=== PATIENT | female | born 1950 | race Caucasian/White ===

== ENCOUNTER 2017-05-03 10:02 | Outpatient (RCR) | payer MEDICARE, OTHER, SELFPAY ==
--- NOTE | 2017-05-03 10:24 | HP.OTEVAL ---
Patient's Visit Information TANYA RODRIGUEZ is a 67 year old F, referred to Occupational Therapy by Renae Martinez DO,, with a diagnosis of R 5th mallet finger. Date of Evaluation: 05/03/17 Occupational Therapist: Twyla Zee - Subjective Subjective: Arrived as walk over from [facility]. SHe noted that she is unsure how injury took place. She noted she saw Dr. Martinez prior to OT appointment and she requested hyperext. of DIP with PIP free of mallet finger splint. She noted she has been using tongue depressors for DIP support until she was able to get in. Pt. 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 Notes no pain and some decreased sensation. She was given options of custom mallet, prefab mallet, or orthoplast all completing needed alignemnt. After construction of orthoplast she did not like. Prefab mallet provided for when swelling decreased and custom made with thremoplast to be worn now until edema reduced. - Objective Concerns: Pt. noted no movement for 6 weeks. She is to schedule follow-up PRN. Once swelling decreases she is to switch to prefab mallet splint. Until then follow up will be PRN. - ROM MP: WFL PIP: PF R -4-82 through PROM; L WNL DIP: PF R -39- 15 through PROM; L WNL - Strength Tennis Ball Coverer Hand: R 38, L 59 Lateral Pinch: R 6, L 6 Tripod Pinch: R 4, L 6 - Edema DIP: slight edema at finger pad PF compared to L PF - Sensation Sensation Comments: Noted decreased sensation in R PF at this time. - Goals Goal:: Tanya to be (I) to return to all ADl/IADLs including cooking related tasks 4/5 trials 80% of the time by d/c. Goal:: Tanya to maintain correct alignment of PF DIP through use of splint 24/, 100% of the time, for next 6 weeks to decreased risk of deformity and promote increased (i). - Rehabilitation General Assessment: Tanya 67 y/o woment who in unclear of what cause inital injury. She noted that she first noticated mallet finger formation approximately 2 weeks ago. Rehabilitation Potential: Good - Anticipated Interventions Anticipated Interventions: A/AAROM/PROM, Strengthening, Orthoses, Joint Protection/Energy Conservation, Ergonomic Education, Fine Motor Coord/Yazan, ADL Training, Caregiver Training, Home Program - Visit Plan Frequency: PRN Duration: PRN General Plan: Tanya to call and return for appointment if splint does not feel comofrtable; follow up PRN. She noted Michelle does not want her to move it for 6 weeks. If splint does not feel comfortable she is to return for adjustment. She was provided with prefab Mallet and custom made mallet finger splint. When swelling decreases she is to switch to prefab mallet as it will be less bulky and provide increased comfort. Splint to be worn 24/. SHe verbalized understanding of wearing schedule, skin integrity, and follow up process. TEXT: Thank you for the opportunity to evaluate your patient. For Medicare and Medicare HMO plans, please review the plan of care and approve it. It will need to be FAXED BACK to us at [phone] for Medicare purposes. Please let me know if there are questions or concerns regarding this plan of care. Physician Signature: Date:
--- NOTE | 2017-08-06 09:44 | HP.OT.NRP ---
HP - Discharge Summary - Patient Information TANYA RODRIGUEZ was seen in my office for initial evaluation on 05/03/17. The following Plan of Care was established for this patient: Initial Frequency: PRN Initial Duration: PRN - Anticipated Interventions Anticipated Interventions: A/AAROM/PROM, Strengthening, Orthoses, Joint Protection/Energy Conservation, Ergonomic Education, Fine Motor Coord/Yazan, ADL Training, Caregiver Training, Home Program This patient was last seen in our office . Pertinent comments regarding their Occupational therapy will appear below: She was to followup PRN for splint. OT called and left message to ensure everything was going well. She never called back and will be d/c'd at this time. At this point I will be discontinuing this patient from occupational therapy. I would be happy to see this patient again in the future if found appropriate by the physician. Thank you! Twyla Zee
== END 2017-05-03 19:00 | disposition home or self-care (01) ==
LOC: OT 10:02
PROVIDERS: Family Provider Family Medicine Geriatric Medicine; PCP Family Medicine Geriatric Medicine; Visit Provider Orthopaedic Surgery
DX: M20.011 Mallet finger of right finger(s) (principal)
CPT/HCPCS: 97165; 97760; G8988

== ENCOUNTER → 2017-08-08 12:11 | Outpatient (CLI) | payer MEDICARE, OTHER, SELFPAY ==
[2017-08-08 17:22] LABS: Absolute Lymphocyte Count 1.36 X10^3/ul (0.83-4.51); Absolute Neutrophil Count 4.2 X10^3/uL (2.0-7.7); Basophil# 0.02 X10^3/uL; Basophil% 0.3 % (0-1); Eosinophil# 0.03 X10^3/uL; Eosinophils% 0.5 % (0-5); Hematocrit 39.9 % (37-47); Hemoglobin 13.4 g/dl (12.0-15.0); Lymphocyte # 1.36 X10^3/ul (4.0); Lymphocyte % 21.9 % (19-41); Mean Corp Hgb Conc 33.6 g/gl (32-36); Mean Corpuscular Hgb 32.3 pg (27.0-32.0); Mean Corpuscular Volume 96.1 fL (81-99); Mean Platelet Vol. 10.1 fl (6.2-12.0); Monocyte# 0.58 X10^3/uL; Monocyte% 9.4 % (0-10); Neutrophil % 67.7 % (47-70); POSITIVE COUNT NO; POSITIVE DIFFERENTIAL NO; POSITIVE MORPHOLOGY NO; Platelet Count 325 K/mm3 (150-450); RBC Distribution Width CV 11.4 % (11.6-14.6); RBC Distribution Width SD 39.3 fl (35.1-43.9); Red Blood Count 4.15 M/mm3 (4.2-5.4); White Blood Count 6.2 K/mm3 (4.4-11.0)
[2017-08-08 17:44] LABS: Vitamin D,25 Hydroxy 98.5 ng/mL (29.95-100.01)
[2017-08-08 17:49] LABS: ALB/GLOB Ratio 1.3 RATIO (0.9-2.4); AST(SGOT) 22 U/L (15-37); Alanine Aminotransfer ALT/SGPT 24 U/L (13-56); Albumin, Serum 3.9 g/dL (3.2-5.0); Alkaline Phosphatase 50 U/L (45-117); Anion Gap 5 (5-15); BUN 14 mg/dL (7-18); BUN/Creat Ratio 22.1 RATIO (10-20); Calcium,Total 8.6 mg/dL (8.5-10.1); Chloride 103 mmol/L (98-107); Creatinine, Serum 0.63 mg/dL (0.55-1.02); EST Glomerular Filtration Rate 100 mL/min (>60); Est Glom Filt Rate - Afr Amer 121 mL/min (>60); Globulin 3.1 g/dL (2.2-4.2); Glucose 90 mg/dL (74-106); Potassium 4.2 mmol/L (3.5-5.1); Sodium Level 139 mmol/L (136-145); Thyroid Stim Hormone (TSH) 3.46 uIU/mL (0.358-3.74)
[2017-08-10 12:04] LABS: Hep C Antibodies <0.1 s/co ratio (0.0-0.9)
== END ==
PROVIDERS: Family Provider Family Medicine Geriatric Medicine; PCP Family Medicine Geriatric Medicine; Visit Provider Family Medicine Geriatric Medicine
DX: R53.83 Other fatigue (principal); E55.9 Vitamin D deficiency, unspecified; Z13.89 Encounter for screening for other disorder
CPT/HCPCS: 36415; 80053; 82306; 84443; 85025; 86803

== ENCOUNTER → 2017-08-22 14:22 | Outpatient (CLI) | payer MEDICARE, OTHER, SELFPAY | PROVIDERS: Family Provider Family Medicine Geriatric Medicine; PCP Family Medicine Geriatric Medicine; Visit Provider Family Medicine Geriatric Medicine | DX: R50.9 Fever, unspecified (principal) | CPT/HCPCS: 87633 ==

== ENCOUNTER 2017-09-22 20:15 | Emergency (ER) | payer MEDICARE, OTHER, SELFPAY ==
[2017-09-22 20:15] VITALS: BP 131/66; PULSE 78; RESP 16; TEMP 36.6; O2SAT 98; BMI 19.8
--- NOTE | 2017-09-22 20:59 | ED.VISSUMM ---
- ER Visit Summary Date of Service: 09/22/17 Chief Complaint: I got bit by a cactus History of Present Illness: The patient is a 67 F presenting for evaluation secondary to some abnormalities of the right hand. Patient states that she was working in the garden and a cactus stuck her through her glove. She states that she immediately developed bruising on her right hand. She states that there is pain. She denies any fevers. Review of systems otherwise negative. Physical Examination: Physical exam unremarkable except for examination of the right hand. There is proximally a 4 cm area of ecchymosis over the dorsum of the hand going over the snuff box area. No evidence of subcutaneous emphysema or lymphangitic streaking. Test Results: None indicated Emergency Department Course and Treatment: Presenting for evaluation due to changes in the right hand after being stuck by a cactus. This seems most consistent with a hematoma, but the patient will be treated for the off chance that this is an early cellulitis. Patient will be started on Keflex, given a first dose in the emergency department, will be discharged with a course of this. She was given signs and symptoms which to return. Disposition: Discharge Impression: 1. Right hand hematoma This note was generated with [employer] dictation software. It may contain incorrect words, spelling, and punctuation that were not noted in review of the chart prior to signing ED Disposition - Plan for ED Patient: Disposition: Home or Assisted Living Chief Complaint: Abscess Diagnosis: Hematoma Instructions: ED Hematoma Prescriptions: Cephalexin [Keflex] 500 mg PO Q6 #40 cap Referrals: Anders Lundberg Chi, MD [Primary Care Provider] - 5-7 Days
[2017-09-22] MEDS: Cephalexin 250 MG Capsule 500 MG PO (21:04)
[2017-09-22 21:07] VITALS: BP 130/72; PULSE 80; RESP 18; O2SAT 96
== END 2017-09-22 21:07 | disposition home or self-care (01) ==
PROVIDERS: Emergency Provider Emergency Medicine; Family Provider Family Medicine Geriatric Medicine; PCP Family Medicine Geriatric Medicine
DX: S60.221A Contusion of right hand, initial encounter (principal); W45.8XXA Other foreign body or object entering through skin, initial encounter; Y93.H2 Activity, gardening and landscaping; Y92.096 Garden or yard of other non-institutional residence as the place of occurrence of the external cause; Y99.8 Other external cause status
CPT/HCPCS: 99283

== ENCOUNTER → 2017-12-26 15:51 | Outpatient (CLI) | payer MEDICARE, OTHER, SELFPAY ==
--- NOTE | 2017-12-26 15:54 | BI_ITS ---
MAMMOGRAPHY - BILATERAL SCREENING REASON FOR EXAM: Female, 67 years old. Routine annual screening examination. PERTINENT HISTORY: Aunt with breast cancer. Occasional right lateral breast pain. TECHNIQUE: Digital bilateral breast shyam (3D mammographic acquisition) in the CC and MLO projections. 2-D mediolateral oblique (MLO) and craniocaudad (CC) views of both breasts were obtained. CAD: Full Field Digital Mammography with Computer Added Detection was performed. COMPARISON: Comparison is made with prior study dated November 21, 2016 and November 11, 2015. FINDINGS: Breast Composition: The breasts are heterogeneously dense, which may obscure small masses. There are no dominant masses or suspicious calcifications. No other significant abnormalities are identified. There has been no significant change since the prior study. BI/SCREENING MAMM (CAD), BILAT IMPRESSION: Stable bilateral screening mammogram. Yearly follow-up mammogram recommended. (A) ASSESSMENT CATEGORY: BIRADS Category 1: Negative. A letter regarding these results will be sent to the patient by the facility within 30 days. Approximately 10% of breast cancers are not detected by mammography. A normal mammogram should not delay biopsy of a clinically suspicious abnormality. [id number] Electronically Signed: Matti Sevilla MD at 8:06 EDT Tel [phone], Service support ,
== END ==
PROVIDERS: Family Provider Family Medicine Geriatric Medicine; PCP Family Medicine Geriatric Medicine; Visit Provider Family Medicine Geriatric Medicine
DX: Z12.31 Encounter for screening mammogram for malignant neoplasm of breast (principal)
CPT/HCPCS: 77063; 77067

== ENCOUNTER → 2018-02-20 16:22 | Outpatient (CLI) | payer MEDICARE, OTHER, SELFPAY ==
[2018-02-20 17:09] LABS: Absolute Lymphocyte Count 1.56 X10^3/ul (0.83-4.51); Absolute Neutrophil Count 5.3 X10^3/uL (2.0-7.7); Basophil# 0.02 X10^3/uL; Basophil% 0.3 % (0-1); Eosinophil# 0.04 X10^3/uL; Eosinophils% 0.5 % (0-5); Lymphocyte # 1.56 X10^3/ul (4.0); Lymphocyte % 20.5 % (19-41); Mean Corp Hgb Conc 32.5 g/gl (32-36); Mean Corpuscular Hgb 31.8 pg (27.0-32.0); Mean Corpuscular Volume 97.8 fL (81-99); Mean Platelet Vol. 9.7 fl (6.2-12.0); Monocyte# 0.71 X10^3/uL; Monocyte% 9.3 % (0-10); Neutrophil # 5.28 X10^3/uL (2.7-7.7); Neutrophil % 69.3 % (47-70); Platelet Count 324 K/mm3 (150-450); RBC Distribution Width CV 11.6 % (11.6-14.6); Red Blood Count 4.09 M/mm3 (4.2-5.4); White Blood Count 7.6 K/mm3 (4.4-11.0)
[2018-02-20 17:18] LABS: POSITIVE COUNT NO; POSITIVE DIFFERENTIAL NO; POSITIVE MORPHOLOGY NO
[2018-02-20 17:30] LABS: Vitamin D,25 Hydroxy 107.2 ng/mL (29.95-100.01)
[2018-02-20 17:45] LABS: ALB/GLOB Ratio 1.2 RATIO (0.9-2.4); AST(SGOT) 13 U/L (15-37); Alanine Aminotransfer ALT/SGPT 23 U/L (13-56); Alkaline Phosphatase 63 U/L (45-117); Anion Gap 8 (5-15); BUN 24 mg/dL (7-18); BUN/Creat Ratio 32.3 RATIO (10-20); Calcium,Total 8.7 mg/dL (8.5-10.1); Chloride 107 mmol/L (98-107); Creatinine, Serum 0.74 mg/dL (0.55-1.02); EST Glomerular Filtration Rate 83 mL/min (>60); Est Glom Filt Rate - Afr Amer 100 mL/min (>60); Globulin 3.2 g/dL (2.2-4.2); Glucose 94 mg/dL (74-106); Potassium 4.3 mmol/L (3.5-5.1); Protein, Total 7.2 g/dL (6.4-8.2); Sodium Level 143 mmol/L (136-145); Thyroid Stim Hormone (TSH) 2.95 uIU/mL (0.358-3.74)
[2018-02-21 07:26] LABS: T3 Uptake 35 % (30-39); T4 Free Direct 0.97 ng/dL (0.76-1.46)
== END ==
PROVIDERS: Family Provider Family Medicine Geriatric Medicine; PCP Family Medicine Geriatric Medicine; Referring Provider Family Medicine Geriatric Medicine; Visit Provider Family Medicine Geriatric Medicine
DX: E55.9 Vitamin D deficiency, unspecified (principal); R53.83 Other fatigue; N39.0 Urinary tract infection, site not specified
CPT/HCPCS: 36415; 80053; 82306; 84439; 84443; 84479; 85025; 87086; 87088

== ENCOUNTER → 2018-08-13 16:21 | Outpatient (CLI) | payer MEDICARE, OTHER, SELFPAY ==
[2018-08-13 17:28] LABS: Absolute Lymphocyte Count 1.66 X10^3/ul (0.83-4.51); Absolute Neutrophil Count 4.1 X10^3/uL (2.0-7.7); Basophil# 0.03 X10^3/uL; Basophil% 0.5 % (0-1); Eosinophil# 0.04 X10^3/uL; Eosinophils% 0.6 % (0-5); Hematocrit 38.7 % (37-47); Hemoglobin 12.7 g/dl (12.0-15.0); Lymphocyte # 1.66 X10^3/ul (4.0); Lymphocyte % 26.1 % (19-41); Mean Corp Hgb Conc 32.8 g/gl (32-36); Mean Corpuscular Hgb 30.5 pg (27.0-32.0); Mean Platelet Vol. 10.1 fl (6.2-12.0); Monocyte# 0.54 X10^3/uL; Monocyte% 8.5 % (0-10); Neutrophil # 4.09 X10^3/uL (2.7-7.7); Neutrophil % 64.1 % (47-70); Platelet Count 323 K/mm3 (150-450); RBC Distribution Width CV 11.3 % (11.6-14.6); RBC Distribution Width SD 37.8 fl (35.1-43.9); Red Blood Count 4.16 M/mm3 (4.2-5.4); White Blood Count 6.4 K/mm3 (4.4-11.0)
[2018-08-13 17:30] LABS: POSITIVE COUNT NO; POSITIVE DIFFERENTIAL NO; POSITIVE MORPHOLOGY NO
[2018-08-13 17:53] LABS: Vitamin D,25 Hydroxy 56.4 ng/mL (29.95-100.01)
[2018-08-13 18:20] LABS: ALB/GLOB Ratio 1.2 RATIO (0.9-2.4); AST(SGOT) 25 U/L (15-37); Alanine Aminotransfer ALT/SGPT 24 U/L (13-56); Albumin, Serum 3.8 g/dL (3.2-5.0); Alkaline Phosphatase 57 U/L (45-117); Anion Gap 8 (5-15); BUN 10 mg/dL (7-18); BUN/Creat Ratio 14.3 RATIO (10-20); Calcium,Total 8.9 mg/dL (8.5-10.1); Chloride 103 mmol/L (98-107); EST Glomerular Filtration Rate 89 mL/min (>60); Est Glom Filt Rate - Afr Amer 107 mL/min (>60); Globulin 3.2 g/dL (2.2-4.2); Glucose 78 mg/dL (74-106); Potassium 4.2 mmol/L (3.5-5.1); Sodium Level 139 mmol/L (136-145); Thyroid Stim Hormone (TSH) 3.25 uIU/mL (0.358-3.74)
== END ==
PROVIDERS: Family Provider Family Medicine Geriatric Medicine; PCP Family Medicine Geriatric Medicine; Visit Provider Family Medicine Geriatric Medicine
DX: E55.9 Vitamin D deficiency, unspecified (principal); R53.83 Other fatigue
CPT/HCPCS: 36415; 80053; 82306; 84443; 85025

== ENCOUNTER → 2018-12-30 16:20 | Outpatient (CLI) | payer MEDICARE, OTHER, SELFPAY ==
--- NOTE | 2018-12-30 16:24 | BI_ITS ---
MAMMOGRAPHY - BILATERAL SCREENING REASON FOR EXAM: Female, 68 years old. Routine annual screening examination. PERTINENT HISTORY: Aunt with breast cancer. TECHNIQUE: Digital bilateral breast kacie (3D mammographic acquisition) in the CC and MLO projections. 2-D mediolateral oblique (MLO) and craniocaudad (CC) views of both breasts were obtained. CAD: Full Field Digital Mammography with Computer Added Detection was performed. COMPARISON: Comparison is made with prior study dated December 26, 2017 and November 21, 2016. FINDINGS: Breast Composition: The breasts are heterogeneously dense, which may obscure small masses. There are no dominant masses or suspicious calcifications. No other significant abnormalities are identified. There has been no significant change since the prior study. BI/SCREEN MAMM (CAD) W/KACIE BILAT IMPRESSION: Stable bilateral screening mammogram. Yearly follow-up mammogram recommended. (A) ASSESSMENT CATEGORY: BIRADS Category 1: Negative. A letter regarding these results will be sent to the patient by the facility within 30 days. Approximately 10% of breast cancers are not detected by mammography. A normal mammogram should not delay biopsy of a clinically suspicious abnormality. [id number] Electronically Signed: Matti Sevilla, at 8:32 EDT , Service support ,
== END ==
PROVIDERS: Family Provider Family Medicine Geriatric Medicine; PCP Family Medicine Geriatric Medicine; Referring Provider Family Medicine Geriatric Medicine; Visit Provider Family Medicine Geriatric Medicine
DX: Z12.31 Encounter for screening mammogram for malignant neoplasm of breast (principal)
CPT/HCPCS: 77063; 77067

== ENCOUNTER → 2019-02-11 16:56 | Outpatient (CLI) | payer MEDICARE, OTHER, SELFPAY ==
[2019-02-11 17:53] LABS: Absolute Lymphocyte Count 2.39 X10^3/uL (0.83-4.51); Absolute Neutrophil Count 6.7 X10^3/uL (2.0-7.7); Basophil# 0.05 X10^3/uL; Basophil% 0.5 % (0-1); Eosinophil# 0.04 X10^3/uL; Eosinophils% 0.4 % (0-5); Hematocrit 42.1 % (37-47); Hemoglobin 13.5 g/dL (12.0-15.0); Lymphocyte # 2.39 X10^3/ul (4.0); Lymphocyte % 23.2 % (19-41); Mean Corp Hgb Conc 32.1 g/dL (32-36); Mean Corpuscular Hgb 31.7 pg (27.0-32.0); Mean Corpuscular Volume 98.8 fL (81-99); Mean Platelet Vol. 9.9 fl (6.2-12.0); Monocyte# 1.03 X10^3/uL; NRBC Flagged by Analyzer 0 % (0-5); Neutrophil # 6.74 X10^3/uL (2.7-7.7); Neutrophil % 65.5 % (47-70); Platelet Count 328 K/mm3 (150-450); RBC Distribution Width CV 11.7 % (11.6-14.6); RBC Distribution Width SD 42.6 fl (35.1-43.9); Red Blood Count 4.26 M/mm3 (4.2-5.4); White Blood Count 10.3 K/mm3 (4.4-11.0)
[2019-02-11 18:11] LABS: Vitamin D,25 Hydroxy 28.8 ng/mL (29.95-100.01)
[2019-02-11 18:25] LABS: ALB/GLOB Ratio 1.3 RATIO (0.9-2.4); AST(SGOT) 18 U/L (15-37); Alanine Aminotransfer ALT/SGPT 17 U/L (13-56); Albumin, Serum 4.3 g/dL (3.2-5.0); Alkaline Phosphatase 64 U/L (45-117); Anion Gap 7 (5-15); BUN 19 mg/dL (7-18); BUN/Creat Ratio 23.5 RATIO (10-20); Calcium,Total 8.9 mg/dL (8.5-10.1); Chloride 103 mmol/L (98-107); Creatinine, Serum 0.81 mg/dL (0.55-1.02); EST Glomerular Filtration Rate 75 mL/min (>60); Est Glom Filt Rate - Afr Amer 91 mL/min (>60); Globulin 3.4 g/dL (2.2-4.2); Glucose 80 mg/dL (74-106); Potassium 3.8 mmol/L (3.5-5.1); Protein, Total 7.7 g/dL (6.4-8.2); Sodium Level 137 mmol/L (136-145); Thyroid Stim Hormone (TSH) 3.43 uIU/mL (0.358-3.74)
== END ==
PROVIDERS: Family Provider Family Medicine Geriatric Medicine; PCP Family Medicine Geriatric Medicine; Visit Provider Family Medicine Geriatric Medicine
DX: R53.83 Other fatigue (principal); E55.9 Vitamin D deficiency, unspecified
CPT/HCPCS: 36415; 80053; 82306; 84443; 85025

== ENCOUNTER → 2019-08-19 16:21 | Outpatient (CLI) | payer MEDICARE, OTHER, SELFPAY ==
[2019-05-15 16:10] VITALS: BMI 19.8
[2019-08-19 17:30] LABS: Absolute Lymphocyte Count 1.56 X10^3/uL (0.83-4.51); Absolute Neutrophil Count 2.5 X10^3/uL (2.0-7.7); Basophil# 0.03 X10^3/uL; Basophil% 0.7 % (0-1); Eosinophil# 0.03 X10^3/uL; Eosinophils% 0.7 % (0-5); Hematocrit 34.7 % (37-47); Hemoglobin 11.5 g/dL (12.0-15.0); Lymphocyte # 1.56 X10^3/ul (4.0); Lymphocyte % 34.4 % (19-41); Mean Corp Hgb Conc 33.1 g/dL (32-36); Mean Corpuscular Hgb 32.8 pg (27.0-32.0); Mean Corpuscular Volume 98.9 fL (81-99); Mean Platelet Vol. 9.9 fl (6.2-12.0); Monocyte# 0.42 X10^3/uL; Monocyte% 9.3 % (0-10); NRBC Flagged by Analyzer 0 % (0-5); Neutrophil # 2.49 X10^3/uL (2.7-7.7); Neutrophil % 54.7 % (47-70); Platelet Count 263 K/mm3 (150-450); RBC Distribution Width CV 11.3 % (11.6-14.6); RBC Distribution Width SD 40.7 fl (35.1-43.9); Red Blood Count 3.51 M/mm3 (4.2-5.4); White Blood Count 4.5 K/mm3 (4.4-11.0)
[2019-08-19 17:43] LABS: ALB/GLOB Ratio 1.3 RATIO (0.9-2.4); AST(SGOT) 20 U/L (15-37); Alanine Aminotransfer ALT/SGPT 17 U/L (13-56); Albumin, Serum 3.7 g/dL (3.2-5.0); Alkaline Phosphatase 45 U/L (45-117); Anion Gap 6 (5-15); BUN 11 mg/dL (7-18); BUN/Creat Ratio 15.2 RATIO (10-20); Calcium,Total 8.5 mg/dL (8.5-10.1); Chloride 102 mmol/L (98-107); Creatinine, Serum 0.72 mg/dL (0.55-1.02); EST Glomerular Filtration Rate 85 mL/min (>60); Est Glom Filt Rate - Afr Amer 103 mL/min (>60); Globulin 2.9 g/dL (2.2-4.2); Glucose 92 mg/dL (74-106); Potassium 4.1 mmol/L (3.5-5.1); Protein, Total 6.6 g/dL (6.4-8.2); Sodium Level 137 mmol/L (136-145); Thyroid Stim Hormone (TSH) 1.17 uIU/mL (0.358-3.74)
[2019-08-19 18:20] LABS: Vitamin D,25 Hydroxy 52.9 ng/mL
== END ==
PROVIDERS: PCP Family Medicine Geriatric Medicine; Visit Provider Family Medicine Geriatric Medicine
DX: E55.9 Vitamin D deficiency, unspecified (principal); R53.83 Other fatigue
CPT/HCPCS: 36415; 80053; 82306; 84443; 85025

== ENCOUNTER → 2019-09-08 15:31 | Outpatient (CLI) | payer MEDICARE, OTHER, SELFPAY ==
[2019-05-15 16:10] VITALS: BMI 19.8
--- NOTE | 2019-09-08 15:38 | RAD_ITS ---
STUDY: X-RAY - LEFT FOOT CLINICAL: Female, 69 years old. LEFT BIG TOE PAIN TECHNIQUE: 3 view(s) of the foot. COMPARISON: None. FINDINGS: Normal talus, calcaneus, and tarsal bones. Normal visualized subtalar, talonavicular, calcaneocuboid, tarsal and tarsometatarsal articulations. Normal metatarsi. There is degenerative arthrosis of the metatarsophalangeal joint of the hallux . Normal tibial and fibular sesamoid bones. There is degenerative arthrosis of the interphalangeal joint of the great toe. Normal phalanges of the great toe. Normal second through fifth metatarsophalangeal joints. PIP and DIP joint arthrosis The soft tissue structures are unremarkable. RAD/Foot min 3 Views IMPRESSION: Degenerative arthrosis demonstrated fracture or suspicious osseous lesion Electronically Signed: Davis Franco MD at 15:54 EDT , Service support ,
== END ==
PROVIDERS: PCP Family Medicine Geriatric Medicine; Visit Provider Family Medicine Geriatric Medicine
DX: M79.609 Pain in unspecified limb (principal)
CPT/HCPCS: 73630

== ENCOUNTER → 2019-09-17 16:24 | Outpatient (CLI) | payer MEDICARE, OTHER, SELFPAY ==
[2019-05-15 16:10] VITALS: BMI 19.8
--- NOTE | 2019-09-17 16:32 | RAD_ITS ---
STUDY: X-RAY - LUMBAR SPINE REASON FOR EXAM: Female, 69 years old. Worsening back and hip pain TECHNIQUE: 3 view(s) of the lumbar spine were obtained. COMPARISON: 2009 FINDINGS: Normal lumbar lordosis. There is a mild dextroscoliosis of the lumbar spine. There is a normal alignment of the vertebrae in the lateral view. Normal vertebral bodies and endplates. There is multi-level degenerative disc disease with multi-level disc space narrowing. There is no demonstrated fracture. The soft tissue structures are unremarkable. RAD/Lumbar Spine 2 or 3 Views IMPRESSION: Degenerative changes of the spine, as detailed above. Electronically Signed: Davis Franco MD at 9:16 EDT , Service support ,
--- NOTE | 2019-09-17 16:32 | RAD_ITS ---
STUDY: X-RAY - PELVIS AND LEFT HIP REASON FOR EXAM: Female, 69 years old. Worsening left hip pain TECHNIQUE: 3 views of the pelvis and hip. COMPARISON: 2016 FINDINGS: There is a non-specific bowel gas pattern. Normal visualized soft tissue structures. There is diffuse demineralization of the osseous structures. There is narrowing with cortical sclerosis and osteophyte formation of the sacroiliac joint consistent with degenerative osteoarthritic changes. Normal bilateral superior and inferior pubic rami. Normal pubic symphysis. Normal bilateral ischial tuberosities. Normal visualized femoral head. There is osteoarthritic spur formation of the acetabular rim. There is moderate to severe articular joint space narrowing of the hip, findings have progressed since the previous study. RAD/HIP, UNI W/ Pelvis 2-3 Views IMPRESSION: Progression of left hip arthrosis since 2016. No demonstrated fracture or significant subchondral change. Age consistent right hip and SI joint arthrosis Electronically Signed: Davis Franco MD at 9:06 EDT , Service support ,
[2019-09-17 17:46] LABS: Thyroid Stim Hormone (TSH) 0.26 uIU/mL (0.358-3.74)
== END ==
PROVIDERS: Internal Medicine Endocrinology, Diabetes & Metabolism; PCP Family Medicine Geriatric Medicine; Referring Provider Family Medicine Geriatric Medicine; Visit Provider Family Medicine Geriatric Medicine
DX: E03.9 Hypothyroidism, unspecified (principal); M16.0 Bilateral primary osteoarthritis of hip
CPT/HCPCS: 36415; 72100; 73502; 84439; 84443

== ENCOUNTER → 2019-10-29 17:57 | Outpatient (CLI) | payer MEDICARE, OTHER, SELFPAY ==
[2019-05-15 16:10] VITALS: BMI 19.8
== END ==
PROVIDERS: PCP Family Medicine Geriatric Medicine; Referring Provider Family Medicine Geriatric Medicine; Visit Provider Family Medicine Geriatric Medicine
DX: N39.0 Urinary tract infection, site not specified (principal)
CPT/HCPCS: 87077; 87086; 87088; 87186

== ENCOUNTER → 2019-11-07 16:20 | Outpatient (CLI) | payer MEDICARE, OTHER, SELFPAY ==
[2019-05-15 16:10] VITALS: BMI 19.8
--- NOTE | 2019-11-07 16:26 | MRI_ITS ---
STUDY: MRI LUMBAR SPINE WITHOUT CONTRAST REASON FOR EXAM: Female, 69 years old. STENOSIS -- pain low back and left leg x 2 months, prev lumbar surgery 1984 TECHNIQUE: Standardized fat and water weighted pulse sequences were obtained in the sagittal and axial planes. COMPARISON: Lumbar spine x-rays 09/17/2019 MRI of the lumbar spine 08/30/2004 FINDINGS: T12-L1: Normal endplates. Narrowed disc space with desiccation of disc and minimal annular bulge. Normal central canal and bilateral lateral recesses. Normal bilateral intervertebral neural foramina. Normal lumbar lordosis. There is no substantial scoliosis. Normal conus medullaris that terminates at the L1-2: Normal endplates. Narrowed disc space with desiccation of the disc and minimal annular bulge.. Normal bilateral facet joints. Normal central canal and bilateral lateral recesses. Normal bilateral intervertebral neural foramina. L2-3: Normal endplates. Normal disc height, desiccation and mild annular bulge.. Normal bilateral facet joints. Normal central canal and bilateral lateral recesses. Normal bilateral intervertebral neural foramina. L3-4: Normal endplates. Normal disc height, desiccation and mild annular bulge.. Mild facet arthropathy and thickening of ligamenta flava.. Normal central canal and bilateral lateral recesses. Mild to moderate bilateral neuroforaminal encroachment.. L4-5: Normal endplates. Normal disc height, desiccation and tiny right foraminal disc protrusion.. Bilateral facet arthropathy.. Normal central canal and mild bilateral recess encroachment.. Minor right foraminal encroachment. L5-S1: Status post bilateral laminectomy. Normal endplates. Normal disc height, hydration and morphology. Normal bilateral facet joints. Normal central canal and bilateral lateral recesses. Normal bilateral intervertebral neural foramina. Normal visualized sacral ala. Normal visualized paraspinous soft tissue structures. There has been interval progression of disc disease since prior exam and the postsurgical changes are new. MRI/Spine Lumbar (Routine) IMPRESSION: No evidence for acute fracture or other significant bony pathology. Status post bilateral laminectomy at L5-S1. Spinal stenosis at L4-5 secondary to tiny right foraminal disc protrusion and bilateral facet arthropathy. Mild to moderate bilateral neuroforaminal stenosis at L3-4 secondary to mild annular bulge and facet arthropathy with thickening of ligamenta flava Electronically Signed: Carmelo Rogel MD at 19:36 EDT , Service support ,
== END ==
PROVIDERS: PCP Family Medicine Geriatric Medicine; Referring Provider Family Medicine Geriatric Medicine; Visit Provider Family Medicine Geriatric Medicine
DX: M51.86 Other intervertebral disc disorders, lumbar region (principal)
CPT/HCPCS: 72148

== ENCOUNTER → 2019-11-18 16:10 | Outpatient (CLI) | payer MEDICARE, OTHER, SELFPAY ==
[2019-11-12 15:03] VITALS: BMI 19.8
== END ==
PROVIDERS: PCP Family Medicine Geriatric Medicine; Visit Provider Family Medicine Geriatric Medicine
DX: N39.0 Urinary tract infection, site not specified (principal)
CPT/HCPCS: 87077; 87086; 87088; 87186

== ENCOUNTER → 2019-11-21 16:32 | Outpatient (CLI) | payer MEDICARE, OTHER, SELFPAY ==
[2019-11-12 15:03] VITALS: BMI 19.8
--- NOTE | 2019-11-21 16:37 | CT_ITS ---
STUDY: CT ABDOMEN AND PELVIS WITHOUT CONTRAST REASON FOR EXAM: Female, 69 years old. RT FLANK PAIN and LLQ pain. Prior hysterectomy. RADIATION DOSAGE (If Supplied By Facility): CTDIvol = ( 6.88 ) mGy, DLP = ( 340.32 ) mGycm TECHNIQUE: Transaxial images were obtained from the dome of the diaphragm to the symphysis pubis without oral contrast, and without intravenous contrast. Sagittal and coronal images were reconstructed. Individualized dose optimization techniques were used for this CT. COMPARISON: 09/25/2011. FINDINGS: The visualized lung bases are unremarkable. The visualized portions of the heart are within normal limits. 7 mm right hepatic cyst in the liver. Normal gallbladder and extrahepatic biliary system. Normal spleen. Normal pancreas. Normal bilateral adrenal glands. Normal right kidney. Normal left kidney. Normal visualized stomach. Normal small intestine. Fecal retention in the colon. The appendix is not visualized. Normal abdominal aorta. Normal inferior vena cava. Normal retroperitoneum. Normal urinary bladder. Normal abdominal wall. Mild degenerative changes and slight scoliosis. CT/Abdomen/Pelvis without Cont IMPRESSION: Diffuse colonic fecal retention. No renal stones or hydronephrosis bilaterally. Hepatic cyst. Electronically Signed: Lambert Rojas DO at 17:24 EDT Tel [phone], Service support ,
== END ==
PROVIDERS: PCP Family Medicine Geriatric Medicine; Referring Provider Family Medicine Geriatric Medicine; Visit Provider Family Medicine Geriatric Medicine
DX: R10.30 Lower abdominal pain, unspecified (principal)
CPT/HCPCS: 74176

== ENCOUNTER → 2019-12-19 16:46 | Outpatient (CLI) | payer MEDICARE, OTHER, SELFPAY ==
[2019-12-08 16:22] VITALS: BMI 19.8
--- NOTE | 2019-12-19 16:48 | CT_ITS ---
CT of the left lower extremity INDICATION: Left hip pain, preop May toe arthroplasty TECHNIQUE: Multiple thin section axial CT images of the left lower extremity were obtained through the hip joint, and knee joint and filmed in bone windows. Dose limiting techniques were utilized. Furthermore, sagittal and coronal reconstructions were performed. Next FINDINGS: No abnormal soft tissue mass, lymphadenopathy, fluid collection. No acute fracture or dislocation. No lytic or blastic lesions. Moderate joint space narrowing and osteophyte formation of the left hip joint consistent with moderate arthrosis. IMPRESSION: Moderate left hip arthrosis. Electronically Signed: Mikael Jorge MD at 17:21 EDT Tel , Service support , CT/Extremity Lower without Contra
== END ==
PROVIDERS: PCP Family Medicine Geriatric Medicine; Referring Provider Orthopaedic Surgery; Visit Provider Orthopaedic Surgery
DX: M16.12 Unilateral primary osteoarthritis, left hip (principal)
CPT/HCPCS: 73700

== ENCOUNTER → 2019-12-22 07:08 | Outpatient (CLI) | payer MEDICARE, OTHER, SELFPAY ==
[2019-12-08 16:22] VITALS: BMI 19.8
== END ==
PROVIDERS: PCP Family Medicine Geriatric Medicine; Referring Provider Family Medicine Geriatric Medicine; Visit Provider Family Medicine Geriatric Medicine
DX: R94.31 Abnormal electrocardiogram [ECG] [EKG] (principal)
CPT/HCPCS: 78452; 93017; A9500; A4216

== ENCOUNTER 2019-12-23 07:32 | Day surgery (SDC) | payer MEDICARE, OTHER, SELFPAY ==
[2019-12-08 16:22] VITALS: BMI 19.8
--- NOTE | 2019-12-16 15:58 | EKG12_ITS ---
Test Reason : PRE-OP Blood Pressure : / mmHG Vent. Rate : 068 BPM Atrial Rate : 068 BPM P-R Int : 120 ms QRS Dur : 076 ms QT Int : 434 ms P-R-T Axes : 058 -47 031 degrees QTc Int : 461 ms Normal sinus rhythm Left anterior fascicular block Abnormal ECG Confirmed by FAIZAN VIRGEN, CINDA ([id number]), film and video editor FEMI GAMINO ([id number]) on 12/17/2019 9:31:52 AM Referred By: Sivakumar Saba Confirmed By:CINDA GLORIA MD
[2019-12-16 16:23] LABS: Bacteria 0 SEEN /hpf (None Seen); Mucous, Urine 0 SEEN /hpf (<or=2+); Red Blood Cells-Urine 0 SEEN /hpf (0-5); Squamous Epithelial Cells - UA 0 SEEN /hpf (5-10); White Blood Cells 0 SEEN /hpf (0-5)
[2019-12-16 16:45] LABS: Color, Urine Yellow (Yellow); Glucose, Dipstick Normal (Normal); Ketone-Dipstick 5 mg/dl (Negative); Leukocyte Esterase-Dipstick 25 /ul (Negative); Nitrite-Dipstick Negative (Negative); Occult Blood-Urine 25 /ul (Negative); Protein-Dipstick Negative (Negative); Urine Bilirubin Dipstick Negative (Negative); Urine Clarity Clear (Clear); Urine Urobilinogen Normal (Normal); Urine pH 6.5 (5.0 - 8.0)
[2019-12-16 16:49] LABS: Absolute Neutrophil Count 4.4 X10^3/uL (2.0-7.7); Basophil# 0.02 X10^3/uL; Basophil% 0.3 % (0-1); Eosinophil# 0.01 X10^3/uL; Eosinophils% 0.2 % (0-5); Hematocrit 40.1 % (37-47); Hemoglobin 13.3 g/dL (12.0-15.0); Lymphocyte % 17.8 % (19-41); Mean Corp Hgb Conc 33.2 g/dL (32-36); Mean Corpuscular Hgb 33.2 pg (27.0-32.0); Mean Platelet Vol. 8.9 fl (6.2-12.0); Monocyte# 0.66 X10^3/uL; Monocyte% 10.7 % (0-10); NRBC Flagged by Analyzer 0 % (0-5); Neutrophil # 4.35 X10^3/uL (2.7-7.7); Neutrophil % 70.5 % (47-70); Platelet Count 358 K/mm3 (150-450); RBC Distribution Width CV 11.1 % (11.6-14.6); RBC Distribution Width SD 41.1 fl (35.1-43.9); Red Blood Count 4.01 M/mm3 (4.2-5.4); White Blood Count 6.2 K/mm3 (4.4-11.0)
[2019-12-16 16:57] LABS: Anion Gap 5 (5-15); BUN 9 mg/dL (7-18); BUN/Creat Ratio 13.4 RATIO (10-20); Calcium,Total 8.8 mg/dL (8.5-10.1); Chloride 102 mmol/L (98-107); Creatinine, Serum 0.67 mg/dL (0.55-1.02); EST Glomerular Filtration Rate 93 mL/min (>60); Est Glom Filt Rate - Afr Amer 112 mL/min (>60); Glucose 97 mg/dL (74-106); Sodium Level 136 mmol/L (136-145)
[2019-12-16 17:09] LABS: Partial Thromboplast Time 27.6 Seconds (24.1-36.2)
[2019-12-16 17:22] LABS: Magnesium 2.5 mg/dL (1.6-2.6); Thyroid Stim Hormone (TSH) 1.58 uIU/mL (0.358-3.74)
[2019-12-23] VITALS (13 sets, daily range): BP systolic 107–133; BP diastolic 58–76; PULSE 47–79; RESP 14–16; TEMP 36.2–37.1; O2SAT 92–100; BMI 21.2
[2019-12-23] MEDS: Gabapentin 600 MG Tablet PO (10:06)
[2019-12-23] MEDS: Celecoxib 200 MG Capsule 400 MG PO (10:06)
[2019-12-23] MEDS: Acetaminophen 500 MG Tablet 1000 MG PO ×2 (10:06→17:40)
[2019-12-23] MEDS: Scopolamine 1mg/72hr Patch 1 PATCH TRANSDERM. (10:07)
[2019-12-23] MEDS: Lactated Ringers 1,000 ML 999 ML IV (10:08)
[2019-12-23 10:16] LABS: Bedside Glucose 89 mg/dL (70-110)
--- NOTE | 2019-12-23 11:16 | HP.PCM_ITS ---
History and Physical Date of Admission: 12/23/19 Intake Intake Visit Reasons: left hip Is patient in pain?: Yes Allergies No Known Allergies Allergy (Verified 12/08/19 16:00) Medications ergocalciferol (vitamin D2) 1,250 mcg (50,000 unit) capsule 50,000 unit PO QMONTH 05/03/17 [History Confirmed 12/08/19] estradiol 0.1 mg/24 hr semiweekly transdermal patch 1 patch TRANSDERMAL ONCE 05/03/17 [History Confirmed 12/08/19] lidocaine 5 % topical patch 1 patch TOPICAL ONCE 05/03/17 [History Confirmed 12/08/19] meloxicam 15 mg tablet 15 mg PO QDAY 05/03/17 [History Confirmed 12/08/19] levothyroxine 75 mcg tablet 75 mcg PO DAILY #90 tab 05/15/19 [Rx Confirmed 12/08/19] gabapentin 300 mg capsule 300 mg PO DAILY 11/12/19 [History Confirmed 12/08/19] linaclotide 72 mcg capsule 72 mcg PO DAILY 12/08/19 [History Confirmed 12/08/19] PFSH Social History (Updated 12/08/19 @ 16:[address] Sivakumar Saba DO) Smoking Status: Former smoker HPI left hip: Details: Parts of this documentation were recorded by a scribe, this documentation accurately reflects the service provided and the decisions made by me, Dr. Sivakumar Saba DO 12/08/19 0807. TANYA RODRIGUEZ is a 69 year old F here today for continued left hip pain. Patient notes that her pain is over her groin. Patient complains of popping and clicking. Her pain increases with sitting. She has increased pain in the evening and she is unable to sleep due to her pain. Patient would like to discuss a total hip arthroplasty. She continues to have pain from her impacted bowel. Patient also notes that she had a bacterial bladder infection which was treated with 2 antibiotics. She notes that she never had an symptoms and is unsure if her infection was fully resolved. ROS Musc Reports joint pain, Denies numbness, Reports stiffness, Denies tingling Skin/Breast Reports system reviewed and no additional complaints, except as docu Neuro Yes system reviewed and no additional complaints, except as docu, No numbness, No tingling Ortho Exam Left Hip Skin/Wound: Yes CDI, No Ecchymosis, No Erythema Hip: Absent eccymosis or erythema HIP: pain with IR and ER. Supplemental Info 11/07/2019 x-ray left hip moderate to severe joint space narrowing with sub chondral sclerosis and spurring Assessment & Plan Problems 1. Primary osteoarthritis of left hip M16.12 Plan Spoke with the patient about the surgical procedure and recovery. Explained the increased risks of constipation due to pain medications following surgery. She will take stool softner around the time of surgery. She will be treated for a bladder infection if she is positive during her PAT testing. Patient will be on a blood thinner for 3 weeks following surgery. She will have hip precautions for 3 months. Explained the risks of surgery. She will need to be on oral antibiotics prior to dental work lifelong. She will need a CT scan prior to her surgery for templating. 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 Explained her conservative options- physical therapy, NSAIDs. Patient will be a same day surgery. She did not want oxycodone for pain due to her husbands reactions. She prefers norco. Patient will not be able to take aleve or ibuprofen 7 days prior to surgery and 3 weeks following her surgery. Reviewed the pre-operative plans with the patient. Risks and benefits of the procedure were fully explained, including but not limited to infection, neurovascular injury, continued pain, stiffness, need for further surgery, re- injury, DVT, PE, general risks of anesthesia, and loss of limb or life. The patient understands all the risks and does wish to proceed with written consent. Follow up for her 2 week post op appt or sooner if pain, swelling, numbness or associated symptoms, or concerns develop. All questions answered. Patient in agreement of plan. Coding Level of Care Code Off vis,est,level 3 Diagnoses Primary osteoarthritis of left hip M16.12 ??Osteoarthritis type: primary I have re-examined the patient. There are no clinical changes since date of exam Procedure Criteria Procedure Type: Elective COVID Risk Discussion: The surgeon/proceduralist and patient have discussed in detail the risk of exposure to and/or potential harm posed by the COVID-19 virus with having a surgery/procedure at this time versus the risk of delaying the surgery/procedure. It is not possible to know either the risk of delaying the surgery or procedure or chance of getting an infection with perfect accuracy, but a joint decision was made between the patient and the surgeon/proceduralist to proceed at this time with the scheduled surgery/procedure as indicated on the consent form.
[2019-12-23] MEDS: Cefazolin 2 GM in 0.9% Normal Saline 100 ML IV (11:35)
[2019-12-23] MEDS: dexAMETHasone 10 MG/ML Vial IV (12:05)
--- NOTE | 2019-12-23 13:27 | PCM.DC.ORTHO ---
Discharge Diet: No Restrictions Weight Bearing Status: Weight bearing as tolerated Call your doctor if you observe: Shortness of breath, Chest pain Additional Instructions: Begin daily showering warm water antibacterial soap postop day #3( 72hrs Post-operatively) and then daily. Leave the dressing on for 72 hours postoperatively then may remove prior to first shower and change dressing daily after this until no drainage for 2 consecutive days then may leave open to air. Follow hip precautions that were reviewed in hospital. Wear compression stockings, may remove at night. Start physical therapy as directed in hospital. Call Dr. Saba's office with any concerns. Allergies/Adverse Reactions: Allergies No Known Allergies Allergy (Verified 12/16/19 10:12) Medications to take at Discharge estradiol 0.1 mg/24 hr semiweekly transdermal patch 1 patch TRANSDERMAL ONCE 05/03/17 lidocaine 5 % topical patch 1 patch TOPICAL ONCE 05/03/17 meloxicam 15 mg tablet 15 mg PO QDAY 05/03/17 levothyroxine 75 mcg tablet 75 mcg PO DAILY #90 tab 05/15/19 gabapentin 300 mg capsule 300 mg PO PRN PRN 11/12/19 linaclotide 72 mcg capsule 72 mcg PO DAILY 12/08/19 Acetaminophen [Tylenol Arthritis] 1,300 mg PO TID 12/16/19 Cholecalciferol (Vitamin D3) [Vitamin D3] 25 mcg PO DAILY 12/16/19 Doxepin HCl 10 mg PO QHS 12/16/19 Folic Acid 0.4 mg PO DAILY@0800 12/16/19 Linacolotide [Linzess] 145 mcg PO DAILY 12/16/19 Loratadine [Allergy Relief] 10 mg PO DAILY 12/16/19 sulfamethoxazole 800 mg-trimethoprim 160 mg tablet 1 tab PO BID #10 tab 12/17/19 Acetaminophen [Tylenol Extra Strength] 1,000 mg PO Q6H PRN #100 tab 12/23/19 Apixaban [Eliquis] 2.5 mg PO BID #30 tab 12/23/19 Cephalexin [Keflex] 1,000 mg PO Q8 #4 cap 12/23/19 Oxycodone [Oxyir] 5 mg PO Q4H PRN PRN #60 tablet 12/23/19 The following prescriptions were given: Apixaban [Eliquis] 2.5 mg PO BID #30 tab Transmission Status: Pending to [facility] Cephalexin [Keflex] 1,000 mg PO Q8 #4 cap Transmission Status: Pending to [facility] Oxycodone [Oxyir] 5 mg PO Q4H PRN PRN #60 tablet PRN Reason: Pain Score 6-10/10 Transmission Status: Sent to [facility] Acetaminophen [Tylenol Extra Strength] 1,000 mg PO Q6H PRN #100 tab Transmission Status: Pending to [facility] Primary Care Physician: Anders Lundberg Chi, MD [Primary Care Provider] - Test Results: Test results from this visit will be discussed in further detail at your follow-up appointment, if applicable. Please Follow Up With: Sivakumar Saba DO - 2 weeks
--- NOTE | 2019-12-23 13:28 | OP.PCM_ITS ---
Report of Operation Date of Procedure: 12/23/19 Description of Surgical Findings:: Preoperative diagnosis: Left hip DJD Postoperative diagnosis: Same Procedure: CT-guided Makoplasty assisted left total hip arthroplasty Implants: Todd Accolade II stem size 3, 127 degree neck angle neutral neck length 48 mm Trident II acetabular shell with 35 mm cancellous screw 36 mm ceramic head posterior lipped linear Anesthesia: Spinal EBL: 175 cc Complications: None Condition: Stable to PACU Indication for procedure: This is a 69-year-old female who has had long-standing arthrosis of the hip who has failed conservative treatment and wished to undergo total hip arthroplasty. We did discuss operative versus nonoperative intervention including risks of bleeding, infection , nerve artery tissue damage, need for further surgery, fracture, leg length discrepancy dislocation blood clot and need for postoperative physical therapy and postoperative expectations. An informed consent was signed. Procedure: Patient was met in the preoperative holding area once again the operative extremity was identified by both patient and physician and was marked. Patient was met by anesthesia spinal anesthesia. patient was then positioned in the lateral decubitus position on a well-padded pegboard with an axillary roll. All bony prominences were checked and padded. The patient was prepped and draped in the usual sterile fashion. A timeout was called to ensure the proper patient procedure and extremity were being contemplated. Anatomic landmarks were palpated and marked for a standard posterior lateral approach. Prior to this the ASIS was palpated and 3 fingerbreadths proximal to this 3 pins were placed at a 45 degree angle into the iliac crest with good purchase, stab incisions were made with a 15 blade into the skin prior to placement. The Makoplasty array was then secured. A 10 blade scalpel was used to make a posterior incision through the skin and subcutaneous tissue. retractors were used and electrocautery was used to maintain meticulous hemostasis and dissect full-thickness flaps until the gluteal fascia was reached. The gluteal fascia was incised in line with the gluteal fibers. The bursal tissue was then freed from the underside and a Charnley retractor was placed. The femoral trochant west checkpoint was placed and leg length was assessed using the trochanteric checkpoint and an EKG lead that was placed on the knee prior to prepping the leg .the fat pad was then elevated off of the external rotators with electrocautery and the external rotators were dissected off of the greater trochanter including the piriformis and were tagged with #1 Ethibond for later repair. The joint cap valeriano opened with posterior trapdoor technique. The hip was surgically dislocated. The measurement on the preoperative CT from the top of the lesser trochanter to the femoral neck cut was marked Hohmann was placed around the lesser trochanter. A neck cutting guide was used to mark anthony the neck with a Bovie and an oscillating saw was used complete the femoral neck cut. The femoral head was then removed and sized. We then turned our attention to the acetabulum. A Bovie was used to make a perforation in the anterior joint capsule and a Mason retractor was placed this was repeated in the 6 o'clock position and a wide sparkle was placed there. With a long handled knife the labral and pulvinar tissue were removed. We then registered the acetabulum with the pointing array and confirmed our landmarks. Once the socket was thoroughly prepared and labral tissue pulmonary was removed we single reamed with the robotic arm. We then used the robotic arm to position the acetabular implant and impacted it into place under robotic guidance. We then proceeded to place a posterior superior screw by drilling first measuring and inserting the screw. We then inserted a trial liner. And turned our attention back to the femur at this point a femoral elevator was used. As well as a pointed wide Hohmann around the lesser trochanter and a Hohmann to help retract the gluteus medius. A box chisel was used to remove excess lateral neck followed by a canal finder and a lateralizing reamer. This was followed by sequential broaches. Attention was made of the version within the canal based on preoperative templating. Once the final broach was seated we then trialed reduced the hip it was determined that a 127 degree neck angle with a neutral neck length was the appropriate size. This resulted in a 2 mm longer than preop and 3 mm longer than contralateral leg, with a 2 mm decreased offset. we then checked stability with shuck testing as well as flexion and internal rotation. then proceeded with hip extension and checked leg lengths at the knees and heels as well as with the trochanteric checkpoint and knee EKG lead. At this point trials were removed. A liner was inserted to the cup. The femoral stem was inserted. We re-trialed and then proceeded to impact the femoral head onto the Zac taper. We then surgically reduce the hip check stability again and leg lengths and were satisfied. Betadine rinse was allowed to sit for 5 minutes while everyone changed their gloves. Thorough irrigation was performed. Followed by closure of the external rotators with #2 FiberWire followed by closure of gluteal fascia with #1 Ethibond. 0 Vicryl fat stitches and 2-0 Vicryl subcutaneous stitches and christiano in the skin. dressing was placed in the pin sites over the iliac crest with Xeroform 4 x 4 and OpSite. dressing was applied to incisional area with Mepilex Ag and an abduction pillow was placed. Patient tolerated the procedure well there was no intraoperative complications all counts were correct and the patient was brought back to the PACU in stable condition
--- NOTE | 2019-12-23 13:50 | SUR.PHASEI ---
4 skin tears in linear pattern observed on medial aspect of left lower leg. Measurement are as follows: proximal first skin tear [id number], second 1cmx 0.5cm, third 1cm x 1cm, and distal fourth skin tear 2.5cm x 1.5cm. Lance Park RN notified who then notified Dr. Saba. at bedside assessing skin tears, verbal dressing order given to Lance Park RN. Lance Byrne RN and Lance Park RN bedside applying dressing to left lower leg.
--- NOTE | 2019-12-23 13:50 | RAD_ITS ---
STUDY: X-RAY - PELVIS AND LEFT HIP REASON FOR EXAM: Female, 69 years old. POST OP LEFT HIP TECHNIQUE: 2 views of the pelvis and hip. COMPARISON: None. FINDINGS: The patient is status post left hip replacement. There is good alignment. Postoperative soft tissue changes. RAD/Hip Min 2 Views (Portable) IMPRESSION: Status post left total hip replacement. There is good alignment. Postoperative soft tissue changes. Electronically Signed: Matti Sevilla, at 14:55 EDT , Service support ,
[2019-12-23] MEDS: Lactated Ringers 1,000 ML 125 ML IV (14:55)
[2019-12-23] MEDS: Cefazolin 1 GM/50 ML BAG IV (15:45)
== END 2019-12-23 17:59 | disposition home or self-care (01) ==
LOC: SDC 07:33 → AC 07:34
PROVIDERS: Anesthesiology; PCP Family Medicine Geriatric Medicine; Referring Provider Orthopaedic Surgery; Visit Provider Orthopaedic Surgery
PROC: 8E0Y0CZ Robotic Assisted Procedure of Lower Extremity, Open Approach (ICD-10-PCS; CPT 27130; principal; 2019-12-23 11:00)
DX: M16.12 Unilateral primary osteoarthritis, left hip (principal); E06.9 Thyroiditis, unspecified; Z79.1 Long term (current) use of non-steroidal anti-inflammatories (NSAID); Z87.891 Personal history of nicotine dependence
CPT/HCPCS: 01214; 27130; 36415; 73502; 80048; 81001; 82962; 83735; 84443; 85025; 85610; 85730; 86850; 86900; 86901; 87081; 87635; 93005; 97162; C1713; C1776; C9803; J7120; J2405; J3475; U0003

== ENCOUNTER → 2020-01-12 16:15 | Outpatient (CLI) | payer MEDICARE, OTHER, SELFPAY ==
[2020-01-05 08:03] VITALS: BMI 21.2
--- NOTE | 2020-01-12 16:20 | CT_ITS ---
STUDY: CT ABDOMEN AND PELVIS WITHOUT CONTRAST REASON FOR EXAM: Female, 69 years old. RT FLANK PAIN RADIATION DOSAGE (If Supplied By Facility): CTDIvol = ( 6.21 ) mGy, DLP = ( 273.41 ) mGycm TECHNIQUE: Transaxial images were obtained from the dome of the diaphragm to the symphysis pubis without oral contrast, and without intravenous contrast. Sagittal and coronal images were reconstructed. Individualized dose optimization techniques were used for this CT. COMPARISON: 11/21/2019 FINDINGS: The visualized lung bases are unremarkable. The visualized portions of the heart are within normal limits. Probable 7 mm cyst in the right lobe of the liver. Normal gallbladder and extrahepatic biliary system. Normal spleen. Normal pancreas. Normal bilateral adrenal glands. Normal right kidney. Normal left kidney. Probable posterior diverticulum of the stomach. Normal small intestine. Normal colon. The appendix is nonvisualized. Normal abdominal aorta. Normal inferior vena cava. Normal retroperitoneum. Normal urinary bladder. Left hip prosthesis causing artifact limiting lower pelvic images. Normal abdominal wall. Normal osseous structures. CT/Abdomen/Pelvis without Cont IMPRESSION: Hepatic cyst. No renal stones or hydronephrosis. Electronically Signed: Lambert Rojas DO at 16:55 EDT Tel [phone], Service support ,
== END ==
PROVIDERS: PCP Family Medicine Geriatric Medicine; Referring Provider Family Medicine Geriatric Medicine; Visit Provider Family Medicine Geriatric Medicine
DX: N39.0 Urinary tract infection, site not specified (principal); R10.30 Lower abdominal pain, unspecified
CPT/HCPCS: 74176; 87086; 87088

== ENCOUNTER 2020-03-01 16:30 | Outpatient (RCR) | payer MEDICARE, OTHER, SELFPAY ==
[2019-12-08 16:22] VITALS: BMI 19.8
--- NOTE | 2019-12-22 11:03 | STRESSREP ---
Stress Test Report Exercise myocardial perfusion stress test. 69-year-old lady with a history of chest pain. Stress protocol: Resting EKG demonstrates normal sinus rhythm with a rate of 61 bpm resting blood pressure is 138/62 mmHg. The patient exercised according to the regular Juan Jose protocol for a total duration of 6 minutes and 21 seconds. The maximum heart rate attained was 160 bpm which was 105% of max impacted heart rate the maximum workload was 7.5 metabolic equivalents. At rest there were no ST or T wave changes noted to suggest ischemia at peak exercise upsloping ST changes only were noted with no meet the criteria for ischemia no clinical angina was noted the test was terminated due to shortness of breath and attainment of target heart rate. The peak blood pressure was 162/80 mmHg with a normal response to exercise. Myocardial perfusion protocol. 12.0 mCi of technetium 99m sestamibi was injected at rest. The patient exercised according to regular Juan Joes protocol. At peak exercise 34.0 mCi of technetium 99m sestamibi was injected stress images were obtained stress and rest images were reconstructed and compared in the short axis vertical long horizontal long axis. Gated images were also obtained. Perfusion SPECT analysis: Review of the stress images demonstrate normal uptake of tracer noted in all areas of the myocardium. The resting images similar demonstrate normal uptake of tracer noted in all areas of the myocardium. No reversibility is noted to suggest ischemia no previous infarct is noted. Gated SPECT analysis: The gated ejection fraction is 74%. Conclusion: Normal exercise myocardial perfusion stress test. Preserved ejection fraction. No clinical angina noted.
[2019-12-23 09:50] VITALS: BMI 21.2
--- NOTE | 2019-12-25 13:37 | HP.PTEVAL_ITS ---
Patient's Visit Information TANYA RODRIGUEZ is a 69 year old F referred to Physical Therapy by Dr. Sivakumar Saba DO with a diagnosis of Left THR. Date of Evaluation: 12/25/19 Physical Therapist: Lindsay Darden DPT - Visit Plan Frequency: 3x /Week Duration: 4 Weeks Plan: Left THR posterior approach 12/23/2019- focus on LE and core strength/stabilization with functional mobility - Subjective Left THR on Sunday12/23/2019- and went home that night. Single story home with 4-5 stairs with a handrail on both side to get inside then ranch style- her helps her up/down the stairs. helps at home. Fully I prior to surgical intervention- goals are to get back to doing all of those things and work. Work: [employer]- works at home on the [employer]. Not currently working plans to go back the but if she feels she can go back earlier she will. She reports pain along the incision and posterior hip and down into the groin- radiates to the back of the knee but no further. No N/T in the LE. Describes the pain as sharp/shooting and dull and achy. Sleep: in her bed- disturbed- has pillows propping her up- once she is comfortable she is better. Worst: 07/17 Agg: trying to get in/out of car or bed. Eases: sitting or taking a nap Best: 10. No currently driving. Was not using a cane or walker prior to surgery- is now using a FWW. Does have a railing and raised toilet seat in her home. PMHx/Meds: is now taking Gabapentin - Objective Posture: FH, RS- can correct but does not maintain. Gait: antalgic- FWW- decreased stance on the left LE with poor heel/toe pattern with step to gait. HR/TR: able with UE A. SLS: weight shift but reports fear and discomfort. Palpation: tender along greater troch and into the gluts. Observation: incision still covered by bandage- no increased redness or concerns for infection. ROM: Hip: flexion: 90 degrees (stopped due to precautions), Abd: 40 degrees, IR/ER: not tested, Add: neutral, extn: 10 degrees, knee/ankle: WNL. Strength:ankle: 5/5, Knee: 4+/5, Hip: SLR: max - quad set is visible Abd/Add: moderate assistance Core: fair. Stairs: non recip - Goals Goal 1:: Patient will be I with HEP and progression Goal Time Frame: 4-6 Weeks Goal 2:: Patient will ambulate >300 feet with a normalized gait pattern and LRD Goal Time Frame: 4-6 Weeks Goal 3:: Patient will asc/desc 8 stairs recip with 1 HR Goal Time Frame: 4-6 Weeks Goal 4:: Patient will return to all normal ADL's. Goal Time Frame: 4-6 Weeks - Rehabilitation Potential Physical Therapy Diagnosis: Patient presents with hypomobility- she has decreased ROM,strength, flex and muscular endurance leading to abnormal gait and increased pain with ADL's. Rehabilitation Potential: Good - Anticipated Interventions Patient/Client Instruction: Educate patient on: Benefits of Fitness Program Therapeutic Exercise to Include: Strength training, Endurance training, Balance training, Agility training, Body mechanics, Postural training, Flexibilty training, Gait and locomotor training, Neuromotor development, Passive ROM, Active ROM, Dynamic Lumbar Stabilization, Scapular Strength/Stabilization For the Purpose of:: To improve muscle performance and motor function TENS: Yes Cryotherapy (ice pack, ice massage): Yes Thermo therapy (hot pack): Yes Ultrasound (thermal/non thermal): No Thank you for the opportunity to evaluate your patient. For Medicare and Medicare HMO plans, please review the plan of care and approve it. It will need to be FAXED BACK to us at [phone] for Medicare purposes. For Medicare only, by signing this I certify the plan of care. Please let me know if there are questions or concerns regarding this plan of care. Physician Signature: Date:
--- NOTE | 2020-02-04 17:27 | HP.PTREVAL ---
Dr. Sivakumar Saba, DO, It has been my pleasure to treat TANYA RODRIGUEZ over the last 9 visits for Left THR. Please see the progress note below for an update on the physical therapy plan of care! Subjective: Patient reports that she still has the groin pain thats not getting better- its dull most of the time and then it can get sharp. Nothin specific aggravates it but it will just wake her up- it takes about a half hour to get back to sleep. Has had tests for kidney stones, bladder infections, etc. Functionally she is getting around okay- she can't drive. Objective/Function: Posture: FH, RS- can correct but does not maintain. Gait: slightly antalgic- carries SC but does not use it. HR/TR: able with UE A. SLS: 10 seconds Palpation: tender along greater troch and into the gluts. ROM: Hip: flexion: 90 degrees (stopped due to precautions), Abd: 60 degrees, IR/ER: not tested, Add: neutral, extn: 10 degrees, knee/ankle: WNL. Strength:ankle: 5/5, Knee: 5/5, Hip: SLR: no lag Abd/Add: 4/5 Core: fair. Stairs: recip with 1 HR Plan Plan: Continue 2x a week for 4 weeks- stretch and strength with functional mobility- Goals Goal 1:: Patient will be I with HEP and progression Goal Time Frame: 4-6 Weeks Goal 2:: Patient will ambulate >300 feet with a normalized gait pattern and LRD Goal Time Frame: 4-6 Weeks Goal 3:: Patient will asc/desc 8 stairs recip with 1 HR Goal Time Frame: 4-6 Weeks Goal 4:: Patient will return to all normal ADL's. Goal Time Frame: 4-6 Weeks Anticipated Interventions Patient/Client Instruction: Educate patient on: Benefits of Fitness Program Therapeutic Exercise to Include: Strength training, Endurance training, Balance training, Agility training, Body mechanics, Postural training, Flexibilty training, Gait and locomotor training, Neuromotor development, Passive ROM, Active ROM, Dynamic Lumbar Stabilization, Scapular Strength/Stabilization For the Purpose of:: To improve muscle performance and motor function TENS: Yes Cryotherapy (ice pack, ice massage): Yes Thermo therapy (hot pack): Yes Ultrasound (thermal/non thermal): No Please do not hesitate to contact me at [phone] by phone or if you have questions or concerns regarding this new plan of care! Sincerely, DOMINIK DashT
--- NOTE | 2020-03-01 18:34 | HP.PTDCSUM ---
It has been my pleasure to treat TANYA RODRIGUEZ referred by Dr. Sivakumar Saba DO, with the diagnosis of Left THR for a total of 13 visit(s). Discharge Date: 03/01/20 Please see the following information for a summary of their discharge status. Subjective: PATIENT REPORTS SHE CAN'T KNEEL DOWN OR GET UNDER THE BED. STATES SHE IS GETTING DONE WHAT SHE NEEDS TO DO AND SHE ISN'T WORRIED ABOUT IT. PATIENT REPORTS SHE HAS ANOTHER BEKAH'T COMING UP WITH DR. SABA THE BEGINNING OF MARCH. PATIENT REPORTS FALLING IN THE HOT TUB GALILEA HER AND SET HER BACK. SHE REPORTS SHE ACTUALLY JUST SLIPPED SHE DIDN'T FALL. WALKING WITHOUT AD IN THE HOUSE AND USING CANE OUT OF THE HOUSE. PATIENT REPORTS DR. SABA WANTS HER TO CONTINUE TO AVOID BENDING, TWISTING AND CROSSING LEGS. PATIENT REPORTS SHE FEELS READY TO STOP THERAPY IF WE ARE IN AGREEMENT. Left hip Pain Intensity (Out of 10): 2 % Improvement: 65 Objective/Function: PATIENT WAS SEEN TODAY FOR RE-ASSESSMENT OF PROGRESS TOWARD THE SET PT GOALS AND THE NEED FOR FURTHER PHYSICAL THERAPY VS READINESS FOR DISCHARGE. PATIENT HAS MADE GOOD PROGRESS TOWARD ALL PT GOALS AND IS APPROPRIATE FOR DISCHARGE. UPON EXAM TODAY: PATIENT IS ABLE TO AMBULATE INDEP'LY WITHOUT AD WITH NORMALIZED GAIT PATTERN. SLS: 10+ seconds renata. Her incision looks good without any signs of infection. Observed pain patch on front of Left hip and patient reports she is continuing to use them as needed and her surgeon is aware. ROM: Hip: flexion: 90 degrees (stopped due to precautions), Abd: ~60 degrees, IR/ER: not tested, Add: neutral, extn: 10 degrees, knee/ankle: WNL. Strength:ankle: 5/5, Knee: 5/5, Hip: SLR: no lag Abd/Add: 4/5 Core: fair. Goal 1:: Patient will be I with HEP and progression Goal Progress: Goal Met Goal 2:: Patient will ambulate >300 feet with a normalized gait pattern and LRD Goal Progress: Goal Met Goal 3:: Patient will asc/desc 8 stairs recip with 1 HR Goal Progress: Goal Met Goal 4:: Patient will return to all normal ADL's. Goal Progress: Progressing Plan: D/C. PATIENT AGREEABLE. If there are questions or concerns regarding this patient's physical therapy, please feel free to call me at [phone]. Thank you for the referral of this patient. Sincerely, Ally Jarquin PT, Cert MDT
== END 2020-03-01 19:00 | disposition home or self-care (01) ==
LOC: PT 16:30
PROVIDERS: PCP Family Medicine Geriatric Medicine; Referring Provider Orthopaedic Surgery; Visit Provider Orthopaedic Surgery
DX: Z47.1 Aftercare following joint replacement surgery (principal)
CPT/HCPCS: 97110; 97162; 97164

== ENCOUNTER → 2020-03-17 14:16 | Outpatient (CLI) | payer MEDICARE, OTHER, SELFPAY ==
[2020-03-17 17:02] LABS: Absolute Lymphocyte Count 1.74 X10^3/uL (0.83-4.51); Absolute Neutrophil Count 5.2 X10^3/uL (2.0-7.7); Basophil# 0.03 X10^3/uL; Basophil% 0.4 % (0-1); Eosinophil# 0.03 X10^3/uL; Eosinophils% 0.4 % (0-5); Hematocrit 39.1 % (37-47); Hemoglobin 12.7 g/dL (12.0-15.0); Lymphocyte # 1.74 X10^3/ul (4.0); Lymphocyte % 22.3 % (19-41); Mean Corp Hgb Conc 32.5 g/dL (32-36); Mean Corpuscular Hgb 32.3 pg (27.0-32.0); Mean Corpuscular Volume 99.5 fL (81-99); Mean Platelet Vol. 9.5 fl (6.2-12.0); Monocyte# 0.75 X10^3/uL; Monocyte% 9.6 % (0-10); NRBC Flagged by Analyzer 0 % (0-5); Neutrophil # 5.24 X10^3/uL (2.7-7.7); Platelet Count 355 K/mm3 (150-450); RBC Distribution Width CV 11.3 % (11.6-14.6); RBC Distribution Width SD 41.7 fl (35.1-43.9); Red Blood Count 3.93 M/mm3 (4.2-5.4); White Blood Count 7.8 K/mm3 (4.4-11.0)
[2020-03-17 17:43] LABS: Vitamin D,25 Hydroxy 29.8 ng/mL
[2020-03-17 17:45] LABS: ALB/GLOB Ratio 1.2 RATIO (0.9-2.4); AST(SGOT) 16 U/L (15-37); Alanine Aminotransfer ALT/SGPT 18 U/L (13-56); Albumin, Serum 3.8 g/dL (3.2-5.0); Alkaline Phosphatase 64 U/L (45-117); Anion Gap 6 (5-15); BUN 15 mg/dL (7-18); BUN/Creat Ratio 22.4 RATIO (10-20); Calcium,Total 8.5 mg/dL (8.5-10.1); Chloride 104 mmol/L (98-107); Creatinine, Serum 0.67 mg/dL (0.55-1.02); EST Glomerular Filtration Rate 93 mL/min (>60); Est Glom Filt Rate - Afr Amer 112 mL/min (>60); Globulin 3.1 g/dL (2.2-4.2); Glucose 91 mg/dL (74-106); Potassium 3.9 mmol/L (3.5-5.1); Protein, Total 6.9 g/dL (6.4-8.2); Sodium Level 138 mmol/L (136-145); Thyroid Stim Hormone (TSH) 1.59 uIU/mL (0.358-3.74)
== END ==
PROVIDERS: PCP Family Medicine Geriatric Medicine; Visit Provider Family Medicine Geriatric Medicine
DX: R53.83 Other fatigue (principal); E55.9 Vitamin D deficiency, unspecified
CPT/HCPCS: 36415; 80053; 82306; 84443; 85025

== ENCOUNTER → 2020-05-26 17:19 | Outpatient (CLI) | payer MEDICARE, OTHER, SELFPAY ==
--- NOTE | 2020-05-26 17:38 | RAD_ITS ---
STUDY: X-RAY - PELVIS AND LEFT HIP REASON FOR EXAM: Female, 70 years old. LEFT HIP PAIN. SURGERY 2019 ON LEFT HIP TECHNIQUE: 3 views of the pelvis and hip. COMPARISON: None. FINDINGS: Status post left hip arthroplasty. No evidence of acute hardware failure or loosening. No acute fracture or dislocation. Degenerative changes of the right hip RAD/HIP, UNI W/ Pelvis 2-3 Views IMPRESSION: As above Electronically Signed: Shiv Jamison DO at 4:49 EST Tel , Service support ,
--- NOTE | 2020-05-26 17:38 | RAD_ITS ---
STUDY: X-RAY - LUMBAR SPINE REASON FOR EXAM: Female, 70 years old. LOW BACK PAIN. NO KNOWN RECENT INJURY TECHNIQUE: 3 view(s) of the lumbar spine were obtained. COMPARISON: None FINDINGS: Normal lumbar lordosis. There is a dextroscoliosis of the lumbar spine. There is a normal alignment of the vertebrae. There is multilevel endplate spondylosis of the lumbar vertebrae. There is multi-level degenerative disc disease with multi-level disc space narrowing. There is no demonstrated fracture. The soft tissue structures are unremarkable. RAD/Lumbar Spine 2 or 3 Views IMPRESSION: Degenerative changes of the spine, as detailed above. Electronically Signed: Shiv Jamison DO at 4:42 EST Tel , Service support ,
== END ==
PROVIDERS: PCP Family Medicine Geriatric Medicine; Visit Provider Family Medicine Geriatric Medicine
DX: M54.5 Low back pain (principal); M25.559 Pain in unspecified hip
CPT/HCPCS: 72100; 73502

== ENCOUNTER 2020-06-07 16:25 | Outpatient (RCR) | payer MEDICARE, OTHER, SELFPAY | END 2020-06-07 23:59 | LOC: IMMUN 16:25 | PROVIDERS: PCP Family Medicine Geriatric Medicine; Referring Provider Family Medicine; Visit Provider Family Medicine | DX: Z23 Encounter for immunization (principal) | CPT/HCPCS: 0011A; 0012A ==

== ENCOUNTER → 2020-06-09 15:43 | Outpatient (CLI) | payer MEDICARE, OTHER, SELFPAY ==
[2019-12-23 09:50] VITALS: BMI 21.2
--- NOTE | 2020-06-09 15:48 | MRI_ITS ---
STUDY: MRI LUMBAR SPINE WITHOUT CONTRAST REASON FOR EXAM: Female, 70 years old. LUMBAR RADICULOPATHY TECHNIQUE: Standardized fat and water weighted pulse sequences were obtained in the sagittal and axial planes. COMPARISON: 11/07/2019 FINDINGS: There is a transitional morphology. Levels numbering is uncertain. Confirmation of Lumbar numbering before surgical intervention is recommended. For the purposes of counting on this examination and in keeping with the prior examination, there is assumed sacralized L5 vertebral body Normal lumbar lordosis. There is mild scoliosis Normal conus medullaris that terminates at the L2. L1-2: There is moderate disc space narrowing and endplates spondylosis. Mild disc bulge asymmetric to the left with mild left lateral recess and foraminal stenosis. No significant central canal or right foraminal stenosis. Findings are stable since the prior examination L2-3: There is mild disc space narrowing and endplates spondylosis. Mild disc bulge without significant central canal or foraminal stenosis. L3-4: There is mild disc space narrowing and endplates spondylosis. Mild disc bulge and moderate facet arthropathy with mild central canal stenosis. Mild right and mild left foraminal stenosis. There is minimal anterolisthesis. Findings are stable since prior examination L4-5: There is minimal disc space narrowing and endplates spondylosis. Moderate facet arthropathy findings are stable since the prior examination L5-S1: There is minimal disc space narrowing and endplate spondylosis. There is no significant disc herniation, central canal or foraminal stenosis. Status post laminectomy and Posterolateral fusion. Findings are stable prior examination. Normal visualized sacral ala. MRI/Spine Lumbar (Routine) IMPRESSION: Transitional morphology. Stable multilevel degenerative changes. Electronically Signed: Victor Manuel Lowery MD at 13:51 EST Tel , Service support ,
== END ==
PROVIDERS: PCP Family Medicine Geriatric Medicine; Referring Provider Family Medicine Geriatric Medicine; Visit Provider Family Medicine Geriatric Medicine
DX: M54.18 Radiculopathy, sacral and sacrococcygeal region (principal)
CPT/HCPCS: 72148

== ENCOUNTER → 2020-07-16 11:29 | Outpatient (CLI) | payer MEDICARE, OTHER, SELFPAY ==
[2020-06-22 16:11] VITALS: BMI 22.0
== END ==
PROVIDERS: PCP Family Medicine Geriatric Medicine; Visit Provider Family Medicine Geriatric Medicine
DX: N39.0 Urinary tract infection, site not specified (principal)
CPT/HCPCS: 87077; 87086; 87088; 87186

== ENCOUNTER → 2020-08-19 16:25 | Outpatient (CLI) | payer MEDICARE, OTHER, SELFPAY ==
[2020-06-22 16:11] VITALS: BMI 22.0
[2020-08-19 17:34] LABS: Absolute Lymphocyte Count 1.39 X10^3/uL (0.83-4.51); Absolute Neutrophil Count 4.7 X10^3/uL (2.0-7.7); Basophil# 0.03 X10^3/uL; Basophil% 0.4 % (0-1); Eosinophil# 0.01 X10^3/uL; Eosinophils% 0.1 % (0-5); Hematocrit 38.6 % (37-47); Hemoglobin 12.3 g/dL (12.0-15.0); Lymphocyte # 1.39 X10^3/ul (0.83-4.51); Lymphocyte % 20.5 % (19-41); Mean Corp Hgb Conc 31.9 g/dL (32-36); Mean Corpuscular Hgb 31.1 pg (27.0-32.0); Mean Corpuscular Volume 97.5 fL (81-99); Mean Platelet Vol. 8.7 fl (6.2-12.0); Monocyte% 8.9 % (0-10); NRBC Flagged by Analyzer 0 % (0-5); Neutrophil % 69.5 % (47-70); Platelet Count 369 K/mm3 (150-450); RBC Distribution Width SD 46.5 fl (35.1-43.9); Red Blood Count 3.96 M/mm3 (4.2-5.4); White Blood Count 6.8 K/mm3 (4.4-11.0)
[2020-08-19 17:45] LABS: Vitamin D,25 Hydroxy 34.9 ng/mL
[2020-08-19 17:51] LABS: ALB/GLOB Ratio 1.1 RATIO (0.9-2.4); AST(SGOT) 13 U/L (15-37); Alanine Aminotransfer ALT/SGPT 19 U/L (13-56); Albumin, Serum 3.6 g/dL (3.2-5.0); Alkaline Phosphatase 49 U/L (45-117); Anion Gap 5 (5-15); BUN 11 mg/dL (7-18); BUN/Creat Ratio 13.4 RATIO (10-20); Calcium,Total 8.5 mg/dL (8.5-10.1); Chloride 100 mmol/L (98-107); Creatinine, Serum 0.82 mg/dL (0.55-1.02); EST Glomerular Filtration Rate 74 mL/min (>60); Est Glom Filt Rate - Afr Amer 89 mL/min (>60); Globulin 3.4 g/dL (2.2-4.2); Glucose 98 mg/dL (74-106); Potassium 3.5 mmol/L (3.5-5.1); Sodium Level 134 mmol/L (136-145); Thyroid Stim Hormone (TSH) 0.83 uIU/mL (0.358-3.74)
== END ==
PROVIDERS: PCP Family Medicine Geriatric Medicine; Visit Provider Family Medicine Geriatric Medicine
DX: E55.9 Vitamin D deficiency, unspecified (principal); R53.83 Other fatigue; I10 Essential (primary) hypertension
CPT/HCPCS: 36415; 80053; 82306; 84443; 85025

== ENCOUNTER → 2020-10-12 16:22 | Outpatient (CLI) | payer MEDICARE, OTHER, SELFPAY ==
[2020-06-22 16:11] VITALS: BMI 22.0
--- NOTE | 2020-10-12 16:24 | BI_ITS ---
MAMMOGRAPHY - BILATERAL SCREENING REASON FOR EXAM: Female, 70 years old. Routine annual screening examination. PERTINENT HISTORY: Aunt with breast cancer. TECHNIQUE: Digital bilateral breast kacie (3D mammographic acquisition) in the CC and MLO projections. 2-D mediolateral oblique (MLO) and craniocaudad (CC) views of both breasts were obtained. CAD: Full Field Digital Mammography with Computer Added Detection was performed. COMPARISON: Comparison is made with prior study dated 12/30/2018 and 12/26/2017. FINDINGS: Breast Composition: The breasts are heterogeneously dense, which may obscure small masses. There are no dominant masses or suspicious calcifications. No other significant abnormalities are identified. There has been no significant change since the prior study. BI/SCRN MAMM (CAD)W/KACIE BILAT IMPRESSION: Stable bilateral screening mammogram. Yearly follow-up mammogram recommended. (A) ASSESSMENT CATEGORY: BIRADS Category 1: Negative. A letter regarding these results will be sent to the patient by the facility within 30 days. Approximately 10% of breast cancers are not detected by mammography. A normal mammogram should not delay biopsy of a clinically suspicious abnormality. [id number] Electronically Signed: Matti Sevilla MD at 8:03 EDT , Service support ,
== END ==
PROVIDERS: PCP Family Medicine Geriatric Medicine; Referring Provider Family Medicine Geriatric Medicine; Visit Provider Family Medicine Geriatric Medicine
DX: Z12.31 Encounter for screening mammogram for malignant neoplasm of breast (principal)
CPT/HCPCS: 77063; 77067

== ENCOUNTER 2020-12-09 16:00 | Outpatient (RCR) | payer MEDICARE, OTHER, SELFPAY ==
[2020-06-22 16:11] VITALS: BMI 22.0
--- NOTE | 2020-08-30 16:51 | HP.PTEVAL ---
Patient's Visit Information TANYA RODRIGUEZ is a 70 year old F referred to Physical Therapy by Dr. Anders Lundberg MD with a diagnosis of LBP. Date of Evaluation: 08/30/20 Physical Therapist: Ethan Bernal, PT, ATC - Visit Plan Frequency: 2-3x /Week Duration: 4 Weeks Plan: core stab ex's, L LE stregnthening, balance and proprio, nustep, and HEP - Subjective Pt reports she has had LBP and L hip pain for greater than 9 months. Pt reports she had a very degenerative L hip and notes she had to have it replaced. Pt reports that is about when she began to notice some LBP. Pt reports she has had L4-5 fusion in the past. Pt notes recent xrays revealed DDD in the L/S. Pt reports L LE pain that extends into her groin and down her L LE to the knee. Pt reports sleep difficulty even with taking meds to aid her sleep. Pt reports prolonged standing, sitting, and walking all increase her pain. Pt reports after she exercises, her pain does feel better overall. 2/10 pain at rest, 4/10 at worst (when she is attempting to sleep. - Pain LBP Pain Intensity (Out of 10): 2 Pain Intensity Range: 4 - Objective Neuro: B LE sensation is WNL to light touch. B patellar reflex= 2/3. MMT: R LE is grossly 5/5 throughout while L LE is grossly 4/5 throughout. ROM: L/S ext is moderately limited. All other planes are WFL. Repeated movements: RFIS 10x2 had NE. MELO 10x2 NE. Ambulation: Pt is able to ambulate greater than 700' without difficulty. No difficulty with stairs. - Goals Goal 1:: Decrease LBP x 50% to aid with sleep Goal Time Frame: 4-6 Weeks Goal 2:: Increase L LE strength x 1 grade to aid with walking up inclines Goal Time Frame: 4-6 Weeks Goal 3:: I with HEP Goal Time Frame: 4-6 Weeks - Rehabilitation Potential Physical Therapy Diagnosis: Pt has L LE weakness, LBP, and limited L/S ROM secondary to degenerative changes in the L/S Rehabilitation Potential: Good - Anticipated Interventions Patient/Client Instruction: Educate patient on: Condition, Plan of Care For the Purpose of:: To improve self management Therapeutic Exercise to Include: Strength training, Balance training, Flexibilty training, Dynamic Lumbar Stabilization For the Purpose of:: To decrease pain, To increase ROM, To improve muscle performance and motor function Thank you for the opportunity to evaluate your patient. For Medicare and Medicare HMO plans, please review the plan of care and approve it. It will need to be FAXED BACK to us at [phone] for Medicare purposes. For Medicare only, by signing this I certify the plan of care. Please let me know if there are questions or concerns regarding this plan of care. Physician Signature: Date:
--- NOTE | 2020-11-09 16:16 | HP.PTREVAL ---
Dr. Anders Lundberg MD, It has been my pleasure to treat TANYA RODRIGUEZ over the last 16 visits for LBP. Please see the progress note below for an update on the physical therapy plan of care! Subjective: Pt reports no pain this date. Objective/Function: LBP ranges at 0-5/10 at this time. Pt still has difficulty with sleep at this time secondary to pain. L LE MMT 4/5 throughout. Pt is I with HEP. Pt is progressing well toward Rx goals but would benefit from further skilled PT Plan Plan: Cont with POC Balance/Gait/Functional tests - Balance/Special Test Scores Oswestry Low Back Score: 14 Goals Goal 1:: Decrease LBP x 50% to aid with sleep Goal Time Frame: 4-6 Weeks Goal Progress: Progressing Goal 2:: Increase L LE strength x 1 grade to aid with walking up inclines Goal Time Frame: 4-6 Weeks Goal Progress: Progressing Goal 3:: I with HEP Goal Time Frame: 4-6 Weeks Goal Progress: Goal Met Anticipated Interventions Patient/Client Instruction: Educate patient on: Condition, Plan of Care For the Purpose of:: To improve self management Therapeutic Exercise to Include: Strength training, Balance training, Flexibilty training, Dynamic Lumbar Stabilization For the Purpose of:: To decrease pain, To increase ROM, To improve muscle performance and motor function Please do not hesitate to contact me at [phone] by phone or if you have questions or concerns regarding this new plan of care! Sincerely, Ethan Bernal, PT, ATC
--- NOTE | 2020-12-09 16:27 | HP.PTDCSUM ---
It has been my pleasure to treat TANYA RODRIGUEZ referred by Dr. Anders Lundberg MD, with the diagnosis of LBP for a total of 24 visit(s). Discharge Date: Please see the following information for a summary of their discharge status. Subjective: Pt reports no pain this date. Notes she feels ready for discharge LBP Pain Intensity (Out of 10): 0 % Improvement: 85 Objective/Function: Pt reports LBP 0/10 currently, still increases to 2/10 on occasions. L LE MMT: 4/5 throughout with exception to knee ext= 5/5. Pt is I with HEP. Rx goals achieved Goal 1:: Decrease LBP x 50% to aid with sleep Goal Progress: Goal Met Goal 2:: Increase L LE strength x 1 grade to aid with walking up inclines Goal Progress: Progressing Goal 3:: I with HEP Goal Progress: Goal Met Plan: Discharge If there are questions or concerns regarding this patient's physical therapy, please feel free to call me at [phone]. Thank you for the referral of this patient. Sincerely, Ethan Bernal, PT, ATC Balance/Gait/Functional tests - Balance/Special Test Scores Oswestry Low Back Score: 5
== END 2020-12-09 19:00 | disposition home or self-care (01) ==
LOC: PT 16:00
PROVIDERS: PCP Family Medicine Geriatric Medicine; Referring Provider Family Medicine Geriatric Medicine; Visit Provider Family Medicine Geriatric Medicine
DX: M54.5 Low back pain (principal)
CPT/HCPCS: 97110; 97161; 97164

== ENCOUNTER → 2021-02-23 16:15 | Outpatient (CLI) | payer MEDICARE, OTHER, SELFPAY ==
[2021-02-23 17:15] LABS: Absolute Lymphocyte Count 1.32 X10^3/uL (0.83-4.51); Absolute Neutrophil Count 3.3 X10^3/uL (2.0-7.7); Basophil# 0.02 X10^3/uL; Basophil% 0.4 % (0-1); Eosinophil# 0.01 X10^3/uL; Eosinophils% 0.2 % (0-5); Hematocrit 39.2 % (37-47); Hemoglobin 13.1 g/dL (12.0-15.0); Lymphocyte # 1.32 X10^3/ul (0.83-4.51); Lymphocyte % 25.3 % (19-41); Mean Corp Hgb Conc 33.4 g/dL (32-36); Mean Corpuscular Hgb 32.3 pg (27.0-32.0); Mean Corpuscular Volume 96.6 fL (81-99); Monocyte# 0.58 X10^3/uL; Monocyte% 11.1 % (0-10); NRBC Flagged by Analyzer 0 % (0-5); Neutrophil # 3.28 X10^3/uL (2.7-7.7); Neutrophil % 62.8 % (47-70); Platelet Count 332 K/mm3 (150-450); RBC Distribution Width CV 11.4 % (11.6-14.6); RBC Distribution Width SD 40.7 fl (35.1-43.9); Red Blood Count 4.06 M/mm3 (4.2-5.4); White Blood Count 5.2 K/mm3 (4.4-11.0)
[2021-02-23 17:52] LABS: ALB/GLOB Ratio 1.2 RATIO (0.9-2.4); AST(SGOT) 14 U/L (15-37); Alanine Aminotransfer ALT/SGPT 20 U/L (13-56); Albumin, Serum 3.9 g/dL (3.2-5.0); Alkaline Phosphatase 49 U/L (45-117); Anion Gap 5 (5-15); BUN 9 mg/dL (7-18); BUN/Creat Ratio 12.8 RATIO (10-20); Calcium,Total 8.8 mg/dL (8.5-10.1); Chloride 102 mmol/L (98-107); EST Glomerular Filtration Rate 87 mL/min (>60); Est Glom Filt Rate - Afr Amer 106 mL/min (>60); Globulin 3.3 g/dL (2.2-4.2); Glucose 95 mg/dL (74-106); Potassium 4.3 mmol/L (3.5-5.1); Protein, Total 7.2 g/dL (6.4-8.2); Sodium Level 134 mmol/L (136-145); Thyroid Stim Hormone (TSH) 1.21 uIU/mL (0.358-3.74)
[2021-02-23 18:29] LABS: Vitamin D,25 Hydroxy 37.6 ng/mL
== END ==
PROVIDERS: PCP Family Medicine Geriatric Medicine; Visit Provider Family Medicine Geriatric Medicine
DX: E55.9 Vitamin D deficiency, unspecified (principal); R53.83 Other fatigue
CPT/HCPCS: 36415; 80053; 82306; 84443; 85025

== ENCOUNTER → 2021-08-23 | Outpatient (CLI) | payer MEDICARE, OTHER, SELFPAY ==
[2021-08-23 17:46] LABS: Absolute Lymphocyte Count 1.59 X10^3/uL (0.83-4.51); Absolute Neutrophil Count 3.9 X10^3/uL (2.0-7.7); Basophil# 0.02 X10^3/uL; Basophil% 0.3 % (0-1); Eosinophil# 0.02 X10^3/uL; Eosinophils% 0.3 % (0-5); Hematocrit 40.7 % (37-47); Hemoglobin 13.8 g/dL (12.0-15.0); Lymphocyte # 1.59 X10^3/ul (0.83-4.51); Lymphocyte % 25.7 % (19-41); Mean Corp Hgb Conc 33.9 g/dL (32-36); Mean Corpuscular Hgb 32.9 pg (27.0-32.0); Mean Corpuscular Volume 97.1 fL (81-99); Mean Platelet Vol. 10.7 fl (6.2-12.0); Monocyte# 0.62 X10^3/uL; NRBC Flagged by Analyzer 0 % (0-5); Neutrophil # 3.93 X10^3/uL (2.7-7.7); Neutrophil % 63.5 % (47-70); POSITIVE COUNT YES; Platelet Count 220 K/mm3 (150-450); RBC Distribution Width CV 11.6 % (11.6-14.6); RBC Distribution Width SD 41.3 fl (35.1-43.9); Red Blood Count 4.19 M/mm3 (4.2-5.4); White Blood Count 6.2 K/mm3 (4.4-11.0)
[2021-08-23 17:52] LABS: Differential Indicated SCAN CRITERIA MET
[2021-08-23 18:29] LABS: Differential Comment SCANNED
[2021-08-23 18:32] LABS: Vitamin D,25 Hydroxy 58.2 ng/mL
[2021-08-23 18:39] LABS: ALB/GLOB Ratio 1.3 RATIO (0.9-2.4); AST(SGOT) 27 U/L (15-37); Alanine Aminotransfer ALT/SGPT 22 U/L (13-56); Albumin, Serum 4.2 g/dL (3.2-5.0); Alkaline Phosphatase 60 U/L (45-117); Anion Gap 9 (5-15); BUN 9 mg/dL (7-18); BUN/Creat Ratio 15.2 RATIO (10-20); Calcium,Total 9.1 mg/dL (8.5-10.1); Chloride 97 mmol/L (98-107); Creatinine, Serum 0.59 mg/dL (0.55-1.02); EST Glomerular Filtration Rate 107 mL/min (>60); Est Glom Filt Rate - Afr Amer 129 mL/min (>60); Globulin 3.3 g/dL (2.2-4.2); Glucose 82 mg/dL (74-106); Potassium 4.1 mmol/L (3.5-5.1); Protein, Total 7.5 g/dL (6.4-8.2); Sodium Level 133 mmol/L (136-145); Thyroid Stim Hormone (TSH) 1.17 uIU/mL (0.358-3.74)
== END | disposition home or self-care (01) ==
LOC: POLAB3 15:52
PROVIDERS: PCP Family Medicine Geriatric Medicine; Visit Provider Family Medicine Geriatric Medicine
DX: E55.9 Vitamin D deficiency, unspecified (principal); R53.83 Other fatigue
CPT/HCPCS: 36415; 80053; 82306; 84443; 85025

== ENCOUNTER → 2021-12-05 | Outpatient (CLI) | payer MEDICARE, OTHER, SELFPAY ==
--- NOTE | 2021-12-05 16:35 | RAD_ITS ---
STUDY: X-RAY - PELVIS AND RIGHT HIP REASON FOR EXAM: Female, 71 years old. PAIN TECHNIQUE: 3 views of the pelvis and hip. COMPARISON: None. FINDINGS: There is a non-specific bowel gas pattern. Normal visualized soft tissue structures. Normal bilateral iliac wings, sacroiliac joints and visualized sacrum. Normal bilateral superior and inferior pubic rami. Normal pubic symphysis. Normal bilateral ischial tuberosities. Visualized left hip arthroplasty secured by cortical screw. There is moderate degenerative change of the right knee joint. There is degenerative change of the lower lumbar spine. The visualized superficial soft tissue calcifications. RAD/HIP, UNI W/ Pelvis 2-3 Views IMPRESSION: Moderate narrowing of the right knee joint. No visualized acute fracture. Electronically Signed: Socoror Graham MD at 7:00 EDT ,
--- NOTE | 2021-12-05 16:40 | RAD_ITS ---
STUDY: X-RAY - LUMBAR SPINE REASON FOR EXAM: Female, 71 years old. HIP PAIN TECHNIQUE: 3 view(s) of the lumbar spine were obtained. COMPARISON: June 09, 2020 FINDINGS: Normal lumbar lordosis. There is no substantial scoliosis. There is a normal alignment of the vertebrae. There is multilevel endplate spondylosis of the lumbar vertebrae. There is a rudimentary disc or calcified disc at the level of L5-S1. There is degenerative change within the lumbar spine with dextroscoliosis of the mid thoracic spine. This visualized disc space narrowing L5-S1. The soft tissue structures are unremarkable. RAD/Lumbar Spine 2 or 3 Views IMPRESSION: No visualized acute loss of height or alignment. Scoliosis. Stable appearing cervical spine. Status post left hip arthroplasty. Electronically Signed: Socorro Graham MD at 7:03 EDT ,
== END | disposition home or self-care (01) ==
LOC: RAD 16:33
PROVIDERS: PCP Family Medicine Geriatric Medicine; Referring Provider Family Medicine Geriatric Medicine; Visit Provider Family Medicine Geriatric Medicine
DX: M25.559 Pain in unspecified hip (principal)
CPT/HCPCS: 72100; 73502

== ENCOUNTER 2021-12-14 12:54 | Outpatient (RCR) | payer MEDICARE, OTHER, SELFPAY ==
--- NOTE | 2021-12-14 14:03 | HP.PTEVAL_ITS ---
Patient's Visit Information TANYA RORDIGUEZ is a 71 year old F referred to Physical Therapy by Dr. Anders Lundberg MD with a diagnosis of LUMBAR RADICULOPATHY. Date of Evaluation: 12/14/21 Physical Therapist: Ally Jarquin, PT, Cert MDT - Visit Plan Frequency: 2-3x /Week Duration: 4-6 Weeks Plan: POSTURE CORRECTION/STRENGTHENING, INSTRUCTION IN APPROPRIATE BODY MECHANICS AND ACTIVITY MODIFICATIONS. DLS STARTING WITH A NEUTRAL SPINE PROGRESSING ROM TOLERATED. CAMI LE ROM, STRETCHING AND STRENGTHENING. HEP INSTRUCTION. CONSIDER AQUATIC THERAPY IF NOT TOLERATING LAND PT. DISCUSSED POSSIBLE BENEFITS OF AQUATIC THERAPY WITH PATIENT IS SHE IS AGREEABLE NEEDED. 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 NO BENDING, LIFTING OR TWISTING. PATIENT WORKS FROM HOME. Disability: NO. Present symptoms: RIGHT LOW BACK PAIN. BRUISED TAILBONE (FROM FALL). LEFT HIP PAIN AND SHOOTS INTO GROIN. PATIENT DENIES CAMI LE NUMBNESS OR TINGLING. FALL WAS TWO WEEKS AGO AND PATIENT REPORTS DR. LUNDBERG IS AWARE OF HER FALL AND RECOMMENDED SHE STILL COME TO PT. BACK PAIN GOT WORSE AFTER THE FALL BUT L HIP PAIN DID NOT. PATIENT REPORTS THAT AFTER THE FALL DR. LUNDBERG ORDERED X-RAYS AND THERE WERE NO FRACTURES PER PATIENT REPORT. MRI PENDING Sunday12/17/21. Present since: ABOUT 2 YEARS AGO - R LBP AND L HIP AND GROIN PAIN. Pain Scale: WORST 8/10, LEAST 5/10. Currently: 6/10. Commenced as a result of: DDD (BACK SURGERY IN THE 80S). Worse: STANDING FOR TOO LONG, VACUUMING - IT DOESN'T TAKE MUCH. Better: PAIN PATCH - PRESCRIPTION, GABAPENTIN, MILD SLEEPING PILL, PAIN PILL. Disturbed sleep: YES - HORRIBLE PAIN SOMETIMES. Previous history/Previous treatment: BACK SURGERY IN THE 80'S. L HIP RPLM IN 2019. PT LAST YEAR HERE AT [employer] - HELPFUL - HAD HEP BUT HASN'T BEEN ABLE TO CONTINUE DUE TO HAVING GRANDCHILDREN ALL SUMMER. HAS BEEN GOING TO [facility] FOR ABOUT A YEAR WITH LAST [facility] BEING ABOUT 2 WEEKS AGO BEFORE THE FALL. PATIENT REPORTS THE [facility] TREATMENTS WITH [facility]I HANSEN ARE HELPING. PATIENT REPORTS SHE WAS NOT IN MUCH PAIN LAST TIME SHE DID PT SHE IS NOW. Coughing/sneezing/straining:NEGATIVE. Gait: PATIENT REPORTS HER WALKING IS CURRENTLY A LITTLE UNBALANCED AND SHE FEELS LIKE SHE HAS LOST STRENGTH IN HER LEGS. PATIENT REPORTS SHE WAS WEAK FROM NOT EATING AND BEING IN THE SUN WHEN SHE LOST HER BALANCE AND FELL BACKWARDS LANDING ON HER TAILBONE. Bowel or Bladder Dysfunction: NO. Accidents: NO. Unexplained weight loss: NO. Imaging: RECENT X-RAYS AND MRI PENDING. PMH/Recent major surgery: L THR 2019. BACK SURGERY IN THE S. CERVICAL DISC REMOVAL 1999. - Objective Sitting/Standing Posture: POOR. FH. RSH'S. RECUCED LUMBAR LORDOSIS. INCREASED KYPHOSIS. Active Correction of posture: WORSE. Other Observations: THIS PATIENT AMBULATES INDEP'LY INTO PT WITHOUT ANY AD'S AND WITHOUT LOB BUT WITH DECREASED CADANCE AND DECREASED CAMI STRIDE LENGTH. Sensory deficit: CAMI LE LIGHT TOUCH SENSATION GROSSLY INTACT AND SYMMETRICAL. ROM deficit: TIGHT L HIP IR AND ER WITH PAIN AT THE END OF THE AVAILABLE ROM. PATIENT REPORTS THIS IS NOT NEW. Motor deficit: RIGHT HIP FLEX 4-/5, KNEE 4/5, ANKLE 5/5. LEFT HIP FLEX 4/5, KNEE 4/5 , ANKLE 5/5. PATIENT C/O PAIN WITH RIGHT HIP FLEX TESTING. Lumbar mvmt loss: flex - MIN. ext - EDD. R SG - EDD. L SG - EDD. PATIENT C/O INCREASED LBP WITH LUMBAR EXT AND CAMI SG ROM TESTING. Core strength: POOR. Palpation: TENDERNESS WITH LIGHT PALPATION OF ENTIRE LUMBAR AND SACRAL AREAS RIGHT > LEFT. TREATMENT: NEUROMUSCULAR REEDUCATION - RETRAINING OF MVMT AND POSTURE FOR SITTING, LYING AND STANDING ACTIVITIES. - Balance/Special Test Scores Oswestry Low Back Score: 13 - Goals Goal 1:: DECREASE C/O RIGHT LOW BACK AND LEFT HIP PAIN Goal Time Frame: 4-6 Weeks Goal 2:: IMPROVE PERSONAL CARE, LIFTING, WALKING, SITTING, STANDING, SLEEP, SOCIAL LIFE, TRAVEL AND HOMEMAKING FUNCTION. Goal Time Frame: 4-6 Weeks Goal 3:: INSTRUCT IN PROPHYLAXIS Goal Time Frame: 4-6 Weeks - Anticipated Interventions Patient/Client Instruction: Educate patient on: Condition, Plan of Care, Risk Factors For the Purpose of:: To improve self management Therapeutic Exercise to Include: Strength training, Body mechanics, Postural training, Flexibilty training, Gait and locomotor training, Neuromotor development, In an aquatic setting, Dynamic Lumbar Stabilization For the Purpose of:: To decrease pain, To increase ROM, To improve muscle performance and motor function, To increase tolerance to activity/condition/position, To improve ability of physical actions for home/community/work/leisure, To improve gait and locomotor functions Thank you for the opportunity to evaluate your patient. For Medicare and Medicare HMO plans, please review the plan of care and approve it. It will need to be FAXED BACK to us at [phone] for Medicare purposes. For Medicare only, by signing this I certify the plan of care. Please let me know if there are questions or concerns regarding this plan of care. Physician Signature: Date:
--- NOTE | 2022-04-07 09:50 | HP.PT.NRP ---
TANYA RODRIUGEZ was seen in my office for initial evaluation on 12/14/21. The following Plan of Care was established for this patient: Initial Frequency: 2-3x /Week Initial Duration: 4-6 Weeks Patient/Client Instruction: Educate patient on: Condition, Plan of Care, Risk Factors For the Purpose of:: To improve self management Therapeutic Exercise to Include: Strength training, Body mechanics, Postural training, Flexibilty training, Gait and locomotor training, Neuromotor development, In an aquatic setting, Dynamic Lumbar Stabilization For the Purpose of:: To decrease pain, To increase ROM, To improve muscle performance and motor function, To increase tolerance to activity/condition/position, To improve ability of physical actions for home/community/work/leisure, To improve gait and locomotor functions This patient was last seen in our office 12/29/21. Pertinent comments regarding their Physical therapy will appear below: This patient has not returned to Physical Therapy and is appropriate to return to MD for further follow-up as needed. At this point I will be discontinuing this patient from physical therapy. I would be happy to see this patient again in the future if found appropriate by the physician. Thank you! Ally Jarquin, PT, Cert MDT Balance/Gait/Functional tests - Balance/Special Test Scores Oswestry Low Back Score: 13
== END 2021-12-14 19:00 | disposition home or self-care (01) ==
LOC: PT 12:54
PROVIDERS: PCP Family Medicine Geriatric Medicine; Referring Provider Family Medicine Geriatric Medicine; Visit Provider Family Medicine Geriatric Medicine
DX: M54.16 Radiculopathy, lumbar region (principal)
CPT/HCPCS: 97112; 97162

== ENCOUNTER → 2021-12-17 | Outpatient (CLI) | payer MEDICARE, OTHER, SELFPAY ==
--- NOTE | 2021-12-17 08:30 | MRI_ITS ---
HISTORY: RADICULOPATHY, INCREASED FRACTURE RISK. Low back pain, groin and left hip pain, prior surgery 1983. TECHNIQUE: Multiplanar and multisequence MR images of the lumbar spine were obtained without intravenous contrast. 120 images. COMPARISON: XR 12/05/2021. MRI 06/09/2020 FINDINGS: VERTEBRAE: For the purposes of this report, there is transitional lumbosacral anatomy with a ligamentous or disc at S1-2. The numbering will be consistent with the prior MRI. Increased mild loss of height of the T12 vertebral body with mild pulmonary edema as Schmorl''s node of the superior endplate. Mild degenerative endplate changes at T12-L1 and L1-2. Lumbar vertebral body heights maintained without significant bone marrow signal abnormality. ALIGNMENT: No significant anterior or posterior subluxation. Mild scoliosis. CONUS: Normal morphology and position of the conus medullaris at L2. INTERVERTEBRAL DISCS: T12-L1: Mild posterior disc bulge osteophyte complex with facet arthropathy resulting in minimal narrowing of the thecal sac and mild right foraminal narrowing based on the sagittal images. L1-2: Left paracentral disc protrusion with facet arthropathy resulting in mild-moderate left and mild right foraminal narrowing similar to prior. No significant central canal stenosis. L2-3: Mild disc bulge with facet arthropathy resulting in minimal narrowing of the thecal sac and mild left foraminal narrowing, similar to prior. L3-4: Mild disc bulge with facet arthropathy superimposed on developmentally short pedicles resulting in mild central canal stenosis, similar to prior. No significant foraminal stenosis. L4-5: Minimal disc bulge with facet arthropathy. No significant central canal stenosis or foraminal narrowing. L5-S1: Decompressive laminectomy. No significant posterior disc protrusion, central canal stenosis, or foraminal narrowing. SOFT TISSUES: No paraspinal fluid collection. MRI/Spine Lumbar (Routine) IMPRESSION: Mild T12 compression fracture, likely subacute. Mild multilevel degenerative disc disease in the lumbar spine, similar to prior. Electronically Signed: Karen Mcfarlane MD at 16:44 EDT ,
== END | disposition home or self-care (01) ==
LOC: MRI 08:06
PROVIDERS: PCP Family Medicine Geriatric Medicine; Referring Provider Family Medicine Geriatric Medicine; Visit Provider Family Medicine Geriatric Medicine
DX: M54.16 Radiculopathy, lumbar region (principal)
CPT/HCPCS: 72148

== ENCOUNTER → 2021-12-28 | Outpatient (CLI) | payer MEDICARE, OTHER, SELFPAY ==
--- NOTE | 2021-12-28 16:19 | RAD_ITS ---
STUDY: X-RAY - THORACIC SPINE REASON FOR EXAM: Female, 71 years old patient with compression fracture of thoracic spine. TECHNIQUE: 3 view(s) of the thoracic spine were obtained. COMPARISON: MRI of the lumbar spine dated 12/17/2021. FINDINGS: There is an increase in the normal thoracic kyphosis. There appears to be curvature of the thoracic and lumbar spine with convexity towards the left. There is demineralization of the thoracic spine with endplate spondylosis. There is multilevel disc space narrowing of the thoracic spine. There is decreased height of T12 and may be result of mild compression fracture. This is of uncertain acuity. Remaining thoracic vertebral bodies have normal height and alignment. The soft tissue structures are unremarkable. RAD/Thoracic Spine 3 Views IMPRESSION: 1. Osteoporosis. 2. Mild compression fracture of T12. 3. Multilevel degenerative changes of the thoracic spine. Electronically Signed: Barbie Hillman MD at 2:40 EDT ,
== END | disposition home or self-care (01) ==
LOC: RAD 16:03
PROVIDERS: PCP Family Medicine Geriatric Medicine; Visit Provider Nurse Practitioner Family
DX: S22 Fracture of rib(s), sternum and thoracic spine (principal)
CPT/HCPCS: 72072

== ENCOUNTER 2022-01-09 10:36 | Day surgery (SDC) | payer MEDICARE, OTHER, SELFPAY ==
[2022-01-09] VITALS (7 sets, daily range): BP systolic 138–173; BP diastolic 66–82; PULSE 56–71; RESP 16–18; TEMP 36.1–36.6; O2SAT 96–99; BMI 22.3
--- NOTE | 2022-01-09 | BON_PTH ---
PATIENT: TANYA RODRIGUEZ LOC: [facility] [place] U#:[id number] AGE/SX: 71/F ROOM: RE01/09/[address]: Dr. Carmelo Ortiz MD : 1950 BED: DIS: 01/09/2022 SPEC #: [id number] RECD: 01/09/22 13:58 STATUS: AVELINA RECarl[place] #: [id number] QUOC: 01/09/22 00:[address]: Carmelo Ortiz DEPT: SURGICAL PATHOLOGY RECD BY: Felipe Naidu ENTERED: 01/10/22 08:36 SP TYPE: Bone OTHR DR: Dr. Anders Lundberg MD Tissues: Vertebra, NOS Procedures: Decalcification bone/plaque Surgery Specimen Level V HEADER OPERATION: Kyphoplasty T12 under fluoroscopy PRE-OP DIAGNOSIS: Compression fracture thoracic spine TISSUE SUBMITTED: T12 vertebral body biopsy MICROSCOPIC DIAGNOSIS T12 vertebral body, biopsy: A piece of bone, negative for malignancy, clinically compression fracture thoracic spine. See comment. CEM:geeta 01/11/2022 COMMENT Hematopoietic marrow with trilineage hematopoiesis is noted. Correlation with clinical findings and appropriate follow up are necessary. MICROSCOPIC DESCRIPTION Slides are reviewed. GROSS DESCRIPTION Received in fixative is one container labeled with the patient's name and designated T12 vertebral body biopsy. The specimen consists of an elongated piece of bone measuring 0.6 cm in length and 0.1 cm in diameter. The specimen is totally submitted in one cassette after decalcification. / CEM:geeta 01/10/2022 TC:5 CPT: 18264, 68400
[2022-01-09] MEDS: Lactated Ringers 1,000 ML 15 ML IV (11:05)
[2022-01-09] MEDS: Cefazolin 2 GM in 0.9% Normal Saline 100 ML IV (11:48)
--- NOTE | 2022-01-09 11:58 | RAD_ITS ---
STUDY: X-RAY - THORACIC SPINE REASON FOR EXAM: Female, 71 years old. KYPHOPLASTY T12 -- 127.2 FLUORO SEC, 29.94mGy TECHNIQUE: 11 Limited lateral intraoperative C-arm photos, 10 Limited AP intraoperative studies COMPARISON: None. FINDINGS: AP and lateral views were performed as the patient has undergone vertebroplasty with methyl methacrylate cement injected into the known fractured T12 vertebral body. There is a small amount of extravasation into the T12-L1 disc space anteriorly best seen on images 8, 9 and 10. No intraoperative complications RAD/Thoracic Spine 2 Views IMPRESSION: Successful T12 vertebroplasty noted. Small amount of extravasation of contrast noted into the anterior T12/L1 disc space Electronically Signed: Davis Franco MD at 13:06 EDT ,
[2022-01-09] MEDS: Lidocaine 1% (20 ml mdv) 20 ML Vial (12:40)
--- NOTE | 2022-01-09 12:43 | OP.PCM_ITS ---
Report of Operation Date of Procedure: 01/09/22 Description of Surgical Findings:: PROCEDURES: 1. Todd balloon kyphoplasty at the T12 level 2. Insertion of [place] HV-R bone cement under low pressure at the T12 3. Bone biopsy at T12 4. Fluoroscopic guidance and interpretation of images PREOPERATIVE DIAGNOSES: Osteoporosis, compression fracture of T12 POSTOPERATIVE DIAGNOSES: Osteoporosis, compression fracture of T12 ANESTHESIA: MAC COMPLICATIONS: None BLOOD LOSS: Minimal PROCEDURE IN DETAIL: History and physical today was reviewed. Risks and benefits of procedure explained. The patient understood, agreed to procedure, informed consent was obtained. IV inserted per routine protocol. The patient was taken to the operating room, placed in the prone position with a pillow positioned underneath the chest. A 2 g of Ancef IV piggyback was infused per anesthesia. The upper and middle back area was prepped and draped in a sterile fashion using iodine x3. Under direct visualization with fluoroscopy with the C-arm, which brought into position on AP as well as lateral view at the T12 level., the T12 pedicle was then identified. In the view of the collapsed T12, a unilateral transpedicular approach to the vertebral body was appropriate. Starting on the left side at T12 level, an 11-gauge needle was advanced through the T12 pedicle through the junction of the pedicle and the vertebral body on the left side. Position was then confirmed on AP as well as lateral view. Following satisfactory placement of the needle to make sure it is further off the midline and interlaminar space. The skin and subcutaneous tissue anesthetized with approximately 10 cc of preservative-free 0.25% Marcaine and 2% lidocaine mixed 50-50 using a 3-1/2 inch spinal needle directed towards the periosteum at the pedicle of T12 on the left side, A 11-gauge trocar was then advanced via the skin towards the superiormost aspect of the left pedicle at T12 the trocar was then advanced under direct visualization on AP as well as lateral view, from the anterior cortex on the lateral view. AP and lateral images were then taken to verify position and trajectory of the needle. The trocar was then advanced under direct visualization fluoroscopy on AP as well as lateral view using a mallet careful attention to the lateral border of the pedicle as well as the medial border once the trocar was approximately 4 mm into the body of L4 after repeated confirmation of AP as well as lateral view the trocar was then me dialized towards the midline passing the medial aspect of the pedicle once safety was confirmed that the trocar past the medial aspect and avoiding the interlaminar space the trocar was then advanced to approximately 5 mm off the anterior cortex once the channel was created the the stylette was then removed and a biopsy was then taken of the body of T12 under direct visualization with fluoroscopy the stylette was then reinserted and advanced under direct visualization with fluoroscopy to be approximately 3 mm off the anterior cortex of's confirmation AP as well as lateral view of creating the channel. a 30 mL inflatable bone tamp was then inserted through the cannula and advanced under direct fluoroscopic guidance into the vertebral body near the anterior cortex., The biopsy was then taken at the T12 level. After completion of the entry into the vertebral body, a balloon tamp utilizing radiopaque marker bands on the bone tamp were identified using AP and lateral images. The balloon was then inflated to approximately 3 mL and making sure that the pressure is not passing 250 psi. Expansion of the bone tamp was then done sequentially in an increments of 0.25 to 0.5 mL of contrast with a careful attention was being paid to the inflation pressure and the balloon position. The inflation was then monitored on AP and lateral view images. The final balloon volume was 2.8mL. There was no breach of the lateral wall or the anterior cortex of the vertebral body. Direct reduction of the fracture was then achieved. Endplate movement was then noticed and approximately 5 mm of the height confucianist was achieved at T12 Under fluoroscopic imaging and a bone void filler, internal fixation was achieved through a low pressure injection of a [place] HV-R bone cement. The cavity was then filled with a total volume of 4.4 mL on the left side at T12, Once the bone cement had hardened, the cannula was then removed. Once the cannula was removed and satisfactory hemostasis was maintained, the incision as then closed with a 4-0 Vicryl at the skin. The patient was kept in the prone position for approximately 10 minutes post-cement injection. And was then turned into supine position, monitored briefly and returned to PACU. The patient was moving both of her lower extremities at the same time without any apparent neurological deficits. Throughout the procedure, there were no intraoperative complications. ESTIMATED BLOOD LOSS: Minimal less than 10 mL ASSESSMENT AND PLAN: This is a 71-year-old Female with compression fracture of T12 and osteoporosis status post Todd balloon kyphoplasty at T12 and insertion of an HV-R bone cement under low pressure at T12, biopsy of T12 under fluoroscopic guidance, the patient will continue her current medication. The patient will follow-up in approximately 1 week for re- evaluation. Postoperative instructions were given to the patient as well as her verbally as well as in writing. Motor as well as sensory exam was unch anged from prior to procedure.
== END 2022-01-09 14:04 | disposition home or self-care (01) ==
LOC: SDC 10:39 → AC 11:00
PROVIDERS: PCP Family Medicine Geriatric Medicine; Referring Provider Anesthesiology Pain Medicine; Visit Provider Anesthesiology Pain Medicine
PROC: (CPT 22513; principal; 2022-01-09 12:20)
DX: M80.08XA Age-related osteoporosis with current pathological fracture, vertebra(e), initial encounter for fracture (principal); M46.96 Unspecified inflammatory spondylopathy, lumbar region; K21.9 Gastro-esophageal reflux disease without esophagitis; Z98.1 Arthrodesis status; Z87.891 Personal history of nicotine dependence; M47.817 Spondylosis without myelopathy or radiculopathy, lumbosacral region; M51.37 Other intervertebral disc degeneration, lumbosacral region; Z79.899 Other long term (current) drug therapy; E03.9 Hypothyroidism, unspecified
CPT/HCPCS: 22513; 20245; 72070; 76000; 88305; 88307; 88311; J7120; J2405

== ENCOUNTER → 2022-02-21 | Outpatient (CLI) | payer MEDICARE, OTHER, SELFPAY ==
[2022-02-21 17:04] LABS: Absolute Lymphocyte Count 1.82 X10^3/uL (0.83-4.51); Absolute Neutrophil Count 6.1 X10^3/uL (2.0-7.7); Basophil# 0.06 X10^3/uL; Basophil% 0.7 % (0-1); Eosinophil# 0.01 X10^3/uL; Eosinophils% 0.1 % (0-5); Hematocrit 42.3 % (37-47); Hemoglobin 14.1 g/dL (12.0-15.0); Lymphocyte # 1.82 X10^3/ul (0.83-4.51); Lymphocyte % 20.6 % (19-41); Mean Corp Hgb Conc 33.3 g/dL (32-36); Mean Corpuscular Volume 99.1 fL (81-99); Mean Platelet Vol. 9.1 fl (6.2-12.0); Monocyte# 0.83 X10^3/uL; Monocyte% 9.4 % (0-10); NRBC Flagged by Analyzer 0 % (0-5); Neutrophil # 6.08 X10^3/uL (2.7-7.7); Neutrophil % 68.6 % (47-70); Platelet Count 477 K/mm3 (150-450); RBC Distribution Width CV 11.6 % (11.6-14.6); Red Blood Count 4.27 M/mm3 (4.2-5.4); White Blood Count 8.9 K/mm3 (4.4-11.0)
[2022-02-21 18:01] LABS: ALB/GLOB Ratio 1.2 RATIO (0.9-2.4); AST(SGOT) 21 U/L (15-37); Alanine Aminotransfer ALT/SGPT 23 U/L (13-56); Albumin, Serum 4.2 g/dL (3.2-5.0); Alkaline Phosphatase 66 U/L (45-117); Anion Gap 11 (5-15); BUN 8 mg/dL (7-18); BUN/Creat Ratio 12.3 RATIO (10-20); Calcium,Total 9.2 mg/dL (8.5-10.1); Chloride 98 mmol/L (98-107); Creatinine, Serum 0.65 mg/dL (0.55-1.02); EST Glomerular Filtration Rate 95 mL/min (>60); Est Glom Filt Rate - Afr Amer 115 mL/min (>60); Globulin 3.6 g/dL (2.2-4.2); Glucose 88 mg/dL (74-106); Potassium 3.5 mmol/L (3.5-5.1); Protein, Total 7.8 g/dL (6.4-8.2); Sodium Level 135 mmol/L (136-145); Thyroid Stim Hormone (TSH) 1.06 uIU/mL (0.358-3.74)
== END | disposition home or self-care (01) ==
LOC: POLAB3 14:19
PROVIDERS: PCP Family Medicine Geriatric Medicine; Visit Provider Family Medicine Geriatric Medicine
DX: E55.9 Vitamin D deficiency, unspecified (principal); R53.83 Other fatigue
CPT/HCPCS: 36415; 80053; 82306; 84443; 85025

== ENCOUNTER → 2022-03-15 | Outpatient (CLI) | payer MEDICARE, OTHER, SELFPAY ==
--- NOTE | 2022-03-15 09:12 | BD_ITS ---
STUDY: DUAL ENERGY X-RAY ABSORPTIOMETRY / DXA REASON FOR EXAM: Female, 72 years old. 627.8Menopausal postmenopausalBONE DENSITY REASON FOR EXAM TECHNIQUE: Bone Mineral Density (BMD) measurements of lumbar spine and right hip were obtained. COMPARISON: Comparison is made with prior examination 11/21/2016. FINDINGS: Lumbar Spine (L1-L4): g/cm2 (1.129) / T-score (0.7) / Z-score (2.9) Findings are suggestive of normal bone density with a low fracture risk. Right Femur Total: g/cm2 (0.805) / T-score (-1.1) / Z-score (0.4) Right Femoral Neck: g/cm2 (0.675) / T-score (-1.6) / Z-score (0.3) The T-Scores on the most recent prior examination were: Lumbar Spine (L1-L4): There has been improvement of bone density since the previous examination. Right Femur Total: which represents an improvement of 2.3%. BD/Dexa Bone Density Study IMPRESSION: The patient is considered osteopenic as outlined below according to World Evangelist Organization (WHO) criteria with a moderate fracture risk. There has been improvement of bone density since the previous examination. Reference Information: The T-score is the number of standard deviations above or below the standard which is normal for young adults at their peak bone mineral density. The World Health Organization (WHO) interprets the T-scores as follows: Above -1 Normal bone density Between -1 and -2.5 Osteopenia Equal to / or below -2.5 Osteoporosis As a practical clinical guideline, osteopenia may be graded as follows: Mild -1 through -1.5 Moderate -1.6 through -2.0 Severe -2.1 through -2.4 The Z-score is the number of standard deviations above or below age-matched controls. A Z-score of less than -1.5 would be considered abnormal. References: 1. NIH Osteoporosis and Related Bone Diseases www osteo.org 2. International Society for Clinical Densitometry www iscd.org 3. National Osteoporosis Foundation www nof.org Electronically Signed: Matti Sevilla MD at 15:10 EST ,
== END | disposition home or self-care (01) ==
PROVIDERS: PCP Family Medicine Geriatric Medicine; Visit Provider Family Medicine Geriatric Medicine
DX: Z78.0 Asymptomatic menopausal state (principal); M85.80 Other specified disorders of bone density and structure, unspecified site
CPT/HCPCS: 77080

== ENCOUNTER → 2022-08-24 | Outpatient (CLI) | payer MEDICARE, OTHER, SELFPAY ==
[2022-08-24 16:51] LABS: Absolute Lymphocyte Count 1.63 X10^3/uL (0.83-4.51); Basophil# 0.03 X10^3/uL; Basophil% 0.6 % (0-1); Eosinophil# 0.02 X10^3/uL; Eosinophils% 0.4 % (0-5); Hematocrit 41.3 % (37-47); Hemoglobin 13.5 g/dL (12.0-15.0); Lymphocyte # 1.63 X10^3/ul (0.83-4.51); Lymphocyte % 31.9 % (19-41); Mean Corp Hgb Conc 32.7 g/dL (32-36); Mean Corpuscular Hgb 31.5 pg (27.0-32.0); Mean Corpuscular Volume 96.3 fL (81-99); Mean Platelet Vol. 9.9 fl (6.2-12.0); Monocyte# 0.39 X10^3/uL; Monocyte% 7.6 % (0-10); NRBC Flagged by Analyzer 0 % (0-5); Neutrophil # 3.03 X10^3/uL (2.7-7.7); Neutrophil % 59.3 % (47-70); Platelet Count 384 K/mm3 (150-450); RBC Distribution Width CV 11.8 % (11.6-14.6); RBC Distribution Width SD 41.2 fl (35.1-43.9); Red Blood Count 4.29 M/mm3 (4.2-5.4); White Blood Count 5.1 K/mm3 (4.4-11.0)
[2022-08-24 19:19] LABS: ALB/GLOB Ratio 1.1 RATIO (0.9-2.4); AST(SGOT) 25 U/L (15-37); Alanine Aminotransfer ALT/SGPT 15 U/L (13-56); Albumin, Serum 3.9 g/dL (3.2-5.0); Alkaline Phosphatase 89 U/L (45-117); Anion Gap 10 (5-15); BUN 8 mg/dL (7-18); BUN/Creat Ratio 11.7 RATIO (10-20); Calcium,Total 9.2 mg/dL (8.5-10.1); Chloride 104 mmol/L (98-107); Creatinine, Serum 0.68 mg/dL (0.55-1.02); EST Glomerular Filtration Rate 90 mL/min (>60); Est Glom Filt Rate - Afr Amer 109 mL/min (>60); Globulin 3.5 g/dL (2.2-4.2); Glucose 95 mg/dL (74-106); Potassium 3.8 mmol/L (3.5-5.1); Protein, Total 7.4 g/dL (6.4-8.2); Sodium Level 139 mmol/L (136-145); Thyroid Stim Hormone (TSH) 0.65 uIU/mL (0.358-3.74)
== END | disposition home or self-care (01) ==
LOC: POLAB3 09:23
PROVIDERS: PCP Family Medicine Geriatric Medicine; Visit Provider Family Medicine Geriatric Medicine
DX: R53.83 Other fatigue (principal); E55.9 Vitamin D deficiency, unspecified
CPT/HCPCS: 36415; 80053; 82306; 84443; 85025

== ENCOUNTER → 2022-09-26 | Outpatient (CLI) | payer MEDICARE, OTHER, SELFPAY ==
--- NOTE | 2022-09-26 15:29 | BI_ITS ---
MAMMOGRAPHY - BILATERAL SCREENING REASON FOR EXAM: Female, 72 years old. Routine annual screening examination. PERTINENT HISTORY: Aunt with breast cancer. TECHNIQUE: Digital bilateral breast kacie (3D mammographic acquisition) in the CC and MLO projections. 2-D mediolateral oblique (MLO) and craniocaudad (CC) views of both breasts were obtained. CAD: Full Field Digital Mammography with Computer Added Detection was performed. COMPARISON: Mammogram from 10/12/2020, 12/30/2018. FINDINGS: Breast Composition: The breasts are heterogeneously dense, which may obscure small masses. There are no dominant masses or suspicious calcifications. No other significant abnormalities are identified. There has been no significant change since the prior study. BI/SCRN MAMM (CAD)W/KACIE BILAT IMPRESSION: Stable bilateral screening mammogram. Yearly follow-up mammogram recommended. (A) ASSESSMENT CATEGORY: BIRADS Category 1: Negative. A letter regarding these results will be sent to the patient by the facility within 30 days. Approximately 10% of breast cancers are not detected by mammography. A normal mammogram should not delay biopsy of a clinically suspicious abnormality. Electronically Signed: Major Lisa DO at 9:08 EDT ,
== END | disposition home or self-care (01) ==
LOC: OPBI 15:25
PROVIDERS: PCP Family Medicine Geriatric Medicine; Referring Provider Family Medicine Geriatric Medicine; Visit Provider Family Medicine Geriatric Medicine
DX: Z12.31 Encounter for screening mammogram for malignant neoplasm of breast (principal); Z80.3 Family history of malignant neoplasm of breast
CPT/HCPCS: 77063; 77067

== ENCOUNTER 2022-10-09 15:30 | Outpatient (RCR) | payer MEDICARE, OTHER, SELFPAY ==
--- NOTE | 2022-07-31 09:22 | HP.PTEVAL_ITS ---
Patient's Visit Information TANYA RODRIGUEZ is a 72 year old F referred to Physical Therapy by Dr. Ad Lal MD with a diagnosis of s/p laminectomy/fusion L3 s1 06/29. Date of Evaluation: 07/31/22 Physical Therapist: Guille Montes, DPT, OCS, CSCS - Visit Plan Frequency: 2x /Week Duration: 2 Months Plan: 2x/week for 4 to start and 6-8 overall for. 1. gentle unweighted lumbar ROM rotation trunk and extension, stretch psoas to HEP. 2. isometric strength core. 3. LE strength, postural strength to HEP. ice as needed, TENS if painful. monitor incision as needed. - Subjective Had spinal fusion 06/29 one month ago. had a lot of pain prior to surgery for 3- 4 yrs in back and into groin L side. She thinks it helped. For the last month has been walking and wearing brace. Walks 3x/day 1/4 mile. Feels great after done but exhausted. Also doing some leg ex ercises stadning and bed exercises tightening core. Wearing brace most of time, takes it off to sit. Weaning out of it. Precautions include not lifting over 10#, is not driving. Takes pain meds at night if needed. Was in pain last night due to busy day and did not get ex in. Using cane to get around just to be sure but not at home. Sleep is Ok on back,. 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 Will go back to 9 hrs/day 5 days per week. May try to go back in august. needs to get back to life. Typically no regular exercises. Basic ADLs: dresses self, i bathroom and shower. Lives with . Dtr cooks and cleans typically. No steps at home, 4 steps to garage and raina tis going Ok. - Pain LBP Pain Intensity (Out of 10): 0 Pain Intensity Range: 0, 3 Comment: intermittent - Objective incision is posterior and long, healed well, appears delayed healing at top but going nicely now, no signs of excessive redness heat or swelling, mild scar tissue palpable underneath. Tightness in B psoas. Lumbar AROM flexion not tested, extension mod deficits, SB mod deficits, stiff. + Slump and SLR, ANRS shown to patient. strength core abs 3 and extension 3. LE AROM WFL, l hip is limited in extension(RAINA 2 yrs) but otherwise WFL. reflexes 2/3 patella and achilles B. Sensation LE WNL to gross light touch. Strength hips L 3 abd and ext, R 3+, flexion 3+ L and 4- R,. knee flexiona dn extension 4- L and 4 R. ankle 4+ B. Walking with cane I , trasnfers I, steps prefer to use R due to weakness in L but able with L and one rail up and down. has not done steps with L in 2 yrs before hip. Ambulates without AD I albeit slow and hesitant compared to with cane. - Balance/Special Test Scores Oswestry Low Back Score: 27 - Goals Goal 1:: ST patient ambulate 30 minutes without increased pain Goal Time Frame: 4-6 Weeks Goal 2:: ST:Patient sleep without interruption Goal Time Frame: 2-4 Weeks Goal 3:: LT: Pt feel 755 better in overall pain to 1/10 at worst Goal Time Frame: 6-8 Weeks Goal 4:: Steps reciprocally without rail Goal Time Frame: 6-8 Weeks Goal 5:: I management of condition HEP Goal Time Frame: 6-8 Weeks Goal 6:: 7 or less oswestry Goal Time Frame: 6-8 Weeks - Rehabilitation Potential Physical Therapy Diagnosis: weakness and stiffness s/p fusion Rehabilitation Potential: Fair - Anticipated Interventions Patient/Client Instruction: Educate patient on: Condition, Plan of Care For the Purpose of:: To decrease pain, To increase ROM, To improve nutrient delivery to tissue, To improve muscle performance and motor function, To increase tolerance to activity/condition/position, To improve ability of physical actions for home/community/work/leisure Therapeutic Exercise to Include: Strength training, Flexibilty training, Gait and locomotor training, Dynamic Lumbar Stabilization For the Purpose of:: To decrease pain, To increase ROM, To improve nutrient delivery to tissue, To increase tolerance to activity/condition/position, To improve ability of physical actions for home/community/work/leisure, To improve gait and locomotor functions TENS: Yes Cryotherapy (ice pack, ice massage): Yes For the Purpose of:: To decrease pain, To improve nutrient delivery to tissue Thank you for the opportunity to evaluate your patient. For Medicare and Medicare HMO plans, please review the plan of care and approve it. It will need to be FAXED BACK to us at [phone] for Medicare purposes. For Medicare only, by signing this I certify the plan of care. Please let me know if there are questions or concerns regarding this plan of care. Physician Signature: Date:
--- NOTE | 2022-10-09 16:01 | HP.PTDCSUM ---
Discharge Summary D/C summary: It has been my pleasure to treat TANYA RODRIGUEZ referred by Dr. Ad Lal MD, with the diagnosis of S/P laminectomy/fusion L3-S1 (06/29) for a total of 18 visit(s). Discharge Date: 10/09/22 Please see the following information for a summary of their discharge status. Subjective Subjective: Still has sensation around L hip upper quad 4/10 if overdoes some things like vaccuming, stairs, walk and out to garden. Sleeping is interrupted if she overdoes it. HEP: core strengthening daily. Every other day. Walking daily 1 mile. 45 minutes and OK after ambulation. Gym routine is tough but tolerating OK. Can continue all exercises on home gym Pain LBP: Pain Intensity (Out of 10): 0 Overall Improvement % Improvement: 75 Objective Objective/Function: LB AROM ext min limited, flexion min limited, SB min limited, No pain but stiff FW. walking without gait deviations, slightly wide MARTI before cueing. Steps reciprocal up and down with no rail, may have some funcitonal wekaness in R hip which was replaced. Goals Goal 1:: ST patient ambulate 30 minutes without increased pain Goal Progress: Goal Met Goal 2:: ST:Patient sleep without interruption Goal Progress: Goal Met Goal 3:: LT: Pt feel 755 better in overall pain to 1/10 at worst Goal Progress: Goal Met Goal 4:: Steps reciprocally without rail Goal Progress: one rail Goal 5:: I management of condition HEP Goal Progress: Goal Met Goal 6:: 7 or less oswestry Goal Progress: Progressing Plan Plan: d/c to HEP D/C Information Discharge Comments: Pt ready to be done and will continue strength and ROM and stretching at home via HEP. d/c sentence: If there are questions or concerns regarding this patient's physical therapy, please feel free to call me at [phone]. Thank you for the referral of this patient. Sincerely, Guille Montes, DPT, OCS, CSCS Balance/Gait/Functional tests Balance/Special Test Scores Oswestry Low Back Score: 10
== END 2022-10-09 19:00 | disposition home or self-care (01) ==
LOC: PT 15:30
PROVIDERS: PCP Family Medicine Geriatric Medicine; Referring Provider Orthopaedic Surgery Orthopaedic Surgery of the Spine; Visit Provider Orthopaedic Surgery Orthopaedic Surgery of the Spine
DX: Z98.1 Arthrodesis status (principal)
CPT/HCPCS: 97014; 97110; 97162; 97164; 97530; G0283

== ENCOUNTER 2022-10-10 11:44 | Emergency (ER) | payer MEDICARE, OTHER, SELFPAY ==
[2022-10-10 11:45] VITALS: BP 152/87; PULSE 92; RESP 16; TEMP 36.6; O2SAT 98; BMI 23.6
[2022-10-10] MEDS: Diphth,Pertuss(Acell),Tet Vac 0.5 ML Vial IM (12:56)
--- NOTE | 2022-10-10 13:01 | ED.VIS.LOWEX ---
HPI History of Present Illness HPI Narrative: Patient presents with laceration to her right lower leg that occurred today. Patient states she cut it on the edge of a plastic container. Patient describes the pain as sharp. Patient states the bleeding stopped after a few minutes. Patient denies any paresthesias or weakness. Patient denies any other injuries. Patient states her last tetanus was more than 10 years ago. Chief Complaint: Laceration Informant: patient Occured/Mechanism Comment: Cut leg on plastic container Onset/Context/Timing Onset: Today Context: Sudden Onset Timing: Continuous Quality of Pain: Sharp Location: Right lower leg Worsened by: Nothing Relieved by: Nothing Associated Symptoms Associated Symptoms: Negative for Parasthesia, Weakness or Loss of Funtion Narrative Tetanus Immunization: >10 years [facility] Medical History Alcohol use Anemia Anxiety Arthritis Back pain Cataracts, bilateral Easy bruising Former smoker History of edema History of IBS History of steroid therapy History of stress test Hypothyroidism Injury of back Leg cramps Migraine headache Syncope Vitamin D deficiency, unspecified Wears glasses Home Medications lidocaine 5 % topical patch 2 patch topical DAILY 05/03/17 [History Last Taken 1 Day Ago ~09/21/17] meloxicam 15 mg tablet 15 mg PO QDAY 05/03/17 [History Last Taken 09/22/17] doxepin 10 mg capsule 10 mg PO QHS 12/16/19 [History Last Taken Unknown] folic acid 400 mcg tablet 0.4 mg PO DAILY@0800 12/16/19 [History Last Taken Unknown] linaclotide 145 mcg capsule 145 mcg PO DAILY 12/16/19 [History Last Taken Unknown] loratadine 10 mg tablet 10 mg PO DAILY 12/16/19 [History Last Taken Unknown] estradiol 0.1 mg/24 hr semiweekly transdermal patch (Bessie) 2 patch transdermal MOTH 03/15/20 [History Last Taken Unknown] gabapentin 100 mg capsule 100 mg PO QHS 06/22/20 [History Last Taken Unknown] levothyroxine 75 mcg tablet 75 mcg PO DAILY #90 tabs 06/20/21 [Rx Last Taken 01/09/22] acetaminophen 500 mg tablet 1,000 mg PO BID 01/06/22 [History Last Taken Unknown] vitamin Z40-fasiqce B1 100 mg-1 mg/mL intramuscular solution 1 ml IM .QMO 01/06/22 [History Last Taken Unknown] Allergy/AdvReac Type Severity Reaction Status Date / Time No Known Allergies Allergy Verified 10/10/22 11:46 Family History Mother Rheumatoid arthritis Father Pancreatic cancer Cancer Grandfather Myocardial infarction Grandmother Thyroid disorder Surgical History History of cervical discectomy History of hysterectomy History of lumbar spinal fusion History of total hip replacement Status post spinal disc removal Social History Smoking Status: Former smoker alcohol intake: current alcohol intake frequency: a few times a week Alcohol type: wine substance use type: does not use what type of physical activity do you participate in: other details: physical therapy frequency: 1-2 times per week ROS ROS ED Constitutional Constitutional ED: Denies chills or fever(s) Eyes Eyes: Denies blurry vision or change in vision ENT ENT ED: Denies rhinorrhea or sore throat Cardiovascular Cardiovascular: Denies chest pain or palpitations Respiratory/Chest Respiratory/Chest: Denies cough or dyspnea Gastrointestinal Gastrointestinal: Denies nausea or vomiting Genitourinary Genitourinary ED: Denies dysuria or hematuria Musculoskeletal Musculoskeletal: Denies back pain or neck pain Integumentary Denies abscess or rash Neurologic Neurologic: Denies headache(s) or weakness Allergic/Immunologic Allergic/Immunologic ED: Denies mouth swelling or urticaria EXAM Physical Exam Const Vital Signs: 10/10/22 11:45 Temperature 98 F Temperature Source Temporal Pulse Rate 92 Respiratory Rate 16 Blood Pressure 152/87 H Blood Pressure Mean 108 Pulse Ox 98 Oxygen Delivery Method Room Air Positive well nourished and well developed General Appearance ED: well developed and NAD HEENT Reports moist mucous membranes Neck full ROM and supple Extremity Extremity Narrative: There is a 7 cm full-thickness linear laceration over the medial aspect of the right lower leg. There is moderate gapping of the wound margins. There is no active bleeding noted. There are no foreign bodies noted. There is no tendon or muscle belly lacerations. Strength is 5/5 bilaterally in the lower extremities. There are no sensory deficits noted. Posterior tibial and pedal pulses are equal bilaterally. Neuro oriented x3, CN's II-XII intact bilaterally, moves all extremities and no sensory deficits noted Sensorium / Orientation: alert Motor Exam: strength 5/5 throughout Psych mental status grossly normal MDM MDM MDM Narrative Medical decision making narrative: Patient was advised of the need for sutures. Patient is agreeable with the plan. The wound was cleaned and irrigated with copious amounts of normal saline. The wound was anesthetized with 1% plain lidocaine locally. The wound was closed with 5 horizontal mattress #4 -0 nylon sutures under sterile technique. Patient tolerated the procedure well. Bacitracin dressing was applied. Procedures Lacerations Right lower leg: Length: 7 cm Depth: Sub Q Shape: Linear Prep: Sterile Conditions and Chlorhexadine Laceration repair: Irrigated, Lidocaine, Local, Skin sutures and Wound explored Irrigated (ml): 100 Number of Sutures/Rashad: 5 Suture Information: Ethilon, Horizontal, Mattress and 4-0 Discharge Plan Triage Chief Complaint: Laceration ED Provider: Guille Navarrete Dx/Rx/DC Orders Clinical Impression: Laceration of right lower leg Instructions: ED Laceration: All Closures Prescriptions: No Action meloxicam 15 mg tablet 15 mg PO QDAY lidocaine 5 % adhesive patch,medicated 2 patch TOPICAL DAILY estradiol [Bessie] 0.1 mg/24 hr patch semiweekly 2 patch Transdermal MOTH gabapentin 100 mg capsule 100 mg PO QHS Patient Comments: take 1 capsule by mouth once daily levothyroxine 75 mcg tablet 75 mcg PO DAILY Qty: 90 3RF doxepin 10 MG capsule 10 mg PO QHS folic acid 0.4 MG tablet 0.4 mg PO DAILY@0800 loratadine 10 MG tablet 10 mg PO DAILY linaclotide 145 MCG capsule 145 mcg PO DAILY vitamin Y92-tihmhny B1 100-1 mg/mL Solution 1 ml IM .QMO acetaminophen 500 MG tablet 1,000 mg PO BID Primary Care Provider: Anders Lundberg Chi Referrals: Anders Lundberg Chi, MD [Primary Care Provider] - 7 Days for suture removal Disposition Disposition: Home, Self Care
[2022-10-10] MEDS: Lidocaine 1% (20 ml mdv) 20 ML Vial INFILT (14:35)
== END 2022-10-10 14:39 | disposition home or self-care (01) ==
PROVIDERS: Emergency Provider Emergency Medicine; PCP Family Medicine Geriatric Medicine; Visit Provider Emergency Medicine
DX: S81.811A Laceration without foreign body, right lower leg, initial encounter (principal); Z87.891 Personal history of nicotine dependence; M19.90 Unspecified osteoarthritis, unspecified site; Z79.899 Other long term (current) drug therapy; F41.9 Anxiety disorder, unspecified; K58.9 Irritable bowel syndrome, unspecified; E03.9 Hypothyroidism, unspecified; Z90.710 Acquired absence of both cervix and uterus; Z96.649 Presence of unspecified artificial hip joint; W26.8XXA Contact with other sharp object(s), not elsewhere classified, initial encounter; Z23 Encounter for immunization
CPT/HCPCS: 12002; 90471; 90715; 99283

== ENCOUNTER → 2022-10-18 | Outpatient (CLI) | payer MEDICARE, OTHER, SELFPAY ==
[2022-10-18 20:18] LABS: M R Staph aureus DNA By PCR Negative (Negative); Probe Check PASS; Specimen Processing Control PASS; Staph aureus DNA By PCR NEGATIVE (Negative)
== END | disposition home or self-care (01) ==
PROVIDERS: PCP Family Medicine Geriatric Medicine; Visit Provider Family Medicine Geriatric Medicine
DX: L03.115 Cellulitis of right lower limb (principal)
CPT/HCPCS: 87070; 87077; 87205; 87640

== ENCOUNTER → 2022-10-25 | Outpatient (CLI) | payer MEDICARE, OTHER, SELFPAY ==
[2022-10-25 17:22] LABS: Absolute Lymphocyte Count 1.33 X10^3/uL (0.83-4.51); Absolute Neutrophil Count 4.5 X10^3/uL (2.0-7.7); Basophil# 0.06 X10^3/uL; Basophil% 0.9 % (0-1); Eosinophil# 0.05 X10^3/uL; Eosinophils% 0.8 % (0-5); Hematocrit 42.3 % (37-47); Hemoglobin 13.8 g/dL (12.0-15.0); Lymphocyte # 1.33 X10^3/ul (0.83-4.51); Lymphocyte % 20.3 % (19-41); Mean Corp Hgb Conc 32.6 g/dL (32-36); Mean Corpuscular Hgb 31.7 pg (27.0-32.0); Mean Corpuscular Volume 97.2 fL (81-99); Mean Platelet Vol. 9.8 fl (6.2-12.0); Monocyte# 0.61 X10^3/uL; Monocyte% 9.3 % (0-10); NRBC Flagged by Analyzer 0 % (0-5); Neutrophil # 4.49 X10^3/uL (2.7-7.7); Neutrophil % 68.4 % (47-70); Platelet Count 359 K/mm3 (150-450); RBC Distribution Width CV 12.3 % (11.6-14.6); RBC Distribution Width SD 44.1 fl (35.1-43.9); Red Blood Count 4.35 M/mm3 (4.2-5.4); White Blood Count 6.6 K/mm3 (4.4-11.0)
[2022-10-25 17:46] LABS: Erythrocyte Sedimentation Rate 6 mm/hr (0-30)
[2022-10-25 18:03] LABS: AST(SGOT) 16 U/L (15-37); Alanine Aminotransfer ALT/SGPT 16 U/L (13-56); Albumin, Serum 3.5 g/dL (3.2-5.0); Alkaline Phosphatase 98 U/L (45-117); Anion Gap 6 (5-15); BUN 17 mg/dL (7-18); CRP 3.78 mg/L (0.0-3.0); Chloride 104 mmol/L (98-107); Creatinine, Serum 0.71 mg/dL (0.55-1.02); EST Glomerular Filtration Rate 87 mL/min (>60); Est Glom Filt Rate - Afr Amer 105 mL/min (>60); Globulin 3.5 g/dL (2.2-4.2); Glucose 101 mg/dL (74-106); Potassium 4.2 mmol/L (3.5-5.1); Sodium Level 139 mmol/L (136-145)
== END | disposition home or self-care (01) ==
LOC: POLAB3 17:02
PROVIDERS: PCP Family Medicine Geriatric Medicine; Visit Provider Family Medicine Geriatric Medicine
DX: L03.115 Cellulitis of right lower limb (principal); M79.89 Other specified soft tissue disorders
CPT/HCPCS: 36415; 80053; 85025; 85652; 86140

== ENCOUNTER → 2022-10-26 | Outpatient (CLI) | payer MEDICARE, OTHER, SELFPAY ==
--- NOTE | 2022-10-26 09:51 | VDLE_ITS ---
Reason For Study: RLE SWELLING RIGHT LEFT GSV is normal. CFV is compressible, spontaneous, phasic, CFV is compressible, spontaneous, phasic, competent, and demonstrates normal competent and demonstrates normal augmentation. augmentation. FV is compressible, spontaneous, phasic, competent and demonstrates normal augmentation. POP V is compressible, spontaneous, phasic, competent and demonstrates normal augmentation. T/P Trunk is compressible. PTV is compressible. RT PerV is compressible. Procedure This is a venous duplex using B-mode, color flow and spectral Doppler. Exam performed in department. The exam was diagnostic. A preliminary report was called and/or faxed to Dr. Lundberg @ 10:25 am @ [phone]. VL/Venous Duplex US, Unilateral Interpretation Summary Deep veins of the right lower extremity are patent and compressible segmentally . There is no evidence of right lower extremity deep vein thrombosis. The right great sapheno us vein appears patent and compressible segmentally. Ordering Physician: Anders Lundberg Chi Referring Physician: Anders Lundberg Chi Performed By: Tabatha Ramsay, DEVON, RVT
== END | disposition home or self-care (01) ==
PROVIDERS: PCP Family Medicine Geriatric Medicine; Referring Provider Family Medicine Geriatric Medicine; Visit Provider Family Medicine Geriatric Medicine
DX: M79.89 Other specified soft tissue disorders (principal)
CPT/HCPCS: 93971

== ENCOUNTER → 2022-11-06 | Outpatient (CLI) | payer MEDICARE, OTHER, SELFPAY ==
--- NOTE | 2022-11-06 10:38 | MRI_ITS ---
STUDY: MRI LOWER EXTREMITY RIGHT TIBIA/FIBULA WITH AND WITHOUT CONTRAST REASON FOR EXAM: Female, 72 years old. SOFT TISSUE MASS, PT HAS PAINFUL WOUND AREA MEDIAL MID TIB/FIB, PT CUT LEG ON PLASTIC CRATE 1 MONTH AGO-AREA NOW PAINFUL AND PAIN EXTENDS UP AND DOWN LEG TECHNIQUE: Standardized fat and water weighted pulse sequences were obtained in all 3 orthogonal planes, post contrast administration. IV 11ml clariscan was administered for the contrast portion of the examination. COMPARISON: None. FINDINGS: Mild subcutaneous edema on the medial side of the right calf from the mid shaft region of the tibia down to the ankle with mild induration of the subcutaneous fat as well consistent with cellulitis. There is no demonstrated muscle fiber or fascial injury or abscess. No abscess is seen in the subcutaneous fat. No marrow edema or cortical erosion or intramedullary lysis is seen in the osseous structures to suggest osteomyelitis. There is no abnormal enhancement of the bony structures. The left lower extremity/calf is included in the [id number] on several sequences in the bony or soft tissue structures are normal. Normal tibia and fibula, without a periosteal, cortical or cancellous marrow abnormality. Normal anterior, lateral, and posterior calf compartments, with normal muscles, crural fascia and intermuscular septa. There is no solid, cystic or lipomatous mass lesion of the subcutis adipose space. MRI/Lower Ext No Joint W/WO Cont IMPRESSION: 1. Mild subcutaneous edema on the medial side of the right calf from the mid shaft region of the tibia down to the ankle with mild induration of the subcutaneous fat as well consistent with cellulitis. There is no demonstrated muscle fiber or fascial injury or abscess. No abscess is seen in the subcutaneous fat. No marrow edema or cortical erosion or intramedullary lysis is seen in the osseous structures to suggest osteomyelitis. There is no abnormal enhancement of the bony structures. Electronically Signed: Richie Jackson MD at 14:29 EDT Reading Location ID and State: [facility] / [place] , Service support ,
== END | disposition home or self-care (01) ==
LOC: MRI 10:22
PROVIDERS: PCP Family Medicine Geriatric Medicine; Referring Provider Family Medicine Geriatric Medicine; Visit Provider Family Medicine Geriatric Medicine
DX: M79.89 Other specified soft tissue disorders (principal)
CPT/HCPCS: 73720; A9575

== ENCOUNTER → 2023-02-20 | Outpatient (CLI) | payer MEDICARE, OTHER, SELFPAY ==
[2023-02-20 17:23] LABS: Absolute Lymphocyte Count 1.73 X10^3/uL (0.83-4.51); Absolute Neutrophil Count 4.3 X10^3/uL (2.0-7.7); Basophil# 0.04 X10^3/uL; Basophil% 0.6 % (0-1); Eosinophil# 0.01 X10^3/uL; Eosinophils% 0.2 % (0-5); Hematocrit 42.6 % (37-47); Lymphocyte # 1.73 X10^3/ul (0.83-4.51); Mean Corp Hgb Conc 32.9 g/dL (32-36); Mean Corpuscular Hgb 32.8 pg (27.0-32.0); Mean Corpuscular Volume 99.8 fL (81-99); Mean Platelet Vol. 9.8 fl (6.2-12.0); Monocyte# 0.59 X10^3/uL; Monocyte% 8.9 % (0-10); NRBC Flagged by Analyzer 0 % (0-5); Neutrophil # 4.27 X10^3/uL (2.7-7.7); Neutrophil % 64.1 % (47-70); Platelet Count 347 K/mm3 (150-450); RBC Distribution Width CV 11.4 % (11.6-14.6); RBC Distribution Width SD 41.6 fl (35.1-43.9); Red Blood Count 4.27 M/mm3 (4.2-5.4); White Blood Count 6.7 K/mm3 (4.4-11.0)
[2023-02-20 17:42] LABS: Vitamin D,25 Hydroxy 54.2 ng/mL
[2023-02-20 17:53] LABS: ALB/GLOB Ratio 1.2 RATIO (0.9-2.4); AST(SGOT) 17 U/L (15-37); Alanine Aminotransfer ALT/SGPT 12 U/L (13-56); Albumin, Serum 4.1 g/dL (3.2-5.0); Alkaline Phosphatase 71 U/L (45-117); Anion Gap 7 (5-15); BUN 9 mg/dL (7-18); BUN/Creat Ratio 12.5 RATIO (10-20); Calcium,Total 8.6 mg/dL (8.5-10.1); Chloride 99 mmol/L (98-107); Creatinine, Serum 0.72 mg/dL (0.55-1.02); EST Glomerular Filtration Rate 85 mL/min (>60); Est Glom Filt Rate - Afr Amer 102 mL/min (>60); Globulin 3.3 g/dL (2.2-4.2); Glucose 90 mg/dL (74-106); Potassium 4.1 mmol/L (3.5-5.1); Protein, Total 7.4 g/dL (6.4-8.2); Sodium Level 135 mmol/L (136-145); Thyroid Stim Hormone (TSH) 0.97 uIU/mL (0.358-3.74)
== END | disposition home or self-care (01) ==
LOC: POLAB3 16:04
PROVIDERS: PCP Family Medicine Geriatric Medicine; Visit Provider Family Medicine Geriatric Medicine
DX: R53.83 Other fatigue (principal); E55.9 Vitamin D deficiency, unspecified
CPT/HCPCS: 36415; 80053; 82306; 84443; 85025

== ENCOUNTER → 2023-07-07 | Outpatient (CLI) | payer MEDICARE, OTHER, SELFPAY ==
--- NOTE | 2023-07-07 08:03 | MRI_ITS ---
STUDY: MRI LUMBAR SPINE WITHOUT CONTRAST REASON FOR EXAM: Female, 73 years old. Low back pain. Disc disease. TECHNIQUE: Standardized fat and water weighted pulse sequences were obtained in the sagittal and axial planes. COMPARISON: MRI lumbar spine without contrast 12/17/2021. FINDINGS: T10-T11: (Sagittal only). Schmorl''s nodes in the central vertebral endplates. Normal endplates. The normal disc height and morphology. No ventral extradural defect. Normal central canal and bilateral intervertebral neural foramina. T11-T12: Mild left-sided central compression fracture of the T11 inferior endplate. Mild old anterior wedge compression fracture of the upper T12 vertebral contains PMMA passed from interval kyphoplasty. No ventral extradural defect. Normal central canal and bilateral lateral recesses. No significant facet arthropathy. Normal bilateral intervertebral neural foramina. T12-L1: Pronounced disc space narrowing. No ventral extradural defect. No significant facet arthropathy. Minimal central canal and bilateral lateral recesses. Normal bilateral intervertebral foramina. Normal lumbar lordosis. There is no substantial scoliosis. Normal conus medullaris that terminates at the lower L1 vertebral body level. L1-2: Pronounced disc space height narrowing. Minimal left-sided ventral extradural defect is posterior bulging annulus. Normal central canal and bilateral lateral recesses. No significant facet arthropathy. Normal bilateral intervertebral neural foramina. L2-3: Normal endplates. Mild left-sided disc space narrowing. Mild bilateral axillary defect in posterior bulging annulus. L3 pedicular screws and rods causing central distortion artifacts on the facet joints. Normal central canal and bilateral lateral recesses. Normal bilateral intervertebral neural foramina. L3-4: Normal endplates. Mild disc space narrowing. Minimal degenerative anterolisthesis of L3 on L4 is unchanged. Pedicular screws and rods causing significant distortion artifacts obscuring the facet joints. Improvement of moderate flattening central canal stenosis, now capacious central canal. Normal bilateral lateral recesses. Normal bilateral intervertebral neural foramina. L4-5: Normal endplates. Normal disc height and morphology. No significant facet arthropathy. Improvement of mild central canal stenosis, now capacious. Normal bilateral recesses. Small degenerative cyst underneath the left posterior ligamentum flavum. Normal bilateral intervertebral neuroforamina. L5-S1: Normal endplates. Normal disc height, hydration and morphology. Posterolateral fusion of the facet joints. Capacious central canal and bilateral lateral recesses. Normal bilateral intervertebral neural foramina. Normal visualized sacral ala. Normal visualized paraspinous soft tissue structures. MRI/Spine Lumbar (Routine) IMPRESSION: 1. Improvement of moderate flattening central canal stenosis at L3-L4 disc level, now capacious. Minimal degenerative anterolisthesis of L3 on L4 is unchanged. 2. Degenerative cyst underneath the left posterior ligamentum flavum at L4-L5 disc level is a new finding. 3. Interval kyphoplasty of old T12 anterior wedge compression fracture. 4. No MRI evidence of lumbar extruded disc fragment, disc protrusion, spinal stenosis or nerve root displacement. Electronically Signed: Faisal Badillo MD at 8:30 EDT ,
== END | disposition home or self-care (01) ==
LOC: MRI 07:59
PROVIDERS: PCP Family Medicine Geriatric Medicine; Referring Provider Family Medicine Geriatric Medicine; Visit Provider Family Medicine Geriatric Medicine
DX: M51.9 Unspecified thoracic, thoracolumbar and lumbosacral intervertebral disc disorder (principal); M54.50 Low back pain, unspecified
CPT/HCPCS: 72148

== ENCOUNTER → 2023-08-29 | Outpatient (CLI) | payer MEDICARE, OTHER, SELFPAY ==
[2023-08-29 13:15] LABS: Absolute Lymphocyte Count 1.32 X10^3/uL (0.83-4.51); Absolute Neutrophil Count 3.8 X10^3/uL (2.0-7.7); Basophil# 0.05 X10^3/uL; Basophil% 0.9 % (0-1); Eosinophil# 0.01 X10^3/uL; Eosinophils% 0.2 % (0-5); Hemoglobin 14.5 g/dL (12.0-15.0); Lymphocyte # 1.32 X10^3/ul (0.83-4.51); Lymphocyte % 23.1 % (19-41); Mean Corp Hgb Conc 33.7 g/dL (32-36); Mean Corpuscular Hgb 33.1 pg (27.0-32.0); Mean Corpuscular Volume 98.2 fL (81-99); Mean Platelet Vol. 9.5 fl (6.2-12.0); Monocyte# 0.54 X10^3/uL; Monocyte% 9.5 % (0-10); NRBC Flagged by Analyzer 0 % (0-5); Neutrophil # 3.77 X10^3/uL (2.7-7.7); Neutrophil % 65.9 % (47-70); Platelet Count 329 K/mm3 (150-450); RBC Distribution Width CV 11.6 % (11.6-14.6); RBC Distribution Width SD 42.2 fl (35.1-43.9); Red Blood Count 4.38 M/mm3 (4.2-5.4); White Blood Count 5.7 K/mm3 (4.4-11.0)
[2023-08-29 13:34] LABS: Vitamin D,25 Hydroxy 44.9 ng/mL
[2023-08-29 13:39] LABS: ALB/GLOB Ratio 1.1 RATIO (0.9-2.4); AST(SGOT) 16 U/L (15-37); Alanine Aminotransfer ALT/SGPT 18 U/L (13-56); Albumin, Serum 3.8 g/dL (3.2-5.0); Alkaline Phosphatase 64 U/L (45-117); Anion Gap 6 (5-15); BUN 13 mg/dL (7-18); BUN/Creat Ratio 12.9 RATIO (10-20); Calcium,Total 9.2 mg/dL (8.5-10.1); Chloride 101 mmol/L (98-107); Creatinine, Serum 1.01 mg/dL (0.55-1.02); EST Glomerular Filtration Rate 57 mL/min (>60); Est Glom Filt Rate - Afr Amer 69 mL/min (>60); Globulin 3.5 g/dL (2.2-4.2); Glucose 91 mg/dL (74-106); Potassium 4.1 mmol/L (3.5-5.1); Protein, Total 7.3 g/dL (6.4-8.2); Sodium Level 135 mmol/L (136-145); Thyroid Stim Hormone (TSH) 0.63 uIU/mL (0.358-3.74)
== END | disposition home or self-care (01) ==
LOC: LAB 12:41
PROVIDERS: PCP Family Medicine Geriatric Medicine; Referring Provider Family Medicine Geriatric Medicine; Visit Provider Family Medicine Geriatric Medicine
DX: R53.83 Other fatigue (principal); E55.9 Vitamin D deficiency, unspecified
CPT/HCPCS: 36415; 80053; 82306; 84443; 85025

== ENCOUNTER 2023-11-27 13:30 | Outpatient (RCR) | payer MEDICARE, OTHER, SELFPAY ==
--- NOTE | 2023-09-11 13:14 | HP.PTEVAL_ITS ---
Patient's Visit Information Visit Information Visit Information: TANYA RODRIGUEZ is a 73 year old F referred to Physical Therapy by Dr. Anders Lundberg MD with a diagnosis of LBP/L sided sciatica. Date of Evaluation: 09/10/23 Physical Therapist: MICHI Perez Visit Plan Frequency: 2x /Week Duration: 2 Months Plan: 2X/ 8 weeks for neutral spine core stability, B hip flexor stretching, glut strength, hip strength, gait training, posture, foam rolling with DN and HEP Subjective Subjective: For 6 years she has had pain in hip and groin area and got hip surgery. In 2019 she had a THR on the L. 3 years later (1 year ago) she got back surgery where they fused her back and not sure of the levels. . She still has the groin pain. She saw Dr Osuna and saw a cyst on the bottom of the spine and there is a narrowing of the spinal column where they just did her surgery. She also has scoliosis Current Sx.... 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 By evening (5pm regina) it will start getting worse and that is the sharp pain when she goes to do something like lift her leg, goes up stairs etc. IT is a dull pain until evening when it becomes a sharp pain. Everyone is telling her that the pain is coming from her back. She has occ pain when she sits (piriformis a jay). She still can not cross her legs due to the Hip replacement. She retired in Apr. She is moving around all day long and not prolonged sitting or standing. Prolonged sitting and standing are worse for her. 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 She feels tight around her hip. She feels like it is sharp nerve pain. She takes Gabapentin for the nerve pain but it puts her out. She stretches at home (wall calf stretch). Dr Gonzalez wants more surgery and wants to fuse her more. Pain Back pain: Pain Intensity (Out of 10): 10 L hip pain: Pain Intensity (Out of 10): 2 Pain Intensity Range: 10 Objective Objective: Gait: Decrease stance time on the L, decreased trunk rotation, wider MARTI Able to walk on heels and toes Trunk AROM: flexion 50, ext 25, ROT B 25, SB B 50 LE MMT: R hip flex 8.6 and L 5.1 R knee ext 11.2 and L 7.9 R knee flex 4.3 and L 4.2 R hip and 5.6 and L 3.9 Bridge (slight increase back pain) Very tight B HS (L worse than R) Very tight hip flexor (L worse than R) Pt felt her L hip with isometric hip abd/add Prone to MARK X 30 sec X 3 could feel a good hip flexor stretch Balance/Special Test Scores Oswestry Low Back Score: 13 Goals Goal 1:: I HEP Goal Time Frame: 6-8 Weeks Goal 2:: Decrease pain in L hip by 50% Goal Time Frame: 6-8 Weeks Goal 3:: Be able to do a standing hip march on the L without pain Goal Time Frame: 6-8 Weeks Goal 4:: Increase LE strength (at the time of the eval: LE MMT: R hip flex 8.6 and L 5.1 R knee ext 11.2 and L 7.9 R knee flex 4.3 and L 4.2 R hip and 5.6 and L 3.9). Goal Time Frame: 6-8 Weeks Rehabilitation Potential Rehabilitation Potential: Fair Anticipated Interventions Patient/Client Instruction: Educate patient on: Condition and Plan of Care For the Purpose of:: To decrease pain, To increase ROM, To improve nutrient delivery to tissue, To improve muscle performance and motor function, To improve ability to perform ADL's, To increase tolerance to activity/condition/position, To improve performance and independence with ADL's, To improve ability of physical actions for home/community/work/leisure, To improve gait and locomotor functions, To improve health of tissue, To decrease soft tissue restriction, To increase flexibility/ROM, To improve balance and To improve safety with gait Therapeutic Exercise to Include: Strength training, Endurance training, Balance training, Body mechanics, Postural training, Flexibilty training, Gait and locomotor training, Neuromotor development, Active ROM, Dynamic Lumbar Stabilization and Scapular Strength/Stabilization For the Purpose of:: To decrease pain, To decrease swelling/inflammation, To improve muscle performance and motor function, To improve ability to perform ADL's, To increase tolerance to activity/condition/position, To improve performance and independence with ADL's, To decrease level of supervision to perform tasks, To improve gait and locomotor functions, To improve health of tissue, To decrease soft tissue restriction and To increase flexibility/ROM Functional Training to Include: Gait training For the Purpose of:: To improve gait and locomotor functions and To improve safety with gait Manual Therapy Techniques to Include: Soft tissue mobilization Comment: dn For the Purpose of:: To decrease pain, To increase ROM, To improve nutrient delivery to tissue, To improve muscle performance and motor function, To improve health of tissue, To decrease soft tissue restriction and To increase flexibility/ROM Text: Thank you for the opportunity to evaluate your patient. For Medicare and Medicare HMO plans, please review the plan of care and approve it. It will need to be FAXED BACK to us at [phone] for Medicare purposes. For Medicare only, by signing this I certify the plan of care. Please let me know if there are questions or concerns regarding this plan of care. Physician Signature: Date:
--- NOTE | 2024-02-06 11:19 | HP.PTDCNRP_ITS ---
Patient Information Patient Information: TANYA RODRIGUEZ was seen in my office for initial evaluation on 09/10/23. The following Plan of Care was established for this patient: POC Established Initial Frequency: 2x /Week Initial Duration: 2 Months Anticipated Interventions Patient/Client Instruction: Educate patient on: Condition and Plan of Care For the Purpose of:: To decrease pain, To increase ROM, To improve nutrient delivery to tissue, To improve muscle performance and motor function, To improve ability to perform ADL's, To increase tolerance to activity/condition/position, To improve performance and independence with ADL's, To improve ability of physical actions for home/community/work/leisure, To improve gait and locomotor functions, To improve health of tissue, To decrease soft tissue restriction, To increase flexibility/ROM, To improve balance and To improve safety with gait Therapeutic Exercise to Include: Strength training, Endurance training, Balance training, Body mechanics, Postural training, Flexibilty training, Gait and locomotor training, Neuromotor development, Active ROM, Dynamic Lumbar Stabilization and Scapular Strength/Stabilization For the Purpose of:: To decrease pain, To decrease swelling/inflammation, To improve muscle performance and motor function, To improve ability to perform AD L's, To increase tolerance to activity/condition/position, To improve performance and independence with ADL's, To decrease level of supervision to perform tasks, To improve gait and locomotor functions, To improve health of tissue, To decrease soft tissue restriction and To increase flexibility/ROM Functional Training to Include: Gait training For the Purpose of:: To improve gait and locomotor functions and To improve safety with gait Manual Therapy Techniques to Include: Soft tissue mobilization Comment: dn For the Purpose of:: To decrease pain, To increase ROM, To improve nutrient delivery to tissue, To improve muscle performance and motor function, To improve health of tissue, To decrease soft tissue restriction and To increase flexibility/ROM Last Seen Last Seen: This patient was last seen in our office 11/22/23. Pertinent comments regarding their Physical therapy will appear below: DC PT At this point I will be discontinuing this patient from physical therapy. I would be happy to see this patient again in the future if found appropriate by the physician. Thank you! Selina Gilliland, MPT Balance/Gait/Functional tests Balance/Special Test Scores Oswestry Low Back Score: 13
== END 2023-11-27 19:00 | disposition home or self-care (01) ==
LOC: PT 13:30
PROVIDERS: PCP Family Medicine Geriatric Medicine; Referring Provider Family Medicine Geriatric Medicine; Visit Provider Family Medicine Geriatric Medicine
DX: M54.32 Sciatica, left side (principal); M54.50 Low back pain, unspecified
CPT/HCPCS: 97110; 97162

== ENCOUNTER → 2023-12-03 | Outpatient (CLI) | payer MEDICARE, OTHER, SELFPAY ==
--- NOTE | 2023-12-03 11:55 | CT_ITS ---
STUDY: CT ABDOMEN AND PELVIS WITH CONTRAST REASON FOR EXAM: Female, 73 years old. ABD PAIN RADIATION DOSAGE (If Supplied By Facility): CTDIvol = ( 18.26 ) mGy, DLP = ( 392.22 ) mGycm TECHNIQUE: Transaxial images were obtained from the dome of the diaphragm to the symphysis pubis with oral contrast. Oral and amp; IV Gastrografin and amp; 100mL Isovue-300 was administered. Sagittal and coronal images were reconstructed. Individualized dose optimization techniques were used for this CT. COMPARISON: Comparison is made with prior study January 12, 2020. FINDINGS: Minimal scarring at the lung bases. The visualized portions of the heart are within normal limits. Normal liver. Normal gallbladder and extrahepatic biliary system. There is evidence of a subcapsular hematoma along the lateral aspect of the spleen. Follow-up recommended. Normal pancreas. Normal bilateral adrenal glands. Normal right kidney. Normal left kidney. Normal visualized stomach. Normal small intestine. Normal colon. There is non-visualization of the appendix. Normal abdominal aorta. Normal inferior vena cava. Normal retroperitoneum. Normal urinary bladder. Dense fluid is seen within the pelvis. Blood within the pelvis should be ruled out from the perisplenic hematoma. Findings suggestive of a prior hysterectomy. Normal abdominal wall. Prior fusion at the L2-L3 level. Vertebroplasty and loss of height of the T11 vertebrae. Prior left total hip replacement. CT/Abdomen/Pelvis WITH Contrast IMPRESSION: There is evidence of a subcapsular hematoma along the lateral aspect of the spleen. Dense free fluid is seen in the cul-de-sac suggestive of blood. Clinical correlation recommended. Electronically Signed: Matti Sevilla MD at 14:58 EDT ,
[2023-12-03 14:21] LABS: Absolute Lymphocyte Count 1.01 X10^3/uL (0.83-4.51); Absolute Neutrophil Count 5.8 X10^3/uL (2.0-7.7); Basophil# 0.03 X10^3/uL; Basophil% 0.4 % (0-1); Hematocrit 36.9 % (37-47); Lymphocyte # 1.01 X10^3/ul (0.83-4.51); Lymphocyte % 13.4 % (19-41); Mean Corp Hgb Conc 32.5 g/dL (32-36); Mean Corpuscular Hgb 31.7 pg (27.0-32.0); Mean Corpuscular Volume 97.4 fL (81-99); Mean Platelet Vol. 9.6 fl (6.2-12.0); Monocyte# 0.63 X10^3/uL; Monocyte% 8.4 % (0-10); NRBC Flagged by Analyzer 0 % (0-5); Neutrophil # 5.83 X10^3/uL (2.7-7.7); Neutrophil % 77.3 % (47-70); Platelet Count 376 K/mm3 (150-450); RBC Distribution Width CV 11.5 % (11.6-14.6); RBC Distribution Width SD 41.1 fl (35.1-43.9); Red Blood Count 3.79 M/mm3 (4.2-5.4); White Blood Count 7.5 K/mm3 (4.4-11.0)
[2023-12-03 15:03] LABS: ALB/GLOB Ratio 0.9 RATIO (0.9-2.4); AST(SGOT) 16 U/L (15-37); Alanine Aminotransfer ALT/SGPT 14 U/L (13-56); Albumin, Serum 3.7 g/dL (3.2-5.0); Alkaline Phosphatase 70 U/L (45-117); Amylase 36 U/L (25-115); Anion Gap 15 (5-15); BUN 6 mg/dL (7-18); BUN/Creat Ratio 9.9 RATIO (10-20); Calcium,Total 8.9 mg/dL (8.5-10.1); Chloride 97 mmol/L (98-107); Creatinine, Serum 0.61 mg/dL (0.55-1.02); EST Glomerular Filtration Rate 103 mL/min (>60); Est Glom Filt Rate - Afr Amer 124 mL/min (>60); Glucose 77 mg/dL (74-106); Lipase 15 U/L (13-75); Potassium 3.8 mmol/L (3.5-5.1); Protein, Total 7.7 g/dL (6.4-8.2); Sodium Level 132 mmol/L (136-145)
== END | disposition home or self-care (01) ==
LOC: CT 11:49
PROVIDERS: PCP Family Medicine Geriatric Medicine; Visit Provider Family Medicine Geriatric Medicine
DX: R53.83 Other fatigue (principal); R10.9 Unspecified abdominal pain; K85.90 Acute pancreatitis without necrosis or infection, unspecified; N39.0 Urinary tract infection, site not specified
CPT/HCPCS: 36415; 74177; 80053; 82150; 83690; 85025; 87086

== ENCOUNTER 2023-12-17 17:13 | Outpatient (CLI) | payer MEDICARE, OTHER, SELFPAY | END 2023-12-17 23:59 | disposition home or self-care (01) | LOC: POLAB3 17:14 | PROVIDERS: PCP Family Medicine Geriatric Medicine; Visit Provider Family Medicine Geriatric Medicine | DX: R68.83 Chills (without fever) (principal) | CPT/HCPCS: 87631 ==

== ENCOUNTER → 2023-12-26 | Outpatient (CLI) | payer MEDICARE, OTHER, SELFPAY ==
--- NOTE | 2023-12-26 15:45 | RAD_ITS ---
STUDY: X-RAY CHEST REASON FOR EXAM: Female, 73 years old. WHEEZING TECHNIQUE: Frontal and lateral views of the chest. COMPARISON: 10/15/2013 FINDINGS: The lungs are clear and expanded. There is no demonstrated pleural abnormality. Normal size heart. Normal mediastinum and bharat. Normal visualized pulmonary arteries. Normal visualized aortic arch and descending thoracic aorta. There is treated compression fracture at T12. Normal visualized ribs, clavicles, and shoulders. There is no demonstrated abnormality of the visualized soft tissue structures of the upper abdomen. RAD/Chest PA and Lateral IMPRESSION: Normal x-ray examination of the chest. Electronically Signed: Enrique Menjivar MD at 22:27 EDT ,
== END | disposition home or self-care (01) ==
LOC: RAD 15:39
PROVIDERS: PCP Family Medicine Geriatric Medicine; Referring Provider Family Medicine Geriatric Medicine; Visit Provider Family Medicine Geriatric Medicine
DX: R06.2 Wheezing (principal)
CPT/HCPCS: 71046

== ENCOUNTER → 2024-02-25 | Outpatient (CLI) | payer MEDICARE, OTHER, SELFPAY ==
[2024-02-25 13:38] LABS: Absolute Lymphocyte Count 1.12 X10^3/uL (0.83-4.51); Basophil# 0.03 X10^3/uL; Basophil% 0.6 % (0-1); Eosinophil# 0.01 X10^3/uL; Eosinophils% 0.2 % (0-5); Hematocrit 41.5 % (37-47); Hemoglobin 13.6 g/dL (12.0-15.0); Lymphocyte # 1.12 X10^3/ul (0.83-4.51); Lymphocyte % 24.2 % (19-41); Mean Corp Hgb Conc 32.8 g/dL (32-36); Mean Corpuscular Hgb 30.5 pg (27.0-32.0); Mean Platelet Vol. 9.5 fl (6.2-12.0); Monocyte# 0.51 X10^3/uL; NRBC Flagged by Analyzer 0 % (0-5); Neutrophil # 2.95 X10^3/uL (2.7-7.7); Neutrophil % 63.8 % (47-70); Platelet Count 395 K/mm3 (150-450); RBC Distribution Width CV 12.5 % (11.6-14.6); RBC Distribution Width SD 42.8 fl (35.1-43.9); Red Blood Count 4.46 M/mm3 (4.2-5.4); White Blood Count 4.6 K/mm3 (4.4-11.0)
[2024-02-25 14:05] LABS: Vitamin D,25 Hydroxy 44.9 ng/mL
[2024-02-25 14:09] LABS: ALB/GLOB Ratio 1.2 RATIO (0.9-2.4); AST(SGOT) 16 U/L (15-37); Alanine Aminotransfer ALT/SGPT 15 U/L (13-56); Albumin, Serum 4.1 g/dL (3.2-5.0); Alkaline Phosphatase 54 U/L (45-117); Anion Gap 8 (5-15); BUN 10 mg/dL (7-18); BUN/Creat Ratio 9.9 RATIO (10-20); Calcium,Total 9.1 mg/dL (8.5-10.1); Chloride 103 mmol/L (98-107); Creatinine, Serum 1.01 mg/dL (0.55-1.02); EST Glomerular Filtration Rate 57 mL/min (>60); Est Glom Filt Rate - Afr Amer 69 mL/min (>60); Globulin 3.3 g/dL (2.2-4.2); Glucose 81 mg/dL (74-106); Potassium 3.6 mmol/L (3.5-5.1); Protein, Total 7.4 g/dL (6.4-8.2); Sodium Level 137 mmol/L (136-145)
== END | disposition home or self-care (01) ==
LOC: POLAB3 13:18
PROVIDERS: PCP Family Medicine Geriatric Medicine; Visit Provider Family Medicine Geriatric Medicine
DX: R53.83 Other fatigue (principal); E55.9 Vitamin D deficiency, unspecified
CPT/HCPCS: 36415; 80053; 82306; 84443; 85025

== ENCOUNTER → 2024-03-14 | Outpatient (CLI) | payer MEDICARE, OTHER, SELFPAY | END | disposition home or self-care (01) | LOC: LABSPEC 13:36 | PROVIDERS: PCP Family Medicine Geriatric Medicine; Referring Provider Family Medicine Geriatric Medicine; Visit Provider Family Medicine Geriatric Medicine | DX: L03.116 Cellulitis of left lower limb (principal); S81.802A Unspecified open wound, left lower leg, initial encounter; Z22.39 Carrier of other specified bacterial diseases; X58.XXXA Exposure to other specified factors, initial encounter | CPT/HCPCS: 87070; 87077; 87186; 87205; 87640 ==

== ENCOUNTER → 2024-04-01 | Outpatient (CLI) | payer MEDICARE, OTHER, SELFPAY | END | disposition home or self-care (01) | LOC: LAB.FUTURE 04-03 15:49 | PROVIDERS: PCP Family Medicine Geriatric Medicine; Visit Provider Family Medicine Geriatric Medicine | DX: S81.802A Unspecified open wound, left lower leg, initial encounter (principal); X58.XXXA Exposure to other specified factors, initial encounter | CPT/HCPCS: 87070; 87075; 87205 ==

== ENCOUNTER 2024-04-08 10:45 | Outpatient (RCR) | payer MEDICARE, OTHER, SELFPAY ==
[2024-03-18 13:38] VITALS: BP 154/48; PULSE 67; RESP 18; TEMP 35.8; BMI 19.7
--- NOTE | 2024-03-18 20:07 | HP.PCM_ITS ---
History of Present Illness Date of Service: 03/18/24 Chief Complaint: Bilateral lower extremity traumatic wounds History of Wound: This is a 74-year-old female who presented with traumatic wounds to both lower extremities. The wounds are located on the pretibial surfaces bilaterally. The wound on the right pretibial surface occurred approximately 1 month prior to presentation, resulting when the patient bumped her leg against a trash bin. The wound has failed to heal appropriately. More recently, approximately 10 days prior to presentation, the patient dropped a box of spaghetti noodles onto the left pretibial surface, resulting in a wound which has failed to heal. The patient was seen by her primary care physician, Dr. Lundberg, 4 days prior to presentation, where a course of Keflex and doxycycline were initiated. Suspecting cellulitis, swab cultures were also obtained, the results of which were negative for growth. The patient is mobile and active. She denies swelling in her legs. She sleeps on a flat surface at night. She denies a history of thrombophlebitis. The patient denies a history of congestive heart failure, myocardial infarction, diabetes mellitus, cerebrovascular accident, hypertension, renal disease, and pulmonary disease. She has a history of hypothyroidism. A limited venous duplex examination is noted to have been performed on October 26, 2022, examining only the right lower extremity, and revealing no evidence of thrombophlebitis. Valvular competence was not fully evaluated. [facility] Medical History Traumatic open wound of right lower leg Traumatic open wound of left lower leg Non-pressure chronic ulcer of left lower leg with fat layer exposed Non-pressure chronic ulcer of right lower leg with fat layer exposed Traumatic open wound of right lower leg with delayed healing Traumatic open wound of left lower leg with delayed healing Wears glasses Anxiety Alcohol use History of steroid therapy Easy bruising Back pain Injury of back Migraine headache Syncope History of IBS Former smoker Leg cramps History of edema History of stress test Cataracts, bilateral Arthritis Anemia Vitamin D deficiency, unspecified Hypothyroidism Home Medications ?Medication ?Instructions ?Recorded ?Last Taken ?Type lidocaine 5 % topical patch 2 patch topical DAILY 05/03/17 1 Day Ago History ~09/21/17 meloxicam 15 mg tablet 15 mg PO QDAY 05/03/17 09/22/17 History doxepin 10 mg capsule 10 mg PO QHS 12/16/19 Unknown History folic acid 400 mcg tablet 0.4 mg PO DAILY@0800 12/16/19 Unknown History linaclotide 145 mcg capsule 145 mcg PO DAILY 12/16/19 Unknown History loratadine 10 mg tablet 10 mg PO DAILY 12/16/19 Unknown History estradiol 0.1 mg/24 hr semiweekly 2 patch transdermal MOTH 03/15/20 Unknown History transdermal patch (Bessie) acetaminophen 500 mg tablet 1,000 mg PO BID 01/06/22 Unknown History vitamin [id number] B1 100 mg-1 1 ml IM .QMO 01/06/22 Unknown History mg/mL intramuscular solution gabapentin 100 mg capsule 300 mg PO BID 07/19/23 Unknown History cephalexin 500 mg capsule 500 mg PO BID 03/18/24 Unknown History doxycycline hyclate 100 mg tablet 100 mg PO BID 03/18/24 Unknown History levothyroxine 50 mcg tablet 50 mcg PO DAILY 03/18/24 Unknown History Allergy/AdvReac Type Severity Reaction Status Date / Time No Known Allergies Allergy Verified 07/19/23 14:03 Family History Mother Rheumatoid arthritis Father Pancreatic cancer Cancer Grandfather Myocardial infarction Grandmother Thyroid disorder Surgical History Status post spinal disc removal History of tonsillectomy History of lumbar spinal fusion History of total hip replacement History of hysterectomy History of cervical discectomy Social History household members: spouse Smoking Status: Never smoker alcohol intake: current alcohol intake frequency: a few times a week Alcohol type: wine substance use type: does not use what type of physical activity do you participate in: other details: physical therapy frequency: 1-2 times per week Vital Signs Vital Signs Vital Signs: 03/18/24 13:38 Temperature 96.4 F L Temperature Source Temporal Pulse Rate 67 Respiratory Rate 18 Blood Pressure 154/48 H Blood Pressure Mean 83 Blood Pressure Source Monitor Blood Pressure Position Semi-Fowlers Blood Pressure Location Left Arm Weight Weight: 101 lb Body Mass Index (BMI) 19.7 Physical Exam Const alert, oriented x3, no apparent distress, average body habitus and no limitations Constitutional Narrative: The patient's BMI is 19.7. General Appearance: cooperative, comfortable, well kempt and well developed Orientation / Consciousness: awake, oriented to person, oriented to place and oriented to time Exam Limitations: no limitations HEENT normocephalic, head/scalp atraumatic and hearing grossly normal bilaterally Head and Scalp: normal to inspection, normocephalic and atraumatic Face and Sinus: normal facial exam Nose: external nose normal External Ear: external ears normal Eyes EOMs intact bilaterally General Eye: normal appearance of both eyes Neck full ROM Resp normal respiratory effort, normal air movement, no retractions and no use of accessory muscles Effort and Inspection: able to speak in complete sentences Extremity no calf tenderness General Extremity: Negative for clubbing or cyanosis Skin Wound Narrative: The patient's lower extremities appear warm and well-perfused. Pedal pulses are easily palpable bilaterally. There is no significant swelling or edema in the patient's lower extremities. A wound is noted on the right pretibial surface. It appears to be full-thickness in nature. It is generally pink and healthy in appearance, with a mild amount of bioburden. Dimensions are documented elsewhere. There is no sign of infection or cellulitis. Wound margins are well beveled. A wound is also noted in the left pretibial surface. The wound is full-thickness in nature. There is a moderate amount of bioburden. Dimensions are documented elsewhere there is no sign of infection or cellulitis. The inferior margin of the wound demonstrates a large, nonviable dermal skin flap which was created at the time of the patient's trauma. The base of the wound is generally pink and healthy in appearance. Hair: normal Neuro oriented x3, CN's II-XII intact bilaterally, moves all extremities, no focal motor deficits and no sensory deficits noted Sensorium / Orientation: awake, alert, oriented to person, oriented to place and oriented to time Psych Appearance: grossly normal and appropriate Attitude: calm Activity / Motor Behavior: appropriate eye contact Speech: normal speech Mood & Affect: euthymic mood Thought Process: normal thought process Thought Content: normal thought content Attention / Concentration: attention grossly intact Debridement Note Debridement Note Wound debrided: Left pretibial wound Laterality: Left Type of Debridement: Excisional debridement Anesthesia Used: 5% Lidocaine Gel and Cetacaine Depth: Down to and including healthy tissue and in the subcutaneous layer Percentage of wound debrided: 100 Instrument Used: 5mm curette, Forceps and - (Scissors) Tissue Removed: Bioburden and nonviable, dermal skin flap Severity: Fat Layer Exposed Amount of bleeding with debridement: Mild Bleeding Controlled with: Compression and gauze Patient tolerated procedure: Patient tolerated procedure well Debridement Free Text: An excisional debridement was performed in standard fashion. However, which, nonviable dermal skin flap was present at the inferior portion of the patient's wound, the result of the initial traumatic injury. Therefore, using a sterile forceps and scissors, the large, nonviable skin flap was sharply excised. Post-Debridement Measurements and Additional Note: Post-Debridement Measurements/Treatment WC - Nurse 1 - General Ulcer Assessment Start: 03/18/24 13:31 Freq: Status: Active Protocol: QUIANA Activity Type Activity Date Activity User E-sign Co-sign Detail Recorded Client Recorded Date Recorded By Document 03/18/24 13:38 RB [id number] 03/18/24 13:50 RB 03/18/24 13:38 - Today's Visit Information Type of service Initial Visit Arrival Mode Ambulatory Transfer Assistance None Patient Identification Verified (Name & Yes ) Patient Requires Transmission-Based No Precautions Height and Weight Height 5 ft Weight 101 lb Weight in Pounds 101.0 lbs Body Mass Index (BMI) 19.7 BMI Classification Normal BSA - Millie 1.40 Vital Signs Temperature (97.8 F-99.1 F) 96.4 F L Temperature Source Temporal Pulse Rate (60-100) 67 Pulse Location Monitor Respiratory Rate (12-18) 18 Respiratory rate source Observation Blood Pressure (90/60-120/80) 154/48 H Blood Pressure Mean 83 Source Monitor Position Semi-Fowlers Blood Pressure Location Left Arm History Since Last Visit- (Skip if this is Patient's initial visit) Have you changed medications since your No last visit? Any new allergies or adverse reactions No Had a fall/change in ADL's that may No increase risk of falls Signs or symptoms of abuse and/or No neglect since last visit Have you been in the hospital since your No last visit? Has dressing in place as prescribed Yes Has compression in place as prescribed No Has offloadiing in place as prescribed No Experienced any changes in pain level or No management Pain Scale: 0-10 Numeric Is Patient Pain Free? No bilat LE -Description Dull,Throbbing, Aching -Intensity 3 -Duration (hours) Acute -Pain Behavior Withdrawal from Touch -Pain Aggravating Factors Exercise/ Activity, Debridement -Alleviating Factors/Interventions Medication -Effectiveness of Alleviating Factor/ Minimally Intervention effective Lower Extremity Assessment/ Foot Assessment/ Toe Nail Assessment Right -Posterior Tibial Palpable Yes -Dorsalis Pedis Palpable Yes -Extremity Color Normal -Hair Growth on Legs Yes -Hair Growth on Toes No -Temperature of Extremity Warm -Capillary Refill Less than 3 Seconds -Dependent Rubor No -Blanched when Elevated No -Lipodermatosclerosis No -Other Deformity No -Prior Foot Ulcer No -Charcot Joint No -Prior Amputation No -Thick No -Discolored No -Deformed No -Improper Length & Hygeine Yes Left -Posterior Tibial Palpable Yes -Dorsalis Pedis Palpable Yes -Extremity Color Normal -Hair Growth on Legs Yes -Hair Growth on Toes No -Temperature of Extremity Warm -Capillary Refill Less than 3 Seconds -Dependent Rubor No -Blanched when Elevated No -Lipodermatosclerosis No -Other Deformity No -Prior Foot Ulcer No -Charcot Joint No -Prior Amputation No -Thick No -Discolored No -Deformed No -Improper Length & Hygeine Yes Neuropathy Assessment Feet - Top Side and Bottom <Entered> (a) Communication Assessment Preferred language Citizen Of [place] In Flight Refueling System Repairer Required No Right Hearing Abillity Normal Left Hearing Abillity Normal Visual Assistive Devices Glasses Teaching Assessment Preferences Verbal,Written, Demonstration Barriers to Learning None Readiness To Learn Good Willingness to Engage in Self Management Med Activies Readiness to Engage in Self Management Med Activities Anxiety Level Calm Cooperation Cooperative Perception Coherent Interest in Health Problem Asks Questions Education Importance Acknowledges Need Does Patient Smoke tobacco or other No substances Smoking Status Never smoker Is Patient Diabetic No Functional Assessment Recent Decline in Ability to Perform Denies Any Declines Assistive Device With Patient No Culture/Scientology/Automatic Lathe Setter Cultural/Scientology Needs that may affect No Treatment Plan Would you allow our hospital textiles and clothing teacher to No meet you for the purpose of spiritual/ emotional support? Automatic Lathe Setter to contact place of sikh No (a) 1 - + throughout WC - Nurse 1 - General Ulcer Measurement Start: 03/18/24 13:31 Freq: Status: Active Protocol: Activity Type Activity Date Activity User E-sign Co-sign Detail Recorded Client Recorded Date Recorded By Document 03/18/24 13:38 RB [id number] 03/18/24 13:50 RB 03/18/24 13:38 Wound Center Nurse 1 2. LLE ant -Combined with other wound No -Current Size (cm) - Length 3 -Current Size (cm) - Width 3.4 -Current Size (cm) - Depth 0.1 -Total Square Cm 10.2 -Photo Taken Yes -Tunneling No -Undermining/Tunneling No -Circular Undermining No -Exudate Amt Medium -Exudate Type Serosanguineous -Wound Margin Distinct, Outline Attached -Granulation Amt Medium (34-66%) -Granulation Quality [place] -Slough/Fibrin Yes -Necrosis Amt Medium (34-66%) -Necrotic Tissue Type Adherent Slough -Structure Exposed N/A -Texture (Joyce-wound Skin Appearance) Assessed, Friable -Moisture (Joyce-wound Skin Appearance) Assessed -Color (Joyce-wound Skin Appearance) Assessed -Temperature (Joyce-wound Skin No Abnormality Appearance) (Pt Warm) -Tenderness on Palpation (Joyce-wound No Skin Appearance) -Ulcer Cleansing Wound Cleanser -Foul Odor after Cleansing No -Anesthetic Used 5% Lidocaine Gel 1. RLE ant -Combined with other wound No -Current Size (cm) - Length 0.5 -Current Size (cm) - Width 1.4 -Current Size (cm) - Depth 0.1 -Total Square Cm 0.70 -Photo Taken Yes -Tunneling No -Undermining/Tunneling No -Circular Undermining No -Exudate Amt Medium -Exudate Type Serosanguineous -Wound Margin Distinct, Outline Attached -Granulation Amt Medium (34-66%) -Granulation Quality [place] -Slough/Fibrin Yes -Necrosis Amt Medium (34-66%) -Necrotic Tissue Type Adherent Slough -Structure Exposed N/A -Texture (Joyce-wound Skin Appearance) Assessed, Friable -Moisture (Joyce-wound Skin Appearance) Assessed -Color (Joyce-wound Skin Appearance) No Abnormality -Temperature (Joyce-wound Skin No Abnormality Appearance) (Pt Warm) -Tenderness on Palpation (Joyce-wound No Skin Appearance) -Ulcer Cleansing Wound Cleanser -Foul Odor after Cleansing No -Anesthetic Used 5% Lidocaine Gel Lower Limb Edema Present Yes Right Calf (cm) 27.5 Right Ankle (cm) 16 Left Calf (cm) 28.5 Left Ankle (cm) 17.6 WC - Nurse 2 - General Ulcer CM Notes Start: 12/10/24 13:31 Freq: Status: Active Protocol: Activity Type Activity Date Activity User E-sign Co-sign Detail Recorded Client Recorded Date Recorded By Document 03/18/24 14:08 DS [id number] 03/18/24 14:16 DS 03/18/24 14:08 Wound Center Nurse 2 2. LLE ant -Time 14:08 -Correct Patient Yes -Correct Side, Site, Position Yes -Correct Procedure Yes -Procedure Performed Yes -Type of Procedure Debridement -Clinical Debridement Subcutaneous -Tissue Removed Subcutaneous -Post Debridement (cm) - Length 3.2 -Post Debridement (cm) - Width 4.0 -Post Debridement (cm) - Depth 0.1 -Total Square (Post) (cm) 12.80 -Area of Debridement (cm) - Length 3.2 -Area of Debridement (cm) - Width 4.0 -Total Square (Area) (cm) 12.80 -Tunneling No -Undermining/Tunneling No -Circular Undermining No -Wound/Ulcer Outcome Not Healed -Ulcer Cleansing Rinsed/ Irrigated with Saline -Bioengineered Tissue No -Bleeding Controlled with Pressure -Treatment Response Procedure Tolerated Well -Debridement - Subq, 1st 20sq cm Yes 1. RLE ant -Time 14:08 -Correct Patient Yes -Correct Side, Site, Position Yes -Correct Procedure Yes -Procedure Performed Yes -Type of Procedure Debridement -Clinical Debridement Subcutaneous -Tissue Removed Subcutaneous -Post Debridement (cm) - Length 1.4 -Post Debridement (cm) - Width 1.5 -Post Debridement (cm) - Depth 0.1 -Total Square (Post) (cm) 2.10 -Area of Debridement (cm) - Length 1.4 -Area of Debridement (cm) - Width 1.5 -Total Square (Area) (cm) 2.10 -Tunneling No -Undermining/Tunneling No -Circular Undermining No -Wound/Ulcer Outcome Not Healed -Ulcer Cleansing Rinsed/ Irrigated with Saline -Bioengineered Tissue No -Bleeding Controlled with Pressure -Treatment Response Procedure Tolerated Well -Debridement - Subq, 1st 20sq cm No Pain Scale: 0-10 Numeric Is Patient Pain Free? No bilat LE -Description Aching -Intensity 5 -Duration (hours) Chronic -Pain Behavior Guarding -Pain Aggravating Factors Debridement -Alleviating Factors/Interventions Will continue to monitor, Emotional Support WC - Nurse 3 - General Ulcer D/C NN Start: 03/18/24 13:31 Freq: Status: Active Protocol: Activity Type Activity Date Activity User E-sign Co-sign Detail Recorded Client Recorded Date Recorded By Document 03/18/24 14:47 JAIDEN [id number] 03/18/24 14:48 JAIDEN 03/18/24 14:47 Wound Care Center Nurse 3 2. LLE ant -Ulcer Cleansing Rinsed/ Irrigated with Saline -Foul Odor after Cleansing No -Primary Dressing Applied Mepilex Border, Promogran -Mepilex Border 1 -Promogran 1 1. RLE ant -Ulcer Cleansing Rinsed/ Irrigated with Saline -Foul Odor after Cleansing No -Primary Dressing Applied Mepilex Border, Promogran -Mepilex Border 1 -Promogran 1 Pain Scale: 0-10 Numeric Is Patient Pain Free? Yes WC - Visit Discharge Discharge Condition Stable Ambulatory Status Ambulatory Transportation Private Auto Accompanied by daughter Medication Reconcilliation completed & Yes provided to patient/care provider Clinical Summary of Care Provided Yes Additional Wound Wound debrided: Right pretibial wound Laterality: Right Type of Debridement: Excisional debridement Anesthesia Used: 5% Lidocaine Gel and Cetacaine Depth: Down to and including healthy tissue and in the subcutaneous layer Percentage of wound debrided: 100 Instrument Used: 5mm curette Tissue Removed: Bioburden and nonviable tissue Severity: Fat Layer Exposed Amount of bleeding with debridement: Mild Bleeding Controlled with: Compression and gauze Patient tolerated procedure: Patient tolerated procedure well Lab / Micro Data Lab results narrative: Laboratory Tests 02/25/24 13:19 WBC 4.6 Hgb 13.6 Hct 41.5 Plt Count 395 Sodium 137 Potassium 3.6 Chloride 103 BUN 10 Creatinine 1.01 Glucose 81 Calcium 9.1 Total Bilirubin 0.50 AST 16 ALT 15 Alkaline Phosphatase 54 Total Protein 7.4 Albumin 4.1 TSH 0.150 L Charges/Coding Multi Select Codes Visit Charges Office Visit/Consults: 70958 OV L4 New 45 min Integumentary Integumentary CPT Codes: 76331 [place] subq tissue 20 sq cm/< Assessment/Plan Assessment/Plan (1) Traumatic open wound of right lower leg: CODE(S): S81.801A - Unspecified open wound, right lower leg, initial encounter QUALIFIERS: Encounter type: initial encounter Qualified Code(s): S81.801A - Unspecified open wound, right lower leg, initial encounter (2) Traumatic open wound of left lower leg: CODE(S): S81.802A - Unspecified open wound, left lower leg, initial encounter QUALIFIERS: Encounter type: initial encounter Qualified Code(s): S81.802A - Unspecified open wound, left lower leg, initial encounter (3) Non-pressure chronic ulcer of right lower leg with fat layer exposed: CODE(S): L97.912 - Non-pressure chronic ulcer of unspecified part of right lower leg with fat layer exposed (4) Non-pressure chronic ulcer of left lower leg with fat layer exposed: CODE(S): L97.922 - Non-pressure chronic ulcer of unspecified part of left lower leg with fat layer exposed (5) Lumbar scoliosis: CODE(S): M41.9 - Scoliosis, unspecified QUALIFIERS: Scoliosis type: other secondary scoliosis Qualified Code(s): M41.56 - Other secondary scoliosis, lumbar region (6) Low back pain: CODE(S): M54.50 - Low back pain, unspecified (7) DDD (degenerative disc disease), lumbosacral: CODE(S): M51.37 - Other intervertebral disc degeneration, lumbosacral region (8) Hypothyroidism (acquired): CODE(S): E03.9 - Hypothyroidism, unspecified (9) Cataracts, bilateral: CODE(S): H26.9 - Unspecified cataract (10) History of tonsillectomy: CODE(S): Z90.89 - Acquired absence of other organs (11) History of IBS: CODE(S): Z87.19 - Personal history of other diseases of the digestive system (12) Former smoker: CODE(S): Z87.891 - Personal history of nicotine dependence (13) History of lumbar spinal fusion: CODE(S): Z98.1 - Arthrodesis status (14) History of hysterectomy: CODE(S): Z90.710 - Acquired absence of both cervix and uterus (15) History of cervical discectomy: CODE(S): Z98.890 - Other specified postprocedural states (16) History of total hip replacement: CODE(S): Z96.649 - Presence of unspecified artificial hip joint (17) Status post spinal disc removal: CODE(S): Z98.890 - Other specified postprocedural states PLAN: Plan This is a 74-year-old female who presented with traumatic wounds in both lower extremities. Although the patient does not relate significant swelling in her lower extremities, measures to prevent such swelling have been thoroughly discussed. Patient has been encouraged to elevate her lower extremities is much as possible. She has been advised to refrain from prolonged, idle sitting. Activity has been encouraged. The patient has been encouraged to optimize her nutritional intake. Her appetite is said to be recently depressed due to the recent loss of her . She has been provided samples of Frank, and encouraged to use a nutritional supplement on a daily basis until which time her appetite returns to normal. We are to implement the use of Promogran topically to each of the 2 lower extremity wounds. The patient and her daughter have been instructed in the appropriate means of application. Arrangements will be made for the appropriate wound dressings to be provided to the patient. A border foam dressing is to be implemented, to minimize trauma to the patient's surrounding delicate skin. The patient is to return in 1 week for reassessment. She is to continue her current antibiotics as prescribed by her primary care physician. Total time: 48 minutes
--- NOTE | 2024-03-19 12:21 | WC ---
PHOTO 03/18/24 RIGHT ALYSHA PERRY
--- NOTE | 2024-03-19 12:22 | WC ---
PHOTO 03/18/24 TRINA PERRY
--- NOTE | 2024-03-25 11:48 | WC ---
PHOTO 03/18/24 RIGHT ALYSHA PERRY
--- NOTE | 2024-03-25 11:48 | WC ---
PHOTO LEFT LE ANT 03/18/24
[2024-03-25 15:15] VITALS: BP 150/63; PULSE 75; RESP 18; TEMP 35.3; BMI 19.7
--- NOTE | 2024-03-27 10:35 | HP.PCM_ITS ---
History of Present Illness Date of Service: 03/25/24 Chief Complaint: Bilateral lower extremity traumatic wounds History of Wound: This is a 74-year-old female who presented with traumatic wounds to both lower extremities. The wounds are located on the pretibial surfaces bilaterally. The wound on the right pretibial surface occurred approximately 1 month prior to presentation, resulting when the patient bumped her leg against a trash bin. The wound has failed to heal appropriately. More recently, approximately 10 days prior to presentation, the patient dropped a box of spaghetti noodles onto the left pretibial surface, resulting in a wound which has failed to heal. The patient was seen by her primary care physician, Dr. Lundberg, 4 days prior to presentation, where a course of Keflex and doxycycline were initiated. The patient has completed her course of antibiotics. 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 The patient is mobile and active. She denies swelling in her legs. She sleeps on a flat surface at night. She denies a history of thrombophlebitis. The patient denies a history of congestive heart failure, myocardial infarction, diabetes mellitus, cerebrovascular accident, hypertension, renal disease, and pulmonary disease. She has a history of hypothyroidism. A limited venous duplex examination is noted to have been performed on October 26, 2022, examining only the right lower extremity, and revealing no evidence of thrombophlebitis. Valvular competence was not fully evaluated. [facility] Medical History Traumatic open wound of right lower leg Traumatic open wound of left lower leg Non-pressure chronic ulcer of left lower leg with fat layer exposed Non-pressure chronic ulcer of right lower leg with fat layer exposed Traumatic open wound of right lower leg with delayed healing Traumatic open wound of left lower leg with delayed healing Wears glasses Anxiety Alcohol use History of steroid therapy Easy bruising Back pain Injury of back Migraine headache Syncope History of IBS Former smoker Leg cramps History of edema History of stress test Cataracts, bilateral Arthritis Anemia Vitamin D deficiency, unspecified Hypothyroidism Home Medications ?Medication ?Instructions ?Recorded ?Last Taken ?Type lidocaine 5 % topical patch 2 patch topical DAILY 05/03/17 1 Day Ago History ~09/21/17 meloxicam 15 mg tablet 15 mg PO QDAY 05/03/17 09/22/17 History doxepin 10 mg capsule 10 mg PO QHS 12/16/19 Unknown History folic acid 400 mcg tablet 0.4 mg PO DAILY@0800 12/16/19 Unknown History linaclotide 145 mcg capsule 145 mcg PO DAILY 12/16/19 Unknown History loratadine 10 mg tablet 10 mg PO DAILY 12/16/19 Unknown History estradiol 0.1 mg/24 hr semiweekly 2 patch transdermal MOTH 03/15/20 Unknown History transdermal patch (Bessie) acetaminophen 500 mg tablet 1,000 mg PO BID 01/06/22 Unknown History vitamin [id number] B1 100 mg-1 1 ml IM .QMO 01/06/22 Unknown History mg/mL intramuscular solution gabapentin 100 mg capsule 300 mg PO BID 07/19/23 Unknown History cephalexin 500 mg capsule 500 mg PO BID 03/18/24 Unknown History doxycycline hyclate 100 mg tablet 100 mg PO BID 03/18/24 Unknown History levothyroxine 50 mcg tablet 50 mcg PO DAILY 03/18/24 Unknown History Allergy/AdvReac Type Severity Reaction Status Date / Time No Known Allergies Allergy Verified 07/19/23 14:03 Family History Mother Rheumatoid arthritis Father Pancreatic cancer Cancer Grandfather Myocardial infarction Grandmother Thyroid disorder Surgical History Status post spinal disc removal History of tonsillectomy History of lumbar spinal fusion History of total hip replacement History of hysterectomy History of cervical discectomy Social History household members: spouse Smoking Status: Never smoker alcohol intake: current alcohol intake frequency: a few times a week Alcohol type: wine substance use type: does not use what type of physical activity do you participate in: other details: physical therapy frequency: 1-2 times per week Vital Signs Vital Signs Vital Signs: Weight Weight: 101 lb Body Mass Index (BMI) 19.7 Physical Exam Const alert, oriented x3, no apparent distress, average body habitus and no limitations Constitutional Narrative: The patient's BMI is 19.7. General Appearance: cooperative, comfortable, well kempt and well developed Orientation / Consciousness: awake, oriented to person, oriented to place and oriented to time Exam Limitations: no limitations HEENT normocephalic, head/scalp atraumatic and hearing grossly normal bilaterally Head and Scalp: normal to inspection, normocephalic and atraumatic Face and Sinus: normal facial exam Nose: external nose normal External Ear: external ears normal Eyes EOMs intact bilaterally General Eye: normal appearance of both eyes Neck full ROM Resp normal respiratory effort, normal air movement, no retractions and no use of accessory muscles Effort and Inspection: able to speak in complete sentences Extremity no calf tenderness General Extremity: Negative for clubbing or cyanosis Skin Wound Narrative: The patient's lower extremities appear warm and well-perfused. Pedal pulses are easily palpable bilaterally. There is no significant swelling or edema in the patient's lower extremities. A wound is noted on the right pretibial surface. It appears to be full-thickness in nature. It is generally pink and healthy in appearance, with a mild amount of bioburden. Dimensions are documented elsewhere. There is no sign of infection or cellulitis. Wound margins are well beveled. A wound is also noted in the left pretibial surface. The wound is full-thickness in nature. There is a mild amount of bioburden. Dimensions are documented elsewhere. There is no sign of infection or cellulitis. The base of the wound is predominantly pink and healthy in appearance. Hair: normal Neuro oriented x3, CN's II-XII intact bilaterally, moves all extremities, no focal motor deficits and no sensory deficits noted Sensorium / Orientation: awake, alert, oriented to person, oriented to place and oriented to time Psych Appearance: grossly normal and appropriate Attitude: calm Activity / Motor Behavior: appropriate eye contact Speech: normal speech Mood & Affect: euthymic mood Thought Process: normal thought process Thought Content: normal thought content Attention / Concentration: attention grossly intact Debridement Note Debridement Note Wound debrided: Left pretibial wound Laterality: Left Type of Debridement: Excisional debridement Anesthesia Used: 5% Lidocaine Gel and Cetacaine Depth: Down to and including healthy tissue and in the subcutaneous layer Percentage of wound debrided: 100 Instrument Used: 5mm curette Tissue Removed: Bioburden and nonviable tissue Severity: Fat Layer Exposed Amount of bleeding with debridement: Mild Bleeding Controlled with: Compression and gauze Patient tolerated procedure: Patient tolerated procedure well Post-Debridement Measurements and Additional Note: Post-Debridement Measurements/Treatment WC - Nurse 1 - General Ulcer Assessment Start: 03/18/24 13:31 Freq: Status: Active Protocol: WC.LOWEXT Activity Type Activity Date Activity User E-sign Co-sign Detail Recorded Client Recorded Date Recorded By Document 03/18/24 13:38 RB [id number] 03/18/24 13:50 RB Document 03/25/24 15:15 RB [id number] 03/25/24 15:23 RB 03/18/24 03/25/24 13:38 15:15 WC - Today's Visit Information Type of service Initial Visit Follow-up Visit (Physician/FOREIGN BROADCAST SPECIALIST ) Arrival Mode Ambulatory Ambulatory Transfer Assistance None None Patient Identification Verified (Name & Yes Yes ) Patient Requires Transmission-Based No No Precautions Height and Weight Height 5 ft Weight 101 lb Weight in Pounds 101.0 lbs Body Mass Index (BMI) 19.7 19.7 BMI Classification Normal Normal BSA - Millie 1.40 Vital Signs Temperature (97.8 F-99.1 F) 96.4 F L 95.6 F L Temperature Source Temporal Temporal Pulse Rate (60-100) 67 75 Pulse Location Monitor Monitor Respiratory Rate (12-18) 18 18 Respiratory rate source Observation Observation Blood Pressure (90/60-120/80) 154/48 H 150/63 H Blood Pressure Mean 83 92 Source Monitor Monitor Position Semi-Fowlers Semi-Fowlers Blood Pressure Location Left Arm Left Arm History Since Last Visit- (Skip if this is Patient's initial visit) Have you changed medications since your No No last visit? Any new allergies or adverse reactions No No Had a fall/change in ADL's that may No No increase risk of falls Signs or symptoms of abuse and/or No No neglect since last visit Have you been in the hospital since your No No last visit? Has dressing in place as prescribed Yes Yes Has compression in place as prescribed No No Has offloadiing in place as prescribed No No Experienced any changes in pain level or No No management Pain Scale: 0-10 Numeric Is Patient Pain Free? No Yes bilat LE -Description Dull,Throbbing, Aching -Intensity 3 -Duration (hours) Acute -Pain Behavior Withdrawal from Touch -Pain Aggravating Factors Exercise/ Activity, Debridement -Alleviating Factors/Interventions Medication -Effectiveness of Alleviating Factor/ Minimally Intervention effective Lower Extremity Assessment/ Foot Assessment/ Toe Nail Assessment Right -Posterior Tibial Palpable Yes -Dorsalis Pedis Palpable Yes -Extremity Color Normal -Hair Growth on Legs Yes -Hair Growth on Toes No -Temperature of Extremity Warm -Capillary Refill Less than 3 Seconds -Dependent Rubor No -Blanched when Elevated No -Lipodermatosclerosis No -Other Deformity No -Prior Foot Ulcer No -Charcot Joint No -Prior Amputation No -Thick No -Discolored No -Deformed No -Improper Length & Hygeine Yes Left -Posterior Tibial Palpable Yes -Dorsalis Pedis Palpable Yes -Extremity Color Normal -Hair Growth on Legs Yes -Hair Growth on Toes No -Temperature of Extremity Warm -Capillary Refill Less than 3 Seconds -Dependent Rubor No -Blanched when Elevated No -Lipodermatosclerosis No -Other Deformity No -Prior Foot Ulcer No -Charcot Joint No -Prior Amputation No -Thick No -Discolored No -Deformed No -Improper Length & Hygeine Yes Neuropathy Assessment Feet - Top Side and Bottom <Entered> (a) Communication Assessment Preferred language Occitan Scaffold Worker Required No Right Hearing Abillity Normal Left Hearing Abillity Normal Visual Assistive Devices Glasses Teaching Assessment Preferences Verbal,Written, Demonstration Barriers to Learning None Readiness To Learn Good Willingness to Engage in Self Management Med Activies Readiness to Engage in Self Management Med Activities Anxiety Level Calm Cooperation Cooperative Perception Coherent Interest in Health Problem Asks Questions Education Importance Acknowledges Need Does Patient Smoke tobacco or other No substances Smoking Status Never smoker Is Patient Diabetic No Functional Assessment Recent Decline in Ability to Perform Denies Any Declines Assistive Device With Patient No Culture/Jehovah'S Witness/Assembly Associate Cultural/Jehovah'S Witness Needs that may affect No Treatment Plan Would you allow our hospital electronic technician to No meet you for the purpose of spiritual/ emotional support? Assembly Associate to contact place of oriental orthodox No (a) 1 - + throughout WC - Nurse 1 - General Ulcer Measurement Start: 03/18/24 13:31 Freq: Status: Active Protocol: Activity Type Activity Date Activity User E-sign Co-sign Detail Recorded Client Recorded Date Recorded By Document 03/18/24 13:38 RB [id number] 03/18/24 13:50 RB Document 03/25/24 15:15 RB [id number] 03/25/24 15:23 RB 03/18/24 03/25/24 13:38 15:15 Wound Center Nurse 1 2. LLE ant -Combined with other wound No No -Current Size (cm) - Length 3 2.7 -Current Size (cm) - Width 3.4 3.5 -Current Size (cm) - Depth 0.1 0.1 -Total Square Cm 10.2 9.45 -Photo Taken Yes -Tunneling No No -Undermining/Tunneling No No -Circular Undermining No No -Exudate Amt Medium Medium -Exudate Type Serosanguineous Serosanguineous -Wound Margin Distinct, Distinct, Outline Outline Attached Attached -Granulation Amt Medium (34-66%) Medium (34-66%) -Granulation Quality [place] -Slough/Fibrin Yes Yes -Necrosis Amt Medium (34-66%) Medium (34-66%) -Necrotic Tissue Type Adherent Slough Adherent Slough -Structure Exposed N/A N/A -Texture (Joyce-wound Skin Appearance) Assessed, Assessed, Friable Scarring -Moisture (Joyce-wound Skin Appearance) Assessed Assessed -Color (Joyce-wound Skin Appearance) Assessed Assessed, Hemosiderin Staining -Temperature (Joyce-wound Skin No Abnormality No Abnormality Appearance) (Pt Warm) (Pt Warm) -Tenderness on Palpation (Joyce-wound No No Skin Appearance) -Ulcer Cleansing Wound Cleanser Wound Cleanser -Foul Odor after Cleansing No No -Anesthetic Used 5% Lidocaine 5% Lidocaine Gel Gel 1. RLE ant -Combined with other wound No No -Current Size (cm) - Length 0.5 0.6 -Current Size (cm) - Width 1.4 1 -Current Size (cm) - Depth 0.1 0.1 -Total Square Cm 0.70 0.6 -Photo Taken Yes -Tunneling No No -Undermining/Tunneling No No -Circular Undermining No No -Exudate Amt Medium Medium -Exudate Type Serosanguineous Serosanguineous -Wound Margin Distinct, Distinct, Outline Outline Attached Attached -Granulation Amt Medium (34-66%) Medium (34-66%) -Granulation Quality [place] -Slough/Fibrin Yes Yes -Necrosis Amt Medium (34-66%) Medium (34-66%) -Necrotic Tissue Type Adherent Slough Adherent Slough -Structure Exposed N/A N/A -Texture (Joyce-wound Skin Appearance) Assessed, Assessed, Friable Scarring -Moisture (Joyce-wound Skin Appearance) Assessed Assessed -Color (Joyce-wound Skin Appearance) No Abnormality Hemosiderin Staining -Temperature (Joyce-wound Skin No Abnormality No Abnormality Appearance) (Pt Warm) (Pt Warm) -Tenderness on Palpation (Joyce-wound No No Skin Appearance) -Ulcer Cleansing Wound Cleanser Wound Cleanser -Foul Odor after Cleansing No No -Anesthetic Used 5% Lidocaine 5% Lidocaine Gel Gel Lower Limb Edema Present Yes Right Calf (cm) 27.5 Right Ankle (cm) 16 Left Calf (cm) 28.5 Left Ankle (cm) 17.6 WC - Nurse 2 - General Ulcer CM Notes Start: 03/18/24 13:31 Freq: Status: Active Protocol: Activity Type Activity Date Activity User E-sign Co-sign Detail Recorded Client Recorded Date Recorded By Document 03/18/24 14:08 DS [id number] 03/18/24 14:16 DS Document 03/25/24 15:44 DS [id number] 03/25/24 15:49 DS Edit Result 03/25/24 15:44 DS (1) [id number] 03/25/24 16:08 DS (1) 1. RLE ant - Debridement - Subq, 1st 20sq cm Yes => No 03/18/24 03/25/24 14:08 15:44 Wound Center Nurse 2 2. LLE ant -Time 14:08 15:44 -Correct Patient Yes Yes -Correct Side, Site, Position Yes Yes -Correct Procedure Yes Yes -Procedure Performed Yes Yes -Type of Procedure Debridement Debridement -Clinical Debridement Subcutaneous Subcutaneous -Tissue Removed Subcutaneous Subcutaneous -Post Debridement (cm) - Length 3.2 3.0 -Post Debridement (cm) - Width 4.0 4.1 -Post Debridement (cm) - Depth 0.1 0.1 -Total Square (Post) (cm) 12.80 12.30 -Area of Debridement (cm) - Length 3.2 3.0 -Area of Debridement (cm) - Width 4.0 4.1 -Total Square (Area) (cm) 12.80 12.30 -Tunneling No No -Undermining/Tunneling No No -Circular Undermining No No -Wound/Ulcer Outcome Not Healed Not Healed -Ulcer Cleansing Rinsed/ Rinsed/ Irrigated with Irrigated with Saline Saline -Bioengineered Tissue No No -Bleeding Controlled with Pressure Pressure -Treatment Response Procedure Procedure Tolerated Well Tolerated Well -Debridement - Subq, 1st 20sq cm Yes Yes 1. RLE ant -Time 14:08 15:45 -Correct Patient Yes Yes -Correct Side, Site, Position Yes Yes -Correct Procedure Yes Yes -Procedure Performed Yes Yes -Type of Procedure Debridement Debridement -Clinical Debridement Subcutaneous Subcutaneous -Tissue Removed Subcutaneous Subcutaneous -Post Debridement (cm) - Length 1.4 0.6 -Post Debridement (cm) - Width 1.5 0.9 -Post Debridement (cm) - Depth 0.1 0.1 -Total Square (Post) (cm) 2.10 0.54 -Area of Debridement (cm) - Length 1.4 0.6 -Area of Debridement (cm) - Width 1.5 0.9 -Total Square (Area) (cm) 2.10 0.54 -Tunneling No No -Undermining/Tunneling No No -Circular Undermining No No -Wound/Ulcer Outcome Not Healed Not Healed -Ulcer Cleansing Rinsed/ Rinsed/ Irrigated with Irrigated with Saline Saline -Bioengineered Tissue No No -Bleeding Controlled with Pressure Pressure -Treatment Response Procedure Procedure Tolerated Well Tolerated Well -Debridement - Subq, 1st 20sq cm No No Pain Scale: 0-10 Numeric Is Patient Pain Free? No Yes bilat LE -Description Aching -Intensity 5 -Duration (hours) Chronic -Pain Behavior Guarding -Pain Aggravating Factors Debridement -Alleviating Factors/Interventions Will continue to monitor, Emotional Support - Nurse 3 - General Ulcer D/C NN Start: 03/18/24 13:31 Freq: Status: Active Protocol: Activity Type Activity Date Activity User E-sign Co-sign Detail Recorded Client Recorded Date Recorded By Document 03/18/24 14:47 [id number] 03/18/24 14:48 Document 03/25/24 15:56 [id number] 03/25/24 15:56 03/18/24 03/25/24 14:47 15:56 Wound Care Center Nurse 3 2. LLE ant -Ulcer Cleansing Rinsed/ Irrigated with Saline -Foul Odor after Cleansing No -Primary Dressing Applied Mepilex Border, Mepilex Border, Promogran Promogran -Mepilex Border 1 1 -Promogran 1 1 1. RLE ant -Ulcer Cleansing Rinsed/ Irrigated with Saline -Foul Odor after Cleansing No -Primary Dressing Applied Mepilex Border, Mepilex Border Promogran -Other Dressing promogran -Mepilex Border 1 1 -Promogran 1 Pain Scale: 0-10 Numeric Is Patient Pain Free? Yes Yes WC - Visit Discharge Discharge Condition Stable Stable Ambulatory Status Ambulatory Ambulatory Transportation Private Auto Private Auto Accompanied by daughter Medication Reconcilliation completed & Yes No provided to patient/care provider Clinical Summary of Care Provided Yes Yes Additional Wound Wound debrided: Right pretibial wound Laterality: Right Type of Debridement: Excisional debridement Anesthesia Used: 5% Lidocaine Gel and Cetacaine Depth: Down to and including healthy tissue and in the subcutaneous layer Percentage of wound debrided: 100 Instrument Used: 5mm curette Tissue Removed: Bioburden and nonviable tissue Severity: Fat Layer Exposed Amount of bleeding with debridement: Mild Bleeding Controlled with: Compression and gauze Patient tolerated procedure: Patient tolerated procedure well Charges/Coding Procedures Integumentary [id number]: [id number] [place] subq tissue 20 sq cm/< Assessment/Plan Assessment/Plan (1) Non-pressure chronic ulcer of right lower leg with fat layer exposed: CODE(S): L97.912 - Non-pressure chronic ulcer of unspecified part of right lower leg with fat layer exposed (2) Non-pressure chronic ulcer of left lower leg with fat layer exposed: CODE(S): L97.922 - Non-pressure chronic ulcer of unspecified part of left lower leg with fat layer exposed (3) Traumatic open wound of right lower leg: CODE(S): S81.801A - Unspecified open wound, right lower leg, initial encounter QUALIFIERS: Encounter type: initial encounter Qualified Code(s): S81.801A - Unspecified open wound, right lower leg, initial encounter (4) Traumatic open wound of left lower leg: CODE(S): S81.802A - Unspecified open wound, left lower leg, initial encounter QUALIFIERS: Encounter type: initial encounter Qualified Code(s): S81.802A - Unspecified open wound, left lower leg, initial encounter (5) Lumbar scoliosis: CODE(S): M41.9 - Scoliosis, unspecified QUALIFIERS: Scoliosis type: other secondary scoliosis Qualified Code(s): M41.56 - Other secondary scoliosis, lumbar region (6) Low back pain: CODE(S): M54.50 - Low back pain, unspecified (7) DDD (degenerative disc disease), lumbosacral: CODE(S): M51.37 - Other intervertebral disc degeneration, lumbosacral region (8) Hypothyroidism (acquired): CODE(S): E03.9 - Hypothyroidism, unspecified (9) Cataracts, bilateral: CODE(S): H26.9 - Unspecified cataract (10) History of tonsillectomy: CODE(S): Z90.89 - Acquired absence of other organs (11) History of IBS: CODE(S): Z87.19 - Personal history of other diseases of the digestive system (12) Former smoker: CODE(S): Z87.891 - Personal history of nicotine dependence (13) History of lumbar spinal fusion: CODE(S): Z98.1 - Arthrodesis status (14) History of hysterectomy: CODE(S): Z90.710 - Acquired absence of both cervix and uterus (15) History of cervical discectomy: CODE(S): Z98.890 - Other specified postprocedural states (16) History of total hip replacement: CODE(S): Z96.649 - Presence of unspecified artificial hip joint (17) Status post spinal disc removal: CODE(S): Z98.890 - Other specified postprocedural states PLAN: Plan This is a 74-year-old female who presented with traumatic wounds in both lower extremities. Although the patient does not relate significant swelling in her lower extremities, measures to prevent such swelling have been thoroughly discussed. Patient has been encouraged to elevate her lower extremities is much as possible. She has been advised to refrain from prolonged, idle sitting. Activity has been encouraged. The patient has been encouraged to optimize her nutritional intake. Her appetite is said to be recently depressed due to the recent loss of her . She has been provided samples of Frank, and encouraged to use a nutritional supplement on a daily basis until which time her appetite returns to normal. We are to continue the use of Promogran topically to each of the 2 lower extremity wounds. The patient and her daughter have been instructed in the appropriate means of application. Arrangements will be made for the appropriate wound dressings to be provided to the patient. A border foam dressing is to be implemented, to minimize trauma to the patient's surrounding delicate skin. In review of the patient's recent culture results, revealing Brevundimonas diminuta, it is regarded that the culture results are not likely pathogenic but for individuals who are immunocompromised. Therefore, no further intervention will be undertaken, though the patient's wounds will be closely monitored on a serial basis. The patient is to return in 1 week for reassessment. Total time: 25 minutes
[2024-04-01 10:29] VITALS: BP 150/50; PULSE 68; RESP 18; TEMP 36.3; BMI 19.7
--- NOTE | 2024-04-02 14:52 | HP.PCM_ITS ---
History of Present Illness Date of Service: 04/01/24 Chief Complaint: Bilateral lower extremity traumatic wounds History of Wound: This is a 74-year-old female who presented with traumatic wounds to both lower extremities. The wounds are located on the pretibial surfaces bilaterally. The wound on the right pretibial surface occurred approximately 1 month prior to presentation, resulting when the patient bumped her leg against a trash bin. The wound has failed to heal appropriately. More recently, approximately 10 days prior to presentation, the patient dropped a box of spaghetti noodles onto the left pretibial surface, resulting in a wound which has failed to heal. The patient was seen by her primary care physician, Dr. Lundberg, 4 days prior to presentation, where a course of Keflex and doxycycline were initiated. The patient has completed her course of antibiotics. 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 The patient is mobile and active. She denies swelling in her legs. She sleeps on a flat surface at night. She denies a history of thrombophlebitis. The patient denies a history of congestive heart failure, myocardial infarction, diabetes mellitus, cerebrovascular accident, hypertension, renal disease, and pulmonary disease. She has a history of hypothyroidism. A limited venous duplex examination is noted to have been performed on October 26, 2022, examining only the right lower extremity, and revealing no evidence of thrombophlebitis. Valvular competence was not fully evaluated. [facility] Medical History Traumatic open wound of right lower leg Traumatic open wound of left lower leg Non-pressure chronic ulcer of left lower leg with fat layer exposed Non-pressure chronic ulcer of right lower leg with fat layer exposed Traumatic open wound of right lower leg with delayed healing Traumatic open wound of left lower leg with delayed healing Wears glasses Anxiety Alcohol use History of steroid therapy Easy bruising Back pain Injury of back Migraine headache Syncope History of IBS Former smoker Leg cramps History of edema History of stress test Cataracts, bilateral Arthritis Anemia Vitamin D deficiency, unspecified Hypothyroidism Home Medications ?Medication ?Instructions ?Recorded ?Last Taken ?Type lidocaine 5 % topical patch 2 patch topical DAILY 05/03/17 1 Day Ago History ~09/21/17 meloxicam 15 mg tablet 15 mg PO QDAY 05/03/17 09/22/17 History doxepin 10 mg capsule 10 mg PO QHS 12/16/19 Unknown History folic acid 400 mcg tablet 0.4 mg PO DAILY@0800 12/16/19 Unknown History linaclotide 145 mcg capsule 145 mcg PO DAILY 12/16/19 Unknown History loratadine 10 mg tablet 10 mg PO DAILY 12/16/19 Unknown History estradiol 0.1 mg/24 hr semiweekly 2 patch transdermal MOTH 03/15/20 Unknown History transdermal patch (Bessie) acetaminophen 500 mg tablet 1,000 mg PO BID 01/06/22 Unknown History vitamin [id number] B1 100 mg-1 1 ml IM .QMO 01/06/22 Unknown History mg/mL intramuscular solution gabapentin 100 mg capsule 300 mg PO BID 07/19/23 Unknown History cephalexin 500 mg capsule 500 mg PO BID 03/18/24 Unknown History doxycycline hyclate 100 mg tablet 100 mg PO BID 03/18/24 Unknown History levothyroxine 50 mcg tablet 50 mcg PO DAILY 03/18/24 Unknown History Allergy/AdvReac Type Severity Reaction Status Date / Time No Known Allergies Allergy Verified 07/19/23 14:03 Family History Mother Rheumatoid arthritis Father Pancreatic cancer Cancer Grandfather Myocardial infarction Grandmother Thyroid disorder Surgical History Status post spinal disc removal History of tonsillectomy History of lumbar spinal fusion History of total hip replacement History of hysterectomy History of cervical discectomy Social History household members: spouse Smoking Status: Never smoker alcohol intake: current alcohol intake frequency: a few times a week Alcohol type: wine substance use type: does not use what type of physical activity do you participate in: other details: physical therapy frequency: 1-2 times per week Vital Signs Vital Signs Vital Signs: Weight Weight: 101 lb Body Mass Index (BMI) 19.7 Physical Exam Const alert, oriented x3, no apparent distress, average body habitus and no limitations Constitutional Narrative: The patient's BMI is 19.7. She is thin body habitus. General Appearance: cooperative, comfortable, well kempt and well developed Orientation / Consciousness: awake, oriented to person, oriented to place and oriented to time Exam Limitations: no limitations HEENT normocephalic, head/scalp atraumatic and hearing grossly normal bilaterally Head and Scalp: normal to inspection, normocephalic and atraumatic Face and Sinus: normal facial exam Nose: external nose normal External Ear: external ears normal Eyes EOMs intact bilaterally General Eye: normal appearance of both eyes Neck full ROM Resp normal respiratory effort, normal air movement, no retractions and no use of accessory muscles Effort and Inspection: able to speak in complete sentences Extremity no calf tenderness General Extremity: Negative for clubbing or cyanosis Skin Wound Narrative: The patient's lower extremities appear warm and well-perfused. Pedal pulses are easily palpable bilaterally. There is no significant swelling or edema in the patient's lower extremities. A wound is noted on the right pretibial surface. It is full-thickness in nature, and has diminished in size significantly. It is generally pink and healthy in appearance, with a small amount of bioburden. Dimensions are documented elsewhere. There is no sign of infection or cellulitis. Wound margins are well beveled. A wound is also noted in the left pretibial surface. The wound is full-thickness in nature. There is a moderate amount of bioburden and nonviable tissue. Dimensions are documented elsewhere. There is no sign of infection or cellulitis. However, little progress has been noted in the status of the wound on the left pretibial surface. Hair: normal Neuro oriented x3, CN's II-XII intact bilaterally, moves all extremities, no focal motor deficits and no sensory deficits noted Sensorium / Orientation: awake, alert, oriented to person, oriented to place and oriented to time Psych Appearance: grossly normal and appropriate Attitude: calm Activity / Motor Behavior: appropriate eye contact Speech: normal speech Mood & Affect: euthymic mood Thought Process: normal thought process Thought Content: normal thought content Attention / Concentration: attention grossly intact Debridement Note Debridement Note Wound debrided: Left pretibial wound Laterality: Left Type of Debridement: Excisional debridement Anesthesia Used: 5% Lidocaine Gel and Cetacaine Depth: Down to and including healthy tissue and in the subcutaneous layer Percentage of wound debrided: 100 Instrument Used: 5mm curette Tissue Removed: Bioburden and nonviable tissue Severity: Fat Layer Exposed Amount of bleeding with debridement: Mild Bleeding Controlled with: Compression and gauze Patient tolerated procedure: Patient tolerated procedure well Debridement Free Text: Because of the failure to progress, and complaints of marilyn n from the site, a swab culture has been obtained for aerobic and anaerobic bacterial growth. Post-Debridement Measurements and Additional Note: Post-Debridement Measurements/Treatment WC - Nurse 1 - General Ulcer Assessment Start: 03/18/24 13:31 Freq: Status: Active Protocol: WC.LOWEXSelina Activity Type Activity Date Activity User E-sign Co-sign Detail Recorded Client Recorded Date Recorded By Document 03/18/24 13:38 RB [id number] 03/18/24 13:50 RB Document 03/25/24 15:15 RB [id number] 03/25/24 15:23 RB Document 04/01/24 10:29 KW [id number] 04/01/24 10:43 KW 03/18/24 03/25/24 04/01/24 13:38 15:15 10:29 WC - Today's Visit Information Type of service Initial Visit Follow-up Visit Follow-up Visit (Physician/MANAGER POOL (Physician/MANAGER POOL ) ) Arrival Mode Ambulatory Ambulatory Ambulatory Transfer Assistance None None Patient Identification Verified (Name & Yes Yes Yes ) Patient Requires Transmission-Based No No Precautions Height and Weight Height 5 ft Weight 101 lb Weight in Pounds 101.0 lbs Body Mass Index (BMI) 19.7 19.7 19.7 BMI Classification Normal Normal Normal BSA - Millie 1.40 Vital Signs Temperature (97.8 F-99.1 F) 96.4 F L 95.6 F L 97.3 F L Temperature Source Temporal Temporal Temporal Pulse Rate (60-100) 67 75 68 Pulse Location Monitor Monitor Monitor Respiratory Rate (12-18) 18 18 18 Respiratory rate source Observation Observation Observation Oxygen Delivery Method Room Air Blood Pressure (90/60-120/80) 154/48 H 150/63 H 150/50 H Blood Pressure Mean 83 92 83 Source Monitor Monitor Monitor Position Semi-Fowlers Semi-Fowlers Semi-Fowlers Blood Pressure Location Left Arm Left Arm Left Arm History Since Last Visit- (Skip if this is Patient's initial visit) Have you changed medications since your No No No last visit? Any new allergies or adverse reactions No No No Had a fall/change in ADL's that may No No No increase risk of falls Signs or symptoms of abuse and/or No No No neglect since last visit Have you been in the hospital since your No No No last visit? Has dressing in place as prescribed Yes Yes Yes Has compression in place as prescribed No No N/A Has offloadiing in place as prescribed No No N/A Experienced any changes in pain level or No No No management Left Footwear Regular Shoe Right Footwear Regular Shoe Pain Scale: 0-10 Numeric Is Patient Pain Free? No Yes Yes bilat LE -Description Dull,Throbbing, Aching -Intensity 3 -Duration (hours) Acute -Pain Behavior Withdrawal from Touch -Pain Aggravating Factors Exercise/ Activity, Debridement -Alleviating Factors/Interventions Medication -Effectiveness of Alleviating Factor/ Minimally Intervention effective Lower Extremity Assessment/ Foot Assessment/ Toe Nail Assessment Right -Posterior Tibial Palpable Yes -Dorsalis Pedis Palpable Yes -Extremity Color Normal -Hair Growth on Legs Yes -Hair Growth on Toes No -Temperature of Extremity Warm -Capillary Refill Less than 3 Seconds -Dependent Rubor No -Blanched when Elevated No -Lipodermatosclerosis No -Other Deformity No -Prior Foot Ulcer No -Charcot Joint No -Prior Amputation No -Thick No -Discolored No -Deformed No -Improper Length & Hygeine Yes Left -Posterior Tibial Palpable Yes -Dorsalis Pedis Palpable Yes -Extremity Color Normal -Hair Growth on Legs Yes -Hair Growth on Toes No -Temperature of Extremity Warm -Capillary Refill Less than 3 Seconds -Dependent Rubor No -Blanched when Elevated No -Lipodermatosclerosis No -Other Deformity No -Prior Foot Ulcer No -Charcot Joint No -Prior Amputation No -Thick No -Discolored No -Deformed No -Improper Length & Hygeine Yes Neuropathy Assessment Feet - Top Side and Bottom <Entered> (a) Communication Assessment Preferred language [place] Inside Sales Account Executive Required No Right Hearing Abillity Normal Left Hearing Abillity Normal Visual Assistive Devices Glasses Teaching Assessment Preferences Verbal,Written, Demonstration Barriers to Learning None Readiness To Learn Good Willingness to Engage in Self Management Med Activies Readiness to Engage in Self Management Med Activities Anxiety Level Calm Cooperation Cooperative Perception Coherent Interest in Health Problem Asks Questions Education Importance Acknowledges Need Does Patient Smoke tobacco or other No substances Smoking Status Never smoker Is Patient Diabetic No Functional Assessment Recent Decline in Ability to Perform Denies Any Declines Assistive Device With Patient No Culture/Jainism/Containers Sales Representative Cultural/Jainism Needs that may affect No Treatment Plan Would you allow our hospital investment accountant to No meet you for the purpose of spiritual/ emotional support? Containers Sales Representative to contact place of mosque No (a) 1 - + throughout WC - Nurse 1 - General Ulcer Measurement Start: 03/18/24 13:31 Freq: Status: Active Protocol: Activity Type Activity Date Activity User E-sign Co-sign Detail Recorded Client Recorded Date Recorded By Document 03/18/24 13:38 RB [id number] 03/18/24 13:50 RB Document 03/25/24 15:15 RB [id number] 03/25/24 15:23 RB Document 04/01/24 10:29 KW [id number] 04/01/24 10:43 KW 03/18/24 03/25/24 04/01/24 13:38 15:15 10:29 Wound Center Nurse 1 2. LLE ant -Combined with other wound No No -Current Size (cm) - Length 3 2.7 2.2 -Current Size (cm) - Width 3.4 3.5 3.8 -Current Size (cm) - Depth 0.1 0.1 0.1 -Total Square Cm 10.2 9.45 8.36 -Photo Taken Yes -Tunneling No No -Undermining/Tunneling No No -Circular Undermining No No -Exudate Amt Medium Medium Large -Exudate Type Serosanguineous Serosanguineous Purulent -Wound Margin Distinct, Distinct, Distinct, Outline Outline Outline Attached Attached Attached -Granulation Amt Medium (34-66%) Medium (34-66%) Small (1-33%) -Granulation Quality [place] -Slough/Fibrin Yes Yes -Necrosis Amt Medium (34-66%) Medium (34-66%) Large (67-100%) -Necrotic Tissue Type Adherent Slough Adherent Slough Adherent Slough -Structure Exposed N/A N/A -Texture (Joyce-wound Skin Appearance) Assessed, Assessed, Assessed Friable Scarring -Moisture (Joyce-wound Skin Appearance) Assessed Assessed Assessed -Color (Joyce-wound Skin Appearance) Assessed Assessed, Assessed Hemosiderin Staining -Temperature (Joyce-wound Skin No Abnormality No Abnormality No Abnormality Appearance) (Pt Warm) (Pt Warm) (Pt Warm) -Tenderness on Palpation (Joyce-wound No No No Skin Appearance) -Ulcer Cleansing Wound Cleanser Wound Cleanser Soap and Water -Foul Odor after Cleansing No No No -Anesthetic Used 5% Lidocaine 5% Lidocaine 4% Lidocaine Gel Gel Solution,5% Lidocaine Gel 1. RLE ant -Combined with other wound No No -Current Size (cm) - Length 0.5 0.6 0.1 -Current Size (cm) - Width 1.4 1 0.1 -Current Size (cm) - Depth 0.1 0.1 0.1 -Total Square Cm 0.70 0.6 0.01 -Photo Taken Yes -Tunneling No No -Undermining/Tunneling No No -Circular Undermining No No -Exudate Amt Medium Medium None Present -Exudate Type Serosanguineous Serosanguineous -Wound Margin Distinct, Distinct, Distinct, Outline Outline Outline Attached Attached Attached -Granulation Amt Medium (34-66%) Medium (34-66%) Small (1-33%) -Granulation Quality [place] -Slough/Fibrin Yes Yes -Necrosis Amt Medium (34-66%) Medium (34-66%) -Necrotic Tissue Type Adherent Slough Adherent Slough -Structure Exposed N/A N/A -Texture (Joyce-wound Skin Appearance) Assessed, Assessed, Assessed Friable Scarring -Moisture (Joyce-wound Skin Appearance) Assessed Assessed Assessed -Color (Joyce-wound Skin Appearance) No Abnormality Hemosiderin Assessed Staining -Temperature (Joyce-wound Skin No Abnormality No Abnormality No Abnormality Appearance) (Pt Warm) (Pt Warm) (Pt Warm) -Tenderness on Palpation (Joyce-wound No No No Skin Appearance) -Ulcer Cleansing Wound Cleanser Wound Cleanser Soap and Water -Foul Odor after Cleansing No No No -Anesthetic Used 5% Lidocaine 5% Lidocaine 5% Lidocaine Gel Gel Gel Lower Limb Edema Present Yes Right Calf (cm) 27.5 Right Ankle (cm) 16 Left Calf (cm) 28.5 Left Ankle (cm) 17.6 WC - Nurse 2 - General Ulcer CM Notes Start: 03/18/24 13:31 Freq: Status: Active Protocol: Activity Type Activity Date Activity User E-sign Co-sign Detail Recorded Client Recorded Date Recorded By Document 03/18/24 14:08 DS [id number] 03/18/24 14:16 DS Document 03/25/24 15:44 DS [id number] 03/25/24 15:49 DS Edit Result 03/25/24 15:44 DS (1) [id number] 03/25/24 16:08 DS Document 04/01/24 10:50 DS [id number] 04/01/24 11:10 DS (1) 1. RLE ant - Debridement - Subq, 1st 20sq cm Yes => No 03/18/24 03/25/24 04/01/24 14:08 15:44 10:50 Wound Center Nurse 2 2. LLE ant -Time 14:08 15:44 10:54 -Correct Patient Yes Yes Yes -Correct Side, Site, Position Yes Yes Yes -Correct Procedure Yes Yes Yes -Procedure Performed Yes Yes Yes -Type of Procedure Debridement Debridement Debridement -Clinical Debridement Subcutaneous Subcutaneous Subcutaneous -Tissue Removed Subcutaneous Subcutaneous Subcutaneous -Post Debridement (cm) - Length 3.2 3.0 2.5 -Post Debridement (cm) - Width 4.0 4.1 4.1 -Post Debridement (cm) - Depth 0.1 0.1 0.1 -Total Square (Post) (cm) 12.80 12.30 10.25 -Area of Debridement (cm) - Length 3.2 3.0 2.5 -Area of Debridement (cm) - Width 4.0 4.1 4.1 -Total Square (Area) (cm) 12.80 12.30 10.25 -Tunneling No No No -Undermining/Tunneling No No No -Circular Undermining No No No -Wound/Ulcer Outcome Not Healed Not Healed Not Healed -Ulcer Cleansing Rinsed/ Rinsed/ Rinsed/ Irrigated with Irrigated with Irrigated with Saline Saline Saline -Bioengineered Tissue No No No -Bleeding Controlled with Pressure Pressure Pressure -Treatment Response Procedure Procedure Procedure Tolerated Well Tolerated Well Tolerated Well -Debridement - Subq, 1st 20sq cm Yes Yes Yes 1. RLE ant -Time 14:08 15:45 10:55 -Correct Patient Yes Yes Yes -Correct Side, Site, Position Yes Yes Yes -Correct Procedure Yes Yes Yes -Procedure Performed Yes Yes Yes -Type of Procedure Debridement Debridement Debridement -Clinical Debridement Subcutaneous Subcutaneous Subcutaneous -Tissue Removed Subcutaneous Subcutaneous Subcutaneous -Post Debridement (cm) - Length 1.4 0.6 0.6 -Post Debridement (cm) - Width 1.5 0.9 0.8 -Post Debridement (cm) - Depth 0.1 0.1 0.1 -Total Square (Post) (cm) 2.10 0.54 0.48 -Area of Debridement (cm) - Length 1.4 0.6 0.6 -Area of Debridement (cm) - Width 1.5 0.9 0.8 -Total Square (Area) (cm) 2.10 0.54 0.48 -Tunneling No No No -Undermining/Tunneling No No No -Circular Undermining No No No -Wound/Ulcer Outcome Not Healed Not Healed Not Healed -Ulcer Cleansing Rinsed/ Rinsed/ Rinsed/ Irrigated with Irrigated with Irrigated with Saline Saline Saline -Bioengineered Tissue No No No -Bleeding Controlled with Pressure Pressure Pressure -Treatment Response Procedure Procedure Procedure Tolerated Well Tolerated Well Tolerated Well -Debridement - Subq, 1st 20sq cm No No No Pain Scale: 0-10 Numeric Is Patient Pain Free? No Yes No bilat LE -Description Aching Sharp,Throbbing ,Aching -Intensity 5 8 -Duration (hours) Chronic Chronic -Pain Behavior Guarding Facial Grimacing -Pain Aggravating Factors Debridement Debridement -Alleviating Factors/Interventions Will continue Will continue to monitor, to monitor, Emotional Emotional Support Support - Nurse 3 - General Ulcer D/C NN Start: 03/18/24 13:31 Freq: Status: Active Protocol: Activity Type Activity Date Activity User E-sign Co-sign Detail Recorded Client Recorded Date Recorded By Document 03/18/24 14:47 [id number] 03/18/24 14:48 Document 03/25/24 15:56 KW [id number] 03/25/24 15:56 Document 04/01/24 11:31 RB [id number] 04/01/24 11:33 RB 03/18/24 03/25/24 04/01/24 14:47 15:56 11:31 Wound Care Center Nurse 3 2. LLE ant -Ulcer Cleansing Rinsed/ Rinsed/ Irrigated with Irrigated with Saline Saline -Foul Odor after Cleansing No -Primary Dressing Applied Mepilex Border, Mepilex Border, Mepilex Border Promogran Promogran -Other Dressing hydrogel -Mepilex Border 1 1 1 -Promogran 1 1 1. RLE ant -Ulcer Cleansing Rinsed/ Rinsed/ Irrigated with Irrigated with Saline Saline -Foul Odor after Cleansing No -Primary Dressing Applied Mepilex Border, Mepilex Border C Hydrogel ($), Promogran Mepilex Border -Other Dressing promogran -Mepilex Border 1 1 1 -Promogran 1 Treatment Response Procedure Tolerated Well Pain Scale: 0-10 Numeric Is Patient Pain Free? Yes Yes Yes Teaching: Wound Center Dressing Your Wound -Person Taught Patient,Family -Teaching Method Discussion, Demonstration -Response to teaching Verbalize Understanding WC - Visit Discharge Discharge Condition Stable Stable Stable Ambulatory Status Ambulatory Ambulatory Ambulatory Transportation Private Auto Private Auto Private Auto Accompanied by daughter Medication Reconcilliation completed & Yes No No provided to patient/care provider Clinical Summary of Care Provided Yes Yes Yes Additional Wound Wound debrided: Right pretibial wound Laterality: Right Type of Debridement: Excisional debridement Anesthesia Used: 5% Lidocaine Gel and Cetacaine Depth: Down to and including healthy tissue and in the subcutaneous layer Percentage of wound debrided: 100 Instrument Used: 5mm curette Tissue Removed: Bioburden and nonviable tissue Severity: Fat Layer Exposed Amount of bleeding with debridement: Mild Bleeding Controlled with: Compression and gauze Patient tolerated procedure: Patient tolerated procedure well Charges/Coding Procedures Integumentary [id number]: [id number] [place] subq tissue 20 sq cm/< Assessment/Plan Assessment/Plan (1) Non-pressure chronic ulcer of right lower leg with fat layer exposed: CODE(S): L97.912 - Non-pressure chronic ulcer of unspecified part of right lower leg with fat layer exposed (2) Non-pressure chronic ulcer of left lower leg with fat layer exposed: CODE(S): L97.922 - Non-pressure chronic ulcer of unspecified part of left lower leg with fat layer exposed (3) Traumatic open wound of right lower leg: CODE(S): S81.801A - Unspecified open wound, right lower leg, initial encounter QUALIFIERS: Encounter type: subsequent encounter Qualified Code(s): S81.801D - Unspecified open wound, right lower leg, subsequent encounter (4) Traumatic open wound of left lower leg: CODE(S): S81.802A - Unspecified open wound, left lower leg, initial encounter QUALIFIERS: Encounter type: subsequent encounter Qualified Code(s): S81.802D - Unspecified open wound, left lower leg, subsequent encounter (5) Lumbar scoliosis: CODE(S): M41.9 - Scoliosis, unspecified QUALIFIERS: Scoliosis type: other secondary scoliosis Qualified Code(s): M41.56 - Other secondary scoliosis, lumbar region (6) Low back pain: CODE(S): M54.50 - Low back pain, unspecified (7) DDD (degenerative disc disease), lumbosacral: CODE(S): M51.37 - Other intervertebral disc degeneration, lumbosacral region (8) Hypothyroidism (acquired): CODE(S): E03.9 - Hypothyroidism, unspecified (9) Cataracts, bilateral: CODE(S): H26.9 - Unspecified cataract (10) History of tonsillectomy: CODE(S): Z90.89 - Acquired absence of other organs (11) History of IBS: CODE(S): Z87.19 - Personal history of other diseases of the digestive system (12) Former smoker: CODE(S): Z87.891 - Personal history of nicotine dependence (13) History of lumbar spinal fusion: CODE(S): Z98.1 - Arthrodesis status (14) History of hysterectomy: CODE(S): Z90.710 - Acquired absence of both cervix and uterus (15) History of cervical discectomy: CODE(S): Z98.890 - Other specified postprocedural states (16) History of total hip replacement: CODE(S): Z96.649 - Presence of unspecified artificial hip joint (17) Status post spinal disc removal: CODE(S): Z98.890 - Other specified postprocedural states PLAN: Plan This is a 74-year-old female who presented with traumatic wounds in both lower extremities. Although the patient does not relate significant swelling in her lower extremities, measures to prevent such swelling have been thoroughly discussed. The patient has been encouraged to elevate her lower extremities as much as possible. She has been advised to refrain from prolonged, idle sitting. Activity has been encouraged. The patient has been encouraged to optimize her nutritional intake. Her appetite is said to be recently depressed due to the recent loss of her . She has been provided samples of Frank, and encouraged to use a nutritional supplement on a daily basis until which time her appetite returns to normal. We are to implement the use of collagen hydrogel topically to the wound on the right pretibial surface, which is progressing well, and is nearly healed. We are to implement the use of collagenase Santyl topically to the wound on the left pretibial surface, which has failed to show significant improvement, and demonstrates persisting bioburden and nonviable tissue and moderate amount. A prescription has been provided for the collagenase Santyl, and instructions given as to the appropriate means of application on a daily basis. In addition, because the left pretibial ulceration has failed to progress, and the patient relates pain at this site, a swab culture has been obtained for aerobic and anaerobic bacterial growth. Results will be awaited. The patient is to return in 1 week for [email or web address] Total time: 26 minutes
[2024-04-08 11:09] VITALS: BP 126/68; PULSE 86; RESP 16; TEMP 36.6; BMI 19.7
--- NOTE | 2024-04-12 11:57 | PCM.WC.HP ---
History of Present Illness Date of Service: 04/08/24 Chief Complaint: Bilateral lower extremity traumatic wounds History of Wound: This is a 74-year-old female who presented with traumatic wounds to both lower extremities. The wounds are located on the pretibial surfaces bilaterally. The wound on the right pretibial surface occurred approximately 1 month prior to presentation, resulting when the patient bumped her leg against a trash bin. The wound has failed to heal appropriately. More recently, approximately 10 days prior to presentation, the patient dropped a box of spaghetti noodles onto the left pretibial surface, resulting in a wound which has failed to heal. The patient was seen by her primary care physician, Dr. Lundberg, 4 days prior to presentation, where a course of Keflex and doxycycline were initiated. The patient has completed her course of antibiotics. 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 The patient is mobile and active. She denies swelling in her legs. She sleeps on a flat surface at night. She denies a history of thrombophlebitis. The patient denies a history of congestive heart failure, myocardial infarction, diabetes mellitus, cerebrovascular accident, hypertension, renal disease, and pulmonary disease. She has a history of hypothyroidism. A limited venous duplex examination is noted to have been performed on October 26, 2022, examining only the right lower extremity, and revealing no evidence of thrombophlebitis. Valvular competence was not fully evaluated. [facility]LY [facility] Medical History Traumatic open wound of right lower leg Traumatic open wound of left lower leg Non-pressure chronic ulcer of left lower leg with fat layer exposed Non-pressure chronic ulcer of right lower leg with fat layer exposed Traumatic open wound of right lower leg with delayed healing Traumatic open wound of left lower leg with delayed healing Wears glasses Anxiety Alcohol use History of steroid therapy Easy bruising Back pain Injury of back Migraine headache Syncope History of IBS Former smoker Leg cramps History of edema History of stress test Cataracts, bilateral Arthritis Anemia Vitamin D deficiency, unspecified Hypothyroidism Home Medications ?Medication ?Instructions ?Recorded ?Last Taken ?Type lidocaine 5 % topical patch 2 patch topical DAILY 05/03/17 1 Day Ago History ~09/21/17 meloxicam 15 mg tablet 15 mg PO QDAY 05/03/17 09/22/17 History doxepin 10 mg capsule 10 mg PO QHS 12/16/19 Unknown History folic acid 400 mcg tablet 0.4 mg PO DAILY@0800 12/16/19 Unknown History linaclotide 145 mcg capsule 145 mcg PO DAILY 12/16/19 Unknown History loratadine 10 mg tablet 10 mg PO DAILY 12/16/19 Unknown History estradiol 0.1 mg/24 hr semiweekly 2 patch transdermal MOTH 03/15/20 Unknown History transdermal patch (Bessie) acetaminophen 500 mg tablet 1,000 mg PO BID 01/06/22 Unknown History vitamin [id number] B1 100 mg-1 1 ml IM .QMO 01/06/22 Unknown History mg/mL intramuscular solution gabapentin 100 mg capsule 300 mg PO BID 07/19/23 Unknown History cephalexin 500 mg capsule 500 mg PO BID 03/18/24 Unknown History doxycycline hyclate 100 mg tablet 100 mg PO BID 03/18/24 Unknown History levothyroxine 50 mcg tablet 50 mcg PO DAILY 03/18/24 Unknown History Allergy/AdvReac Type Severity Reaction Status Date / Time No Known Allergies Allergy Verified 07/19/23 14:03 Family History Mother Rheumatoid arthritis Father Pancreatic cancer Cancer Grandfather Myocardial infarction Grandmother Thyroid disorder Surgical History Status post spinal disc removal History of tonsillectomy History of lumbar spinal fusion History of total hip replacement History of hysterectomy History of cervical discectomy Social History household members: spouse Smoking Status: Never smoker alcohol intake: current alcohol intake frequency: a few times a week Alcohol type: wine substance use type: does not use what type of physical activity do you participate in: other details: physical therapy frequency: 1-2 times per week Vital Signs Vital Signs Vital Signs: Weight Weight: 101 lb Body Mass Index (BMI) 19.7 Physical Exam Const alert, oriented x3, no apparent distress, average body habitus and no limitations Constitutional Narrative: The patient's BMI is 19.7. She is thin body habitus. General Appearance: cooperative, comfortable, well kempt and well developed Orientation / Consciousness: awake, oriented to person, oriented to place and oriented to time Exam Limitations: no limitations HEENT normocephalic, head/scalp atraumatic and hearing grossly normal bilaterally Head and Scalp: normal to inspection, normocephalic and atraumatic Face and Sinus: normal facial exam Nose: external nose normal External Ear: external ears normal Eyes EOMs intact bilaterally General Eye: normal appearance of both eyes Neck full ROM Resp normal respiratory effort, normal air movement, no retractions and no use of accessory muscles Effort and Inspection: able to speak in complete sentences Extremity no calf tenderness General Extremity: Negative for clubbing or cyanosis Skin Wound Narrative: The patient's lower extremities appear warm and well-perfused. Pedal pulses are easily palpable bilaterally. There is no significant swelling or edema in the patient's lower extremities. A wound is noted on the right pretibial surface. It is full-thickness in nature, and has diminished in size significantly. It is generally pink and healthy in appearance, with a small amount of bioburden, and is nearly completely healed. Only a very small eschar remains. Dimensions are documented elsewhere. There is no sign of infection or cellulitis. A wound is also noted in the left pretibial surface. The wound is full-thickness in nature. There is a moderate amount of bioburden and nonviable tissue. Dimensions are documented elsewhere. There is no sign of infection or cellulitis. Wound margins are well beveled. However, little progress has been noted in the status of the wound on the left pretibial surface. Hair: normal Neuro oriented x3, CN's II-XII intact bilaterally, moves all extremities, no focal motor deficits and no sensory deficits noted Sensorium / Orientation: awake, alert, oriented to person, oriented to place and oriented to time Psych Appearance: grossly normal and appropriate Attitude: calm Activity / Motor Behavior: appropriate eye contact Speech: normal speech Mood & Affect: euthymic mood Thought Process: normal thought process Thought Content: normal thought content Attention / Concentration: attention grossly intact Debridement Note Debridement Note Wound debrided: Left pretibial wound Laterality: Left Type of Debridement: Excisional debridement Anesthesia Used: 5% Lidocaine Gel and Cetacaine Depth: Down to and including healthy tissue and in the subcutaneous layer Percentage of wound debrided: 100 Instrument Used: 5mm curette Tissue Removed: Bioburden and nonviable tissue Severity: Fat Layer Exposed Amount of bleeding with debridement: Mild Bleeding Controlled with: Compression and gauze Patient tolerated procedure: Patient tolerated procedure well Post-Debridement Measurements and Additional Note: Post-Debridement Measurements/Treatment WC - Nurse 1 - General Ulcer Assessment Start: 03/18/24 13:31 Freq: Status: Active Protocol: QUIANA Activity Type Activity Date Activity User E-sign Co-sign Detail Recorded Client Recorded Date Recorded By Document 03/18/24 13:38 RB [id number] 03/18/24 13:50 RB Document 03/25/24 15:15 RB [id number] 03/25/24 15:23 RB Document 04/01/24 10:29 KW [id number] 04/01/24 10:43 KW 03/18/24 03/25/24 04/01/24 13:38 15:15 10:29 WC - Today's Visit Information Type of service Initial Visit Follow-up Visit Follow-up Visit (Physician/YEAST CULTURE DEVELOPER (Physician/YEAST CULTURE DEVELOPER ) ) Arrival Mode Ambulatory Ambulatory Ambulatory Transfer Assistance None None Patient Identification Verified (Name & Yes Yes Yes ) Patient Requires Transmission-Based No No Precautions Height and Weight Height 5 ft Weight 101 lb Weight in Pounds 101.0 lbs Body Mass Index (BMI) 19.7 19.7 19.7 BMI Classification Normal Normal Normal BSA - Millie 1.40 Vital Signs Temperature (97.8 F-99.1 F) 96.4 F L 95.6 F L 97.3 F L Temperature Source Temporal Temporal Temporal Pulse Rate (60-100) 67 75 68 Pulse Location Monitor Monitor Monitor Respiratory Rate (12-18) 18 18 18 Respiratory rate source Observation Observation Observation Oxygen Delivery Method Room Air Blood Pressure (90/60-120/80) 154/48 H 150/63 H 150/50 H Blood Pressure Mean 83 92 83 Source Monitor Monitor Monitor Position Semi-Fowlers Semi-Fowlers Semi-Fowlers Blood Pressure Location Left Arm Left Arm Left Arm History Since Last Visit- (Skip if this is Patient's initial visit) Have you changed medications since your No No No last visit? Any new allergies or adverse reactions No No No Had a fall/change in ADL's that may No No No increase risk of falls Signs or symptoms of abuse and/or No No No neglect since last visit Have you been in the hospital since your No No No last visit? Has dressing in place as prescribed Yes Yes Yes Has compression in place as prescribed No No N/A Has offloadiing in place as prescribed No No N/A Experienced any changes in pain level or No No No management Left Footwear Regular Shoe Right Footwear Regular Shoe Pain Scale: 0-10 Numeric Is Patient Pain Free? No Yes Yes bilat LE -Description Dull,Throbbing, Aching -Intensity 3 -Duration (hours) Acute -Pain Behavior Withdrawal from Touch -Pain Aggravating Factors Exercise/ Activity, Debridement -Alleviating Factors/Interventions Medication -Effectiveness of Alleviating Factor/ Minimally Intervention effective Lower Extremity Assessment/ Foot Assessment/ Toe Nail Assessment Right -Posterior Tibial Palpable Yes -Dorsalis Pedis Palpable Yes -Extremity Color Normal -Hair Growth on Legs Yes -Hair Growth on Toes No -Temperature of Extremity Warm -Capillary Refill Less than 3 Seconds -Dependent Rubor No -Blanched when Elevated No -Lipodermatosclerosis No -Other Deformity No -Prior Foot Ulcer No -Charcot Joint No -Prior Amputation No -Thick No -Discolored No -Deformed No -Improper Length & Hygeine Yes Left -Posterior Tibial Palpable Yes -Dorsalis Pedis Palpable Yes -Extremity Color Normal -Hair Growth on Legs Yes -Hair Growth on Toes No -Temperature of Extremity Warm -Capillary Refill Less than 3 Seconds -Dependent Rubor No -Blanched when Elevated No -Lipodermatosclerosis No -Other Deformity No -Prior Foot Ulcer No -Charcot Joint No -Prior Amputation No -Thick No -Discolored No -Deformed No -Improper Length & Hygeine Yes Neuropathy Assessment Feet - Top Side and Bottom <Entered> (a) Communication Assessment Preferred language American Medical Director Of Hospice Required No Right Hearing Abillity Normal Left Hearing Abillity Normal Visual Assistive Devices Glasses Teaching Assessment Preferences Verbal,Written, Demonstration Barriers to Learning None Readiness To Learn Good Willingness to Engage in Self Management Med Activies Readiness to Engage in Self Management Med Activities Anxiety Level Calm Cooperation Cooperative Perception Coherent Interest in Health Problem Asks Questions Education Importance Acknowledges Need Does Patient Smoke tobacco or other No substances Smoking Status Never smoker Is Patient Diabetic No Functional Assessment Recent Decline in Ability to Perform Denies Any Declines Assistive Device With Patient No Culture/Christian/Link Trainer Maintenance Man Cultural/Christian Needs that may affect No Treatment Plan Would you allow our hospital medical records custodian to No meet you for the purpose of spiritual/ emotional support? Link Trainer Maintenance Man to contact place of sikhism No (a) 1 - + throughout WC - Nurse 1 - General Ulcer Measurement Start: 03/18/24 13:31 Freq: Status: Active Protocol: Activity Type Activity Date Activity User E-sign Co-sign Detail Recorded Client Recorded Date Recorded By Document 03/18/24 13:38 RB [id number] 03/18/24 13:50 RB Document 03/25/24 15:15 RB [id number] 03/25/24 15:23 RB Document 04/01/24 10:29 KW [id number] 04/01/24 10:43 KW 03/18/24 03/25/24 04/01/24 13:38 15:15 10:29 Wound Center Nurse 1 2. LLE ant -Combined with other wound No No -Current Size (cm) - Length 3 2.7 2.2 -Current Size (cm) - Width 3.4 3.5 3.8 -Current Size (cm) - Depth 0.1 0.1 0.1 -Total Square Cm 10.2 9.45 8.36 -Photo Taken Yes -Tunneling No No -Undermining/Tunneling No No -Circular Undermining No No -Exudate Amt Medium Medium Large -Exudate Type Serosanguineous Serosanguineous Purulent -Wound Margin Distinct, Distinct, Distinct, Outline Outline Outline Attached Attached Attached -Granulation Amt Medium (34-66%) Medium (34-66%) Small (1-33%) -Granulation Quality Lincroft Lincroft Lincroft -Slough/Fibrin Yes Yes -Necrosis Amt Medium (34-66%) Medium (34-66%) Large (67-100%) -Necrotic Tissue Type Adherent Slough Adherent Slough Adherent Slough -Structure Exposed N/A N/A -Texture (Joyce-wound Skin Appearance) Assessed, Assessed, Assessed Friable Scarring -Moisture (Joyce-wound Skin Appearance) Assessed Assessed Assessed -Color (Joyce-wound Skin Appearance) Assessed Assessed, Assessed Hemosiderin Staining -Temperature (Joyce-wound Skin No Abnormality No Abnormality No Abnormality Appearance) (Pt Warm) (Pt Warm) (Pt Warm) -Tenderness on Palpation (Joyce-wound No No No Skin Appearance) -Ulcer Cleansing Wound Cleanser Wound Cleanser Soap and Water -Foul Odor after Cleansing No No No -Anesthetic Used 5% Lidocaine 5% Lidocaine 4% Lidocaine Gel Gel Solution,5% Lidocaine Gel 1. RLE ant -Combined with other wound No No -Current Size (cm) - Length 0.5 0.6 0.1 -Current Size (cm) - Width 1.4 1 0.1 -Current Size (cm) - Depth 0.1 0.1 0.1 -Total Square Cm 0.70 0.6 0.01 -Photo Taken Yes -Tunneling No No -Undermining/Tunneling No No -Circular Undermining No No -Exudate Amt Medium Medium None Present -Exudate Type Serosanguineous Serosanguineous -Wound Margin Distinct, Distinct, Distinct, Outline Outline Outline Attached Attached Attached -Granulation Amt Medium (34-66%) Medium (34-66%) Small (1-33%) -Granulation Quality Lincroft Lincroft Lincroft -Slough/Fibrin Yes Yes -Necrosis Amt Medium (34-66%) Medium (34-66%) -Necrotic Tissue Type Adherent Slough Adherent Slough -Structure Exposed N/A N/A -Texture (Joyce-wound Skin Appearance) Assessed, Assessed, Assessed Friable Scarring -Moisture (Joyce-wound Skin Appearance) Assessed Assessed Assessed -Color (Joyce-wound Skin Appearance) No Abnormality Hemosiderin Assessed Staining -Temperature (Joyce-wound Skin No Abnormality No Abnormality No Abnormality Appearance) (Pt Warm) (Pt Warm) (Pt Warm) -Tenderness on Palpation (Joyce-wound No No No Skin Appearance) -Ulcer Cleansing Wound Cleanser Wound Cleanser Soap and Water -Foul Odor after Cleansing No No No -Anesthetic Used 5% Lidocaine 5% Lidocaine 5% Lidocaine Gel Gel Gel Lower Limb Edema Present Yes Right Calf (cm) 27.5 Right Ankle (cm) 16 Left Calf (cm) 28.5 Left Ankle (cm) 17.6 WC - Nurse 2 - General Ulcer CM Notes Start: 03/18/24 13:31 Freq: Status: Active Protocol: Activity Type Activity Date Activity User E-sign Co-sign Detail Recorded Client Recorded Date Recorded By Document 03/18/24 14:08 DS [id number] 03/18/24 14:16 DS Document 03/25/24 15:44 DS [id number] 03/25/24 15:49 DS Edit Result 03/25/24 15:44 DS (1) [id number] 03/25/24 16:08 DS Document 04/01/24 10:50 DS [id number] 04/01/24 11:10 DS (1) 1. RLE ant - Debridement - Subq, 1st 20sq cm Yes => No 03/18/24 03/25/24 04/01/24 14:08 15:44 10:50 Wound Center Nurse 2 2. LLE ant -Time 14:08 15:44 10:54 -Correct Patient Yes Yes Yes -Correct Side, Site, Position Yes Yes Yes -Correct Procedure Yes Yes Yes -Procedure Performed Yes Yes Yes -Type of Procedure Debridement Debridement Debridement -Clinical Debridement Subcutaneous Subcutaneous Subcutaneous -Tissue Removed Subcutaneous Subcutaneous Subcutaneous -Post Debridement (cm) - Length 3.2 3.0 2.5 -Post Debridement (cm) - Width 4.0 4.1 4.1 -Post Debridement (cm) - Depth 0.1 0.1 0.1 -Total Square (Post) (cm) 12.80 12.30 10.25 -Area of Debridement (cm) - Length 3.2 3.0 2.5 -Area of Debridement (cm) - Width 4.0 4.1 4.1 -Total Square (Area) (cm) 12.80 12.30 10.25 -Tunneling No No No -Undermining/Tunneling No No No -Circular Undermining No No No -Wound/Ulcer Outcome Not Healed Not Healed Not Healed -Ulcer Cleansing Rinsed/ Rinsed/ Rinsed/ Irrigated with Irrigated with Irrigated with Saline Saline Saline -Bioengineered Tissue No No No -Bleeding Controlled with Pressure Pressure Pressure -Treatment Response Procedure Procedure Procedure Tolerated Well Tolerated Well Tolerated Well -Debridement - Subq, 1st 20sq cm Yes Yes Yes 1. RLE ant -Time 14:08 15:45 10:55 -Correct Patient Yes Yes Yes -Correct Side, Site, Position Yes Yes Yes -Correct Procedure Yes Yes Yes -Procedure Performed Yes Yes Yes -Type of Procedure Debridement Debridement Debridement -Clinical Debridement Subcutaneous Subcutaneous Subcutaneous -Tissue Removed Subcutaneous Subcutaneous Subcutaneous -Post Debridement (cm) - Length 1.4 0.6 0.6 -Post Debridement (cm) - Width 1.5 0.9 0.8 -Post Debridement (cm) - Depth 0.1 0.1 0.1 -Total Square (Post) (cm) 2.10 0.54 0.48 -Area of Debridement (cm) - Length 1.4 0.6 0.6 -Area of Debridement (cm) - Width 1.5 0.9 0.8 -Total Square (Area) (cm) 2.10 0.54 0.48 -Tunneling No No No -Undermining/Tunneling No No No -Circular Undermining No No No -Wound/Ulcer Outcome Not Healed Not Healed Not Healed -Ulcer Cleansing Rinsed/ Rinsed/ Rinsed/ Irrigated with Irrigated with Irrigated with Saline Saline Saline -Bioengineered Tissue No No No -Bleeding Controlled with Pressure Pressure Pressure -Treatment Response Procedure Procedure Procedure Tolerated Well Tolerated Well Tolerated Well -Debridement - Subq, 1st 20sq cm No No No Pain Scale: 0-10 Numeric Is Patient Pain Free? No Yes No bilat LE -Description Aching Sharp,Throbbing ,Aching -Intensity 5 8 -Duration (hours) Chronic Chronic -Pain Behavior Guarding Facial Grimacing -Pain Aggravating Factors Debridement Debridement -Alleviating Factors/Interventions Will continue Will continue to monitor, to monitor, Emotional Emotional Support Support WC - Nurse 3 - General Ulcer D/C NN Start: 03/18/24 13:31 Freq: Status: Active Protocol: Activity Type Activity Date Activity User E-sign Co-sign Detail Recorded Client Recorded Date Recorded By Document 03/18/24 14:47 [id number] 03/18/24 14:48 Document 03/25/24 15:56 KW [id number] 03/25/24 15:56 Document 04/01/24 11:31 RB [id number] 04/01/24 11:33 RB 03/18/24 03/25/24 04/01/24 14:47 15:56 11:31 Wound Care Center Nurse 3 2. LLE ant -Ulcer Cleansing Rinsed/ Rinsed/ Irrigated with Irrigated with Saline Saline -Foul Odor after Cleansing No -Primary Dressing Applied Mepilex Border, Mepilex Border, Mepilex Border Promogran Promogran -Other Dressing hydrogel -Mepilex Border 1 1 1 -Promogran 1 1 1. RLE ant -Ulcer Cleansing Rinsed/ Rinsed/ Irrigated with Irrigated with Saline Saline -Foul Odor after Cleansing No -Primary Dressing Applied Mepilex Border, Mepilex Border C Hydrogel ($), Promogran Mepilex Border -Other Dressing promogran -Mepilex Border 1 1 1 -Promogran 1 Treatment Response Procedure Tolerated Well Pain Scale: 0-10 Numeric Is Patient Pain Free? Yes Yes Yes Teaching: Wound Center Dressing Your Wound -Person Taught Patient,Family -Teaching Method Discussion, Demonstration -Response to teaching Verbalize Understanding WC - Visit Discharge Discharge Condition Stable Stable Stable Ambulatory Status Ambulatory Ambulatory Ambulatory Transportation Private Auto Private Auto Private Auto Accompanied by daughter Medication Reconcilliation completed & Yes No No provided to patient/care provider Clinical Summary of Care Provided Yes Yes Yes Additional Wound Wound debrided: Right pretibial wound Laterality: Right Type of Debridement: Excisional debridement Anesthesia Used: 5% Lidocaine Gel and Cetacaine Depth: Down to and including healthy tissue and in the subcutaneous layer Percentage of wound debrided: 100 Instrument Used: 5mm curette Tissue Removed: Bioburden and nonviable tissue Severity: Fat Layer Exposed Amount of bleeding with debridement: Mild Bleeding Controlled with: Compression and gauze Patient tolerated procedure: Patient tolerated procedure well Charges/Coding Procedures Integumentary [id number]: [id number] Violette subq tissue 20 sq cm/< Assessment/Plan Assessment/Plan (1) Non-pressure chronic ulcer of right lower leg with fat layer exposed: CODE(S): L97.912 - Non-pressure chronic ulcer of unspecified part of right lower leg with fat layer exposed (2) Non-pressure chronic ulcer of left lower leg with fat layer exposed: CODE(S): L97.922 - Non-pressure chronic ulcer of unspecified part of left lower leg with fat layer exposed (3) Traumatic open wound of right lower leg: CODE(S): S81.801A - Unspecified open wound, right lower leg, initial encounter QUALIFIERS: Encounter type: subsequent encounter Qualified Code(s): S81.801D - Unspecified open wound, right lower leg, subsequent encounter (4) Traumatic open wound of left lower leg: CODE(S): S81.802A - Unspecified open wound, left lower leg, initial encounter QUALIFIERS: Encounter type: subsequent encounter Qualified Code(s): S81.802D - Unspecified open wound, left lower leg, subsequent encounter (5) Lumbar scoliosis: CODE(S): M41.9 - Scoliosis, unspecified QUALIFIERS: Scoliosis type: other secondary scoliosis Qualified Code(s): M41.56 - Other secondary scoliosis, lumbar region (6) Low back pain: CODE(S): M54.50 - Low back pain, unspecified (7) DDD (degenerative disc disease), lumbosacral: CODE(S): M51.37 - Other intervertebral disc degeneration, lumbosacral region (8) Hypothyroidism (acquired): CODE(S): E03.9 - Hypothyroidism, unspecified (9) Cataracts, bilateral: CODE(S): H26.9 - Unspecified cataract (10) History of tonsillectomy: CODE(S): Z90.89 - Acquired absence of other organs (11) History of IBS: CODE(S): Z87.19 - Personal history of other diseases of the digestive system (12) Former smoker: CODE(S): Z87.891 - Personal history of nicotine dependence (13) History of lumbar spinal fusion: CODE(S): Z98.1 - Arthrodesis status (14) History of hysterectomy: CODE(S): Z90.710 - Acquired absence of both cervix and uterus (15) History of cervical discectomy: CODE(S): Z98.890 - Other specified postprocedural states (16) History of total hip replacement: CODE(S): Z96.649 - Presence of unspecified artificial hip joint (17) Status post spinal disc removal: CODE(S): Z98.890 - Other specified postprocedural states PLAN: Plan This is a 74-year-old female who presented with traumatic wounds in both lower extremities. Although the patient does not relate significant swelling in her lower extremities, measures to prevent such swelling have been thoroughly discussed. The patient has been encouraged to elevate her lower extremities as much as possible. She has been advised to refrain from prolonged, idle sitting. Activity has been encouraged. The patient has been encouraged to optimize her nutritional intake. Her appetite is said to be recently depressed due to the recent loss of her . She has been provided samples of Frank, and encouraged to use a nutritional supplement on a daily basis until which time her appetite returns to normal. We are to continue the use of collagen hydrogel topically to the wound on the right pretibial surface, which is progressing well, and is nearly healed. We are to continue the use of collagenase Santyl topically to the wound on the left pretibial surface, which has failed to show significant improvement, and demonstrates persisting bioburden and nonviable tissue in moderate amount. A prescription has been provided for the collagenase Santyl, and instructions given as to the appropriate means of application on a daily basis. In addition, because the left pretibial ulceration has failed to progress, and the patient relates pain at this site, a swab culture was obtained last week for aerobic and anaerobic bacterial growth. Culture results were negative, and no additional measures are to be undertaken at this time. The patient is to return in 1 week for reassessment. Total time: 24 minutes
--- NOTE | 2024-06-18 12:12 | PCM.WC.HP ---
History of Present Illness Date of Service: 06/17/24 Chief Complaint: Bilateral lower extremity traumatic wounds History of Wound: This is a 74-year-old female who presented with traumatic wounds to both lower extremities. The wounds were located on the pretibial surfaces bilaterally. The wound on the right pretibial surface occurred approximately 1 month prior to presentation, resulting when the patient bumped her leg against a trash bin. The wound had failed to heal appropriately. More recently, approximately 10 days prior to presentation, the patient dropped a box of spaghetti noodles onto the left pretibial surface, resulting in a wound which had failed to heal. The patient was seen by her primary care physician, Dr. Lundberg, 4 days prior to presentation, where a course of Keflex and doxycycline were initiated. The patient has completed her course of antibiotics. 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 The patient is mobile and active. She denies swelling in her legs. She sleeps on a flat surface at night. She denies a history of thrombophlebitis. The patient denies a history of congestive heart failure, myocardial infarction, diabetes mellitus, cerebrovascular accident, hypertension, renal disease, and pulmonary disease. She has a history of hypothyroidism. A limited venous duplex examination is noted to have been performed on October 26, 2022, examining only the right lower extremity, and revealing no evidence of thrombophlebitis. Valvular competence was not fully evaluated. [facility] Medical History Traumatic open wound of right lower leg Traumatic open wound of left lower leg Non-pressure chronic ulcer of left lower leg with fat layer exposed Non-pressure chronic ulcer of right lower leg with fat layer exposed Traumatic open wound of right lower leg with delayed healing Traumatic open wound of left lower leg with delayed healing Wears glasses Anxiety Alcohol use History of steroid therapy Easy bruising Back pain Injury of back Migraine headache Syncope History of IBS Former smoker Leg cramps History of edema History of stress test Cataracts, bilateral Arthritis Anemia Vitamin D deficiency, unspecified Hypothyroidism Home Medications ?Medication ?Instructions ?Recorded ?Last Taken ?Type lidocaine 5 % topical patch 2 patch topical DAILY 05/03/17 1 Day Ago History ~09/21/17 meloxicam 15 mg tablet 15 mg PO QDAY 05/03/17 09/22/17 History doxepin 10 mg capsule 10 mg PO QHS 12/16/19 Unknown History folic acid 400 mcg tablet 0.4 mg PO DAILY@0800 12/16/19 Unknown History linaclotide 145 mcg capsule 145 mcg PO DAILY 12/16/19 Unknown History estradiol 0.1 mg/24 hr semiweekly 2 patch transdermal MOTH 03/15/20 Unknown History transdermal patch (Bessie) acetaminophen 500 mg tablet 1,000 mg PO BID 01/06/22 Unknown History vitamin [id number] B1 100 mg-1 1 ml IM .QMO 01/06/22 Unknown History mg/mL intramuscular solution levothyroxine 50 mcg tablet 50 mcg PO DAILY 03/18/24 Unknown History gabapentin 100 mg capsule 100 mg PO BID 05/07/24 Unknown History loratadine 10 mg tablet 10 mg PO .prn 05/07/24 Unknown History sulfamethoxazole 800 1 tab PO Q12H #14 tabs 05/27/24 Unknown Rx mg-trimethoprim 160 mg tablet (Bactrim DS) Allergy/AdvReac Type Severity Reaction Status Date / Time No Known Allergies Allergy Verified 05/07/24 11:09 Family History Mother Rheumatoid arthritis Father Pancreatic cancer Cancer Grandfather Myocardial infarction Grandmother Thyroid disorder Surgical History Status post spinal disc removal History of tonsillectomy History of lumbar spinal fusion History of total hip replacement History of hysterectomy History of cervical discectomy Social History household members: spouse Smoking Status: Never smoker alcohol intake: current alcohol intake frequency: a few times a week Alcohol type: wine substance use type: does not use what type of physical activity do you participate in: other details: physical therapy frequency: 1-2 times per week Vital Signs Vital Signs Vital Signs: Weight Weight: 101 lb Body Mass Index (BMI) 19.7 Physical Exam Const alert, oriented x3, no apparent distress, average body habitus and no limitations Constitutional Narrative: The patient's BMI is 19.7. She is of thin body habitus. General Appearance: cooperative, comfortable, well kempt and well developed Orientation / Consciousness: awake, oriented to person, oriented to place and oriented to time Exam Limitations: no limitations HEENT normocephalic, head/scalp atraumatic and hearing grossly normal bilaterally Head and Scalp: normal to inspection, normocephalic and atraumatic Face and Sinus: normal facial exam Nose: external nose normal External Ear: external ears normal Eyes EOMs intact bilaterally General Eye: normal appearance of both eyes Neck full ROM Resp normal respiratory effort, normal air movement, no retractions and no use of accessory muscles Effort and Inspection: able to speak in complete sentences Extremity no calf tenderness General Extremity: Negative for clubbing or cyanosis Skin Wound Narrative: The patient's lower extremities appear warm and well-perfused. Pedal pulses are easily palpable bilaterally. There is no significant swelling or edema in the patient's lower extremities. The wound on the right pretibial surface remains completely healed and epithelialized. A wound remains on the left pretibial surface. The wound is full-thickness in nature. There is moderate bioburden. Dimensions are documented elsewhere. The wound appears to have decreased in size since the patient's last visit, with evidence of peripheral epithelialization. Dimensions are documented elsewhere. There is no sign of infection or cellulitis. Wound margins are well beveled. Hair: normal Neuro oriented x3, CN's II-XII intact bilaterally, moves all extremities, no focal motor deficits and no sensory deficits noted Sensorium / Orientation: awake, alert, oriented to person, oriented to place and oriented to time Speech: speech normal Psych Appearance: grossly normal and appropriate Attitude: calm Activity / Motor Behavior: appropriate eye contact Speech: normal speech Mood & Affect: euthymic mood Thought Process: normal thought process Thought Content: normal thought content Attention / Concentration: attention grossly intact Debridement Note Debridement Note Wound debrided: Left pretibial wound Laterality: Left Type of Debridement: Excisional debridement Anesthesia Used: 5% Lidocaine Gel and Cetacaine Depth: Down to and including healthy tissue and in the subcutaneous layer Percentage of wound debrided: 100 Instrument Used: 3mm curette Tissue Removed: Moderate amount of bioburden Severity: Fat Layer Exposed Amount of bleeding with debridement: Mild Bleeding Controlled with: Compression and gauze Patient tolerated procedure: Patient tolerated procedure well Post-Debridement Measurements and Additional Note: Post-Debridement Measurements/Treatment WC - Nurse 1 - General Ulcer Assessment Start: 06/10/24 14:46 Freq: Status: Active Protocol: .AIMEE Activity Type Activity Date Activity User E-sign Co-sign Detail Recorded Client Recorded Date Recorded By Document 06/10/24 14:47 KW [id number] 06/10/24 14:58 06/10/24 14:47 - Today's Visit Information Type of service Follow-up Visit (Physician/CHECK CASHIER ) Arrival Mode Ambulatory Accompanied by daughter Patient Identification Verified (Name & Yes ) Height and Weight Body Mass Index (BMI) 19.7 BMI Classification Normal Vital Signs Temperature (97.8 F-99.1 F) 81 F L Temperature Source Temporal Pulse Rate (60-100) 81 Pulse Location Monitor Respiratory Rate (12-18) 18 Respiratory rate source Observation Oxygen Delivery Method Room Air Blood Pressure (90/60-120/80) 139/68 H Blood Pressure Mean 91 Source Monitor Position Sitting Blood Pressure Location Right Arm History Since Last Visit- (Skip if this is Patient's initial visit) Have you changed medications since your No last visit? Any new allergies or adverse reactions No Had a fall/change in ADL's that may No increase risk of falls Signs or symptoms of abuse and/or No neglect since last visit Have you been in the hospital since your No last visit? Has dressing in place as prescribed Yes Has compression in place as prescribed Yes Has offloadiing in place as prescribed N/A Experienced any changes in pain level or No management Left Footwear Regular Shoe Right Footwear Regular Shoe Pain Scale: 0-10 Numeric Is Patient Pain Free? Yes - Nurse 1 - General Ulcer Measurement Start: 06/10/24 14:46 Freq: Status: Active Protocol: Activity Type Activity Date Activity User E-sign Co-sign Detail Recorded Client Recorded Date Recorded By Document 06/10/24 14:47 KW [id number] 06/10/24 14:58 06/10/24 14:47 Wound Center Nurse 1 2. LLE ant -Current Size (cm) - Length 2 -Current Size (cm) - Width 1.8 -Current Size (cm) - Depth 0.1 -Total Square Cm 3.6 -Date of Last Picture (Recall this 06/10/24 field) -Exudate Amt Large -Exudate Type Yellow/Green -Wound Margin Distinct, Outline Attached -Granulation Amt Large (67-100%) -Granulation Quality [place] -Necrosis Amt Large (67-100%) -Necrotic Tissue Type Adherent Slough -Texture (Joyce-wound Skin Appearance) Assessed -Moisture (Joyce-wound Skin Appearance) Assessed -Color (Joyce-wound Skin Appearance) Assessed, Ecchymosis -Temperature (Joyce-wound Skin No Abnormality Appearance) (Pt Warm) -Tenderness on Palpation (Joyce-wound No Skin Appearance) -Ulcer Cleansing Soap and Water -Foul Odor after Cleansing No -Anesthetic Used 5% Lidocaine Gel WC - Nurse 2 - General Ulcer CM Notes Start: 06/10/24 14:46 Freq: Status: Active Protocol: Activity Type Activity Date Activity User E-sign Co-sign Detail Recorded Client Recorded Date Recorded By Document 06/10/24 15:43 DS [id number] 06/10/24 15:47 DS 06/10/24 15:43 Wound Center Nurse 2 -Time 15:43 -Correct Patient Yes -Correct Side, Site, Position Yes -Correct Procedure Yes -Procedure Performed Yes -Type of Procedure Debridement -Clinical Debridement Subcutaneous -Tissue Removed Subcutaneous -Post Debridement (cm) - Length 2.0 -Post Debridement (cm) - Width 1.9 -Post Debridement (cm) - Depth 0.1 -Total Square (Post) (cm) 3.80 -Area of Debridement (cm) - Length 2.0 -Area of Debridement (cm) - Width 1.9 -Total Square (Area) (cm) 3.80 -Tunneling No -Undermining/Tunneling No -Circular Undermining No -Wound/Ulcer Outcome Not Healed -Ulcer Cleansing Rinsed/ Irrigated with Saline -Foul Odor after Cleansing No -Bioengineered Tissue No -Bleeding Controlled with Pressure -Treatment Response Procedure Tolerated Well -Debridement - Subq, 1st 20sq cm Yes Pain Scale: 0-10 Numeric Is Patient Pain Free? Yes Charges/Coding Procedures Integumentary [id number]: [id number] [place] subq tissue 20 sq cm/< Assessment/Plan Assessment/Plan (1) Non-pressure chronic ulcer of left lower leg with fat layer exposed: CODE(S): L97.922 - Non-pressure chronic ulcer of unspecified part of left lower leg with fat layer exposed (2) Traumatic open wound of left lower leg: CODE(S): S81.802A - Unspecified open wound, left lower leg, initial encounter QUALIFIERS: Encounter type: subsequent encounter Qualified Code(s): S81.802D - Unspecified open wound, left lower leg, subsequent encounter (3) Non-pressure chronic ulcer of right lower leg with fat layer exposed: CODE(S): L97.912 - Non-pressure chronic ulcer of unspecified part of right lower leg with fat layer exposed (4) Traumatic open wound of right lower leg: CODE(S): S81.801A - Unspecified open wound, right lower leg, initial encounter QUALIFIERS: Encounter type: subsequent encounter Qualified Code(s): S81.801D - Unspecified open wound, right lower leg, subsequent encounter (5) Lumbar scoliosis: CODE(S): M41.9 - Scoliosis, unspecified QUALIFIERS: Scoliosis type: other secondary scoliosis Qualified Code(s): M41.56 - Other secondary scoliosis, lumbar region (6) Low back pain: CODE(S): M54.50 - Low back pain, unspecified (7) DDD (degenerative disc disease), lumbosacral: CODE(S): M51.37 - Other intervertebral disc degeneration, lumbosacral region (8) Hypothyroidism (acquired): CODE(S): E03.9 - Hypothyroidism, unspecified (9) Cataracts, bilateral: CODE(S): H26.9 - Unspecified cataract (10) History of tonsillectomy: CODE(S): Z90.89 - Acquired absence of other organs (11) History of IBS: CODE(S): Z87.19 - Personal history of other diseases of the digestive system (12) Former smoker: CODE(S): Z87.891 - Personal history of nicotine dependence (13) History of lumbar spinal fusion: CODE(S): Z98.1 - Arthrodesis status (14) History of hysterectomy: CODE(S): Z90.710 - Acquired absence of both cervix and uterus (15) History of cervical discectomy: CODE(S): Z98.890 - Other specified postprocedural states (16) History of total hip replacement: CODE(S): Z96.649 - Presence of unspecified artificial hip joint (17) Status post spinal disc removal: CODE(S): Z98.890 - Other specified postprocedural states PLAN: Plan This is a 74-year-old female who presented with traumatic wounds in both lower extremities. Although the patient does not relate significant swelling in her lower extremities, measures to prevent such swelling have been thoroughly discussed. The patient has been encouraged to elevate her lower extremities as much as possible. She has been advised to refrain from prolonged, idle sitting. Activity has been encouraged. The patient has been encouraged to optimize her nutritional intake. Her appetite is said to be recently depressed due to the recent loss of her . She has been provided samples of Frank, and encouraged to use a nutritional supplement on a daily basis until which time her appetite returns to normal. Because the patient's wound had failed to progress in recent weeks, a swab culture was obtained for aerobic and anaerobic bacterial growth. Culture results were positive for Acinetobacter ursingii, Staphylococcus epidermidis, and Kocuria varians. In response, the patient was provided with a prescription for Bactrim double strength to be taken twice daily for a total of 7 days. The patient has completed her course of antibiotics. We are to continue the use of Promogran, which will be applied topically on a daily basis. The patient has been provided the product for use, and has been instructed in the appropriate means of application. The left lower extremity wound appears to have diminished in size within the last week. A noninvasive lower extremity arterial study was performed on June 13, 2024, the results of which revealed no evidence of significant arterial occlusive disease in the lower extremities. Laboratory studies have been recently obtained by the patient's primary care physician, the results of which have been reviewed. It is also understood that the patient's primary care physician has scheduled the patient for an MRI of her left leg in the near future. The patient is to return in 2 weeks for reevaluation. Total time: 25 minutes
== END 2024-04-08 23:59 | disposition home or self-care (01) ==
LOC: WC 10:45
PROVIDERS: PCP Family Medicine Geriatric Medicine; Referring Provider Family Medicine Geriatric Medicine; Visit Provider Surgery
DX: L97.922 Non-pressure chronic ulcer of unspecified part of left lower leg with fat layer exposed (principal); L97.912 Non-pressure chronic ulcer of unspecified part of right lower leg with fat layer exposed; Z90.710 Acquired absence of both cervix and uterus; R60.0 Localized edema; Z79.890 Hormone replacement therapy; M51.370 Other intervertebral disc degeneration, lumbosacral region with discogenic back pain only; Z98.1 Arthrodesis status; G62.9 Polyneuropathy, unspecified; H26.9 Unspecified cataract; R51.9 Headache, unspecified; Z87.891 Personal history of nicotine dependence; E03.9 Hypothyroidism, unspecified; Z87.19 Personal history of other diseases of the digestive system; S81.802D Unspecified open wound, left lower leg, subsequent encounter; S81.801D Unspecified open wound, right lower leg, subsequent encounter
CPT/HCPCS: 11042; 99213; G0463

== ENCOUNTER 2024-05-06 15:00 | Outpatient (RCR) | payer MEDICARE, OTHER, SELFPAY ==
[2024-04-09 00:52] VITALS: BP 126/68; PULSE 86; RESP 16; TEMP 36.6; BMI 19.7
[2024-04-15 14:42] VITALS: BP 156/69; PULSE 59; RESP 14; TEMP 36.3; BMI 19.7
--- NOTE | 2024-04-20 16:56 | HP.PCM_ITS ---
History of Present Illness Date of Service: 04/15/24 Chief Complaint: Bilateral lower extremity traumatic wounds History of Wound: This is a 74-year-old female who presented with traumatic wounds to both lower extremities. The wounds are located on the pretibial surfaces bilaterally. The wound on the right pretibial surface occurred approximately 1 month prior to presentation, resulting when the patient bumped her leg against a trash bin. The wound has failed to heal appropriately. More recently, approximately 10 days prior to presentation, the patient dropped a box of spaghetti noodles onto the left pretibial surface, resulting in a wound which has failed to heal. The patient was seen by her primary care physician, Dr. Lundberg, 4 days prior to presentation, where a course of Keflex and doxycycline were initiated. The patient has completed her course of antibiotics. 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 The patient is mobile and active. She denies swelling in her legs. She sleeps on a flat surface at night. She denies a history of thrombophlebitis. The patient denies a history of congestive heart failure, myocardial infarction, diabetes mellitus, cerebrovascular accident, hypertension, renal disease, and pulmonary disease. She has a history of hypothyroidism. A limited venous duplex examination is noted to have been performed on October 26, 2022, examining only the right lower extremity, and revealing no evidence of thrombophlebitis. Valvular competence was not fully evaluated. [facility] Medical History Traumatic open wound of right lower leg Traumatic open wound of left lower leg Non-pressure chronic ulcer of left lower leg with fat layer exposed Non-pressure chronic ulcer of right lower leg with fat layer exposed Traumatic open wound of right lower leg with delayed healing Traumatic open wound of left lower leg with delayed healing Wears glasses Anxiety Alcohol use History of steroid therapy Easy bruising Back pain Injury of back Migraine headache Syncope History of IBS Former smoker Leg cramps History of edema History of stress test Cataracts, bilateral Arthritis Anemia Vitamin D deficiency, unspecified Hypothyroidism Home Medications ?Medication ?Instructions ?Recorded ?Last Taken ?Type lidocaine 5 % topical patch 2 patch topical DAILY 05/03/17 1 Day Ago History ~09/21/17 meloxicam 15 mg tablet 15 mg PO QDAY 05/03/17 09/22/17 History doxepin 10 mg capsule 10 mg PO QHS 12/16/19 Unknown History folic acid 400 mcg tablet 0.4 mg PO DAILY@0800 12/16/19 Unknown History linaclotide 145 mcg capsule 145 mcg PO DAILY 12/16/19 Unknown History loratadine 10 mg tablet 10 mg PO DAILY 12/16/19 Unknown History estradiol 0.1 mg/24 hr semiweekly 2 patch transdermal MOTH 03/15/20 Unknown History transdermal patch (Bessie) acetaminophen 500 mg tablet 1,000 mg PO BID 01/06/22 Unknown History vitamin D80-[id number] B1 100 mg-1 1 ml IM .QMO 01/06/22 Unknown History mg/mL intramuscular solution gabapentin 100 mg capsule 300 mg PO BID 07/19/23 Unknown History cephalexin 500 mg capsule 500 mg PO BID 03/18/24 Unknown History doxycycline hyclate 100 mg tablet 100 mg PO BID 03/18/24 Unknown History levothyroxine 50 mcg tablet 50 mcg PO DAILY 03/18/24 Unknown History Allergy/AdvReac Type Severity Reaction Status Date / Time No Known Allergies Allergy Verified 07/19/23 14:03 Family History Mother Rheumatoid arthritis Father Pancreatic cancer Cancer Grandfather Myocardial infarction Grandmother Thyroid disorder Surgical History Status post spinal disc removal History of tonsillectomy History of lumbar spinal fusion History of total hip replacement History of hysterectomy History of cervical discectomy Social History household members: spouse Smoking Status: Never smoker alcohol intake: current alcohol intake frequency: a few times a week Alcohol type: wine substance use type: does not use what type of physical activity do you participate in: other details: physical therapy frequency: 1-2 times per week Vital Signs Vital Signs Vital Signs: Weight Weight: 101 lb Body Mass Index (BMI) 19.7 Physical Exam Const alert, oriented x3, no apparent distress, average body habitus and no limitations Constitutional Narrative: The patient's BMI is 19.7. She is thin body habitus. General Appearance: cooperative, comfortable, well kempt and well developed Orientation / Consciousness: awake, oriented to person, oriented to place and oriented to time Exam Limitations: no limitations HEENT normocephalic, head/scalp atraumatic and hearing grossly normal bilaterally Head and Scalp: normal to inspection, normocephalic and atraumatic Face and Sinus: normal facial exam Nose: external nose normal External Ear: external ears normal Eyes EOMs intact bilaterally General Eye: normal appearance of both eyes Neck full ROM Resp normal respiratory effort, normal air movement, no retractions and no use of accessory muscles Effort and Inspection: able to speak in complete sentences Extremity no calf tenderness General Extremity: Negative for clubbing or cyanosis Skin Wound Narrative: The patient's lower extremities appear warm and well-perfused. Pedal pulses are easily palpable bilaterally. There is no significant swelling or edema in the patient's lower extremities. The wound on the right pretibial surface is now completely healed and epithelialized. A wound remains on the left pretibial surface. The wound is full-thickness in nature. There is a moderate amount of bioburden and nonviable tissue. Dimensions are documented elsewhere. There is no sign of infection or cellulitis. Wound margins are well beveled. Only slight progress has been noted in the status of the wound on the left pretibial surface. Hair: normal Neuro oriented x3, CN's II-XII intact bilaterally, moves all extremities, no focal motor deficits and no sensory deficits noted Sensorium / Orientation: awake, alert, oriented to person, oriented to place and oriented to time Psych Appearance: grossly normal and appropriate Attitude: calm Activity / Motor Behavior: appropriate eye contact Speech: normal speech Mood & Affect: euthymic mood Thought Process: normal thought process Thought Content: normal thought content Attention / Concentration: attention grossly intact Debridement Note Debridement Note Wound debrided: Left pretibial wound Laterality: Left Type of Debridement: Excisional debridement Anesthesia Used: 5% Lidocaine Gel and Cetacaine Depth: Down to and including healthy tissue and in the subcutaneous layer Percentage of wound debrided: 100 Instrument Used: 5mm curette Tissue Removed: Bioburden and nonviable tissue Severity: Fat Layer Exposed Amount of bleeding with debridement: Mild Bleeding Controlled with: Compression and gauze Patient tolerated procedure: Patient tolerated procedure well Post-Debridement Measurements and Additional Note: Post-Debridement Measurements/Treatment JOE - Nurse 1 - General Ulcer Assessment Start: 04/15/24 14:42 Freq: Status: Active Protocol: RICARDOSelina Activity Type Activity Date Activity User E-sign Co-sign Detail Recorded Client Recorded Date Recorded By Document 04/15/24 14:42 ML [id number] 04/15/24 14:56 ML 04/15/24 14:42 - Today's Visit Information Type of service Follow-up Visit (Physician/DEVELOPMENT SPEC ) Arrival Mode Ambulatory Transfer Assistance None Patient Identification Verified (Name & Yes ) Patient Requires Transmission-Based No Precautions Height and Weight Body Mass Index (BMI) 19.7 BMI Classification Normal Vital Signs Temperature (97.8 F-99.1 F) 97.3 F L Temperature Source Temporal Pulse Rate (60-100) 59 L Pulse Location Monitor Respiratory Rate (12-18) 14 Respiratory rate source Observation Blood Pressure (90/60-120/80) 156/69 H Blood Pressure Mean 98 Source Monitor Position Sitting Blood Pressure Location Right Arm History Since Last Visit- (Skip if this is Patient's initial visit) Have you changed medications since your No last visit? Any new allergies or adverse reactions No Had a fall/change in ADL's that may No increase risk of falls Signs or symptoms of abuse and/or No neglect since last visit Have you been in the hospital since your No last visit? Has dressing in place as prescribed Yes Has compression in place as prescribed N/A Has offloadiing in place as prescribed N/A Experienced any changes in pain level or No management Pain Scale: 0-10 Numeric Is Patient Pain Free? Yes - Nurse 1 - General Ulcer Measurement Start: 04/15/24 14:42 Freq: Status: Active Protocol: Activity Type Activity Date Activity User E-sign Co-sign Detail Recorded Client Recorded Date Recorded By Document 04/15/24 14:42 ML [id number] 04/15/24 14:56 ML 04/15/24 14:42 Wound Center Nurse 1 2. LLE ant -Current Size (cm) - Length 3 -Current Size (cm) - Width 3 -Current Size (cm) - Depth 0.1 -Total Square Cm 9 -Exudate Amt Small -Exudate Type Serosanguineous -Granulation Amt Medium (34-66%) -Slough/Fibrin Yes -Necrotic Tissue Type Adherent Slough -Texture (Joyce-wound Skin Appearance) Assessed -Moisture (Joyce-wound Skin Appearance) Assessed -Color (Joyce-wound Skin Appearance) Assessed -Temperature (Joyce-wound Skin No Abnormality Appearance) (Pt Warm) -Ulcer Cleansing Soap and Water -Anesthetic Used 5% Lidocaine Gel 1. RLE ant -Current Size (cm) - Length 0.1 -Current Size (cm) - Width 0.1 -Current Size (cm) - Depth 0.1 -Total Square Cm 0.01 -Exudate Amt None Present -Granulation Amt None Present (0 %) -Slough/Fibrin No -Tenderness on Palpation (Joyce-wound No Skin Appearance) -Ulcer Cleansing Soap and Water -Anesthetic Used 5% Lidocaine Gel Right Calf (cm) 26 Right Ankle (cm) 16.5 Left Calf (cm) 26.5 Left Ankle (cm) 17.5 WC - Nurse 2 - General Ulcer CM Notes Start: 04/15/24 14:42 Freq: Status: Active Protocol: Activity Type Activity Date Activity User E-sign Co-sign Detail Recorded Client Recorded Date Recorded By Document 04/15/24 15:50 DS [id number] 04/15/24 15:54 DS 04/15/24 15:50 Wound Center Nurse 2 2. LLE ant -Time 15:50 -Correct Patient Yes -Correct Side, Site, Position Yes -Correct Procedure Yes -Procedure Performed Yes -Type of Procedure Debridement -Clinical Debridement Subcutaneous -Tissue Removed Subcutaneous -Post Debridement (cm) - Length 2.1 -Post Debridement (cm) - Width 2.1 -Post Debridement (cm) - Depth 0.1 -Total Square (Post) (cm) 4.41 -Area of Debridement (cm) - Length 2.1 -Area of Debridement (cm) - Width 2.1 -Total Square (Area) (cm) 4.41 -Tunneling No -Undermining/Tunneling No -Circular Undermining No -Wound/Ulcer Outcome Not Healed -Ulcer Cleansing Rinsed/ Irrigated with Saline -Foul Odor after Cleansing No -Bioengineered Tissue No -Bleeding Controlled with Pressure -Treatment Response Procedure Tolerated Well -Debridement - Subq, 1st 20sq cm Yes 1. RLE ant -Time 15:51 -Correct Patient Yes -Procedure Performed No -Wound/Ulcer Outcome Healed- Epithelialized Pain Scale: 0-10 Numeric Is Patient Pain Free? Yes WC - Nurse 3 - General Ulcer D/C NN Start: 04/15/24 14:42 Freq: Status: Active Protocol: Activity Type Activity Date Activity User E-sign Co-sign Detail Recorded Client Recorded Date Recorded By Document 04/15/24 15:58 KW [id number] 04/15/24 15:59 KW 04/15/24 15:58 Wound Care Center Nurse 3 2. LLE ant -Primary Dressing Applied Mepilex Border -Mepilex Border 1 Pain Scale: 0-10 Numeric Is Patient Pain Free? Yes WC - Visit Discharge Discharge Condition Stable Ambulatory Status Ambulatory Transportation Private Auto Medication Reconcilliation completed & No provided to patient/care provider Clinical Summary of Care Provided Yes Additional Wound Tissue Removed: Bioburden and nonviable tissue Charges/Coding Procedures Integumentary [id number]: [id number] [place] subq tissue 20 sq cm/< Assessment/Plan Assessment/Plan (1) Non-pressure chronic ulcer of left lower leg with fat layer exposed: CODE(S): L97.922 - Non-pressure chronic ulcer of unspecified part of left lower leg with fat layer exposed (2) Traumatic open wound of left lower leg: CODE(S): S81.802A - Unspecified open wound, left lower leg, initial encounter QUALIFIERS: Encounter type: subsequent encounter Qualified Code(s): S81.802D - Unspecified open wound, left lower leg, subsequent encounter (3) Non-pressure chronic ulcer of right lower leg with fat layer exposed: CODE(S): L97.912 - Non-pressure chronic ulcer of unspecified part of right lower leg with fat layer exposed (4) Traumatic open wound of right lower leg: CODE(S): S81.801A - Unspecified open wound, right lower leg, initial encounter QUALIFIERS: Encounter type: subsequent encounter Qualified Code(s): S81.801D - Unspecified open wound, right lower leg, subsequent encounter (5) Lumbar scoliosis: CODE(S): M41.9 - Scoliosis, unspecified QUALIFIERS: Scoliosis type: other secondary scoliosis Qualified Code(s): M41.56 - Other secondary scoliosis, lumbar region (6) Low back pain: CODE(S): M54.50 - Low back pain, unspecified (7) DDD (degenerative disc disease), lumbosacral: CODE(S): M51.37 - Other intervertebral disc degeneration, lumbosacral region (8) Hypothyroidism (acquired): CODE(S): E03.9 - Hypothyroidism, unspecified (9) Cataracts, bilateral: CODE(S): H26.9 - Unspecified cataract (10) History of tonsillectomy: CODE(S): Z90.89 - Acquired absence of other organs (11) History of IBS: CODE(S): Z87.19 - Personal history of other diseases of the digestive system (12) Former smoker: CODE(S): Z87.891 - Personal history of nicotine dependence (13) History of lumbar spinal fusion: CODE(S): Z98.1 - Arthrodesis status (14) History of hysterectomy: CODE(S): Z90.710 - Acquired absence of both cervix and uterus (15) History of cervical discectomy: CODE(S): Z98.890 - Other specified postprocedural states (16) History of total hip replacement: CODE(S): Z96.649 - Presence of unspecified artificial hip joint (17) Status post spinal disc removal: CODE(S): Z98.890 - Other specified postprocedural states PLAN: Plan This is a 74-year-old female who presented with traumatic wounds in both lower extremities. Although the patient does not relate significant swelling in her lower extremities, measures to prevent such swelling have been thoroughly discussed. The patient has been encouraged to elevate her lower extremities as much as possible. She has been advised to refrain from prolonged, idle sitting. Activity has been encouraged. The patient has been encouraged to optimize her nutritional intake. Her appetite is said to be recently depressed due to the recent loss of her . She has been provided samples of Frank, and encouraged to use a nutritional supplement on a daily basis until which time her appetite returns to normal. We are to continue the use of collagenase Santyl topically to the wound on the left pretibial surface, which has failed to show significant improvement, and demonstrates persisting bioburden and nonviable tissue in moderate amount. A prescription has been provided for the collagenase Santyl, and instructions given as to the appropriate means of application on a daily basis. In addition, because the left pretibial ulceration has failed to progress, and the patient relates pain at this site, a swab culture was recently obtained for aerobic and anaerobic bacterial growth. Culture results were negative, and no additional measures are to be undertaken at this time. The patient is to return in 1 week for reassessment. Total time: 25 minutes
[2024-04-22 15:34] VITALS: BP 174/67; PULSE 65; RESP 16; TEMP 36.3; BMI 19.7
--- NOTE | 2024-04-23 11:36 | PCM.WC.HP ---
History of Present Illness Date of Service: 04/22/24 Chief Complaint: Bilateral lower extremity traumatic wounds History of Wound: This is a 74-year-old female who presented with traumatic wounds to both lower extremities. The wounds are located on the pretibial surfaces bilaterally. The wound on the right pretibial surface occurred approximately 1 month prior to presentation, resulting when the patient bumped her leg against a trash bin. The wound has failed to heal appropriately. More recently, approximately 10 days prior to presentation, the patient dropped a box of spaghetti noodles onto the left pretibial surface, resulting in a wound which has failed to heal. The patient was seen by her primary care physician, Dr. Lundberg, 4 days prior to presentation, where a course of Keflex and doxycycline were initiated. The patient has completed her course of antibiotics. 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 The patient is mobile and active. She denies swelling in her legs. She sleeps on a flat surface at night. She denies a history of thrombophlebitis. The patient denies a history of congestive heart failure, myocardial infarction, diabetes mellitus, cerebrovascular accident, hypertension, renal disease, and pulmonary disease. She has a history of hypothyroidism. A limited venous duplex examination is noted to have been performed on October 26, 2022, examining only the right lower extremity, and revealing no evidence of thrombophlebitis. Valvular competence was not fully evaluated. [facility] Medical History Traumatic open wound of right lower leg Traumatic open wound of left lower leg Non-pressure chronic ulcer of left lower leg with fat layer exposed Non-pressure chronic ulcer of right lower leg with fat layer exposed Traumatic open wound of right lower leg with delayed healing Traumatic open wound of left lower leg with delayed healing Wears glasses Anxiety Alcohol use History of steroid therapy Easy bruising Back pain Injury of back Migraine headache Syncope History of IBS Former smoker Leg cramps History of edema History of stress test Cataracts, bilateral Arthritis Anemia Vitamin D deficiency, unspecified Hypothyroidism Home Medications ?Medication ?Instructions ?Recorded ?Last Taken ?Type lidocaine 5 % topical patch 2 patch topical DAILY 05/03/17 1 Day Ago History ~09/21/17 meloxicam 15 mg tablet 15 mg PO QDAY 05/03/17 09/22/17 History doxepin 10 mg capsule 10 mg PO QHS 12/16/19 Unknown History folic acid 400 mcg tablet 0.4 mg PO DAILY@0800 12/16/19 Unknown History linaclotide 145 mcg capsule 145 mcg PO DAILY 12/16/19 Unknown History loratadine 10 mg tablet 10 mg PO DAILY 12/16/19 Unknown History estradiol 0.1 mg/24 hr semiweekly 2 patch transdermal MOTH 03/15/20 Unknown History transdermal patch (Bessie) acetaminophen 500 mg tablet 1,000 mg PO BID 01/06/22 Unknown History vitamin [id number] B1 100 mg-1 1 ml IM .QMO 01/06/22 Unknown History mg/mL intramuscular solution gabapentin 100 mg capsule 300 mg PO BID 07/19/23 Unknown History cephalexin 500 mg capsule 500 mg PO BID 03/18/24 Unknown History doxycycline hyclate 100 mg tablet 100 mg PO BID 03/18/24 Unknown History levothyroxine 50 mcg tablet 50 mcg PO DAILY 03/18/24 Unknown History Allergy/AdvReac Type Severity Reaction Status Date / Time No Known Allergies Allergy Verified 07/19/23 14:03 Family History Mother Rheumatoid arthritis Father Pancreatic cancer Cancer Grandfather Myocardial infarction Grandmother Thyroid disorder Surgical History Status post spinal disc removal History of tonsillectomy History of lumbar spinal fusion History of total hip replacement History of hysterectomy History of cervical discectomy Social History household members: spouse Smoking Status: Never smoker alcohol intake: current alcohol intake frequency: a few times a week Alcohol type: wine substance use type: does not use what type of physical activity do you participate in: other details: physical therapy frequency: 1-2 times per week Vital Signs Vital Signs Vital Signs: 04/22/24 15:34 Temperature 97.3 F L Temperature Source Temporal Pulse Rate 65 Respiratory Rate 16 Blood Pressure 174/67 H Blood Pressure Mean 102 Blood Pressure Source Monitor Blood Pressure Position Semi-Fowlers Blood Pressure Location Left Arm Oxygen Delivery Method Room Air Weight Weight: 101 lb Body Mass Index (BMI) 19.7 Physical Exam Const alert, oriented x3, no apparent distress, average body habitus and no limitations Constitutional Narrative: The patient's BMI is 19.7. She is thin body habitus. General Appearance: cooperative, comfortable, well kempt and well developed Orientation / Consciousness: awake, oriented to person, oriented to place and oriented to time Exam Limitations: no limitations HEENT normocephalic, head/scalp atraumatic and hearing grossly normal bilaterally Head and Scalp: normal to inspection, normocephalic and atraumatic Face and Sinus: normal facial exam Nose: external nose normal External Ear: external ears normal Eyes EOMs intact bilaterally General Eye: normal appearance of both eyes Neck full ROM Resp normal respiratory effort, normal air movement, no retractions and no use of accessory muscles Effort and Inspection: able to speak in complete sentences Extremity no calf tenderness General Extremity: Negative for clubbing or cyanosis Skin Wound Narrative: The patient's lower extremities appear warm and well-perfused. Pedal pulses are easily palpable bilaterally. There is no significant swelling or edema in the patient's lower extremities. The wound on the right pretibial surface remains completely healed and epithelialized. A wound remains on the left pretibial surface. The wound is full-thickness in nature. There is a small amount of bioburden, which continues to decrease. Dimensions are documented elsewhere. There is no sign of infection or cellulitis. Wound margins are well beveled. Hair: normal Neuro oriented x3, CN's II-XII intact bilaterally, moves all extremities, no focal motor deficits and no sensory deficits noted Sensorium / Orientation: awake, alert, oriented to person, oriented to place and oriented to time Psych Appearance: grossly normal and appropriate Attitude: calm Activity / Motor Behavior: appropriate eye contact Speech: normal speech Mood & Affect: euthymic mood Thought Process: normal thought process Thought Content: normal thought content Attention / Concentration: attention grossly intact Debridement Note Debridement Note Wound debrided: Left pretibial wound Laterality: Left Type of Debridement: Excisional debridement Anesthesia Used: 5% Lidocaine Gel and Cetacaine Depth: Down to and including healthy tissue and in the subcutaneous layer Percentage of wound debrided: 100 Instrument Used: 5mm curette Tissue Removed: Bioburden Severity: Fat Layer Exposed Amount of bleeding with debridement: Mild Bleeding Controlled with: Compression and gauze Patient tolerated procedure: Patient tolerated procedure well Post-Debridement Measurements and Additional Note: Post-Debridement Measurements/Treatment WC - Nurse 1 - General Ulcer Assessment Start: 04/15/24 14:42 Freq: Status: Active Protocol: QUIANA Activity Type Activity Date Activity User E-sign Co-sign Detail Recorded Client Recorded Date Recorded By Document 04/15/24 14:42 ML [id number] 04/15/24 14:56 ML Document 04/22/24 15:34 KW [id number] 04/22/24 15:36 KW 04/15/24 04/22/24 14:42 15:34 WC - Today's Visit Information Type of service Follow-up Visit Follow-up Visit (Physician/OWNER SPA DIRECTOR (Physician/OWNER SPA DIRECTOR ) ) Arrival Mode Ambulatory Ambulatory Transfer Assistance None Patient Identification Verified (Name & Yes Yes ) Patient Requires Transmission-Based No Precautions Height and Weight Body Mass Index (BMI) 19.7 19.7 BMI Classification Normal Normal Vital Signs Temperature (97.8 F-99.1 F) 97.3 F L 97.3 F L Temperature Source Temporal Temporal Pulse Rate (60-100) 59 L 65 Pulse Location Monitor Monitor Respiratory Rate (12-18) 14 16 Respiratory rate source Observation Monitor Oxygen Delivery Method Room Air Blood Pressure (90/60-120/80) 156/69 H 174/67 H Blood Pressure Mean 98 102 Source Monitor Monitor Position Sitting Semi-Fowlers Blood Pressure Location Right Arm Left Arm History Since Last Visit- (Skip if this is Patient's initial visit) Have you changed medications since your No No last visit? Any new allergies or adverse reactions No No Had a fall/change in ADL's that may No No increase risk of falls Signs or symptoms of abuse and/or No No neglect since last visit Have you been in the hospital since your No No last visit? Has dressing in place as prescribed Yes Yes Has compression in place as prescribed N/A N/A Has offloadiing in place as prescribed N/A N/A Experienced any changes in pain level or No No management Left Footwear Regular Shoe Right Footwear Regular Shoe Pain Scale: 0-10 Numeric Is Patient Pain Free? Yes Yes JOE - Nurse 1 - General Ulcer Measurement Start: 04/15/24 14:42 Freq: Status: Active Protocol: Activity Type Activity Date Activity User E-sign Co-sign Detail Recorded Client Recorded Date Recorded By Document 04/15/24 14:42 ML [id number] 04/15/24 14:56 ML Document 04/22/24 15:34 KW [id number] 04/22/24 15:36 KW 04/15/24 04/22/24 14:42 15:34 Wound Center Nurse 1 1. RLE ant -Current Size (cm) - Length 0.1 -Current Size (cm) - Width 0.1 -Current Size (cm) - Depth 0.1 -Total Square Cm 0.01 -Exudate Amt None Present -Granulation Amt None Present (0 %) -Slough/Fibrin No -Tenderness on Palpation (Joyce-wound No Skin Appearance) -Ulcer Cleansing Soap and Water -Anesthetic Used 5% Lidocaine Gel 2. LLE ant -Current Size (cm) - Length 3 2 -Current Size (cm) - Width 3 2 -Current Size (cm) - Depth 0.1 0.1 -Total Square Cm 9 4 -Date of Last Picture (Recall this 04/22/24 field) -Exudate Amt Small Medium -Exudate Type Serosanguineous Serous -Wound Margin Distinct, Outline Attached -Granulation Amt Medium (34-66%) Large (67-100%) -Granulation Quality Red -Slough/Fibrin Yes -Necrotic Tissue Type Adherent Slough -Texture (Joyce-wound Skin Appearance) Assessed Assessed -Moisture (Joyce-wound Skin Appearance) Assessed Assessed -Color (Joyce-wound Skin Appearance) Assessed Assessed -Temperature (Joyce-wound Skin No Abnormality No Abnormality Appearance) (Pt Warm) (Pt Warm) -Tenderness on Palpation (Joyce-wound No Skin Appearance) -Ulcer Cleansing Soap and Water Rinsed/ Irrigated with Saline -Foul Odor after Cleansing No -Anesthetic Used 5% Lidocaine 5% Lidocaine Gel Gel Right Calf (cm) 26 Right Ankle (cm) 16.5 Left Calf (cm) 26.5 Left Ankle (cm) 17.5 WC - Nurse 2 - General Ulcer CM Notes Start: 04/15/24 14:42 Freq: Status: Active Protocol: Activity Type Activity Date Activity User E-sign Co-sign Detail Recorded Client Recorded Date Recorded By Document 04/15/24 15:50 DS [id number] 04/15/24 15:54 DS Document 04/22/24 15:44 DS [id number] 04/22/24 15:48 DS 01/07/25 01/14/25 15:50 15:44 Wound Center Nurse 2 1. RLE ant -Time 15:51 -Correct Patient Yes -Procedure Performed No -Wound/Ulcer Outcome Healed- Epithelialized 2. LLE ant -Time 15:50 15:44 -Correct Patient Yes Yes -Correct Side, Site, Position Yes Yes -Correct Procedure Yes Yes -Procedure Performed Yes Yes -Type of Procedure Debridement Debridement -Clinical Debridement Subcutaneous Subcutaneous -Tissue Removed Subcutaneous Subcutaneous -Post Debridement (cm) - Length 2.1 2.0 -Post Debridement (cm) - Width 2.1 2.0 -Post Debridement (cm) - Depth 0.1 0.1 -Total Square (Post) (cm) 4.41 4.00 -Area of Debridement (cm) - Length 2.1 2.0 -Area of Debridement (cm) - Width 2.1 2.0 -Total Square (Area) (cm) 4.41 4.00 -Tunneling No No -Undermining/Tunneling No No -Circular Undermining No No -Wound/Ulcer Outcome Not Healed Not Healed -Ulcer Cleansing Rinsed/ Rinsed/ Irrigated with Irrigated with Saline Saline -Foul Odor after Cleansing No No -Bioengineered Tissue No No -Bleeding Controlled with Pressure Pressure -Treatment Response Procedure Procedure Tolerated Well Tolerated Well -Debridement - Subq, 1st 20sq cm Yes Yes Pain Scale: 0-10 Numeric Is Patient Pain Free? Yes Yes - Nurse 3 - General Ulcer D/C NN Start: 04/15/24 14:42 Freq: Status: Active Protocol: Activity Type Activity Date Activity User E-sign Co-sign Detail Recorded Client Recorded Date Recorded By Document 04/15/24 15:58 [id number] 04/15/24 15:59 KW Document 04/22/24 16:01 [id number] 04/22/24 16:01 04/15/24 04/22/24 15:58 16:01 Wound Care Center Nurse 3 2. LLE ant -Primary Dressing Applied Mepilex Border -Primary Dressing Applied Silicone Border Foam 4x4 -Other Dressing pt santyl -Mepilex Border 1 -Silicone Border Foam 4x4 1 Pain Scale: 0-10 Numeric Is Patient Pain Free? Yes Yes - Visit Discharge Discharge Condition Stable Stable Ambulatory Status Ambulatory Ambulatory Transportation Private Auto Private Auto Medication Reconcilliation completed & No No provided to patient/care provider Clinical Summary of Care Provided Yes Yes Charges/Coding Procedures Integumentary [id number]: [id number] [place] subq tissue 20 sq cm/< Assessment/Plan Assessment/Plan (1) Non-pressure chronic ulcer of left lower leg with fat layer exposed: CODE(S): L97.922 - Non-pressure chronic ulcer of unspecified part of left lower leg with fat layer exposed (2) Traumatic open wound of left lower leg: CODE(S): S81.802A - Unspecified open wound, left lower leg, initial encounter QUALIFIERS: Encounter type: subsequent encounter Qualified Code(s): S81.802D - Unspecified open wound, left lower leg, subsequent encounter (3) Non-pressure chronic ulcer of right lower leg with fat layer exposed: CODE(S): L97.912 - Non-pressure chronic ulcer of unspecified part of right lower leg with fat layer exposed (4) Traumatic open wound of right lower leg: CODE(S): S81.801A - Unspecified open wound, right lower leg, initial encounter QUALIFIERS: Encounter type: subsequent encounter Qualified Code(s): S81.801D - Unspecified open wound, right lower leg, subsequent encounter (5) Lumbar scoliosis: CODE(S): M41.9 - Scoliosis, unspecified QUALIFIERS: Scoliosis type: other secondary scoliosis Qualified Code(s): M41.56 - Other secondary scoliosis, lumbar region (6) Low back pain: CODE(S): M54.50 - Low back pain, unspecified (7) DDD (degenerative disc disease), lumbosacral: CODE(S): M51.37 - Other intervertebral disc degeneration, lumbosacral region (8) Hypothyroidism (acquired): CODE(S): E03.9 - Hypothyroidism, unspecified (9) Cataracts, bilateral: CODE(S): H26.9 - Unspecified cataract (10) History of tonsillectomy: CODE(S): Z90.89 - Acquired absence of other organs (11) History of IBS: CODE(S): Z87.19 - Personal history of other diseases of the digestive system (12) Former smoker: CODE(S): Z87.891 - Personal history of nicotine dependence (13) History of lumbar spinal fusion: CODE(S): Z98.1 - Arthrodesis status (14) History of hysterectomy: CODE(S): Z90.710 - Acquired absence of both cervix and uterus (15) History of cervical discectomy: CODE(S): Z98.890 - Other specified postprocedural states (16) History of total hip replacement: CODE(S): Z96.649 - Presence of unspecified artificial hip joint (17) Status post spinal disc removal: CODE(S): Z98.890 - Other specified postprocedural states PLAN: Plan This is a 74-year-old female who presented with traumatic wounds in both lower extremities. Although the patient does not relate significant swelling in her lower extremities, measures to prevent such swelling have been thoroughly discussed. The patient has been encouraged to elevate her lower extremities as much as possible. She has been advised to refrain from prolonged, idle sitting. Activity has been encouraged. The patient has been encouraged to optimize her nutritional intake. Her appetite is said to be recently depressed due to the recent loss of her . She has been provided samples of Frank, and encouraged to use a nutritional supplement on a daily basis until which time her appetite returns to normal. We are to continue the use of collagenase Santyl topically to the wound on the left pretibial surface, which has shown signs of slow improvement. A prescription has been provided for the collagenase Santyl, and instructions given as to the appropriate means of application on a daily basis. A swab culture was recently obtained for aerobic and anaerobic bacterial growth. Culture results were negative. We are to seek pre-authorization for the use of a cellular tissue product. If approved, consideration will be given to the use of an EpiFix allograft. The patient is to return in 1 week for reassessment. Total time: 24 minutes
[2024-04-29 15:19] VITALS: BP 142/76; PULSE 67; RESP 16; TEMP 35.9; BMI 19.7
--- NOTE | 2024-04-30 20:15 | PCM.WC.HP ---
History of Present Illness Date of Service: 04/29/24 Chief Complaint: Bilateral lower extremity traumatic wounds History of Wound: This is a 74-year-old female who presented with traumatic wounds to both lower extremities. The wounds were located on the pretibial surfaces bilaterally. The wound on the right pretibial surface occurred approximately 1 month prior to presentation, resulting when the patient bumped her leg against a trash bin. The wound had failed to heal appropriately. More recently, approximately 10 days prior to presentation, the patient dropped a box of spaghetti noodles onto the left pretibial surface, resulting in a wound which had failed to heal. The patient was seen by her primary care physician, Dr. Lundberg, 4 days prior to presentation, where a course of Keflex and doxycycline were initiated. The patient has completed her course of antibiotics. 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 The patient is mobile and active. She denies swelling in her legs. She sleeps on a flat surface at night. She denies a history of thrombophlebitis. The patient denies a history of congestive heart failure, myocardial infarction, diabetes mellitus, cerebrovascular accident, hypertension, renal disease, and pulmonary disease. She has a history of hypothyroidism. A limited venous duplex examination is noted to have been performed on October 26, 2022, examining only the right lower extremity, and revealing no evidence of thrombophlebitis. Valvular competence was not fully evaluated. [facility] Medical History Traumatic open wound of right lower leg Traumatic open wound of left lower leg Non-pressure chronic ulcer of left lower leg with fat layer exposed Non-pressure chronic ulcer of right lower leg with fat layer exposed Traumatic open wound of right lower leg with delayed healing Traumatic open wound of left lower leg with delayed healing Wears glasses Anxiety Alcohol use History of steroid therapy Easy bruising Back pain Injury of back Migraine headache Syncope History of IBS Former smoker Leg cramps History of edema History of stress test Cataracts, bilateral Arthritis Anemia Vitamin D deficiency, unspecified Hypothyroidism Home Medications ?Medication ?Instructions ?Recorded ?Last Taken ?Type lidocaine 5 % topical patch 2 patch topical DAILY 05/03/17 1 Day Ago History ~09/21/17 meloxicam 15 mg tablet 15 mg PO QDAY 05/03/17 09/22/17 History doxepin 10 mg capsule 10 mg PO QHS 12/16/19 Unknown History folic acid 400 mcg tablet 0.4 mg PO DAILY@0800 12/16/19 Unknown History linaclotide 145 mcg capsule 145 mcg PO DAILY 12/16/19 Unknown History loratadine 10 mg tablet 10 mg PO DAILY 12/16/19 Unknown History estradiol 0.1 mg/24 hr semiweekly 2 patch transdermal MOTH 03/15/20 Unknown History transdermal patch (Bessie) acetaminophen 500 mg tablet 1,000 mg PO BID 01/06/22 Unknown History vitamin [id number] B1 100 mg-1 1 ml IM .QMO 01/06/22 Unknown History mg/mL intramuscular solution gabapentin 100 mg capsule 300 mg PO BID 07/19/23 Unknown History cephalexin 500 mg capsule 500 mg PO BID 03/18/24 Unknown History doxycycline hyclate 100 mg tablet 100 mg PO BID 03/18/24 Unknown History levothyroxine 50 mcg tablet 50 mcg PO DAILY 03/18/24 Unknown History Allergy/AdvReac Type Severity Reaction Status Date / Time No Known Allergies Allergy Verified 07/19/23 14:03 Family History Mother Rheumatoid arthritis Father Pancreatic cancer Cancer Grandfather Myocardial infarction Grandmother Thyroid disorder Surgical History Status post spinal disc removal History of tonsillectomy History of lumbar spinal fusion History of total hip replacement History of hysterectomy History of cervical discectomy Social History household members: spouse Smoking Status: Never smoker alcohol intake: current alcohol intake frequency: a few times a week Alcohol type: wine substance use type: does not use what type of physical activity do you participate in: other details: physical therapy frequency: 1-2 times per week Vital Signs Vital Signs Vital Signs: Weight Weight: 101 lb Body Mass Index (BMI) 19.7 Physical Exam Const alert, oriented x3, no apparent distress, average body habitus and no limitations Constitutional Narrative: The patient's BMI is 19.7. She is thin body habitus. General Appearance: cooperative, comfortable, well kempt and well developed Orientation / Consciousness: awake, oriented to person, oriented to place and oriented to time Exam Limitations: no limitations HEENT normocephalic, head/scalp atraumatic and hearing grossly normal bilaterally Head and Scalp: normal to inspection, normocephalic and atraumatic Face and Sinus: normal facial exam Nose: external nose normal External Ear: external ears normal Eyes EOMs intact bilaterally General Eye: normal appearance of both eyes Neck full ROM Resp normal respiratory effort, normal air movement, no retractions and no use of accessory muscles Effort and Inspection: able to speak in complete sentences Extremity no calf tenderness General Extremity: Negative for clubbing or cyanosis Skin Wound Narrative: The patient's lower extremities appear warm and well-perfused. Pedal pulses are easily palpable bilaterally. There is no significant swelling or edema in the patient's lower extremities. The wound on the right pretibial surface remains completely healed and epithelialized. A wound remains on the left pretibial surface. The wound is full-thickness in nature. There is minimal bioburden. Dimensions are documented elsewhere. There is no sign of infection or cellulitis. Wound margins are well beveled. There are increasing areas of healthy, pink granulation tissue. Hair: normal Neuro oriented x3, CN's II-XII intact bilaterally, moves all extremities, no focal motor deficits and no sensory deficits noted Sensorium / Orientation: awake, alert, oriented to person, oriented to place and oriented to time Psych Appearance: grossly normal and appropriate Attitude: calm Activity / Motor Behavior: appropriate eye contact Speech: normal speech Mood & Affect: euthymic mood Thought Process: normal thought process Thought Content: normal thought content Attention / Concentration: attention grossly intact Debridement Note Debridement Note Wound debrided: Left pretibial wound Laterality: Left Type of Debridement: Excisional debridement Anesthesia Used: 5% Lidocaine Gel and Cetacaine Depth: Down to and including healthy tissue and in the subcutaneous layer Percentage of wound debrided: 100 Instrument Used: 5mm curette Tissue Removed: Bioburden Severity: Fat Layer Exposed Amount of bleeding with debridement: Mild Bleeding Controlled with: Compression and gauze Patient tolerated procedure: Patient tolerated procedure well Debridement Free Text: Following a routine excisional debridement, which was well-tolerated, an EpiFix allograft was applied. Based upon the dimensions of the patient's wound, a 2 cm x 2 cm EpiFix allograft was selected. The EpiFix allograft was removed from its sterile packaging. It was then cut and fashioned to the appropriate size and shape. It was then applied topically in the appropriate orientation. 100% of the allograft was utilized. The edges of the allograft were secured at the periphery of the wound using Dermabond. Adaptic Touch was then applied topically, and anchored in place using Steri-Strips. A dry sterile gauze dressing was then applied. The patient tolerated the procedure well. This represents the first such application of an allograft at this site. Post-Debridement Measurements and Additional Note: Post-Debridement Measurements/Treatment - Nurse 1 - General Ulcer Assessment Start: 04/15/24 14:42 Freq: Status: Active Protocol: WC.LOWEXT Activity Type Activity Date Activity User E-sign Co-sign Detail Recorded Client Recorded Date Recorded By Document 04/15/24 14:42 ML [id number] 04/15/24 14:56 ML Document 04/22/24 15:34 KW [id number] 04/22/24 15:36 KW Document 04/29/24 15:19 KW [id number] 04/29/24 15:27 KW 04/15/24 04/22/24 04/29/24 14:42 15:34 15:19 - Today's Visit Information Type of service Follow-up Visit Follow-up Visit Follow-up Visit (Physician/ROTATING EQUIPMENT SPECIALIST (Physician/ROTATING EQUIPMENT SPECIALIST (Physician/ROTATING EQUIPMENT SPECIALIST ) ) ) Arrival Mode Ambulatory Ambulatory Ambulatory Transfer Assistance None Accompanied by daughter Patient Identification Verified (Name & Yes Yes Yes ) Patient Requires Transmission-Based No Precautions Height and Weight Body Mass Index (BMI) 19.7 19.7 19.7 BMI Classification Normal Normal Normal Vital Signs Temperature (97.8 F-99.1 F) 97.3 F L 97.3 F L 96.6 F L Temperature Source Temporal Temporal Temporal Pulse Rate (60-100) 59 L 65 67 Pulse Location Monitor Monitor Monitor Respiratory Rate (12-18) 14 16 16 Respiratory rate source Observation Monitor Observation Oxygen Delivery Method Room Air Room Air Blood Pressure (90/60-120/80) 156/69 H 174/67 H 142/76 H Blood Pressure Mean 98 102 98 Source Monitor Monitor Monitor Position Sitting Semi-Fowlers Sitting Blood Pressure Location Right Arm Left Arm Left Arm History Since Last Visit- (Skip if this is Patient's initial visit) Have you changed medications since your No No No last visit? Any new allergies or adverse reactions No No No Had a fall/change in ADL's that may No No No increase risk of falls Signs or symptoms of abuse and/or No No No neglect since last visit Have you been in the hospital since your No No No last visit? Has dressing in place as prescribed Yes Yes Yes Has compression in place as prescribed N/A N/A Yes Has offloadiing in place as prescribed N/A N/A N/A Experienced any changes in pain level or No No No management Left Footwear Regular Shoe Regular Shoe Right Footwear Regular Shoe Regular Shoe Pain Scale: 0-10 Numeric Is Patient Pain Free? Yes Yes Yes WC - Nurse 1 - General Ulcer Measurement Start: 04/15/24 14:42 Freq: Status: Active Protocol: Activity Type Activity Date Activity User E-sign Co-sign Detail Recorded Client Recorded Date Recorded By Document 04/15/24 14:42 ML [id number] 04/15/24 14:56 ML Document 04/22/24 15:34 KW [id number] 04/22/24 15:36 KW Document 04/29/24 15:19 KW [id number] 04/29/24 15:27 KW 04/15/24 04/22/24 04/29/24 14:42 15:34 15:19 Wound Center Nurse 1 1. RLE ant -Current Size (cm) - Length 0.1 -Current Size (cm) - Width 0.1 -Current Size (cm) - Depth 0.1 -Total Square Cm 0.01 -Exudate Amt None Present -Granulation Amt None Present (0 %) -Slough/Fibrin No -Tenderness on Palpation (Joyce-wound No Skin Appearance) -Ulcer Cleansing Soap and Water -Anesthetic Used 5% Lidocaine Gel 2. LLE ant -Current Size (cm) - Length 3 2 2.2 -Current Size (cm) - Width 3 2 2.4 -Current Size (cm) - Depth 0.1 0.1 0.1 -Total Square Cm 9 4 5.28 -Date of Last Picture (Recall this 04/22/24 04/29/24 field) -Exudate Amt Small Medium Small -Exudate Type Serosanguineous Serous Serosanguineous -Wound Margin Distinct, Distinct, Outline Outline Attached Attached -Granulation Amt Medium (34-66%) Large (67-100%) Large (67-100%) -Granulation Quality [employer] -Slough/Fibrin Yes -Necrotic Tissue Type Adherent Slough -Texture (Joyce-wound Skin Appearance) Assessed Assessed Assessed -Moisture (Joyce-wound Skin Appearance) Assessed Assessed Assessed -Color (Joyce-wound Skin Appearance) Assessed Assessed Assessed -Temperature (Joyce-wound Skin No Abnormality No Abnormality No Abnormality Appearance) (Pt Warm) (Pt Warm) (Pt Warm) -Tenderness on Palpation (Joyce-wound No No Skin Appearance) -Ulcer Cleansing Soap and Water Rinsed/ Rinsed/ Irrigated with Irrigated with Saline Saline -Foul Odor after Cleansing No No -Anesthetic Used 5% Lidocaine 5% Lidocaine 5% Lidocaine Gel Gel Gel Right Calf (cm) 26 Right Ankle (cm) 16.5 Left Calf (cm) 26.5 29.0 Left Ankle (cm) 17.5 18.5 WC - Nurse 2 - General Ulcer CM Notes Start: 04/15/24 14:42 Freq: Status: Active Protocol: Activity Type Activity Date Activity User E-sign Co-sign Detail Recorded Client Recorded Date Recorded By Document 04/15/24 15:50 DS [id number] 04/15/24 15:54 DS Document 04/22/24 15:44 DS [id number] 04/22/24 15:48 DS Document 04/29/24 15:35 DS [id number] 04/29/24 15:48 DS 04/15/24 04/22/24 04/29/24 15:50 15:44 15:35 Wound Center Nurse 2 1. RLE ant -Time 15:51 -Correct Patient Yes -Procedure Performed No -Wound/Ulcer Outcome Healed- Epithelialized 2. LLE ant -Time 15:50 15:44 15:35 -Correct Patient Yes Yes Yes -Correct Side, Site, Position Yes Yes Yes -Correct Procedure Yes Yes Yes -Procedure Performed Yes Yes Yes -Type of Procedure Debridement Debridement Debridement -Clinical Debridement Subcutaneous Subcutaneous Subcutaneous -Tissue Removed Subcutaneous Subcutaneous Subcutaneous -Post Debridement (cm) - Length 2.1 2.0 2.0 -Post Debridement (cm) - Width 2.1 2.0 2.0 -Post Debridement (cm) - Depth 0.1 0.1 0.1 -Total Square (Post) (cm) 4.41 4.00 4.00 -Area of Debridement (cm) - Length 2.1 2.0 2.0 -Area of Debridement (cm) - Width 2.1 2.0 2.0 -Total Square (Area) (cm) 4.41 4.00 4.00 -Tunneling No No No -Undermining/Tunneling No No No -Circular Undermining No No No -Wound/Ulcer Outcome Not Healed Not Healed Not Healed -Ulcer Cleansing Rinsed/ Rinsed/ Rinsed/ Irrigated with Irrigated with Irrigated with Saline Saline Saline -Foul Odor after Cleansing No No No -Bioengineered Tissue No No -Expiration Date 11/07/28 -Product Lot Number [id number] -Percent Used 100 -Lot number of Saline Used [id number] -Bleeding Controlled with Pressure Pressure Pressure -Treatment Response Procedure Procedure Procedure Tolerated Well Tolerated Well Tolerated Well -Debridement - Subq, 1st 20sq cm Yes Yes No -Apply Skin Sub - 1st 25 sq cm - Legs 1 -Epifix (per sq cm) 4 Pain Scale: 0-10 Numeric Is Patient Pain Free? Yes Yes Yes - Nurse 3 - General Ulcer D/C NN Start: 04/15/24 14:42 Freq: Status: Active Protocol: Activity Type Activity Date Activity User E-sign Co-sign Detail Recorded Client Recorded Date Recorded By Document 04/15/24 15:58 [id number] 04/15/24 15:59 KW Document 04/22/24 16:01 [id number] 04/22/24 16:01 KW 04/15/24 04/22/24 15:58 16:01 Wound Care Center Nurse 3 2. LLE ant -Primary Dressing Applied Mepilex Border -Primary Dressing Applied Silicone Border Foam 4x4 -Other Dressing pt santyl -Mepilex Border 1 -Silicone Border Foam 4x4 1 Pain Scale: 0-10 Numeric Is Patient Pain Free? Yes Yes - Visit Discharge Discharge Condition Stable Stable Ambulatory Status Ambulatory Ambulatory Transportation Private Auto Private Auto Medication Reconcilliation completed & No No provided to patient/care provider Clinical Summary of Care Provided Yes Yes Charges/Coding Procedures Integumentary [id number]: [id number] Skin sub graft trnk/arm/leg Assessment/Plan Assessment/Plan (1) Non-pressure chronic ulcer of left lower leg with fat layer exposed: CODE(S): L97.922 - Non-pressure chronic ulcer of unspecified part of left lower leg with fat layer exposed (2) Traumatic open wound of left lower leg: CODE(S): S81.802A - Unspecified open wound, left lower leg, initial encounter QUALIFIERS: Encounter type: subsequent encounter Qualified Code(s): S81.802D - Unspecified open wound, left lower leg, subsequent encounter (3) Non-pressure chronic ulcer of right lower leg with fat layer exposed: CODE(S): L97.912 - Non-pressure chronic ulcer of unspecified part of right lower leg with fat layer exposed (4) Traumatic open wound of right lower leg: CODE(S): S81.801A - Unspecified open wound, right lower leg, initial encounter QUALIFIERS: Encounter type: subsequent encounter Qualified Code(s): S81.801D - Unspecified open wound, right lower leg, subsequent encounter (5) Lumbar scoliosis: CODE(S): M41.9 - Scoliosis, unspecified QUALIFIERS: Scoliosis type: other secondary scoliosis Qualified Code(s): M41.56 - Other secondary scoliosis, lumbar region (6) Low back pain: CODE(S): M54.50 - Low back pain, unspecified (7) DDD (degenerative disc disease), lumbosacral: CODE(S): M51.37 - Other intervertebral disc degeneration, lumbosacral region (8) Hypothyroidism (acquired): CODE(S): E03.9 - Hypothyroidism, unspecified (9) Cataracts, bilateral: CODE(S): H26.9 - Unspecified cataract (10) History of tonsillectomy: CODE(S): Z90.89 - Acquired absence of other organs (11) History of IBS: CODE(S): Z87.19 - Personal history of other diseases of the digestive system (12) Former smoker: CODE(S): Z87.891 - Personal history of nicotine dependence (13) History of lumbar spinal fusion: CODE(S): Z98.1 - Arthrodesis status (14) History of hysterectomy: CODE(S): Z90.710 - Acquired absence of both cervix and uterus (15) History of cervical discectomy: CODE(S): Z98.890 - Other specified postprocedural states (16) History of total hip replacement: CODE(S): Z96.649 - Presence of unspecified artificial hip joint (17) Status post spinal disc removal: CODE(S): Z98.890 - Other specified postprocedural states PLAN: Plan This is a 74-year-old female who presented with traumatic wounds in both lower extremities. Although the patient does not relate significant swelling in her lower extremities, measures to prevent such swelling have been thoroughly discussed. The patient has been encouraged to elevate her lower extremities as much as possible. She has been advised to refrain from prolonged, idle sitting. Activity has been encouraged. The patient has been encouraged to optimize her nutritional intake. Her appetite is said to be recently depressed due to the recent loss of her . She has been provided samples of Frank, and encouraged to use a nutritional supplement on a daily basis until which time her appetite returns to normal. An EpiFix allograft was applied topically to the patient's wound in the left lower extremity. This represents the first such application of an allograft at this site. The dressing is to be left undisturbed and intact at this site until the patient's return visit in 1 week. Additional allograft applications are anticipated in the future, as indicated. Total time: 28 minutes
--- NOTE | 2024-05-01 09:49 | WC ---
PHOTO 04/29/24 LT WEEKS
[2024-05-06 15:13] VITALS: BP 160/56; PULSE 60; RESP 16; TEMP 36.3; BMI 19.7
--- NOTE | 2024-05-07 09:07 | WC ---
PHOTO 05/06/24 LEFT WEEKS
--- NOTE | 2024-05-07 17:46 | PCM.WC.HP ---
History of Present Illness Date of Service: 05/06/24 Chief Complaint: Bilateral lower extremity traumatic wounds History of Wound: This is a 74-year-old female who presented with traumatic wounds to both lower extremities. The wounds were located on the pretibial surfaces bilaterally. The wound on the right pretibial surface occurred approximately 1 month prior to presentation, resulting when the patient bumped her leg against a trash bin. The wound had failed to heal appropriately. More recently, approximately 10 days prior to presentation, the patient dropped a box of spaghetti noodles onto the left pretibial surface, resulting in a wound which had failed to heal. The patient was seen by her primary care physician, Dr. Lundberg, 4 days prior to presentation, where a course of Keflex and doxycycline were initiated. The patient has completed her course of antibiotics. 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 The patient is mobile and active. She denies swelling in her legs. She sleeps on a flat surface at night. She denies a history of thrombophlebitis. The patient denies a history of congestive heart failure, myocardial infarction, diabetes mellitus, cerebrovascular accident, hypertension, renal disease, and pulmonary disease. She has a history of hypothyroidism. A limited venous duplex examination is noted to have been performed on October 26, 2022, examining only the right lower extremity, and revealing no evidence of thrombophlebitis. Valvular competence was not fully evaluated. [facility] Medical History Traumatic open wound of right lower leg Traumatic open wound of left lower leg Non-pressure chronic ulcer of left lower leg with fat layer exposed Non-pressure chronic ulcer of right lower leg with fat layer exposed Traumatic open wound of right lower leg with delayed healing Traumatic open wound of left lower leg with delayed healing Wears glasses Anxiety Alcohol use History of steroid therapy Easy bruising Back pain Injury of back Migraine headache Syncope History of IBS Former smoker Leg cramps History of edema History of stress test Cataracts, bilateral Arthritis Anemia Vitamin D deficiency, unspecified Hypothyroidism Home Medications ?Medication ?Instructions ?Recorded ?Last Taken ?Type lidocaine 5 % topical patch 2 patch topical DAILY 05/03/17 1 Day Ago History ~09/21/17 meloxicam 15 mg tablet 15 mg PO QDAY 05/03/17 09/22/17 History doxepin 10 mg capsule 10 mg PO QHS 12/16/19 Unknown History folic acid 400 mcg tablet 0.4 mg PO DAILY@0800 12/16/19 Unknown History linaclotide 145 mcg capsule 145 mcg PO DAILY 12/16/19 Unknown History estradiol 0.1 mg/24 hr semiweekly 2 patch transdermal MOTH 03/15/20 Unknown History transdermal patch (Bessie) acetaminophen 500 mg tablet 1,000 mg PO BID 01/06/22 Unknown History vitamin A38-yayrthm B1 100 mg-1 1 ml IM .QMO 01/06/22 Unknown History mg/mL intramuscular solution levothyroxine 50 mcg tablet 50 mcg PO DAILY 03/18/24 Unknown History gabapentin 100 mg capsule 100 mg PO BID 05/07/24 Unknown History loratadine 10 mg tablet 10 mg PO .prn 05/07/24 Unknown History Allergy/AdvReac Type Severity Reaction Status Date / Time No Known Allergies Allergy Verified 05/07/24 11:09 Family History Mother Rheumatoid arthritis Father Pancreatic cancer Cancer Grandfather Myocardial infarction Grandmother Thyroid disorder Surgical History Status post spinal disc removal History of tonsillectomy History of lumbar spinal fusion History of total hip replacement History of hysterectomy History of cervical discectomy Social History household members: spouse Smoking Status: Never smoker alcohol intake: current alcohol intake frequency: a few times a week Alcohol type: wine substance use type: does not use what type of physical activity do you participate in: other details: physical therapy frequency: 1-2 times per week Vital Signs Vital Signs Vital Signs: Weight Weight: 101 lb Body Mass Index (BMI) 19.7 Physical Exam Const alert, oriented x3, no apparent distress, average body habitus and no limitations Constitutional Narrative: The patient's BMI is 19.7. She is of thin body habitus. General Appearance: cooperative, comfortable, well kempt and well developed Orientation / Consciousness: awake, oriented to person, oriented to place and oriented to time Exam Limitations: no limitations HEENT normocephalic, head/scalp atraumatic and hearing grossly normal bilaterally Head and Scalp: normal to inspection, normocephalic and atraumatic Face and Sinus: normal facial exam Nose: external nose normal External Ear: external ears normal Eyes EOMs intact bilaterally General Eye: normal appearance of both eyes Neck full ROM Resp normal respiratory effort, normal air movement, no retractions and no use of accessory muscles Effort and Inspection: able to speak in complete sentences Extremity no calf tenderness General Extremity: Negative for clubbing or cyanosis Skin Wound Narrative: The patient's lower extremities appear warm and well-perfused. Pedal pulses are easily palpable bilaterally. There is no significant swelling or edema in the patient's lower extremities. The wound on the right pretibial surface remains completely healed and epithelialized. A wound remains on the left pretibial surface. The wound is full-thickness in nature. There is minimal bioburden and a small amount of residual allograft from a previous placement 1 week ago. Dimensions are documented elsewhere. There is no sign of infection or cellulitis. Wound margins are well beveled. There are increasing areas of healthy, pink granulation tissue. Hair: normal Neuro oriented x3, CN's II-XII intact bilaterally, moves all extremities, no focal motor deficits and no sensory deficits noted Sensorium / Orientation: awake, alert, oriented to person, oriented to place and oriented to time Speech: speech normal Psych Appearance: grossly normal and appropriate Attitude: calm Activity / Motor Behavior: appropriate eye contact Speech: normal speech Mood & Affect: euthymic mood Thought Process: normal thought process Thought Content: normal thought content Attention / Concentration: attention grossly intact Debridement Note Debridement Note Wound debrided: Left pretibial wound Laterality: Left Type of Debridement: Excisional debridement Anesthesia Used: 5% Lidocaine Gel and Cetacaine Depth: Down to and including healthy tissue and in the subcutaneous layer Percentage of wound debrided: 100 Instrument Used: 5mm curette Tissue Removed: Bioburden and residual allograft from previous placement Severity: Fat Layer Exposed Amount of bleeding with debridement: Mild Bleeding Controlled with: Compression and gauze Patient tolerated procedure: Patient tolerated procedure well Debridement Free Text: Following a routine excisional debridement, which was well-tolerated, an EpiFix allograft was applied. Based upon the dimensions of the patient's wound, a 2 cm x 2 cm EpiFix allograft was selected. The EpiFix allograft was removed from its sterile packaging. It was then cut and fashioned to the appropriate size and shape. It was then applied topically in the appropriate orientation. 100% of the allograft was utilized. Adaptic Touch was then applied topically, and anchored in place using Steri-Strips. A dry sterile gauze dressing was then applied. The patient tolerated the procedure well. This represents the 2nd such application of an allograft at this site. Post-Debridement Measurements and Additional Note: Post-Debridement Measurements/Treatment - Nurse 1 - General Ulcer Assessment Start: 04/15/24 14:42 Freq: Status: Active Protocol: QUIANA Activity Type Activity Date Activity User E-sign Co-sign Detail Recorded Client Recorded Date Recorded By Document 04/15/24 14:42 ML [id number] 04/15/24 14:56 ML Document 04/22/24 15:34 KW [id number] 04/22/24 15:36 KW Document 04/29/24 15:19 KW [id number] 04/29/24 15:27 KW Document 05/06/24 15:13 KW [id number] 05/06/24 15:16 KW 04/15/24 04/22/24 04/29/24 14:42 15:34 15:19 - Today's Visit Information Type of service Follow-up Visit Follow-up Visit Follow-up Visit (Physician/CHIEF OF HOSPITAL MEDICINE (Physician/CHIEF OF HOSPITAL MEDICINE (Physician/CHIEF OF HOSPITAL MEDICINE ) ) ) Arrival Mode Ambulatory Ambulatory Ambulatory Transfer Assistance None Accompanied by daughter Patient Identification Verified (Name & Yes Yes Yes ) Patient Requires Transmission-Based No Precautions Height and Weight Body Mass Index (BMI) 19.7 19.7 19.7 BMI Classification Normal Normal Normal Vital Signs Temperature (97.8 F-99.1 F) 97.3 F L 97.3 F L 96.6 F L Temperature Source Temporal Temporal Temporal Pulse Rate (60-100) 59 L 65 67 Pulse Location Monitor Monitor Monitor Respiratory Rate (12-18) 14 16 16 Respiratory rate source Observation Monitor Observation Oxygen Delivery Method Room Air Room Air Blood Pressure (90/60-120/80) 156/69 H 174/67 H 142/76 H Blood Pressure Mean 98 102 98 Source Monitor Monitor Monitor Position Sitting Semi-Fowlers Sitting Blood Pressure Location Right Arm Left Arm Left Arm History Since Last Visit- (Skip if this is Patient's initial visit) Have you changed medications since your No No No last visit? Any new allergies or adverse reactions No No No Had a fall/change in ADL's that may No No No increase risk of falls Signs or symptoms of abuse and/or No No No neglect since last visit Have you been in the hospital since your No No No last visit? Has dressing in place as prescribed Yes Yes Yes Has compression in place as prescribed N/A N/A Yes Has offloadiing in place as prescribed N/A N/A N/A Experienced any changes in pain level or No No No management Left Footwear Regular Shoe Regular Shoe Right Footwear Regular Shoe Regular Shoe Pain Scale: 0-10 Numeric Is Patient Pain Free? Yes Yes Yes 05/06/24 15:13 WC - Today's Visit Information Type of service Follow-up Visit (Physician/CHIEF OF HOSPITAL MEDICINE ) Arrival Mode Ambulatory Transfer Assistance Accompanied by daughter Patient Identification Verified (Name & Yes ) Patient Requires Transmission-Based Precautions Height and Weight Body Mass Index (BMI) 19.7 BMI Classification Normal Vital Signs Temperature (97.8 F-99.1 F) 97.3 F L Temperature Source Temporal Pulse Rate (60-100) 60 Pulse Location Monitor Respiratory Rate (12-18) 16 Respiratory rate source Observation Oxygen Delivery Method Room Air Blood Pressure (90/60-120/80) 160/56 H Blood Pressure Mean 90 Source Monitor Position Semi-Fowlers Blood Pressure Location Left Arm History Since Last Visit- (Skip if this is Patient's initial visit) Have you changed medications since your No last visit? Any new allergies or adverse reactions No Had a fall/change in ADL's that may No increase risk of falls Signs or symptoms of abuse and/or No neglect since last visit Have you been in the hospital since your No last visit? Has dressing in place as prescribed Yes Has compression in place as prescribed N/A Has offloadiing in place as prescribed N/A Experienced any changes in pain level or No management Left Footwear Regular Shoe Right Footwear Regular Shoe Pain Scale: 0-10 Numeric Is Patient Pain Free? Yes - Nurse 1 - General Ulcer Measurement Start: 04/15/24 14:42 Freq: Status: Active Protocol: Activity Type Activity Date Activity User E-sign Co-sign Detail Recorded Client Recorded Date Recorded By Document 04/15/24 14:42 ML [id number] 04/15/24 14:56 ML Document 04/22/24 15:34 KW [id number] 04/22/24 15:36 KW Document 04/29/24 15:19 KW [id number] 04/29/24 15:27 KW Document 05/06/24 15:13 KW [id number] 05/06/24 15:16 KW 04/15/24 04/22/24 04/29/24 14:42 15:34 15:19 Wound Center Nurse 1 1. RLE ant -Current Size (cm) - Length 0.1 -Current Size (cm) - Width 0.1 -Current Size (cm) - Depth 0.1 -Total Square Cm 0.01 -Exudate Amt None Present -Granulation Amt None Present (0 %) -Slough/Fibrin No -Tenderness on Palpation (Joyce-wound No Skin Appearance) -Ulcer Cleansing Soap and Water -Anesthetic Used 5% Lidocaine Gel 2. LLE ant -Current Size (cm) - Length 3 2 2.2 -Current Size (cm) - Width 3 2 2.4 -Current Size (cm) - Depth 0.1 0.1 0.1 -Total Square Cm 9 4 5.28 -Date of Last Picture (Recall this 04/22/24 04/29/24 field) -Exudate Amt Small Medium Small -Exudate Type Serosanguineous Serous Serosanguineous -Wound Margin Distinct, Distinct, Outline Outline Attached Attached -Granulation Amt Medium (34-66%) Large (67-100%) Large (67-100%) -Granulation Quality Red [place] -Slough/Fibrin Yes -Necrosis Amt -Necrotic Tissue Type Adherent Slough -Texture (Joyce-wound Skin Appearance) Assessed Assessed Assessed -Moisture (Joyce-wound Skin Appearance) Assessed Assessed Assessed -Color (Joyce-wound Skin Appearance) Assessed Assessed Assessed -Temperature (Joyce-wound Skin No Abnormality No Abnormality No Abnormality Appearance) (Pt Warm) (Pt Warm) (Pt Warm) -Tenderness on Palpation (Joyce-wound No No Skin Appearance) -Ulcer Cleansing Soap and Water Rinsed/ Rinsed/ Irrigated with Irrigated with Saline Saline -Foul Odor after Cleansing No No -Anesthetic Used 5% Lidocaine 5% Lidocaine 5% Lidocaine Gel Gel Gel Right Calf (cm) 26 Right Ankle (cm) 16.5 Left Calf (cm) 26.5 29.0 Left Ankle (cm) 17.5 18.5 05/06/24 15:13 Wound Center Nurse 1 1. RLE ant -Current Size (cm) - Length -Current Size (cm) - Width -Current Size (cm) - Depth -Total Square Cm -Exudate Amt -Granulation Amt -Slough/Fibrin -Tenderness on Palpation (Joyce-wound Skin Appearance) -Ulcer Cleansing -Anesthetic Used 2. LLE ant -Current Size (cm) - Length 2.1 -Current Size (cm) - Width 2.1 -Current Size (cm) - Depth 0.1 -Total Square Cm 4.41 -Date of Last Picture (Recall this field) -Exudate Amt Small -Exudate Type Serosanguineous -Wound Margin Distinct, Outline Attached -Granulation Amt Medium (34-66%) -Granulation Quality [place] -Slough/Fibrin -Necrosis Amt Medium (34-66%) -Necrotic Tissue Type Adherent Slough -Texture (Joyce-wound Skin Appearance) Assessed -Moisture (Joyce-wound Skin Appearance) Assessed, Maceration -Color (Joyce-wound Skin Appearance) Assessed -Temperature (Joyce-wound Skin No Abnormality Appearance) (Pt Warm) -Tenderness on Palpation (Joyce-wound No Skin Appearance) -Ulcer Cleansing Soap and Water -Foul Odor after Cleansing -Anesthetic Used 4% Lidocaine Solution Right Calf (cm) Right Ankle (cm) Left Calf (cm) Left Ankle (cm) WC - Nurse 2 - General Ulcer CM Notes Start: 04/15/24 14:42 Freq: Status: Active Protocol: Activity Type Activity Date Activity User E-sign Co-sign Detail Recorded Client Recorded Date Recorded By Document 04/15/24 15:50 DS [id number] 04/15/24 15:54 DS Document 04/22/24 15:44 DS [id number] 04/22/24 15:48 DS Document 04/29/24 15:35 DS [id number] 04/29/24 15:48 DS Document 05/06/24 15:28 JF [id number] 05/06/24 15:33 JF 04/15/24 04/22/24 04/29/24 15:50 15:44 15:35 Wound Center Nurse 2 1. RLE ant -Time 15:51 -Correct Patient Yes -Procedure Performed No -Wound/Ulcer Outcome Healed- Epithelialized 2. LLE ant -Time 15:50 15:44 15:35 -Correct Patient Yes Yes Yes -Correct Side, Site, Position Yes Yes Yes -Correct Procedure Yes Yes Yes -Procedure Performed Yes Yes Yes -Type of Procedure Debridement Debridement Debridement -Clinical Debridement Subcutaneous Subcutaneous Subcutaneous -Tissue Removed Subcutaneous Subcutaneous Subcutaneous -Post Debridement (cm) - Length 2.1 2.0 2.0 -Post Debridement (cm) - Width 2.1 2.0 2.0 -Post Debridement (cm) - Depth 0.1 0.1 0.1 -Total Square (Post) (cm) 4.41 4.00 4.00 -Area of Debridement (cm) - Length 2.1 2.0 2.0 -Area of Debridement (cm) - Width 2.1 2.0 2.0 -Total Square (Area) (cm) 4.41 4.00 4.00 -Tunneling No No No -Undermining/Tunneling No No No -Circular Undermining No No No -Wound/Ulcer Outcome Not Healed Not Healed Not Healed -Ulcer Cleansing Rinsed/ Rinsed/ Rinsed/ Irrigated with Irrigated with Irrigated with Saline Saline Saline -Foul Odor after Cleansing No No No -Bioengineered Tissue No No -Type of Bioengineered Tissue -Expiration Date 11/07/28 -Product Lot Number [id number] -Percent Used 100 -Lot number of Saline Used [id number] -Bleeding Controlled with Pressure Pressure Pressure -Treatment Response Procedure Procedure Procedure Tolerated Well Tolerated Well Tolerated Well -Offloading -Debridement - Subq, 1st 20sq cm Yes Yes No -Apply Skin Sub - 1st 25 sq cm - Legs 1 -Epifix (per sq cm) 4 Pain Scale: 0-10 Numeric Is Patient Pain Free? Yes Yes Yes 05/06/24 15:28 Wound Center Nurse 2 1. RLE ant -Time -Correct Patient -Procedure Performed -Wound/Ulcer Outcome 2. LLE ant -Time 15:29 -Correct Patient Yes -Correct Side, Site, Position Yes -Correct Procedure Yes -Procedure Performed Yes -Type of Procedure Debridement -Clinical Debridement Subcutaneous -Tissue Removed Subcutaneous -Post Debridement (cm) - Length 2.3 -Post Debridement (cm) - Width 2.4 -Post Debridement (cm) - Depth 0.1 -Total Square (Post) (cm) 5.52 -Area of Debridement (cm) - Length 2.3 -Area of Debridement (cm) - Width 2.4 -Total Square (Area) (cm) 5.52 -Tunneling No -Undermining/Tunneling No -Circular Undermining No -Wound/Ulcer Outcome Not Healed -Ulcer Cleansing Rinsed/ Irrigated with Saline -Foul Odor after Cleansing No -Bioengineered Tissue Yes -Type of Bioengineered Tissue Epifix -Expiration Date 12/08/28 -Product Lot Number [id number] -Percent Used 100 -Lot number of Saline Used [id number] -Bleeding Controlled with Pressure -Treatment Response Procedure Tolerated Well -Offloading No -Debridement - Subq, 1st 20sq cm No -Apply Skin Sub - 1st 25 sq cm - Legs 1 -Epifix (per sq cm) 4 Pain Scale: 0-10 Numeric Is Patient Pain Free? Yes - Nurse 3 - General Ulcer D/C NN Start: 04/15/24 14:42 Freq: Status: Active Protocol: Activity Type Activity Date Activity User E-sign Co-sign Detail Recorded Client Recorded Date Recorded By Document 04/15/24 15:58 [id number] 04/15/24 15:59 Document 04/22/24 16:01 [id number] 04/22/24 16:01 Document 05/06/24 15:41 [facility] [id number] 05/06/24 15:41 [facility] 04/15/24 04/22/24 05/06/24 15:58 16:01 15:41 Wound Care Center Nurse 3 2. LLE ant -Primary Dressing Applied Mepilex Border -Primary Dressing Applied Silicone Border Silicone Border Foam 4x4 Foam 6x6 -Other Dressing pt santyl epifix -Mepilex Border 1 -Silicone Border Foam 4x4 1 -Silicone Border Foam 6x6 1 Treatment Response Procedure Tolerated Well Pain Scale: 0-10 Numeric Is Patient Pain Free? Yes Yes Yes - Visit Discharge Discharge Condition Stable Stable Stable Ambulatory Status Ambulatory Ambulatory Ambulatory Transportation Private Auto Private Auto Private Auto Medication Reconcilliation completed & No No provided to patient/care provider Clinical Summary of Care Provided Yes Yes Charges/Coding Procedures Integumentary [id number]: 50021 Skin sub graft trnk/arm/leg Assessment/Plan Assessment/Plan (1) Non-pressure chronic ulcer of left lower leg with fat layer exposed: CODE(S): L97.922 - Non-pressure chronic ulcer of unspecified part of left lower leg with fat layer exposed (2) Traumatic open wound of left lower leg: CODE(S): S81.802A - Unspecified open wound, left lower leg, initial encounter QUALIFIERS: Encounter type: subsequent encounter Qualified Code(s): S81.802D - Unspecified open wound, left lower leg, subsequent encounter (3) Non-pressure chronic ulcer of right lower leg with fat layer exposed: CODE(S): L97.912 - Non-pressure chronic ulcer of unspecified part of right lower leg with fat layer exposed (4) Traumatic open wound of right lower leg: CODE(S): S81.801A - Unspecified open wound, right lower leg, initial encounter QUALIFIERS: Encounter type: subsequent encounter Qualified Code(s): S81.801D - Unspecified open wound, right lower leg, subsequent encounter (5) Lumbar scoliosis: CODE(S): M41.9 - Scoliosis, unspecified QUALIFIERS: Scoliosis type: other secondary scoliosis Qualified Code(s): M41.56 - Other secondary scoliosis, lumbar region (6) Low back pain: CODE(S): M54.50 - Low back pain, unspecified (7) DDD (degenerative disc disease), lumbosacral: CODE(S): M51.37 - Other intervertebral disc degeneration, lumbosacral region (8) Hypothyroidism (acquired): CODE(S): E03.9 - Hypothyroidism, unspecified (9) Cataracts, bilateral: CODE(S): H26.9 - Unspecified cataract (10) History of tonsillectomy: CODE(S): Z90.89 - Acquired absence of other organs (11) History of IBS: CODE(S): Z87.19 - Personal history of other diseases of the digestive system (12) Former smoker: CODE(S): Z87.891 - Personal history of nicotine dependence (13) History of lumbar spinal fusion: CODE(S): Z98.1 - Arthrodesis status (14) History of hysterectomy: CODE(S): Z90.710 - Acquired absence of both cervix and uterus (15) History of cervical discectomy: CODE(S): Z98.890 - Other specified postprocedural states (16) History of total hip replacement: CODE(S): Z96.649 - Presence of unspecified artificial hip joint (17) Status post spinal disc removal: CODE(S): Z98.890 - Other specified postprocedural states PLAN: Plan This is a 74-year-old female who presented with traumatic wounds in both lower extremities. Although the patient does not relate significant swelling in her lower extremities, measures to prevent such swelling have been thoroughly discussed. The patient has been encouraged to elevate her lower extremities as much as possible. She has been advised to refrain from prolonged, idle sitting. Activity has been encouraged. The patient has been encouraged to optimize her nutritional intake. Her appetite is said to be recently depressed due to the recent loss of her . She has been provided samples of Frank, and encouraged to use a nutritional supplement on a daily basis until which time her appetite returns to normal. An EpiFix allograft was applied topically to the patient's wound in the left lower extremity. This represents the 2nd such application of an allograft at this site. The dressing is to be left undisturbed and intact at this site until the patient's return visit in 1 week. Additional allograft applications are anticipated in the future, as indicated. Total time: 26 minutes
== END 2024-05-09 23:59 | disposition home or self-care (01) ==
LOC: WC 15:00
PROVIDERS: PCP Family Medicine Geriatric Medicine; Referring Provider Family Medicine Geriatric Medicine; Visit Provider Surgery
DX: L97.922 Non-pressure chronic ulcer of unspecified part of left lower leg with fat layer exposed (principal); L97.912 Non-pressure chronic ulcer of unspecified part of right lower leg with fat layer exposed; M41.86 Other forms of scoliosis, lumbar region; Z90.710 Acquired absence of both cervix and uterus; Z79.890 Hormone replacement therapy; Z98.1 Arthrodesis status; Z87.891 Personal history of nicotine dependence; H26.9 Unspecified cataract; E03.9 Hypothyroidism, unspecified; M51.370 Other intervertebral disc degeneration, lumbosacral region with discogenic back pain only; S81.802D Unspecified open wound, left lower leg, subsequent encounter; S81.801D Unspecified open wound, right lower leg, subsequent encounter; Z87.19 Personal history of other diseases of the digestive system; Z90.89 Acquired absence of other organs; Z96.649 Presence of unspecified artificial hip joint
CPT/HCPCS: 11042; 15271; Q4186

== ENCOUNTER → 2024-05-30 | Outpatient (CLI) | payer MEDICARE, OTHER, SELFPAY ==
[2024-05-30 12:07] LABS: Absolute Lymphocyte Count 1.04 X10^3/uL (0.83-4.51); Basophil# 0.01 X10^3/uL; Basophil% 0.3 % (0-1); Eosinophil# 0.01 X10^3/uL; Eosinophils% 0.3 % (0-5); Hematocrit 38.2 % (37-47); Hemoglobin 12.7 g/dL (12.0-15.0); Lymphocyte # 1.04 X10^3/ul (0.83-4.51); Lymphocyte % 30.4 % (19-41); Mean Corp Hgb Conc 33.2 g/dL (32-36); Mean Corpuscular Hgb 30.8 pg (27.0-32.0); Mean Corpuscular Volume 92.7 fL (81-99); Mean Platelet Vol. 9.2 fl (6.2-12.0); Monocyte# 0.36 X10^3/uL; Monocyte% 10.5 % (0-10); NRBC Flagged by Analyzer 0 % (0-5); Neutrophil # 1.99 X10^3/uL (2.7-7.7); Neutrophil % 58.2 % (47-70); Platelet Count 310 K/mm3 (150-450); RBC Distribution Width CV 11.9 % (11.6-14.6); RBC Distribution Width SD 40.9 fl (35.1-43.9); Red Blood Count 4.12 M/mm3 (4.2-5.4); White Blood Count 3.4 K/mm3 (4.4-11.0)
[2024-05-30 12:11] LABS: Erythrocyte Sedimentation Rate 5 mm/hr (0-30)
[2024-05-30 13:19] LABS: Anion Gap 8 (5-15); BUN 12 mg/dL (7-18); BUN/Creat Ratio 15.4 RATIO (10-20); CRP < 2.90 mg/L (0.0-3.0); Calcium,Total 8.8 mg/dL (8.5-10.1); Chloride 99 mmol/L (98-107); Creatinine, Serum 0.78 mg/dL (0.55-1.02); EST Glomerular Filtration Rate 77 mL/min (>60); Est Glom Filt Rate - Afr Amer 93 mL/min (>60); Glucose 93 mg/dL (74-106); Potassium 4.1 mmol/L (3.5-5.1); Sodium Level 133 mmol/L (136-145)
== END | disposition home or self-care (01) ==
LOC: LAB 11:24
PROVIDERS: PCP Family Medicine Geriatric Medicine; Referring Provider Family Medicine Geriatric Medicine; Visit Provider Family Medicine Geriatric Medicine
DX: L03.116 Cellulitis of left lower limb (principal)
CPT/HCPCS: 36415; 80048; 85025; 85652; 86140

== ENCOUNTER 2024-06-03 15:00 | Outpatient (RCR) | payer MEDICARE, OTHER, SELFPAY ==
[2024-05-10 01:14] VITALS: BP 160/56; PULSE 60; RESP 16; TEMP 36.3; BMI 19.7
[2024-05-13 14:55] VITALS: BP 151/78; PULSE 75; RESP 16; TEMP 35.9; BMI 19.7
--- NOTE | 2024-05-14 19:47 | PCM.WC.HP ---
History of Present Illness Date of Service: 05/13/24 Chief Complaint: Bilateral lower extremity traumatic wounds History of Wound: This is a 74-year-old female who presented with traumatic wounds to both lower extremities. The wounds were located on the pretibial surfaces bilaterally. The wound on the right pretibial surface occurred approximately 1 month prior to presentation, resulting when the patient bumped her leg against a trash bin. The wound had failed to heal appropriately. More recently, approximately 10 days prior to presentation, the patient dropped a box of spaghetti noodles onto the left pretibial surface, resulting in a wound which had failed to heal. The patient was seen by her primary care physician, Dr. Lundberg, 4 days prior to presentation, where a course of Keflex and doxycycline were initiated. The patient has completed her course of antibiotics. 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 The patient is mobile and active. She denies swelling in her legs. She sleeps on a flat surface at night. She denies a history of thrombophlebitis. The patient denies a history of congestive heart failure, myocardial infarction, diabetes mellitus, cerebrovascular accident, hypertension, renal disease, and pulmonary disease. She has a history of hypothyroidism. A limited venous duplex examination is noted to have been performed on October 26, 2022, examining only the right lower extremity, and revealing no evidence of thrombophlebitis. Valvular competence was not fully evaluated. [facility] Medical History Traumatic open wound of right lower leg Traumatic open wound of left lower leg Non-pressure chronic ulcer of left lower leg with fat layer exposed Non-pressure chronic ulcer of right lower leg with fat layer exposed Traumatic open wound of right lower leg with delayed healing Traumatic open wound of left lower leg with delayed healing Wears glasses Anxiety Alcohol use History of steroid therapy Easy bruising Back pain Injury of back Migraine headache Syncope History of IBS Former smoker Leg cramps History of edema History of stress test Cataracts, bilateral Arthritis Anemia Vitamin D deficiency, unspecified Hypothyroidism Home Medications ?Medication ?Instructions ?Recorded ?Last Taken ?Type lidocaine 5 % topical patch 2 patch topical DAILY 05/03/17 1 Day Ago History ~09/21/17 meloxicam 15 mg tablet 15 mg PO QDAY 05/03/17 09/22/17 History doxepin 10 mg capsule 10 mg PO QHS 12/16/19 Unknown History folic acid 400 mcg tablet 0.4 mg PO DAILY@0800 12/16/19 Unknown History linaclotide 145 mcg capsule 145 mcg PO DAILY 12/16/19 Unknown History estradiol 0.1 mg/24 hr semiweekly 2 patch transdermal MOTH 03/15/20 Unknown History transdermal patch (Bessie) acetaminophen 500 mg tablet 1,000 mg PO BID 01/06/22 Unknown History vitamin [id number] B1 100 mg-1 1 ml IM .QMO 01/06/22 Unknown History mg/mL intramuscular solution levothyroxine 50 mcg tablet 50 mcg PO DAILY 03/18/24 Unknown History gabapentin 100 mg capsule 100 mg PO BID 05/07/24 Unknown History loratadine 10 mg tablet 10 mg PO .prn 05/07/24 Unknown History Allergy/AdvReac Type Severity Reaction Status Date / Time No Known Allergies Allergy Verified 05/07/24 11:09 Family History Mother Rheumatoid arthritis Father Pancreatic cancer Cancer Grandfather Myocardial infarction Grandmother Thyroid disorder Surgical History Status post spinal disc removal History of tonsillectomy History of lumbar spinal fusion History of total hip replacement History of hysterectomy History of cervical discectomy Social History household members: spouse Smoking Status: Never smoker alcohol intake: current alcohol intake frequency: a few times a week Alcohol type: wine substance use type: does not use what type of physical activity do you participate in: other details: physical therapy frequency: 1-2 times per week Vital Signs Vital Signs Vital Signs: Weight Weight: 101 lb Body Mass Index (BMI) 19.7 Physical Exam Const alert, oriented x3, no apparent distress, average body habitus and no limitations Constitutional Narrative: The patient's BMI is 19.7. She is of thin body habitus. General Appearance: cooperative, comfortable, well kempt and well developed Orientation / Consciousness: awake, oriented to person, oriented to place and oriented to time Exam Limitations: no limitations HEENT normocephalic, head/scalp atraumatic and hearing grossly normal bilaterally Head and Scalp: normal to inspection, normocephalic and atraumatic Face and Sinus: normal facial exam Nose: external nose normal External Ear: external ears normal Eyes EOMs intact bilaterally General Eye: normal appearance of both eyes Neck full ROM Resp normal respiratory effort, normal air movement, no retractions and no use of accessory muscles Effort and Inspection: able to speak in complete sentences Extremity no calf tenderness General Extremity: Negative for clubbing or cyanosis Skin Wound Narrative: The patient's lower extremities appear warm and well-perfused. Pedal pulses are easily palpable bilaterally. There is no significant swelling or edema in the patient's lower extremities. The wound on the right pretibial surface remains completely healed and epithelialized. A wound remains on the left pretibial surface. The wound is full-thickness in nature. There is minimal bioburden and a small amount of residual allograft from a previous placement 1 week ago. Dimensions are documented elsewhere. The wound is slightly smaller in size. There is no sign of infection or cellulitis. Wound margins are well beveled. There are increasing areas of healthy, pink granulation tissue. Hair: normal Neuro oriented x3, CN's II-XII intact bilaterally, moves all extremities, no focal motor deficits and no sensory deficits noted Sensorium / Orientation: awake, alert, oriented to person, oriented to place and oriented to time Speech: speech normal Psych Appearance: grossly normal and appropriate Attitude: calm Activity / Motor Behavior: appropriate eye contact Speech: normal speech Mood & Affect: euthymic mood Thought Process: normal thought process Thought Content: normal thought content Attention / Concentration: attention grossly intact Debridement Note Debridement Note Wound debrided: Left pretibial wound Laterality: Left Type of Debridement: Excisional debridement Anesthesia Used: 5% Lidocaine Gel and Cetacaine Depth: Down to and including healthy tissue and in the subcutaneous layer Percentage of wound debrided: 100 Instrument Used: 5mm curette Tissue Removed: Bioburden and residual allograft from previous placement Severity: Fat Layer Exposed Amount of bleeding with debridement: Mild Bleeding Controlled with: Compression and gauze Patient tolerated procedure: Patient tolerated procedure well Debridement Free Text: Following a routine excisional debridement, which was well-tolerated, an EpiFix allograft was applied. Based upon the dimensions of the patient's wound, a 2 cm x 2 cm EpiFix allograft was selected. The EpiFix allograft was removed from its sterile packaging. It was then cut and fashioned to the appropriate size and shape. It was then applied topically in the appropriate orientation. 100% of the allograft was utilized. Adaptic Touch was then applied topically, and anchored in place using Steri-Strips. A dry sterile gauze dressing was then applied. The patient tolerated the procedure well. This represents the 3rd such application of an allograft at this site. Post-Debridement Measurements and Additional Note: Post-Debridement Measurements/Treatment - Nurse 1 - General Ulcer Assessment Start: 05/13/24 14:55 Freq: Status: Active Protocol: QUIANA Activity Type Activity Date Activity User E-sign Co-sign Detail Recorded Client Recorded Date Recorded By Document 05/13/24 14:55 KW [id number] 05/13/24 14:59 KW 05/13/24 14:55 WC - Today's Visit Information Type of service Follow-up Visit (Physician/SPECIALTY THERAPIST ) Arrival Mode Ambulatory Patient Identification Verified (Name & Yes ) Height and Weight Body Mass Index (BMI) 19.7 BMI Classification Normal Vital Signs Temperature (97.8 F-99.1 F) 96.7 F L Temperature Source Temporal Pulse Rate (60-100) 75 Pulse Location Monitor Respiratory Rate (12-18) 16 Respiratory rate source Observation Oxygen Delivery Method Room Air Blood Pressure (90/60-120/80) 151/78 H Blood Pressure Mean 102 Source Monitor Position Semi-Fowlers Blood Pressure Location Left Arm History Since Last Visit- (Skip if this is Patient's initial visit) Have you changed medications since your No last visit? Any new allergies or adverse reactions No Had a fall/change in ADL's that may No increase risk of falls Signs or symptoms of abuse and/or No neglect since last visit Have you been in the hospital since your No last visit? Has dressing in place as prescribed Yes Has compression in place as prescribed Yes Has offloadiing in place as prescribed N/A Experienced any changes in pain level or No management Left Footwear Regular Shoe Right Footwear Regular Shoe Pain Scale: 0-10 Numeric Is Patient Pain Free? Yes - Nurse 1 - General Ulcer Measurement Start: 05/13/24 14:55 Freq: Status: Active Protocol: Activity Type Activity Date Activity User E-sign Co-sign Detail Recorded Client Recorded Date Recorded By Document 05/13/24 14:55 KW [id number] 05/13/24 14:59 KW 05/13/24 14:55 Wound Center Nurse 1 2. LLE ant -Current Size (cm) - Length 2 -Current Size (cm) - Width 2.2 -Current Size (cm) - Depth 0.1 -Total Square Cm 4.4 -Exudate Amt Medium -Exudate Type Serosanguineous -Wound Margin Distinct, Outline Attached -Granulation Amt Large (67-100%) -Granulation Quality [place] -Necrosis Amt Small (1-33%) -Necrotic Tissue Type Adherent Slough -Texture (Joyce-wound Skin Appearance) Assessed -Moisture (Joyce-wound Skin Appearance) Assessed, Maceration -Color (Joyce-wound Skin Appearance) Assessed -Temperature (Joyce-wound Skin No Abnormality Appearance) (Pt Warm) -Tenderness on Palpation (Joyce-wound No Skin Appearance) -Ulcer Cleansing Soap and Water -Anesthetic Used 5% Lidocaine Gel WC - Nurse 2 - General Ulcer CM Notes Start: 05/13/24 14:55 Freq: Status: Active Protocol: Activity Type Activity Date Activity User E-sign Co-sign Detail Recorded Client Recorded Date Recorded By Document 05/13/24 15:18 DS [id number] 05/13/24 15:28 DS 05/13/24 15:18 Wound Center Nurse 2 -Time 15:19 -Correct Patient Yes -Correct Side, Site, Position Yes -Correct Procedure Yes -Procedure Performed Yes -Type of Procedure Debridement -Clinical Debridement Subcutaneous -Tissue Removed Subcutaneous -Post Debridement (cm) - Length 2.2 -Post Debridement (cm) - Width 2.0 -Post Debridement (cm) - Depth 0.1 -Total Square (Post) (cm) 4.40 -Area of Debridement (cm) - Length 2.2 -Area of Debridement (cm) - Width 2.0 -Total Square (Area) (cm) 4.40 -Tunneling No -Undermining/Tunneling No -Circular Undermining No -Wound/Ulcer Outcome Not Healed -Ulcer Cleansing Rinsed/ Irrigated with Saline -Foul Odor after Cleansing No -Bioengineered Tissue Yes -Type of Bioengineered Tissue Epifix -Expiration Date 01/07/29 -Product Lot Number [id number] -Percent Used 100 -Lot number of Saline Used [id number] -Bleeding Controlled with Pressure -Treatment Response Procedure Tolerated Well -Debridement - Subq, 1st 20sq cm No -Apply Skin Sub - 1st 25 sq cm - Legs 1 -Epifix (per sq cm) 4 Pain Scale: 0-10 Numeric Is Patient Pain Free? Yes WC - Nurse 3 - General Ulcer D/C NN Start: 05/13/24 14:55 Freq: Status: Active Protocol: Activity Type Activity Date Activity User E-sign Co-sign Detail Recorded Client Recorded Date Recorded By Document 05/13/24 15:35 DS [id number] 05/13/24 15:35 DS 05/13/24 15:35 Wound Care Center Nurse 3 2. LLE ant -Ulcer Cleansing Wound Cleanser -Primary Dressing Applied Silicone Border Foam 6x6 -Silicone Border Foam 6x6 1 Pain Scale: 0-10 Numeric Is Patient Pain Free? Yes WC - Visit Discharge Discharge Condition Stable Ambulatory Status Ambulatory Transportation Private Auto Charges/Coding Procedures Integumentary [id number]: [id number] Skin sub graft trnk/arm/leg Assessment/Plan Assessment/Plan (1) Non-pressure chronic ulcer of left lower leg with fat layer exposed: CODE(S): L97.922 - Non-pressure chronic ulcer of unspecified part of left lower leg with fat layer exposed (2) Traumatic open wound of left lower leg: CODE(S): S81.802A - Unspecified open wound, left lower leg, initial encounter QUALIFIERS: Encounter type: subsequent encounter Qualified Code(s): S81.802D - Unspecified open wound, left lower leg, subsequent encounter (3) Non-pressure chronic ulcer of right lower leg with fat layer exposed: CODE(S): L97.912 - Non-pressure chronic ulcer of unspecified part of right lower leg with fat layer exposed (4) Traumatic open wound of right lower leg: CODE(S): S81.801A - Unspecified open wound, right lower leg, initial encounter QUALIFIERS: Encounter type: subsequent encounter Qualified Code(s): S81.801D - Unspecified open wound, right lower leg, subsequent encounter (5) Lumbar scoliosis: CODE(S): M41.9 - Scoliosis, unspecified QUALIFIERS: Scoliosis type: other secondary scoliosis Qualified Code(s): M41.56 - Other secondary scoliosis, lumbar region (6) Low back pain: CODE(S): M54.50 - Low back pain, unspecified (7) DDD (degenerative disc disease), lumbosacral: CODE(S): M51.37 - Other intervertebral disc degeneration, lumbosacral region (8) Hypothyroidism (acquired): CODE(S): E03.9 - Hypothyroidism, unspecified (9) Cataracts, bilateral: CODE(S): H26.9 - Unspecified cataract (10) History of tonsillectomy: CODE(S): Z90.89 - Acquired absence of other organs (11) History of IBS: CODE(S): Z87.19 - Personal history of other diseases of the digestive system (12) Former smoker: CODE(S): Z87.891 - Personal history of nicotine dependence (13) History of lumbar spinal fusion: CODE(S): Z98.1 - Arthrodesis status (14) History of hysterectomy: CODE(S): Z90.710 - Acquired absence of both cervix and uterus (15) History of cervical discectomy: CODE(S): Z98.890 - Other specified postprocedural states (16) History of total hip replacement: CODE(S): Z96.649 - Presence of unspecified artificial hip joint (17) Status post spinal disc removal: CODE(S): Z98.890 - Other specified postprocedural states PLAN: Plan This is a 74-year-old female who presented with traumatic wounds in both lower extremities. Although the patient does not relate significant swelling in her lower extremities, measures to prevent such swelling have been thoroughly discussed. The patient has been encouraged to elevate her lower extremities as much as possible. She has been advised to refrain from prolonged, idle sitting. Activity has been encouraged. The patient has been encouraged to optimize her nutritional intake. Her appetite is said to be recently depressed due to the recent loss of her . She has been provided samples of Frank, and encouraged to use a nutritional supplement on a daily basis until which time her appetite returns to normal. An EpiFix allograft was applied topically to the patient's wound in the left lower extremity. This represents the 3rd such application of an allograft at this site. The dressing is to be left undisturbed and intact at this site until the patient's return visit in 1 week. Additional allograft applications are anticipated in the future, as indicated. Total time: 24 minutes
[2024-05-20 14:56] VITALS: BP 168/59; RESP 14; TEMP 35.7; BMI 19.7
--- NOTE | 2024-05-21 16:37 | PCM.WC.HP ---
History of Present Illness Date of Service: 05/20/24 Chief Complaint: Bilateral lower extremity traumatic wounds History of Wound: This is a 74-year-old female who presented with traumatic wounds to both lower extremities. The wounds were located on the pretibial surfaces bilaterally. The wound on the right pretibial surface occurred approximately 1 month prior to presentation, resulting when the patient bumped her leg against a trash bin. The wound had failed to heal appropriately. More recently, approximately 10 days prior to presentation, the patient dropped a box of spaghetti noodles onto the left pretibial surface, resulting in a wound which had failed to heal. The patient was seen by her primary care physician, Dr. Lundberg, 4 days prior to presentation, where a course of Keflex and doxycycline were initiated. The patient has completed her course of antibiotics. 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 The patient is mobile and active. She denies swelling in her legs. She sleeps on a flat surface at night. She denies a history of thrombophlebitis. The patient denies a history of congestive heart failure, myocardial infarction, diabetes mellitus, cerebrovascular accident, hypertension, renal disease, and pulmonary disease. She has a history of hypothyroidism. A limited venous duplex examination is noted to have been performed on October 26, 2022, examining only the right lower extremity, and revealing no evidence of thrombophlebitis. Valvular competence was not fully evaluated. [facility] Medical History Traumatic open wound of right lower leg Traumatic open wound of left lower leg Non-pressure chronic ulcer of left lower leg with fat layer exposed Non-pressure chronic ulcer of right lower leg with fat layer exposed Traumatic open wound of right lower leg with delayed healing Traumatic open wound of left lower leg with delayed healing Wears glasses Anxiety Alcohol use History of steroid therapy Easy bruising Back pain Injury of back Migraine headache Syncope History of IBS Former smoker Leg cramps History of edema History of stress test Cataracts, bilateral Arthritis Anemia Vitamin D deficiency, unspecified Hypothyroidism Home Medications ?Medication ?Instructions ?Recorded ?Last Taken ?Type lidocaine 5 % topical patch 2 patch topical DAILY 05/03/17 1 Day Ago History ~09/21/17 meloxicam 15 mg tablet 15 mg PO QDAY 05/03/17 09/22/17 History doxepin 10 mg capsule 10 mg PO QHS 12/16/19 Unknown History folic acid 400 mcg tablet 0.4 mg PO DAILY@0800 12/16/19 Unknown History linaclotide 145 mcg capsule 145 mcg PO DAILY 12/16/19 Unknown History estradiol 0.1 mg/24 hr semiweekly 2 patch transdermal MOTH 03/15/20 Unknown History transdermal patch (Bessie) acetaminophen 500 mg tablet 1,000 mg PO BID 01/06/22 Unknown History vitamin [id number] B1 100 mg-1 1 ml IM .QMO 01/06/22 Unknown History mg/mL intramuscular solution levothyroxine 50 mcg tablet 50 mcg PO DAILY 03/18/24 Unknown History gabapentin 100 mg capsule 100 mg PO BID 05/07/24 Unknown History loratadine 10 mg tablet 10 mg PO .prn 05/07/24 Unknown History Allergy/AdvReac Type Severity Reaction Status Date / Time No Known Allergies Allergy Verified 05/07/24 11:09 Family History Mother Rheumatoid arthritis Father Pancreatic cancer Cancer Grandfather Myocardial infarction Grandmother Thyroid disorder Surgical History Status post spinal disc removal History of tonsillectomy History of lumbar spinal fusion History of total hip replacement History of hysterectomy History of cervical discectomy Social History household members: spouse Smoking Status: Never smoker alcohol intake: current alcohol intake frequency: a few times a week Alcohol type: wine substance use type: does not use what type of physical activity do you participate in: other details: physical therapy frequency: 1-2 times per week Vital Signs Vital Signs Vital Signs: Weight Weight: 101 lb Body Mass Index (BMI) 19.7 Physical Exam Const alert, oriented x3, no apparent distress, average body habitus and no limitations Constitutional Narrative: The patient's BMI is 19.7. She is of thin body habitus. General Appearance: cooperative, comfortable, well kempt and well developed Orientation / Consciousness: awake, oriented to person, oriented to place and oriented to time Exam Limitations: no limitations HEENT normocephalic, head/scalp atraumatic and hearing grossly normal bilaterally Head and Scalp: normal to inspection, normocephalic and atraumatic Face and Sinus: normal facial exam Nose: external nose normal External Ear: external ears normal Eyes EOMs intact bilaterally General Eye: normal appearance of both eyes Neck full ROM Resp normal respiratory effort, normal air movement, no retractions and no use of accessory muscles Effort and Inspection: able to speak in complete sentences Extremity no calf tenderness General Extremity: Negative for clubbing or cyanosis Skin Wound Narrative: The patient's lower extremities appear warm and well-perfused. Pedal pulses are easily palpable bilaterally. There is no significant swelling or edema in the patient's lower extremities. The wound on the right pretibial surface remains completely healed and epithelialized. A wound remains on the left pretibial surface. The wound is full-thickness in nature. There is minimal bioburden. Dimensions are documented elsewhere. The wound has not diminished in size or appearance significantly within the last 2 weeks. There is no obvious sign of infection or cellulitis. Wound margins are well beveled. Hair: normal Neuro oriented x3, CN's II-XII intact bilaterally, moves all extremities, no focal motor deficits and no sensory deficits noted Sensorium / Orientation: awake, alert, oriented to person, oriented to place and oriented to time Speech: speech normal Psych Appearance: grossly normal and appropriate Attitude: calm Activity / Motor Behavior: appropriate eye contact Speech: normal speech Mood & Affect: euthymic mood Thought Process: normal thought process Thought Content: normal thought content Attention / Concentration: attention grossly intact Debridement Note Debridement Note Wound debrided: Left pretibial wound Laterality: Left Type of Debridement: Excisional debridement Anesthesia Used: 5% Lidocaine Gel and Cetacaine Depth: Down to and including healthy tissue and in the subcutaneous layer Percentage of wound debrided: 100 Instrument Used: 5mm curette Tissue Removed: Bioburden Severity: Fat Layer Exposed Amount of bleeding with debridement: Mild Bleeding Controlled with: Compression and gauze Patient tolerated procedure: Patient tolerated procedure well Debridement Free Text: Because of a failure to progress significantly within the last 2 weeks, a swab culture has been obtained of the wound for aerobic and anaerobic bacterial growth. Post-Debridement Measurements and Additional Note: Post-Debridement Measurements/Treatment JOE - Nurse 1 - General Ulcer Assessment Start: 05/13/24 14:55 Freq: Status: Active Protocol: QUIANA Activity Type Activity Date Activity User E-sign Co-sign Detail Recorded Client Recorded Date Recorded By Document 05/13/24 14:55 KW [id number] 05/13/24 14:59 KW Document 05/20/24 14:56 ML [id number] 05/20/24 15:03 ML 05/13/24 05/20/24 14:55 14:56 - Today's Visit Information Type of service Follow-up Visit (Physician/FIELD SUPPORT ENGINEER ) Arrival Mode Ambulatory Patient Identification Verified (Name & Yes ) Height and Weight Body Mass Index (BMI) 19.7 19.7 BMI Classification Normal Normal Vital Signs Temperature (97.8 F-99.1 F) 96.7 F L 96.2 F L Temperature Source Temporal Temporal Pulse Rate (60-100) 75 Pulse Location Monitor Respiratory Rate (12-18) 16 14 Respiratory rate source Observation Observation Oxygen Delivery Method Room Air Blood Pressure (90/60-120/80) 151/78 H 168/59 H Blood Pressure Mean 102 95 Source Monitor Monitor Position Semi-Fowlers Sitting Blood Pressure Location Left Arm Right Arm History Since Last Visit- (Skip if this is Patient's initial visit) Have you changed medications since your No No last visit? Any new allergies or adverse reactions No No Had a fall/change in ADL's that may No No increase risk of falls Signs or symptoms of abuse and/or No No neglect since last visit Have you been in the hospital since your No No last visit? Has dressing in place as prescribed Yes Yes Has compression in place as prescribed Yes N/A Has offloadiing in place as prescribed N/A N/A Experienced any changes in pain level or No No management Left Footwear Regular Shoe Regular Shoe Right Footwear Regular Shoe Regular Shoe Pain Scale: 0-10 Numeric Is Patient Pain Free? Yes Yes - Nurse 1 - General Ulcer Measurement Start: 05/13/24 14:55 Freq: Status: Active Protocol: Activity Type Activity Date Activity User E-sign Co-sign Detail Recorded Client Recorded Date Recorded By Document 05/13/24 14:55 KW [id number] 05/13/24 14:59 KW Document 05/20/24 14:56 ML [id number] 05/20/24 15:03 ML 05/13/24 05/20/24 14:55 14:56 Wound Center Nurse 1 2. LLE ant -Current Size (cm) - Length 2 2 -Current Size (cm) - Width 2.2 2 -Current Size (cm) - Depth 0.1 0.1 -Total Square Cm 4.4 4 -Exudate Amt Medium Medium -Exudate Type Serosanguineous Serosanguineous -Wound Margin Distinct, Distinct, Outline Outline Attached Attached -Granulation Amt Large (67-100%) Medium (34-66%) -Granulation Quality [place] -Slough/Fibrin Yes -Necrosis Amt Small (1-33%) Medium (34-66%) -Necrotic Tissue Type Adherent Slough Adherent Slough -Texture (Joyce-wound Skin Appearance) Assessed Assessed -Moisture (Joyce-wound Skin Appearance) Assessed, Assessed Maceration -Color (Joyce-wound Skin Appearance) Assessed Assessed -Temperature (Joyce-wound Skin No Abnormality No Abnormality Appearance) (Pt Warm) (Pt Warm) -Tenderness on Palpation (Joyce-wound No Yes Skin Appearance) -Ulcer Cleansing Soap and Water Rinsed/ Irrigated with Saline -Foul Odor after Cleansing No -Anesthetic Used 5% Lidocaine 5% Lidocaine Gel Gel WC - Nurse 2 - General Ulcer CM Notes Start: 05/13/24 14:55 Freq: Status: Active Protocol: Activity Type Activity Date Activity User E-sign Co-sign Detail Recorded Client Recorded Date Recorded By Document 05/13/24 15:18 DS [id number] 05/13/24 15:28 DS Document 05/20/24 15:21 DS [id number] 05/20/24 15:25 DS Edit Result 05/20/24 15:21 DS (1) [id number] 05/21/24 10:32 DS (1) 2. LLE ant - Bioengineered Tissue Yes => No - Type of Bioengineered Tissue Epifix => - Debridement - Subq, 1st 20sq cm No => Yes - Apply Skin Sub - 1st 25 sq cm - Legs 1 => - Epifix (per sq cm) 4 => 05/13/24 05/20/24 15:18 15:21 Wound Center Nurse 2 2. LLE ant -Time 15:19 15:21 -Correct Patient Yes Yes -Correct Side, Site, Position Yes Yes -Correct Procedure Yes Yes -Procedure Performed Yes Yes -Type of Procedure Debridement Debridement -Clinical Debridement Subcutaneous Subcutaneous -Tissue Removed Subcutaneous Subcutaneous -Post Debridement (cm) - Length 2.2 2.2 -Post Debridement (cm) - Width 2.0 1.8 -Post Debridement (cm) - Depth 0.1 0.1 -Total Square (Post) (cm) 4.40 3.96 -Area of Debridement (cm) - Length 2.2 2.2 -Area of Debridement (cm) - Width 2.0 1.8 -Total Square (Area) (cm) 4.40 3.96 -Tunneling No No -Undermining/Tunneling No No -Circular Undermining No No -Wound/Ulcer Outcome Not Healed Not Healed -Ulcer Cleansing Rinsed/ Rinsed/ Irrigated with Irrigated with Saline Saline -Foul Odor after Cleansing No No -Bioengineered Tissue Yes No -Type of Bioengineered Tissue Epifix -Expiration Date 01/07/29 -Product Lot Number [id number] -Percent Used 100 -Lot number of Saline Used [id number] -Bleeding Controlled with Pressure Pressure -Treatment Response Procedure Procedure Tolerated Well Tolerated Well -Debridement - Subq, 1st 20sq cm No Yes -Apply Skin Sub - 1st 25 sq cm - Legs 1 -Epifix (per sq cm) 4 Pain Scale: 0-10 Numeric Is Patient Pain Free? Yes Yes - Nurse 3 - General Ulcer D/C NN Start: 05/13/24 14:55 Freq: Status: Active Protocol: Activity Type Activity Date Activity User E-sign Co-sign Detail Recorded Client Recorded Date Recorded By Document 05/13/24 15:35 DS [id number] 05/13/24 15:35 DS Document 05/20/24 15:40 ML [id number] 05/20/24 15:41 ML 05/13/24 05/20/24 15:35 15:40 Wound Care Center Nurse 3 2. LLE ant -Ulcer Cleansing Wound Cleanser Rinsed/ Irrigated with Saline -Primary Dressing Applied Silicone Border Promogran, Foam 6x6 Silicone Border Foam 4x4 -Promogran 2 -Silicone Border Foam 4x4 1 -Silicone Border Foam 6x6 1 Pain Scale: 0-10 Numeric Is Patient Pain Free? Yes Yes - Visit Discharge Discharge Condition Stable Ambulatory Status Ambulatory Transportation Private Auto Charges/Coding Procedures Integumentary [id number]: [id number] [place] subq tissue 20 sq cm/< Assessment/Plan Assessment/Plan (1) Non-pressure chronic ulcer of left lower leg with fat layer exposed: CODE(S): L97.922 - Non-pressure chronic ulcer of unspecified part of left lower leg with fat layer exposed (2) Traumatic open wound of left lower leg: CODE(S): S81.802A - Unspecified open wound, left lower leg, initial encounter QUALIFIERS: Encounter type: subsequent encounter Qualified Code(s): S81.802D - Unspecified open wound, left lower leg, subsequent encounter (3) Non-pressure chronic ulcer of right lower leg with fat layer exposed: CODE(S): L97.912 - Non-pressure chronic ulcer of unspecified part of right lower leg with fat layer exposed (4) Traumatic open wound of right lower leg: CODE(S): S81.801A - Unspecified open wound, right lower leg, initial encounter QUALIFIERS: Encounter type: subsequent encounter Qualified Code(s): S81.801D - Unspecified open wound, right lower leg, subsequent encounter (5) Lumbar scoliosis: CODE(S): M41.9 - Scoliosis, unspecified QUALIFIERS: Scoliosis type: other secondary scoliosis Qualified Code(s): M41.56 - Other secondary scoliosis, lumbar region (6) Low back pain: CODE(S): M54.50 - Low back pain, unspecified (7) DDD (degenerative disc disease), lumbosacral: CODE(S): M51.37 - Other intervertebral disc degeneration, lumbosacral region (8) Hypothyroidism (acquired): CODE(S): E03.9 - Hypothyroidism, unspecified (9) Cataracts, bilateral: CODE(S): H26.9 - Unspecified cataract (10) History of tonsillectomy: CODE(S): Z90.89 - Acquired absence of other organs (11) History of IBS: CODE(S): Z87.19 - Personal history of other diseases of the digestive system (12) Former smoker: CODE(S): Z87.891 - Personal history of nicotine dependence (13) History of lumbar spinal fusion: CODE(S): Z98.1 - Arthrodesis status (14) History of hysterectomy: CODE(S): Z90.710 - Acquired absence of both cervix and uterus (15) History of cervical discectomy: CODE(S): Z98.890 - Other specified postprocedural states (16) History of total hip replacement: CODE(S): Z96.649 - Presence of unspecified artificial hip joint (17) Status post spinal disc removal: CODE(S): Z98.890 - Other specified postprocedural states PLAN: Plan This is a 74-year-old female who presented with traumatic wounds in both lower extremities. Although the patient does not relate significant swelling in her lower extremities, measures to prevent such swelling have been thoroughly discussed. The patient has been encouraged to elevate her lower extremities as much as possible. She has been advised to refrain from prolonged, idle sitting. Activity has been encouraged. The patient has been encouraged to optimize her nutritional intake. Her appetite is said to be recently depressed due to the recent loss of her . She has been provided samples of Frank, and encouraged to use a nutritional supplement on a daily basis until which time her appetite returns to normal. We are to transition to the use of Promogran which will be applied topically to the patient's wound on a daily basis. The patient has been instructed in the appropriate means of application. Because the patient's wound has failed to progress in recent weeks, a swab culture has been obtained for aerobic and anaerobic bacterial growth. Culture results will be awaited. We are also to obtain a noninvasive lower extremity arterial study, to assess arterial perfusion in the lower extremities. We are to interrupt the application of a cellular tissue, the third application of which was applied last week. Review of the patient's most recent labs, obtained in February 2024, revealed the patient's hemogram to be normal, as well as her serum protein and albumin. The patient is to return in 1 week for reevaluation. Total time: 25 minutes
[2024-05-27 15:01] VITALS: BP 156/82; PULSE 78; RESP 18; TEMP 36.1; BMI 19.7
--- NOTE | 2024-05-28 08:07 | NURSING ---
PHOTO 05/27/24 Left Ruano
--- NOTE | 2024-05-30 13:47 | HP.PCM_ITS ---
History of Present Illness Date of Service: 05/27/24 Chief Complaint: Bilateral lower extremity traumatic wounds History of Wound: This is a 74-year-old female who presented with traumatic wounds to both lower extremities. The wounds were located on the pretibial surfaces bilaterally. The wound on the right pretibial surface occurred approximately 1 month prior to presentation, resulting when the patient bumped her leg against a trash bin. The wound had failed to heal appropriately. More recently, approximately 10 days prior to presentation, the patient dropped a box of spaghetti noodles onto the left pretibial surface, resulting in a wound which had failed to heal. The patient was seen by her primary care physician, Dr. Lundberg, 4 days prior to presentation, where a course of Keflex and doxycycline were initiated. The patient has completed her course of antibiotics. 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 The patient is mobile and active. She denies swelling in her legs. She sleeps on a flat surface at night. She denies a history of thrombophlebitis. The patient denies a history of congestive heart failure, myocardial infarction, diabetes mellitus, cerebrovascular accident, hypertension, renal disease, and pulmonary disease. She has a history of hypothyroidism. A limited venous duplex examination is noted to have been performed on October 26, 2022, examining only the right lower extremity, and revealing no evidence of thrombophlebitis. Valvular competence was not fully evaluated. [facility] Medical History Traumatic open wound of right lower leg Traumatic open wound of left lower leg Non-pressure chronic ulcer of left lower leg with fat layer exposed Non-pressure chronic ulcer of right lower leg with fat layer exposed Traumatic open wound of right lower leg with delayed healing Traumatic open wound of left lower leg with delayed healing Wears glasses Anxiety Alcohol use History of steroid therapy Easy bruising Back pain Injury of back Migraine headache Syncope History of IBS Former smoker Leg cramps History of edema History of stress test Cataracts, bilateral Arthritis Anemia Vitamin D deficiency, unspecified Hypothyroidism Home Medications ?Medication ?Instructions ?Recorded ?Last Taken ?Type lidocaine 5 % topical patch 2 patch topical DAILY 04/10 08/24 1 Day Ago History ~09/21/17 meloxicam 15 mg tablet 15 mg PO QDAY 05/03/1709/22 History doxepin 10 mg capsule 10 mg PO QHS 12/16/19 Unknow n History folic acid 400 mcg tablet 0.4 mg PO DAILY@0800 0 Unknown History linaclotide 145 mcg capsule 145 mcg PO DAILY 12/16/19 Unknown History estradiol 0.1 mg/24 hr semiweekly 2 patch transdermal MOTH 03/15/20 Unknown History transdermal patch (Bessie) acetaminophen 500 mg tablet 1,000 mg PO BID 01/06/22 U nknown History vitamin [id number] B1 100 mg-1 1 ml IM .QMO 01/06/22 Unknown History mg/mL intramuscular solution levothyroxine 50 mcg tablet 50 mcg PO DAILY 03/18/24 U nknown History gabapentin 100 mg capsule 100 mg PO BID 05/07/24 Unkno wn History loratadine 10 mg tablet 10 mg PO .prn 05/07/24 Unkno wn History sulfamethoxazole 800 1 tab PO Q12H #14 tabs 05/27 Unknown Rx mg-trimethoprim 160 mg tablet (Bactrim DS) Allergy/AdvReac Type Severity Reaction Status Date / Time No Known Allergies Allergy Verified 05/07/24 11:09 Family History Mother Rheumatoid arthritis Father Pancreatic cancer Cancer Grandfather Myocardial infarction Grandmother Thyroid disorder Surgical History Status post spinal disc removal History of tonsillectomy History of lumbar spinal fusion History of total hip replacement History of hysterectomy History of cervical discectomy Social History household members: spouse Smoking Status: Never smoker alcohol intake: current alcohol intake frequency: a few times a week Alcohol type: wine substance use type: does not use what type of physical activity do you participate in: other details: physical therapy frequency: 1-2 times per week Vital Signs Vital Signs Vital Signs: Weight Weight: 101 lb Body Mass Index (BMI) 19.7 Physical Exam Const alert, oriented x3, no apparent distress, average body habitus and no limitations Constitutional Narrative: The patient's BMI is 19.7. She is of thin body habitus. General Appearance: cooperative, comfortable, well kempt and well developed Orientation / Consciousness: awake, oriented to person, oriented to place and oriented to time Exam Limitations: no limitations HEENT normocephalic, head/scalp atraumatic and hearing grossly normal bilaterally Head and Scalp: normal to inspection, normocephalic and atraumatic Face and Sinus: normal facial exam Nose: external nose normal External Ear: external ears normal Eyes EOMs intact bilaterally General Eye: normal appearance of both eyes Neck full ROM Resp normal respiratory effort, normal air movement, no retractions and no use of accessory muscles Effort and Inspection: able to speak in complete sentences Extremity no calf tenderness General Extremity: Negative for clubbing or cyanosis Skin Wound Narrative: The patient's lower extremities appear warm and well-perfused. Pedal pulses are easily palpable bilaterally. There is no significant swelling or edema in the patient's lower extremities. The wound on the right pretibial surface remains completely healed and epithelialized. A wound remains on the left pretibial surface. The wound is full-thickness in nature. There is minimal bioburden. Dimensions are documented elsewhere. The wound has not diminished in size or appearance significantly within the last several weeks. There is no obvious sign of infection or cellulitis. Wound margins are well beveled. Hair: normal Neuro oriented x3, CN's II-XII intact bilaterally, moves all extremities, no focal motor deficits and no sensory deficits noted Sensorium / Orientation: awake, alert, oriented to person, oriented to place and oriented to time Speech: speech normal Psych Appearance: grossly normal and appropriate Attitude: calm Activity / Motor Behavior: appropriate eye contact Speech: normal speech Mood & Affect: euthymic mood Thought Process: normal thought process Thought Content: normal thought content Attention / Concentration: attention grossly intact Debridement Note Debridement Note Wound debrided: Left pretibial wound Laterality: Left Type of Debridement: Excisional debridement Anesthesia Used: 5% Lidocaine Gel and Cetacaine Depth: Down to and including healthy tissue and in the subcutaneous layer Percentage of wound debrided: 100 Instrument Used: 5mm curette Tissue Removed: Bioburden Severity: Fat Layer Exposed Amount of bleeding with debridement: Mild Bleeding Controlled with: Compression and gauze Patient tolerated procedure: Patient tolerated procedure well Post-Debridement Measurements and Additional Note: Post-Debridement Measurements/Treatment WC - Nurse 1 - General Ulcer Assessment Start: 05/13/24 14:55 Freq: Status: Active Protocol: WC.LOWEXT Activity Type Activity Date Activity User E-sign Co-sign Detail Recorded Client Recorded Date Recorded By Document 05/13/24 14:55 KW [id number] 05/13/24 14:59 KW Document 05/20/24 14:56 ML [id number] 05/20/24 15:03 ML Document 05/27/24 15:01 KW [id number] 05/27/24 15:06 KW 05/13/24 05/20/24 05/27/24 14:55 14:56 15:01 - Today's Visit Information Type of service Follow-up Visit Follow-up Visit (Physician/DONOR SERVICES TEAM LEADER (Physician/DONOR SERVICES TEAM LEADER ) ) Arrival Mode Ambulatory Ambulatory Accompanied by daughter Patient Identification Verified (Name & Yes Yes ) Height and Weight Body Mass Index (BMI) 19.7 19.7 19.7 BMI Classification Normal Normal Normal Vital Signs Temperature (97.8 F-99.1 F) 96.7 F L 96.2 F L 97.0 F L Temperature Source Temporal Temporal Temporal Pulse Rate (60-100) 75 78 Pulse Location Monitor Monitor Respiratory Rate (12-18) 16 14 18 Respiratory rate source Observation Observation Observation Oxygen Delivery Method Room Air Room Air Blood Pressure (90/60-120/80) 151/78 H 168/59 H 156/82 H Blood Pressure Mean 102 95 106 Source Monitor Monitor Monitor Position Semi-Fowlers Sitting Semi-Fowlers Blood Pressure Location Left Arm Right Arm Left Arm History Since Last Visit- (Skip if this is Patient's initial visit) Have you changed medications since your No No No last visit? Any new allergies or adverse reactions No No No Had a fall/change in ADL's that may No No No increase risk of falls Signs or symptoms of abuse and/or No No No neglect since last visit Have you been in the hospital since your No No No last visit? Has dressing in place as prescribed Yes Yes Yes Has compression in place as prescribed Yes N/A Yes Has offloadiing in place as prescribed N/A N/A N/A Experienced any changes in pain level or No No No management Left Footwear Regular Shoe Regular Shoe Regular Shoe Right Footwear Regular Shoe Regular Shoe Regular Shoe Pain Scale: 0-10 Numeric Is Patient Pain Free? Yes Yes Yes - Nurse 1 - General Ulcer Measurement Start: 05/13/24 14:55 Freq: Status: Active Protocol: Activity Type Activity Date Activity User E-sign Co-sign Detail Recorded Client Recorded Date Recorded By Document 05/13/24 14:55 KW [id number] 05/13/24 14:59 KW Document 05/20/24 14:56 ML [id number] 05/20/24 15:03 ML Document 05/27/24 15:01 KW [id number] 05/27/24 15:06 KW 05/13/24 05/20/24 05/27/24 14:55 14:56 15:01 Wound Center Nurse 1 2. LLE ant -Current Size (cm) - Length 2 2 2 -Current Size (cm) - Width 2.2 2 1.5 -Current Size (cm) - Depth 0.1 0.1 0.1 -Total Square Cm 4.4 4 3.0 -Date of Last Picture (Recall this 05/27/24 field) -Epithelialization Small 1-33% -Exudate Amt Medium Medium Medium -Exudate Type Serosanguineous Serosanguineous Serosanguineous -Wound Margin Distinct, Distinct, Distinct, Outline Outline Outline Attached Attached Attached -Granulation Amt Large (67-100%) Medium (34-66%) Large (67-100%) -Granulation Quality [place] -Slough/Fibrin Yes -Necrosis Amt Small (1-33%) Medium (34-66%) -Necrotic Tissue Type Adherent Slough Adherent Slough -Texture (Joyce-wound Skin Appearance) Assessed Assessed Assessed -Moisture (Joyce-wound Skin Appearance) Assessed, Assessed Assessed, Maceration Maceration -Color (Joyce-wound Skin Appearance) Assessed Assessed Assessed -Temperature (Joyce-wound Skin No Abnormality No Abnormality No Abnormality Appearance) (Pt Warm) (Pt Warm) (Pt Warm) -Tenderness on Palpation (Joyce-wound No Yes No Skin Appearance) -Ulcer Cleansing Soap and Water Rinsed/ Rinsed/ Irrigated with Irrigated with Saline Saline -Foul Odor after Cleansing No No -Anesthetic Used 5% Lidocaine 5% Lidocaine 5% Lidocaine Gel Gel Gel WC - Nurse 2 - General Ulcer CM Notes Start: 05/13/24 14:55 Freq: Status: Active Protocol: Activity Type Activity Date Activity User E-sign Co-sign Detail Recorded Client Recorded Date Recorded By Document 05/13/24 15:18 DS [id number] 05/13/24 15:28 DS Document 05/20/24 15:21 DS [id number] 05/20/24 15:25 DS Edit Result 05/20/24 15:21 DS (1) [id number] 05/21/24 10:32 DS Document 05/27/24 15:30 DS [id number] 05/27/24 15:31 DS (1) 2. LLE ant - Bioengineered Tissue Yes => No - Type of Bioengineered Tissue Epifix => - Debridement - Subq, 1st 20sq cm No => Yes - Apply Skin Sub - 1st 25 sq cm - Legs 1 => - Epifix (per sq cm) 4 => 05/13/24 05/20/24 05/27/24 15:18 15:21 15:30 Wound Center Nurse 2 2. LLE ant -Time 15:19 15:21 15:25 -Correct Patient Yes Yes Yes -Correct Side, Site, Position Yes Yes Yes -Correct Procedure Yes Yes Yes -Procedure Performed Yes Yes Yes -Type of Procedure Debridement Debridement Debridement -Clinical Debridement Subcutaneous Subcutaneous Subcutaneous -Tissue Removed Subcutaneous Subcutaneous Subcutaneous -Post Debridement (cm) - Length 2.2 2.2 2.0 -Post Debridement (cm) - Width 2.0 1.8 2.0 -Post Debridement (cm) - Depth 0.1 0.1 0.1 -Total Square (Post) (cm) 4.40 3.96 4.00 -Area of Debridement (cm) - Length 2.2 2.2 2.0 -Area of Debridement (cm) - Width 2.0 1.8 2.0 -Total Square (Area) (cm) 4.40 3.96 4.00 -Tunneling No No No -Undermining/Tunneling No No No -Circular Undermining No No No -Wound/Ulcer Outcome Not Healed Not Healed Not Healed -Ulcer Cleansing Rinsed/ Rinsed/ Rinsed/ Irrigated with Irrigated with Irrigated with Saline Saline Saline -Foul Odor after Cleansing No No No -Bioengineered Tissue Yes No No -Type of Bioengineered Tissue Epifix -Expiration Date 01/07/29 -Product Lot Number [id number] -Percent Used 100 -Lot number of Saline Used [id number] -Bleeding Controlled with Pressure Pressure Pressure -Treatment Response Procedure Procedure Procedure Tolerated Well Tolerated Well Tolerated Well -Debridement - Subq, 1st 20sq cm No Yes Yes -Apply Skin Sub - 1st 25 sq cm - Legs 1 -Epifix (per sq cm) 4 Pain Scale: 0-10 Numeric Is Patient Pain Free? Yes Yes Yes - Nurse 3 - General Ulcer D/C NN Start: 05/13/24 14:55 Freq: Status: Active Protocol: Activity Type Activity Date Activity User E-sign Co-sign Detail Recorded Client Recorded Date Recorded By Document 05/13/24 15:35 DS [id number] 05/13/24 15:35 DS Document 05/20/24 15:40 ML [id number] 05/20/24 15:41 ML Document 05/27/24 15:41 KW [id number] 05/27/24 15:41 KW 05/13/24 05/20/24 05/27/24 15:35 15:40 15:41 Wound Care Center Nurse 3 2. LLE ant -Ulcer Cleansing Wound Cleanser Rinsed/ Irrigated with Saline -Primary Dressing Applied Silicone Border Promogran, Promogran, Foam 6x6 Silicone Border Silicone Border Foam 4x4 Foam 4x4 -Promogran 2 1 -Silicone Border Foam 4x4 1 1 -Silicone Border Foam 6x6 1 Pain Scale: 0-10 Numeric Is Patient Pain Free? Yes Yes Yes - Visit Discharge Discharge Condition Stable Stable Ambulatory Status Ambulatory Ambulatory Transportation Private Auto Private Auto Medication Reconcilliation completed & No provided to patient/care provider Clinical Summary of Care Provided Yes Lab / Micro Data Micro: Microbiology 05/20/24 15:29 Wound - Leg, Left Gram Stain - Final 05/20/24 15:29 Wound - Leg, Left Anaerobic Culture - Final Acinetobacter ursingii Staphylococcus epidermidis Kocuria varians No anaerobic bacteria isolated. Charges/Coding Procedures Integumentary [id number]: [id number] [place] subq tissue 20 sq cm/< Assessment/Plan Assessment/Plan (1) Non-pressure chronic ulcer of left lower leg with fat layer exposed: CODE(S): L97.922 - Non-pressure chronic ulcer of unspecified part of left lower leg with fat layer exposed (2) Traumatic open wound of left lower leg: CODE(S): S81.802A - Unspecified open wound, left lower leg, initial encounter QUALIFIERS: Encounter type: subsequent encounter Qualified Code(s): S81.802D - Unspecified open wound, left lower leg, subsequent encounter (3) Non-pressure chronic ulcer of right lower leg with fat layer exposed: CODE(S): L97.912 - Non-pressure chronic ulcer of unspecified part of right lower leg with fat layer exposed (4) Traumatic open wound of right lower leg: CODE(S): S81.801A - Unspecified open wound, right lower leg, initial encounter QUALIFIERS: Encounter type: subsequent encounter Qualified Code(s): S81.801D - Unspecified open wound, right lower leg, subsequent encounter (5) Lumbar scoliosis: CODE(S): M41.9 - Scoliosis, unspecified QUALIFIERS: Scoliosis type: other secondary scoliosis Qualified Code(s): M41.56 - Other secondary scoliosis, lumbar region (6) Low back pain: CODE(S): M54.50 - Low back pain, unspecified (7) DDD (degenerative disc disease), lumbosacral: CODE(S): M51.37 - Other intervertebral disc degeneration, lumbosacral dalia on (8) Hypothyroidism (acquired): CODE(S): E03.9 - Hypothyroidism, unspecified (9) Cataracts, bilateral: CODE(S): H26.9 - Unspecified cataract (10) History of tonsillectomy: CODE(S): Z90.89 - Acquired absence of other organs (11) History of IBS: CODE(S): Z87.19 - Personal history of other diseases of the digestive system (12) Former smoker: CODE(S): Z87.891 - Personal history of nicotine dependence (13) History of lumbar spinal fusion: CODE(S): Z98.1 - Arthrodesis status (14) History of hysterectomy: CODE(S): Z90.710 - Acquired absence of both cervix and uterus (15) History of cervical discectomy: CODE(S): Z98.890 - Other specified postprocedural states (16) History of total hip replacement: CODE(S): Z96.649 - Presence of unspecified artificial hip joint (17) Status post spinal disc removal: CODE(S): Z98.890 - Other specified postprocedural states PLAN: Plan This is a 74-year-old female who presented with traumatic wounds in both lower extremities. Although the patient does not relate significant swelling in her lower extremities, measures to prevent such swelling have been thoroughly discussed. The patient has been encouraged to elevate her lower extremities as much as possible. She has been advised to refrain from prolonged, idle sitting. Activity has been encouraged. The patient has been encouraged to optimize her nutritional intake. Her appetite is said to be recently depressed due to the recent loss of her . She has been provided samples of Frank, and encouraged to use a nutritional supplement on a daily basis until which time her appetite returns to normal. We are to continue the use of Promogran, which will be applied topically to the patient's wound on a daily basis. The patient has been instructed in the appropriate means of application. Because the patient's wound has failed to progress in recent weeks, a swab culture was obtained for aerobic and anaerobic bacterial growth. Culture results are positive for Acin etobacter ursingii, Staphylococcus epidermidis, and Kocuria varians. In response, the patient has been provided with a prescription for Bactrim double strength to be taken twice daily for a total of 7 days. We are also to obtain a noninvasive lower extremity arterial study, to assess arterial perfusion in the lower extremities. The arterial study is pending. We may resume application of an allograft once the patient's wound infection has cleared. Review of the patient's most recent labs, obtained in February 2024, revealed the patient's hemogram to be normal, as well as her serum protein and albumin. The patient is to return in 1 week for reevaluation. Total time: 24 minutes
[2024-06-03 15:12] VITALS: BP 148/35; PULSE 74; RESP 18; TEMP 36.4; BMI 19.7
--- NOTE | 2024-06-04 08:26 | WC ---
PHOTO 06/03/24 LEFT WEEKS
--- NOTE | 2024-06-05 12:40 | PCM.WC.HP ---
History of Present Illness Date of Service: 06/03/24 Chief Complaint: Bilateral lower extremity traumatic wounds History of Wound: This is a 74-year-old female who presented with traumatic wounds to both lower extremities. The wounds were located on the pretibial surfaces bilaterally. The wound on the right pretibial surface occurred approximately 1 month prior to presentation, resulting when the patient bumped her leg against a trash bin. The wound had failed to heal appropriately. More recently, approximately 10 days prior to presentation, the patient dropped a box of spaghetti noodles onto the left pretibial surface, resulting in a wound which had failed to heal. The patient was seen by her primary care physician, Dr. Lundberg, 4 days prior to presentation, where a course of Keflex and doxycycline were initiated. The patient has completed her course of antibiotics. 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 The patient is mobile and active. She denies swelling in her legs. She sleeps on a flat surface at night. She denies a history of thrombophlebitis. The patient denies a history of congestive heart failure, myocardial infarction, diabetes mellitus, cerebrovascular accident, hypertension, renal disease, and pulmonary disease. She has a history of hypothyroidism. A limited venous duplex examination is noted to have been performed on October 26, 2022, examining only the right lower extremity, and revealing no evidence of thrombophlebitis. Valvular competence was not fully evaluated. [facility] Medical History Traumatic open wound of right lower leg Traumatic open wound of left lower leg Non-pressure chronic ulcer of left lower leg with fat layer exposed Non-pressure chronic ulcer of right lower leg with fat layer exposed Traumatic open wound of right lower leg with delayed healing Traumatic open wound of left lower leg with delayed healing Wears glasses Anxiety Alcohol use History of steroid therapy Easy bruising Back pain Injury of back Migraine headache Syncope History of IBS Former smoker Leg cramps History of edema History of stress test Cataracts, bilateral Arthritis Anemia Vitamin D deficiency, unspecified Hypothyroidism Home Medications ?Medication ?Instructions ?Recorded ?Last Taken ?Type lidocaine 5 % topical patch 2 patch topical DAILY 05/03/17 1 Day Ago History ~09/21/17 meloxicam 15 mg tablet 15 mg PO QDAY 05/03/17 09/22/17 History doxepin 10 mg capsule 10 mg PO QHS 12/16/19 Unknown History folic acid 400 mcg tablet 0.4 mg PO DAILY@0800 12/16/19 Unknown History linaclotide 145 mcg capsule 145 mcg PO DAILY 12/16/19 Unknown History estradiol 0.1 mg/24 hr semiweekly 2 patch transdermal MOTH 03/15/20 Unknown History transdermal patch (Bessie) acetaminophen 500 mg tablet 1,000 mg PO BID 01/06/22 Unknown History vitamin N19-[id number] B1 100 mg-1 1 ml IM .QMO 01/06/22 Unknown History mg/mL intramuscular solution levothyroxine 50 mcg tablet 50 mcg PO DAILY 03/18/24 Unknown History gabapentin 100 mg capsule 100 mg PO BID 05/07/24 Unknown History loratadine 10 mg tablet 10 mg PO .prn 05/07/24 Unknown History sulfamethoxazole 800 1 tab PO Q12H #14 tabs 05/27/24 Unknown Rx mg-trimethoprim 160 mg tablet (Bactrim DS) Allergy/AdvReac Type Severity Reaction Status Date / Time No Known Allergies Allergy Verified 05/07/24 11:09 Family History Mother Rheumatoid arthritis Father Pancreatic cancer Cancer Grandfather Myocardial infarction Grandmother Thyroid disorder Surgical History Status post spinal disc removal History of tonsillectomy History of lumbar spinal fusion History of total hip replacement History of hysterectomy History of cervical discectomy Social History household members: spouse Smoking Status: Never smoker alcohol intake: current alcohol intake frequency: a few times a week Alcohol type: wine substance use type: does not use what type of physical activity do you participate in: other details: physical therapy frequency: 1-2 times per week Vital Signs Vital Signs Vital Signs: Weight Weight: 101 lb Body Mass Index (BMI) 19.7 Physical Exam Const alert, oriented x3, no apparent distress, average body habitus and no limitations Constitutional Narrative: The patient's BMI is 19.7. She is of thin body habitus. General Appearance: cooperative, comfortable, well kempt and well developed Orientation / Consciousness: awake, oriented to person, oriented to place and oriented to time Exam Limitations: no limitations HEENT normocephalic, head/scalp atraumatic and hearing grossly normal bilaterally Head and Scalp: normal to inspection, normocephalic and atraumatic Face and Sinus: normal facial exam Nose: external nose normal External Ear: external ears normal Eyes EOMs intact bilaterally General Eye: normal appearance of both eyes Neck full ROM Resp normal respiratory effort, normal air movement, no retractions and no use of accessory muscles Effort and Inspection: able to speak in complete sentences Extremity no calf tenderness General Extremity: Negative for clubbing or cyanosis Skin Wound Narrative: The patient's lower extremities appear warm and well-perfused. Pedal pulses are easily palpable bilaterally. There is no significant swelling or edema in the patient's lower extremities. The wound on the right pretibial surface remains completely healed and epithelialized. A wound remains on the left pretibial surface. The wound is full-thickness in nature. There is minimal bioburden. Dimensions are documented elsewhere. The wound has not diminished in size or appearance significantly within the last several weeks. There is no obvious sign of infection or cellulitis. Wound margins are well beveled. Hair: normal Neuro oriented x3, CN's II-XII intact bilaterally, moves all extremities, no focal motor deficits and no sensory deficits noted Sensorium / Orientation: awake, alert, oriented to person, oriented to place and oriented to time Speech: speech normal Psych Appearance: grossly normal and appropriate Attitude: calm Activity / Motor Behavior: appropriate eye contact Speech: normal speech Mood & Affect: euthymic mood Thought Process: normal thought process Thought Content: normal thought content Attention / Concentration: attention grossly intact Debridement Note Debridement Note Wound debrided: Left pretibial wound Laterality: Left Type of Debridement: Excisional debridement Anesthesia Used: 5% Lidocaine Gel and Cetacaine Depth: Down to and including healthy tissue and in the subcutaneous layer Percentage of wound debrided: 100 Instrument Used: 5mm curette Tissue Removed: Small amount of bioburden Severity: Fat Layer Exposed Amount of bleeding with debridement: Mild Bleeding Controlled with: Compression and gauze Patient tolerated procedure: Patient tolerated procedure well Debridement Free Text: Following a routine excisional debridement, which was well-tolerated, an EpiFix allograft was applied. A 2 cm x 2 cm EpiFix allograft was selected. The EpiFix allograft was removed from its sterile packaging. It was then placed in the appropriate orientation onto the ulceration. 100% of the allograft was utilized. Adaptic Touch was applied topically over the allograft, and was secured in place using Steri-Strips. A dry sterile gauze dressing was then applied. The procedure was well-tolerated by the patient. This represents the 4th such application of an allograft at this site. Post-Debridement Measurements and Additional Note: Post-Debridement Measurements/Treatment - Nurse 1 - General Ulcer Assessment Start: 05/13/24 14:55 Freq: Status: Active Protocol: [email or web address] Activity Type Activity Date Activity User E-sign Co-sign Detail Recorded Client Recorded Date Recorded By Document 05/13/24 14:55 KW [id number] 05/13/24 14:59 KW Document 05/20/24 14:56 ML [id number] 05/20/24 15:03 ML Document 05/27/24 15:01 KW [id number] 05/27/24 15:06 KW Document 06/03/24 15:12 RB [id number] 06/03/24 15:15 RB 05/13/24 05/20/24 05/27/24 14:55 14:56 15:01 - Today's Visit Information Type of service Follow-up Visit Follow-up Visit (Physician/MANAGER MENTAL HEALTH (Physician/MANAGER MENTAL HEALTH ) ) Arrival Mode Ambulatory Ambulatory Transfer Assistance Accompanied by daughter Patient Identification Verified (Name & Yes Yes ) Patient Requires Transmission-Based Precautions Height and Weight Body Mass Index (BMI) 19.7 19.7 19.7 BMI Classification Normal Normal Normal Vital Signs Temperature (97.8 F-99.1 F) 96.7 F L 96.2 F L 97.0 F L Temperature Source Temporal Temporal Temporal Pulse Rate (60-100) 75 78 Pulse Location Monitor Monitor Respiratory Rate (12-18) 16 14 18 Respiratory rate source Observation Observation Observation Oxygen Delivery Method Room Air Room Air Blood Pressure (90/60-120/80) 151/78 H 168/59 H 156/82 H Blood Pressure Mean 102 95 106 Source Monitor Monitor Monitor Position Semi-Fowlers Sitting Semi-Fowlers Blood Pressure Location Left Arm Right Arm Left Arm History Since Last Visit- (Skip if this is Patient's initial visit) Have you changed medications since your No No No last visit? Any new allergies or adverse reactions No No No Had a fall/change in ADL's that may No No No increase risk of falls Signs or symptoms of abuse and/or No No No neglect since last visit Have you been in the hospital since your No No No last visit? Has dressing in place as prescribed Yes Yes Yes Has compression in place as prescribed Yes N/A Yes Has offloadiing in place as prescribed N/A N/A N/A Experienced any changes in pain level or No No No management Left Footwear Regular Shoe Regular Shoe Regular Shoe Right Footwear Regular Shoe Regular Shoe Regular Shoe Pain Scale: 0-10 Numeric Is Patient Pain Free? Yes Yes Yes 06/03/24 15:12 - Today's Visit Information Type of service Follow-up Visit (Physician/MANAGER MENTAL HEALTH ) Arrival Mode Ambulatory Transfer Assistance None Accompanied by Patient Identification Verified (Name & Yes ) Patient Requires Transmission-Based No Precautions Height and Weight Body Mass Index (BMI) 19.7 BMI Classification Normal Vital Signs Temperature (97.8 F-99.1 F) 97.5 F L Temperature Source Temporal Pulse Rate (60-100) 74 Pulse Location Monitor Respiratory Rate (12-18) 18 Respiratory rate source Observation Oxygen Delivery Method Blood Pressure (90/60-120/80) 148/35 H Blood Pressure Mean 72 Source Monitor Position Semi-Fowlers Blood Pressure Location Left Arm History Since Last Visit- (Skip if this is Patient's initial visit) Have you changed medications since your No last visit? Any new allergies or adverse reactions No Had a fall/change in ADL's that may No increase risk of falls Signs or symptoms of abuse and/or No neglect since last visit Have you been in the hospital since your No last visit? Has dressing in place as prescribed Yes Has compression in place as prescribed N/A Has offloadiing in place as prescribed N/A Experienced any changes in pain level or No management Left Footwear Right Footwear Pain Scale: 0-10 Numeric Is Patient Pain Free? Yes - Nurse 1 - General Ulcer Measurement Start: 05/13/24 14:55 Freq: Status: Active Protocol: Activity Type Activity Date Activity User E-sign Co-sign Detail Recorded Client Recorded Date Recorded By Document 05/13/24 14:55 KW [id number] 05/13/24 14:59 KW Document 05/20/24 14:56 ML [id number] 05/20/24 15:03 ML Document 05/27/24 15:01 KW [id number] 05/27/24 15:06 KW Document 06/03/24 15:12 RB [id number] 06/03/24 15:15 RB 05/13/24 05/20/24 05/27/24 14:55 14:56 15:01 Wound Center Nurse 1 2. LLE ant -Combined with other wound -Current Size (cm) - Length 2 2 2 -Current Size (cm) - Width 2.2 2 1.5 -Current Size (cm) - Depth 0.1 0.1 0.1 -Total Square Cm 4.4 4 3.0 -Date of Last Picture (Recall this 05/27/24 field) -Photo Taken -Epithelialization Small 1-33% -Tunneling -Undermining/Tunneling -Circular Undermining -Exudate Amt Medium Medium Medium -Exudate Type Serosanguineous Serosanguineous Serosanguineous -Wound Margin Distinct, Distinct, Distinct, Outline Outline Outline Attached Attached Attached -Granulation Amt Large (67-100%) Medium (34-66%) Large (67-100%) -Granulation Quality Absecon Absecon -Slough/Fibrin Yes -Necrosis Amt Small (1-33%) Medium (34-66%) -Necrotic Tissue Type Adherent Slough Adherent Slough -Structure Exposed -Texture (Joyce-wound Skin Appearance) Assessed Assessed Assessed -Moisture (Joyce-wound Skin Appearance) Assessed, Assessed Assessed, Maceration Maceration -Color (Joyce-wound Skin Appearance) Assessed Assessed Assessed -Temperature (Joyce-wound Skin No Abnormality No Abnormality No Abnormality Appearance) (Pt Warm) (Pt Warm) (Pt Warm) -Tenderness on Palpation (Joyce-wound No Yes No Skin Appearance) -Ulcer Cleansing Soap and Water Rinsed/ Rinsed/ Irrigated with Irrigated with Saline Saline -Foul Odor after Cleansing No No -Anesthetic Used 5% Lidocaine 5% Lidocaine 5% Lidocaine Gel Gel Gel 06/03/24 15:12 Wound Center Nurse 1 2. LLE ant -Combined with other wound No -Current Size (cm) - Length 2 -Current Size (cm) - Width 2 -Current Size (cm) - Depth 0.1 -Total Square Cm 4 -Date of Last Picture (Recall this field) -Photo Taken Yes -Epithelialization -Tunneling No -Undermining/Tunneling No -Circular Undermining No -Exudate Amt Medium -Exudate Type Serosanguineous -Wound Margin Distinct, Outline Attached -Granulation Amt Medium (34-66%) -Granulation Quality [place] -Slough/Fibrin Yes -Necrosis Amt Small (1-33%) -Necrotic Tissue Type Adherent Slough -Structure Exposed N/A -Texture (Joyce-wound Skin Appearance) Assessed, Friable -Moisture (Joyce-wound Skin Appearance) Assessed -Color (Joyce-wound Skin Appearance) Assessed, Hemosiderin Staining -Temperature (Joyce-wound Skin No Abnormality Appearance) (Pt Warm) -Tenderness on Palpation (Joyce-wound No Skin Appearance) -Ulcer Cleansing Wound Cleanser -Foul Odor after Cleansing No -Anesthetic Used 5% Lidocaine Gel WC - Nurse 2 - General Ulcer CM Notes Start: 05/13/24 14:55 Freq: Status: Active Protocol: Activity Type Activity Date Activity User E-sign Co-sign Detail Recorded Client Recorded Date Recorded By Document 05/13/24 15:18 DS [id number] 05/13/24 15:28 DS Document 05/20/24 15:21 DS [id number] 05/20/24 15:25 DS Edit Result 05/20/24 15:21 DS (1) [id number] 05/21/24 10:32 DS Document 05/27/24 15:30 DS [id number] 05/27/24 15:31 DS Document 06/03/24 15:35 DS [id number] 06/03/24 15:46 DS (1) 2. LLE ant - Bioengineered Tissue Yes => No - Type of Bioengineered Tissue Epifix => - Debridement - Subq, 1st 20sq cm No => Yes - Apply Skin Sub - 1st 25 sq cm - Legs 1 => - Epifix (per sq cm) 4 => 05/13/24 05/20/24 05/27/24 15:18 15:21 15:30 Wound Center Nurse 2 2. LLE ant -Time 15:19 15:21 15:25 -Correct Patient Yes Yes Yes -Correct Side, Site, Position Yes Yes Yes -Correct Procedure Yes Yes Yes -Procedure Performed Yes Yes Yes -Type of Procedure Debridement Debridement Debridement -Clinical Debridement Subcutaneous Subcutaneous Subcutaneous -Tissue Removed Subcutaneous Subcutaneous Subcutaneous -Post Debridement (cm) - Length 2.2 2.2 2.0 -Post Debridement (cm) - Width 2.0 1.8 2.0 -Post Debridement (cm) - Depth 0.1 0.1 0.1 -Total Square (Post) (cm) 4.40 3.96 4.00 -Area of Debridement (cm) - Length 2.2 2.2 2.0 -Area of Debridement (cm) - Width 2.0 1.8 2.0 -Total Square (Area) (cm) 4.40 3.96 4.00 -Tunneling No No No -Undermining/Tunneling No No No -Circular Undermining No No No -Wound/Ulcer Outcome Not Healed Not Healed Not Healed -Ulcer Cleansing Rinsed/ Rinsed/ Rinsed/ Irrigated with Irrigated with Irrigated with Saline Saline Saline -Foul Odor after Cleansing No No No -Bioengineered Tissue Yes No No -Type of Bioengineered Tissue Epifix -Expiration Date 01/07/29 -Product Lot Number [id number] -Percent Used 100 -Lot number of Saline Used [id number] -Bleeding Controlled with Pressure Pressure Pressure -Treatment Response Procedure Procedure Procedure Tolerated Well Tolerated Well Tolerated Well -Offloading -Debridement - Subq, 1st 20sq cm No Yes Yes -Apply Skin Sub - 1st 25 sq cm - Legs 1 -Epifix (per sq cm) 4 Pain Scale: 0-10 Numeric Is Patient Pain Free? Yes Yes Yes 06/03/24 15:35 Wound Center Nurse 2 2Princess MENA ant -Time 15:35 -Correct Patient Yes -Correct Side, Site, Position Yes -Correct Procedure Yes -Procedure Performed Yes -Type of Procedure Debridement -Clinical Debridement Subcutaneous -Tissue Removed Subcutaneous -Post Debridement (cm) - Length 2.0 -Post Debridement (cm) - Width 2.0 -Post Debridement (cm) - Depth 0.1 -Total Square (Post) (cm) 4.00 -Area of Debridement (cm) - Length 2.0 -Area of Debridement (cm) - Width 2.0 -Total Square (Area) (cm) 4.00 -Tunneling No -Undermining/Tunneling No -Circular Undermining No -Wound/Ulcer Outcome Not Healed -Ulcer Cleansing Rinsed/ Irrigated with Saline -Foul Odor after Cleansing No -Bioengineered Tissue Yes -Type of Bioengineered Tissue Epifix -Expiration Date 12/08/28 -Product Lot Number [id number] -Percent Used 100 -Lot number of Saline Used [id number] -Bleeding Controlled with Pressure -Treatment Response Procedure Tolerated Well -Offloading No -Debridement - Subq, 1st 20sq cm No -Apply Skin Sub - 1st 25 sq cm - Legs 1 -Epifix (per sq cm) 4 Pain Scale: 0-10 Numeric Is Patient Pain Free? Yes - Nurse 3 - General Ulcer D/C NN Start: 05/13/24 14:55 Freq: Status: Active Protocol: Activity Type Activity Date Activity User E-sign Co-sign Detail Recorded Client Recorded Date Recorded By Document 05/13/24 15:35 DS [id number] 05/13/24 15:35 DS Document 05/20/24 15:40 ML [id number] 05/20/24 15:41 ML Document 05/27/24 15:41 KW [id number] 05/27/24 15:41 KW Document 06/03/24 15:50 DS [id number] 06/03/24 15:50 DS 05/13/24 05/20/24 05/27/24 15:35 15:40 15:41 Wound Care Center Nurse 3 2. LLE ant -Ulcer Cleansing Wound Cleanser Rinsed/ Irrigated with Saline -Primary Dressing Applied Silicone Border Promogran, Promogran, Foam 6x6 Silicone Border Silicone Border Foam 4x4 Foam 4x4 -Promogran 2 1 -Silicone Border Foam 4x4 1 1 -Silicone Border Foam 6x6 1 Pain Scale: 0-10 Numeric Is Patient Pain Free? Yes Yes Yes - Visit Discharge Discharge Condition Stable Stable Ambulatory Status Ambulatory Ambulatory Transportation Private Auto Private Auto Medication Reconcilliation completed & No provided to patient/care provider Clinical Summary of Care Provided Yes 2. LLE ant -Primary Dressing Applied -Silicone Border Foam 6x6 Left -Compression Wrap 06/03/24 15:50 Wound Care Center Nurse 3 2. LLE ant -Ulcer Cleansing -Primary Dressing Applied -Promogran -Silicone Border Foam 4x4 -Silicone Border Foam 6x6 Pain Scale: 0-10 Numeric Is Patient Pain Free? Yes WC - Visit Discharge Discharge Condition Stable Ambulatory Status Ambulatory Transportation Private Auto Medication Reconcilliation completed & provided to patient/care provider Clinical Summary of Care Provided 2. LLE ant -Primary Dressing Applied Silicone Border Foam 6x6 -Silicone Border Foam 6x6 1 Left -Compression Wrap Aron Wrap Lab / Micro Data Lab results narrative: Laboratory Tests 05/30/24 11:34 WBC 3.4 L Hgb 12.7 Hct 38.2 Plt Count 310 ESR 5 Sodium 133 L Potassium 4.1 Chloride 99 Carbon Dioxide 26.0 BUN 12 Creatinine 0.78 Glucose 93 Calcium 8.8 C-React Prot Ext Range < 2.90 Charges/Coding Procedures Integumentary 150xxx-152xx: [id number] Skin sub graft trnk/arm/leg Assessment/Plan Assessment/Plan (1) Non-pressure chronic ulcer of left lower leg with fat layer exposed: CODE(S): L97.922 - Non-pressure chronic ulcer of unspecified part of left lower leg with fat layer exposed (2) Traumatic open wound of left lower leg: CODE(S): S81.802A - Unspecified open wound, left lower leg, initial encounter QUALIFIERS: Encounter type: subsequent encounter Qualified Code(s): S81.802D - Unspecified open wound, left lower leg, subsequent encounter (3) Non-pressure chronic ulcer of right lower leg with fat layer exposed: CODE(S): L97.912 - Non-pressure chronic ulcer of unspecified part of right lower leg with fat layer exposed (4) Traumatic open wound of right lower leg: CODE(S): S81.801A - Unspecified open wound, right lower leg, initial encounter QUALIFIERS: Encounter type: subsequent encounter Qualified Code(s): S81.801D - Unspecified open wound, right lower leg, subsequent encounter (5) Lumbar scoliosis: CODE(S): M41.9 - Scoliosis, unspecified QUALIFIERS: Scoliosis type: other secondary scoliosis Qualified Code(s): M41.56 - Other secondary scoliosis, lumbar region (6) Low back pain: CODE(S): M54.50 - Low back pain, unspecified (7) DDD (degenerative disc disease), lumbosacral: CODE(S): M51.37 - Other intervertebral disc degeneration, lumbosacral region (8) Hypothyroidism (acquired): CODE(S): E03.9 - Hypothyroidism, unspecified (9) Cataracts, bilateral: CODE(S): H26.9 - Unspecified cataract (10) History of tonsillectomy: CODE(S): Z90.89 - Acquired absence of other organs (11) History of IBS: CODE(S): Z87.19 - Personal history of other diseases of the digestive system (12) Former smoker: CODE(S): Z87.891 - Personal history of nicotine dependence (13) History of lumbar spinal fusion: CODE(S): Z98.1 - Arthrodesis status (14) History of hysterectomy: CODE(S): Z90.710 - Acquired absence of both cervix and uterus (15) History of cervical discectomy: CODE(S): Z98.890 - Other specified postprocedural states (16) History of total hip replacement: CODE(S): Z96.649 - Presence of unspecified artificial hip joint (17) Status post spinal disc removal: CODE(S): Z98.890 - Other specified postprocedural states PLAN: Plan This is a 74-year-old female who presented with traumatic wounds in both lower extremities. Although the patient does not relate significant swelling in her lower extremities, measures to prevent such swelling have been thoroughly discussed. The patient has been encouraged to elevate her lower extremities as much as possible. She has been advised to refrain from prolonged, idle sitting. Activity has been encouraged. The patient has been encouraged to optimize her nutritional intake. Her appetite is said to be recently depressed due to the recent loss of her . She has been provided samples of Frank, and encouraged to use a nutritional supplement on a daily basis until which time her appetite returns to normal. Because the patient's wound had failed to progress in recent weeks, a swab culture was obtained for aerobic and anaerobic bacterial growth. Culture results were positive for Acinetobacter ursingii, Staphylococcus epidermidis, and Kocuria varians. In response, the patient was provided with a prescription for Bactrim double strength to be taken twice daily for a total of 7 days. The patient is now on her last day of her antibiotic course. We have resumed the application of allografts. An EpiFix allograft was applied today, the fourth such allograft application. Allograft applications have been briefly halted, due to the positive wound cultures. The allograft site is to be left intact and undisturbed until the patient's return visit in 1 week. We are also to obtain a noninvasive lower extremity arterial study, to assess arterial perfusion in the lower extremities. The arterial study is pending. Laboratory studies have been recently obtained by the patient's primary care physician, the results of which have been reviewed and documented herein. It is also understood that the patient's primary care physician has scheduled the patient for an MRI of her left leg in the near future. The patient informs that her primary care physician, Dr. Lundberg, has renewed her prescription for Bactrim double strength for an additional week. The patient is to return in 1 week for reevaluation. Total time: 25 minutes
== END 2024-06-06 23:59 | disposition home or self-care (01) ==
LOC: WC 15:00
PROVIDERS: PCP Family Medicine Geriatric Medicine; Referring Provider Family Medicine Geriatric Medicine; Visit Provider Surgery
DX: L97.922 Non-pressure chronic ulcer of unspecified part of left lower leg with fat layer exposed (principal); L97.912 Non-pressure chronic ulcer of unspecified part of right lower leg with fat layer exposed; Z98.1 Arthrodesis status; Z90.710 Acquired absence of both cervix and uterus; H26.9 Unspecified cataract; Z87.891 Personal history of nicotine dependence; M51.370 Other intervertebral disc degeneration, lumbosacral region with discogenic back pain only; E03.9 Hypothyroidism, unspecified; M41.56 Other secondary scoliosis, lumbar region; S81.802D Unspecified open wound, left lower leg, subsequent encounter; Z87.19 Personal history of other diseases of the digestive system; Z90.89 Acquired absence of other organs; Z96.649 Presence of unspecified artificial hip joint; S81.801D Unspecified open wound, right lower leg, subsequent encounter
CPT/HCPCS: 11042; 15271; 87070; 87075; 87077; 87186; 87205; Q4186

== ENCOUNTER → 2024-07-01 | Outpatient (CLI) | payer MEDICARE, OTHER, SELFPAY ==
--- NOTE | 2024-07-01 15:34 | MRI_ITS ---
EXAM: MRI of the left tibia/fibula without and with intravenous contrast. CLINICAL HISTORY: Left lower extremity cellulitis. Wound of the anterior distal tibia/fibula region. COMPARISON: None available TECHNIQUE: Multiplanar, multisequence MRI images of the left tibia/fibula were obtained without and with intravenous contrast. 9 cc Clariscan IV contrast was administered. FINDINGS: There are region of interest markers along the anterior skin surface of the left tibia/fibula. The marrow signal of the left tibia/fibula is intact. No acute fracture or abnormal marrow replacement process of the left lower extremity. There is probable bandage material along the anterior distal left tibia/fibula region. On postcontrast images, no abnormal cortical or marrow enhancement of the left tibia/fibula. There is some mild enhancement of the anterior soft tissues and subcutaneous fat, suggesting cellulitis. No discrete soft tissue mass or drainable fluid collection of the left lower extremity. MRI/Lower Ext No Joint W/WO Cont IMPRESSION: Findings suggestive of cellulitis of the left tibia/fibula region. No MRI evidence of osteomyelitis of the left tibia/fibula. No drainable fluid collection demonstrated. Reading Location: [facility]
== END | disposition home or self-care (01) ==
LOC: MRI 15:32
PROVIDERS: PCP Family Medicine Geriatric Medicine; Referring Provider Family Medicine Geriatric Medicine; Visit Provider Family Medicine Geriatric Medicine
DX: L03.116 Cellulitis of left lower limb (principal)
CPT/HCPCS: 73720; A9575

== ENCOUNTER 2024-07-03 10:15 | Outpatient (RCR) | payer MEDICARE, OTHER, SELFPAY ==
[2024-06-07 00:54] VITALS: BP 148/35; PULSE 74; RESP 18; TEMP 36.4; BMI 19.7
[2024-06-10 14:47] VITALS: BP 139/68; PULSE 81; RESP 18; TEMP 27.2; BMI 19.7
--- NOTE | 2024-06-12 20:56 | HP.PCM_ITS ---
History of Present Illness Date of Service: 06/10/24 Chief Complaint: Bilateral lower extremity traumatic wounds History of Wound: This is a 74-year-old female who presented with traumatic wounds to both lower extremities. The wounds were located on the pretibial surfaces bilaterally. The wound on the right pretibial surface occurred approximately 1 month prior to presentation, resulting when the patient bumped her leg against a trash bin. The wound had failed to heal appropriately. More recently, approximately 10 days prior to presentation, the patient dropped a box of spaghetti noodles onto the left pretibial surface, resulting in a wound which had failed to heal. The patient was seen by her primary care physician, Dr. Lundberg, 4 days prior to presentation, where a course of Keflex and doxycycline were initiated. The patient has completed her course of antibiotics. 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 The patient is mobile and active. She denies swelling in her legs. She sleeps on a flat surface at night. She denies a history of thrombophlebitis. The patient denies a history of congestive heart failure, myocardial infarction, diabetes mellitus, cerebrovascular accident, hypertension, renal disease, and pulmonary disease. She has a history of hypothyroidism. A limited venous duplex examination is noted to have been performed on October 26, 2022, examining only the right lower extremity, and revealing no evidence of thrombophlebitis. Valvular competence was not fully evaluated. FORMERLY [facility] Medical History Traumatic open wound of right lower leg Traumatic open wound of left lower leg Non-pressure chronic ulcer of left lower leg with fat layer exposed Non-pressure chronic ulcer of right lower leg with fat layer exposed Traumatic open wound of right lower leg with delayed healing Traumatic open wound of left lower leg with delayed healing Wears glasses Anxiety Alcohol use History of steroid therapy Easy bruising Back pain Injury of back Migraine headache Syncope History of IBS Former smoker Leg cramps History of edema History of stress test Cataracts, bilateral Arthritis Anemia Vitamin D deficiency, unspecified Hypothyroidism Home Medications ?Medication ?Instructions ?Recorded ?Last Taken ?Type lidocaine 5 % topical patch 2 patch topical DAILY 04/10 08/24 1 Day Ago History ~09/21/17 meloxicam 15 mg tablet 15 mg PO QDAY 05/03/1709/22 History doxepin 10 mg capsule 10 mg PO QHS 12/16/19 Unknow n History folic acid 400 mcg tablet 0.4 mg PO DAILY@0800 0 Unknown History linaclotide 145 mcg capsule 145 mcg PO DAILY 12/16/19 Unknown History estradiol 0.1 mg/24 hr semiweekly 2 patch transdermal MOTH 03/15/20 Unknown History transdermal patch (Bessie) acetaminophen 500 mg tablet 1,000 mg PO BID 01/06/22 U nknown History vitamin [id number] B1 100 mg-1 1 ml IM .QMO 01/06/22 Unknown History mg/mL intramuscular solution levothyroxine 50 mcg tablet 50 mcg PO DAILY 03/18/24 U nknown History gabapentin 100 mg capsule 100 mg PO BID 05/07/24 Unkno wn History loratadine 10 mg tablet 10 mg PO .prn 05/07/24 Unkno wn History sulfamethoxazole 800 1 tab PO Q12H #14 tabs 05/27 Unknown Rx mg-trimethoprim 160 mg tablet (Bactrim DS) Allergy/AdvReac Type Severity Reaction Status Date / Time No Known Allergies Allergy Verified 05/07/24 11:09 Family History Mother Rheumatoid arthritis Father Pancreatic cancer Cancer Grandfather Myocardial infarction Grandmother Thyroid disorder Surgical History Status post spinal disc removal History of tonsillectomy History of lumbar spinal fusion History of total hip replacement History of hysterectomy History of cervical discectomy Social History household members: spouse Smoking Status: Never smoker alcohol intake: current alcohol intake frequency: a few times a week Alcohol type: wine substance use type: does not use what type of physical activity do you participate in: other details: physical therapy frequency: 1-2 times per week Vital Signs Vital Signs Vital Signs: Weight Weight: 101 lb Body Mass Index (BMI) 19.7 Physical Exam Const alert, oriented x3, no apparent distress, average body habitus and no limitations Constitutional Narrative: The patient's BMI is 19.7. She is of thin body habitus. General Appearance: cooperative, comfortable, well kempt and well developed Orientation / Consciousness: awake, oriented to person, oriented to place and oriented to time Exam Limitations: no limitations HEENT normocephalic, head/scalp atraumatic and hearing grossly normal bilaterally Head and Scalp: normal to inspection, normocephalic and atraumatic Face and Sinus: normal facial exam Nose: external nose normal External Ear: external ears normal Eyes EOMs intact bilaterally General Eye: normal appearance of both eyes Neck full ROM Resp normal respiratory effort, normal air movement, no retractions and no use of accessory muscles Effort and Inspection: able to speak in complete sentences Extremity no calf tenderness General Extremity: Negative for clubbing or cyanosis Skin Wound Narrative: The patient's lower extremities appear warm and well-perfused. Pedal pulses are easily palpable bilaterally. There is no significant swelling or edema in the patient's lower extremities. The wound on the right pretibial surface remains completely healed and epithelialized. A wound remains on the left pretibial surface. The wound is full-thickness in nature. There is minimal bioburden. Dimensions are documented elsewhere. The wound has not diminished in size or appearance significantly within the last several weeks. There is no obvious sign of infection or cellulitis. Wound margins are well beveled. Hair: normal Neuro oriented x3, CN's II-XII intact bilaterally, moves all extremities, no focal motor deficits and no sensory deficits noted Sensorium / Orientation: awake, alert, oriented to person, oriented to place and oriented to time Speech: speech normal Psych Appearance: grossly normal and appropriate Attitude: calm Activity / Motor Behavior: appropriate eye contact Speech: normal speech Mood & Affect: euthymic mood Thought Process: normal thought process Thought Content: normal thought content Attention / Concentration: attention grossly intact Debridement Note Debridement Note Wound debrided: Left pretibial wound Laterality: Left Type of Debridement: Excisional debridement Anesthesia Used: 5% Lidocaine Gel and Cetacaine Depth: Down to and including healthy tissue and in the subcutaneous layer Percentage of wound debrided: 100 Instrument Used: 5mm curette Tissue Removed: Small amount of bioburden Severity: Fat Layer Exposed Amount of bleeding with debridement: Mild Bleeding Controlled with: Compression and gauze Patient tolerated procedure: Patient tolerated procedure well Post-Debridement Measurements and Additional Note: Post-Debridement Measurements/Treatment WC - Nurse 1 - General Ulcer Assessment Start: 06/10/24 14:46 Freq: Status: Active Protocol: .LOWEXSelina Activity Type Activity Date Activity User E-sign Co-sign Detail Recorded Client Recorded Date Recorded By Document 06/10/24 14:47 [employer]Mesh [id number] 06/10/24 14:58 06/10/24 14:47 - Today's Visit Information Type of service Follow-up Visit (Physician/CHRONIC DISEASE MANAGER ) Arrival Mode Ambulatory Accompanied by daughter Patient Identification Verified (Name & Yes ) Height and Weight Body Mass Index (BMI) 19.7 BMI Classification Normal Vital Signs Temperature (97.8 F-99.1 F) 81 F L Temperature Source Temporal Pulse Rate (60-100) 81 Pulse Location Monitor Respiratory Rate (12-18) 18 Respiratory rate source Observation Oxygen Delivery Method Room Air Blood Pressure (90/60-120/80) 139/68 H Blood Pressure Mean 91 Source Monitor Position Sitting Blood Pressure Location Right Arm History Since Last Visit- (Skip if this is Patient's initial visit) Have you changed medications since your No last visit? Any new allergies or adverse reactions No Had a fall/change in ADL's that may No increase risk of falls Signs or symptoms of abuse and/or No neglect since last visit Have you been in the hospital since your No last visit? Has dressing in place as prescribed Yes Has compression in place as prescribed Yes Has offloadiing in place as prescribed N/A Experienced any changes in pain level or No management Left Footwear Regular Shoe Right Footwear Regular Shoe Pain Scale: 0-10 Numeric Is Patient Pain Free? Yes - Nurse 1 - General Ulcer Measurement Start: 06/10/24 14:46 Freq: Status: Active Protocol: Activity Type Activity Date Activity User E-sign Co-sign Detail Recorded Client Recorded Date Recorded By Document 06/10/24 14:47 KW [id number] 06/10/24 14:58 06/10/24 14:47 Wound Center Nurse 1 2. LLE ant -Current Size (cm) - Length 2 -Current Size (cm) - Width 1.8 -Current Size (cm) - Depth 0.1 -Total Square Cm 3.6 -Date of Last Picture (Recall this 06/10/24 field) -Exudate Amt Large -Exudate Type Yellow/Green -Wound Margin Distinct, Outline Attached -Granulation Amt Large (67-100%) -Granulation [place] -Necrosis Amt Large (67-100%) -Necrotic Tissue Type Adherent Slough -Texture (Joyce-wound Skin Appearance) Assessed -Moisture (Joyce-wound Skin Appearance) Assessed -Color (Joyce-wound Skin Appearance) Assessed, Ecchymosis -Temperature (Joyce-wound Skin No Abnormality Appearance) (Pt Warm) -Tenderness on Palpation (Joyce-wound No Skin Appearance) -Ulcer Cleansing Soap and Water -Foul Odor after Cleansing No -Anesthetic Used 5% Lidocaine Gel WC - Nurse 2 - General Ulcer CM Notes Start: 06/10/24 14:46 Freq: Status: Active Protocol: Activity Type Activity Date Activity User E-sign Co-sign Detail Recorded Client Recorded Date Recorded By Document 06/10/24 15:43 DS [id number] 06/10/24 15:47 DS 06/10/24 15:43 Wound Center Nurse 2 -Time 15:43 -Correct Patient Yes -Correct Side, Site, Position Yes -Correct Procedure Yes -Procedure Performed Yes -Type of Procedure Debridement -Clinical Debridement Subcutaneous -Tissue Removed Subcutaneous -Post Debridement (cm) - Length 2.0 -Post Debridement (cm) - Width 1.9 -Post Debridement (cm) - Depth 0.1 -Total Square (Post) (cm) 3.80 -Area of Debridement (cm) - Length 2.0 -Area of Debridement (cm) - Width 1.9 -Total Square (Area) (cm) 3.80 -Tunneling No -Undermining/Tunneling No -Circular Undermining No -Wound/Ulcer Outcome Not Healed -Ulcer Cleansing Rinsed/ Irrigated with Saline -Foul Odor after Cleansing No -Bioengineered Tissue No -Bleeding Controlled with Pressure -Treatment Response Procedure Tolerated Well -Debridement - Subq, 1st 20sq cm Yes Pain Scale: 0-10 Numeric Is Patient Pain Free? Yes Charges/Coding Procedures Integumentary [id number]: [id number] [place] subq tissue 20 sq cm/< Assessment/Plan Assessment/Plan (1) Non-pressure chronic ulcer of left lower leg with fat layer exposed: CODE(S): L97.922 - Non-pressure chronic ulcer of unspecified part of left lower leg with fat layer exposed (2) Traumatic open wound of left lower leg: CODE(S): S81.802A - Unspecified open wound, left lower leg, initial encounter QUALIFIERS: Encounter type: subsequent encounter Qualified Code(s): S81.802D - Unspecified open wound, left lower leg, subsequent encounter (3) Non-pressure chronic ulcer of right lower leg with fat layer exposed: CODE(S): L97.912 - Non-pressure chronic ulcer of unspecified part of right lower leg with fat layer exposed (4) Traumatic open wound of right lower leg: CODE(S): S81.801A - Unspecified open wound, right lower leg, initial encounter QUALIFIERS: Encounter type: subsequent encounter Qualified Code(s): S81.801D - Unspecified open wound, right lower leg, subsequent encounter (5) Lumbar scoliosis: CODE(S): M41.9 - Scoliosis, unspecified QUALIFIERS: Scoliosis type: other secondary scoliosis Qualified Code(s): M41.56 - Other secondary scoliosis, lumbar region (6) Low back pain: CODE(S): M54.50 - Low back pain, unspecified (7) DDD (degenerative disc disease), lumbosacral: CODE(S): M51.37 - Other intervertebral disc degeneration, lumbosacral region (8) Hypothyroidism (acquired): CODE(S): E03.9 - Hypothyroidism, unspecified (9) Cataracts, bilateral: CODE(S): H26.9 - Unspecified cataract (10) History of tonsillectomy: CODE(S): Z90.89 - Acquired absence of other organs (11) History of IBS: CODE(S): Z87.19 - Personal history of other diseases of the digestive system (12) Former smoker: CODE(S): Z87.891 - Personal history of nicotine dependence (13) History of lumbar spinal fusion: CODE(S): Z98.1 - Arthrodesis status (14) History of hysterectomy: CODE(S): Z90.710 - Acquired absence of both cervix and uterus (15) History of cervical discectomy: CODE(S): Z98.890 - Other specified postprocedural states (16) History of total hip replacement: CODE(S): Z96.649 - Presence of unspecified artificial hip joint (17) Status post spinal disc removal: CODE(S): Z98.890 - Other specified postprocedural states PLAN: Plan This is a 74-year-old female who presented with traumatic wounds in both lower extremities. Although the patient does not relate significant swelling in her lower extremities, measures to prevent such swelling have been thoroughly discussed. The patient has been encouraged to elevate her lower extremities as much as possible. She has been advised to refrain from prolonged, idle sitting. Activity has been encouraged. The patient has been encouraged to optimize her nutritional intake. Her appetite is said to be recently depressed due to the recent loss of her . She has been provided samples of Frank, and encouraged to use a nutritional supplement on a daily basis until which time her appetite returns to normal. Because the patient's wound had failed to progress in recent weeks, a swab culture was obtained for aerobic and anaerobic bacterial growth. Culture results were positive for Acinetobacter ursingii, Staphylococcus epidermidis, and Kocuria varians. In response, the patient was provided with a prescription for Bactrim double strength to be taken twice daily for a total of 7 days. The patient has completed her course of antibiotics. We are to implement the use of Promogran, which will be applied topically on a daily basis. The patient has been provided the product for use, and has been instructed in the appropriate means of application. A noninvasive lower extremity arterial study is scheduled for June 13, 2024, the results of which should be available upon the patient's return visit in 1 week. Laboratory studies have been recently obtained by the patient's primary care physician, the results of which have been reviewed. It is also understood that the patient's primary care physician has scheduled the patient for an MRI of her left leg in the near future. The patient is to return in 1 week for reevaluation. Total time: 24 minutes
--- NOTE | 2024-06-13 12:51 | ART_ITS ---
Reason For Study Reason For Study: LLE Wound Procedure A bilateral lower extremity continuous wave Doppler with analog waveform analysis,segmental pressures,and ankle brachial indexes without exercise. Left Segmental Pressures Left brachial= 150mmHg. Left posterior tibial artery = 182mmHg. Left dorsalis pedis artery = 188mmHg. Left digit = 123 mmHg. The left posterior tibial artery waveforms are triphasic. The left dorsalis pedis waveforms are triphasic. Right Segmental Pressures Right brachial= 160mmHg. Right posterior tibial artery = 169mmHg. Right dorsalis pedis artery = 176mmHg. Right digit = 126 mmHg. The right posterior tibial artery waveforms are triphasic. The right dorsalis pedis waveforms are triphasic. Indices The right ankle brachial index by the posterior tibial artery is 1.06. The right ankle brachial index by the dorsalis pedis is 1.10. The right digital-brachial index is 0.79. The left ankle brachial index by the posterior tibial artery is 1.14. The left ankle brachial index by the dorsalis pedis is 1.18. The left digital-brachial index is 0.77. VL/Lower Ext Art Exam w/o Exercis Interpretation Summary Triphasic Doppler waveforms are noted at ankle level bilaterally. Pulse-volume recordings appear satisfactory at all levels bilaterally. Resting ankle-brachial indices are normal bilaterally. Digi christel-brachial indices are normal bilaterally. There is no evidence of significant arterial occlusive disease in the lower ext remities bilaterally. Ordering Physician: Natan Mcdaniel Referring Physician: Anders Lundberg Chi Performed By: Deon Burrell RVT
[2024-06-17 14:54] VITALS: BP 169/78; PULSE 73; RESP 18; TEMP 36.2; BMI 19.7
--- NOTE | 2024-06-19 11:14 | WC ---
PHOTO 06/17/24 LEFT WEEKS
[2024-07-03 10:14] VITALS: BP 149/69; PULSE 66; RESP 16; TEMP 35.9; BMI 19.7
--- NOTE | 2024-07-03 16:09 | PCM.WC.HP ---
History of Present Illness Date of Service: 07/03/24 Chief Complaint: Bilateral lower extremity traumatic wounds History of Wound: This is a 74-year-old female who presented with traumatic wounds to both lower extremities. The wounds were located on the pretibial surfaces bilaterally. The wound on the right pretibial surface occurred approximately 1 month prior to presentation, resulting when the patient bumped her leg against a trash bin. The wound had failed to heal appropriately. More recently, approximately 10 days prior to presentation, the patient dropped a box of spaghetti noodles onto the left pretibial surface, resulting in a wound which had failed to heal. The patient was seen by her primary care physician, Dr. Lundberg, 4 days prior to presentation, where a course of Keflex and doxycycline were initiated. The patient has completed her course of antibiotics. 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 The patient is mobile and active. She denies swelling in her legs. She sleeps on a flat surface at night. She denies a history of thrombophlebitis. The patient denies a history of congestive heart failure, myocardial infarction, diabetes mellitus, cerebrovascular accident, hypertension, renal disease, and pulmonary disease. She has a history of hypothyroidism. A limited venous duplex examination is noted to have been performed on October 26, 2022, examining only the right lower extremity, and revealing no evidence of thrombophlebitis. Valvular competence was not fully evaluated. [facility] Medical History Traumatic open wound of right lower leg Traumatic open wound of left lower leg Non-pressure chronic ulcer of left lower leg with fat layer exposed Non-pressure chronic ulcer of right lower leg with fat layer exposed Traumatic open wound of right lower leg with delayed healing Traumatic open wound of left lower leg with delayed healing Wears glasses Anxiety Alcohol use History of steroid therapy Easy bruising Back pain Injury of back Migraine headache Syncope History of IBS Former smoker Leg cramps History of edema History of stress test Cataracts, bilateral Arthritis Anemia Vitamin D deficiency, unspecified Hypothyroidism Home Medications ?Medication ?Instructions ?Recorded ?Last Taken ?Type lidocaine 5 % topical patch 2 patch topical DAILY 05/03/17 1 Day Ago History ~09/21/17 meloxicam 15 mg tablet 15 mg PO QDAY 05/03/17 09/22/17 History doxepin 10 mg capsule 10 mg PO QHS 12/16/19 Unknown History folic acid 400 mcg tablet 0.4 mg PO DAILY@0800 12/16/19 Unknown History linaclotide 145 mcg capsule 145 mcg PO DAILY 12/16/19 Unknown History estradiol 0.1 mg/24 hr semiweekly 2 patch transdermal MOTH 03/15/20 Unknown History transdermal patch (Bessie) acetaminophen 500 mg tablet 1,000 mg PO BID 01/06/22 Unknown History vitamin [id number] B1 100 mg-1 1 ml IM .QMO 01/06/22 Unknown History mg/mL intramuscular solution levothyroxine 50 mcg tablet 50 mcg PO DAILY 03/18/24 Unknown History gabapentin 100 mg capsule 100 mg PO BID 05/07/24 Unknown History loratadine 10 mg tablet 10 mg PO .prn 05/07/24 Unknown History sulfamethoxazole 800 1 tab PO Q12H #14 tabs 05/27/24 Unknown Rx mg-trimethoprim 160 mg tablet (Bactrim DS) Allergy/AdvReac Type Severity Reaction Status Date / Time No Known Allergies Allergy Verified 05/07/24 11:09 Family History Mother Rheumatoid arthritis Father Pancreatic cancer Cancer Grandfather Myocardial infarction Grandmother Thyroid disorder Surgical History Status post spinal disc removal History of tonsillectomy History of lumbar spinal fusion History of total hip replacement History of hysterectomy History of cervical discectomy Social History household members: spouse Smoking Status: Never smoker alcohol intake: current alcohol intake frequency: a few times a week Alcohol type: wine substance use type: does not use what type of physical activity do you participate in: other details: physical therapy frequency: 1-2 times per week Vital Signs Vital Signs Vital Signs: 07/03/24 10:14 Temperature 96.7 F L Temperature Source Temporal Pulse Rate 66 Respiratory Rate 16 Blood Pressure 149/69 H Blood Pressure Mean 95 Blood Pressure Source Monitor Blood Pressure Position Semi-Fowlers Blood Pressure Location Left Arm Oxygen Delivery Method Room Air Weight Weight: 101 lb Body Mass Index (BMI) 19.7 Physical Exam Const alert, oriented x3, no apparent distress, average body habitus and no limitations Constitutional Narrative: The patient's BMI is 19.7. She is of thin body habitus. General Appearance: cooperative, comfortable, well kempt and well developed Orientation / Consciousness: awake, oriented to person, oriented to place and oriented to time Exam Limitations: no limitations HEENT normocephalic, head/scalp atraumatic and hearing grossly normal bilaterally Head and Scalp: normal to inspection, normocephalic and atraumatic Face and Sinus: normal facial exam Nose: external nose normal External Ear: external ears normal Eyes EOMs intact bilaterally General Eye: normal appearance of both eyes Neck full ROM Resp normal respiratory effort, normal air movement, no retractions and no use of accessory muscles Effort and Inspection: able to speak in complete sentences Extremity no calf tenderness General Extremity: Negative for clubbing or cyanosis Skin Wound Narrative: The patient's lower extremities appear warm and well-perfused. Pedal pulses are easily palpable bilaterally. There is no significant swelling or edema in the patient's lower extremities. The wound on the right pretibial surface remains completely healed and epithelialized. A wound remains on the left pretibial surface. The wound is full-thickness in nature. There is moderate bioburden. Dimensions are documented elsewhere. The wound appears to have decreased in size since the patient's last visit, with evidence of peripheral epithelialization. Dimensions are documented elsewhere. There is no sign of infection or cellulitis. Wound margins are well beveled. A new traumatic wound is noted on the patient's left pretibial surface, superior to the original wound. The wound occurred 1 week ago, and is traumatic in origin. It is full-thickness, extending through all layers of the dermis and into subcutaneous tissues. There is no sign of infection or cellulitis. Dimensions are documented elsewhere. There are no significant flaps, devitalized or otherwise. Hair: normal Neuro oriented x3, CN's II-XII intact bilaterally, moves all extremities, no focal motor deficits and no sensory deficits noted Sensorium / Orientation: awake, alert, oriented to person, oriented to place and oriented to time Speech: speech normal Psych Appearance: grossly normal and appropriate Attitude: calm Activity / Motor Behavior: appropriate eye contact Speech: normal speech Mood & Affect: euthymic mood Thought Process: normal thought process Thought Content: normal thought content Attention / Concentration: attention grossly intact Debridement Note Debridement Note Wound debrided: Left pretibial wounds x 2 Laterality: Left Type of Debridement: Excisional debridement Anesthesia Used: 5% Lidocaine Gel and Cetacaine Depth: Down to and including healthy tissue and in the subcutaneous layer Percentage of wound debrided: 100 Instrument Used: 5mm curette Tissue Removed: Moderate amount of bioburden Severity: Fat Layer Exposed Amount of bleeding with debridement: Mild Bleeding Controlled with: Compression and gauze Patient tolerated procedure: Patient tolerated procedure well Post-Debridement Measurements and Additional Note: Post-Debridement Measurements/Treatment - Nurse 1 - General Ulcer Assessment Start: 06/10/24 14:46 Freq: Status: Active Protocol: PassionTagT Activity Type Activity Date Activity User E-sign Co-sign Detail Recorded Client Recorded Date Recorded By Document 06/10/24 14:47 KW [id number] 06/10/24 14:58 KW Document 06/17/24 14:54 KW [id number] 06/17/24 14:58 KW Document 07/03/24 10:14 KW [id number] 07/03/24 10:31 KW 06/10/24 06/17/24 07/03/24 14:47 14:54 10:14 - Today's Visit Information Type of service Follow-up Visit Follow-up Visit Follow-up Visit (Physician/VASCULAR MANAGER (Physician/VASCULAR MANAGER (Physician/VASCULAR MANAGER ) ) ) Arrival Mode Ambulatory Ambulatory Ambulatory Accompanied by daughter daughter Patient Identification Verified (Name & Yes Yes Yes ) Height and Weight Body Mass Index (BMI) 19.7 19.7 19.7 BMI Classification Normal Normal Normal Vital Signs Temperature (97.8 F-99.1 F) 81 F L 97.1 F L 96.7 F L Temperature Source Temporal Temporal Temporal Pulse Rate (60-100) 81 73 66 Pulse Location Monitor Monitor Monitor Respiratory Rate (12-18) 18 18 16 Respiratory rate source Observation Observation Observation Oxygen Delivery Method Room Air Room Air Room Air Blood Pressure (90/60-120/80) 139/68 H 169/78 H 149/69 H Blood Pressure Mean 91 108 95 Source Monitor Monitor Monitor Position Sitting Semi-Fowlers Semi-Fowlers Blood Pressure Location Right Arm Left Arm Left Arm History Since Last Visit- (Skip if this is Patient's initial visit) Have you changed medications since your No No No last visit? Any new allergies or adverse reactions No No No Had a fall/change in ADL's that may No No Yes increase risk of falls Signs or symptoms of abuse and/or No No No neglect since last visit Have you been in the hospital since your No No No last visit? Has dressing in place as prescribed Yes Yes Yes Has compression in place as prescribed Yes No Yes Has offloadiing in place as prescribed N/A N/A N/A Experienced any changes in pain level or No No No management Left Footwear Regular Shoe Regular Shoe Regular Shoe Right Footwear Regular Shoe Regular Shoe Regular Shoe Pain Scale: 0-10 Numeric Is Patient Pain Free? Yes Yes Yes WC - Nurse 1 - General Ulcer Measurement Start: 06/10/24 14:46 Freq: Status: Active Protocol: Activity Type Activity Date Activity User E-sign Co-sign Detail Recorded Client Recorded Date Recorded By Document 06/10/24 14:47 KW [id number] 06/10/24 14:58 KW Document 06/17/24 14:54 KW [id number] 06/17/24 14:58 KW Document 07/03/24 10:14 KW [id number] 07/03/24 10:31 KW 06/10/24 06/17/24 07/03/24 14:47 14:54 10:14 Wound Center Nurse 1 #3 LLE INF -Current Size (cm) - Length 1.2 -Current Size (cm) - Width 1.3 -Current Size (cm) - Depth 0.1 -Total Square Cm 1.56 -Date of Last Picture (Recall this 07/03/24 field) -Exudate Amt Large -Exudate Type Serosanguineous -Wound Margin Distinct, Outline Attached -Granulation Amt Large (67-100%) -Granulation Quality Pale,[place] -Necrosis Amt Small (1-33%) -Necrotic Tissue Type Adherent Slough -Texture (Joyce-wound Skin Appearance) Assessed -Moisture (Joyce-wound Skin Appearance) Assessed -Color (Joyce-wound Skin Appearance) Assessed -Temperature (Joyce-wound Skin No Abnormality Appearance) (Pt Warm) -Tenderness on Palpation (Joyce-wound No Skin Appearance) -Ulcer Cleansing Rinsed/ Irrigated with Saline -Foul Odor after Cleansing No -Anesthetic Used 5% Lidocaine Gel 2. LLE ant -Current Size (cm) - Length 2 1.9 3 -Current Size (cm) - Width 1.8 2.3 0.4 -Current Size (cm) - Depth 0.1 0.1 0.1 -Total Square Cm 3.6 4.37 1.2 -Date of Last Picture (Recall this 06/10/24 06/17/24 07/03/24 field) -Exudate Amt Large Small Small -Exudate Type Yellow/Green Serosanguineous -Wound Margin Distinct, Indistinct, Non Distinct, Outline -Visible Outline Attached Attached -Granulation Amt Large (67-100%) Large (67-100%) Medium (34-66%) -Granulation Quality [place] Red -Necrosis Amt Large (67-100%) -Necrotic Tissue Type Adherent Slough -Texture (Joyce-wound Skin Appearance) Assessed Assessed Assessed -Moisture (Joyce-wound Skin Appearance) Assessed Assessed Assessed -Color (Joyce-wound Skin Appearance) Assessed, Assessed Assessed, Ecchymosis Ecchymosis -Temperature (Joyce-wound Skin No Abnormality No Abnormality No Abnormality Appearance) (Pt Warm) (Pt Warm) (Pt Warm) -Tenderness on Palpation (Joyce-wound No No No Skin Appearance) -Ulcer Cleansing Soap and Water Rinsed/ Rinsed/ Irrigated with Irrigated with Saline Saline -Foul Odor after Cleansing No No -Anesthetic Used 5% Lidocaine 5% Lidocaine 5% Lidocaine Gel Gel Gel Left Ankle (cm) 27.5 Left Foot (cm) 17.4 WC - Nurse 2 - General Ulcer CM Notes Start: 06/10/24 14:46 Freq: Status: Active Protocol: Activity Type Activity Date Activity User E-sign Co-sign Detail Recorded Client Recorded Date Recorded By Document 06/10/24 15:43 DS [id number] 06/10/24 15:47 DS Document 06/17/24 15:08 [id number] 06/17/24 15:11 Document 07/03/24 11:10 DS [id number] 07/03/24 11:12 DS 06/10/24 06/17/24 07/03/24 15:43 15:08 11:10 Wound Center Nurse 2 #3 LLE INF -Time 11:05 -Correct Patient Yes -Correct Side, Site, Position Yes -Correct Procedure Yes -Procedure Performed Yes -Type of Procedure Debridement -Clinical Debridement Subcutaneous -Tissue Removed Subcutaneous -Post Debridement (cm) - Length 3.0 -Post Debridement (cm) - Width 1.5 -Post Debridement (cm) - Depth 0.2 -Total Square (Post) (cm) 4.50 -Area of Debridement (cm) - Length 3.0 -Area of Debridement (cm) - Width 1.5 -Total Square (Area) (cm) 4.50 -Tunneling No -Undermining/Tunneling No -Circular Undermining No -Wound/Ulcer Outcome Not Healed -Ulcer Cleansing Rinsed/ Irrigated with Saline -Foul Odor after Cleansing No -Bioengineered Tissue No -Bleeding Controlled with Pressure -Treatment Response Procedure Tolerated Well -Debridement - Subq, 1st 20sq cm Yes 2. LLE ant -Time 15:43 15:09 11:05 -Correct Patient Yes Yes Yes -Correct Side, Site, Position Yes Yes Yes -Correct Procedure Yes Yes Yes -Procedure Performed Yes Yes Yes -Type of Procedure Debridement Debridement Debridement -Clinical Debridement Subcutaneous Subcutaneous Subcutaneous -Tissue Removed Subcutaneous Subcutaneous Subcutaneous -Post Debridement (cm) - Length 2.0 2.0 1.5 -Post Debridement (cm) - Width 1.9 1.6 1.4 -Post Debridement (cm) - Depth 0.1 0.1 0.1 -Total Square (Post) (cm) 3.80 3.20 2.10 -Area of Debridement (cm) - Length 2.0 2.0 1.5 -Area of Debridement (cm) - Width 1.9 1.6 1.4 -Total Square (Area) (cm) 3.80 3.20 2.10 -Tunneling No No No -Undermining/Tunneling No No No -Circular Undermining No No No -Wound/Ulcer Outcome Not Healed Not Healed Not Healed -Ulcer Cleansing Rinsed/ Rinsed/ Rinsed/ Irrigated with Irrigated with Irrigated with Saline Saline Saline -Foul Odor after Cleansing No No No -Bioengineered Tissue No No No -Bleeding Controlled with Pressure Pressure Pressure -Treatment Response Procedure Procedure Procedure Tolerated Well Tolerated Well Tolerated Well -Offloading No -Debridement - Subq, 1st 20sq cm Yes Yes No Pain Scale: 0-10 Numeric Is Patient Pain Free? Yes Yes Yes WC - Nurse 3 - General Ulcer D/C NN Start: 06/10/24 14:46 Freq: Status: Active Protocol: Activity Type Activity Date Activity User E-sign Co-sign Detail Recorded Client Recorded Date Recorded By Document 06/10/24 15:50 DS [id number] 06/20/24 15:35 DS Document 06/20/24 15:15 DS [id number] 06/20/24 15:38 DS Edit Time 06/17/24 15:15 DS 06/20/24 15:15=>06/17/24 15:15 [id number] 06/20/24 15:38 DS Document 07/03/24 11:23 DS [id number] 07/03/24 11:24 DS 06/10/24 06/17/24 07/03/24 15:50 15:15 11:23 Wound Care Center Nurse 3 #3 LLE INF -Ulcer Cleansing Rinsed/ Irrigated with Saline -Primary Dressing Applied Promogran, Silicone Border Foam 4x4 -Promogran 1 -Silicone Border Foam 4x4 1 2. LLE ant -Ulcer Cleansing Rinsed/ Rinsed/ Rinsed/ Irrigated with Irrigated with Irrigated with Saline Saline Saline -Primary Dressing Applied Promogran, Promogran, Promogran, Silicone Border Silicone Border Silicone Border Foam 4x4 Foam 4x4 Foam 4x4 -Promogran 1 1 0 -Silicone Border Foam 4x4 1 1 1 LLE -Compression Wrap Aron Wrap Pain Scale: 0-10 Numeric Is Patient Pain Free? Yes Yes Yes WC - Visit Discharge Discharge Condition Stable Stable Stable Ambulatory Status Ambulatory Ambulatory Ambulatory Transportation Private Auto Private Auto Accompanied by daughter Charges/Coding Procedures Integumentary [id number]: [id number] [place] subq tissue 20 sq cm/< Assessment/Plan Assessment/Plan (1) Non-pressure chronic ulcer of left lower leg with fat layer exposed: CODE(S): L97.922 - Non-pressure chronic ulcer of unspecified part of left lower leg with fat layer exposed (2) Traumatic open wound of left lower leg: CODE(S): S81.802A - Unspecified open wound, left lower leg, initial encounter QUALIFIERS: Encounter type: subsequent encounter Qualified Code(s): S81.802D - Unspecified open wound, left lower leg, subsequent encounter (3) Non-pressure chronic ulcer of right lower leg with fat layer exposed: CODE(S): L97.912 - Non-pressure chronic ulcer of unspecified part of right lower leg with fat layer exposed (4) Traumatic open wound of right lower leg: CODE(S): S81.801A - Unspecified open wound, right lower leg, initial encounter QUALIFIERS: Encounter type: subsequent encounter Qualified Code(s): S81.801D - Unspecified open wound, right lower leg, subsequent encounter (5) Lumbar scoliosis: CODE(S): M41.9 - Scoliosis, unspecified QUALIFIERS: Scoliosis type: other secondary scoliosis Qualified Code(s): M41.56 - Other secondary scoliosis, lumbar region (6) Low back pain: CODE(S): M54.50 - Low back pain, unspecified (7) DDD (degenerative disc disease), lumbosacral: CODE(S): M51.37 - Other intervertebral disc degeneration, lumbosacral region (8) Hypothyroidism (acquired): CODE(S): E03.9 - Hypothyroidism, unspecified (9) Cataracts, bilateral: CODE(S): H26.9 - Unspecified cataract (10) History of tonsillectomy: CODE(S): Z90.89 - Acquired absence of other organs (11) History of IBS: CODE(S): Z87.19 - Personal history of other diseases of the digestive system (12) Former smoker: CODE(S): Z87.891 - Personal history of nicotine dependence (13) History of lumbar spinal fusion: CODE(S): Z98.1 - Arthrodesis status (14) History of hysterectomy: CODE(S): Z90.710 - Acquired absence of both cervix and uterus (15) History of cervical discectomy: CODE(S): Z98.890 - Other specified postprocedural states (16) History of total hip replacement: CODE(S): Z96.649 - Presence of unspecified artificial hip joint (17) Status post spinal disc removal: CODE(S): Z98.890 - Other specified postprocedural states PLAN: Plan This is a 74-year-old female who presented with traumatic wounds in both lower extremities. Although the patient does not relate significant swelling in her lower extremities, measures to prevent such swelling have been thoroughly discussed. The patient has been encouraged to elevate her lower extremities as much as possible. She has been advised to refrain from prolonged, idle sitting. Activity has been encouraged. The patient has been encouraged to optimize her nutritional intake. Her appetite is said to be recently depressed due to the recent loss of her . She has been provided samples of Frank, and encouraged to use a nutritional supplement on a daily basis until which time her appetite returns to normal. Because the patient's wound had failed to progress in recent weeks, a swab culture was obtained for aerobic and anaerobic bacterial growth. Culture results were positive for Acinetobacter ursingii, Staphylococcus epidermidis, and Kocuria varians. In response, the patient was provided with a prescription for Bactrim double strength to be taken twice daily for a total of 7 days. The patient has completed her course of antibiotics. We are to continue the use of Promogran, which will be applied topically on a daily basis. The patient has been provided the product for use, and has been instructed in the appropriate means of application. The left lower extremity wound appears to have diminished in size. However, because of a failure to progress as expected, the patient's wound has been swabbed for aerobic and anaerobic bacterial culture. Culture results will be awaited. The patient now has a second wound on the left pretibial surface, superior to the original wound, which occurred due to trauma from her brothers wheelchair. The traumatic wound occurred 1 week ago. We are to implement the use of Promogran topically to this wound as well. In addition to the Promogran, each of the wounds will be covered with [place] SAP. A noninvasive lower extremity arterial study was performed on June 13, 2024, the results of which revealed no evidence of significant arterial occlusive disease in the lower extremities. Laboratory studies have been recently obtained by the patient's primary care physician, the results of which have been reviewed. The patient underwent an MRI of her left lower extremity on July 01, 2024, the interpretation of which is pending at this time. The patient is to return for reevaluation in 1 week. Total time: 26 minutes
--- NOTE | 2024-07-04 09:31 | WC ---
PHOTO 07/03/24 [facility]
--- NOTE | 2024-07-04 09:32 | WC ---
PHOTO 07/03/24 TRINA PERRY
== END 2024-07-07 23:59 | disposition home or self-care (01) ==
LOC: WC 10:15
PROVIDERS: PCP Family Medicine Geriatric Medicine; Referring Provider Family Medicine Geriatric Medicine; Visit Provider Surgery
DX: L97.922 Non-pressure chronic ulcer of unspecified part of left lower leg with fat layer exposed (principal); L97.912 Non-pressure chronic ulcer of unspecified part of right lower leg with fat layer exposed; H26.9 Unspecified cataract; Z87.891 Personal history of nicotine dependence; M51.370 Other intervertebral disc degeneration, lumbosacral region with discogenic back pain only; Z90.710 Acquired absence of both cervix and uterus; Z98.1 Arthrodesis status; E03.9 Hypothyroidism, unspecified; M41.56 Other secondary scoliosis, lumbar region; Z87.19 Personal history of other diseases of the digestive system; Z90.89 Acquired absence of other organs; S81.801D Unspecified open wound, right lower leg, subsequent encounter
CPT/HCPCS: 11042; 87070; 87075; 87186; 87205; 93923

== ENCOUNTER 2024-08-06 14:45 | Outpatient (RCR) | payer MEDICARE, OTHER, SELFPAY ==
[2024-07-08 00:16] VITALS: BP 149/69; PULSE 66; RESP 16; TEMP 35.9; BMI 19.7
[2024-07-08 15:09] VITALS: BP 154/50; PULSE 63; RESP 16; TEMP 36.4; BMI 19.7
--- NOTE | 2024-07-12 09:26 | HP.PCM_ITS ---
History of Present Illness Date of Service: 07/08/24 Chief Complaint: Bilateral lower extremity traumatic wounds History of Wound: This is a 74-year-old female who presented with traumatic wounds to both lower extremities. The wounds were located on the pretibial surfaces bilaterally. The wound on the right pretibial surface occurred approximately 1 month prior to presentation, resulting when the patient bumped her leg against a trash bin. The wound had failed to heal appropriately. More recently, approximately 10 days prior to presentation, the patient dropped a box of spaghetti noodles onto the left pretibial surface, resulting in a wound which had failed to heal. The patient was seen by her primary care physician, Dr. Lundberg, 4 days prior to presentation, where a course of Keflex and doxycycline were initiated. The patient has completed her course of antibiotics. 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 The patient is mobile and active. She denies swelling in her legs. She sleeps on a flat surface at night. She denies a history of thrombophlebitis. The patient denies a history of congestive heart failure, myocardial infarction, diabetes mellitus, cerebrovascular accident, hypertension, renal disease, and pulmonary disease. She has a history of hypothyroidism. A limited venous duplex examination is noted to have been performed on October 26, 2022, examining only the right lower extremity, and revealing no evidence of thrombophlebitis. Valvular competence was not fully evaluated. [facility] Medical History Traumatic open wound of right lower leg Traumatic open wound of left lower leg Non-pressure chronic ulcer of left lower leg with fat layer exposed Non-pressure chronic ulcer of right lower leg with fat layer exposed Traumatic open wound of right lower leg with delayed healing Traumatic open wound of left lower leg with delayed healing Wears glasses Anxiety Alcohol use History of steroid therapy Easy bruising Back pain Injury of back Migraine headache Syncope History of IBS Former smoker Leg cramps History of edema History of stress test Cataracts, bilateral Arthritis Anemia Vitamin D deficiency, unspecified Hypothyroidism Home Medications ?Medication ?Instructions ?Recorded ?Last Taken ?Type lidocaine 5 % topical patch 2 patch topical DAILY 04/10 08/24 1 Day Ago History ~09/21/17 meloxicam 15 mg tablet 15 mg PO QDAY 05/03/1709/22 History doxepin 10 mg capsule 10 mg PO QHS 12/16/19 Unknow n History folic acid 400 mcg tablet 0.4 mg PO DAILY@0800 0 Unknown History linaclotide 145 mcg capsule 145 mcg PO DAILY 12/16/19 Unknown History estradiol 0.1 mg/24 hr semiweekly 2 patch transdermal MOTH 03/15/20 Unknown History transdermal patch (Bessie) acetaminophen 500 mg tablet 1,000 mg PO BID 01/06/22 U nknown History vitamin Q34-drbvyvl B1 100 mg-1 1 ml IM .QMO 01/06/22 Unknown History mg/mL intramuscular solution levothyroxine 50 mcg tablet 50 mcg PO DAILY 03/18/24 U nknown History gabapentin 100 mg capsule 100 mg PO BID 05/07/24 Unkno wn History loratadine 10 mg tablet 10 mg PO .prn 05/07/24 Unkno wn History sulfamethoxazole 800 1 tab PO Q12H #14 tabs 05/27 Unknown Rx mg-trimethoprim 160 mg tablet (Bactrim DS) cephalexin 500 mg capsule 500 mg PO 4X/DAY 07/08/24 Un known History doxycycline hyclate 100 mg tablet 100 mg PO BID Unknown History sulfamethoxazole 800 1 tab PO Q12H #14 tabs 07/08 Unknown Rx mg-trimethoprim 160 mg tablet (Bactrim DS) Allergy/AdvReac Type Severity Reaction Status Date / Time No Known Allergies Allergy Verified 05/07/24 11:09 Family History Mother Rheumatoid arthritis Father Pancreatic cancer Cancer Grandfather Myocardial infarction Grandmother Thyroid disorder Surgical History Status post spinal disc removal History of tonsillectomy History of lumbar spinal fusion History of total hip replacement History of hysterectomy History of cervical discectomy Social History household members: spouse Smoking Status: Never smoker alcohol intake: current alcohol intake frequency: a few times a week Alcohol type: wine substance use type: does not use what type of physical activity do you participate in: other details: physical therapy frequency: 1-2 times per week Vital Signs Vital Signs Vital Signs: Weight Weight: 101 lb Body Mass Index (BMI) 19.7 Physical Exam Const alert, oriented x3, no apparent distress, average body habitus and no limitations Constitutional Narrative: The patient's BMI is 19.7. She is of thin body habitus. General Appearance: cooperative, comfortable, well kempt and well developed Orientation / Consciousness: awake, oriented to person, oriented to place and oriented to time Exam Limitations: no limitations HEENT normocephalic, head/scalp atraumatic and hearing grossly normal bilaterally Head and Scalp: normal to inspection, normocephalic and atraumatic Face and Sinus: normal facial exam Nose: external nose normal External Ear: external ears normal Eyes EOMs intact bilaterally General Eye: normal appearance of both eyes Neck full ROM Resp normal respiratory effort, normal air movement, no retractions and no use of accessory muscles Effort and Inspection: able to speak in complete sentences Extremity no calf tenderness General Extremity: Negative for clubbing or cyanosis Skin Wound Narrative: The patient's lower extremities appear warm and well-perfused. Pedal pulses are easily palpable bilaterally. There is no significant swelling or edema in the patient's lower extremities. The wound on the right pretibial surface remains completely healed and epithelialized. A wound remains on the left pretibial surface. The wound is full-thickness in nature. There is moderate bioburden. Dimensions are documented elsewhere. The wound appears to have decreased in size slightly since the patient's last visit, with evidence of peripheral epithelialization. Dimensions are documented elsewhere. Wound margins are well beveled. A new traumatic wound is noted on the patient's left pretibial surface, superior to the original wound. It is full-thickness, extending through all layers of the dermis and into subcutaneous tissues. There is no sign of infection or cellulitis. Dimensions are documented elsewhere. There are no significant flaps, devitalized or otherwise. Hair: normal Neuro oriented x3, CN's II-XII intact bilaterally, moves all extremities, no focal motor deficits and no sensory deficits noted Sensorium / Orientation: awake, alert, oriented to person, oriented to place and oriented to time Speech: speech normal Psych Appearance: grossly normal and appropriate Attitude: calm Activity / Motor Behavior: appropriate eye contact Speech: normal speech Mood & Affect: euthymic mood Thought Process: normal thought process Thought Content: normal thought content Attention / Concentration: attention grossly intact Debridement Note Debridement Note Wound debrided: Left lower extremity pretibial wounds x 2 Laterality: Left Type of Debridement: Excisional debridement Anesthesia Used: 5% Lidocaine Gel and Cetacaine Depth: Down to and including healthy tissue and in the subcutaneous layer Percentage of wound debrided: 100 Instrument Used: 5mm curette Tissue Removed: Moderate amount of bioburden Severity: Fat Layer Exposed Amount of bleeding with debridement: Mild Bleeding Controlled with: Compression and gauze Patient tolerated procedure: Patient tolerated procedure well Post-Debridement Measurements and Additional Note: Post-Debridement Measurements/Treatment WC - Nurse 1 - General Ulcer Assessment Start: 07/08/24 15:08 Freq: Status: Active Protocol: QUIANA Activity Type Activity Date Activity User E-sign Co-sign Detail Recorded Client Recorded Date Recorded By Document 07/08/24 15:09 EMEKA [id number] 07/08/24 15:22 KW 07/08/24 15:09 WC - Today's Visit Information Type of service 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 ) Arrival Mode Ambulatory Patient Identification Verified (Name & Yes ) Height and Weight Body Mass Index (BMI) 19.7 BMI Classification Normal Vital Signs Temperature (97.8 F-99.1 F) 97.5 F L Temperature Source Temporal Pulse Rate (60-100) 63 Pulse Location Monitor Respiratory Rate (12-18) 16 Respiratory rate source Observation Oxygen Delivery Method Room Air Blood Pressure (90/60-120/80) 154/50 H Blood Pressure Mean 84 Source Monitor Position Semi-Fowlers Blood Pressure Location Right Arm History Since Last Visit- (Skip if this is Patient's initial visit) Have you changed medications since your No last visit? Any new allergies or adverse reactions No Had a fall/change in ADL's that may No increase risk of falls Signs or symptoms of abuse and/or No neglect since last visit Have you been in the hospital since your No last visit? Has dressing in place as prescribed Yes Has compression in place as prescribed N/A Has offloadiing in place as prescribed N/A Experienced any changes in pain level or No management Left Footwear Regular Shoe Right Footwear Regular Shoe Pain Scale: 0-10 Numeric Is Patient Pain Free? No LLE -Description Burning -Intensity 5 -Alleviating Factors/Interventions Medication, Inactivity/ Resting,Turning /Repositioning - Nurse 1 - General Ulcer Measurement Start: 07/08/24 15:08 Freq: Status: Active Protocol: Activity Type Activity Date Activity User E-sign Co-sign Detail Recorded Client Recorded Date Recorded By Document 07/08/24 15:09 KW [id number] 07/08/24 15:22 KW 07/08/24 15:09 Wound Center Nurse 1 #3 LLE INF -Current Size (cm) - Length 1.7 -Current Size (cm) - Width 1.5 -Current Size (cm) - Depth 0.1 -Total Square Cm 2.55 -Date of Last Picture (Recall this 07/08/24 field) -Exudate Amt Large -Exudate Type Yellow/Green -Wound Margin Distinct, Outline Attached -Granulation Amt Large (67-100%) -Granulation Quality [place] -Texture (Joyce-wound Skin Appearance) Assessed -Moisture (Joyce-wound Skin Appearance) Assessed, Maceration -Color (Joyce-wound Skin Appearance) Assessed, Hemosiderin Staining -Temperature (Joyce-wound Skin No Abnormality Appearance) (Pt Warm) -Tenderness on Palpation (Joyce-wound No Skin Appearance) -Ulcer Cleansing Soap and Water -Foul Odor after Cleansing No -Anesthetic Used 5% Lidocaine Gel 2. LLE ant -Current Size (cm) - Length 3.5 -Current Size (cm) - Width 1.6 -Current Size (cm) - Depth 0.1 -Total Square Cm 5.60 -Date of Last Picture (Recall this 07/08/24 field) -Exudate Amt Large -Exudate Type Serosanguineous -Wound Margin Distinct, Outline Attached -Granulation Amt Large (67-100%) -Granulation Quality Red -Necrosis Amt Small (1-33%) -Necrotic Tissue Type Adherent Slough -Texture (Joyce-wound Skin Appearance) Assessed -Moisture (Joyce-wound Skin Appearance) Assessed -Color (Joyce-wound Skin Appearance) Assessed, Hemosiderin Staining -Temperature (Joyce-wound Skin No Abnormality Appearance) (Pt Warm) -Tenderness on Palpation (Joyce-wound No Skin Appearance) -Ulcer Cleansing Soap and Water -Foul Odor after Cleansing No -Anesthetic Used 5% Lidocaine Gel Left Calf (cm) 28.2 Left Ankle (cm) 17.5 WC - Nurse 2 - General Ulcer CM Notes Start: 07/08/24 15:08 Freq: Status: Active Protocol: Activity Type Activity Date Activity User E-sign Co-sign Detail Recorded Client Recorded Date Recorded By Document 07/08/24 16:22 DS [id number] 07/08/24 16:28 DS 07/08/24 16:22 Wound Center Nurse 2 #3 LLE INF -Time 16:22 -Correct Patient Yes -Correct Side, Site, Position Yes -Correct Procedure Yes -Procedure Performed Yes -Type of Procedure Debridement -Clinical Debridement Subcutaneous -Tissue Removed Subcutaneous -Post Debridement (cm) - Length 1.5 -Post Debridement (cm) - Width 1.5 -Post Debridement (cm) - Depth 0.1 -Total Square (Post) (cm) 2.25 -Area of Debridement (cm) - Length 1.5 -Area of Debridement (cm) - Width 1.5 -Total Square (Area) (cm) 2.25 -Tunneling No -Undermining/Tunneling No -Circular Undermining No -Wound/Ulcer Outcome Not Healed -Ulcer Cleansing Rinsed/ Irrigated with Saline -Foul Odor after Cleansing No -Bioengineered Tissue No -Bleeding Controlled with Pressure -Treatment Response Procedure Tolerated Well -Debridement - Subq, 1st 20sq cm Yes 2. LLE ant -Time 16:22 -Correct Patient Yes -Correct Side, Site, Position Yes -Correct Procedure Yes -Procedure Performed Yes -Type of Procedure Debridement -Clinical Debridement Subcutaneous -Tissue Removed Subcutaneous -Post Debridement (cm) - Length 2.5 -Post Debridement (cm) - Width 1.1 -Post Debridement (cm) - Depth 0.2 -Total Square (Post) (cm) 2.75 -Area of Debridement (cm) - Length 2.5 -Area of Debridement (cm) - Width 1.1 -Total Square (Area) (cm) 2.75 -Tunneling No -Undermining/Tunneling No -Circular Undermining No -Wound/Ulcer Outcome Not Healed -Ulcer Cleansing Rinsed/ Irrigated with Saline -Foul Odor after Cleansing No -Bioengineered Tissue No -Bleeding Controlled with Pressure -Treatment Response Procedure Tolerated Well -Debridement - Subq, 1st 20sq cm No Pain Scale: 0-10 Numeric Is Patient Pain Free? No bilat LE -Description Throbbing, Aching -Intensity 8 -Duration (hours) Chronic -Pain Behavior Guarding, Withdrawal from Touch -Pain Aggravating Factors Debridement -Alleviating Factors/Interventions Will continue to monitor, Emotional Support WC - Nurse 3 - General Ulcer D/C NN Start: 07/08/24 15:08 Freq: Status: Active Protocol: Activity Type Activity Date Activity User E-sign Co-sign Detail Recorded Client Recorded Date Recorded By Document 07/08/24 16:32 KW [id number] 07/08/24 16:33 KW 07/08/24 16:32 Wound Care Center Nurse 3 #3 LLE INF -Primary Dressing Applied Promogran, Silicone Border Foam 4x4 -Promogran 1 -Silicone Border Foam 4x4 1 2. LLE ant -Primary Dressing Applied Silicone Border Foam 4x4 -Other Dressing PROMOGRAN -Silicone Border Foam 4x4 1 LLE -Compression Wrap Aron Wrap Pain Scale: 0-10 Numeric Is Patient Pain Free? Yes WC - Visit Discharge Discharge Condition Stable Ambulatory Status Ambulatory Transportation Private Auto Medication Reconcilliation completed & No provided to patient/care provider Clinical Summary of Care Provided Yes Charges/Coding Procedures Integumentary [id number]: [id number] [place] subq tissue 20 sq cm/< Assessment/Plan Assessment/Plan (1) Non-pressure chronic ulcer of left lower leg with fat layer exposed: CODE(S): L97.922 - Non-pressure chronic ulcer of unspecified part of left lower leg with fat layer exposed (2) Traumatic open wound of left lower leg: CODE(S): S81.802A - Unspecified open wound, left lower leg, initial encounter QUALIFIERS: Encounter type: subsequent encounter Qualified Code(s): S81.802D - Unspecified open wound, left lower leg, subsequent encounter (3) Traumatic open wound of right lower leg: CODE(S): S81.801A - Unspecified open wound, right lower leg, initial encounter QUALIFIERS: Encounter type: subsequent encounter Qualified Code(s): S81.801D - Unspecified open wound, right lower leg, subsequent encounter (4) Lumbar scoliosis: CODE(S): M41.9 - Scoliosis, unspecified QUALIFIERS: Scoliosis type: other secondary scoliosis Qualified Code(s): M41.56 - Other secondary scoliosis, lumbar region (5) Low back pain: CODE(S): M54.50 - Low back pain, unspecified (6) DDD (degenerative disc disease), lumbosacral: CODE(S): M51.37 - Other intervertebral disc degeneration, lumbosacral region (7) Hypothyroidism (acquired): CODE(S): E03.9 - Hypothyroidism, unspecified (8) Cataracts, bilateral: CODE(S): H26.9 - Unspecified cataract (9) History of tonsillectomy: CODE(S): Z90.89 - Acquired absence of other organs (10) History of IBS: CODE(S): Z87.19 - Personal history of other diseases of the digestive system (11) Former smoker: CODE(S): Z87.891 - Personal history of nicotine dependence (12) History of lumbar spinal fusion: CODE(S): Z98.1 - Arthrodesis status (13) History of hysterectomy: CODE(S): Z90.710 - Acquired absence of both cervix and uterus (14) History of cervical discectomy: CODE(S): Z98.890 - Other specified postprocedural states (15) History of total hip replacement: CODE(S): Z96.649 - Presence of unspecified artificial hip joint (16) Status post spinal disc removal: CODE(S): Z98.890 - Other specified postprocedural states PLAN: Plan This is a 74-year-old female who presented with traumatic wounds in both lower extremities. Although the patient does not relate significant swelling in her lower extremities, measures to prevent such swelling have been thoroughly discussed. The patient has been encouraged to elevate her lower extremities as much as possible. She has been advised to refrain from prolonged, idle sitting. Activity has been encouraged. The patient has been encouraged to optimize her nutritional intake. Her appetite is said to be recently depressed due to the recent loss of her . She has been provided samples of Frank, and encouraged to use a nutritional supplement on a daily basis until which time her appetite returns to normal. We are to continue the use of Promogran, which will be applied topically on a daily basis. The patient has been provided the product for use, and has been instructed in the appropriate means of application. Because of a failure to progress as expected, the patient's wound was swabbed for aerobic and anaerobic bacterial culture on July 03, 2024. Culture results were positive for very rare Staphylococcus epidermidis. Because of a lack of progress in wound healing, it has been intended to treat the patient with an oral antibiotic in accordance with the recent culture and sensitivity results. The use of Bactrim double strength had been planned. However, the patient's primary care physician, Dr. Lundberg, initiated oral antibiotic treatment empirically 4 days ago, with Keflex and doxycycline, based on the results of the recent MRI scan which indicated findings suggestive of cellulitis. Therefore, further antibiotic management will be deferred at this time, and the patient's clinical status will be monitored serially. The patient has a second wound on the left pretibial surface, superior to the original wound, which occurred due to trauma from her brother's wheelchair. We are to continue the use of Promogran topically to this wound as well. In addition to the Promogran, each of the wounds will be covered with [place] SAP. A noninvasive lower extremity arterial study was performed on June 13, 2024, the results of which revealed no evidence of significant arterial occlusive disease in the lower extremities. Laboratory studies have been recently obtained by the patient's primary care physician, the results of which have been reviewed. The patient is to return for reevaluation in 1 week. Total time: 25 minutes
[2024-07-15 15:05] VITALS: BP 152/47; PULSE 74; RESP 14; TEMP 35.7; BMI 19.7
--- NOTE | 2024-07-16 08:46 | WC ---
PHOTO 07/15/24 LEFT WEEKS INF/ANT
--- NOTE | 2024-07-17 11:33 | PCM.WC.HP ---
History of Present Illness Date of Service: 07/15/24 Chief Complaint: Bilateral lower extremity traumatic wounds History of Wound: This is a 74-year-old female who presented with traumatic wounds to both lower extremities. The wounds were located on the pretibial surfaces bilaterally. The wound on the right pretibial surface occurred approximately 1 month prior to presentation, resulting when the patient bumped her leg against a trash bin. The wound had failed to heal appropriately. More recently, approximately 10 days prior to presentation, the patient dropped a box of spaghetti noodles onto the left pretibial surface, resulting in a wound which had failed to heal. The patient was seen by her primary care physician, Dr. Lundberg, 4 days prior to presentation, where a course of Keflex and doxycycline were initiated. The patient has completed her course of antibiotics. 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 The patient is mobile and active. She denies swelling in her legs. She sleeps on a flat surface at night. She denies a history of thrombophlebitis. The patient denies a history of congestive heart failure, myocardial infarction, diabetes mellitus, cerebrovascular accident, hypertension, renal disease, and pulmonary disease. She has a history of hypothyroidism. A limited venous duplex examination is noted to have been performed on October 26, 2022, examining only the right lower extremity, and revealing no evidence of thrombophlebitis. Valvular competence was not fully evaluated. [facility] Medical History Traumatic open wound of right lower leg Traumatic open wound of left lower leg Non-pressure chronic ulcer of left lower leg with fat layer exposed Non-pressure chronic ulcer of right lower leg with fat layer exposed Traumatic open wound of right lower leg with delayed healing Traumatic open wound of left lower leg with delayed healing Wears glasses Anxiety Alcohol use History of steroid therapy Easy bruising Back pain Injury of back Migraine headache Syncope History of IBS Former smoker Leg cramps History of edema History of stress test Cataracts, bilateral Arthritis Anemia Vitamin D deficiency, unspecified Hypothyroidism Home Medications ?Medication ?Instructions ?Recorded ?Last Taken ?Type lidocaine 5 % topical patch 2 patch topical DAILY 05/03/17 1 Day Ago History ~09/21/17 meloxicam 15 mg tablet 15 mg PO QDAY 05/03/17 09/22/17 History doxepin 10 mg capsule 10 mg PO QHS 12/16/19 Unknown History folic acid 400 mcg tablet 0.4 mg PO DAILY@0800 12/16/19 Unknown History linaclotide 145 mcg capsule 145 mcg PO DAILY 12/16/19 Unknown History estradiol 0.1 mg/24 hr semiweekly 2 patch transdermal MOTH 03/15/20 Unknown History transdermal patch (Bessie) acetaminophen 500 mg tablet 1,000 mg PO BID 01/06/22 Unknown History vitamin [id number] B1 100 mg-1 1 ml IM .QMO 01/06/22 Unknown History mg/mL intramuscular solution levothyroxine 50 mcg tablet 50 mcg PO DAILY 03/18/24 Unknown History gabapentin 100 mg capsule 100 mg PO BID 05/07/24 Unknown History loratadine 10 mg tablet 10 mg PO .prn 05/07/24 Unknown History sulfamethoxazole 800 1 tab PO Q12H #14 tabs 05/27/24 Unknown Rx mg-trimethoprim 160 mg tablet (Bactrim DS) cephalexin 500 mg capsule 500 mg PO 4X/DAY 07/08/24 Unknown History doxycycline hyclate 100 mg tablet 100 mg PO BID 07/08/24 Unknown History sulfamethoxazole 800 1 tab PO Q12H #14 tabs 07/08/24 Unknown Rx mg-trimethoprim 160 mg tablet (Bactrim DS) Allergy/AdvReac Type Severity Reaction Status Date / Time No Known Allergies Allergy Verified 05/07/24 11:09 Family History Mother Rheumatoid arthritis Father Pancreatic cancer Cancer Grandfather Myocardial infarction Grandmother Thyroid disorder Surgical History Status post spinal disc removal History of tonsillectomy History of lumbar spinal fusion History of total hip replacement History of hysterectomy History of cervical discectomy Social History household members: spouse Smoking Status: Never smoker alcohol intake: current alcohol intake frequency: a few times a week Alcohol type: wine substance use type: does not use what type of physical activity do you participate in: other details: physical therapy frequency: 1-2 times per week Vital Signs Vital Signs Vital Signs: Weight Weight: 101 lb Body Mass Index (BMI) 19.7 Physical Exam Const alert, oriented x3, no apparent distress, average body habitus and no limitations Constitutional Narrative: The patient's BMI is 19.7. She is of thin body habitus. General Appearance: cooperative, comfortable, well kempt and well developed Orientation / Consciousness: awake, oriented to person, oriented to place and oriented to time Exam Limitations: no limitations HEENT normocephalic, head/scalp atraumatic and hearing grossly normal bilaterally Head and Scalp: normal to inspection, normocephalic and atraumatic Face and Sinus: normal facial exam Nose: external nose normal External Ear: external ears normal Eyes EOMs intact bilaterally General Eye: normal appearance of both eyes Neck full ROM Resp normal respiratory effort, normal air movement, no retractions and no use of accessory muscles Effort and Inspection: able to speak in complete sentences Extremity no calf tenderness General Extremity: Negative for clubbing or cyanosis Skin Wound Narrative: The patient's lower extremities appear warm and well-perfused. Pedal pulses are easily palpable bilaterally. There is no significant swelling or edema in the patient's lower extremities. The wound on the right pretibial surface remains completely healed and epithelialized. A wound remains on the left pretibial surface. The wound is full-thickness in nature. There is moderate bioburden. Dimensions are documented elsewhere. The wound appears to have decreased in size slightly since the patient's last visit, with evidence of peripheral epithelialization. Dimensions are documented elsewhere. Wound margins are well beveled. A recent traumatic wound is noted on the patient's left pretibial surface, superior to the original wound. It is full-thickness, extending through all layers of the dermis and into subcutaneous tissues. There is no sign of infection or cellulitis. Dimensions are documented elsewhere. It has decreased in size since the patient's previous visit. There are no significant flaps, devitalized or otherwise. No undermining is noted. Hair: normal Neuro oriented x3, CN's II-XII intact bilaterally, moves all extremities, no focal motor deficits and no sensory deficits noted Sensorium / Orientation: awake, alert, oriented to person, oriented to place and oriented to time Speech: speech normal Psych Appearance: grossly normal and appropriate Attitude: calm Activity / Motor Behavior: appropriate eye contact Speech: normal speech Mood & Affect: euthymic mood Thought Process: normal thought process Thought Content: normal thought content Attention / Concentration: attention grossly intact Debridement Note Debridement Note Wound debrided: Left lower extremity pretibial wounds x 2 Laterality: Left Type of Debridement: Excisional debridement Anesthesia Used: 5% Lidocaine Gel and Cetacaine Depth: Down to and including healthy tissue and in the subcutaneous layer Percentage of wound debrided: 100 Instrument Used: 5mm curette Tissue Removed: Moderate amount of bioburden Severity: Fat Layer Exposed Amount of bleeding with debridement: Mild Bleeding Controlled with: Compression and gauze Patient tolerated procedure: Patient tolerated procedure well Post-Debridement Measurements and Additional Note: Post-Debridement Measurements/Treatment - Nurse 1 - General Ulcer Assessment Start: 07/08/24 15:08 Freq: Status: Active Protocol: QUIANA Activity Type Activity Date Activity User E-sign Co-sign Detail Recorded Client Recorded Date Recorded By Document 07/08/24 15:09 KW [id number] 07/08/24 15:22 KW Document 07/15/24 15:05 ML [id number] 07/15/24 15:08 ML 07/08/24 07/15/24 15:09 15:05 - Today's Visit Information Type of service Follow-up Visit Follow-up Visit (Physician/MODEL AND DYE PERSON (Physician/MODEL AND DYE PERSON ) ) Arrival Mode Ambulatory Ambulatory Transfer Assistance None Patient Identification Verified (Name & Yes Yes ) Patient Requires Transmission-Based No Precautions Height and Weight Body Mass Index (BMI) 19.7 19.7 BMI Classification Normal Normal Vital Signs Temperature (97.8 F-99.1 F) 97.5 F L 96.2 F L Temperature Source Temporal Temporal Pulse Rate (60-100) 63 74 Pulse Location Monitor Monitor Respiratory Rate (12-18) 16 14 Respiratory rate source Observation Observation Oxygen Delivery Method Room Air Blood Pressure (90/60-120/80) 154/50 H 152/47 H Blood Pressure Mean 84 82 Source Monitor Monitor Position Semi-Fowlers Sitting Blood Pressure Location Right Arm Right Arm History Since Last Visit- (Skip if this is Patient's initial visit) Have you changed medications since your No No last visit? Any new allergies or adverse reactions No No Had a fall/change in ADL's that may No No increase risk of falls Signs or symptoms of abuse and/or No No neglect since last visit Have you been in the hospital since your No No last visit? Has dressing in place as prescribed Yes Yes Has compression in place as prescribed N/A N/A Has offloadiing in place as prescribed N/A N/A Experienced any changes in pain level or No No management Left Footwear Regular Shoe Right Footwear Regular Shoe Pain Scale: 0-10 Numeric Is Patient Pain Free? No Yes LLE -Description Burning -Intensity 5 -Alleviating Factors/Interventions Medication, Inactivity/ Resting,Turning /Repositioning WC - Nurse 1 - General Ulcer Measurement Start: 07/08/24 15:08 Freq: Status: Active Protocol: Activity Type Activity Date Activity User E-sign Co-sign Detail Recorded Client Recorded Date Recorded By Document 07/08/24 15:09 KW [id number] 07/08/24 15:22 KW Document 07/15/24 15:05 ML [id number] 07/15/24 15:08 ML 07/08/24 07/15/24 15:09 15:05 Wound Center Nurse 1 #3 LLE INF -Current Size (cm) - Length 1.7 2.5 -Current Size (cm) - Width 1.5 0.5 -Current Size (cm) - Depth 0.1 0.1 -Total Square Cm 2.55 1.25 -Date of Last Picture (Recall this 07/08/24 field) -Exudate Amt Large Medium -Exudate Type Yellow/Green Serous -Wound Margin Distinct, Distinct, Outline Outline Attached Attached -Granulation Amt Large (67-100%) Medium (34-66%) -Granulation Quality [place] -Slough/Fibrin Yes -Necrosis Amt Small (1-33%) -Necrotic Tissue Type Adherent Slough -Texture (Joyce-wound Skin Appearance) Assessed Assessed -Moisture (Joyce-wound Skin Appearance) Assessed, Assessed Maceration -Color (Joyce-wound Skin Appearance) Assessed, Assessed Hemosiderin Staining -Temperature (Joyce-wound Skin No Abnormality No Abnormality Appearance) (Pt Warm) (Pt Warm) -Tenderness on Palpation (Joyce-wound No No Skin Appearance) -Ulcer Cleansing Soap and Water Soap and Water -Foul Odor after Cleansing No No -Anesthetic Used 5% Lidocaine 5% Lidocaine Gel Gel 2. LLE ant -Current Size (cm) - Length 3.5 2 -Current Size (cm) - Width 1.6 1.5 -Current Size (cm) - Depth 0.1 0.1 -Total Square Cm 5.60 3.0 -Date of Last Picture (Recall this 07/08/24 field) -Exudate Amt Large Small -Exudate Type Serosanguineous Serosanguineous -Wound Margin Distinct, Outline Attached -Granulation Amt Large (67-100%) Medium (34-66%) -Granulation Quality Red -Necrosis Amt Small (1-33%) Medium (34-66%) -Necrotic Tissue Type Adherent Slough Adherent Slough -Texture (Joyce-wound Skin Appearance) Assessed Assessed -Moisture (Joyce-wound Skin Appearance) Assessed Assessed -Color (Joyce-wound Skin Appearance) Assessed, Assessed Hemosiderin Staining -Temperature (Joyce-wound Skin No Abnormality No Abnormality Appearance) (Pt Warm) (Pt Warm) -Tenderness on Palpation (Joyce-wound No No Skin Appearance) -Ulcer Cleansing Soap and Water Soap and Water -Foul Odor after Cleansing No No -Anesthetic Used 5% Lidocaine 5% Lidocaine Gel Gel Left Calf (cm) 28.2 Left Ankle (cm) 17.5 WC - Nurse 2 - General Ulcer CM Notes Start: 07/08/24 15:08 Freq: Status: Active Protocol: Activity Type Activity Date Activity User E-sign Co-sign Detail Recorded Client Recorded Date Recorded By Document 07/08/24 16:22 DS [id number] 07/08/24 16:28 DS Document 07/15/24 15:32 DS [id number] 07/15/24 15:39 DS 07/08/24 07/15/24 16:22 15:32 Wound Center Nurse 2 #3 LLE INF -Time 16:22 15:32 -Correct Patient Yes Yes -Correct Side, Site, Position Yes Yes -Correct Procedure Yes Yes -Procedure Performed Yes Yes -Type of Procedure Debridement Debridement -Clinical Debridement Subcutaneous Subcutaneous -Tissue Removed Subcutaneous Subcutaneous -Post Debridement (cm) - Length 1.5 1.3 -Post Debridement (cm) - Width 1.5 1.4 -Post Debridement (cm) - Depth 0.1 0.1 -Total Square (Post) (cm) 2.25 1.82 -Area of Debridement (cm) - Length 1.5 1.3 -Area of Debridement (cm) - Width 1.5 1.4 -Total Square (Area) (cm) 2.25 1.82 -Tunneling No No -Undermining/Tunneling No No -Circular Undermining No No -Wound/Ulcer Outcome Not Healed Not Healed -Ulcer Cleansing Rinsed/ Rinsed/ Irrigated with Irrigated with Saline Saline -Foul Odor after Cleansing No No -Bioengineered Tissue No No -Bleeding Controlled with Pressure Pressure -Treatment Response Procedure Procedure Tolerated Well Tolerated Well -Offloading No -Debridement - Subq, 1st 20sq cm Yes Yes 2. LLE ant -Time 16:22 15:32 -Correct Patient Yes Yes -Correct Side, Site, Position Yes Yes -Correct Procedure Yes Yes -Procedure Performed Yes Yes -Type of Procedure Debridement Debridement -Clinical Debridement Subcutaneous Subcutaneous -Tissue Removed Subcutaneous Subcutaneous -Post Debridement (cm) - Length 2.5 2.0 -Post Debridement (cm) - Width 1.1 1.3 -Post Debridement (cm) - Depth 0.2 0.1 -Total Square (Post) (cm) 2.75 2.60 -Area of Debridement (cm) - Length 2.5 2.0 -Area of Debridement (cm) - Width 1.1 1.3 -Total Square (Area) (cm) 2.75 2.60 -Tunneling No No -Undermining/Tunneling No No -Circular Undermining No No -Wound/Ulcer Outcome Not Healed Not Healed -Ulcer Cleansing Rinsed/ Rinsed/ Irrigated with Irrigated with Saline Saline -Foul Odor after Cleansing No No -Bioengineered Tissue No No -Bleeding Controlled with Pressure Pressure -Treatment Response Procedure Procedure Tolerated Well Tolerated Well -Offloading No -Debridement - Subq, 1st 20sq cm No No Pain Scale: 0-10 Numeric Is Patient Pain Free? No Yes bilat LE -Description Throbbing, Aching -Intensity 8 -Duration (hours) Chronic -Pain Behavior Guarding, Withdrawal from Touch -Pain Aggravating Factors Debridement -Alleviating Factors/Interventions Will continue to monitor, Emotional Support - Nurse 3 - General Ulcer D/C NN Start: 07/08/24 15:08 Freq: Status: Active Protocol: Activity Type Activity Date Activity User E-sign Co-sign Detail Recorded Client Recorded Date Recorded By Document 07/08/24 16:32 KW [id number] 07/08/24 16:33 KW Document 07/15/24 15:57 RB [id number] 07/15/24 15:58 RB 07/08/24 07/15/24 16:32 15:57 Wound Care Center Nurse 3 #3 LLE INF -Ulcer Cleansing Rinsed/ Irrigated with Saline -Primary Dressing Applied Promogran, Promogran, Silicone Border Silicone Border Foam 4x4 Foam 4x4 -Promogran 1 1 -Silicone Border Foam 4x4 1 1 2. LLE ant -Primary Dressing Applied Silicone Border Silicone Border Foam 4x4 Foam 4x4 -Other Dressing PROMOGRAN promogran -Silicone Border Foam 4x4 1 1 LLE -Compression Wrap Aron Wrap Treatment Response Procedure Tolerated Well Pain Scale: 0-10 Numeric Is Patient Pain Free? Yes Yes WC - Visit Discharge Discharge Condition Stable Stable Ambulatory Status Ambulatory Ambulatory Transportation Private Auto Private Auto Medication Reconcilliation completed & No No provided to patient/care provider Clinical Summary of Care Provided Yes Yes Charges/Coding Procedures Integumentary [id number]: [address] [place] subq tissue 20 sq cm/< Assessment/Plan Assessment/Plan (1) Non-pressure chronic ulcer of left lower leg with fat layer exposed: CODE(S): L97.922 - Non-pressure chronic ulcer of unspecified part of left lower leg with fat layer exposed (2) Traumatic open wound of left lower leg: CODE(S): S81.802A - Unspecified open wound, left lower leg, initial encounter QUALIFIERS: Encounter type: subsequent encounter Qualified Code(s): S81.802D - Unspecified open wound, left lower leg, subsequent encounter (3) Traumatic open wound of right lower leg: CODE(S): S81.801A - Unspecified open wound, right lower leg, initial encounter QUALIFIERS: Encounter type: subsequent encounter Qualified Code(s): S81.801D - Unspecified open wound, right lower leg, subsequent encounter (4) Lumbar scoliosis: CODE(S): M41.9 - Scoliosis, unspecified QUALIFIERS: Scoliosis type: other secondary scoliosis Qualified Code(s): M41.56 - Other secondary scoliosis, lumbar region (5) Low back pain: CODE(S): M54.50 - Low back pain, unspecified (6) DDD (degenerative disc disease), lumbosacral: CODE(S): M51.37 - Other intervertebral disc degeneration, lumbosacral region (7) Hypothyroidism (acquired): CODE(S): E03.9 - Hypothyroidism, unspecified (8) Cataracts, bilateral: CODE(S): H26.9 - Unspecified cataract (9) History of tonsillectomy: CODE(S): Z90.89 - Acquired absence of other organs (10) History of IBS: CODE(S): Z87.19 - Personal history of other diseases of the digestive system (11) Former smoker: CODE(S): Z87.891 - Personal history of nicotine dependence (12) History of lumbar spinal fusion: CODE(S): Z98.1 - Arthrodesis status (13) History of hysterectomy: CODE(S): Z90.710 - Acquired absence of both cervix and uterus (14) History of cervical discectomy: CODE(S): Z98.890 - Other specified postprocedural states (15) History of total hip replacement: CODE(S): Z96.649 - Presence of unspecified artificial hip joint (16) Status post spinal disc removal: CODE(S): Z98.890 - Other specified postprocedural states PLAN: Plan This is a 74-year-old female who presented with traumatic wounds in both lower extremities. Although the patient does not relate significant swelling in her lower extremities, measures to prevent such swelling have been thoroughly discussed. The patient has been encouraged to elevate her lower extremities as much as possible. She has been advised to refrain from prolonged, idle sitting. Activity has been encouraged. The patient has been encouraged to optimize her nutritional intake. Her appetite is said to be recently depressed due to the recent loss of her . She has been provided samples of Frank, and encouraged to use a nutritional supplement on a daily basis until which time her appetite returns to normal. We are to continue the use of Promogran, which will be applied topically on a daily basis. The patient has been provided the product for use, and has been instructed in the appropriate means of application. Because of a failure to progress as expected, the patient's wound was swabbed for aerobic and anaerobic bacterial culture on July 03, 2024. Culture results were positive for very rare Staphylococcus epidermidis. Because of a lack of progress in wound healing, it had been intended to treat the patient with an oral antibiotic in accordance with the recent culture and sensitivity results. The use of Bactrim double strength had been planned. However, the patient's primary care physician, Dr. Lundberg, initiated oral antibiotic treatment empirically with Keflex and doxycycline, based on the results of the recent MRI scan which indicated findings suggestive of cellulitis. Therefore, further antibiotic management was deferred, with the intent to monitor the patient's clinical status serially. Thus, at the patient's next visit, if significant improvement is not noted, consideration will be given to reculturing her wounds. The second wound on the patient's left pretibial surface, superior to the original wound, occurred as a result of trauma from her brother's wheelchair. We are to continue the use of Promogran topically to this wound as well. In addition to the Promogran, each of the wounds will be covered with [place] SAP. A noninvasive lower extremity arterial study was performed on June 13, 2024, the results of which revealed no evidence of significant arterial occlusive disease in the lower extremities. Laboratory studies have been recently obtained by the patient's primary care physician, the results of which have been reviewed. The patient is to return for reevaluation in 1 week. Total time: 24 minutes
[2024-07-23 15:01] VITALS: BP 133/70; PULSE 70; RESP 14; BMI 19.7
--- NOTE | 2024-07-24 15:38 | PCM.WC.HP ---
History of Present Illness Date of Service: 07/23/24 Chief Complaint: Bilateral lower extremity traumatic wounds History of Wound: This is a 74-year-old female who presented with traumatic wounds to both lower extremities. The wounds were located on the pretibial surfaces bilaterally. The wound on the right pretibial surface occurred approximately 1 month prior to presentation, resulting when the patient bumped her leg against a trash bin. The wound had failed to heal appropriately. More recently, approximately 10 days prior to presentation, the patient dropped a box of spaghetti noodles onto the left pretibial surface, resulting in a wound which had failed to heal. The patient was seen by her primary care physician, Dr. Lundberg, 4 days prior to presentation, where a course of Keflex and doxycycline were initiated. The patient has completed her course of antibiotics. 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 The patient is mobile and active. She denies swelling in her legs. She sleeps on a flat surface at night. She denies a history of thrombophlebitis. The patient denies a history of congestive heart failure, myocardial infarction, diabetes mellitus, cerebrovascular accident, hypertension, renal disease, and pulmonary disease. She has a history of hypothyroidism. A limited venous duplex examination is noted to have been performed on October 26, 2022, examining only the right lower extremity, and revealing no evidence of thrombophlebitis. Valvular competence was not fully evaluated. [facility] Medical History Traumatic open wound of right lower leg Traumatic open wound of left lower leg Non-pressure chronic ulcer of left lower leg with fat layer exposed Non-pressure chronic ulcer of right lower leg with fat layer exposed Traumatic open wound of right lower leg with delayed healing Traumatic open wound of left lower leg with delayed healing Wears glasses Anxiety Alcohol use History of steroid therapy Easy bruising Back pain Injury of back Migraine headache Syncope History of IBS Former smoker Leg cramps History of edema History of stress test Cataracts, bilateral Arthritis Anemia Vitamin D deficiency, unspecified Hypothyroidism Home Medications ?Medication ?Instructions ?Recorded ?Last Taken ?Type lidocaine 5 % topical patch 2 patch topical DAILY 05/03/17 1 Day Ago History ~09/21/17 meloxicam 15 mg tablet 15 mg PO QDAY 05/03/17 09/22/17 History doxepin 10 mg capsule 10 mg PO QHS 12/16/19 Unknown History folic acid 400 mcg tablet 0.4 mg PO DAILY@0800 12/16/19 Unknown History linaclotide 145 mcg capsule 145 mcg PO DAILY 12/16/19 Unknown History estradiol 0.1 mg/24 hr semiweekly 2 patch transdermal MOTH 03/15/20 Unknown History transdermal patch (Bessie) acetaminophen 500 mg tablet 1,000 mg PO BID 01/06/22 Unknown History vitamin [id number] B1 100 mg-1 1 ml IM .QMO 01/06/22 Unknown History mg/mL intramuscular solution levothyroxine 50 mcg tablet 50 mcg PO DAILY 03/18/24 Unknown History gabapentin 100 mg capsule 100 mg PO BID 05/07/24 Unknown History loratadine 10 mg tablet 10 mg PO .prn 05/07/24 Unknown History sulfamethoxazole 800 1 tab PO Q12H #14 tabs 05/27/24 Unknown Rx mg-trimethoprim 160 mg tablet (Bactrim DS) cephalexin 500 mg capsule 500 mg PO 4X/DAY 07/08/24 Unknown History doxycycline hyclate 100 mg tablet 100 mg PO BID 07/08/24 Unknown History sulfamethoxazole 800 1 tab PO Q12H #14 tabs 07/08/24 Unknown Rx mg-trimethoprim 160 mg tablet (Bactrim DS) Allergy/AdvReac Type Severity Reaction Status Date / Time No Known Allergies Allergy Verified 05/07/24 11:09 Family History Mother Rheumatoid arthritis Father Pancreatic cancer Cancer Grandfather Myocardial infarction Grandmother Thyroid disorder Surgical History Status post spinal disc removal History of tonsillectomy History of lumbar spinal fusion History of total hip replacement History of hysterectomy History of cervical discectomy Social History household members: spouse Smoking Status: Never smoker alcohol intake: current alcohol intake frequency: a few times a week Alcohol type: wine substance use type: does not use what type of physical activity do you participate in: other details: physical therapy frequency: 1-2 times per week Vital Signs Vital Signs Vital Signs: Weight Weight: 101 lb Body Mass Index (BMI) 19.7 Physical Exam Const alert, oriented x3, no apparent distress, average body habitus and no limitations Constitutional Narrative: The patient's BMI is 19.7. She is of thin body habitus. General Appearance: cooperative, comfortable, well kempt and well developed Orientation / Consciousness: awake, oriented to person, oriented to place and oriented to time Exam Limitations: no limitations HEENT normocephalic, head/scalp atraumatic and hearing grossly normal bilaterally Head and Scalp: normal to inspection, normocephalic and atraumatic Face and Sinus: normal facial exam Nose: external nose normal External Ear: external ears normal Eyes EOMs intact bilaterally General Eye: normal appearance of both eyes Neck full ROM Resp normal respiratory effort, normal air movement, no retractions and no use of accessory muscles Effort and Inspection: able to speak in complete sentences Extremity no calf tenderness General Extremity: Negative for clubbing or cyanosis Skin Wound Narrative: The patient's lower extremities appear warm and well-perfused. Pedal pulses are easily palpable bilaterally. There is no significant swelling or edema in the patient's lower extremities. The wound on the right pretibial surface remains completely healed and epithelialized. Wounds remain on the left pretibial surface. The primary wound is full-thickness in nature. There is moderate bioburden. Dimensions are documented elsewhere. The wound appears to have decreased in size slightly since the patient's last visit, with evidence of peripheral epithelialization. Dimensions are documented elsewhere. Wound margins are well beveled. A recent traumatic wound is noted on the patient's left pretibial surface, superior to the original wound. It is full-thickness, extending through all layers of the dermis and into subcutaneous tissues. There is no sign of infection or cellulitis. Dimensions are documented elsewhere. It has decreased in size since the patient's previous visit. There are no significant flaps, devitalized or otherwise. No undermining is noted. Hair: normal Neuro oriented x3, CN's II-XII intact bilaterally, moves all extremities, no focal motor deficits and no sensory deficits noted Sensorium / Orientation: awake, alert, oriented to person, oriented to place and oriented to time Speech: speech normal Psych Appearance: grossly normal and appropriate Attitude: calm Activity / Motor Behavior: appropriate eye contact Speech: normal speech Mood & Affect: euthymic mood Thought Process: normal thought process Thought Content: normal thought content Attention / Concentration: attention grossly intact Debridement Note Debridement Note Wound debrided: Left lower extremity pretibial wound (superior/medial) Laterality: Left Type of Debridement: Excisional debridement Anesthesia Used: 5% Lidocaine Gel and Cetacaine Depth: Down to and including healthy tissue and in the subcutaneous layer Percentage of wound debrided: 100 Instrument Used: 3mm curette Tissue Removed: Small amount of bioburden Severity: Fat Layer Exposed Amount of bleeding with debridement: Mild Bleeding Controlled with: Compression and gauze Patient tolerated procedure: Patient tolerated procedure well Post-Debridement Measurements and Additional Note: Post-Debridement Measurements/Treatment - Nurse 1 - General Ulcer Assessment Start: 07/08/24 15:08 Freq: Status: Active Protocol: QUIANA Activity Type Activity Date Activity User E-sign Co-sign Detail Recorded Client Recorded Date Recorded By Document 07/08/24 15:09 KW [id number] 07/08/24 15:22 KW Document 07/15/24 15:05 ML [id number] 07/15/24 15:08 ML Document 07/23/24 15:01 ML [id number] 07/23/24 15:06 ML 07/08/24 07/15/24 07/23/24 15:09 15:05 15:01 - Today's Visit Information Type of service Follow-up Visit Follow-up Visit Follow-up Visit (Physician/DEHYDRATOR OPERATOR (Physician/DEHYDRATOR OPERATOR (Physician/DEHYDRATOR OPERATOR ) ) ) Arrival Mode Ambulatory Ambulatory Ambulatory Transfer Assistance None None Patient Identification Verified (Name & Yes Yes Yes ) Patient Requires Transmission-Based No No Precautions Height and Weight Body Mass Index (BMI) 19.7 19.7 19.7 BMI Classification Normal Normal Normal Vital Signs Temperature (97.8 F-99.1 F) 97.5 F L 96.2 F L Temperature Source Temporal Temporal Pulse Rate (60-100) 63 74 70 Pulse Location Monitor Monitor Monitor Respiratory Rate (12-18) 16 14 14 Respiratory rate source Observation Observation Observation Oxygen Delivery Method Room Air Blood Pressure (90/60-120/80) 154/50 H 152/47 H 133/70 H Blood Pressure Mean 84 82 91 Source Monitor Monitor Monitor Position Semi-Fowlers Sitting Sitting Blood Pressure Location Right Arm Right Arm Right Arm History Since Last Visit- (Skip if this is Patient's initial visit) Have you changed medications since your No No No last visit? Any new allergies or adverse reactions No No No Had a fall/change in ADL's that may No No No increase risk of falls Signs or symptoms of abuse and/or No No No neglect since last visit Have you been in the hospital since your No No No last visit? Has dressing in place as prescribed Yes Yes Yes Has compression in place as prescribed N/A N/A N/A Has offloadiing in place as prescribed N/A N/A N/A Experienced any changes in pain level or No No No management Left Footwear Regular Shoe Right Footwear Regular Shoe Pain Scale: 0-10 Numeric Is Patient Pain Free? No Yes Yes LLE -Description Burning -Intensity 5 -Alleviating Factors/Interventions Medication, Inactivity/ Resting,Turning /Repositioning WC - Nurse 1 - General Ulcer Measurement Start: 07/08/24 15:08 Freq: Status: Active Protocol: Activity Type Activity Date Activity User E-sign Co-sign Detail Recorded Client Recorded Date Recorded By Document 07/08/24 15:09 KW [id number] 07/08/24 15:22 KW Document 07/15/24 15:05 ML [id number] 07/15/24 15:08 ML Document 07/23/24 15:01 ML [id number] 07/23/24 15:06 ML 07/08/24 07/15/24 07/23/24 15:09 15:05 15:01 Wound Center Nurse 1 #3 LLE INF -Current Size (cm) - Length 1.7 2.5 1.2 -Current Size (cm) - Width 1.5 0.5 0.5 -Current Size (cm) - Depth 0.1 0.1 0.1 -Total Square Cm 2.55 1.25 0.60 -Date of Last Picture (Recall this 07/08/24 field) -Exudate Amt Large Medium Medium -Exudate Type Yellow/Green Serous Serous -Wound Margin Distinct, Distinct, Distinct, Outline Outline Outline Attached Attached Attached -Granulation Amt Large (67-100%) Medium (34-66%) -Granulation Quality [place] -Slough/Fibrin Yes Yes -Necrosis Amt Small (1-33%) Small (1-33%) -Necrotic Tissue Type Adherent Slough Adherent Slough -Texture (Joyce-wound Skin Appearance) Assessed Assessed Assessed -Moisture (Joyce-wound Skin Appearance) Assessed, Assessed Assessed, Maceration Maceration -Color (Joyce-wound Skin Appearance) Assessed, Assessed Assessed Hemosiderin Staining -Temperature (Joyce-wound Skin No Abnormality No Abnormality Appearance) (Pt Warm) (Pt Warm) -Tenderness on Palpation (Joyce-wound No No Skin Appearance) -Ulcer Cleansing Soap and Water Soap and Water Rinsed/ Irrigated with Saline -Foul Odor after Cleansing No No No -Anesthetic Used 5% Lidocaine 5% Lidocaine 5% Lidocaine Gel Gel Gel 2. LLE ant -Current Size (cm) - Length 3.5 2 0.1 -Current Size (cm) - Width 1.6 1.5 0.1 -Current Size (cm) - Depth 0.1 0.1 0.1 -Total Square Cm 5.60 3.0 0.01 -Date of Last Picture (Recall this 07/08/24 field) -Exudate Amt Large Small Small -Exudate Type Serosanguineous Serosanguineous Serous -Wound Margin Distinct, Distinct, Outline Outline Attached Attached -Granulation Amt Large (67-100%) Medium (34-66%) Small (1-33%) -Granulation Quality Red -Necrosis Amt Small (1-33%) Medium (34-66%) Small (1-33%) -Necrotic Tissue Type Adherent Slough Adherent Slough Adherent Slough -Texture (Joyce-wound Skin Appearance) Assessed Assessed Assessed -Moisture (Joyce-wound Skin Appearance) Assessed Assessed Assessed -Color (Joyce-wound Skin Appearance) Assessed, Assessed Assessed Hemosiderin Staining -Temperature (Joyce-wound Skin No Abnormality No Abnormality No Abnormality Appearance) (Pt Warm) (Pt Warm) (Pt Warm) -Tenderness on Palpation (Joyce-wound No No Yes Skin Appearance) -Ulcer Cleansing Soap and Water Soap and Water Rinsed/ Irrigated with Saline -Foul Odor after Cleansing No No No -Anesthetic Used 5% Lidocaine 5% Lidocaine 5% Lidocaine Gel Gel Gel Left Calf (cm) 28.2 Left Ankle (cm) 17.5 WC - Nurse 2 - General Ulcer CM Notes Start: 07/08/24 15:08 Freq: Status: Active Protocol: Activity Type Activity Date Activity User E-sign Co-sign Detail Recorded Client Recorded Date Recorded By Document 07/08/24 16:22 DS [id number] 07/08/24 16:28 DS Document 07/15/24 15:32 DS [id number] 07/15/24 15:39 DS Document 07/23/24 15:21 DS [id number] 07/23/24 15:25 DS 07/08/24 07/15/24 07/23/24 16:22 15:32 15:21 Wound Center Nurse 2 #3 LLE INF -Time 16: 15:32 15:21 -Correct Patient Yes Yes Yes -Correct Side, Site, Position Yes Yes Yes -Correct Procedure Yes Yes Yes -Procedure Performed Yes Yes Yes -Type of Procedure Debridement Debridement Debridement -Clinical Debridement Subcutaneous Subcutaneous Subcutaneous -Tissue Removed Subcutaneous Subcutaneous Subcutaneous -Post Debridement (cm) - Length 1.5 1.3 1.8 -Post Debridement (cm) - Width 1.5 1.4 0.8 -Post Debridement (cm) - Depth 0.1 0.1 0.1 -Total Square (Post) (cm) 2.25 1.82 1.44 -Area of Debridement (cm) - Length 1.5 1.3 1.8 -Area of Debridement (cm) - Width 1.5 1.4 0.8 -Total Square (Area) (cm) 2.25 1.82 1.44 -Tunneling No No No -Undermining/Tunneling No No No -Circular Undermining No No No -Wound/Ulcer Outcome Not Healed Not Healed Not Healed -Ulcer Cleansing Rinsed/ Rinsed/ Rinsed/ Irrigated with Irrigated with Irrigated with Saline Saline Saline -Foul Odor after Cleansing No No No -Bioengineered Tissue No No No -Bleeding Controlled with Pressure Pressure Pressure -Treatment Response Procedure Procedure Procedure Tolerated Well Tolerated Well Tolerated Well -Offloading No -Debridement - Subq, 1st 20sq cm Yes Yes Yes 2. LLE ant -Time 16: 15:32 15:21 -Correct Patient Yes Yes Yes -Correct Side, Site, Position Yes Yes Yes -Correct Procedure Yes Yes -Procedure Performed Yes Yes No -Type of Procedure Debridement Debridement -Clinical Debridement Subcutaneous Subcutaneous -Tissue Removed Subcutaneous Subcutaneous -Post Debridement (cm) - Length 2.5 2.0 1.5 -Post Debridement (cm) - Width 1.1 1.3 1.4 -Post Debridement (cm) - Depth 0.2 0.1 0.1 -Total Square (Post) (cm) 2.75 2.60 2.10 -Area of Debridement (cm) - Length 2.5 2.0 1.5 -Area of Debridement (cm) - Width 1.1 1.3 1.4 -Total Square (Area) (cm) 2.75 2.60 2.10 -Tunneling No No No -Undermining/Tunneling No No No -Circular Undermining No No No -Wound/Ulcer Outcome Not Healed Not Healed Not Healed -Ulcer Cleansing Rinsed/ Rinsed/ Rinsed/ Irrigated with Irrigated with Irrigated with Saline Saline Saline -Foul Odor after Cleansing No No No -Bioengineered Tissue No No No -Bleeding Controlled with Pressure Pressure Pressure -Treatment Response Procedure Procedure Procedure Tolerated Well Tolerated Well Tolerated Well -Offloading No -Debridement - Subq, 1st 20sq cm No No Pain Scale: 0-10 Numeric Is Patient Pain Free? No Yes No LLE -Description Aching -Intensity 6 -Duration (hours) Chronic -Pain Aggravating Factors Debridement -Alleviating Factors/Interventions Will continue to monitor, Emotional Support -Comments cetecaine used bilat LE -Description Throbbing, Aching -Intensity 8 -Duration (hours) Chronic -Pain Behavior Guarding, Withdrawal from Touch -Pain Aggravating Factors Debridement -Alleviating Factors/Interventions Will continue to monitor, Emotional Support - Nurse 3 - General Ulcer D/C NN Start: 07/08/24 15:08 Freq: Status: Active Protocol: Activity Type Activity Date Activity User E-sign Co-sign Detail Recorded Client Recorded Date Recorded By Document 07/08/24 16:32 KW [id number] 07/08/24 16:33 KW Document 07/15/24 15:57 RB [id number] 07/15/24 15:58 RB 07/08/24 07/15/24 16:32 15:57 Wound Care Center Nurse 3 #3 LLE INF -Ulcer Cleansing Rinsed/ Irrigated with Saline -Primary Dressing Applied Promogran, Promogran, Silicone Border Silicone Border Foam 4x4 Foam 4x4 -Promogran 1 1 -Silicone Border Foam 4x4 1 1 2. LLE ant -Primary Dressing Applied Silicone Border Silicone Border Foam 4x4 Foam 4x4 -Other Dressing PROMOGRAN promogran -Silicone Border Foam 4x4 1 1 LLE -Compression Wrap Aron Wrap Treatment Response Procedure Tolerated Well Pain Scale: 0-10 Numeric Is Patient Pain Free? Yes Yes WC - Visit Discharge Discharge Condition Stable Stable Ambulatory Status Ambulatory Ambulatory Transportation Private Auto Private Auto Medication Reconcilliation completed & No No provided to patient/care provider Clinical Summary of Care Provided Yes Yes Charges/Coding Procedures Integumentary [id number]: [id number] [place] subq tissue 20 sq cm/< Assessment/Plan Assessment/Plan (1) Non-pressure chronic ulcer of left lower leg with fat layer exposed: CODE(S): L97.922 - Non-pressure chronic ulcer of unspecified part of left lower leg with fat layer exposed (2) Traumatic open wound of left lower leg: CODE(S): S81.802A - Unspecified open wound, left lower leg, initial encounter QUALIFIERS: Encounter type: subsequent encounter Qualified Code(s): S81.802D - Unspecified open wound, left lower leg, subsequent encounter (3) Lumbar scoliosis: CODE(S): M41.9 - Scoliosis, unspecified QUALIFIERS: Scoliosis type: other secondary scoliosis Qualified Code(s): M41.56 - Other secondary scoliosis, lumbar region (4) Low back pain: CODE(S): M54.50 - Low back pain, unspecified (5) DDD (degenerative disc disease), lumbosacral: CODE(S): M51.37 - Other intervertebral disc degeneration, lumbosacral region (6) Hypothyroidism (acquired): CODE(S): E03.9 - Hypothyroidism, unspecified (7) Cataracts, bilateral: CODE(S): H26.9 - Unspecified cataract (8) History of tonsillectomy: CODE(S): Z90.89 - Acquired absence of other organs (9) History of IBS: CODE(S): Z87.19 - Personal history of other diseases of the digestive system (10) Former smoker: CODE(S): Z87.891 - Personal history of nicotine dependence (11) History of lumbar spinal fusion: CODE(S): Z98.1 - Arthrodesis status (12) History of hysterectomy: CODE(S): Z90.710 - Acquired absence of both cervix and uterus (13) History of cervical discectomy: CODE(S): Z98.890 - Other specified postprocedural states (14) History of total hip replacement: CODE(S): Z96.649 - Presence of unspecified artificial hip joint (15) Status post spinal disc removal: CODE(S): Z98.890 - Other specified postprocedural states PLAN: Plan This is a 74-year-old female who presented with traumatic wounds in both lower extremities. Although the patient does not relate significant swelling in her lower extremities, measures to prevent such swelling have been thoroughly discussed. The patient has been encouraged to elevate her lower extremities as much as possible. She has been advised to refrain from prolonged, idle sitting. Activity has been encouraged. The patient has been encouraged to optimize her nutritional intake. Her appetite is said to be recently depressed due to the recent loss of her . She has been provided samples of Frank, and encouraged to use a nutritional supplement on a daily basis until which time her appetite returns to normal. We are to continue the use of Promogran and [place] SAP, which will be applied topically on a daily basis. The patient has been provided the product for use, and has been instructed in the appropriate means of application. Because of a failure to progress as expected, the patient's wound was swabbed for aerobic and anaerobic bacterial culture on July 03, 2024. Culture results were positive for very rare Staphylococcus epidermidis. Because of a lack of progress in wound healing, it had been intended to treat the patient with an oral antibiotic in accordance with the recent culture and sensitivity results. The use of Bactrim double strength had been planned. However, the patient's primary care physician, Dr. Lundberg, initiated oral antibiotic treatment empirically with Keflex and doxycycline, based on the results of the recent MRI scan which indicated findings suggestive of cellulitis. Therefore, further antibiotic management was deferred, with the intent to monitor the patient's clinical status serially. The patient has completed the antibiotic regimen prescribed by her primary care physician. If significant improvement is not noted in the original wound, consideration may be given to repeating a culture. The second wound on the patient's left pretibial surface, superior to the original wound, occurred as a result of trauma from her brother's wheelchair. We are to continue the use of Promogran topically to this wound as well. In addition to the Promogran, each of the wounds will be covered with [place] SAP. The more recent, traumatic wound appears to be healing well. The original wound has been delayed in healing, and a repeat culture may be considered in the near future. A noninvasive lower extremity arterial study was performed on June 13, 2024, the results of which revealed no evidence of significant arterial occlusive disease in the lower extremities. Laboratory studies have been recently obtained by the patient's primary care physician, the results of which have been reviewed. The patient is to return for reevaluation in 1 week. Total time: 25 minutes
[2024-07-30 15:09] VITALS: BP 127/63; PULSE 81; RESP 16; BMI 19.7
--- NOTE | 2024-07-31 09:47 | WC ---
PHOTO 07/29/24 ORTIZ MENA
--- NOTE | 2024-07-31 09:48 | WC ---
PHOTO 07/30/24 INF. MENA
--- NOTE | 2024-07-31 09:50 | PCM.WC.HP ---
History of Present Illness Date of Service: 07/30/24 Chief Complaint: Bilateral lower extremity traumatic wounds History of Wound: This is a 74-year-old female who presented with traumatic wounds to both lower extremities. The wounds were located on the pretibial surfaces bilaterally. The wound on the right pretibial surface occurred approximately 1 month prior to presentation, resulting when the patient bumped her leg against a trash bin. The wound had failed to heal appropriately. More recently, approximately 10 days prior to presentation, the patient dropped a box of spaghetti noodles onto the left pretibial surface, resulting in a wound which had failed to heal. The patient was seen by her primary care physician, Dr. Lundberg, 4 days prior to presentation, where a course of Keflex and doxycycline were initiated. The patient has completed her course of antibiotics. 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 The patient is mobile and active. She denies swelling in her legs. She sleeps on a flat surface at night. She denies a history of thrombophlebitis. The patient denies a history of congestive heart failure, myocardial infarction, diabetes mellitus, cerebrovascular accident, hypertension, renal disease, and pulmonary disease. She has a history of hypothyroidism. A limited venous duplex examination is noted to have been performed on October 26, 2022, examining only the right lower extremity, and revealing no evidence of thrombophlebitis. Valvular competence was not fully evaluated. [facility] Medical History Traumatic open wound of right lower leg Traumatic open wound of left lower leg Non-pressure chronic ulcer of left lower leg with fat layer exposed Non-pressure chronic ulcer of right lower leg with fat layer exposed Traumatic open wound of right lower leg with delayed healing Traumatic open wound of left lower leg with delayed healing Wears glasses Anxiety Alcohol use History of steroid therapy Easy bruising Back pain Injury of back Migraine headache Syncope History of IBS Former smoker Leg cramps History of edema History of stress test Cataracts, bilateral Arthritis Anemia Vitamin D deficiency, unspecified Hypothyroidism Home Medications ?Medication ?Instructions ?Recorded ?Last Taken ?Type lidocaine 5 % topical patch 2 patch topical DAILY 05/03/17 1 Day Ago History ~09/21/17 meloxicam 15 mg tablet 15 mg PO QDAY 05/03/17 09/22/17 History doxepin 10 mg capsule 10 mg PO QHS 12/16/19 Unknown History folic acid 400 mcg tablet 0.4 mg PO DAILY@0800 12/16/19 Unknown History linaclotide 145 mcg capsule 145 mcg PO DAILY 12/16/19 Unknown History estradiol 0.1 mg/24 hr semiweekly 2 patch transdermal MOTH 03/15/20 Unknown History transdermal patch (Bessie) acetaminophen 500 mg tablet 1,000 mg PO BID 01/06/22 Unknown History vitamin [id number] B1 100 mg-1 1 ml IM .QMO 01/06/22 Unknown History mg/mL intramuscular solution levothyroxine 50 mcg tablet 50 mcg PO DAILY 03/18/24 Unknown History gabapentin 100 mg capsule 100 mg PO BID 05/07/24 Unknown History loratadine 10 mg tablet 10 mg PO .prn 05/07/24 Unknown History sulfamethoxazole 800 1 tab PO Q12H #14 tabs 05/27/24 Unknown Rx mg-trimethoprim 160 mg tablet (Bactrim DS) cephalexin 500 mg capsule 500 mg PO 4X/DAY 07/08/24 Unknown History doxycycline hyclate 100 mg tablet 100 mg PO BID 07/08/24 Unknown History sulfamethoxazole 800 1 tab PO Q12H #14 tabs 07/08/24 Unknown Rx mg-trimethoprim 160 mg tablet (Bactrim DS) Allergy/AdvReac Type Severity Reaction Status Date / Time No Known Allergies Allergy Verified 05/07/24 11:09 Family History Mother Rheumatoid arthritis Father Pancreatic cancer Cancer Grandfather Myocardial infarction Grandmother Thyroid disorder Surgical History Status post spinal disc removal History of tonsillectomy History of lumbar spinal fusion History of total hip replacement History of hysterectomy History of cervical discectomy Social History household members: spouse Smoking Status: Never smoker alcohol intake: current alcohol intake frequency: a few times a week Alcohol type: wine substance use type: does not use what type of physical activity do you participate in: other details: physical therapy frequency: 1-2 times per week Vital Signs Vital Signs Vital Signs: 07/30/24 15:09 Pulse Rate 81 Respiratory Rate 16 Blood Pressure 127/63 H Blood Pressure Mean 84 Blood Pressure Source Monitor Blood Pressure Position Semi-Fowlers Blood Pressure Location Left Arm Oxygen Delivery Method Room Air Weight Weight: 101 lb Body Mass Index (BMI) 19.7 Physical Exam Const alert, oriented x3, no apparent distress, average body habitus and no limitations Constitutional Narrative: The patient's BMI is 19.7. She is of thin body habitus. General Appearance: cooperative, comfortable, well kempt and well developed Orientation / Consciousness: awake, oriented to person, oriented to place and oriented to time Exam Limitations: no limitations HEENT normocephalic, head/scalp atraumatic and hearing grossly normal bilaterally Head and Scalp: normal to inspection, normocephalic and atraumatic Face and Sinus: normal facial exam Nose: external nose normal External Ear: external ears normal Eyes EOMs intact bilaterally General Eye: normal appearance of both eyes Neck full ROM Resp normal respiratory effort, normal air movement, no retractions and no use of accessory muscles Effort and Inspection: able to speak in complete sentences Extremity no calf tenderness General Extremity: Negative for clubbing or cyanosis Skin Wound Narrative: The patient's lower extremities appear warm and well-perfused. Pedal pulses are easily palpable bilaterally. There is no significant swelling or edema in the patient's lower extremities. The wound on the right pretibial surface remains completely healed and epithelialized. Wounds remain on the left pretibial surface. The primary wound is full-thickness in nature. There is moderate bioburden. Dimensions are documented elsewhere. The wound appears to have decreased in size only slightly since the patient's last visit, with evidence of peripheral epithelialization. Dimensions are documented elsewhere. Wound margins are well beveled. A recent traumatic wound is noted on the patient's left pretibial surface, superior to the original wound. It is full-thickness, extending through all layers of the dermis and into subcutaneous tissues. There is no sign of infection or cellulitis. Dimensions are documented elsewhere. It has decreased in size since the patient's previous visit, and is now nearly totally healed. There are no flaps or undermining. Hair: normal Neuro oriented x3, CN's II-XII intact bilaterally, moves all extremities, no focal motor deficits and no sensory deficits noted Sensorium / Orientation: awake, alert, oriented to person, oriented to place and oriented to time Speech: speech normal Psych Appearance: grossly normal and appropriate Attitude: calm Activity / Motor Behavior: appropriate eye contact Speech: normal speech Mood & Affect: euthymic mood Thought Process: normal thought process Thought Content: normal thought content Attention / Concentration: attention grossly intact Debridement Note Debridement Note Wound debrided: Left lower extremity pretibial wounds (superior and medial) Laterality: Left Type of Debridement: Excisional debridement Anesthesia Used: 5% Lidocaine Gel and Cetacaine Depth: Down to and including healthy tissue and in the subcutaneous layer Percentage of wound debrided: 100 Instrument Used: 3mm curette Tissue Removed: Small amount of bioburden Severity: Fat Layer Exposed Amount of bleeding with debridement: Mild Bleeding Controlled with: Compression and gauze Patient tolerated procedure: Patient tolerated procedure well Debridement Free Text: Following a routine excisional debridement, the patient's original wound was cultured by swab for aerobic and anaerobic bacterial growth. Post-Debridement Measurements and Additional Note: Post-Debridement Measurements/Treatment - Nurse 1 - General Ulcer Assessment Start: 07/08/24 15:08 Freq: Status: Active Protocol: QUIANA Activity Type Activity Date Activity User E-sign Co-sign Detail Recorded Client Recorded Date Recorded By Document 07/08/24 15:09 KW [id number] 07/08/24 15:22 KW Document 07/15/24 15:05 ML [id number] 07/15/24 15:08 ML Document 07/23/24 15:01 ML [id number] 07/23/24 15:06 ML Document 07/30/24 15:09 KW [id number] 07/30/24 15:20 KW 07/08/24 07/15/24 07/23/24 15:09 15:05 15:01 - Today's Visit Information Type of service Follow-up Visit Follow-up Visit Follow-up Visit (Physician/PAYROLL SECRETARY (Physician/PAYROLL SECRETARY (Physician/PAYROLL SECRETARY ) ) ) Arrival Mode Ambulatory Ambulatory Ambulatory Transfer Assistance None None Patient Identification Verified (Name & Yes Yes Yes ) Patient Requires Transmission-Based No No Precautions Height and Weight Body Mass Index (BMI) 19.7 19.7 19.7 BMI Classification Normal Normal Normal Vital Signs Temperature (97.8 F-99.1 F) 97.5 F L 96.2 F L Temperature Source Temporal Temporal Pulse Rate (60-100) 63 74 70 Pulse Location Monitor Monitor Monitor Respiratory Rate (12-18) 16 14 14 Respiratory rate source Observation Observation Observation Oxygen Delivery Method Room Air Blood Pressure (90/60-120/80) 154/50 H 152/47 H 133/70 H Blood Pressure Mean 84 82 91 Source Monitor Monitor Monitor Position Semi-Fowlers Sitting Sitting Blood Pressure Location Right Arm Right Arm Right Arm History Since Last Visit- (Skip if this is Patient's initial visit) Have you changed medications since your No No No last visit? Any new allergies or adverse reactions No No No Had a fall/change in ADL's that may No No No increase risk of falls Signs or symptoms of abuse and/or No No No neglect since last visit Have you been in the hospital since your No No No last visit? Has dressing in place as prescribed Yes Yes Yes Has compression in place as prescribed N/A N/A N/A Has offloadiing in place as prescribed N/A N/A N/A Experienced any changes in pain level or No No No management Left Footwear Regular Shoe Right Footwear Regular Shoe Pain Scale: 0-10 Numeric Is Patient Pain Free? No Yes Yes LLE -Description Burning -Intensity 5 -Alleviating Factors/Interventions Medication, Inactivity/ Resting,Turning /Repositioning 07/30/24 15:09 WC - Today's Visit Information Type of service Follow-up Visit (Physician/PAYROLL SECRETARY ) Arrival Mode Ambulatory Transfer Assistance Patient Identification Verified (Name & Yes ) Patient Requires Transmission-Based Precautions Height and Weight Body Mass Index (BMI) 19.7 BMI Classification Normal Vital Signs Temperature (97.8 F-99.1 F) Temperature Source Pulse Rate (60-100) 81 Pulse Location Monitor Respiratory Rate (12-18) 16 Respiratory rate source Ausculation Oxygen Delivery Method Room Air Blood Pressure (90/60-120/80) 127/63 H Blood Pressure Mean 84 Source Monitor Position Semi-Fowlers Blood Pressure Location Left Arm History Since Last Visit- (Skip if this is Patient's initial visit) Have you changed medications since your No last visit? Any new allergies or adverse reactions No Had a fall/change in ADL's that may No increase risk of falls Signs or symptoms of abuse and/or No neglect since last visit Have you been in the hospital since your No last visit? Has dressing in place as prescribed Yes Has compression in place as prescribed N/A Has offloadiing in place as prescribed N/A Experienced any changes in pain level or No management Left Footwear Regular Shoe Right Footwear Regular Shoe Pain Scale: 0-10 Numeric Is Patient Pain Free? Yes LLE -Description -Intensity -Alleviating Factors/Interventions WC - Nurse 1 - General Ulcer Measurement Start: 07/08/24 15:08 Freq: Status: Active Protocol: Activity Type Activity Date Activity User E-sign Co-sign Detail Recorded Client Recorded Date Recorded By Document 07/08/24 15:09 KW [id number] 07/08/24 15:22 KW Document 07/15/24 15:05 ML [id number] 07/15/24 15:08 ML Document 07/23/24 15:01 ML [id number] 07/23/24 15:06 ML Document 07/30/24 15:09 KW [id number] 07/30/24 15:20 KW 07/08/24 07/15/24 07/23/24 15:09 15:05 15:01 Wound Center Nurse 1 #3 LLE INF -Current Size (cm) - Length 1.7 2.5 1.2 -Current Size (cm) - Width 1.5 0.5 0.5 -Current Size (cm) - Depth 0.1 0.1 0.1 -Total Square Cm 2.55 1.25 0.60 -Date of Last Picture (Recall this 07/08/24 field) -Exudate Amt Large Medium Medium -Exudate Type Yellow/Green Serous Serous -Wound Margin Distinct, Distinct, Distinct, Outline Outline Outline Attached Attached Attached -Granulation Amt Large (67-100%) Medium (34-66%) -Granulation Quality Emmet -Slough/Fibrin Yes Yes -Necrosis Amt Small (1-33%) Small (1-33%) -Necrotic Tissue Type Adherent Slough Adherent Slough -Texture (Joyce-wound Skin Appearance) Assessed Assessed Assessed -Moisture (Joyce-wound Skin Appearance) Assessed, Assessed Assessed, Maceration Maceration -Color (Joyce-wound Skin Appearance) Assessed, Assessed Assessed Hemosiderin Staining -Temperature (Jocye-wound Skin No Abnormality No Abnormality Appearance) (Pt Warm) (Pt Warm) -Tenderness on Palpation (Joyce-wound No No Skin Appearance) -Ulcer Cleansing Soap and Water Soap and Water Rinsed/ Irrigated with Saline -Foul Odor after Cleansing No No No -Anesthetic Used 5% Lidocaine 5% Lidocaine 5% Lidocaine Gel Gel Gel 2. LLE ant -Current Size (cm) - Length 3.5 2 0.1 -Current Size (cm) - Width 1.6 1.5 0.1 -Current Size (cm) - Depth 0.1 0.1 0.1 -Total Square Cm 5.60 3.0 0.01 -Date of Last Picture (Recall this 07/08/24 field) -Exudate Amt Large Small Small -Exudate Type Serosanguineous Serosanguineous Serous -Wound Margin Distinct, Distinct, Outline Outline Attached Attached -Granulation Amt Large (67-100%) Medium (34-66%) Small (1-33%) -Granulation Quality Red -Necrosis Amt Small (1-33%) Medium (34-66%) Small (1-33%) -Necrotic Tissue Type Adherent Slough Adherent Slough Adherent Slough -Texture (Joyce-wound Skin Appearance) Assessed Assessed Assessed -Moisture (Joyce-wound Skin Appearance) Assessed Assessed Assessed -Color (Joyce-wound Skin Appearance) Assessed, Assessed Assessed Hemosiderin Staining -Temperature (Joyce-wound Skin No Abnormality No Abnormality No Abnormality Appearance) (Pt Warm) (Pt Warm) (Pt Warm) -Tenderness on Palpation (Joyce-wound No No Yes Skin Appearance) -Ulcer Cleansing Soap and Water Soap and Water Rinsed/ Irrigated with Saline -Foul Odor after Cleansing No No No -Anesthetic Used 5% Lidocaine 5% Lidocaine 5% Lidocaine Gel Gel Gel Left Calf (cm) 28.2 Left Ankle (cm) 17.5 07/30/24 15:09 Wound Center Nurse 1 #3 LLE INF -Current Size (cm) - Length 1.5 -Current Size (cm) - Width 1.0 -Current Size (cm) - Depth 0.1 -Total Square Cm 1.50 -Date of Last Picture (Recall this 07/30/24 field) -Exudate Amt Large -Exudate Type Serosanguineous -Wound Margin Distinct, Outline Attached -Granulation Amt Medium (34-66%) -Granulation Quality Pale,Emmet -Slough/Fibrin -Necrosis Amt Large (67-100%) -Necrotic Tissue Type Adherent Slough -Texture (Joyce-wound Skin Appearance) Assessed -Moisture (Joyce-wound Skin Appearance) Assessed, Maceration -Color (Joyce-wound Skin Appearance) Assessed -Temperature (Joyce-wound Skin No Abnormality Appearance) (Pt Warm) -Tenderness on Palpation (Joyce-wound No Skin Appearance) -Ulcer Cleansing Soap and Water -Foul Odor after Cleansing No -Anesthetic Used 5% Lidocaine Gel 2. LLE ant -Current Size (cm) - Length 1 -Current Size (cm) - Width 0.5 -Current Size (cm) - Depth 0.1 -Total Square Cm 0.5 -Date of Last Picture (Recall this 07/30/24 field) -Exudate Amt Medium -Exudate Type Serous -Wound Margin -Granulation Amt Large (67-100%) -Granulation Quality Red -Necrosis Amt Small (1-33%) -Necrotic Tissue Type Adherent Slough -Texture (Joyce-wound Skin Appearance) Assessed -Moisture (Joyce-wound Skin Appearance) Assessed -Color (Joyce-wound Skin Appearance) Assessed, Hemosiderin Staining -Temperature (Joyce-wound Skin No Abnormality Appearance) (Pt Warm) -Tenderness on Palpation (Joyce-wound No Skin Appearance) -Ulcer Cleansing Soap and Water -Foul Odor after Cleansing No -Anesthetic Used 5% Lidocaine Gel Left Calf (cm) 27.5 Left Ankle (cm) 17 WC - Nurse 2 - General Ulcer CM Notes Start: 07/08/24 15:08 Freq: Status: Active Protocol: Activity Type Activity Date Activity User E-sign Co-sign Detail Recorded Client Recorded Date Recorded By Document 07/08/24 16:22 DS [id number] 07/08/24 16:28 DS Document 07/15/24 15:32 DS [id number] 07/15/24 15:39 DS Document 07/23/24 15:21 DS [id number] 07/23/24 15:25 DS Document 07/30/24 15:23 [id number] 07/30/24 15:35 07/08/24 07/15/24 07/23/24 16:22 15:32 15:21 Wound Center Nurse 2 #3 LLE INF -Time 16:22 15:32 15:21 -Correct Patient Yes Yes Yes -Correct Side, Site, Position Yes Yes Yes -Correct Procedure Yes Yes Yes -Procedure Performed Yes Yes Yes -Type of Procedure Debridement Debridement Debridement -Clinical Debridement Subcutaneous Subcutaneous Subcutaneous -Tissue Removed Subcutaneous Subcutaneous Subcutaneous -Post Debridement (cm) - Length 1.5 1.3 1.8 -Post Debridement (cm) - Width 1.5 1.4 0.8 -Post Debridement (cm) - Depth 0.1 0.1 0.1 -Total Square (Post) (cm) 2.25 1.82 1.44 -Area of Debridement (cm) - Length 1.5 1.3 1.8 -Area of Debridement (cm) - Width 1.5 1.4 0.8 -Total Square (Area) (cm) 2.25 1.82 1.44 -Tunneling No No No -Undermining/Tunneling No No No -Circular Undermining No No No -Wound/Ulcer Outcome Not Healed Not Healed Not Healed -Ulcer Cleansing Rinsed/ Rinsed/ Rinsed/ Irrigated with Irrigated with Irrigated with Saline Saline Saline -Foul Odor after Cleansing No No No -Bioengineered Tissue No No No -Bleeding Controlled with Pressure Pressure Pressure -Treatment Response Procedure Procedure Procedure Tolerated Well Tolerated Well Tolerated Well -Offloading No -Debridement - Subq, 1st 20sq cm Yes Yes Yes 2. LLE ant -Time 16:22 15:32 15:21 -Correct Patient Yes Yes Yes -Correct Side, Site, Position Yes Yes Yes -Correct Procedure Yes Yes -Procedure Performed Yes Yes No -Type of Procedure Debridement Debridement -Clinical Debridement Subcutaneous Subcutaneous -Tissue Removed Subcutaneous Subcutaneous -Post Debridement (cm) - Length 2.5 2.0 1.5 -Post Debridement (cm) - Width 1.1 1.3 1.4 -Post Debridement (cm) - Depth 0.2 0.1 0.1 -Total Square (Post) (cm) 2.75 2.60 2.10 -Area of Debridement (cm) - Length 2.5 2.0 1.5 -Area of Debridement (cm) - Width 1.1 1.3 1.4 -Total Square (Area) (cm) 2.75 2.60 2.10 -Tunneling No No No -Undermining/Tunneling No No No -Circular Undermining No No No -Wound/Ulcer Outcome Not Healed Not Healed Not Healed -Ulcer Cleansing Rinsed/ Rinsed/ Rinsed/ Irrigated with Irrigated with Irrigated with Saline Saline Saline -Foul Odor after Cleansing No No No -Bioengineered Tissue No No No -Bleeding Controlled with Pressure Pressure Pressure -Treatment Response Procedure Procedure Procedure Tolerated Well Tolerated Well Tolerated Well -Offloading No -Debridement - Subq, 1st 20sq cm No No Pain Scale: 0-10 Numeric Is Patient Pain Free? No Yes No LLE -Description Aching -Intensity 6 -Duration (hours) Chronic -Pain Aggravating Factors Debridement -Alleviating Factors/Interventions Will continue to monitor, Emotional Support -Comments cetecaine used bilat LE -Description Throbbing, Aching -Intensity 8 -Duration (hours) Chronic -Pain Behavior Guarding, Withdrawal from Touch -Pain Aggravating Factors Debridement -Alleviating Factors/Interventions Will continue to monitor, Emotional Support 07/30/24 15:23 Wound Center Nurse 2 #3 LLE INF -Time 15:23 -Correct Patient Yes -Correct Side, Site, Position Yes -Correct Procedure Yes -Procedure Performed Yes -Type of Procedure Debridement -Clinical Debridement Subcutaneous -Tissue Removed Subcutaneous -Post Debridement (cm) - Length 1.0 -Post Debridement (cm) - Width 1.1 -Post Debridement (cm) - Depth 0.1 -Total Square (Post) (cm) 1.10 -Area of Debridement (cm) - Length 1.0 -Area of Debridement (cm) - Width 1.1 -Total Square (Area) (cm) 1.10 -Tunneling No -Undermining/Tunneling No -Circular Undermining No -Wound/Ulcer Outcome Not Healed -Ulcer Cleansing Rinsed/ Irrigated with Saline -Foul Odor after Cleansing No -Bioengineered Tissue No -Bleeding Controlled with Pressure -Treatment Response Procedure Tolerated Well -Offloading No -Debridement - Subq, 1st 20sq cm Yes 2. LLE ant -Time 15:27 -Correct Patient Yes -Correct Side, Site, Position Yes -Correct Procedure No -Procedure Performed No -Type of Procedure -Clinical Debridement -Tissue Removed -Post Debridement (cm) - Length 0.5 -Post Debridement (cm) - Width 0.8 -Post Debridement (cm) - Depth 0.1 -Total Square (Post) (cm) 0.40 -Area of Debridement (cm) - Length -Area of Debridement (cm) - Width -Total Square (Area) (cm) -Tunneling No -Undermining/Tunneling No -Circular Undermining No -Wound/Ulcer Outcome -Ulcer Cleansing -Foul Odor after Cleansing No -Bioengineered Tissue No -Bleeding Controlled with NA -Treatment Response -Offloading -Debridement - Subq, 1st 20sq cm Pain Scale: 0-10 Numeric Is Patient Pain Free? Yes LLE -Description -Intensity -Duration (hours) -Pain Aggravating Factors -Alleviating Factors/Interventions -Comments bilat LE -Description -Intensity -Duration (hours) -Pain Behavior -Pain Aggravating Factors -Alleviating Factors/Interventions WC - Nurse 3 - General Ulcer D/C NN Start: 07/08/24 15:08 Freq: Status: Active Protocol: Activity Type Activity Date Activity User E-sign Co-sign Detail Recorded Client Recorded Date Recorded By Document 07/08/24 16:32 KW [id number] 07/08/24 16:33 KW Document 07/15/24 15:57 RB [id number] 07/15/24 15:58 RB Document 07/30/24 15:41 BMF [id number] 07/30/24 15:42 BMF 07/08/24 07/15/24 07/30/24 16:32 15:57 15:41 Wound Care Center Nurse 3 #3 LLE INF -Ulcer Cleansing Rinsed/ Rinsed/ Irrigated with Irrigated with Saline Saline -Foul Odor after Cleansing No -Primary Dressing Applied Promogran, Promogran, Aquacel AG 4x4, Silicone Border Silicone Border Silicone Border Foam 4x4 Foam 4x4 Foam 4x4 -Aquacel AG 4x4 1 -Promogran 1 1 -Silicone Border Foam 4x4 1 1 1 -Wound Comment(s) drsg per kw occupational therapist assistant 2. LLE ant -Ulcer Cleansing Rinsed/ Irrigated with Saline -Foul Odor after Cleansing No -Primary Dressing Applied Silicone Border Silicone Border Aquacel AG 4x4, Foam 4x4 Foam 4x4 Silicone Border Foam 4x4 -Other Dressing PROMOGRAN promogran -Aquacel AG 4x4 0 -Silicone Border Foam 4x4 1 1 1 -Wound Comment(s) drsg per kw occupational therapist assistant LLE -Compression Wrap Aron Wrap Treatment Response Procedure Procedure Tolerated Well Tolerated Well Pain Scale: 0-10 Numeric Is Patient Pain Free? Yes Yes Yes WC - Visit Discharge Discharge Condition Stable Stable Stable Ambulatory Status Ambulatory Ambulatory Ambulatory Transportation Private Auto Private Auto Private Auto Medication Reconcilliation completed & No No provided to patient/care provider Clinical Summary of Care Provided Yes Yes Charges/Coding Procedures Integumentary [id number]: [id number] Violette subq tissue 20 sq cm/< Assessment/Plan Assessment/Plan (1) Non-pressure chronic ulcer of left lower leg with fat layer exposed: CODE(S): L97.922 - Non-pressure chronic ulcer of unspecified part of left lower leg with fat layer exposed (2) Traumatic open wound of left lower leg: CODE(S): S81.802A - Unspecified open wound, left lower leg, initial encounter QUALIFIERS: Encounter type: subsequent encounter Qualified Code(s): S81.802D - Unspecified open wound, left lower leg, subsequent encounter (3) Lumbar scoliosis: CODE(S): M41.9 - Scoliosis, unspecified QUALIFIERS: Scoliosis type: other secondary scoliosis Qualified Code(s): M41.56 - Other secondary scoliosis, lumbar region (4) Low back pain: CODE(S): M54.50 - Low back pain, unspecified (5) DDD (degenerative disc disease), lumbosacral: CODE(S): M51.37 - Other intervertebral disc degeneration, lumbosacral region (6) Hypothyroidism (acquired): CODE(S): E03.9 - Hypothyroidism, unspecified (7) Cataracts, bilateral: CODE(S): H26.9 - Unspecified cataract (8) History of tonsillectomy: CODE(S): Z90.89 - Acquired absence of other organs (9) History of IBS: CODE(S): Z87.19 - Personal history of other diseases of the digestive system (10) Former smoker: CODE(S): Z87.891 - Personal history of nicotine dependence (11) History of lumbar spinal fusion: CODE(S): Z98.1 - Arthrodesis status (12) History of hysterectomy: CODE(S): Z90.710 - Acquired absence of both cervix and uterus (13) History of cervical discectomy: CODE(S): Z98.890 - Other specified postprocedural states (14) History of total hip replacement: CODE(S): Z96.649 - Presence of unspecified artificial hip joint (15) Status post spinal disc removal: CODE(S): Z98.890 - Other specified postprocedural states PLAN: Plan This is a 74-year-old female who presented with traumatic wounds in both lower extremities. Although the patient does not relate significant swelling in her lower extremities, measures to prevent such swelling have been thoroughly discussed. The patient has been encouraged to elevate her lower extremities as much as possible. She has been advised to refrain from prolonged, idle sitting. Activity has been encouraged. The patient has been encouraged to optimize her nutritional intake. Her appetite is said to be recently depressed due to the recent loss of her . She has been provided samples of Frank, and encouraged to use a nutritional supplement on a daily basis until which time her appetite returns to normal. We are to implement the use of Aquacel Extra and Burson SAP topically to the wounds on a daily basis. The patient has been instructed on appropriate means of application. The patient's primary care physician has recently treated the patient empirically with oral Keflex and doxycycline, based on the results of a recent MRI scan indicating suggestive cellulitis. The patient has completed her course of antibiotics. However, the antibiotics recently prescribed were not in accordance with her most recent culture results. Therefore, a repeat culture has been obtained by swab at this visit for aerobic and anaerobic bacterial growth. Culture results will be awaited. Today's cultures were obtained due to concerns relative to a lack of significant healing progress with respect to the patient's original wound. The second wound on the patient's left pretibial surface, superior to the original wound, occurred as a result of trauma from her brother's wheelchair, and is healing progressively. A noninvasive lower extremity arterial study was performed on June 13, 2024, the results of which revealed no evidence of significant arterial occlusive disease in the lower extremities. Laboratory studies have been recently obtained by the patient's primary care physician, the results of which have been reviewed. The patient is to return for reevaluation in 1 week. Total time: 24 minutes
[2024-08-06 14:42] VITALS: BP 145/69; PULSE 70; RESP 16; TEMP 36.1; BMI 19.7
--- NOTE | 2024-08-07 08:17 | WC ---
PHOTO 08/06/24 [facility]
--- NOTE | 2024-08-08 15:12 | PCM.WC.HP ---
History of Present Illness Date of Service: 08/06/24 Chief Complaint: Bilateral lower extremity traumatic wounds History of Wound: This is a 74-year-old female who presented with traumatic wounds to both lower extremities. The wounds were located on the pretibial surfaces bilaterally. The wound on the right pretibial surface occurred approximately 1 month prior to presentation, resulting when the patient bumped her leg against a trash bin. The wound had failed to heal appropriately. More recently, approximately 10 days prior to presentation, the patient dropped a box of spaghetti noodles onto the left pretibial surface, resulting in a wound which had failed to heal. The patient was seen by her primary care physician, Dr. Lundberg, 4 days prior to presentation, where a course of Keflex and doxycycline were initiated. The patient has completed her course of antibiotics. 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 The patient is mobile and active. She denies swelling in her legs. She sleeps on a flat surface at night. She denies a history of thrombophlebitis. The patient denies a history of congestive heart failure, myocardial infarction, diabetes mellitus, cerebrovascular accident, hypertension, renal disease, and pulmonary disease. She has a history of hypothyroidism. A limited venous duplex examination is noted to have been performed on October 26, 2022, examining only the right lower extremity, and revealing no evidence of thrombophlebitis. Valvular competence was not fully evaluated. [facility] Medical History Traumatic open wound of right lower leg Traumatic open wound of left lower leg Non-pressure chronic ulcer of left lower leg with fat layer exposed Non-pressure chronic ulcer of right lower leg with fat layer exposed Traumatic open wound of right lower leg with delayed healing Traumatic open wound of left lower leg with delayed healing Wears glasses Anxiety Alcohol use History of steroid therapy Easy bruising Back pain Injury of back Migraine headache Syncope History of IBS Former smoker Leg cramps History of edema History of stress test Cataracts, bilateral Arthritis Anemia Vitamin D deficiency, unspecified Hypothyroidism Home Medications ?Medication ?Instructions ?Recorded ?Last Taken ?Type lidocaine 5 % topical patch 2 patch topical DAILY 05/03/17 1 Day Ago History ~09/21/17 meloxicam 15 mg tablet 15 mg PO QDAY 05/03/17 09/22/17 History doxepin 10 mg capsule 10 mg PO QHS 12/16/19 Unknown History folic acid 400 mcg tablet 0.4 mg PO DAILY@0800 12/16/19 Unknown History linaclotide 145 mcg capsule 145 mcg PO DAILY 12/16/19 Unknown History estradiol 0.1 mg/24 hr semiweekly 2 patch transdermal MOTH 03/15/20 Unknown History transdermal patch (Bessie) acetaminophen 500 mg tablet 1,000 mg PO BID 01/06/22 Unknown History vitamin [id number] B1 100 mg-1 1 ml IM .QMO 01/06/22 Unknown History mg/mL intramuscular solution levothyroxine 50 mcg tablet 50 mcg PO DAILY 03/18/24 Unknown History gabapentin 100 mg capsule 100 mg PO BID 05/07/24 Unknown History loratadine 10 mg tablet 10 mg PO .prn 05/07/24 Unknown History sulfamethoxazole 800 1 tab PO Q12H #14 tabs 05/27/24 Unknown Rx mg-trimethoprim 160 mg tablet (Bactrim DS) cephalexin 500 mg capsule 500 mg PO 4X/DAY 07/08/24 Unknown History doxycycline hyclate 100 mg tablet 100 mg PO BID 07/08/24 Unknown History sulfamethoxazole 800 1 tab PO Q12H #14 tabs 07/08/24 Unknown Rx mg-trimethoprim 160 mg tablet (Bactrim DS) Allergy/AdvReac Type Severity Reaction Status Date / Time No Known Allergies Allergy Verified 05/07/24 11:09 Family History Mother Rheumatoid arthritis Father Pancreatic cancer Cancer Grandfather Myocardial infarction Grandmother Thyroid disorder Surgical History Status post spinal disc removal History of tonsillectomy History of lumbar spinal fusion History of total hip replacement History of hysterectomy History of cervical discectomy Social History household members: spouse Smoking Status: Never smoker alcohol intake: current alcohol intake frequency: a few times a week Alcohol type: wine substance use type: does not use what type of physical activity do you participate in: other details: physical therapy frequency: 1-2 times per week Vital Signs Vital Signs Vital Signs: Weight Weight: 101 lb Body Mass Index (BMI) 19.7 Physical Exam Const alert, oriented x3, no apparent distress, average body habitus and no limitations Constitutional Narrative: The patient's BMI is 19.7. She is of thin body habitus. General Appearance: cooperative, comfortable, well kempt and well developed Orientation / Consciousness: awake, oriented to person, oriented to place and oriented to time Exam Limitations: no limitations HEENT normocephalic, head/scalp atraumatic and hearing grossly normal bilaterally Head and Scalp: normal to inspection, normocephalic and atraumatic Face and Sinus: normal facial exam Nose: external nose normal External Ear: external ears normal Eyes EOMs intact bilaterally General Eye: normal appearance of both eyes Neck full ROM Resp normal respiratory effort, normal air movement, no retractions and no use of accessory muscles Effort and Inspection: able to speak in complete sentences Extremity no calf tenderness General Extremity: Negative for clubbing or cyanosis Skin Wound Narrative: The patient's lower extremities appear warm and well-perfused. Pedal pulses are easily palpable bilaterally. There is no significant swelling or edema in the patient's lower extremities. The wound on the right pretibial surface remains completely healed and epithelialized. Wounds remain on the left pretibial surface. The primary wound is full-thickness in nature. There is moderate bioburden. Dimensions are documented elsewhere. The wound appears to have decreased in size since the patient's last visit, with evidence of epithelialization centrally. Dimensions are documented elsewhere. Wound margins are well beveled. A recent traumatic wound is noted on the patient's left pretibial surface, superior to the original wound. It is full-thickness, extending through all layers of the dermis and into subcutaneous tissues. There is no sign of infection or cellulitis. Dimensions are documented elsewhere. It has decreased in size since the patient's previous visit, and is now nearly totally healed. There are no flaps or undermining. Hair: normal Neuro oriented x3, CN's II-XII intact bilaterally, moves all extremities, no focal motor deficits and no sensory deficits noted Sensorium / Orientation: awake, alert, oriented to person, oriented to place and oriented to time Speech: speech normal Psych Appearance: grossly normal and appropriate Attitude: calm Activity / Motor Behavior: appropriate eye contact Speech: normal speech Mood & Affect: euthymic mood Thought Process: normal thought process Thought Content: normal thought content Attention / Concentration: attention grossly intact Debridement Note Debridement Note Wound debrided: Left lower extremity pretibial wounds (superior and medial) Laterality: Left Type of Debridement: Excisional debridement Anesthesia Used: 5% Lidocaine Gel and Cetacaine Depth: Down to and including healthy tissue and in the subcutaneous layer Percentage of wound debrided: 100 Instrument Used: 3mm curette Tissue Removed: Small amount of bioburden Severity: Fat Layer Exposed Amount of bleeding with debridement: Mild Bleeding Controlled with: Compression and gauze Patient tolerated procedure: Patient tolerated procedure well Post-Debridement Measurements and Additional Note: Post-Debridement Measurements/Treatment - Nurse 1 - General Ulcer Assessment Start: 07/08/24 15:08 Freq: Status: Active Protocol: QUIANA Activity Type Activity Date Activity User E-sign Co-sign Detail Recorded Client Recorded Date Recorded By Document 07/08/24 15:09 KW [id number] 07/08/24 15:22 KW Document 07/15/24 15:05 ML [id number] 07/15/24 15:08 ML Document 07/23/24 15:01 ML [id number] 07/23/24 15:06 ML Document 07/30/24 15:09 KW [id number] 07/30/24 15:20 KW 07/08/24 07/15/24 07/23/24 15:09 15:05 15:01 - Today's Visit Information Type of service Follow-up Visit Follow-up Visit Follow-up Visit (Physician/DRAFTER ELECTRICAL (Physician/DRAFTER ELECTRICAL (Physician/DRAFTER ELECTRICAL ) ) ) Arrival Mode Ambulatory Ambulatory Ambulatory Transfer Assistance None None Patient Identification Verified (Name & Yes Yes Yes ) Patient Requires Transmission-Based No No Precautions Height and Weight Body Mass Index (BMI) 19.7 19.7 19.7 BMI Classification Normal Normal Normal Vital Signs Temperature (97.8 F-99.1 F) 97.5 F L 96.2 F L Temperature Source Temporal Temporal Pulse Rate (60-100) 63 74 70 Pulse Location Monitor Monitor Monitor Respiratory Rate (12-18) 16 14 14 Respiratory rate source Observation Observation Observation Oxygen Delivery Method Room Air Blood Pressure (90/60-120/80) 154/50 H 152/47 H 133/70 H Blood Pressure Mean 84 82 91 Source Monitor Monitor Monitor Position Semi-Fowlers Sitting Sitting Blood Pressure Location Right Arm Right Arm Right Arm History Since Last Visit- (Skip if this is Patient's initial visit) Have you changed medications since your No No No last visit? Any new allergies or adverse reactions No No No Had a fall/change in ADL's that may No No No increase risk of falls Signs or symptoms of abuse and/or No No No neglect since last visit Have you been in the hospital since your No No No last visit? Has dressing in place as prescribed Yes Yes Yes Has compression in place as prescribed N/A N/A N/A Has offloadiing in place as prescribed N/A N/A N/A Experienced any changes in pain level or No No No management Left Footwear Regular Shoe Right Footwear Regular Shoe Pain Scale: 0-10 Numeric Is Patient Pain Free? No Yes Yes LLE -Description Burning -Intensity 5 -Alleviating Factors/Interventions Medication, Inactivity/ Resting,Turning /Repositioning 07/30/24 15:09 WC - Today's Visit Information Type of service Follow-up Visit (Physician/DRAFTER ELECTRICAL ) Arrival Mode Ambulatory Transfer Assistance Patient Identification Verified (Name & Yes ) Patient Requires Transmission-Based Precautions Height and Weight Body Mass Index (BMI) 19.7 BMI Classification Normal Vital Signs Temperature (97.8 F-99.1 F) Temperature Source Pulse Rate (60-100) 81 Pulse Location Monitor Respiratory Rate (12-18) 16 Respiratory rate source Ausculation Oxygen Delivery Method Room Air Blood Pressure (90/60-120/80) 127/63 H Blood Pressure Mean 84 Source Monitor Position Semi-Fowlers Blood Pressure Location Left Arm History Since Last Visit- (Skip if this is Patient's initial visit) Have you changed medications since your No last visit? Any new allergies or adverse reactions No Had a fall/change in ADL's that may No increase risk of falls Signs or symptoms of abuse and/or No neglect since last visit Have you been in the hospital since your No last visit? Has dressing in place as prescribed Yes Has compression in place as prescribed N/A Has offloadiing in place as prescribed N/A Experienced any changes in pain level or No management Left Footwear Regular Shoe Right Footwear Regular Shoe Pain Scale: 0-10 Numeric Is Patient Pain Free? Yes LLE -Description -Intensity -Alleviating Factors/Interventions WC - Nurse 1 - General Ulcer Measurement Start: 07/08/24 15:08 Freq: Status: Active Protocol: Activity Type Activity Date Activity User E-sign Co-sign Detail Recorded Client Recorded Date Recorded By Document 07/08/24 15:09 KW [id number] 07/08/24 15:22 KW Document 07/15/24 15:05 ML [id number] 07/15/24 15:08 ML Document 07/23/24 15:01 ML [id number] 07/23/24 15:06 ML Document 07/30/24 15:09 KW [id number] 07/30/24 15:20 KW 07/08/24 07/15/24 07/23/24 15:09 15:05 15:01 Wound Center Nurse 1 #3 LLE INF -Current Size (cm) - Length 1.7 2.5 1.2 -Current Size (cm) - Width 1.5 0.5 0.5 -Current Size (cm) - Depth 0.1 0.1 0.1 -Total Square Cm 2.55 1.25 0.60 -Date of Last Picture (Recall this 07/08/24 field) -Exudate Amt Large Medium Medium -Exudate Type Yellow/Green Serous Serous -Wound Margin Distinct, Distinct, Distinct, Outline Outline Outline Attached Attached Attached -Granulation Amt Large (67-100%) Medium (34-66%) -Granulation Quality [place] -Slough/Fibrin Yes Yes -Necrosis Amt Small (1-33%) Small (1-33%) -Necrotic Tissue Type Adherent Slough Adherent Slough -Texture (Joyce-wound Skin Appearance) Assessed Assessed Assessed -Moisture (Joyce-wound Skin Appearance) Assessed, Assessed Assessed, Maceration Maceration -Color (Joyce-wound Skin Appearance) Assessed, Assessed Assessed Hemosiderin Staining -Temperature (Joyce-wound Skin No Abnormality No Abnormality Appearance) (Pt Warm) (Pt Warm) -Tenderness on Palpation (Joyce-wound No No Skin Appearance) -Ulcer Cleansing Soap and Water Soap and Water Rinsed/ Irrigated with Saline -Foul Odor after Cleansing No No No -Anesthetic Used 5% Lidocaine 5% Lidocaine 5% Lidocaine Gel Gel Gel 2. LLE ant -Current Size (cm) - Length 3.5 2 0.1 -Current Size (cm) - Width 1.6 1.5 0.1 -Current Size (cm) - Depth 0.1 0.1 0.1 -Total Square Cm 5.60 3.0 0.01 -Date of Last Picture (Recall this 07/08/24 field) -Exudate Amt Large Small Small -Exudate Type Serosanguineous Serosanguineous Serous -Wound Margin Distinct, Distinct, Outline Outline Attached Attached -Granulation Amt Large (67-100%) Medium (34-66%) Small (1-33%) -Granulation Quality Red -Necrosis Amt Small (1-33%) Medium (34-66%) Small (1-33%) -Necrotic Tissue Type Adherent Slough Adherent Slough Adherent Slough -Texture (Joyce-wound Skin Appearance) Assessed Assessed Assessed -Moisture (Joyce-wound Skin Appearance) Assessed Assessed Assessed -Color (Joyce-wound Skin Appearance) Assessed, Assessed Assessed Hemosiderin Staining -Temperature (Joyce-wound Skin No Abnormality No Abnormality No Abnormality Appearance) (Pt Warm) (Pt Warm) (Pt Warm) -Tenderness on Palpation (Joyce-wound No No Yes Skin Appearance) -Ulcer Cleansing Soap and Water Soap and Water Rinsed/ Irrigated with Saline -Foul Odor after Cleansing No No No -Anesthetic Used 5% Lidocaine 5% Lidocaine 5% Lidocaine Gel Gel Gel Left Calf (cm) 28.2 Left Ankle (cm) 17.5 07/30/24 15:09 Wound Center Nurse 1 #3 LLE INF -Current Size (cm) - Length 1.5 -Current Size (cm) - Width 1.0 -Current Size (cm) - Depth 0.1 -Total Square Cm 1.50 -Date of Last Picture (Recall this 07/30/24 field) -Exudate Amt Large -Exudate Type Serosanguineous -Wound Margin Distinct, Outline Attached -Granulation Amt Medium (34-66%) -Granulation Quality Pale,[place] -Slough/Fibrin -Necrosis Amt Large (67-100%) -Necrotic Tissue Type Adherent Slough -Texture (Joyce-wound Skin Appearance) Assessed -Moisture (Joyce-wound Skin Appearance) Assessed, Maceration -Color (Joyce-wound Skin Appearance) Assessed -Temperature (Joyce-wound Skin No Abnormality Appearance) (Pt Warm) -Tenderness on Palpation (Joyce-wound No Skin Appearance) -Ulcer Cleansing Soap and Water -Foul Odor after Cleansing No -Anesthetic Used 5% Lidocaine Gel 2. LLE ant -Current Size (cm) - Length 1 -Current Size (cm) - Width 0.5 -Current Size (cm) - Depth 0.1 -Total Square Cm 0.5 -Date of Last Picture (Recall this 07/30/24 field) -Exudate Amt Medium -Exudate Type Serous -Wound Margin -Granulation Amt Large (67-100%) -Granulation Quality Red -Necrosis Amt Small (1-33%) -Necrotic Tissue Type Adherent Slough -Texture (Joyce-wound Skin Appearance) Assessed -Moisture (Joyce-wound Skin Appearance) Assessed -Color (Joyce-wound Skin Appearance) Assessed, Hemosiderin Staining -Temperature (Joyce-wound Skin No Abnormality Appearance) (Pt Warm) -Tenderness on Palpation (Jyoce-wound No Skin Appearance) -Ulcer Cleansing Soap and Water -Foul Odor after Cleansing No -Anesthetic Used 5% Lidocaine Gel Left Calf (cm) 27.5 Left Ankle (cm) 17 WC - Nurse 2 - General Ulcer CM Notes Start: 07/08/24 15:08 Freq: Status: Active Protocol: Activity Type Activity Date Activity User E-sign Co-sign Detail Recorded Client Recorded Date Recorded By Document 07/08/24 16:22 DS [id number] 07/08/24 16:28 DS Document 07/15/24 15:32 DS [id number] 07/15/24 15:39 DS Document 07/23/24 15:21 DS [id number] 07/23/24 15:25 DS Document 07/30/24 15:23 [id number] 07/30/24 15:35 07/08/24 07/15/24 07/23/24 16:22 15:32 15:21 Wound Center Nurse 2 #3 LLE INF -Time 16:22 15:32 15:21 -Correct Patient Yes Yes Yes -Correct Side, Site, Position Yes Yes Yes -Correct Procedure Yes Yes Yes -Procedure Performed Yes Yes Yes -Type of Procedure Debridement Debridement Debridement -Clinical Debridement Subcutaneous Subcutaneous Subcutaneous -Tissue Removed Subcutaneous Subcutaneous Subcutaneous -Post Debridement (cm) - Length 1.5 1.3 1.8 -Post Debridement (cm) - Width 1.5 1.4 0.8 -Post Debridement (cm) - Depth 0.1 0.1 0.1 -Total Square (Post) (cm) 2.25 1.82 1.44 -Area of Debridement (cm) - Length 1.5 1.3 1.8 -Area of Debridement (cm) - Width 1.5 1.4 0.8 -Total Square (Area) (cm) 2.25 1.82 1.44 -Tunneling No No No -Undermining/Tunneling No No No -Circular Undermining No No No -Wound/Ulcer Outcome Not Healed Not Healed Not Healed -Ulcer Cleansing Rinsed/ Rinsed/ Rinsed/ Irrigated with Irrigated with Irrigated with Saline Saline Saline -Foul Odor after Cleansing No No No -Bioengineered Tissue No No No -Bleeding Controlled with Pressure Pressure Pressure -Treatment Response Procedure Procedure Procedure Tolerated Well Tolerated Well Tolerated Well -Offloading No -Debridement - Subq, 1st 20sq cm Yes Yes Yes 2. LLE ant -Time 16:22 15:32 15:21 -Correct Patient Yes Yes Yes -Correct Side, Site, Position Yes Yes Yes -Correct Procedure Yes Yes -Procedure Performed Yes Yes No -Type of Procedure Debridement Debridement -Clinical Debridement Subcutaneous Subcutaneous -Tissue Removed Subcutaneous Subcutaneous -Post Debridement (cm) - Length 2.5 2.0 1.5 -Post Debridement (cm) - Width 1.1 1.3 1.4 -Post Debridement (cm) - Depth 0.2 0.1 0.1 -Total Square (Post) (cm) 2.75 2.60 2.10 -Area of Debridement (cm) - Length 2.5 2.0 1.5 -Area of Debridement (cm) - Width 1.1 1.3 1.4 -Total Square (Area) (cm) 2.75 2.60 2.10 -Tunneling No No No -Undermining/Tunneling No No No -Circular Undermining No No No -Wound/Ulcer Outcome Not Healed Not Healed Not Healed -Ulcer Cleansing Rinsed/ Rinsed/ Rinsed/ Irrigated with Irrigated with Irrigated with Saline Saline Saline -Foul Odor after Cleansing No No No -Bioengineered Tissue No No No -Bleeding Controlled with Pressure Pressure Pressure -Treatment Response Procedure Procedure Procedure Tolerated Well Tolerated Well Tolerated Well -Offloading No -Debridement - Subq, 1st 20sq cm No No Pain Scale: 0-10 Numeric Is Patient Pain Free? No Yes No LLE -Description Aching -Intensity 6 -Duration (hours) Chronic -Pain Aggravating Factors Debridement -Alleviating Factors/Interventions Will continue to monitor, Emotional Support -Comments cetecaine used bilmax LE -Description Throbbing, Aching -Intensity 8 -Duration (hours) Chronic -Pain Behavior Guarding, Withdrawal from Touch -Pain Aggravating Factors Debridement -Alleviating Factors/Interventions Will continue to monitor, Emotional Support 07/30/24 15:23 Wound Center Nurse 2 #3 LLE INF -Time 15:23 -Correct Patient Yes -Correct Side, Site, Position Yes -Correct Procedure Yes -Procedure Performed Yes -Type of Procedure Debridement -Clinical Debridement Subcutaneous -Tissue Removed Subcutaneous -Post Debridement (cm) - Length 1.0 -Post Debridement (cm) - Width 1.1 -Post Debridement (cm) - Depth 0.1 -Total Square (Post) (cm) 1.10 -Area of Debridement (cm) - Length 1.0 -Area of Debridement (cm) - Width 1.1 -Total Square (Area) (cm) 1.10 -Tunneling No -Undermining/Tunneling No -Circular Undermining No -Wound/Ulcer Outcome Not Healed -Ulcer Cleansing Rinsed/ Irrigated with Saline -Foul Odor after Cleansing No -Bioengineered Tissue No -Bleeding Controlled with Pressure -Treatment Response Procedure Tolerated Well -Offloading No -Debridement - Subq, 1st 20sq cm Yes 2. LLE ant -Time 15:27 -Correct Patient Yes -Correct Side, Site, Position Yes -Correct Procedure No -Procedure Performed No -Type of Procedure -Clinical Debridement -Tissue Removed -Post Debridement (cm) - Length 0.5 -Post Debridement (cm) - Width 0.8 -Post Debridement (cm) - Depth 0.1 -Total Square (Post) (cm) 0.40 -Area of Debridement (cm) - Length -Area of Debridement (cm) - Width -Total Square (Area) (cm) -Tunneling No -Undermining/Tunneling No -Circular Undermining No -Wound/Ulcer Outcome -Ulcer Cleansing -Foul Odor after Cleansing No -Bioengineered Tissue No -Bleeding Controlled with NA -Treatment Response -Offloading -Debridement - Subq, 1st 20sq cm Pain Scale: 0-10 Numeric Is Patient Pain Free? Yes LLE -Description -Intensity -Duration (hours) -Pain Aggravating Factors -Alleviating Factors/Interventions -Comments bilat LE -Description -Intensity -Duration (hours) -Pain Behavior -Pain Aggravating Factors -Alleviating Factors/Interventions WC - Nurse 3 - General Ulcer D/C NN Start: 07/08/24 15:08 Freq: Status: Active Protocol: Activity Type Activity Date Activity User E-sign Co-sign Detail Recorded Client Recorded Date Recorded By Document 07/08/24 16:32 KW [id number] 07/08/24 16:33 KW Document 07/15/24 15:57 RB [id number] 07/15/24 15:58 RB Document 07/30/24 15:41 BM [id number] 07/30/24 15:42 BMF 07/08/24 07/15/24 07/30/24 16:32 15:57 15:41 Wound Care Center Nurse 3 #3 LLE INF -Ulcer Cleansing Rinsed/ Rinsed/ Irrigated with Irrigated with Saline Saline -Foul Odor after Cleansing No -Primary Dressing Applied Promogran, Promogran, Aquacel AG 4x4, Silicone Border Silicone Border Silicone Border Foam 4x4 Foam 4x4 Foam 4x4 -Aquacel AG 4x4 1 -Promogran 1 1 -Silicone Border Foam 4x4 1 1 1 -Wound Comment(s) drsg per kw production machinist 2. LLE ant -Ulcer Cleansing Rinsed/ Irrigated with Saline -Foul Odor after Cleansing No -Primary Dressing Applied Silicone Border Silicone Border Aquacel AG 4x4, Foam 4x4 Foam 4x4 Silicone Border Foam 4x4 -Other Dressing PROMOGRAN promogran -Aquacel AG 4x4 0 -Silicone Border Foam 4x4 1 1 1 -Wound Comment(s) drsg per kw production machinist LLE -Compression Wrap Aron Wrap Treatment Response Procedure Procedure Tolerated Well Tolerated Well Pain Scale: 0-10 Numeric Is Patient Pain Free? Yes Yes Yes WC - Visit Discharge Discharge Condition Stable Stable Stable Ambulatory Status Ambulatory Ambulatory Ambulatory Transportation Private Auto Private Auto Private Auto Medication Reconcilliation completed & No No provided to patient/care provider Clinical Summary of Care Provided Yes Yes Charges/Coding Procedures Integumentary [id number]: [id number] [place] subq tissue 20 sq cm/< Assessment/Plan Assessment/Plan (1) Non-pressure chronic ulcer of left lower leg with fat layer exposed: CODE(S): L97.922 - Non-pressure chronic ulcer of unspecified part of left lower leg with fat layer exposed (2) Traumatic open wound of left lower leg: CODE(S): S81.802A - Unspecified open wound, left lower leg, initial encounter QUALIFIERS: Encounter type: subsequent encounter Qualified Code(s): S81.802D - Unspecified open wound, left lower leg, subsequent encounter (3) Lumbar scoliosis: CODE(S): M41.9 - Scoliosis, unspecified QUALIFIERS: Scoliosis type: other secondary scoliosis Qualified Code(s): M41.56 - Other secondary scoliosis, lumbar region (4) Low back pain: CODE(S): M54.50 - Low back pain, unspecified (5) DDD (degenerative disc disease), lumbosacral: CODE(S): M51.37 - Other intervertebral disc degeneration, lumbosacral region (6) Hypothyroidism (acquired): CODE(S): E03.9 - Hypothyroidism, unspecified (7) Cataracts, bilateral: CODE(S): H26.9 - Unspecified cataract (8) History of tonsillectomy: CODE(S): Z90.89 - Acquired absence of other organs (9) History of IBS: CODE(S): Z87.19 - Personal history of other diseases of the digestive system (10) Former smoker: CODE(S): Z87.891 - Personal history of nicotine dependence (11) History of lumbar spinal fusion: CODE(S): Z98.1 - Arthrodesis status (12) History of hysterectomy: CODE(S): Z90.710 - Acquired absence of both cervix and uterus (13) History of cervical discectomy: CODE(S): Z98.890 - Other specified postprocedural states (14) History of total hip replacement: CODE(S): Z96.649 - Presence of unspecified artificial hip joint (15) Status post spinal disc removal: CODE(S): Z98.890 - Other specified postprocedural states PLAN: Plan This is a 74-year-old female who presented with traumatic wounds in both lower extremities. Although the patient does not relate significant swelling in her lower extremities, measures to prevent such swelling have been thoroughly discussed. The patient has been encouraged to elevate her lower extremities as much as possible. She has been advised to refrain from prolonged, idle sitting. Activity has been encouraged. The patient has been encouraged to optimize her nutritional intake. Her appetite is said to be recently depressed due to the recent loss of her . She has been provided samples of Frank, and encouraged to use a nutritional supplement on a daily basis until which time her appetite returns to normal. We are to continue the use of Aquacel Ag and [place] SAP topically to the wounds on a daily basis. The patient has been instructed on appropriate means of application. A wound culture, obtained 1 week ago, was negative for bacterial growth. A noninvasive lower extremity arterial study was performed on June 13, 2024, the results of which revealed no evidence of significant arterial occlusive disease in the lower extremities. The patient is to return for reevaluation in 1 week. Total time: 25 minutes
== END 2024-08-06 23:59 | disposition home or self-care (01) ==
LOC: WC 14:45
PROVIDERS: PCP Family Medicine Geriatric Medicine; Referring Provider Family Medicine Geriatric Medicine; Visit Provider Surgery
DX: L97.922 Non-pressure chronic ulcer of unspecified part of left lower leg with fat layer exposed (principal); Z98.1 Arthrodesis status; Z87.891 Personal history of nicotine dependence; E03.9 Hypothyroidism, unspecified; M51.370 Other intervertebral disc degeneration, lumbosacral region with discogenic back pain only; H26.9 Unspecified cataract; Z90.710 Acquired absence of both cervix and uterus; M41.56 Other secondary scoliosis, lumbar region; Z90.89 Acquired absence of other organs; S81.802D Unspecified open wound, left lower leg, subsequent encounter; Z87.19 Personal history of other diseases of the digestive system; Z96.649 Presence of unspecified artificial hip joint
CPT/HCPCS: 11042; 87070; 87075; 87205

== ENCOUNTER 2024-09-02 14:45 | Outpatient (RCR) | payer MEDICARE, OTHER, SELFPAY ==
[2024-08-07 00:09] VITALS: BP 145/69; PULSE 70; RESP 16; TEMP 36.1; BMI 19.7
[2024-08-13 14:49] VITALS: BP 134/74; PULSE 83; RESP 16; TEMP 36.6; BMI 19.7
--- NOTE | 2024-08-14 10:48 | WC ---
PHOTO 08/13/24 TRINA PERRY
--- NOTE | 2024-08-14 10:48 | WC ---
PHOTO 08/13/24 TRINA RUANO
--- NOTE | 2024-08-14 15:55 | PCM.WC.HP ---
History of Present Illness Date of Service: 08/13/24 Chief Complaint: Bilateral lower extremity traumatic wounds History of Wound: This is a 74-year-old female who presented with traumatic wounds to both lower extremities. The wounds were located on the pretibial surfaces bilaterally. The wound on the right pretibial surface occurred approximately 1 month prior to presentation, resulting when the patient bumped her leg against a trash bin. The wound had failed to heal appropriately. More recently, approximately 10 days prior to presentation, the patient dropped a box of spaghetti noodles onto the left pretibial surface, resulting in a wound which had failed to heal. The patient was seen by her primary care physician, Dr. Lundberg, 4 days prior to presentation, where a course of Keflex and doxycycline were initiated. The patient has completed her course of antibiotics. 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 The patient is mobile and active. She denies swelling in her legs. She sleeps on a flat surface at night. She denies a history of thrombophlebitis. The patient denies a history of congestive heart failure, myocardial infarction, diabetes mellitus, cerebrovascular accident, hypertension, renal disease, and pulmonary disease. She has a history of hypothyroidism. A limited venous duplex examination is noted to have been performed on October 26, 2022, examining only the right lower extremity, and revealing no evidence of thrombophlebitis. Valvular competence was not fully evaluated. [facility] Medical History Traumatic open wound of right lower leg Traumatic open wound of left lower leg Non-pressure chronic ulcer of left lower leg with fat layer exposed Non-pressure chronic ulcer of right lower leg with fat layer exposed Traumatic open wound of right lower leg with delayed healing Traumatic open wound of left lower leg with delayed healing Wears glasses Anxiety Alcohol use History of steroid therapy Easy bruising Back pain Injury of back Migraine headache Syncope History of IBS Former smoker Leg cramps History of edema History of stress test Cataracts, bilateral Arthritis Anemia Vitamin D deficiency, unspecified Hypothyroidism Home Medications ?Medication ?Instructions ?Recorded ?Last Taken ?Type lidocaine 5 % topical patch 2 patch topical DAILY 05/03/17 1 Day Ago History ~09/21/17 meloxicam 15 mg tablet 15 mg PO QDAY 05/03/17 09/22/17 History doxepin 10 mg capsule 10 mg PO QHS 12/16/19 Unknown History folic acid 400 mcg tablet 0.4 mg PO DAILY@0800 12/16/19 Unknown History linaclotide 145 mcg capsule 145 mcg PO DAILY 12/16/19 Unknown History estradiol 0.1 mg/24 hr semiweekly 2 patch transdermal MOTH 03/15/20 Unknown History transdermal patch (Bessie) acetaminophen 500 mg tablet 1,000 mg PO BID 01/06/22 Unknown History vitamin [id number] B1 100 mg-1 1 ml IM .QMO 01/06/22 Unknown History mg/mL intramuscular solution levothyroxine 50 mcg tablet 50 mcg PO DAILY 03/18/24 Unknown History gabapentin 100 mg capsule 100 mg PO BID 05/07/24 Unknown History loratadine 10 mg tablet 10 mg PO .prn 05/07/24 Unknown History sulfamethoxazole 800 1 tab PO Q12H #14 tabs 05/27/24 Unknown Rx mg-trimethoprim 160 mg tablet (Bactrim DS) cephalexin 500 mg capsule 500 mg PO 4X/DAY 07/08/24 Unknown History doxycycline hyclate 100 mg tablet 100 mg PO BID 07/08/24 Unknown History sulfamethoxazole 800 1 tab PO Q12H #14 tabs 07/08/24 Unknown Rx mg-trimethoprim 160 mg tablet (Bactrim DS) Allergy/AdvReac Type Severity Reaction Status Date / Time No Known Allergies Allergy Verified 05/07/24 11:09 Family History Mother Rheumatoid arthritis Father Pancreatic cancer Cancer Grandfather Myocardial infarction Grandmother Thyroid disorder Surgical History Status post spinal disc removal History of tonsillectomy History of lumbar spinal fusion History of total hip replacement History of hysterectomy History of cervical discectomy Social History household members: spouse Smoking Status: Never smoker alcohol intake: current alcohol intake frequency: a few times a week Alcohol type: wine substance use type: does not use what type of physical activity do you participate in: other details: physical therapy frequency: 1-2 times per week Vital Signs Vital Signs Vital Signs: Weight Weight: 101 lb Body Mass Index (BMI) 19.7 Physical Exam Const alert, oriented x3, no apparent distress, average body habitus and no limitations Constitutional Narrative: The patient's BMI is 19.7. She is of thin body habitus. General Appearance: cooperative, comfortable, well kempt and well developed Orientation / Consciousness: awake, oriented to person, oriented to place and oriented to time Exam Limitations: no limitations HEENT normocephalic, head/scalp atraumatic and hearing grossly normal bilaterally Head and Scalp: normal to inspection, normocephalic and atraumatic Face and Sinus: normal facial exam Nose: external nose normal External Ear: external ears normal Eyes EOMs intact bilaterally General Eye: normal appearance of both eyes Neck full ROM Resp normal respiratory effort, normal air movement, no retractions and no use of accessory muscles Effort and Inspection: able to speak in complete sentences Extremity no calf tenderness General Extremity: Negative for clubbing or cyanosis Skin Wound Narrative: The patient's lower extremities appear warm and well-perfused. Pedal pulses are easily palpable bilaterally. There is no significant swelling or edema in the patient's lower extremities. The wound on the right pretibial surface remains completely healed and epithelialized. A wound remains on the left pretibial surface. It is full-thickness in nature. There is a small amount of bioburden. Dimensions are documented elsewhere. The wound appears to demonstrate central epithelialization. Rossiter granulation tissue is noted at the periphery. There is a hint of maceration at the edge of the wound. Examination of the wound dressing revealed a large amount of exudate. The patient confirms that there has been a great deal of drainage from the wound in recent weeks. Wound margins are well beveled. A recent traumatic wound had been noted on the patient's left pretibial surface, superior to the original wound. However, at this juncture, it appears to be completely healed. Hair: normal Neuro oriented x3, CN's II-XII intact bilaterally, moves all extremities, no focal motor deficits and no sensory deficits noted Sensorium / Orientation: awake, alert, oriented to person, oriented to place and oriented to time Speech: speech normal Psych Appearance: grossly normal and appropriate Attitude: calm Activity / Motor Behavior: appropriate eye contact Speech: normal speech Mood & Affect: euthymic mood Thought Process: normal thought process Thought Content: normal thought content Attention / Concentration: attention grossly intact Debridement Note Debridement Note No debridement was completed: No debridement was completed today Post-Debridement Measurements and Additional Note: Post-Debridement Measurements/Treatment - Nurse 1 - General Ulcer Assessment Start: 08/13/24 14:49 Freq: Status: Active [facility] Activity Type Activity Date Activity User E-sign Co-sign Detail Recorded Client Recorded Date Recorded By Document 08/13/24 14:49 [facility] [id number] 08/13/24 14:54 [facility] 08/13/24 14:49 - Today's Visit Information Type of service Follow-up Visit (Physician/[employer] ) Arrival Mode Ambulatory Transfer Assistance None Patient Identification Verified (Name & Yes ) Patient Requires Transmission-Based No Precautions Height and Weight Body Mass Index (BMI) 19.7 BMI Classification Normal Vital Signs Temperature (97.8 F-99.1 F) 97.8 F Temperature Source Temporal Pulse Rate (60-100) 83 Pulse Location Monitor Respiratory Rate (12-18) 16 Respiratory rate source Observation Oxygen Delivery Method Room Air Blood Pressure (90/60-120/80) 134/74 H Blood Pressure Mean 94 Source Monitor Position Sitting Blood Pressure Location Left Arm History Since Last Visit- (Skip if this is Patient's initial visit) Have you changed medications since your No last visit? Any new allergies or adverse reactions No Had a fall/change in ADL's that may No increase risk of falls Signs or symptoms of abuse and/or No neglect since last visit Have you been in the hospital since your No last visit? Has dressing in place as prescribed Yes Has compression in place as prescribed N/A Has offloadiing in place as prescribed N/A Experienced any changes in pain level or No management Left Footwear Regular Shoe Right Footwear Regular Shoe Pain Scale: 0-10 Numeric Is Patient Pain Free? Yes - Nurse 1 - General Ulcer Measurement Start: 08/13/24 14:49 Freq: Status: Active Protocol: Activity Type Activity Date Activity User E-sign Co-sign Detail Recorded Client Recorded Date Recorded By Document 08/13/24 14:49 [facility] [id number] 08/13/24 14:54 [facility] 08/13/24 14:49 Wound Center Nurse 1 2. LLE ant -Combined with other wound No -Current Size (cm) - Length 0.1 -Current Size (cm) - Width 0.1 -Current Size (cm) - Depth 0.1 -Total Square Cm 0.01 -Date of Last Picture (Recall this 08/13/24 field) -Photo Taken Yes -Epithelialization Medium 34-66% -Tunneling No -Undermining/Tunneling No -Circular Undermining No -Exudate Amt Small -Exudate Type Serosanguineous -Wound Margin Distinct, Outline Attached -Granulation Amt Large (67-100%) -Granulation Quality Red -Slough/Fibrin No -Necrosis Amt None Present (0 %) -Texture (Joyce-wound Skin Appearance) Assessed -Moisture (Joyce-wound Skin Appearance) Assessed,Dry/ Scaly -Color (Joyce-wound Skin Appearance) Assessed -Temperature (Joyce-wound Skin No Abnormality Appearance) (Pt Warm) -Tenderness on Palpation (Joyce-wound No Skin Appearance) -Ulcer Cleansing Rinsed/ Irrigated with Saline -Foul Odor after Cleansing No -Anesthetic Used 5% Lidocaine Gel #3 LLE INF -Combined with other wound No -Current Size (cm) - Length 1 -Current Size (cm) - Width 1.1 -Current Size (cm) - Depth 0.1 -Total Square Cm 1.1 -Date of Last Picture (Recall this 08/13/24 field) -Photo Taken Yes -Tunneling No -Undermining/Tunneling No -Circular Undermining No -Exudate Amt Large -Exudate Type Serosanguineous -Wound Margin Flat & Intact -Granulation Amt Medium (34-66%) -Granulation Quality Rossiter -Slough/Fibrin Yes -Necrosis Amt Medium (34-66%) -Necrotic Tissue Type Adherent Slough -Texture (Joyce-wound Skin Appearance) Assessed -Moisture (Joyce-wound Skin Appearance) Assessed, Maceration -Color (Joyce-wound Skin Appearance) Assessed -Temperature (Joyce-wound Skin No Abnormality Appearance) (Pt Warm) -Tenderness on Palpation (Joyce-wound No Skin Appearance) -Ulcer Cleansing Rinsed/ Irrigated with Saline -Foul Odor after Cleansing No -Anesthetic Used 5% Lidocaine Gel WC - Nurse 2 - General Ulcer CM Notes Start: 08/13/24 14:49 Freq: Status: Active Protocol: Activity Type Activity Date Activity User E-sign Co-sign Detail Recorded Client Recorded Date Recorded By Document 08/13/24 15:09 [id number] 08/13/24 15:16 GM 08/13/24 15:09 Wound Center Nurse 2 2. LLE ant -Time 15:09 -Correct Patient Yes -Correct Side, Site, Position Yes -Correct Procedure No -Procedure Performed No -Wound/Ulcer Outcome Healed- Epithelialized -Ulcer Cleansing Not Cleansed -Foul Odor after Cleansing No -Bioengineered Tissue No -Bleeding Controlled with NA -Offloading No #3 LLE INF -Time 15:09 -Correct Patient Yes -Correct Side, Site, Position Yes -Correct Procedure No -Procedure Performed No -Wound/Ulcer Outcome Not Healed -Foul Odor after Cleansing No -Bioengineered Tissue No -Bleeding Controlled with NA Pain Scale: 0-10 Numeric Is Patient Pain Free? Yes - Nurse 3 - General Ulcer D/C NN Start: 08/13/24 14:49 Freq: Status: Active Protocol: Activity Type Activity Date Activity User E-sign Co-sign Detail Recorded Client Recorded Date Recorded By Document 08/13/24 15:23 DL [id number] 08/13/24 15:24 DL 08/13/24 15:23 Wound Care Center Nurse 3 2. LLE ant -Other Dressing No Dressing/ Healed -Wound Comment(s) Healed. #3 LLE INF -Ulcer Cleansing Rinsed/ Irrigated with Saline -Foul Odor after Cleansing No -Primary Dressing Applied Aquacel AG 4x4, Silicone Border Foam 4x4 -Aquacel AG 4x4 1 -Silicone Border Foam 4x4 1 LLE -Tubular Bandage Single Layer -Size of Tubigrip Used Size C -Size C ($) 1 Treatment Response Procedure Tolerated Well Pain Scale: 0-10 Numeric Is Patient Pain Free? Yes - Visit Discharge Discharge Condition Stable Ambulatory Status Ambulatory Transportation Private Auto Charges/Coding Visit Charges Office Visits / Consults: 04649 OV L3 Est 20min Assessment/Plan Assessment/Plan (1) Non-pressure chronic ulcer of left lower leg with fat layer exposed: CODE(S): L97.922 - Non-pressure chronic ulcer of unspecified part of left lower leg with fat layer exposed (2) Traumatic open wound of left lower leg: CODE(S): S81.802A - Unspecified open wound, left lower leg, initial encounter QUALIFIERS: Encounter type: subsequent encounter Qualified Code(s): S81.802D - Unspecified open wound, left lower leg, subsequent encounter (3) Lumbar scoliosis: CODE(S): M41.9 - Scoliosis, unspecified QUALIFIERS: Scoliosis type: other secondary scoliosis Qualified Code(s): M41.56 - Other secondary scoliosis, lumbar region (4) Low back pain: CODE(S): M54.50 - Low back pain, unspecified (5) DDD (degenerative disc disease), lumbosacral: CODE(S): M51.37 - Other intervertebral disc degeneration, lumbosacral region (6) Hypothyroidism (acquired): CODE(S): E03.9 - Hypothyroidism, unspecified (7) Cataracts, bilateral: CODE(S): H26.9 - Unspecified cataract (8) History of tonsillectomy: CODE(S): Z90.89 - Acquired absence of other organs (9) History of IBS: CODE(S): Z87.19 - Personal history of other diseases of the digestive system (10) Former smoker: CODE(S): Z87.891 - Personal history of nicotine dependence (11) History of lumbar spinal fusion: CODE(S): Z98.1 - Arthrodesis status (12) History of hysterectomy: CODE(S): Z90.710 - Acquired absence of both cervix and uterus (13) History of cervical discectomy: CODE(S): Z98.890 - Other specified postprocedural states (14) History of total hip replacement: CODE(S): Z96.649 - Presence of unspecified artificial hip joint (15) Status post spinal disc removal: CODE(S): Z98.890 - Other specified postprocedural states PLAN: Plan This is a 74-year-old female who presented with traumatic wounds in both lower extremities. Although the patient does not relate significant swelling in her lower extremities, measures to prevent such swelling have been thoroughly discussed. The patient has been encouraged to elevate her lower extremities as much as possible. She has been advised to refrain from prolonged, idle sitting. Activity has been encouraged. The patient has been encouraged to optimize her nutritional intake. Her appetite is said to be recently depressed due to the recent loss of her . She has been provided samples of Frank, and encouraged to use a nutritional supplement on a daily basis until which time her appetite returns to normal. The patient attests to the fact that her appetite has returned to normal. We are to continue the use of Aquacel and [place] SAP topically to the wounds on a daily basis. The patient has been instructed on appropriate means of application. The patient has been advised to change the wound dressing twice daily, as necessary, based upon the amount of drainage noted. A wound culture, recently obtained, was negative for bacterial growth. A noninvasive lower extremity arterial study was performed on June 13, 2024, the results of which revealed no evidence of significant arterial occlusive disease in the lower extremities. The patient is to return for reevaluation in 1 week. Total time: 24 minutes
[2024-08-19 15:10] VITALS: BP 156/70; PULSE 58; RESP 18; TEMP 35.8; BMI 19.7
--- NOTE | 2024-08-20 09:54 | WC ---
PHOTO 08/19/24 [facility] IN[facility].
--- NOTE | 2024-08-20 09:56 | WC ---
PHOTO 08/19/24 [facility] SUP
--- NOTE | 2024-08-20 18:10 | PCM.WC.HP ---
History of Present Illness Date of Service: 08/19/24 Chief Complaint: Bilateral lower extremity traumatic wounds History of Wound: This is a 74-year-old female who presented with traumatic wounds to both lower extremities. The wounds were located on the pretibial surfaces bilaterally. The wound on the right pretibial surface occurred approximately 1 month prior to presentation, resulting when the patient bumped her leg against a trash bin. The wound had failed to heal appropriately. More recently, approximately 10 days prior to presentation, the patient dropped a box of spaghetti noodles onto the left pretibial surface, resulting in a wound which had failed to heal. The patient was seen by her primary care physician, Dr. Lundberg, 4 days prior to presentation, where a course of Keflex and doxycycline were initiated. The patient has completed her course of antibiotics. 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 The patient is mobile and active. She denies swelling in her legs. She sleeps on a flat surface at night. She denies a history of thrombophlebitis. The patient denies a history of congestive heart failure, myocardial infarction, diabetes mellitus, cerebrovascular accident, hypertension, renal disease, and pulmonary disease. She has a history of hypothyroidism. A limited venous duplex examination is noted to have been performed on October 26, 2022, examining only the right lower extremity, and revealing no evidence of thrombophlebitis. Valvular competence was not fully evaluated. [facility] Medical History Traumatic open wound of right lower leg Traumatic open wound of left lower leg Non-pressure chronic ulcer of left lower leg with fat layer exposed Non-pressure chronic ulcer of right lower leg with fat layer exposed Traumatic open wound of right lower leg with delayed healing Traumatic open wound of left lower leg with delayed healing Wears glasses Anxiety Alcohol use History of steroid therapy Easy bruising Back pain Injury of back Migraine headache Syncope History of IBS Former smoker Leg cramps History of edema History of stress test Cataracts, bilateral Arthritis Anemia Vitamin D deficiency, unspecified Hypothyroidism Home Medications ?Medication ?Instructions ?Recorded ?Last Taken ?Type lidocaine 5 % topical patch 2 patch topical DAILY 05/03/17 1 Day Ago History ~09/21/17 meloxicam 15 mg tablet 15 mg PO QDAY 05/03/17 09/22/17 History doxepin 10 mg capsule 10 mg PO QHS 12/16/19 Unknown History folic acid 400 mcg tablet 0.4 mg PO DAILY@0800 12/16/19 Unknown History linaclotide 145 mcg capsule 145 mcg PO DAILY 12/16/19 Unknown History estradiol 0.1 mg/24 hr semiweekly 2 patch transdermal MOTH 03/15/20 Unknown History transdermal patch (Bessie) acetaminophen 500 mg tablet 1,000 mg PO BID 01/06/22 Unknown History vitamin [id number] B1 100 mg-1 1 ml IM .QMO 01/06/22 Unknown History mg/mL intramuscular solution levothyroxine 50 mcg tablet 50 mcg PO DAILY 03/18/24 Unknown History gabapentin 100 mg capsule 100 mg PO BID 05/07/24 Unknown History loratadine 10 mg tablet 10 mg PO .prn 05/07/24 Unknown History sulfamethoxazole 800 1 tab PO Q12H #14 tabs 05/27/24 Unknown Rx mg-trimethoprim 160 mg tablet (Bactrim DS) cephalexin 500 mg capsule 500 mg PO 4X/DAY 07/08/24 Unknown History doxycycline hyclate 100 mg tablet 100 mg PO BID 07/08/24 Unknown History sulfamethoxazole 800 1 tab PO Q12H #14 tabs 07/08/24 Unknown Rx mg-trimethoprim 160 mg tablet (Bactrim DS) Allergy/AdvReac Type Severity Reaction Status Date / Time No Known Allergies Allergy Verified 05/07/24 11:09 Family History Mother Rheumatoid arthritis Father Pancreatic cancer Cancer Grandfather Myocardial infarction Grandmother Thyroid disorder Surgical History Status post spinal disc removal History of tonsillectomy History of lumbar spinal fusion History of total hip replacement History of hysterectomy History of cervical discectomy Social History household members: spouse Smoking Status: Never smoker alcohol intake: current alcohol intake frequency: a few times a week Alcohol type: wine substance use type: does not use what type of physical activity do you participate in: other details: physical therapy frequency: 1-2 times per week Vital Signs Vital Signs Vital Signs: Weight Weight: 101 lb Body Mass Index (BMI) 19.7 Physical Exam Const alert, oriented x3, no apparent distress, average body habitus and no limitations Constitutional Narrative: The patient's BMI is 19.7. She is of thin body habitus. General Appearance: cooperative, comfortable, well kempt and well developed Orientation / Consciousness: awake, oriented to person, oriented to place and oriented to time Exam Limitations: no limitations HEENT normocephalic, head/scalp atraumatic and hearing grossly normal bilaterally Head and Scalp: normal to inspection, normocephalic and atraumatic Face and Sinus: normal facial exam Nose: external nose normal External Ear: external ears normal Eyes EOMs intact bilaterally General Eye: normal appearance of both eyes Neck full ROM Resp normal respiratory effort, normal air movement, no retractions and no use of accessory muscles Effort and Inspection: able to speak in complete sentences Extremity no calf tenderness General Extremity: Negative for clubbing or cyanosis Skin Wound Narrative: The patient's lower extremities appear warm and well-perfused. Pedal pulses are easily palpable bilaterally. Visually, there is no significant swelling or edema in the patient's lower extremities. However, closer examination reveals 1+ pitting edema in the left lower extremity. The wound on the right pretibial surface remains completely healed and epithelialized. A wound remains on the left pretibial surface. It is full-thickness in nature. There is a small amount of bioburden. Dimensions are documented elsewhere. The wound appears to demonstrate central epithelialization. Agnew granulation tissue is noted at the periphery. There has been no significant change in appearance within the last several weeks. The wound continues to be highly exudative, with a great deal of drainage. The patient confirms that there has been a great deal of drainage from the wound in recent weeks. Wound margins are well beveled. The more recent, satellite wound on the left pretibial surface is now completely healed and epithelialized. Hair: normal Neuro oriented x3, CN's II-XII intact bilaterally, moves all extremities, no focal motor deficits and no sensory deficits noted Sensorium / Orientation: awake, alert, oriented to person, oriented to place and oriented to time Speech: speech normal Psych Appearance: grossly normal and appropriate Attitude: calm Activity / Motor Behavior: appropriate eye contact Speech: normal speech Mood & Affect: euthymic mood Thought Process: normal thought process Thought Content: normal thought content Attention / Concentration: attention grossly intact Debridement Note Debridement Note Wound debrided: Left pretibial wound Laterality: Left Type of Debridement: Excisional debridement Anesthesia Used: 5% Lidocaine Gel and Cetacaine Depth: Down to and including healthy tissue and in the subcutaneous layer Percentage of wound debrided: 100 Instrument Used: 3mm curette Tissue Removed: Bioburden and nonviable tissue Severity: Fat Layer Exposed Amount of bleeding with debridement: Mild Bleeding Controlled with: Compression and gauze Patient tolerated procedure: Patient tolerated procedure well Post-Debridement Measurements and Additional Note: Post-Debridement Measurements/Treatment - Nurse 1 - General Ulcer Assessment Start: 08/13/24 14:49 Freq: Status: Active Protocol: [employer] Activity Type Activity Date Activity User E-sign Co-sign Detail Recorded Client Recorded Date Recorded By Document 08/13/24 14:49 [facility] [id number] 08/13/24 14:54 [facility] Document 08/19/24 15:10 [id number] 08/19/24 15:13 08/13/24 08/19/24 14:49 15:10 - Today's Visit Information Type of service Follow-up Visit Follow-up Visit (Physician/DIETARY TECH (Physician/DIETARY TECH ) ) Arrival Mode Ambulatory Ambulatory Transfer Assistance None None Patient Identification Verified (Name & Yes Yes ) Patient Requires Transmission-Based No No Precautions Height and Weight Body Mass Index (BMI) 19.7 19.7 BMI Classification Normal Normal Vital Signs Temperature (97.8 F-99.1 F) 97.8 F 96.4 F L Temperature Source Temporal Temporal Pulse Rate (60-100) 83 58 L Pulse Location Monitor Monitor Respiratory Rate (12-18) 16 18 Respiratory rate source Observation Observation Oxygen Delivery Method Room Air Blood Pressure (90/60-120/80) 134/74 H 156/70 H Blood Pressure Mean 94 98 Source Monitor Monitor Position Sitting Semi-Fowlers Blood Pressure Location Left Arm Left Arm History Since Last Visit- (Skip if this is Patient's initial visit) Have you changed medications since your No No last visit? Any new allergies or adverse reactions No No Had a fall/change in ADL's that may No No increase risk of falls Signs or symptoms of abuse and/or No No neglect since last visit Have you been in the hospital since your No No last visit? Has dressing in place as prescribed Yes Yes Has compression in place as prescribed N/A Yes Has offloadiing in place as prescribed N/A N/A Experienced any changes in pain level or No No management Left Footwear Regular Shoe Right Footwear Regular Shoe Pain Scale: 0-10 Numeric Is Patient Pain Free? Yes No LLE -Description Sharp,Dull, Throbbing, Burning, Crushing, Tightness, Aching,Cramping ,Pressure -Intensity 3 -Duration (hours) Acute -Pain Behavior Guarding -Pain Aggravating Factors Exercise/ Activity -Alleviating Factors/Interventions Medication -Effectiveness of Alleviating Factor/ Moderately Intervention effective WC - Nurse 1 - General Ulcer Measurement Start: 08/13/24 14:49 Freq: Status: Active Protocol: Activity Type Activity Date Activity User E-sign Co-sign Detail Recorded Client Recorded Date Recorded By Document 08/13/24 14:49 [facility] [id number] 08/13/24 14:54 [facility] Document 08/19/24 15:10 RB [id number] 08/19/24 15:13 RB 08/13/24 08/19/24 14:49 15:10 Wound Center Nurse 1 2. LLE ant -Combined with other wound No -Current Size (cm) - Length 0.1 -Current Size (cm) - Width 0.1 -Current Size (cm) - Depth 0.1 -Total Square Cm 0.01 -Date of Last Picture (Recall this 08/13/24 field) -Photo Taken Yes -Epithelialization Medium 34-66% -Tunneling No -Undermining/Tunneling No -Circular Undermining No -Exudate Amt Small -Exudate Type Serosanguineous -Wound Margin Distinct, Outline Attached -Granulation Amt Large (67-100%) -Granulation Quality Red -Slough/Fibrin No -Necrosis Amt None Present (0 %) -Texture (Joyce-wound Skin Appearance) Assessed -Moisture (Joyce-wound Skin Appearance) Assessed,Dry/ Scaly -Color (Joyce-wound Skin Appearance) Assessed -Temperature (Joyce-wound Skin No Abnormality Appearance) (Pt Warm) -Tenderness on Palpation (Joyce-wound No Skin Appearance) -Ulcer Cleansing Rinsed/ Irrigated with Saline -Foul Odor after Cleansing No -Anesthetic Used 5% Lidocaine Gel #3 LLE INF -Combined with other wound No No -Current Size (cm) - Length 1 1 -Current Size (cm) - Width 1.1 1.4 -Current Size (cm) - Depth 0.1 0.1 -Total Square Cm 1.1 1.4 -Date of Last Picture (Recall this 08/13/24 field) -Photo Taken Yes Yes -Tunneling No No -Undermining/Tunneling No No -Circular Undermining No No -Exudate Amt Large Medium -Exudate Type Serosanguineous Serosanguineous -Wound Margin Flat & Intact Distinct, Outline Attached -Granulation Amt Medium (34-66%) Medium (34-66%) -Granulation Quality Agnew Agnew -Slough/Fibrin Yes Yes -Necrosis Amt Medium (34-66%) None Present (0 %) -Necrotic Tissue Type Adherent Slough Adherent Slough -Structure Exposed N/A -Texture (Joyce-wound Skin Appearance) Assessed Assessed, Localized Edema -Moisture (Joyce-wound Skin Appearance) Assessed, Assessed Maceration -Color (Joyce-wound Skin Appearance) Assessed Assessed -Temperature (Joyce-wound Skin No Abnormality No Abnormality Appearance) (Pt Warm) (Pt Warm) -Tenderness on Palpation (Joyce-wound No No Skin Appearance) -Ulcer Cleansing Rinsed/ Wound Cleanser Irrigated with Saline -Foul Odor after Cleansing No No -Anesthetic Used 5% Lidocaine 5% Lidocaine Gel Gel Lower Limb Edema Present Yes Left Calf (cm) 27.7 Left Ankle (cm) 17.2 WC - Nurse 2 - General Ulcer CM Notes Start: 08/13/24 14:49 Freq: Status: Active Protocol: Activity Type Activity Date Activity User E-sign Co-sign Detail Recorded Client Recorded Date Recorded By Document 08/13/24 15:09 [id number] 08/13/24 15:16 Document 08/19/24 15:24 [id number] 08/19/24 15:30 08/13/24 08/19/24 15:09 15:24 Wound Center Nurse 2 2. LLE ant -Time 15:09 -Correct Patient Yes -Correct Side, Site, Position Yes -Correct Procedure No -Procedure Performed No -Wound/Ulcer Outcome Healed- Epithelialized -Ulcer Cleansing Not Cleansed -Foul Odor after Cleansing No -Bioengineered Tissue No -Bleeding Controlled with NA -Offloading No #3 LLE INF -Time 15:09 15:27 -Correct Patient Yes Yes -Correct Side, Site, Position Yes Yes -Correct Procedure No Yes -Procedure Performed No Yes -Type of Procedure Debridement -Clinical Debridement Subcutaneous -Tissue Removed Subcutaneous -Post Debridement (cm) - Length 1.2 -Post Debridement (cm) - Width 1.3 -Post Debridement (cm) - Depth 0.1 -Total Square (Post) (cm) 1.56 -Area of Debridement (cm) - Length 1.2 -Area of Debridement (cm) - Width 1.3 -Total Square (Area) (cm) 1.56 -Tunneling No -Undermining/Tunneling No -Circular Undermining No -Wound/Ulcer Outcome Not Healed Not Healed -Ulcer Cleansing Rinsed/ Irrigated with Saline -Foul Odor after Cleansing No No -Bioengineered Tissue No No -Bleeding Controlled with NA Pressure -Treatment Response Procedure Tolerated Well -Offloading No -Debridement - Subq, 1st 20sq cm Yes Pain Scale: 0-10 Numeric Is Patient Pain Free? Yes Yes - Nurse 3 - General Ulcer D/C NN Start: 08/13/24 14:49 Freq: Status: Active Protocol: Activity Type Activity Date Activity User E-sign Co-sign Detail Recorded Client Recorded Date Recorded By Document 08/13/24 15:23 DL [id number] 08/13/24 15:24 DL Document 08/19/24 15:42 RB [id number] 08/19/24 15:43 RB 08/13/24 08/19/24 15:23 15:42 Wound Care Center Nurse 3 2. LLE ant -Other Dressing No Dressing/ Healed -Wound Comment(s) Healed. #3 LLE INF -Ulcer Cleansing Rinsed/ Rinsed/ Irrigated with Irrigated with Saline Saline -Foul Odor after Cleansing No -Primary Dressing Applied Aquacel AG 4x4, Aquacel Extra, Silicone Border Silicone Border Foam 4x4 Foam 4x4 -Aquacel Extra 1 -Aquacel AG 4x4 1 -Silicone Border Foam 4x4 1 1 LLE -Tubular Bandage Single Layer Single Layer -Size of Tubigrip Used Size C Size B -Size B ($) 1 -Size C ($) 1 Treatment Response Procedure Procedure Tolerated Well Tolerated Well Pain Scale: 0-10 Numeric Is Patient Pain Free? Yes Yes WC - Visit Discharge Discharge Condition Stable Stable Ambulatory Status Ambulatory Ambulatory Transportation Private Auto Private Auto Medication Reconcilliation completed & No provided to patient/care provider Clinical Summary of Care Provided Yes Charges/Coding Procedures Integumentary [id number]: [id number] [place] subq tissue 20 sq cm/< Assessment/Plan Assessment/Plan (1) Non-pressure chronic ulcer of left lower leg with fat layer exposed: CODE(S): L97.922 - Non-pressure chronic ulcer of unspecified part of left lower leg with fat layer exposed (2) Traumatic open wound of left lower leg: CODE(S): S81.802A - Unspecified open wound, left lower leg, initial encounter QUALIFIERS: Encounter type: subsequent encounter Qualified Code(s): S81.802D - Unspecified open wound, left lower leg, subsequent encounter (3) Lumbar scoliosis: CODE(S): M41.9 - Scoliosis, unspecified QUALIFIERS: Scoliosis type: other secondary scoliosis Qualified Code(s): M41.56 - Other secondary scoliosis, lumbar region (4) Low back pain: CODE(S): M54.50 - Low back pain, unspecified (5) DDD (degenerative disc disease), lumbosacral: CODE(S): M51.37 - Other intervertebral disc degeneration, lumbosacral region (6) Hypothyroidism (acquired): CODE(S): E03.9 - Hypothyroidism, unspecified (7) Cataracts, bilateral: CODE(S): H26.9 - Unspecified cataract (8) History of tonsillectomy: CODE(S): Z90.89 - Acquired absence of other organs (9) History of IBS: CODE(S): Z87.19 - Personal history of other diseases of the digestive system (10) Former smoker: CODE(S): Z87.891 - Personal history of nicotine dependence (11) History of lumbar spinal fusion: CODE(S): Z98.1 - Arthrodesis status (12) History of hysterectomy: CODE(S): Z90.710 - Acquired absence of both cervix and uterus (13) History of cervical discectomy: CODE(S): Z98.890 - Other specified postprocedural states (14) History of total hip replacement: CODE(S): Z96.649 - Presence of unspecified artificial hip joint (15) Status post spinal disc removal: CODE(S): Z98.890 - Other specified postprocedural states PLAN: Plan This is a 74-year-old female who presented with traumatic wounds in both lower extremities. Although the patient does not relate significant swelling in her lower extremities, measures to prevent such swelling have been thoroughly discussed. The patient has been encouraged to elevate her lower extremities as much as possible. She has been advised to refrain from prolonged, idle sitting. Activity has been encouraged. The patient has been encouraged to optimize her nutritional intake. Her appetite is said to be recently depressed due to the recent loss of her . She had been provided samples of Frank, and encouraged to use a nutritional supplement on a daily basis until which time her appetite returns to normal. The patient attests to the fact that her appetite has returned to normal, and she is consuming a well-balanced diet. We are to continue the use of Aquacel and [place] SAP topically to the left pretibial wound on a daily basis. The patient has been instructed on appropriate means of application. The patient has been advised to change the wound dressing once or twice daily, as necessary, based upon the amount of drainage noted. A wound culture, recently obtained, was negative for bacterial growth. A noninvasive lower extremity arterial study was performed on June 13, 2024, the results of which revealed no evidence of significant arterial occlusive disease in the lower extremities. Because of the pitting edema noted by examination, and the large amount of exudative drainage, we are to enhance the degree of compression to the left lower extremity by means of a smaller Tubigrip, which will be donned on a daily basis. The patient is to return for reevaluation in 1 week. Total time: 25 minutes
[2024-08-28 14:57] VITALS: BP 119/78; PULSE 68; RESP 18; TEMP 36.3; BMI 19.7
--- NOTE | 2024-08-29 12:26 | WC ---
PHOTO 08/28/24 [facility]
--- NOTE | 2024-08-29 13:01 | PCM.WC.HP ---
History of Present Illness Date of Service: 08/28/24 Chief Complaint: Bilateral lower extremity traumatic wounds History of Wound: This is a 74-year-old female who presented with traumatic wounds to both lower extremities. The wounds were located on the pretibial surfaces bilaterally. The wound on the right pretibial surface occurred approximately 1 month prior to presentation, resulting when the patient bumped her leg against a trash bin. The wound had failed to heal appropriately. More recently, approximately 10 days prior to presentation, the patient dropped a box of spaghetti noodles onto the left pretibial surface, resulting in a wound which had failed to heal. The patient was seen by her primary care physician, Dr. Lundberg, 4 days prior to presentation, where a course of Keflex and doxycycline were initiated. The patient has completed her course of antibiotics. 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 The patient is mobile and active. She denies swelling in her legs. She sleeps on a flat surface at night. She denies a history of thrombophlebitis. The patient denies a history of congestive heart failure, myocardial infarction, diabetes mellitus, cerebrovascular accident, hypertension, renal disease, and pulmonary disease. She has a history of hypothyroidism. A limited venous duplex examination is noted to have been performed on October 26, 2022, examining only the right lower extremity, and revealing no evidence of thrombophlebitis. Valvular competence was not fully evaluated. [facility] Medical History Traumatic open wound of right lower leg Traumatic open wound of left lower leg Non-pressure chronic ulcer of left lower leg with fat layer exposed Non-pressure chronic ulcer of right lower leg with fat layer exposed Traumatic open wound of right lower leg with delayed healing Traumatic open wound of left lower leg with delayed healing Wears glasses Anxiety Alcohol use History of steroid therapy Easy bruising Back pain Injury of back Migraine headache Syncope History of IBS Former smoker Leg cramps History of edema History of stress test Cataracts, bilateral Arthritis Anemia Vitamin D deficiency, unspecified Hypothyroidism Home Medications ?Medication ?Instructions ?Recorded ?Last Taken ?Type lidocaine 5 % topical patch 2 patch topical DAILY 05/03/17 1 Day Ago History ~09/21/17 meloxicam 15 mg tablet 15 mg PO QDAY 05/03/17 09/22/17 History doxepin 10 mg capsule 10 mg PO QHS 12/16/19 Unknown History folic acid 400 mcg tablet 0.4 mg PO DAILY@0800 12/16/19 Unknown History linaclotide 145 mcg capsule 145 mcg PO DAILY 12/16/19 Unknown History estradiol 0.1 mg/24 hr semiweekly 2 patch transdermal MOTH 03/15/20 Unknown History transdermal patch (Bessie) acetaminophen 500 mg tablet 1,000 mg PO BID 01/06/22 Unknown History vitamin [id number] B1 100 mg-1 1 ml IM .QMO 01/06/22 Unknown History mg/mL intramuscular solution levothyroxine 50 mcg tablet 50 mcg PO DAILY 03/18/24 Unknown History gabapentin 100 mg capsule 100 mg PO BID 05/07/24 Unknown History loratadine 10 mg tablet 10 mg PO .prn 05/07/24 Unknown History sulfamethoxazole 800 1 tab PO Q12H #14 tabs 05/27/24 Unknown Rx mg-trimethoprim 160 mg tablet (Bactrim DS) cephalexin 500 mg capsule 500 mg PO 4X/DAY 07/08/24 Unknown History doxycycline hyclate 100 mg tablet 100 mg PO BID 07/08/24 Unknown History sulfamethoxazole 800 1 tab PO Q12H #14 tabs 07/08/24 Unknown Rx mg-trimethoprim 160 mg tablet (Bactrim DS) Allergy/AdvReac Type Severity Reaction Status Date / Time No Known Allergies Allergy Verified 05/07/24 11:09 Family History Mother Rheumatoid arthritis Father Pancreatic cancer Cancer Grandfather Myocardial infarction Grandmother Thyroid disorder Surgical History Status post spinal disc removal History of tonsillectomy History of lumbar spinal fusion History of total hip replacement History of hysterectomy History of cervical discectomy Social History household members: spouse Smoking Status: Never smoker alcohol intake: current alcohol intake frequency: a few times a week Alcohol type: wine substance use type: does not use what type of physical activity do you participate in: other details: physical therapy frequency: 1-2 times per week Vital Signs Vital Signs Vital Signs: 08/28/24 14:57 Temperature 97.4 F L Temperature Source Temporal Pulse Rate 68 Respiratory Rate 18 Blood Pressure 119/78 Blood Pressure Mean 91 Blood Pressure Source Monitor Blood Pressure Position Semi-Fowlers Blood Pressure Location Left Arm Weight Weight: 101 lb Body Mass Index (BMI) 19.7 Physical Exam Const alert, oriented x3, no apparent distress, average body habitus and no limitations Constitutional Narrative: The patient's BMI is 19.7. She is of thin body habitus. General Appearance: cooperative, comfortable, well kempt and well developed Orientation / Consciousness: awake, oriented to person, oriented to place and oriented to time Exam Limitations: no limitations HEENT normocephalic, head/scalp atraumatic and hearing grossly normal bilaterally Head and Scalp: normal to inspection, normocephalic and atraumatic Face and Sinus: normal facial exam Nose: external nose normal External Ear: external ears normal Eyes EOMs intact bilaterally General Eye: normal appearance of both eyes Neck full ROM Resp normal respiratory effort, normal air movement, no retractions and no use of accessory muscles Effort and Inspection: able to speak in complete sentences Extremity no calf tenderness General Extremity: Negative for clubbing or cyanosis Skin Wound Narrative: The patient's lower extremities appear warm and well-perfused. Pedal pulses are easily palpable bilaterally. Visually, there is no significant swelling or edema in the patient's lower extremities. However, closer examination reveals 1+ pitting edema in the left lower extremity. The wound on the right pretibial surface remains completely healed and epithelialized. A wound remains on the left pretibial surface. It is full-thickness in nature. There is a small amount of bioburden. Dimensions are documented elsewhere. The wound appears to demonstrate central epithelialization. Milmay granulation tissue is noted at the periphery. There has been no significant change in appearance within the last several weeks. The wound continues to be highly exudative, with a great deal of drainage. The patient confirms that there has been a great deal of drainage from the wound in recent weeks. Wound margins are well beveled. A new wound now exists on the left lateral calf, the result of an inadvertent injury while doffing the patient's Tubigrip compression garment within the last week. As result, there is now a new superficial ulceration on the left lateral calf, a portion of which is a well adherent avulsion flap, which currently appears largely viable. Dimensions are documented elsewhere. There is no sign of infection or cellulitis. Hair: normal Neuro oriented x3, CN's II-XII intact bilaterally, moves all extremities, no focal motor deficits and no sensory deficits noted Sensorium / Orientation: awake, alert, oriented to person, oriented to place and oriented to time Speech: speech normal Psych Appearance: grossly normal and appropriate Attitude: calm Activity / Motor Behavior: appropriate eye contact Speech: normal speech Mood & Affect: euthymic mood Thought Process: normal thought process Thought Content: normal thought content Attention / Concentration: attention grossly intact Debridement Note Debridement Note Wound debrided: Left pretibial wound Laterality: Left Type of Debridement: Excisional debridement Anesthesia Used: 5% Lidocaine Gel and Cetacaine Depth: Down to and including healthy tissue and in the subcutaneous layer Percentage of wound debrided: 100 Instrument Used: 3mm curette Tissue Removed: Bioburden and nonviable tissue Severity: Fat Layer Exposed Amount of bleeding with debridement: Mild Bleeding Controlled with: Compression and gauze Patient tolerated procedure: Patient tolerated procedure well Post-Debridement Measurements and Additional Note: Post-Debridement Measurements/Treatment - Nurse 1 - General Ulcer Assessment Start: 08/13/24 14:49 Freq: Status: Active Protocol: .AIMEE Activity Type Activity Date Activity User E-sign Co-sign Detail Recorded Client Recorded Date Recorded By Document 08/13/24 14:49 [facility] [id number] 08/13/24 14:54 [facility] Document 08/19/24 15:10 [id number] 08/19/24 15:13 RB Document 08/28/24 14:57 [id number] 08/28/24 15:09 08/13/24 08/19/24 08/28/24 14:49 15:10 14:57 - Today's Visit Information Type of service Follow-up Visit Follow-up Visit Follow-up Visit (Physician/CLINICAL EDUCATION MANAGER (Physician/CLINICAL EDUCATION MANAGER (Physician/CLINICAL EDUCATION MANAGER ) ) ) Arrival Mode Ambulatory Ambulatory Ambulatory Transfer Assistance None None None Patient Identification Verified (Name & Yes Yes Yes ) Patient Requires Transmission-Based No No No Precautions Height and Weight Body Mass Index (BMI) 19.7 19.7 19.7 BMI Classification Normal Normal Normal Vital Signs Temperature (97.8 F-99.1 F) 97.8 F 96.4 F L 97.4 F L Temperature Source Temporal Temporal Temporal Pulse Rate (60-100) 83 58 L 68 Pulse Location Monitor Monitor Monitor Respiratory Rate (12-18) 16 18 18 Respiratory rate source Observation Observation Observation Oxygen Delivery Method Room Air Blood Pressure (90/60-120/80) 134/74 H 156/70 H 119/78 Blood Pressure Mean 94 98 91 Source Monitor Monitor Monitor Position Sitting Semi-Fowlers Semi-Fowlers Blood Pressure Location Left Arm Left Arm Left Arm History Since Last Visit- (Skip if this is Patient's initial visit) Have you changed medications since your No No No last visit? Any new allergies or adverse reactions No No No Had a fall/change in ADL's that may No No No increase risk of falls Signs or symptoms of abuse and/or No No No neglect since last visit Have you been in the hospital since your No No No last visit? Has dressing in place as prescribed Yes Yes Yes Has compression in place as prescribed N/A Yes Yes Has offloadiing in place as prescribed N/A N/A N/A Experienced any changes in pain level or No No No management Left Footwear Regular Shoe Regular Shoe Right Footwear Regular Shoe Regular Shoe Pain Scale: 0-10 Numeric Is Patient Pain Free? Yes No No LLE -Description Sharp,Dull, Aching Throbbing, Burning, Crushing, Tightness, Aching,Cramping ,Pressure -Intensity 3 2 -Duration (hours) Acute Acute -Pain Behavior Guarding Withdrawal from Touch -Pain Aggravating Factors Exercise/ Exercise/ Activity Activity -Alleviating Factors/Interventions Medication Medication -Effectiveness of Alleviating Factor/ Moderately Minimally Intervention effective effective -Comments pt states when she removed size B tubigrip last week the skin on her thomason stuck and tore when removing tubigrip WC - Nurse 1 - General Ulcer Measurement Start: 08/13/24 14:49 Freq: Status: Active Protocol: Activity Type Activity Date Activity User E-sign Co-sign Detail Recorded Client Recorded Date Recorded By Document 08/13/24 14:49 BMF [id number] 08/13/24 14:54 BMF Document 08/19/24 15:10 RB [id number] 08/19/24 15:13 RB Document 08/28/24 14:57 RB [id number] 08/28/24 15:09 RB 08/13/24 08/19/24 08/28/24 14:49 15:10 14:57 Wound Center Nurse 1 2. LLE ant -Combined with other wound No -Current Size (cm) - Length 0.1 -Current Size (cm) - Width 0.1 -Current Size (cm) - Depth 0.1 -Total Square Cm 0.01 -Date of Last Picture (Recall this 08/13/24 field) -Photo Taken Yes -Epithelialization Medium 34-66% -Tunneling No -Undermining/Tunneling No -Circular Undermining No -Exudate Amt Small -Exudate Type Serosanguineous -Wound Margin Distinct, Outline Attached -Granulation Amt Large (67-100%) -Granulation Quality Red -Slough/Fibrin No -Necrosis Amt None Present (0 %) -Texture (Joyce-wound Skin Appearance) Assessed -Moisture (Joyce-wound Skin Appearance) Assessed,Dry/ Scaly -Color (Joyce-wound Skin Appearance) Assessed -Temperature (Joyce-wound Skin No Abnormality Appearance) (Pt Warm) -Tenderness on Palpation (Joyce-wound No Skin Appearance) -Ulcer Cleansing Rinsed/ Irrigated with Saline -Foul Odor after Cleansing No -Anesthetic Used 5% Lidocaine Gel 4. L thomason superior -Combined with other wound No -Current Size (cm) - Length 1.5 -Current Size (cm) - Width 1.1 -Current Size (cm) - Depth 0.1 -Total Square Cm 1.65 -Photo Taken Yes -Tunneling No -Undermining/Tunneling No -Circular Undermining No -Exudate Amt Medium -Exudate Type Serosanguineous -Wound Margin Distinct, Outline Attached -Granulation Amt Medium (34-66%) -Granulation Quality Milmay -Slough/Fibrin Yes -Necrosis Amt Small (1-33%) -Necrotic Tissue Type Adherent Slough -Structure Exposed N/A -Texture (Joyce-wound Skin Appearance) Assessed, Excoriation -Moisture (Joyce-wound Skin Appearance) Assessed -Color (Joyce-wound Skin Appearance) Assessed -Temperature (Joyce-wound Skin No Abnormality Appearance) (Pt Warm) -Tenderness on Palpation (Joyce-wound No Skin Appearance) -Ulcer Cleansing Wound Cleanser -Foul Odor after Cleansing No -Anesthetic Used 4% Lidocaine Solution #3 LLE INF -Combined with other wound No No No -Current Size (cm) - Length 1 1 0.6 -Current Size (cm) - Width 1.1 1.4 0.8 -Current Size (cm) - Depth 0.1 0.1 0.1 -Total Square Cm 1.1 1.4 0.48 -Date of Last Picture (Recall this 08/13/24 field) -Photo Taken Yes Yes Yes -Tunneling No No No -Undermining/Tunneling No No No -Circular Undermining No No No -Exudate Amt Large Medium Medium -Exudate Type Serosanguineous Serosanguineous Serosanguineous -Wound Margin Flat & Intact Distinct, Distinct, Outline Outline Attached Attached -Granulation Amt Medium (34-66%) Medium (34-66%) Medium (34-66%) -Granulation Quality Milmay Milmay Milmay -Slough/Fibrin Yes Yes Yes -Necrosis Amt Medium (34-66%) None Present (0 Medium (34-66%) %) -Necrotic Tissue Type Adherent Slough Adherent Slough Adherent Slough -Structure Exposed N/A N/A -Texture (Joyce-wound Skin Appearance) Assessed Assessed, Assessed, Localized Edema Friable -Moisture (Joyce-wound Skin Appearance) Assessed, Assessed Assessed Maceration -Color (Joyce-wound Skin Appearance) Assessed Assessed Assessed -Temperature (Joyce-wound Skin No Abnormality No Abnormality No Abnormality Appearance) (Pt Warm) (Pt Warm) (Pt Warm) -Tenderness on Palpation (Joyce-wound No No No Skin Appearance) -Ulcer Cleansing Rinsed/ Wound Cleanser Wound Cleanser Irrigated with Saline -Foul Odor after Cleansing No No No -Anesthetic Used 5% Lidocaine 5% Lidocaine 4% Lidocaine Gel Gel Solution Lower Limb Edema Present Yes Yes Left Calf (cm) 27.7 28.2 Left Ankle (cm) 17.2 18 WC - Nurse 2 - General Ulcer CM Notes Start: 08/13/24 14:49 Freq: Status: Active Protocol: Activity Type Activity Date Activity User E-sign Co-sign Detail Recorded Client Recorded Date Recorded By Document 08/13/24 15:09 [id number] 08/13/24 15:16 Document 08/19/24 15:24 JF [id number] 08/19/24 15:30 Document 08/28/24 15:25 DS [id number] 08/28/24 15:29 DS 05/07/25 05/13/25 05/22/25 15:09 15:24 15:25 Wound Center Nurse 2 2. LLE ant -Time 15:09 -Correct Patient Yes -Correct Side, Site, Position Yes -Correct Procedure No -Procedure Performed No -Wound/Ulcer Outcome Healed- Epithelialized -Ulcer Cleansing Not Cleansed -Foul Odor after Cleansing No -Bioengineered Tissue No -Bleeding Controlled with NA -Offloading No 4. L thomason superior -Time 15:25 -Correct Patient Yes -Correct Side, Site, Position Yes -Procedure Performed No -Post Debridement (cm) - Length 2.0 -Post Debridement (cm) - Width 1.2 -Post Debridement (cm) - Depth 0.1 -Total Square (Post) (cm) 2.40 -Area of Debridement (cm) - Length 2.0 -Area of Debridement (cm) - Width 1.2 -Total Square (Area) (cm) 2.40 -Tunneling No -Undermining/Tunneling No -Circular Undermining No -Wound/Ulcer Outcome Not Healed #3 LLE INF -Time 15: 15:27 15:25 -Correct Patient Yes Yes Yes -Correct Side, Site, Position Yes Yes Yes -Correct Procedure No Yes Yes -Procedure Performed No Yes Yes -Type of Procedure Debridement Debridement -Clinical Debridement Subcutaneous Subcutaneous -Tissue Removed Subcutaneous Subcutaneous -Post Debridement (cm) - Length 1.2 0.7 -Post Debridement (cm) - Width 1.3 1.0 -Post Debridement (cm) - Depth 0.1 0.1 -Total Square (Post) (cm) 1.56 0.70 -Area of Debridement (cm) - Length 1.2 0.7 -Area of Debridement (cm) - Width 1.3 1.0 -Total Square (Area) (cm) 1.56 0.70 -Tunneling No No -Undermining/Tunneling No No -Circular Undermining No No -Wound/Ulcer Outcome Not Healed Not Healed Not Healed -Ulcer Cleansing Rinsed/ Rinsed/ Irrigated with Irrigated with Saline Saline -Foul Odor after Cleansing No No No -Bioengineered Tissue No No No -Bleeding Controlled with NA Pressure Pressure -Treatment Response Procedure Procedure Tolerated Well Tolerated Well -Offloading No -Debridement - Subq, 1st 20sq cm Yes Yes Pain Scale: 0-10 Numeric Is Patient Pain Free? Yes Yes Yes WC - Nurse 3 - General Ulcer D/C NN Start: 08/13/24 14:49 Freq: Status: Active Protocol: Activity Type Activity Date Activity User E-sign Co-sign Detail Recorded Client Recorded Date Recorded By Document 08/13/24 15:23 DL [id number] 08/13/24 15:24 DL Document 08/19/24 15:42 RB [id number] 08/19/24 15:43 RB Document 08/28/24 15:40 [facility] [id number] 08/28/24 15:42 BMF 08/13/24 08/19/24 08/28/24 15:23 15:42 15:40 Wound Care Center Nurse 3 2. LLE ant -Other Dressing No Dressing/ Healed -Wound Comment(s) Healed. 4. L thomason superior -Ulcer Cleansing Rinsed/ Irrigated with Saline -Foul Odor after Cleansing No -Primary Dressing Applied Aquacel Extra, Silicone Border Foam 4x4 -Aquacel Extra 1 -Silicone Border Foam 4x4 1 #3 LLE INF -Ulcer Cleansing Rinsed/ Rinsed/ Rinsed/ Irrigated with Irrigated with Irrigated with Saline Saline Saline -Foul Odor after Cleansing No No -Primary Dressing Applied Aquacel AG 4x4, Aquacel Extra, Aquacel Extra, Silicone Border Silicone Border Silicone Border Foam 4x4 Foam 4x4 Foam 4x4 -Aquacel Extra 1 0 -Aquacel AG 4x4 1 -Silicone Border Foam 4x4 1 1 1 LLE -Tubular Bandage Single Layer Single Layer -Size of Tubigrip Used Size C Size B -Size B ($) 1 -Size C ($) 1 -Other refused size b. says has a c @ home and wants to reapply when she gets home Treatment Response Procedure Procedure Procedure Tolerated Well Tolerated Well Tolerated Well Pain Scale: 0-10 Numeric Is Patient Pain Free? Yes Yes Yes WC - Visit Discharge Discharge Condition Stable Stable Stable Ambulatory Status Ambulatory Ambulatory Ambulatory Transportation Private Auto Private Auto Private Auto Medication Reconcilliation completed & No provided to patient/care provider Clinical Summary of Care Provided Yes Charges/Coding Procedures Integumentary [id number]: [id number] [place] subq tissue 20 sq cm/< Assessment/Plan Assessment/Plan (1) Non-pressure chronic ulcer of left lower leg with fat layer exposed: CODE(S): L97.922 - Non-pressure chronic ulcer of unspecified part of left lower leg with fat layer exposed (2) Traumatic open wound of left lower leg: CODE(S): S81.802A - Unspecified open wound, left lower leg, initial encounter QUALIFIERS: Encounter type: subsequent encounter Qualified Code(s): S81.802D - Unspecified open wound, left lower leg, subsequent encounter (3) Lumbar scoliosis: CODE(S): M41.9 - Scoliosis, unspecified QUALIFIERS: Scoliosis type: other secondary scoliosis Qualified Code(s): M41.56 - Other secondary scoliosis, lumbar region (4) Low back pain: CODE(S): M54.50 - Low back pain, unspecified (5) DDD (degenerative disc disease), lumbosacral: CODE(S): M51.37 - Other intervertebral disc degeneration, lumbosacral region (6) Hypothyroidism (acquired): CODE(S): E03.9 - Hypothyroidism, unspecified (7) Cataracts, bilateral: CODE(S): H26.9 - Unspecified cataract (8) History of tonsillectomy: CODE(S): Z90.89 - Acquired absence of other organs (9) History of IBS: CODE(S): Z87.19 - Personal history of other diseases of the digestive system (10) Former smoker: CODE(S): Z87.891 - Personal history of nicotine dependence (11) History of lumbar spinal fusion: CODE(S): Z98.1 - Arthrodesis status (12) History of hysterectomy: CODE(S): Z90.710 - Acquired absence of both cervix and uterus (13) History of cervical discectomy: CODE(S): Z98.890 - Other specified postprocedural states (14) History of total hip replacement: CODE(S): Z96.649 - Presence of unspecified artificial hip joint (15) Status post spinal disc removal: CODE(S): Z98.890 - Other specified postprocedural states PLAN: Plan This is a 74-year-old female who presented with traumatic wounds in both lower extremities. Although the patient does not relate significant swelling in her lower extremities, measures to prevent such swelling have been thoroughly discussed. In fact, pitting edema has recently been noted in the patient's left lower extremity. The patient has been encouraged to elevate her lower extremities as much as possible. She has been advised to refrain from prolonged, idle sitting. Activity has been encouraged. The patient has been encouraged to optimize her nutritional intake. Her appetite is said to be recently depressed due to the recent loss of her . She had been provided samples of Frank, and encouraged to use a nutritional supplement on a daily basis until which time her appetite returns to normal. The patient attests to the fact that her appetite has returned to normal, and she is consuming a well-balanced diet. We are to continue the use of Aquacel and [place] SAP topically to the left pretibial wound on a daily basis. The patient has been instructed on appropriate means of application. The patient has been advised to change the wound dressing once or twice daily, as necessary, based upon the amount of drainage noted. She is to use Aquacel and [place] SAP on a new, traumatic ulceration on the left lateral calf. A wound culture, recently obtained of the chronic ulceration, was negative for bacterial growth. A noninvasive lower extremity arterial study was performed on June 13, 2024, the results of which revealed no evidence of significant arterial occlusive disease in the lower extremities. Because of the pitting edema noted by examination, and the large amount of exudative drainage, we are to continue compression to the left lower extremity by means of Tubigrip, which will be donned on a daily basis. The patient has also been encouraged to elevate her lower extremities to heart level, or higher, as much as possible. The patient is to return for reevaluation in 1 week. Total time: 25 minutes
[2024-09-02 14:46] VITALS: BP 132/76; PULSE 74; RESP 18; TEMP 35.8; BMI 19.7
--- NOTE | 2024-09-02 16:13 | HP.PCM_ITS ---
History of Present Illness Date of Service: 09/02/24 Chief Complaint: Bilateral lower extremity traumatic wounds History of Wound: This is a 74-year-old female who presented with traumatic wounds to both lower extremities. The wounds were located on the pretibial surfaces bilaterally. The wound on the right pretibial surface occurred approximately 1 month prior to presentation, resulting when the patient bumped her leg against a trash bin. The wound had failed to heal appropriately. More recently, approximately 10 days prior to presentation, the patient dropped a box of spaghetti noodles onto the left pretibial surface, resulting in a wound which had failed to heal. The patient was seen by her primary care physician, Dr. Lundberg, 4 days prior to presentation, where a course of Keflex and doxycycline were initiated. The patient has completed her course of antibiotics. 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 The patient is mobile and active. She denies swelling in her legs. She sleeps on a flat surface at night. She denies a history of thrombophlebitis. The patient denies a history of congestive heart failure, myocardial infarction, diabetes mellitus, cerebrovascular accident, hypertension, renal disease, and pulmonary disease. She has a history of hypothyroidism. A limited venous duplex examination is noted to have been performed on October 26, 2022, examining only the right lower extremity, and revealing no evidence of thrombophlebitis. Valvular competence was not fully evaluated. [facility] Medical History Traumatic open wound of right lower leg Traumatic open wound of left lower leg Non-pressure chronic ulcer of left lower leg with fat layer exposed Non-pressure chronic ulcer of right lower leg with fat layer exposed Traumatic open wound of right lower leg with delayed healing Traumatic open wound of left lower leg with delayed healing Wears glasses Anxiety Alcohol use History of steroid therapy Easy bruising Back pain Injury of back Migraine headache Syncope History of IBS Former smoker Leg cramps History of edema History of stress test Cataracts, bilateral Arthritis Anemia Vitamin D deficiency, unspecified Hypothyroidism Home Medications ?Medication ?Instructions ?Recorded ?Last Taken ?Type lidocaine 5 % topical patch 2 patch topical DAILY 04/10 08/24 1 Day Ago History ~09/21/17 meloxicam 15 mg tablet 15 mg PO QDAY 05/03/1709/22 History doxepin 10 mg capsule 10 mg PO QHS 12/16/19 Unknow n History folic acid 400 mcg tablet 0.4 mg PO DAILY@0800 0 Unknown History linaclotide 145 mcg capsule 145 mcg PO DAILY 12/16/19 Unknown History estradiol 0.1 mg/24 hr semiweekly 2 patch transdermal MOTH 03/15/20 Unknown History transdermal patch (Bessie) acetaminophen 500 mg tablet 1,000 mg PO BID 01/06/22 U nknown History vitamin [id number] B1 100 mg-1 1 ml IM .QMO 01/06/22 Unknown History mg/mL intramuscular solution levothyroxine 50 mcg tablet 50 mcg PO DAILY 03/18/24 U nknown History gabapentin 100 mg capsule 100 mg PO BID 05/07/24 Unkno wn History loratadine 10 mg tablet 10 mg PO .prn 05/07/24 Unkno wn History sulfamethoxazole 800 1 tab PO Q12H #14 tabs 05/27 Unknown Rx mg-trimethoprim 160 mg tablet (Bactrim DS) cephalexin 500 mg capsule 500 mg PO 4X/DAY 07/08/24 Un known History doxycycline hyclate 100 mg tablet 100 mg PO BID Unknown History sulfamethoxazole 800 1 tab PO Q12H #14 tabs 07/08 Unknown Rx mg-trimethoprim 160 mg tablet (Bactrim DS) Allergy/AdvReac Type Severity Reaction Status Date / Time No Known Allergies Allergy Verified 05/07/24 11:09 Family History Mother Rheumatoid arthritis Father Pancreatic cancer Cancer Grandfather Myocardial infarction Grandmother Thyroid disorder Surgical History Status post spinal disc removal History of tonsillectomy History of lumbar spinal fusion History of total hip replacement History of hysterectomy History of cervical discectomy Social History household members: spouse Smoking Status: Never smoker alcohol intake: current alcohol intake frequency: a few times a week Alcohol type: wine substance use type: does not use what type of physical activity do you participate in: other details: physical therapy frequency: 1-2 times per week Vital Signs Vital Signs Vital Signs: 09/02/24 14:46 Temperature 96.5 F L Temperature Source Temporal Pulse Rate 74 Respiratory Rate 18 Blood Pressure 132/76 H Blood Pressure Mean 94 Blood Pressure Source Monitor Blood Pressure Position Semi-Fowlers Blood Pressure Location Right Arm Weight Weight: 101 lb Body Mass Index (BMI) 19.7 Physical Exam Const alert, oriented x3, no apparent distress, average body habitus and no limitations Constitutional Narrative: The patient's BMI is 19.7. She is of thin body habitus. General Appearance: cooperative, comfortable, well kempt and well developed Orientation / Consciousness: awake, oriented to person, oriented to place and oriented to time Exam Limitations: no limitations HEENT normocephalic, head/scalp atraumatic and hearing grossly normal bilaterally Head and Scalp: normal to inspection, normocephalic and atraumatic Face and Sinus: normal facial exam Nose: external nose normal External Ear: external ears normal Eyes EOMs intact bilaterally General Eye: normal appearance of both eyes Neck full ROM Resp normal respiratory effort, normal air movement, no retractions and no use of accessory muscles Effort and Inspection: able to speak in complete sentences Extremity no calf tenderness General Extremity: Negative for clubbing or cyanosis Skin Wound Narrative: The patient's lower extremities appear warm and well-perfused. Pedal pulses are easily palpable bilaterally. Visually, there is no significant swelling or edema in the patient's lower extremities. However, closer examination reveals slight pitting edema in the left lower extremity. The wound on the right pretibial surface remains completely healed and epithelialized. A wound remains on the left pretibial surface. It is full-thickness in nature. There is a small amount of bioburden. Dimensions are documented elsewhere. There has been little change or progress in recent weeks. [place] granulation tissue is noted at the periphery. The wound continues to be highly exudative, with a great deal of drainage. The patient confirms that there has been a great deal of drainage from the wound in recent weeks. Wound margins are well beveled. A recent wound now exists on the left lateral calf, the result of an inadvertent injury while doffing the patient's Tubigrip compression garment. As result, there is now a new full-thickness ulceration on the left lateral calf. Dimensions are docume nted elsewhere. There is no sign of infection or cellulitis. Ulcer margins appear well beveled. Hair: normal Neuro oriented x3, CN's II-XII intact bilaterally, moves all extremities, no focal motor deficits and no sensory deficits noted Sensorium / Orientation: awake, alert, oriented to person, oriented to place and oriented to time Speech: speech normal Psych Appearance: grossly normal and appropriate Attitude: calm Activity / Motor Behavior: appropriate eye contact Speech: normal speech Mood & Affect: euthymic mood Thought Process: normal thought process Thought Content: normal thought content Attention / Concentration: attention grossly intact Debridement Note Debridement Note Wound debrided: Left pretibial and left lateral calf wounds Laterality: Left Type of Debridement: Excisional debridement Anesthesia Used: 5% Lidocaine Gel and Cetacaine Depth: Down to and including healthy tissue and in the subcutaneous layer Percentage of wound debrided: 100 Instrument Used: 5mm curette Tissue Removed: Bioburden and nonviable tissue Severity: Fat Layer Exposed Amount of bleeding with debridement: Mild Bleeding Controlled with: Compression and gauze Patient tolerated procedure: Patient tolerated procedure well Post-Debridement Measurements and Additional Note: Post-Debridement Measurements/Treatment - Nurse 1 - General Ulcer Assessment Start: 08/13/24 14:49 Freq: Status: Active Protocol: JOE.SellrBuyr Free Classifieds [place] Activity Type Activity Date Activity User E-sign Co-sign Detail Recorded Client Recorded Date Recorded By Document 08/13/24 14:49 [facility] [id number] 08/13/24 14:54 [facility] Document 08/19/24 15:10 RB [id number] 08/19/24 15:13 RB Document 08/28/24 14:57 RB [id number] 08/28/24 15:09 RB Document 09/02/24 14:46 [id number] 09/02/24 14:52 08/13/24 08/19/24 08/28/24 14:49 15:10 14:57 - Today's Visit Information Type of service Follow-up Visit Follow-up Visit Follow-up Visit (Physician/PC ANALYST (Physician/PC ANALYST (Physician/PC ANALYST ) ) ) Arrival Mode Ambulatory Ambulatory Ambulatory Transfer Assistance None None None Patient Identification Verified (Name & Yes Yes Yes ) Patient Requires Transmission-Based No No No Precautions Height and Weight Body Mass Index (BMI) 19.7 19.7 19.7 BMI Classification Normal Normal Normal Vital Signs Temperature (97.8 F-99.1 F) 97.8 F 96.4 F L 97.4 F L Temperature Source Temporal Temporal Temporal Pulse Rate (60-100) 83 58 L 68 Pulse Location Monitor Monitor Monitor Respiratory Rate (12-18) 16 18 18 Respiratory rate source Observation Observation Observation Oxygen Delivery Method Room Air Blood Pressure (90/60-120/80) 134/74 H 156/70 H 119/78 Blood Pressure Mean 94 98 91 Source Monitor Monitor Monitor Position Sitting Semi-Fowlers Semi-Fowlers Blood Pressure Location Left Arm Left Arm Left Arm History Since Last Visit- (Skip if this is Patient's initial visit) Have you changed medications since your No No No last visit? Any new allergies or adverse reactions No No No Had a fall/change in ADL's that may No No No increase risk of falls Signs or symptoms of abuse and/or No No No neglect since last visit Have you been in the hospital since your No No No last visit? Has dressing in place as prescribed Yes Yes Yes Has compression in place as prescribed N/A Yes Yes Has offloadiing in place as prescribed N/A N/A N/A Experienced any changes in pain level or No No No management Left Footwear Regular Shoe Regular Shoe Right Footwear Regular Shoe Regular Shoe Pain Scale: 0-10 Numeric Is Patient Pain Free? Yes No No LLE -Description Sharp,Dull, Aching Throbbing, Burning, Crushing, Tightness, Aching,Cramping ,Pressure -Intensity 3 2 -Duration (hours) Acute Acute -Pain Behavior Guarding Withdrawal from Touch -Pain Aggravating Factors Exercise/ Exercise/ Activity Activity -Alleviating Factors/Interventions Medication Medication -Effectiveness of Alleviating Factor/ Moderately Minimally Intervention effective effective -Comments pt states when she removed size B tubigrip last week the skin on her thomason stuck and tore when removing tubigrip 09/02/24 14:46 WC - Today's Visit Information Type of service Follow-up Visit (Physician/PC ANALYST ) Arrival Mode Ambulatory Transfer Assistance Patient Identification Verified (Name & Yes ) Patient Requires Transmission-Based No Precautions Height and Weight Body Mass Index (BMI) 19.7 BMI Classification Normal Vital Signs Temperature (97.8 F-99.1 F) 96.5 F L Temperature Source Temporal Pulse Rate (60-100) 74 Pulse Location Monitor Respiratory Rate (12-18) 18 Respiratory rate source Observation Oxygen Delivery Method Blood Pressure (90/60-120/80) 132/76 H Blood Pressure Mean 94 Source Monitor Position Semi-Fowlers Blood Pressure Location Right Arm History Since Last Visit- (Skip if this is Patient's initial visit) Have you changed medications since your Yes last visit? Any new allergies or adverse reactions No Had a fall/change in ADL's that may No increase risk of falls Signs or symptoms of abuse and/or No neglect since last visit Have you been in the hospital since your No last visit? Has dressing in place as prescribed Yes Has compression in place as prescribed No Has offloadiing in place as prescribed N/A Experienced any changes in pain level or No management Left Footwear Regular Shoe Right Footwear Regular Shoe Pain Scale: 0-10 Numeric Is Patient Pain Free? Yes LLE -Description -Intensity -Duration (hours) -Pain Behavior -Pain Aggravating Factors -Alleviating Factors/Interventions -Effectiveness of Alleviating Factor/ Intervention -Comments WC - Nurse 1 - General Ulcer Measurement Start: 08/13/24 14:49 Freq: Status: Active Protocol: Activity Type Activity Date Activity User E-sign Co-sign Detail Recorded Client Recorded Date Recorded By Document 08/13/24 14:49 [facility] [id number] 08/13/24 14:54 [facility] Document 08/19/24 15:10 RB [id number] 08/19/24 15:13 RB Document 08/28/24 14:57 RB [id number] 08/28/24 15:09 RB Document 09/02/24 14:46 [id number] 09/02/24 14:52 08/13/24 08/19/24 08/28/24 14:49 15:10 14:57 Wound Center Nurse 1 2. LLE ant -Combined with other wound No -Current Size (cm) - Length 0.1 -Current Size (cm) - Width 0.1 -Current Size (cm) - Depth 0.1 -Total Square Cm 0.01 -Date of Last Picture (Recall this 08/13/24 field) -Photo Taken Yes -Epithelialization Medium 34-66% -Tunneling No -Undermining/Tunneling No -Circular Undermining No -Exudate Amt Small -Exudate Type Serosanguineous -Wound Margin Distinct, Outline Attached -Granulation Amt Large (67-100%) -Granulation Quality Red -Slough/Fibrin No -Necrosis Amt None Present (0 %) -Texture (Joyce-wound Skin Appearance) Assessed -Moisture (Joyce-wound Skin Appearance) Assessed,Dry/ Scaly -Color (Joyce-wound Skin Appearance) Assessed -Temperature (Joyce-wound Skin No Abnormality Appearance) (Pt Warm) -Tenderness on Palpation (Joyce-wound No Skin Appearance) -Ulcer Cleansing Rinsed/ Irrigated with Saline -Foul Odor after Cleansing No -Anesthetic Used 5% Lidocaine Gel 4. L thomason superior -Combined with other wound No -Current Size (cm) - Length 1.5 -Current Size (cm) - Width 1.1 -Current Size (cm) - Depth 0.1 -Total Square Cm 1.65 -Photo Taken Yes -Epithelialization -Tunneling No -Undermining/Tunneling No -Circular Undermining No -Exudate Amt Medium -Exudate Type Serosanguineous -Wound Margin Distinct, Outline Attached -Granulation Amt Medium (34-66%) -Granulation Quality [place] -Slough/Fibrin Yes -Necrosis Amt Small (1-33%) -Necrotic Tissue Type Adherent Slough -Structure Exposed N/A -Texture (Joyce-wound Skin Appearance) Assessed, Excoriation -Moisture (Joyce-wound Skin Appearance) Assessed -Color (Joyce-wound Skin Appearance) Assessed -Temperature (Joyce-wound Skin No Abnormality Appearance) (Pt Warm) -Tenderness on Palpation (Joyce-wound No Skin Appearance) -Ulcer Cleansing Wound Cleanser -Foul Odor after Cleansing No -Anesthetic Used 4% Lidocaine Solution #3 LLE INF -Combined with other wound No No No -Current Size (cm) - Length 1 1 0.6 -Current Size (cm) - Width 1.1 1.4 0.8 -Current Size (cm) - Depth 0.1 0.1 0.1 -Total Square Cm 1.1 1.4 0.48 -Date of Last Picture (Recall this 08/13/24 field) -Photo Taken Yes Yes Yes -Epithelialization -Tunneling No No No -Undermining/Tunneling No No No -Circular Undermining No No No -Exudate Amt Large Medium Medium -Exudate Type Serosanguineous Serosanguineous Serosanguineous -Wound Margin Flat & Intact Distinct, Distinct, Outline Outline Attached Attached -Granulation Amt Medium (34-66%) Medium (34-66%) Medium (34-66%) -Granulation Quality [place] -Slough/Fibrin Yes Yes Yes -Necrosis Amt Medium (34-66%) None Present (0 Medium (34-66%) %) -Necrotic Tissue Type Adherent Slough Adherent Slough Adherent Slough -Structure Exposed N/A N/A -Texture (Joyce-wound Skin Appearance) Assessed Assessed, Assessed, Localized Edema Friable -Moisture (Joyce-wound Skin Appearance) Assessed, Assessed Assessed Maceration -Color (Joyce-wound Skin Appearance) Assessed Assessed Assessed -Temperature (Joyce-wound Skin No Abnormality No Abnormality No Abnormality Appearance) (Pt Warm) (Pt Warm) (Pt Warm) -Tenderness on Palpation (Joyce-wound No No No Skin Appearance) -Ulcer Cleansing Rinsed/ Wound Cleanser Wound Cleanser Irrigated with Saline -Foul Odor after Cleansing No No No -Anesthetic Used 5% Lidocaine 5% Lidocaine 4% Lidocaine Gel Gel Solution Lower Limb Edema Present Yes Yes Left Calf (cm) 27.7 28.2 Left Ankle (cm) 17.2 18 09/02/24 14:46 Wound Center Nurse 1 2. LLE ant -Combined with other wound -Current Size (cm) - Length -Current Size (cm) - Width -Current Size (cm) - Depth -Total Square Cm -Date of Last Picture (Recall this field) -Photo Taken -Epithelialization -Tunneling -Undermining/Tunneling -Circular Undermining -Exudate Amt -Exudate Type -Wound Margin -Granulation Amt -Granulation Quality -Slough/Fibrin -Necrosis Amt -Texture (Joyce-wound Skin Appearance) -Moisture (Joyce-wound Skin Appearance) -Color (Joyce-wound Skin Appearance) -Temperature (Joyce-wound Skin Appearance) -Tenderness on Palpation (Joyce-wound Skin Appearance) -Ulcer Cleansing -Foul Odor after Cleansing -Anesthetic Used 4. L thomason superior -Combined with other wound No -Current Size (cm) - Length 1.5 -Current Size (cm) - Width 1.0 -Current Size (cm) - Depth 0.1 -Total Square Cm 1.50 -Photo Taken Yes -Epithelialization Medium 34-66% -Tunneling No -Undermining/Tunneling No -Circular Undermining No -Exudate Amt Small -Exudate Type Serosanguineous -Wound Margin Flat & Intact -Granulation Amt Medium (34-66%) -Granulation Quality Red -Slough/Fibrin Yes -Necrosis Amt Small (1-33%) -Necrotic Tissue Type Adherent Slough -Structure Exposed N/A -Texture (Joyce-wound Skin Appearance) Assessed -Moisture (Joyce-wound Skin Appearance) Assessed,Dry/ Scaly -Color (Joyce-wound Skin Appearance) Assessed -Temperature (Joyce-wound Skin No Abnormality Appearance) (Pt Warm) -Tenderness on Palpation (Joyce-wound No Skin Appearance) -Ulcer Cleansing Rinsed/ Irrigated with Saline -Foul Odor after Cleansing No -Anesthetic Used 4% Lidocaine Solution #3 LLE INF -Combined with other wound No -Current Size (cm) - Length 0.8 -Current Size (cm) - Width 1.1 -Current Size (cm) - Depth 0.1 -Total Square Cm 0.88 -Date of Last Picture (Recall this field) -Photo Taken Yes -Epithelialization Medium 34-66% -Tunneling No -Undermining/Tunneling No -Circular Undermining No -Exudate Amt Small -Exudate Type Serosanguineous -Wound Margin Flat & Intact -Granulation Amt Medium (34-66%) -Granulation Quality Red -Slough/Fibrin Yes -Necrosis Amt Small (1-33%) -Necrotic Tissue Type Adherent Slough -Structure Exposed N/A -Texture (Joyce-wound Skin Appearance) Assessed -Moisture (Joyce-wound Skin Appearance) Assessed, Maceration -Color (Joyce-wound Skin Appearance) Assessed -Temperature (Joyce-wound Skin No Abnormality Appearance) (Pt Warm) -Tenderness on Palpation (Joyce-wound No Skin Appearance) -Ulcer Cleansing Rinsed/ Irrigated with Saline -Foul Odor after Cleansing No -Anesthetic Used 4% Lidocaine Solution Lower Limb Edema Present No Left Calf (cm) Left Ankle (cm) WC - Nurse 2 - General Ulcer CM Notes Start: 08/13/24 14:49 Freq: Status: Active Protocol: Activity Type Activity Date Activity User E-sign Co-sign Detail Recorded Client Recorded Date Recorded By Document 08/13/24 15:09 GM [id number] 08/13/24 15:16 Document 08/19/24 15:24 JF [id number] 08/19/24 15:30 Document 08/28/24 15:25 DS [id number] 08/28/24 15:29 DS Document 09/02/24 15:06 DS [id number] 09/02/24 15:10 DS 08/13/24 08/19/24 08/28/24 15:09 15:24 15:25 Wound Center Nurse 2 2. LLE ant -Time 15:09 -Correct Patient Yes -Correct Side, Site, Position Yes -Correct Procedure No -Procedure Performed No -Wound/Ulcer Outcome Healed- Epithelialized -Ulcer Cleansing Not Cleansed -Foul Odor after Cleansing No -Bioengineered Tissue No -Bleeding Controlled with NA -Offloading No 4. L thomason superior -Time 15:25 -Correct Patient Yes -Correct Side, Site, Position Yes -Correct Procedure -Procedure Performed No -Type of Procedure -Clinical Debridement -Tissue Removed -Post Debridement (cm) - Length 2.0 -Post Debridement (cm) - Width 1.2 -Post Debridement (cm) - Depth 0.1 -Total Square (Post) (cm) 2.40 -Area of Debridement (cm) - Length 2.0 -Area of Debridement (cm) - Width 1.2 -Total Square (Area) (cm) 2.40 -Tunneling No -Undermining/Tunneling No -Circular Undermining No -Wound/Ulcer Outcome Not Healed -Ulcer Cleansing -Foul Odor after Cleansing -Bioengineered Tissue -Bleeding Controlled with -Treatment Response -Debridement - Subq, 1st 20sq cm #3 LLE INF -Time 15: 15:27 15:25 -Correct Patient Yes Yes Yes -Correct Side, Site, Position Yes Yes Yes -Correct Procedure No Yes Yes -Procedure Performed No Yes Yes -Type of Procedure Debridement Debridement -Clinical Debridement Subcutaneous Subcutaneous -Tissue Removed Subcutaneous Subcutaneous -Post Debridement (cm) - Length 1.2 0.7 -Post Debridement (cm) - Width 1.3 1.0 -Post Debridement (cm) - Depth 0.1 0.1 -Total Square (Post) (cm) 1.56 0.70 -Area of Debridement (cm) - Length 1.2 0.7 -Area of Debridement (cm) - Width 1.3 1.0 -Total Square (Area) (cm) 1.56 0.70 -Tunneling No No -Undermining/Tunneling No No -Circular Undermining No No -Wound/Ulcer Outcome Not Healed Not Healed Not Healed -Ulcer Cleansing Rinsed/ Rinsed/ Irrigated with Irrigated with Saline Saline -Foul Odor after Cleansing No No No -Bioengineered Tissue No No No -Bleeding Controlled with NA Pressure Pressure -Treatment Response Procedure Procedure Tolerated Well Tolerated Well -Offloading No -Debridement - Subq, 1st 20sq cm Yes Yes Pain Scale: 0-10 Numeric Is Patient Pain Free? Yes Yes Yes 09/02/24 15:06 Wound Center Nurse 2 2. LLE ant -Time -Correct Patient -Correct Side, Site, Position -Correct Procedure -Procedure Performed -Wound/Ulcer Outcome -Ulcer Cleansing -Foul Odor after Cleansing -Bioengineered Tissue -Bleeding Controlled with -Offloading 4. L thomason superior -Time 15:00 -Correct Patient Yes -Correct Side, Site, Position Yes -Correct Procedure Yes -Procedure Performed Yes -Type of Procedure Debridement -Clinical Debridement Subcutaneous -Tissue Removed Subcutaneous -Post Debridement (cm) - Length 2.0 -Post Debridement (cm) - Width 1.5 -Post Debridement (cm) - Depth 0.1 -Total Square (Post) (cm) 3.00 -Area of Debridement (cm) - Length 2.0 -Area of Debridement (cm) - Width 1.5 -Total Square (Area) (cm) 3.00 -Tunneling No -Undermining/Tunneling No -Circular Undermining No -Wound/Ulcer Outcome Not Healed -Ulcer Cleansing Rinsed/ Irrigated with Saline -Foul Odor after Cleansing No -Bioengineered Tissue No -Bleeding Controlled with Pressure -Treatment Response Procedure Tolerated Well -Debridement - Subq, 1st 20sq cm No #3 LLE INF -Time 15:00 -Correct Patient Yes -Correct Side, Site, Position Yes -Correct Procedure Yes -Procedure Performed Yes -Type of Procedure Debridement -Clinical Debridement Subcutaneous -Tissue Removed Subcutaneous -Post Debridement (cm) - Length 0.8 -Post Debridement (cm) - Width 1.0 -Post Debridement (cm) - Depth 0.1 -Total Square (Post) (cm) 0.80 -Area of Debridement (cm) - Length 0.8 -Area of Debridement (cm) - Width 1.0 -Total Square (Area) (cm) 0.80 -Tunneling No -Undermining/Tunneling No -Circular Undermining No -Wound/Ulcer Outcome Not Healed -Ulcer Cleansing Rinsed/ Irrigated with Saline -Foul Odor after Cleansing No -Bioengineered Tissue No -Bleeding Controlled with Pressure -Treatment Response Procedure Tolerated Well -Offloading -Debridement - Subq, 1st 20sq cm Yes Pain Scale: 0-10 Numeric Is Patient Pain Free? Yes WC - Nurse 3 - General Ulcer D/C NN Start: 08/13/24 14:49 Freq: Status: Active Protocol: Activity Type Activity Date Activity User E-sign Co-sign Detail Recorded Client Recorded Date Recorded By Document 08/13/24 15:23 DL [id number] 08/13/24 15:24 DL Document 08/19/24 15:42 RB [id number] 08/19/24 15:43 RB Document 08/28/24 15:40 BMF [id number] 08/28/24 15:42 BMF Document 09/02/24 15:15 KW [id number] 09/02/24 15:17 KW Edit Result 09/02/24 15:15 KW (1) [id number] 09/02/24 15:26 KW (1) 4. L thomason superior - Silicone Border Foam 4x4 1 => 3 #3 LLE INF - Silicone Border Foam 4x4 1 => 3 08/13/24 08/19/24 08/28/24 15:23 15:42 15:40 Wound Care Center Nurse 3 2. LLE ant -Other Dressing No Dressing/ Healed -Wound Comment(s) Healed. 4. L thomason superior -Ulcer Cleansing Rinsed/ Irrigated with Saline -Foul Odor after Cleansing No -Primary Dressing Applied Aquacel Extra, Silicone Border Foam 4x4 -Aquacel Extra 1 -Hydrogel -Silicone Border Foam 4x4 1 #3 LLE INF -Ulcer Cleansing Rinsed/ Rinsed/ Rinsed/ Irrigated with Irrigated with Irrigated with Saline Saline Saline -Foul Odor after Cleansing No No -Primary Dressing Applied Aquacel AG 4x4, Aquacel Extra, Aquacel Extra, Silicone Border Silicone Border Silicone Border Foam 4x4 Foam 4x4 Foam 4x4 -Aquacel Extra 1 0 -Aquacel AG 4x4 1 -Silicone Border Foam 4x4 1 1 1 LLE -Tubular Bandage Single Layer Single Layer -Size of Tubigrip Used Size C Size B -Size B ($) 1 -Size C ($) 1 -Other refused size b. says has a c @ home and wants to reapply when she gets home Treatment Response Procedure Procedure Procedure Tolerated Well Tolerated Well Tolerated Well Pain Scale: 0-10 Numeric Is Patient Pain Free? Yes Yes Yes WC - Visit Discharge Discharge Condition Stable Stable Stable Ambulatory Status Ambulatory Ambulatory Ambulatory Transportation Private Auto Private Auto Private Auto Medication Reconcilliation completed & No provided to patient/care provider Clinical Summary of Care Provided Yes 09/02/24 15:15 [facility] Nurse 3 2. LLE ant -Other Dressing -Wound Comment(s) 4. L thomason superior -Ulcer Cleansing -Foul Odor after Cleansing -Primary Dressing Applied C Hydrogel, NonAdherent Contact Layer, Silicone Border Foam 4x4 -Aquacel Extra -Hydrogel 1 -Silicone Border Foam 4x4 3 #3 LLE INF -Ulcer Cleansing -Foul Odor after Cleansing -Primary Dressing Applied Aquacel Extra, Silicone Border Foam 4x4 -Aquacel Extra 1 -Aquacel AG 4x4 -Silicone Border Foam 4x4 3 LLE -Tubular Bandage -Size of Tubigrip Used -Size B ($) -Size C ($) -Other pt own tubi size C Treatment Response Pain Scale: 0-10 Numeric Is Patient Pain Free? Yes WC - Visit Discharge Discharge Condition Stable Ambulatory Status Ambulatory Transportation Private Auto Medication Reconcilliation completed & No provided to patient/care provider Clinical Summary of Care Provided Yes Charges/Coding Procedures Integumentary [id number]: [id number] [place] subq tissue 20 sq cm/< Assessment/Plan Assessment/Plan (1) Non-pressure chronic ulcer of left lower leg with fat layer exposed: CODE(S): L97.922 - Non-pressure chronic ulcer of unspecified part of left lower leg with fat layer exposed (2) Traumatic open wound of left lower leg: CODE(S): S81.802A - Unspecified open wound, left lower leg, initial encounter QUALIFIERS: Encounter type: subsequent encounter Qualified Code(s): S81.802D - Unspecified open wound, left lower leg, subsequent encounter (3) Lumbar scoliosis: CODE(S): M41.9 - Scoliosis, unspecified QUALIFIERS: Scoliosis type: other secondary scoliosis Qualified Code(s): M41.56 - Other secondary scoliosis, lumbar region (4) Low back pain: CODE(S): M54.50 - Low back pain, unspecified (5) DDD (degenerative disc disease), lumbosacral: CODE(S): M51.37 - Other intervertebral disc degeneration, lumbosacral region (6) Hypothyroidism (acquired): CODE(S): E03.9 - Hypothyroidism, unspecified (7) Cataracts, bilateral: CODE(S): H26.9 - Unspecified cataract (8) History of tonsillectomy: CODE(S): Z90.89 - Acquired absence of other organs (9) History of IBS: CODE(S): Z87.19 - Personal history of other diseases of the digestive system (10) Former smoker: CODE(S): Z87.891 - Personal history of nicotine dependence (11) History of lumbar spinal fusion: CODE(S): Z98.1 - Arthrodesis status (12) History of hysterectomy: CODE(S): Z90.710 - Acquired absence of both cervix and uterus (13) History of cervical discectomy: CODE(S): Z98.890 - Other specified postprocedural states (14) History of total hip replacement: CODE(S): Z96.649 - Presence of unspecified artificial hip joint (15) Status post spinal disc removal: CODE(S): Z98.890 - Other specified postprocedural states PLAN: Plan This is a 74-year-old female who presented with traumatic wounds in both lower extremities. Although the patient does not relate significant swelling in her lower extremities, measures to prevent such swelling have been thoroughly discussed. The patient has been encouraged to elevate her lower extremities as much as possible. She has been advised to refrain from prolonged, idle sitting. She is to continue wearing her Tubigrips on a daily basis. Activity has been encouraged. The patient has been encouraged to optimize her nutritional intake. The patient attests to the fact that her appetite is good, and she is consuming a well-balanced diet. We are to continue the use of Aquacel Extra and [place] SAP topically to the left pretibial wound on a daily basis. The patient has been instructed on appropriate means of application. The patient has been advised to change the wound dressing once or twice daily, as necessary, based upon the amount of drainage noted. She is to use collagen hydrogel and Adaptic on the more recent ulceration on the left lateral calf. Because of the lack of progress in healing related to the left pretibial ulceration, a swab culture has been again obtained for aerobic and anaerobic bacterial growth. Culture results will be awaited. A noninvasive lower extremity arterial study was performed on June 13, 2024, the results of which revealed no evidence of significant arterial occlusive disease in the lower extremities. The patient is to return for reevaluation in 1 week. We are to consider implementing the use of an allograft such as EpiFix on the left pretibial ulceration, as healing at this site has been somewhat delayed. Other causes of delayed wound healing, such as malnutrition, anemia, and circulatory factors do not appear to be involved. Total time: 24 minutes
--- NOTE | 2024-09-03 13:34 | WC ---
PHOTO 09/02/24 LEFT INF
--- NOTE | 2024-09-03 13:37 | WC ---
PHOTO 09/02/24 LEFT SUPERIOR
== END 2024-09-06 23:59 | disposition home or self-care (01) ==
LOC: WC 14:45
PROVIDERS: PCP Family Medicine Geriatric Medicine; Referring Provider Family Medicine Geriatric Medicine; Visit Provider Surgery
DX: L97.922 Non-pressure chronic ulcer of unspecified part of left lower leg with fat layer exposed (principal); Z90.710 Acquired absence of both cervix and uterus; H26.9 Unspecified cataract; E03.9 Hypothyroidism, unspecified; Z87.891 Personal history of nicotine dependence; Z98.1 Arthrodesis status; S81.802D Unspecified open wound, left lower leg, subsequent encounter; M41.56 Other secondary scoliosis, lumbar region; Z90.89 Acquired absence of other organs; Z87.19 Personal history of other diseases of the digestive system; Z96.649 Presence of unspecified artificial hip joint; Z98.890 Other specified postprocedural states; M51.370 Other intervertebral disc degeneration, lumbosacral region with discogenic back pain only
CPT/HCPCS: 11042; 87070; 87075; 87077; 87186; 87205; 99213; G0463

== ENCOUNTER → 2024-09-03 | Outpatient (CLI) | payer MEDICARE, OTHER, SELFPAY ==
[2024-09-03 12:50] LABS: Absolute Lymphocyte Count 1.09 X10^3/uL (0.83-4.51); Absolute Neutrophil Count 2.1 X10^3/uL (2.0-7.7); Basophil# 0.03 X10^3/uL; Basophil% 0.8 % (0-1); Eosinophil# 0.01 X10^3/uL; Eosinophils% 0.3 % (0-5); Hemoglobin 12.9 g/dL (12.0-15.0); Lymphocyte # 1.09 X10^3/ul (0.83-4.51); Lymphocyte % 29.5 % (19-41); Mean Corp Hgb Conc 33.1 g/dL (32-36); Mean Corpuscular Hgb 32.3 pg (27.0-32.0); Mean Corpuscular Volume 97.5 fL (81-99); Mean Platelet Vol. 9.7 fl (6.2-12.0); Monocyte# 0.43 X10^3/uL; Monocyte% 11.6 % (0-10); NRBC Flagged by Analyzer 0 % (0-5); Neutrophil # 2.12 X10^3/uL (2.7-7.7); Neutrophil % 57.3 % (47-70); Platelet Count 301 K/mm3 (150-450); RBC Distribution Width CV 11.3 % (11.6-14.6); RBC Distribution Width SD 40.3 fl (35.1-43.9); White Blood Count 3.7 K/mm3 (4.4-11.0)
[2024-09-03 13:50] LABS: AST(SGOT) 24 U/L (<=31); Alanine Aminotransfer ALT/SGPT 12 U/L (<=34); Albumin, Serum 4.4 g/dL (3.4-4.8); Alkaline Phosphatase 55 U/L (35-104); Anion Gap 10 (5-15); BUN 12 mg/dL (4-19); BUN/Creat Ratio 19.2 RATIO (10-20); Calcium,Total 9.1 mg/dL (7.6-11.0); Carbon Dioxide 26.1 mmol/L (21.0-32.0); Chloride 98 mmol/L (98-108); Creatinine, Serum 0.61 mg/dL (0.70-1.20); EST Glomerular Filtration Rate 94 (>60); Globulin 2.2 g/dL (2.2-4.2); Glucose 97 mg/dL (70-99); Potassium 4.3 mmol/L (3.3-5.1); Protein, Total 6.6 g/dL (5.9-8.4); Sodium Level 134 mmol/L (133-145); Total Bilirubin 0.43 mg/dL (0.00-1.30)
== END | disposition home or self-care (01) ==
LOC: LAB 11:58
PROVIDERS: PCP Family Medicine Geriatric Medicine; Referring Provider Family Medicine Geriatric Medicine; Visit Provider Family Medicine Geriatric Medicine
DX: E55.9 Vitamin D deficiency, unspecified (principal); L97.929 Non-pressure chronic ulcer of unspecified part of left lower leg with unspecified severity; R53.83 Other fatigue; E03.9 Hypothyroidism, unspecified
CPT/HCPCS: 36415; 80053; 82306; 84443; 85025

== ENCOUNTER → 2024-09-16 | Outpatient (CLI) | payer MEDICARE, OTHER, SELFPAY ==
--- NOTE | 2024-09-16 15:34 | BI_ITS ---
EXAM: SCRN MAMM (CAD)W/KACIE BILAT DATE: 09/16/2024 CLINICAL HISTORY: F, Age 74 y/o , SCREENING BREAST CANCER RISK ASSESSMENT: N/A TECHNIQUE: Bilateral screening digital breast tomosynthesis with 2D and 3D images. Computer aided detection. COMPARISON: Prior exam(s) were compared FINDINGS: TISSUE DENSITY: The breast tissue is heterogenously dense, which may obscure small masses. Bilateral Breast Mammographic Findings: No suspicious masses, calcifications or other abnormalities are identified. BI/SCRN MAMM (CAD)W/KACIE BILAT IMPRESSION: OVERALL FINAL ASSESSMENT: BIRADS 1 NEGATIVE RECOMMENDATION: Routine annual follow-up in 1 Year A letter with findings and recommendations will be mailed to the patient. Reading Location: [id number]
== END | disposition home or self-care (01) ==
PROVIDERS: PCP Family Medicine Geriatric Medicine; Referring Provider Family Medicine Geriatric Medicine; Visit Provider Family Medicine Geriatric Medicine
DX: Z12.31 Encounter for screening mammogram for malignant neoplasm of breast (principal)
CPT/HCPCS: 77063; 77067

== ENCOUNTER 2024-09-30 14:45 | Outpatient (RCR) | payer MEDICARE, OTHER, SELFPAY ==
[2024-09-07 00:08] VITALS: BP 132/76; PULSE 74; RESP 18; TEMP 35.8; BMI 19.7
[2024-09-09 14:33] VITALS: BP 139/38; PULSE 76; RESP 16; TEMP 36.3; BMI 19.7
--- NOTE | 2024-09-12 10:26 | PCM.WC.HP ---
History of Present Illness Date of Service: 09/09/24 Chief Complaint: Left lower extremity traumatic wounds History of Wound: This is a 74-year-old female who presented with traumatic wounds to both lower extremities. The wounds were located on the pretibial surfaces bilaterally. The wound on the right pretibial surface occurred approximately 1 month prior to presentation, resulting when the patient bumped her leg against a trash bin. The wound had failed to heal appropriately. More recently, approximately 10 days prior to presentation, the patient dropped a box of spaghetti noodles onto the left pretibial surface, resulting in a wound which had failed to heal. The patient was seen by her primary care physician, Dr. Lundberg, 4 days prior to presentation, where a course of Keflex and doxycycline were initiated. The patient has completed her course of antibiotics. 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 The patient is mobile and active. She denies swelling in her legs. She sleeps on a flat surface at night. She denies a history of thrombophlebitis. The patient denies a history of congestive heart failure, myocardial infarction, diabetes mellitus, cerebrovascular accident, hypertension, renal disease, and pulmonary disease. She has a history of hypothyroidism. A limited venous duplex examination is noted to have been performed on October 26, 2022, examining only the right lower extremity, and revealing no evidence of thrombophlebitis. Valvular competence was not fully evaluated. [facility] Medical History Traumatic open wound of right lower leg Traumatic open wound of left lower leg Non-pressure chronic ulcer of left lower leg with fat layer exposed Non-pressure chronic ulcer of right lower leg with fat layer exposed Traumatic open wound of right lower leg with delayed healing Traumatic open wound of left lower leg with delayed healing Wears glasses Anxiety Alcohol use History of steroid therapy Easy bruising Back pain Injury of back Migraine headache Syncope History of IBS Former smoker Leg cramps History of edema History of stress test Cataracts, bilateral Arthritis Anemia Vitamin D deficiency, unspecified Hypothyroidism Home Medications Medication Instructions Recorded Last Taken Type lidocaine 5 % topical patch 2 patch topical DAILY 05/03/17 1 Day Ago History ~09/21/17 meloxicam 15 mg tablet 15 mg PO QDAY 05/03/17 09/22/17 History doxepin 10 mg capsule 10 mg PO QHS 12/16/19 Unknown History folic acid 400 mcg tablet 0.4 mg PO DAILY@0800 12/16/19 Unknown History linaclotide 145 mcg capsule 145 mcg PO DAILY 12/16/19 Unknown History estradiol 0.1 mg/24 hr semiweekly 2 patch transdermal MOTH 03/15/20 Unknown History transdermal patch (Bessie) acetaminophen 500 mg tablet 1,000 mg PO BID 01/06/22 Unknown History vitamin [id number] B1 100 mg-1 1 ml IM .QMO 01/06/22 Unknown History mg/mL intramuscular solution levothyroxine 50 mcg tablet 50 mcg PO DAILY 03/18/24 Unknown History gabapentin 100 mg capsule 100 mg PO BID 05/07/24 Unknown History loratadine 10 mg tablet 10 mg PO .prn 05/07/24 Unknown History sulfamethoxazole 800 1 tab PO Q12H #14 tabs 05/27/24 Unknown Rx mg-trimethoprim 160 mg tablet (Bactrim DS) cephalexin 500 mg capsule 500 mg PO 4X/DAY 07/08/24 Unknown History doxycycline hyclate 100 mg tablet 100 mg PO BID 07/08/24 Unknown History sulfamethoxazole 800 1 tab PO Q12H #14 tabs 07/08/24 Unknown Rx mg-trimethoprim 160 mg tablet (Bactrim DS) sulfamethoxazole 800 1 tab PO Q12H wound infection #14 09/10/24 Unknown Rx mg-trimethoprim 160 mg tablet tabs (Bactrim DS) Allergy/AdvReac Type Severity Reaction Status Date / Time No Known Allergies Allergy Verified 05/07/24 11:09 Family History Mother Rheumatoid arthritis Father Pancreatic cancer Cancer Grandfather Myocardial infarction Grandmother Thyroid disorder Surgical History Status post spinal disc removal History of tonsillectomy History of lumbar spinal fusion History of total hip replacement History of hysterectomy History of cervical discectomy Social History household members: spouse Smoking Status: Never smoker alcohol intake: current alcohol intake frequency: a few times a week Alcohol type: wine substance use type: does not use what type of physical activity do you participate in: other details: physical therapy frequency: 1-2 times per week Vital Signs Vital Signs Vital Signs: Weight Weight: 101 lb Body Mass Index (BMI) 19.7 Physical Exam Const alert, oriented x3, no apparent distress, average body habitus and no limitations Constitutional Narrative: The patient's BMI is 19.7. She is of thin body habitus. General Appearance: cooperative, comfortable, well kempt and well developed Orientation / Consciousness: awake, oriented to person, oriented to place and oriented to time Exam Limitations: no limitations HEENT normocephalic, head/scalp atraumatic and hearing grossly normal bilaterally Head and Scalp: normal to inspection, normocephalic and atraumatic Face and Sinus: normal facial exam Nose: external nose normal External Ear: external ears normal Eyes EOMs intact bilaterally General Eye: normal appearance of both eyes Neck full ROM Resp normal respiratory effort, normal air movement, no retractions and no use of accessory muscles Effort and Inspection: able to speak in complete sentences Extremity no calf tenderness General Extremity: Negative for clubbing or cyanosis Skin Wound Narrative: The patient's lower extremities appear warm and well-perfused. Pedal pulses are easily palpable bilaterally. Visually, there is no significant swelling or edema in the patient's lower extremities. However, closer examination reveals slight pitting edema in the left lower extremity. The wound on the right pretibial surface remains completely healed and epithelialized. A wound remains on the left pretibial surface. It is full-thickness in nature. There is a small amount of bioburden. Dimensions are documented elsewhere. There has been little change or progress in recent weeks. [place] granulation tissue is noted at the periphery. The wound continues to be exudative, though in decreasing amounts. Wound margins are well beveled. A recent wound exists on the left lateral calf, the result of an inadvertent injury while doffing the patient's Tubigrip compression garment. As result, there is a recent full-thickness ulceration on the left lateral calf. Dimensions are documented elsewhere. This ulceration appears to be decreasing in size. There is no sign of infection or cellulitis. Ulcer margins appear well beveled. Hair: normal Neuro oriented x3, CN's II-XII intact bilaterally, moves all extremities, no focal motor deficits and no sensory deficits noted Sensorium / Orientation: awake, alert, oriented to person, oriented to place and oriented to time Speech: speech normal Psych Appearance: grossly normal and appropriate Attitude: calm Activity / Motor Behavior: appropriate eye contact Speech: normal speech Mood & Affect: euthymic mood Thought Process: normal thought process Thought Content: normal thought content Attention / Concentration: attention grossly intact Debridement Note Debridement Note Wound debrided: Left pretibial and left lateral calf wounds Laterality: Left Type of Debridement: Excisional debridement Anesthesia Used: 5% Lidocaine Gel and Cetacaine Depth: Down to and including healthy tissue and in the subcutaneous layer Percentage of wound debrided: 100 Instrument Used: 5mm curette Tissue Removed: Bioburden and nonviable tissue Severity: Fat Layer Exposed Amount of bleeding with debridement: Mild Bleeding Controlled with: Compression and gauze Patient tolerated procedure: Patient tolerated procedure well Post-Debridement Measurements and Additional Note: Post-Debridement Measurements/Treatment [facility] Nurse 1 - General Ulcer Assessment Start: 09/09/24 14:33 Freq: Status: Active Protocol: .AIMEE Activity Type Activity Date Activity User E-sign Co-sign Detail Recorded Client Recorded Date Recorded By Document 09/09/24 14:33 [facility] [id number] 09/09/24 14:36 [facility] 09/09/24 14:33 - Today's Visit Information Type of service 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 ) Arrival Mode Ambulatory Transfer Assistance None Patient Identification Verified (Name & Yes ) Patient Requires Transmission-Based No Precautions Height and Weight Body Mass Index (BMI) 19.7 BMI Classification Normal Vital Signs Temperature (97.8 F-99.1 F) 97.3 F L Temperature Source Temporal Pulse Rate (60-100) 76 Pulse Location Monitor Respiratory Rate (12-18) 16 Respiratory rate source Observation Oxygen Delivery Method Room Air Blood Pressure (90/60-120/80) 139/38 H Blood Pressure Mean 71 Source Monitor Position Sitting Blood Pressure Location Left Arm History Since Last Visit- (Skip if this is Patient's initial visit) Have you changed medications since your No last visit? Any new allergies or adverse reactions No Had a fall/change in ADL's that may No increase risk of falls Signs or symptoms of abuse and/or No neglect since last visit Have you been in the hospital since your No last visit? Has dressing in place as prescribed Yes Has compression in place as prescribed No Has offloadiing in place as prescribed N/A Experienced any changes in pain level or No management Left Footwear Regular Shoe Right Footwear Regular Shoe Pain Scale: 0-10 Numeric Is Patient Pain Free? Yes WC - Nurse 1 - General Ulcer Measurement Start: 09/09/24 14:33 Freq: Status: Active Protocol: Activity Type Activity Date Activity User E-sign Co-sign Detail Recorded Client Recorded Date Recorded By Document 09/09/24 14:33 [facility] [id number] 09/09/24 14:36 [facility] 09/09/24 14:33 [facility] Nurse 1 4. L thomason superior -Combined with other wound No -Current Size (cm) - Length 1 -Current Size (cm) - Width 0.5 -Current Size (cm) - Depth 0.1 -Total Square Cm 0.5 -Epithelialization Small 1-33% -Tunneling No -Undermining/Tunneling No -Circular Undermining No -Exudate Amt Medium -Exudate Type Serosanguineous -Wound Margin Distinct, Outline Attached -Granulation Amt Large (67-100%) -Granulation Quality [place] -Slough/Fibrin Yes -Necrosis Amt Small (1-33%) -Necrotic Tissue Type Adherent Slough -Texture (Joyce-wound Skin Appearance) Assessed, Scarring -Moisture (Joyce-wound Skin Appearance) Assessed,Dry/ Scaly -Color (Joyce-wound Skin Appearance) Assessed -Temperature (Joyce-wound Skin No Abnormality Appearance) (Pt Warm) -Tenderness on Palpation (Joyce-wound No Skin Appearance) -Ulcer Cleansing Rinsed/ Irrigated with Saline -Foul Odor after Cleansing No -Anesthetic Used 5% Lidocaine Gel #3 LLE INF -Combined with other wound No -Current Size (cm) - Length 0.9 -Current Size (cm) - Width 1 -Current Size (cm) - Depth 0.1 -Total Square Cm 0.9 -Epithelialization Small 1-33% -Tunneling No -Undermining/Tunneling No -Circular Undermining No -Exudate Amt Medium -Exudate Type Serosanguineous -Wound Margin Distinct, Outline Attached -Granulation Amt Large (67-100%) -Granulation Quality [place] -Slough/Fibrin Yes -Necrosis Amt Small (1-33%) -Necrotic Tissue Type Adherent Slough -Texture (Joyce-wound Skin Appearance) Assessed, Scarring -Moisture (Joyce-wound Skin Appearance) Assessed,Dry/ Scaly -Color (Joyce-wound Skin Appearance) Assessed -Temperature (Joyce-wound Skin No Abnormality Appearance) (Pt Warm) -Tenderness on Palpation (Joyce-wound No Skin Appearance) -Ulcer Cleansing Rinsed/ Irrigated with Saline -Foul Odor after Cleansing No -Anesthetic Used 5% Lidocaine Gel WC - Nurse 2 - General Ulcer CM Notes Start: 09/09/24 14:33 Freq: Status: Active Protocol: Activity Type Activity Date Activity User E-sign Co-sign Detail Recorded Client Recorded Date Recorded By Document 09/09/24 15:43 DS [id number] 09/09/24 15:48 DS 09/09/24 15:43 Wound Center Nurse 2 4. L thomason superior -Time 15:43 -Correct Patient Yes -Correct Side, Site, Position Yes -Correct Procedure Yes -Procedure Performed Yes -Type of Procedure Debridement -Clinical Debridement Subcutaneous -Tissue Removed Subcutaneous -Post Debridement (cm) - Length 1.0 -Post Debridement (cm) - Width 0.5 -Post Debridement (cm) - Depth 0.1 -Total Square (Post) (cm) 0.50 -Area of Debridement (cm) - Length 1.0 -Area of Debridement (cm) - Width 0.5 -Total Square (Area) (cm) 0.50 -Tunneling No -Undermining/Tunneling No -Circular Undermining No -Wound/Ulcer Outcome Not Healed -Ulcer Cleansing Rinsed/ Irrigated with Saline -Foul Odor after Cleansing No -Bioengineered Tissue No -Bleeding Controlled with Pressure -Treatment Response Procedure Tolerated Well -Debridement - Subq, 1st 20sq cm Yes #3 LLE INF -Time 15:43 -Correct Patient Yes -Correct Side, Site, Position Yes -Correct Procedure Yes -Procedure Performed Yes -Type of Procedure Debridement -Clinical Debridement Subcutaneous -Tissue Removed Subcutaneous -Post Debridement (cm) - Length 0.9 -Post Debridement (cm) - Width 1.0 -Post Debridement (cm) - Depth 0.1 -Total Square (Post) (cm) 0.90 -Area of Debridement (cm) - Length 0.9 -Area of Debridement (cm) - Width 1.0 -Total Square (Area) (cm) 0.90 -Tunneling No -Undermining/Tunneling No -Circular Undermining No -Wound/Ulcer Outcome Not Healed -Ulcer Cleansing Rinsed/ Irrigated with Saline -Foul Odor after Cleansing No -Bioengineered Tissue No -Bleeding Controlled with Pressure -Treatment Response Procedure Tolerated Well -Debridement - Subq, 1st 20sq cm No Pain Scale: 0-10 Numeric Is Patient Pain Free? Yes - Nurse 3 - General Ulcer D/C NN Start: 09/09/24 14:33 Freq: Status: Active Protocol: Activity Type Activity Date Activity User E-sign Co-sign Detail Recorded Client Recorded Date Recorded By Document 09/09/24 15:53 [id number] 09/09/24 15:53 09/09/24 15:53 Wound Care Center Nurse 3 4. L thomason superior -Primary Dressing Applied AMD Dressing 4x4 -AMD Dressing 4x4 1 #3 LLE INF -Primary Dressing Applied AMD Dressing 4x4 -AMD Dressing 4x4 1 LLE -Tubular Bandage Single Layer -Size of Tubigrip Used Size C -Size C ($) 1 Pain Scale: 0-10 Numeric Is Patient Pain Free? Yes WC - Visit Discharge Discharge Condition Stable Ambulatory Status Ambulatory Transportation Private Auto Medication Reconcilliation completed & No provided to patient/care provider Clinical Summary of Care Provided Yes Lab / Micro Data Attestation: I reviewed the patient's lab results. Labs: Laboratory Tests 09/03/24 12:00 WBC 3.7 L Hgb 12.9 Hct 39.0 Plt Count 301 Sodium 134 Potassium 4.3 Chloride 98 Carbon Dioxide 26.1 Anion Gap 10 BUN 12 Creatinine 0.61 L Glucose 97 Calcium 9.1 Total Bilirubin 0.43 AST 24 ALT 12 Alkaline Phosphatase 55 Total Protein 6.6 Albumin 4.4 Vitamin D 25-Hydroxy 43.0 TSH 1.360 Charges/Coding Procedures Integumentary [id number]: [id number] [place] subq tissue 20 sq cm/< Assessment/Plan Assessment/Plan (1) Non-pressure chronic ulcer of left lower leg with fat layer exposed: CODE(S): L97.922 - Non-pressure chronic ulcer of unspecified part of left lower leg with fat layer exposed (2) Traumatic open wound of left lower leg: CODE(S): S81.802A - Unspecified open wound, left lower leg, initial encounter QUALIFIERS: Encounter type: subsequent encounter Qualified Code(s): S81.802D - Unspecified open wound, left lower leg, subsequent encounter (3) Lumbar scoliosis: CODE(S): M41.9 - Scoliosis, unspecified QUALIFIERS: Scoliosis type: other secondary scoliosis Qualified Code(s): M41.56 - Other secondary scoliosis, lumbar region (4) Low back pain: CODE(S): M54.50 - Low back pain, unspecified (5) DDD (degenerative disc disease), lumbosacral: CODE(S): M51.37 - Other intervertebral disc degeneration, lumbosacral region (6) Hypothyroidism (acquired): CODE(S): E03.9 - Hypothyroidism, unspecified (7) Cataracts, bilateral: CODE(S): H26.9 - Unspecified cataract (8) History of tonsillectomy: CODE(S): Z90.89 - Acquired absence of other organs (9) History of IBS: CODE(S): Z87.19 - Personal history of other diseases of the digestive system (10) Former smoker: CODE(S): Z87.891 - Personal history of nicotine dependence (11) History of lumbar spinal fusion: CODE(S): Z98.1 - Arthrodesis status (12) History of hysterectomy: CODE(S): Z90.710 - Acquired absence of both cervix and uterus (13) History of cervical discectomy: CODE(S): Z98.890 - Other specified postprocedural states (14) History of total hip replacement: CODE(S): Z96.649 - Presence of unspecified artificial hip joint (15) Status post spinal disc removal: CODE(S): Z98.890 - Other specified postprocedural states PLAN: Plan This is a 74-year-old female who presented with traumatic wounds in both lower extremities. Although the patient does not relate significant swelling in her lower extremities, measures to prevent such swelling have been thoroughly discussed. The patient has been encouraged to elevate her lower extremities as much as possible. She has been advised to refrain from prolonged, idle sitting. She is to continue wearing her Tubigrips on a daily basis. Activity has been encouraged. The patient has been encouraged to optimize her nutritional intake. The patient attests to the fact that her appetite is good, and she is consuming a well-balanced diet. We are to implement the use of collagen hydrogel and Hunter antimicrobial foam dressing, which contains PHMB. This is to be applied topically on a daily basis. The patient has been instructed on appropriate means of application. Because of the lack of progress in healing related to the left pretibial ulceration, a swab culture was obtained at the patient's prior visit, the results of which demonstrate the growth of Staphylococcus epidermidis. Because of the lack of healing progress, an antibiotic is felt warranted. Based upon sensitivity results, the patient is to be prescribed Bactrim double strength, to be taken twice daily for 1 week. A noninvasive lower extremity arterial study was performed on June 13, 2024, the results of which revealed no evidence of significant arterial occlusive disease in the lower extremities. The patient is to return for reevaluation in 1 week. The use of allograft has been considered, but unlikely to be approved by the patient's insurance coverage in light of previous use of an allograft. Causes of delayed wound healing, such as malnutrition, anemia, and circulatory factors do not appear to be involved. Review of the patient's recent laboratory results suggest no significant abnormalities to account for healing delay. The patient does not appear to be anemic, serum protein and albumin appear normal, renal function is normal, etc. The patient is return in 1 week for reevaluation. Consideration may be given to a biopsy of the patient's ulceration if significant healing is not appreciated within the next several weeks. Total time: 25 minutes
[2024-09-16 14:37] VITALS: BP 122/60; PULSE 65; RESP 16; TEMP 36.5; BMI 19.7
--- NOTE | 2024-09-16 15:13 | WC ---
PHOTO 09/16/24 TRINA CANO
--- NOTE | 2024-09-16 15:41 | WC ---
PHOTO 09/16/24 TRINA CANO
--- NOTE | 2024-09-16 15:41 | WC ---
PHOTO 09/16/24 TRINA RUANO
--- NOTE | 2024-09-16 15:42 | WC ---
PHOTO 09/16/24 TRINA
--- NOTE | 2024-09-17 11:13 | PCM.WC.HP ---
History of Present Illness Date of Service: 09/16/24 Chief Complaint: Left lower extremity traumatic wounds History of Wound: This is a 74-year-old female who presented with traumatic wounds to both lower extremities. The wounds were located on the pretibial surfaces bilaterally. The wound on the right pretibial surface occurred approximately 1 month prior to presentation, resulting when the patient bumped her leg against a trash bin. The wound had failed to heal appropriately. More recently, approximately 10 days prior to presentation, the patient dropped a box of spaghetti noodles onto the left pretibial surface, resulting in a wound which had failed to heal. The patient was seen by her primary care physician, Dr. Lundberg, 4 days prior to presentation, where a course of Keflex and doxycycline were initiated. The patient has completed her course of antibiotics. 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 The patient is mobile and active. She denies swelling in her legs. She sleeps on a flat surface at night. She denies a history of thrombophlebitis. The patient denies a history of congestive heart failure, myocardial infarction, diabetes mellitus, cerebrovascular accident, hypertension, renal disease, and pulmonary disease. She has a history of hypothyroidism. A limited venous duplex examination is noted to have been performed on October 26, 2022, examining only the right lower extremity, and revealing no evidence of thrombophlebitis. Valvular competence was not fully evaluated. [facility] Medical History Traumatic open wound of right lower leg Traumatic open wound of left lower leg Non-pressure chronic ulcer of left lower leg with fat layer exposed Non-pressure chronic ulcer of right lower leg with fat layer exposed Traumatic open wound of right lower leg with delayed healing Traumatic open wound of left lower leg with delayed healing Wears glasses Anxiety Alcohol use History of steroid therapy Easy bruising Back pain Injury of back Migraine headache Syncope History of IBS Former smoker Leg cramps History of edema History of stress test Cataracts, bilateral Arthritis Anemia Vitamin D deficiency, unspecified Hypothyroidism Home Medications Medication Instructions Recorded Last Taken Type lidocaine 5 % topical patch 2 patch topical DAILY 05/03/17 1 Day Ago History ~09/21/17 meloxicam 15 mg tablet 15 mg PO QDAY 05/03/17 09/22/17 History doxepin 10 mg capsule 10 mg PO QHS 12/16/19 Unknown History folic acid 400 mcg tablet 0.4 mg PO DAILY@0800 12/16/19 Unknown History linaclotide 145 mcg capsule 145 mcg PO DAILY 12/16/19 Unknown History estradiol 0.1 mg/24 hr semiweekly 2 patch transdermal MOTH 03/15/20 Unknown History transdermal patch (Bessie) acetaminophen 500 mg tablet 1,000 mg PO BID 01/06/22 Unknown History vitamin [id number] B1 100 mg-1 1 ml IM .QMO 01/06/22 Unknown History mg/mL intramuscular solution levothyroxine 50 mcg tablet 50 mcg PO DAILY 03/18/24 Unknown History gabapentin 100 mg capsule 100 mg PO BID 05/07/24 Unknown History loratadine 10 mg tablet 10 mg PO .prn 05/07/24 Unknown History sulfamethoxazole 800 1 tab PO Q12H #14 tabs 05/27/24 Unknown Rx mg-trimethoprim 160 mg tablet (Bactrim DS) cephalexin 500 mg capsule 500 mg PO 4X/DAY 07/08/24 Unknown History doxycycline hyclate 100 mg tablet 100 mg PO BID 07/08/24 Unknown History sulfamethoxazole 800 1 tab PO Q12H #14 tabs 07/08/24 Unknown Rx mg-trimethoprim 160 mg tablet (Bactrim DS) sulfamethoxazole 800 1 tab PO Q12H wound infection #14 09/10/24 Unknown Rx mg-trimethoprim 160 mg tablet tabs (Bactrim DS) Allergy/AdvReac Type Severity Reaction Status Date / Time No Known Allergies Allergy Verified 05/07/24 11:09 Family History Mother Rheumatoid arthritis Father Pancreatic cancer Cancer Grandfather Myocardial infarction Grandmother Thyroid disorder Surgical History Status post spinal disc removal History of tonsillectomy History of lumbar spinal fusion History of total hip replacement History of hysterectomy History of cervical discectomy Social History household members: spouse Smoking Status: Never smoker alcohol intake: current alcohol intake frequency: a few times a week Alcohol type: wine substance use type: does not use what type of physical activity do you participate in: other details: physical therapy frequency: 1-2 times per week Vital Signs Vital Signs Vital Signs: 09/16/24 14:37 Temperature 97.7 F L Temperature Source Temporal Pulse Rate 65 Respiratory Rate 16 Blood Pressure 122/60 H Blood Pressure Mean 80 Blood Pressure Source Monitor Blood Pressure Position Sitting Blood Pressure Location Left Arm Oxygen Delivery Method Room Air Weight Weight: 101 lb Body Mass Index (BMI) 19.7 Physical Exam Const alert, oriented x3, no apparent distress, average body habitus and no limitations Constitutional Narrative: The patient's BMI is 19.7. She is of thin body habitus. General Appearance: cooperative, comfortable, well kempt and well developed Orientation / Consciousness: awake, oriented to person, oriented to place and oriented to time Exam Limitations: no limitations HEENT normocephalic, head/scalp atraumatic and hearing grossly normal bilaterally Head and Scalp: normal to inspection, normocephalic and atraumatic Face and Sinus: normal facial exam Nose: external nose normal External Ear: external ears normal Eyes EOMs intact bilaterally General Eye: normal appearance of both eyes Neck full ROM Resp normal respiratory effort, normal air movement, no retractions and no use of accessory muscles Effort and Inspection: able to speak in complete sentences Extremity no calf tenderness General Extremity: Negative for clubbing or cyanosis Skin Wound Narrative: The patient's lower extremities appear warm and well-perfused. Pedal pulses are easily palpable bilaterally. There is no significant swelling or edema in the patient's lower extremities. The wound on the right pretibial surface remains completely healed and epithelialized. A wound remains on the left pretibial surface. It is full-thickness in nature. There is a small amount of bioburden. Dimensions are documented elsewhere. There has been improvement within the last week. There is evidence of peripheral epithelialization, with a decrease in the size of the wound. Pittman granulation tissue is noted at the base of the wound. Wound margins are well beveled. A recent wound exists on the left lateral calf, the result of an inadvertent injury while doffing the patient's Tubigrip compression garment. As result, there is a recent full-thickness ulceration on the left lateral calf. Dimensions are documented elsewhere. This ulceration appears to be decreasing in size. There is no sign of infection or cellulitis. Ulcer margins appear well beveled. Hair: normal Neuro oriented x3, CN's II-XII intact bilaterally, moves all extremities, no focal motor deficits and no sensory deficits noted Sensorium / Orientation: awake, alert, oriented to person, oriented to place and oriented to time Speech: speech normal Psych Appearance: grossly normal and appropriate Attitude: calm Activity / Motor Behavior: appropriate eye contact Speech: normal speech Mood & Affect: euthymic mood Thought Process: normal thought process Thought Content: normal thought content Attention / Concentration: attention grossly intact Debridement Note Debridement Note Wound debrided: Left pretibial and left lateral calf wounds Laterality: Left Type of Debridement: Excisional debridement Anesthesia Used: 5% Lidocaine Gel and Cetacaine Depth: Down to and including healthy tissue and in the subcutaneous layer Percentage of wound debrided: 100 Instrument Used: 5mm curette Tissue Removed: Bioburden and nonviable tissue Severity: Fat Layer Exposed Amount of bleeding with debridement: Mild Bleeding Controlled with: Compression and gauze Patient tolerated procedure: Patient tolerated procedure well Post-Debridement Measurements and Additional Note: Post-Debridement Measurements/Treatment - Nurse 1 - General Ulcer Assessment Start: 09/09/24 14:33 Freq: Status: Active Protocol: .EcolibriumT Activity Type Activity Date Activity User E-sign Co-sign Detail Recorded Client Recorded Date Recorded By Document 09/09/24 14:33 [facility] [id number] 09/09/24 14:36 [facility] Document 09/16/24 14:37 [facility] [id number] 09/16/24 14:46 [facility] 09/09/24 09/16/24 14:33 14:37 - Today's Visit Information Type of service Follow-up Visit Follow-up Visit (Physician/AUDIOLOGY DOCTOR (Physician/AUDIOLOGY DOCTOR ) ) Arrival Mode Ambulatory Ambulatory Transfer Assistance None None Patient Identification Verified (Name & Yes Yes ) Patient Requires Transmission-Based No No Precautions Height and Weight Body Mass Index (BMI) 19.7 19.7 BMI Classification Normal Normal Vital Signs Temperature (97.8 F-99.1 F) 97.3 F L 97.7 F L Temperature Source Temporal Temporal Pulse Rate (60-100) 76 65 Pulse Location Monitor Monitor Respiratory Rate (12-18) 16 16 Respiratory rate source Observation Observation Oxygen Delivery Method Room Air Room Air Blood Pressure (90/60-120/80) 139/38 H 122/60 H Blood Pressure Mean 71 80 Source Monitor Monitor Position Sitting Sitting Blood Pressure Location Left Arm Left Arm History Since Last Visit- (Skip if this is Patient's initial visit) Have you changed medications since your No No last visit? Any new allergies or adverse reactions No No Had a fall/change in ADL's that may No No increase risk of falls Signs or symptoms of abuse and/or No No neglect since last visit Have you been in the hospital since your No No last visit? Has dressing in place as prescribed Yes Yes Has compression in place as prescribed No N/A Has offloadiing in place as prescribed N/A No Experienced any changes in pain level or No No management Left Footwear Regular Shoe Regular Shoe Right Footwear Regular Shoe Regular Shoe Pain Scale: 0-10 Numeric Is Patient Pain Free? Yes Yes WC - Nurse 1 - General Ulcer Measurement Start: 09/09/24 14:33 Freq: Status: Active Protocol: Activity Type Activity Date Activity User E-sign Co-sign Detail Recorded Client Recorded Date Recorded By Document 09/09/24 14:33 [facility] [id number] 09/09/24 14:36 [facility] Document 09/16/24 14:37 [facility] [id number] 09/16/24 14:46 [facility] 09/09/24 09/16/24 14:33 14:37 Wound Center Nurse 1 4. L thomason superior -Combined with other wound No No -Current Size (cm) - Length 1 0.9 -Current Size (cm) - Width 0.5 0.3 -Current Size (cm) - Depth 0.1 0.1 -Total Square Cm 0.5 0.27 -Date of Last Picture (Recall this 09/16/24 field) -Photo Taken Yes -Epithelialization Small 1-33% Small 1-33% -Tunneling No No -Undermining/Tunneling No No -Circular Undermining No No -Exudate Amt Medium Medium -Exudate Type Serosanguineous Serosanguineous -Wound Margin Distinct, Distinct, Outline Outline Attached Attached -Granulation Amt Large (67-100%) Large (67-100%) -Granulation Quality Pittman Red -Slough/Fibrin Yes Yes -Necrosis Amt Small (1-33%) Small (1-33%) -Necrotic Tissue Type Adherent Slough Adherent Slough -Texture (Joyce-wound Skin Appearance) Assessed, Assessed, Scarring Scarring -Moisture (Joyce-wound Skin Appearance) Assessed,Dry/ Assessed,Dry/ Scaly Scaly -Color (Joyce-wound Skin Appearance) Assessed Assessed -Temperature (Joyce-wound Skin No Abnormality No Abnormality Appearance) (Pt Warm) (Pt Warm) -Tenderness on Palpation (Joyce-wound No No Skin Appearance) -Ulcer Cleansing Rinsed/ Soap and Water Irrigated with Saline -Foul Odor after Cleansing No No -Anesthetic Used 5% Lidocaine 5% Lidocaine Gel Gel #3 LLE INF -Combined with other wound No No -Current Size (cm) - Length 0.9 0.4 -Current Size (cm) - Width 1 0.6 -Current Size (cm) - Depth 0.1 0.1 -Total Square Cm 0.9 0.24 -Date of Last Picture (Recall this 09/16/24 field) -Photo Taken Yes -Epithelialization Small 1-33% Small 1-33% -Tunneling No No -Undermining/Tunneling No No -Circular Undermining No No -Exudate Amt Medium Medium -Exudate Type Serosanguineous Serosanguineous -Wound Margin Distinct, Distinct, Outline Outline Attached Attached -Granulation Amt Large (67-100%) Small (1-33%) -Granulation Quality Pittman Pittman -Slough/Fibrin Yes Yes -Necrosis Amt Small (1-33%) Medium (34-66%) -Necrotic Tissue Type Adherent Slough Adherent Slough -Texture (Joyce-wound Skin Appearance) Assessed, Assessed, Scarring Scarring -Moisture (Joyce-wound Skin Appearance) Assessed,Dry/ Assessed,Dry/ Scaly Scaly -Color (Joyce-wound Skin Appearance) Assessed Assessed -Temperature (Joyce-wound Skin No Abnormality No Abnormality Appearance) (Pt Warm) (Pt Warm) -Tenderness on Palpation (Joyce-wound No No Skin Appearance) -Ulcer Cleansing Rinsed/ Soap and Water Irrigated with Saline -Foul Odor after Cleansing No No -Anesthetic Used 5% Lidocaine 5% Lidocaine Gel Gel WC - Nurse 2 - General Ulcer CM Notes Start: 09/09/24 14:33 Freq: Status: Active Protocol: Activity Type Activity Date Activity User E-sign Co-sign Detail Recorded Client Recorded Date Recorded By Document 09/09/24 15:43 DS [id number] 09/09/24 15:48 DS Document 09/16/24 15:11 DS [id number] 09/16/24 15:17 DS 09/09/24 09/16/24 15:43 15:11 Wound Center Nurse 2 4. Sharon thomason superior -Time 15:43 15:11 -Correct Patient Yes Yes -Correct Side, Site, Position Yes Yes -Correct Procedure Yes Yes -Procedure Performed Yes Yes -Type of Procedure Debridement Debridement -Clinical Debridement Subcutaneous Subcutaneous -Tissue Removed Subcutaneous Subcutaneous -Post Debridement (cm) - Length 1.0 1.0 -Post Debridement (cm) - Width 0.5 0.5 -Post Debridement (cm) - Depth 0.1 0.1 -Total Square (Post) (cm) 0.50 0.50 -Area of Debridement (cm) - Length 1.0 1.0 -Area of Debridement (cm) - Width 0.5 0.5 -Total Square (Area) (cm) 0.50 0.50 -Tunneling No No -Undermining/Tunneling No No -Circular Undermining No No -Wound/Ulcer Outcome Not Healed Not Healed -Ulcer Cleansing Rinsed/ Rinsed/ Irrigated with Irrigated with Saline Saline -Foul Odor after Cleansing No No -Bioengineered Tissue No No -Bleeding Controlled with Pressure Pressure -Treatment Response Procedure Procedure Tolerated Well Tolerated Well -Debridement - Subq, 1st 20sq cm Yes No #3 LLE INF -Time 15:43 15:11 -Correct Patient Yes Yes -Correct Side, Site, Position Yes Yes -Correct Procedure Yes Yes -Procedure Performed Yes Yes -Type of Procedure Debridement Debridement -Clinical Debridement Subcutaneous Subcutaneous -Tissue Removed Subcutaneous Subcutaneous -Post Debridement (cm) - Length 0.9 0.4 -Post Debridement (cm) - Width 1.0 0.4 -Post Debridement (cm) - Depth 0.1 0.1 -Total Square (Post) (cm) 0.90 0.16 -Area of Debridement (cm) - Length 0.9 0.4 -Area of Debridement (cm) - Width 1.0 0.4 -Total Square (Area) (cm) 0.90 0.16 -Tunneling No No -Undermining/Tunneling No No -Circular Undermining No No -Wound/Ulcer Outcome Not Healed Not Healed -Ulcer Cleansing Rinsed/ Rinsed/ Irrigated with Irrigated with Saline Saline -Foul Odor after Cleansing No No -Bioengineered Tissue No No -Bleeding Controlled with Pressure Pressure -Treatment Response Procedure Procedure Tolerated Well Tolerated Well -Debridement - Subq, 1st 20sq cm No Yes Pain Scale: 0-10 Numeric Is Patient Pain Free? Yes Yes - Nurse 3 - General Ulcer D/C NN Start: 09/09/24 14:33 Freq: Status: Active Protocol: Activity Type Activity Date Activity User E-sign Co-sign Detail Recorded Client Recorded Date Recorded By Document 09/09/24 15:53 [id number] 09/09/24 15:53 Document 09/16/24 15:22 [facility] [id number] 09/16/24 15:24 [facility] 09/09/24 09/16/24 15:53 15:22 Wound Care Center Nurse 3 4. L thomason superior -Ulcer Cleansing Rinsed/ Irrigated with Saline -Foul Odor after Cleansing No -Primary Dressing Applied AMD Dressing AMD Dressing 4x4 4x4,Silicone Border Foam 4x4 -AMD Dressing 4x4 1 1 -Silicone Border Foam 4x4 1 #3 LLE INF -Ulcer Cleansing Rinsed/ Irrigated with Saline -Foul Odor after Cleansing No -Primary Dressing Applied AMD Dressing AMD Dressing 4x4 4x4,Silicone Border Foam 4x4 -AMD Dressing 4x4 1 1 -Silicone Border Foam 4x4 1 LLE -Tubular Bandage Single Layer -Size of Tubigrip Used Size C -Size C ($) 1 -Other reapplied pts own tubigrip Treatment Response Procedure Tolerated Well Pain Scale: 0-10 Numeric Is Patient Pain Free? Yes Yes - Visit Discharge Discharge Condition Stable Stable Ambulatory Status Ambulatory Ambulatory Transportation Private Auto Private Auto Medication Reconcilliation completed & No provided to patient/care provider Clinical Summary of Care Provided Yes Charges/Coding Procedures Integumentary [id number]: [id number] Violette subq tissue 20 sq cm/< Assessment/Plan Assessment/Plan (1) Non-pressure chronic ulcer of left lower leg with fat layer exposed: CODE(S): L97.922 - Non-pressure chronic ulcer of unspecified part of left lower leg with fat layer exposed (2) Traumatic open wound of left lower leg: CODE(S): S81.802A - Unspecified open wound, left lower leg, initial encounter QUALIFIERS: Encounter type: subsequent encounter Qualified Code(s): S81.802D - Unspecified open wound, left lower leg, subsequent encounter (3) Lumbar scoliosis: CODE(S): M41.9 - Scoliosis, unspecified QUALIFIERS: Scoliosis type: other secondary scoliosis Qualified Code(s): M41.56 - Other secondary scoliosis, lumbar region (4) Low back pain: CODE(S): M54.50 - Low back pain, unspecified (5) DDD (degenerative disc disease), lumbosacral: CODE(S): M51.37 - Other intervertebral disc degeneration, lumbosacral region (6) Hypothyroidism (acquired): CODE(S): E03.9 - Hypothyroidism, unspecified (7) Cataracts, bilateral: CODE(S): H26.9 - Unspecified cataract (8) History of tonsillectomy: CODE(S): Z90.89 - Acquired absence of other organs (9) History of IBS: CODE(S): Z87.19 - Personal history of other diseases of the digestive system (10) Former smoker: CODE(S): Z87.891 - Personal history of nicotine dependence (11) History of lumbar spinal fusion: CODE(S): Z98.1 - Arthrodesis status (12) History of hysterectomy: CODE(S): Z90.710 - Acquired absence of both cervix and uterus (13) History of cervical discectomy: CODE(S): Z98.890 - Other specified postprocedural states (14) History of total hip replacement: CODE(S): Z96.649 - Presence of unspecified artificial hip joint (15) Status post spinal disc removal: CODE(S): Z98.890 - Other specified postprocedural states PLAN: Plan This is a 74-year-old female who presented with traumatic wounds in both lower extremities. Although the patient does not relate significant swelling in her lower extremities, measures to prevent such swelling have been thoroughly discussed. The patient has been encouraged to elevate her lower extremities as much as possible. She has been advised to refrain from prolonged, idle sitting. She is to continue wearing her Tubigrips on a daily basis. Activity has been encouraged. The patient has been encouraged to optimize her nutritional intake. The patient attests to the fact that her appetite is good, and she is consuming a well-balanced diet. We are to continue the use of collagen hydrogel and Hunter antimicrobial foam dressing, which contains PHMB. This is to be applied topically on a daily basis. The patient has been instructed on appropriate means of application. Because of the lack of progress in healing related to the left pretibial ulceration, a swab culture was obtained at the patient's prior visit, the results of which demonstrate the growth of Staphylococcus epidermidis. Because of the lack of healing progress, an antibiotic was felt warranted. Based upon sensitivity results, Bactrim double-strength was prescribed, the course of which is now nearly completed. A noninvasive lower extremity arterial study was performed on June 13, 2024, the results of which revealed no evidence of significant arterial occlusive disease in the lower extremities. The patient is to return for reevaluation in 1 week. The use of allograft has been considered, but unlikely to be approved by the patient's insurance coverage in light of previous use of an allograft. Causes of delayed wound healing, such as malnutrition, anemia, and circulatory factors do not appear to be involved. Review of the patient's recent laboratory results suggest no significant abnormalities to account for healing delay. The patient does not appear to be anemic, serum protein and albumin appear normal, renal function is normal, etc. The patient is to return in 1 week for reevaluation. Consideration may be given to a biopsy of the patient's ulceration if significant healing is not appreciated within the next several weeks. However, improvement has been noted within the last week, with the initiation of a PHMB topical dressing. Total time: 24 minutes
[2024-09-23 15:05] VITALS: BP 139/80; PULSE 71; RESP 14; TEMP 36.5; BMI 19.7
--- NOTE | 2024-09-24 08:49 | WC ---
PHOTO 09/23/24 TRINA
--- NOTE | 2024-09-24 08:49 | WC ---
PHOTO 09/23/24 TRINA
--- NOTE | 2024-09-24 08:50 | WC ---
PHOTO 09/23/24 CHRISTIANO
--- NOTE | 2024-09-25 17:20 | PCM.WC.HP ---
History of Present Illness Date of Service: 09/23/24 Chief Complaint: Left lower extremity traumatic wounds History of Wound: This is a 74-year-old female who presented with traumatic wounds to both lower extremities. The wounds were located on the pretibial surfaces bilaterally. The wound on the right pretibial surface occurred approximately 1 month prior to presentation, resulting when the patient bumped her leg against a trash bin. The wound had failed to heal appropriately. More recently, approximately 10 days prior to presentation, the patient dropped a box of spaghetti noodles onto the left pretibial surface, resulting in a wound which had failed to heal. The patient was seen by her primary care physician, Dr. Lundberg, 4 days prior to presentation, where a course of Keflex and doxycycline were initiated. The patient has completed her course of antibiotics. 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 The patient is mobile and active. She denies swelling in her legs. She sleeps on a flat surface at night. She denies a history of thrombophlebitis. The patient denies a history of congestive heart failure, myocardial infarction, diabetes mellitus, cerebrovascular accident, hypertension, renal disease, and pulmonary disease. She has a history of hypothyroidism. A limited venous duplex examination is noted to have been performed on October 26, 2022, examining only the right lower extremity, and revealing no evidence of thrombophlebitis. Valvular competence was not fully evaluated. [facility] Medical History Traumatic open wound of right lower leg Traumatic open wound of left lower leg Non-pressure chronic ulcer of left lower leg with fat layer exposed Non-pressure chronic ulcer of right lower leg with fat layer exposed Traumatic open wound of right lower leg with delayed healing Traumatic open wound of left lower leg with delayed healing Wears glasses Anxiety Alcohol use History of steroid therapy Easy bruising Back pain Injury of back Migraine headache Syncope History of IBS Former smoker Leg cramps History of edema History of stress test Cataracts, bilateral Arthritis Anemia Vitamin D deficiency, unspecified Hypothyroidism Home Medications Medication Instructions Recorded Last Taken Type lidocaine 5 % topical patch 2 patch topical DAILY 05/03/17 1 Day Ago History ~09/21/17 meloxicam 15 mg tablet 15 mg PO QDAY 05/03/17 09/22/17 History doxepin 10 mg capsule 10 mg PO QHS 12/16/19 Unknown History folic acid 400 mcg tablet 0.4 mg PO DAILY@0800 12/16/19 Unknown History linaclotide 145 mcg capsule 145 mcg PO DAILY 12/16/19 Unknown History estradiol 0.1 mg/24 hr semiweekly 2 patch transdermal MOTH 03/15/20 Unknown History transdermal patch (Bessie) acetaminophen 500 mg tablet 1,000 mg PO BID 01/06/22 Unknown History vitamin [id number] B1 100 mg-1 1 ml IM .QMO 01/06/22 Unknown History mg/mL intramuscular solution levothyroxine 50 mcg tablet 50 mcg PO DAILY 03/18/24 Unknown History gabapentin 100 mg capsule 100 mg PO BID 05/07/24 Unknown History loratadine 10 mg tablet 10 mg PO .prn 05/07/24 Unknown History sulfamethoxazole 800 1 tab PO Q12H #14 tabs 05/27/24 Unknown Rx mg-trimethoprim 160 mg tablet (Bactrim DS) cephalexin 500 mg capsule 500 mg PO 4X/DAY 07/08/24 Unknown History doxycycline hyclate 100 mg tablet 100 mg PO BID 07/08/24 Unknown History sulfamethoxazole 800 1 tab PO Q12H #14 tabs 07/08/24 Unknown Rx mg-trimethoprim 160 mg tablet (Bactrim DS) sulfamethoxazole 800 1 tab PO Q12H wound infection #14 09/10/24 Unknown Rx mg-trimethoprim 160 mg tablet tabs (Bactrim DS) Allergy/AdvReac Type Severity Reaction Status Date / Time No Known Allergies Allergy Verified 05/07/24 11:09 Family History Mother Rheumatoid arthritis Father Pancreatic cancer Cancer Grandfather Myocardial infarction Grandmother Thyroid disorder Surgical History Status post spinal disc removal History of tonsillectomy History of lumbar spinal fusion History of total hip replacement History of hysterectomy History of cervical discectomy Social History household members: spouse Smoking Status: Never smoker alcohol intake: current alcohol intake frequency: a few times a week Alcohol type: wine substance use type: does not use what type of physical activity do you participate in: other details: physical therapy frequency: 1-2 times per week Vital Signs Vital Signs Vital Signs: Weight Weight: 101 lb Body Mass Index (BMI) 19.7 Physical Exam Const alert, oriented x3, no apparent distress, average body habitus and no limitations Constitutional Narrative: The patient's BMI is 19.7. She is of thin body habitus. General Appearance: cooperative, comfortable, well kempt and well developed Orientation / Consciousness: awake, oriented to person, oriented to place and oriented to time Exam Limitations: no limitations HEENT normocephalic, head/scalp atraumatic and hearing grossly normal bilaterally Head and Scalp: normal to inspection, normocephalic and atraumatic Face and Sinus: normal facial exam Nose: external nose normal External Ear: external ears normal Eyes EOMs intact bilaterally General Eye: normal appearance of both eyes Neck full ROM Resp normal respiratory effort, normal air movement, no retractions and no use of accessory muscles Effort and Inspection: able to speak in complete sentences Extremity no calf tenderness General Extremity: Negative for clubbing or cyanosis Skin Wound Narrative: The patient's lower extremities appear warm and well-perfused. Pedal pulses are easily palpable bilaterally. There is no significant swelling or edema in the patient's lower extremities. The upper wound on the patient's left lower extremity appears to be completely healed and epithelialized. The remaining wound appears smaller in size, with evidence of peripheral epithelialization. There is a small amount of bioburden, though pink, healthy granulation tissue is noted. Dimensions are documented elsewhere. This wound is full-thickness in nature. There has been improvement within the last week. There is now a new wound on the patient's right pretibial surface, the result of a traumatic impact against her brothers wheelchair. This wound has occurred within the last week. It appears to be an avulsion wound, with an avulsion flap which is partially adherent, though largely nonviable. Dimensions are documented elsewhere. There is no sign of infection or cellulitis. The wound appears to be full-thickness in nature. Subcutaneous ecchymosis is noted on the medial aspect of the right supramalleolar area, distal to the recent wound. Hair: normal Neuro oriented x3, CN's II-XII intact bilaterally, moves all extremities, no focal motor deficits and no sensory deficits noted Sensorium / Orientation: awake, alert, oriented to person, oriented to place and oriented to time Speech: speech normal Psych Appearance: grossly normal and appropriate Attitude: calm Activity / Motor Behavior: appropriate eye contact Speech: normal speech Mood & Affect: euthymic mood Thought Process: normal thought process Thought Content: normal thought content Attention / Concentration: attention grossly intact Debridement Note Debridement Note Wound debrided: Traumatic left pretibial wound Laterality: Left Type of Debridement: Excisional debridement Anesthesia Used: 5% Lidocaine Gel and Cetacaine Depth: Down to and including healthy tissue and in the subcutaneous layer Percentage of wound debrided: 100 Instrument Used: 3mm curette Tissue Removed: Bioburden and nonviable tissue Severity: Fat Layer Exposed Amount of bleeding with debridement: Mild Bleeding Controlled with: Compression and gauze Patient tolerated procedure: Patient tolerated procedure well Debridement Free Text: With respect to the debridement of the patient's new right lower extremity traumatic wound, it is noted to be full-thickness in nature. There is a devitalized, partially adherent skin flap. This devitalized flap has been sharply excised. Using a forceps and a sterile scissors, the devitalized skin flap was excised at its base, leaving a residual wound which is generally pink and healthy in appearance, and which was debrided using a 3 mm sterile curette. The procedure was well-tolerated. Post-Debridement Measurements and Additional Note: Post-Debridement Measurements/Treatment - Nurse 1 - General Ulcer Assessment Start: 09/09/24 14:33 Freq: Status: Active Protocol: WC.LOWSTEVENT Activity Type Activity Date Activity User E-sign Co-sign Detail Recorded Client Recorded Date Recorded By Document 09/09/24 14:33 [facility] [id number] 09/09/24 14:36 [facility] Document 09/16/24 14:37 [facility] [id number] 09/16/24 14:46 [facility] Document 09/23/24 15:05 ML [id number] 09/23/24 15:09 ML 09/09/24 09/16/24 09/23/24 14:33 14:37 15:05 - Today's Visit Information Type of service Follow-up Visit Follow-up Visit (Physician/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 (Physician/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 ) ) Arrival Mode Ambulatory Ambulatory Ambulatory Transfer Assistance None None Patient Identification Verified (Name & Yes Yes Yes ) Patient Requires Transmission-Based No No No Precautions Height and Weight Body Mass Index (BMI) 19.7 19.7 19.7 BMI Classification Normal Normal Normal Vital Signs Temperature (97.8 F-99.1 F) 97.3 F L 97.7 F L 97.7 F L Temperature Source Temporal Temporal Temporal Pulse Rate (60-100) 76 65 71 Pulse Location Monitor Monitor Monitor Respiratory Rate (12-18) 16 16 14 Respiratory rate source Observation Observation Observation Oxygen Delivery Method Room Air Room Air Blood Pressure (90/60-120/80) 139/38 H 122/60 H 139/80 H Blood Pressure Mean 71 80 99 Source Monitor Monitor Monitor Position Sitting Sitting Supine Blood Pressure Location Left Arm Left Arm Left Arm History Since Last Visit- (Skip if this is Patient's initial visit) Have you changed medications since your No No No last visit? Any new allergies or adverse reactions No No No Had a fall/change in ADL's that may No No No increase risk of falls Signs or symptoms of abuse and/or No No No neglect since last visit Have you been in the hospital since your No No No last visit? Has dressing in place as prescribed Yes Yes No Has compression in place as prescribed No N/A N/A Has offloadiing in place as prescribed N/A No N/A Experienced any changes in pain level or No No No management Left Footwear Regular Shoe Regular Shoe Right Footwear Regular Shoe Regular Shoe Pain Scale: 0-10 Numeric Is Patient Pain Free? Yes Yes Yes WC - Nurse 1 - General Ulcer Measurement Start: 09/09/24 14:33 Freq: Status: Active Protocol: Activity Type Activity Date Activity User E-sign Co-sign Detail Recorded Client Recorded Date Recorded By Document 09/09/24 14:33 [facility] [id number] 09/09/24 14:36 [facility] Document 09/16/24 14:37 [facility] [id number] 09/16/24 14:46 [facility] Document 09/23/24 15:05 ML [id number] 09/23/24 15:09 ML 09/09/24 09/16/24 09/23/24 14:33 14:37 15:05 Wound Center Nurse 1 #4 Rt med le -Current Size (cm) - Length 3 -Current Size (cm) - Width 3.5 -Current Size (cm) - Depth 0.1 -Total Square Cm 10.5 -Exudate Amt Medium -Exudate Type Serosanguineous -Wound Margin Distinct, Outline Attached -Granulation Amt None Present (0 %) -Slough/Fibrin Yes -Necrotic Tissue Type Adherent Slough -Texture (Joyce-wound Skin Appearance) Assessed -Moisture (Joyce-wound Skin Appearance) Assessed -Color (Joyce-wound Skin Appearance) Assessed -Temperature (Joyce-wound Skin No Abnormality Appearance) (Pt Warm) -Tenderness on Palpation (Joyce-wound Yes Skin Appearance) -Ulcer Cleansing Rinsed/ Irrigated with Saline -Foul Odor after Cleansing No -Anesthetic Used 5% Lidocaine Gel 4. L thomason superior -Combined with other wound No No -Current Size (cm) - Length 1 0.9 0.1 -Current Size (cm) - Width 0.5 0.3 0.1 -Current Size (cm) - Depth 0.1 0.1 0.1 -Total Square Cm 0.5 0.27 0.01 -Date of Last Picture (Recall this 09/16/24 field) -Photo Taken Yes -Epithelialization Small 1-33% Small 1-33% -Tunneling No No -Undermining/Tunneling No No -Circular Undermining No No -Exudate Amt Medium Medium None Present -Exudate Type Serosanguineous Serosanguineous -Wound Margin Distinct, Distinct, Outline Outline Attached Attached -Granulation Amt Large (67-100%) Large (67-100%) Large (67-100%) -Granulation Quality White Horse Red -Slough/Fibrin Yes Yes No -Necrosis Amt Small (1-33%) Small (1-33%) None Present (0 %) -Necrotic Tissue Type Adherent Slough Adherent Slough -Texture (Joyce-wound Skin Appearance) Assessed, Assessed, Assessed Scarring Scarring -Moisture (Joyce-wound Skin Appearance) Assessed,Dry/ Assessed,Dry/ Assessed Scaly Scaly -Color (Joyce-wound Skin Appearance) Assessed Assessed Assessed -Temperature (Joyce-wound Skin No Abnormality No Abnormality No Abnormality Appearance) (Pt Warm) (Pt Warm) (Pt Warm) -Tenderness on Palpation (Joyce-wound No No No Skin Appearance) -Ulcer Cleansing Rinsed/ Soap and Water Rinsed/ Irrigated with Irrigated with Saline Saline -Foul Odor after Cleansing No No -Anesthetic Used 5% Lidocaine 5% Lidocaine 5% Lidocaine Gel Gel Gel #3 LLE INF -Combined with other wound No No -Current Size (cm) - Length 0.9 0.4 0.1 -Current Size (cm) - Width 1 0.6 0.1 -Current Size (cm) - Depth 0.1 0.1 0.1 -Total Square Cm 0.9 0.24 0.01 -Date of Last Picture (Recall this 09/16/24 field) -Photo Taken Yes -Epithelialization Small 1-33% Small 1-33% -Tunneling No No -Undermining/Tunneling No No -Circular Undermining No No -Exudate Amt Medium Medium None Present -Exudate Type Serosanguineous Serosanguineous -Wound Margin Distinct, Distinct, Outline Outline Attached Attached -Granulation Amt Large (67-100%) Small (1-33%) None Present (0 %) -Granulation Quality White Horse White Horse -Slough/Fibrin Yes Yes No -Necrosis Amt Small (1-33%) Medium (34-66%) None Present (0 %) -Necrotic Tissue Type Adherent Slough Adherent Slough Adherent Slough -Texture (Joyce-wound Skin Appearance) Assessed, Assessed, Assessed Scarring Scarring -Moisture (Joyce-wound Skin Appearance) Assessed,Dry/ Assessed,Dry/ Assessed Scaly Scaly -Color (Joyce-wound Skin Appearance) Assessed Assessed Assessed -Temperature (Joyce-wound Skin No Abnormality No Abnormality No Abnormality Appearance) (Pt Warm) (Pt Warm) (Pt Warm) -Tenderness on Palpation (Joyce-wound No No Yes Skin Appearance) -Ulcer Cleansing Rinsed/ Soap and Water Rinsed/ Irrigated with Irrigated with Saline Saline -Foul Odor after Cleansing No No No -Anesthetic Used 5% Lidocaine 5% Lidocaine 5% Lidocaine Gel Gel Gel WC - Nurse 2 - General Ulcer CM Notes Start: 09/09/24 14:33 Freq: Status: Active Protocol: Activity Type Activity Date Activity User E-sign Co-sign Detail Recorded Client Recorded Date Recorded By Document 09/09/24 15:43 DS [id number] 09/09/24 15:48 DS Document 09/16/24 15:11 DS [id number] 09/16/24 15:17 DS Document 09/23/24 15:57 DS [id number] 09/23/24 16:02 DS 09/09/24 09/16/24 09/23/24 15:43 15:11 15:57 Wound Center Nurse 2 #4 Rt med le -Time 15:57 -Correct Patient Yes -Correct Side, Site, Position Yes -Correct Procedure Yes -Procedure Performed Yes -Type of Procedure Debridement -Clinical Debridement Subcutaneous -Tissue Removed Subcutaneous -Post Debridement (cm) - Length 3.2 -Post Debridement (cm) - Width 3.5 -Post Debridement (cm) - Depth 0.1 -Total Square (Post) (cm) 11.20 -Area of Debridement (cm) - Length 3.2 -Area of Debridement (cm) - Width 3.5 -Total Square (Area) (cm) 11.20 -Tunneling No -Undermining/Tunneling No -Circular Undermining No -Wound/Ulcer Outcome Not Healed -Ulcer Cleansing Rinsed/ Irrigated with Saline -Foul Odor after Cleansing No -Bioengineered Tissue No -Bleeding Controlled with Pressure -Treatment Response Procedure Tolerated Well -Debridement - Subq, 1st 20sq cm No 4. L thomason superior -Time : 15:11 15:58 -Correct Patient Yes Yes Yes -Correct Side, Site, Position Yes Yes Yes -Correct Procedure Yes Yes -Procedure Performed Yes Yes No -Type of Procedure Debridement Debridement -Clinical Debridement Subcutaneous Subcutaneous -Tissue Removed Subcutaneous Subcutaneous -Post Debridement (cm) - Length 1.0 1.0 -Post Debridement (cm) - Width 0.5 0.5 -Post Debridement (cm) - Depth 0.1 0.1 -Total Square (Post) (cm) 0.50 0.50 -Area of Debridement (cm) - Length 1.0 1.0 -Area of Debridement (cm) - Width 0.5 0.5 -Total Square (Area) (cm) 0.50 0.50 -Tunneling No No -Undermining/Tunneling No No -Circular Undermining No No -Wound/Ulcer Outcome Not Healed Not Healed Healed- Epithelialized -Ulcer Cleansing Rinsed/ Rinsed/ Irrigated with Irrigated with Saline Saline -Foul Odor after Cleansing No No -Bioengineered Tissue No No -Bleeding Controlled with Pressure Pressure -Treatment Response Procedure Procedure Tolerated Well Tolerated Well -Debridement - Subq, 1st 20sq cm Yes No #3 LLE INF -Time :43 15:11 15:58 -Correct Patient Yes Yes Yes -Correct Side, Site, Position Yes Yes Yes -Correct Procedure Yes Yes Yes -Procedure Performed Yes Yes Yes -Type of Procedure Debridement Debridement Debridement -Clinical Debridement Subcutaneous Subcutaneous Subcutaneous -Tissue Removed Subcutaneous Subcutaneous Subcutaneous -Post Debridement (cm) - Length 0.9 0.4 0.5 -Post Debridement (cm) - Width 1.0 0.4 0.3 -Post Debridement (cm) - Depth 0.1 0.1 0.1 -Total Square (Post) (cm) 0.90 0.16 0.15 -Area of Debridement (cm) - Length 0.9 0.4 0.5 -Area of Debridement (cm) - Width 1.0 0.4 0.3 -Total Square (Area) (cm) 0.90 0.16 0.15 -Tunneling No No No -Undermining/Tunneling No No No -Circular Undermining No No No -Wound/Ulcer Outcome Not Healed Not Healed Not Healed -Ulcer Cleansing Rinsed/ Rinsed/ Rinsed/ Irrigated with Irrigated with Irrigated with Saline Saline Saline -Foul Odor after Cleansing No No No -Bioengineered Tissue No No No -Bleeding Controlled with Pressure Pressure Pressure -Treatment Response Procedure Procedure Procedure Tolerated Well Tolerated Well Tolerated Well -Debridement - Subq, 1st 20sq cm No Yes Yes Pain Scale: 0-10 Numeric Is Patient Pain Free? Yes Yes Yes WC - Nurse 3 - General Ulcer D/C NN Start: 09/09/24 14:33 Freq: Status: Active Protocol: Activity Type Activity Date Activity User E-sign Co-sign Detail Recorded Client Recorded Date Recorded By Document 09/09/24 15:53 [id number] 09/09/24 15:53 Document 09/16/24 15:22 [facility] [id number] 09/16/24 15:24 [facility] Document 09/23/24 16:10 [id number] 09/23/24 16:13 09/09/24 09/16/24 09/23/24 15:53 15:22 16:10 Wound Care Center Nurse 3 #4 Rt med le -Primary Dressing Applied AMD Dressing 4x4,Silicone Border Foam 4x4 -AMD Dressing 4x4 1 -Silicone Border Foam 4x4 1 4. L thomason superior -Ulcer Cleansing Rinsed/ Irrigated with Saline -Foul Odor after Cleansing No -Primary Dressing Applied AMD Dressing AMD Dressing 4x4 4x4,Silicone Border Foam 4x4 -AMD Dressing 4x4 1 1 -Silicone Border Foam 4x4 1 #3 LLE INF -Ulcer Cleansing Rinsed/ Irrigated with Saline -Foul Odor after Cleansing No -Primary Dressing Applied AMD Dressing AMD Dressing Silicone Border 4x4 4x4,Silicone Foam 4x4 Border Foam 4x4 -Other Dressing AMD -AMD Dressing 4x4 1 1 -Silicone Border Foam 4x4 1 1 LLE -Tubular Bandage Single Layer -Size of Tubigrip Used Size C -Size C ($) 1 -Other reapplied pts pt agrees to own tubigrip apply at home Treatment Response Procedure Tolerated Well Pain Scale: 0-10 Numeric Is Patient Pain Free? Yes Yes Yes WC - Visit Discharge Discharge Condition Stable Stable Stable Ambulatory Status Ambulatory Ambulatory Transportation Private Auto Private Auto Private Auto Medication Reconcilliation completed & No No provided to patient/care provider Clinical Summary of Care Provided Yes Yes Additional Wound Wound debrided: Traumatic right pretibial wound Laterality: Right Type of Debridement: Excisional debridement Anesthesia Used: 5% Lidocaine Gel and Cetacaine Depth: Down to and including healthy tissue and in the subcutaneous layer Percentage of wound debrided: 100 Instrument Used: 3mm curette, Forceps and - (Scissors) Tissue Removed: Devitalized traumatic skin flap Severity: Fat Layer Exposed Bleeding Controlled with: Compression and gauze Patient tolerated procedure: Patient tolerated procedure well Charges/Coding Multi Select Codes Visit Charges Office Visit/Consults: 81147 OV L2 Est 10min Integumentary Integumentary CPT Codes: 79955 Violette subq tissue 20 sq cm/< Assessment/Plan Assessment/Plan (1) Non-pressure chronic ulcer of left lower leg with fat layer exposed: CODE(S): L97.922 - Non-pressure chronic ulcer of unspecified part of left lower leg with fat layer exposed (2) Traumatic open wound of right lower leg: CODE(S): S81.801A - Unspecified open wound, right lower leg, initial encounter QUALIFIERS: Encounter type: initial encounter Qualified Code(s): S81.801A - Unspecified open wound, right lower leg, initial encounter (3) Traumatic open wound of left lower leg: CODE(S): S81.802A - Unspecified open wound, left lower leg, initial encounter QUALIFIERS: Encounter type: subsequent encounter Qualified Code(s): S81.802D - Unspecified open wound, left lower leg, subsequent encounter (4) Lumbar scoliosis: CODE(S): M41.9 - Scoliosis, unspecified QUALIFIERS: Scoliosis type: other secondary scoliosis Qualified Code(s): M41.56 - Other secondary scoliosis, lumbar region (5) Low back pain: CODE(S): M54.50 - Low back pain, unspecified (6) DDD (degenerative disc disease), lumbosacral: CODE(S): M51.37 - Other intervertebral disc degeneration, lumbosacral region (7) Hypothyroidism (acquired): CODE(S): E03.9 - Hypothyroidism, unspecified (8) Cataracts, bilateral: CODE(S): H26.9 - Unspecified cataract (9) History of tonsillectomy: CODE(S): Z90.89 - Acquired absence of other organs (10) History of IBS: CODE(S): Z87.19 - Personal history of other diseases of the digestive system (11) Former smoker: CODE(S): Z87.891 - Personal history of nicotine dependence (12) History of lumbar spinal fusion: CODE(S): Z98.1 - Arthrodesis status (13) History of hysterectomy: CODE(S): Z90.710 - Acquired absence of both cervix and uterus (14) History of cervical discectomy: CODE(S): Z98.890 - Other specified postprocedural states (15) History of total hip replacement: CODE(S): Z96.649 - Presence of unspecified artificial hip joint (16) Status post spinal disc removal: CODE(S): Z98.890 - Other specified postprocedural states PLAN: Plan This is a 74-year-old female who presented with traumatic wounds in both lower extremities. Although the patient does not relate significant swelling in her lower extremities, measures to prevent such swelling have been thoroughly discussed. The patient has been encouraged to elevate her lower extremities as much as possible. She has been advised to refrain from prolonged, idle sitting. She is to continue wearing her Tubigrips on a daily basis. Activity has been encouraged. The patient has been encouraged to optimize her nutritional intake. The patient attests to the fact that her appetite is good, and she is consuming a well-balanced diet. One of the 2 wounds in the patient's left lower extremity appears to be healed, and the other has shown significant progress in recent weeks. Therefore, we are to continue the use of collagen hydrogel and Hunter antimicrobial foam dressing, which contains PHMB. This is to be applied topically on a daily basis. The patient has been instructed on appropriate means of application. The patient now has a new wound on the right pretibial surface, for which we are also going to implement the use of the Hunter antimicrobial foam dressing, to be applied daily. A noninvasive lower extremity arterial study was performed on June 13, 2024, the results of which revealed no evidence of significant arterial occlusive disease in the lower extremities. The patient is to return for reevaluation in 1 week. The use of allograft has been considered, but unlikely to be approved by the patient's insurance coverage in light of previous use of an allograft. Causes of delayed wound healing, such as malnutrition, anemia, and circulatory factors do not appear to be involved. Review of the patient's recent laboratory results suggest no significant abnormalities. The patient does not appear to be anemic, serum protein and albumin appear normal, renal function is normal, etc. The patient is to return in 1 week for reevaluation. Total time: 26 minutes
[2024-09-30 15:01] VITALS: BP 127/69; PULSE 71; RESP 18; TEMP 36.6; BMI 19.7
--- NOTE | 2024-10-01 07:46 | WC ---
PHOTO 09/30/24 TRINA
--- NOTE | 2024-10-01 07:48 | WC ---
PHOTO 09/30/24 RLE
--- NOTE | 2024-10-01 11:14 | HP.PCM_ITS ---
History of Present Illness Date of Service: 09/30/24 Chief Complaint: Left lower extremity traumatic wounds History of Wound: This is a 74-year-old female who presented with traumatic wounds to both lower extremities. The wounds were located on the pretibial surfaces bilaterally. The wound on the right pretibial surface occurred approximately 1 month prior to presentation, resulting when the patient bumped her leg against a trash bin. The wound had failed to heal appropriately. More recently, approximately 10 days prior to presentation, the patient dropped a box of spaghetti noodles onto the left pretibial surface, resulting in a wound which had failed to heal. The patient was seen by her primary care physician, Dr. Lundberg, 4 days prior to presentation, where a course of Keflex and doxycycline were initiated. The patient has completed her course of antibiotics. 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 The patient is mobile and active. She denies swelling in her legs. She sleeps on a flat surface at night. She denies a history of thrombophlebitis. The patient denies a history of congestive heart failure, myocardial infarction, diabetes mellitus, cerebrovascular accident, hypertension, renal disease, and pulmonary disease. She has a history of hypothyroidism. A limited venous duplex examination is noted to have been performed on October 26, 2022, examining only the right lower extremity, and revealing no evidence of thrombophlebitis. Valvular competence was not fully evaluated. [facility] Medical History (Updated 10/01/24 @ 11:[address] Natan Mcdaniel MD) Non-pressure chronic ulcer of right lower leg with fat layer exposed Traumatic open wound of right lower leg Traumatic open wound of left lower leg Non-pressure chronic ulcer of left lower leg with fat layer exposed Non-pressure chronic ulcer of right lower leg with fat layer exposed Traumatic open wound of right lower leg with delayed healing Traumatic open wound of left lower leg with delayed healing Wears glasses Anxiety Alcohol use History of steroid therapy Easy bruising Back pain Injury of back Migraine headache Syncope History of IBS Former smoker Leg cramps History of edema History of stress test Cataracts, bilateral Arthritis Anemia Vitamin D deficiency, unspecified Hypothyroidism Home Medications Medication Instructions Recorded Last Taken Type lidocaine 5 % topical patch 2 patch topical DAILY 04/10 08/24 1 Day Ago History ~09/21/17 meloxicam 15 mg tablet 15 mg PO QDAY 05/03/1709/22 History doxepin 10 mg capsule 10 mg PO QHS 12/16/19 Unknow n History folic acid 400 mcg tablet 0.4 mg PO DAILY@0800 0 Unknown History linaclotide 145 mcg capsule 145 mcg PO DAILY 12/16/19 Unknown History estradiol 0.1 mg/24 hr semiweekly 2 patch transdermal MOTH 03/15/20 Unknown History transdermal patch (Bessie) acetaminophen 500 mg tablet 1,000 mg PO BID 01/06/22 U nknown History vitamin Q12-aoszpsc B1 100 mg-1 1 ml IM .QMO 01/06/22 Unknown History mg/mL intramuscular solution levothyroxine 50 mcg tablet 50 mcg PO DAILY 03/18/24 U nknown History gabapentin 100 mg capsule 100 mg PO BID 05/07/24 Unkno wn History loratadine 10 mg tablet 10 mg PO .prn 05/07/24 Unkno wn History sulfamethoxazole 800 1 tab PO Q12H #14 tabs 05/27 Unknown Rx mg-trimethoprim 160 mg tablet (Bactrim DS) cephalexin 500 mg capsule 500 mg PO 4X/DAY 07/08/24 Un known History doxycycline hyclate 100 mg tablet 100 mg PO BID Unknown History sulfamethoxazole 800 1 tab PO Q12H #14 tabs 07/08 Unknown Rx mg-trimethoprim 160 mg tablet (Bactrim DS) sulfamethoxazole 800 1 tab PO Q12H wound infectio n #14 09/10/24 Unknown Rx mg-trimethoprim 160 mg tablet tabs (Bactrim DS) Allergy/AdvReac Type Severity Reaction Status Date / Time No Known Allergies Allergy Verified 05/07/24 11:09 Family History Mother Rheumatoid arthritis Father Pancreatic cancer Cancer Grandfather Myocardial infarction Grandmother Thyroid disorder Surgical History Status post spinal disc removal History of tonsillectomy History of lumbar spinal fusion History of total hip replacement History of hysterectomy History of cervical discectomy Social History household members: spouse Smoking Status: Never smoker alcohol intake: current alcohol intake frequency: a few times a week Alcohol type: wine substance use type: does not use what type of physical activity do you participate in: other details: physical therapy frequency: 1-2 times per week Vital Signs Vital Signs Vital Signs: 09/30/24 15:01 Temperature 97.9 F Temperature Source Temporal Pulse Rate 71 Respiratory Rate 18 Blood Pressure 127/69 H Blood Pressure Mean 88 Blood Pressure Source Monitor Blood Pressure Position Semi-Fowlers Blood Pressure Location Left Arm Oxygen Delivery Method Room Air Weight Weight: 101 lb Body Mass Index (BMI) 19.7 Physical Exam Const alert, oriented x3, no apparent distress, average body habitus and no limitations Constitutional Narrative: The patient's BMI is 19.7. She is of thin body habitus. General Appearance: cooperative, comfortable, well kempt and well developed Orientation / Consciousness: awake, oriented to person, oriented to place and oriented to time Exam Limitations: no limitations HEENT normocephalic, head/scalp atraumatic and hearing grossly normal bilaterally Head and Scalp: normal to inspection, normocephalic and atraumatic Face and Sinus: normal facial exam Nose: external nose normal External Ear: external ears normal Eyes EOMs intact bilaterally General Eye: normal appearance of both eyes Neck full ROM Resp normal respiratory effort, normal air movement, no retractions and no use of accessory muscles Effort and Inspection: able to speak in complete sentences Extremity no calf tenderness General Extremity: Negative for clubbing or cyanosis Skin Wound Narrative: The patient's lower extremities appear warm and well-perfused. Pedal pulses are easily palpable bilaterally. There is no significant swelling or edema in the patient's lower extremities. The wounds on the patient's left lower extremity are now completely healed and epithelialized. The traumatic wound on the patient's right pretibial surface persists. It is full-thickness in nature, extending through all layers of the dermis and into the subcutaneous tissues. W ound margins are well beveled. The base of the wound demonstrates a moderate amount of bioburden and nonviable tissue, with areas of pink, healthy granulation tissue. There is no sign of infection or cellulitis. Dimensions are documented elsewhere. The wound appears to be decreasing in size. Hair: normal Neuro oriented x3, CN's II-XII intact bilaterally, moves all extremities, no focal motor deficits and no sensory deficits noted Sensorium / Orientation: awake, alert, oriented to person, oriented to place and oriented to time Speech: speech normal Psych Appearance: grossly normal and appropriate Attitude: calm Activity / Motor Behavior: appropriate eye contact Speech: normal speech Mood & Affect: euthymic mood Thought Process: normal thought process Thought Content: normal thought content Attention / Concentration: attention grossly intact Debridement Note Debridement Note Wound debrided: Traumatic right pretibial wound Laterality: Right Type of Debridement: Excisional debridement Anesthesia Used: 5% Lidocaine Gel Depth: Down to and including healthy tissue and in the subcutaneous layer Percentage of wound debrided: 100 Instrument Used: 5mm curette Tissue Removed: Bioburden and nonviable tissue Severity: Fat Layer Exposed Amount of bleeding with debridement: Mild Bleeding Controlled with: Compression and gauze Patient tolerated procedure: Patient tolerated procedure well Post-Debridement Measurements and Additional Note: Post-Debridement Measurements/Treatment - Nurse 1 - General Ulcer Assessment Start: 09/09/24 14:33 Freq: Status: Active Protocol: JOEMetrasensAIMEE Activity Type Activity Date Activity User E-sign Co-sign Detail Recorded Client Recorded Date Recorded By Document 09/09/24 14:33 [facility] [id number] 09/09/24 14:36 [facility] Document 09/16/24 14:37 BM [id number] 09/16/24 14:46 [facility] Document 09/23/24 15:05 ML [id number] 09/23/24 15:09 ML Document 09/30/24 15:01 [id number] 09/30/24 15:15 KW 09/09/24 09/16/24 09/23/24 14:33 14:37 15:05 - Today's Visit Information Type of service Follow-up Visit Follow-up Visit (Physician/LABOR UTILIZATION SUPERINTENDENT (Physician/LABOR UTILIZATION SUPERINTENDENT ) ) Arrival Mode Ambulatory Ambulatory Ambulatory Transfer Assistance None None Patient Identification Verified (Name & Yes Yes Yes ) Patient Requires Transmission-Based No No No Precautions Height and Weight Body Mass Index (BMI) 19.7 19.7 19.7 BMI Classification Normal Normal Normal Vital Signs Temperature (97.8 F-99.1 F) 97.3 F L 97.7 F L 97.7 F L Temperature Source Temporal Temporal Temporal Pulse Rate (60-100) 76 65 71 Pulse Location Monitor Monitor Monitor Respiratory Rate (12-18) 16 16 14 Respiratory rate source Observation Observation Observation Oxygen Delivery Method Room Air Room Air Blood Pressure (90/60-120/80) 139/38 H 122/60 H 139/80 H Blood Pressure Mean 71 80 99 Source Monitor Monitor Monitor Position Sitting Sitting Supine Blood Pressure Location Left Arm Left Arm Left Arm History Since Last Visit- (Skip if this is Patient's initial visit) Have you changed medications since your No No No last visit? Any new allergies or adverse reactions No No No Had a fall/change in ADL's that may No No No increase risk of falls Signs or symptoms of abuse and/or No No No neglect since last visit Have you been in the hospital since your No No No last visit? Has dressing in place as prescribed Yes Yes No Has compression in place as prescribed No N/A N/A Has offloadiing in place as prescribed N/A No N/A Experienced any changes in pain level or No No No management Left Footwear Regular Shoe Regular Shoe Right Footwear Regular Shoe Regular Shoe Pain Scale: 0-10 Numeric Is Patient Pain Free? Yes Yes Yes joe ENCARNACION -Description -Alleviating Factors/Interventions 09/30/24 15:01 WC - Today's Visit Information Type of service Follow-up Visit (Physician/LABOR UTILIZATION SUPERINTENDENT ) Arrival Mode Ambulatory Transfer Assistance Patient Identification Verified (Name & Yes ) Patient Requires Transmission-Based Precautions Height and Weight Body Mass Index (BMI) 19.7 BMI Classification Normal Vital Signs Temperature (97.8 F-99.1 F) 97.9 F Temperature Source Temporal Pulse Rate (60-100) 71 Pulse Location Monitor Respiratory Rate (12-18) 18 Respiratory rate source Observation Oxygen Delivery Method Room Air Blood Pressure (90/60-120/80) 127/69 H Blood Pressure Mean 88 Source Monitor Position Semi-Fowlers Blood Pressure Location Left Arm History Since Last Visit- (Skip if this is Patient's initial visit) Have you changed medications since your No last visit? Any new allergies or adverse reactions No Had a fall/change in ADL's that may No increase risk of falls Signs or symptoms of abuse and/or No neglect since last visit Have you been in the hospital since your No last visit? Has dressing in place as prescribed Yes Has compression in place as prescribed N/A Has offloadiing in place as prescribed N/A Experienced any changes in pain level or No management Left Footwear Regular Shoe Right Footwear Regular Shoe Pain Scale: 0-10 Numeric Is Patient Pain Free? No bilat LE -Description Burning -Alleviating Factors/Interventions Medication, Medicate when due,Inactivity/ Resting WC - Nurse 1 - General Ulcer Measurement Start: 09/09/24 14:33 Freq: Status: Active Protocol: Activity Type Activity Date Activity User E-sign Co-sign Detail Recorded Client Recorded Date Recorded By Document 09/09/24 14:33 BMF [id number] 09/09/24 14:36 BMF Document 09/16/24 14:37 BMF [id number] 09/16/24 14:46 BMF Document 09/23/24 15:05 ML [id number] 09/23/24 15:09 ML Document 09/30/24 15:01 KW [id number] 09/30/24 15:15 KW 09/09/24 09/16/24 09/23/24 14:33 14:37 15:05 Wound Center Nurse 1 4. L thomason superior -Combined with other wound No No -Current Size (cm) - Length 1 0.9 0.1 -Current Size (cm) - Width 0.5 0.3 0.1 -Current Size (cm) - Depth 0.1 0.1 0.1 -Total Square Cm 0.5 0.27 0.01 -Date of Last Picture (Recall this 09/16/24 field) -Photo Taken Yes -Epithelialization Small 1-33% Small 1-33% -Tunneling No No -Undermining/Tunneling No No -Circular Undermining No No -Exudate Amt Medium Medium None Present -Exudate Type Serosanguineous Serosanguineous -Wound Margin Distinct, Distinct, Outline Outline Attached Attached -Granulation Amt Large (67-100%) Large (67-100%) Large (67-100%) -Granulation Quality [place] Red -Slough/Fibrin Yes Yes No -Necrosis Amt Small (1-33%) Small (1-33%) None Present (0 %) -Necrotic Tissue Type Adherent Slough Adherent Slough -Texture (Joyce-wound Skin Appearance) Assessed, Assessed, Assessed Scarring Scarring -Moisture (Joyce-wound Skin Appearance) Assessed,Dry/ Assessed,Dry/ Assessed Scaly Scaly -Color (Joyce-wound Skin Appearance) Assessed Assessed Assessed -Temperature (Joyce-wound Skin No Abnormality No Abnormality No Abnormality Appearance) (Pt Warm) (Pt Warm) (Pt Warm) -Tenderness on Palpation (Joyce-wound No No No Skin Appearance) -Ulcer Cleansing Rinsed/ Soap and Water Rinsed/ Irrigated with Irrigated with Saline Saline -Foul Odor after Cleansing No No -Anesthetic Used 5% Lidocaine 5% Lidocaine 5% Lidocaine Gel Gel Gel -Wound Comment(s) #3 LLE INF -Combined with other wound No No -Current Size (cm) - Length 0.9 0.4 0.1 -Current Size (cm) - Width 1 0.6 0.1 -Current Size (cm) - Depth 0.1 0.1 0.1 -Total Square Cm 0.9 0.24 0.01 -Date of Last Picture (Recall this 09/16/24 field) -Photo Taken Yes -Epithelialization Small 1-33% Small 1-33% -Tunneling No No -Undermining/Tunneling No No -Circular Undermining No No -Exudate Amt Medium Medium None Present -Exudate Type Serosanguineous Serosanguineous -Wound Margin Distinct, Distinct, Outline Outline Attached Attached -Granulation Amt Large (67-100%) Small (1-33%) None Present (0 %) -Granulation Quality [place] Wheatcroft -Slough/Fibrin Yes Yes No -Necrosis Amt Small (1-33%) Medium (34-66%) None Present (0 %) -Necrotic Tissue Type Adherent Slough Adherent Slough Adherent Slough -Texture (Joyce-wound Skin Appearance) Assessed, Assessed, Assessed Scarring Scarring -Moisture (Joyce-wound Skin Appearance) Assessed,Dry/ Assessed,Dry/ Assessed Scaly Scaly -Color (Joyce-wound Skin Appearance) Assessed Assessed Assessed -Temperature (Joyce-wound Skin No Abnormality No Abnormality No Abnormality Appearance) (Pt Warm) (Pt Warm) (Pt Warm) -Tenderness on Palpation (Joyce-wound No No Yes Skin Appearance) -Ulcer Cleansing Rinsed/ Soap and Water Rinsed/ Irrigated with Irrigated with Saline Saline -Foul Odor after Cleansing No No No -Anesthetic Used 5% Lidocaine 5% Lidocaine 5% Lidocaine Gel Gel Gel -Wound Comment(s) #4 Rt med le -Current Size (cm) - Length 3 -Current Size (cm) - Width 3.5 -Current Size (cm) - Depth 0.1 -Total Square Cm 10.5 -Date of Last Picture (Recall this field) -Exudate Amt Medium -Exudate Type Serosanguineous -Wound Margin Distinct, Outline Attached -Granulation Amt None Present (0 %) -Granulation Quality -Slough/Fibrin Yes -Necrotic Tissue Type Adherent Slough -Texture (Joyce-wound Skin Appearance) Assessed -Moisture (Joyce-wound Skin Appearance) Assessed -Color (Joyce-wound Skin Appearance) Assessed -Temperature (Joyce-wound Skin No Abnormality Appearance) (Pt Warm) -Tenderness on Palpation (Joyce-wound Yes Skin Appearance) -Ulcer Cleansing Rinsed/ Irrigated with Saline -Foul Odor after Cleansing No -Anesthetic Used 5% Lidocaine Gel 09/30/24 15:01 Wound Center Nurse 1 4. L thomason superior -Combined with other wound -Current Size (cm) - Length 0.1 -Current Size (cm) - Width 0.1 -Current Size (cm) - Depth 0 -Total Square Cm 0.01 -Date of Last Picture (Recall this 09/30/24 field) -Photo Taken -Epithelialization -Tunneling -Undermining/Tunneling -Circular Undermining -Exudate Amt -Exudate Type -Wound Margin -Granulation Amt -Granulation Quality -Slough/Fibrin -Necrosis Amt -Necrotic Tissue Type -Texture (Joyce-wound Skin Appearance) Assessed -Moisture (Joyce-wound Skin Appearance) Assessed -Color (Joyce-wound Skin Appearance) Assessed -Temperature (Joyce-wound Skin Appearance) -Tenderness on Palpation (Joyce-wound Skin Appearance) -Ulcer Cleansing -Foul Odor after Cleansing -Anesthetic Used -Wound Comment(s) possibly healed . #3 LLE INF -Combined with other wound -Current Size (cm) - Length 0.1 -Current Size (cm) - Width 0.1 -Current Size (cm) - Depth 0 -Total Square Cm 0.01 -Date of Last Picture (Recall this 09/30/24 field) -Photo Taken -Epithelialization -Tunneling -Undermining/Tunneling -Circular Undermining -Exudate Amt -Exudate Type -Wound Margin -Granulation Amt -Granulation Quality -Slough/Fibrin -Necrosis Amt -Necrotic Tissue Type -Texture (Joyce-wound Skin Appearance) Assessed -Moisture (Joyce-wound Skin Appearance) Assessed -Color (Joyce-wound Skin Appearance) Assessed -Temperature (Joyce-wound Skin No Abnormality Appearance) (Pt Warm) -Tenderness on Palpation (Joyce-wound No Skin Appearance) -Ulcer Cleansing Soap and Water -Foul Odor after Cleansing No -Anesthetic Used -Wound Comment(s) poss. healed #4 Rt med le -Current Size (cm) - Length 3 -Current Size (cm) - Width 3 -Current Size (cm) - Depth 0.1 -Total Square Cm 9 -Date of Last Picture (Recall this 09/30/24 field) -Exudate Amt Medium -Exudate Type Serosanguineous -Wound Margin Distinct, Outline Attached -Granulation Amt Large (67-100%) -Granulation Quality Red -Slough/Fibrin -Necrotic Tissue Type -Texture (Joyce-wound Skin Appearance) Assessed -Moisture (Joyce-wound Skin Appearance) Assessed -Color (Joyce-wound Skin Appearance) Assessed, Erythema, Hemosiderin Staining -Temperature (Joyce-wound Skin No Abnormality Appearance) (Pt Warm) -Tenderness on Palpation (Joyce-wound No Skin Appearance) -Ulcer Cleansing Soap and Water -Foul Odor after Cleansing No -Anesthetic Used 5% Lidocaine Gel WC - Nurse 2 - General Ulcer CM Notes Start: 09/09/24 14:33 Freq: Status: Active Protocol: Activity Type Activity Date Activity User E-sign Co-sign Detail Recorded Client Recorded Date Recorded By Document 09/09/24 15:43 DS [id number] 09/09/24 15:48 DS Document 09/16/24 15:11 DS [id number] 09/16/24 15:17 DS Document 09/23/24 15:57 DS [id number] 09/23/24 16:02 DS Document 09/30/24 15:36 DS [id number] 09/30/24 15:41 DS 09/09/24 09/16/24 09/23/24 15:43 15:11 15:57 Wound Center Nurse 2 4. L thomason superior -Time 15:43 15:11 15:58 -Correct Patient Yes Yes Yes -Correct Side, Site, Position Yes Yes Yes -Correct Procedure Yes Yes -Procedure Performed Yes Yes No -Type of Procedure Debridement Debridement -Clinical Debridement Subcutaneous Subcutaneous -Tissue Removed Subcutaneous Subcutaneous -Post Debridement (cm) - Length 1.0 1.0 -Post Debridement (cm) - Width 0.5 0.5 -Post Debridement (cm) - Depth 0.1 0.1 -Total Square (Post) (cm) 0.50 0.50 -Area of Debridement (cm) - Length 1.0 1.0 -Area of Debridement (cm) - Width 0.5 0.5 -Total Square (Area) (cm) 0.50 0.50 -Tunneling No No -Undermining/Tunneling No No -Circular Undermining No No -Wound/Ulcer Outcome Not Healed Not Healed Healed- Epithelialized -Ulcer Cleansing Rinsed/ Rinsed/ Irrigated with Irrigated with Saline Saline -Foul Odor after Cleansing No No -Bioengineered Tissue No No -Bleeding Controlled with Pressure Pressure -Treatment Response Procedure Procedure Tolerated Well Tolerated Well -Debridement - Subq, 1st 20sq cm Yes No #3 LLE INF -Time 15:43 15:11 15:58 -Correct Patient Yes Yes Yes -Correct Side, Site, Position Yes Yes Yes -Correct Procedure Yes Yes Yes -Procedure Performed Yes Yes Yes -Type of Procedure Debridement Debridement Debridement -Clinical Debridement Subcutaneous Subcutaneous Subcutaneous -Tissue Removed Subcutaneous Subcutaneous Subcutaneous -Post Debridement (cm) - Length 0.9 0.4 0.5 -Post Debridement (cm) - Width 1.0 0.4 0.3 -Post Debridement (cm) - Depth 0.1 0.1 0.1 -Total Square (Post) (cm) 0.90 0.16 0.15 -Area of Debridement (cm) - Length 0.9 0.4 0.5 -Area of Debridement (cm) - Width 1.0 0.4 0.3 -Total Square (Area) (cm) 0.90 0.16 0.15 -Tunneling No No No -Undermining/Tunneling No No No -Circular Undermining No No No -Wound/Ulcer Outcome Not Healed Not Healed Not Healed -Ulcer Cleansing Rinsed/ Rinsed/ Rinsed/ Irrigated with Irrigated with Irrigated with Saline Saline Saline -Foul Odor after Cleansing No No No -Bioengineered Tissue No No No -Bleeding Controlled with Pressure Pressure Pressure -Treatment Response Procedure Procedure Procedure Tolerated Well Tolerated Well Tolerated Well -Debridement - Subq, 1st 20sq cm No Yes Yes #4 Rt med le -Time 15:57 -Correct Patient Yes -Correct Side, Site, Position Yes -Correct Procedure Yes -Procedure Performed Yes -Type of Procedure Debridement -Clinical Debridement Subcutaneous -Tissue Removed Subcutaneous -Post Debridement (cm) - Length 3.2 -Post Debridement (cm) - Width 3.5 -Post Debridement (cm) - Depth 0.1 -Total Square (Post) (cm) 11.20 -Area of Debridement (cm) - Length 3.2 -Area of Debridement (cm) - Width 3.5 -Total Square (Area) (cm) 11.20 -Tunneling No -Undermining/Tunneling No -Circular Undermining No -Wound/Ulcer Outcome Not Healed -Ulcer Cleansing Rinsed/ Irrigated with Saline -Foul Odor after Cleansing No -Bioengineered Tissue No -Bleeding Controlled with Pressure -Treatment Response Procedure Tolerated Well -Offloading -Debridement - Subq, 1st 20sq cm No Pain Scale: 0-10 Numeric Is Patient Pain Free? Yes Yes Yes 09/30/24 15:36 Wound Center Nurse 2 Julio thomason superior -Time 15:40 -Correct Patient Yes -Correct Side, Site, Position Yes -Correct Procedure -Procedure Performed No -Type of Procedure -Clinical Debridement -Tissue Removed -Post Debridement (cm) - Length -Post Debridement (cm) - Width -Post Debridement (cm) - Depth -Total Square (Post) (cm) -Area of Debridement (cm) - Length -Area of Debridement (cm) - Width -Total Square (Area) (cm) -Tunneling -Undermining/Tunneling -Circular Undermining -Wound/Ulcer Outcome Healed- Epithelialized -Ulcer Cleansing -Foul Odor after Cleansing -Bioengineered Tissue -Bleeding Controlled with -Treatment Response -Debridement - Subq, 1st 20sq cm #3 LLE INF -Time 15:39 -Correct Patient Yes -Correct Side, Site, Position Yes -Correct Procedure -Procedure Performed No -Type of Procedure -Clinical Debridement -Tissue Removed -Post Debridement (cm) - Length -Post Debridement (cm) - Width -Post Debridement (cm) - Depth -Total Square (Post) (cm) -Area of Debridement (cm) - Length -Area of Debridement (cm) - Width -Total Square (Area) (cm) -Tunneling -Undermining/Tunneling -Circular Undermining -Wound/Ulcer Outcome Healed- Epithelialized -Ulcer Cleansing -Foul Odor after Cleansing -Bioengineered Tissue -Bleeding Controlled with -Treatment Response -Debridement - Subq, 1st 20sq cm #4 Rt med le -Time 15:39 -Correct Patient Yes -Correct Side, Site, Position Yes -Correct Procedure Yes -Procedure Performed Yes -Type of Procedure Debridement -Clinical Debridement Subcutaneous -Tissue Removed Subcutaneous -Post Debridement (cm) - Length 3.0 -Post Debridement (cm) - Width 2.5 -Post Debridement (cm) - Depth 0.1 -Total Square (Post) (cm) 7.50 -Area of Debridement (cm) - Length 3.0 -Area of Debridement (cm) - Width 2.5 -Total Square (Area) (cm) 7.50 -Tunneling No -Undermining/Tunneling No -Circular Undermining No -Wound/Ulcer Outcome Not Healed -Ulcer Cleansing Rinsed/ Irrigated with Saline -Foul Odor after Cleansing No -Bioengineered Tissue No -Bleeding Controlled with Pressure -Treatment Response Procedure Tolerated Well -Offloading No -Debridement - Subq, 1st 20sq cm Yes Pain Scale: 0-10 Numeric Is Patient Pain Free? Yes - Nurse 3 - General Ulcer D/C NN Start: 09/09/24 14:33 Freq: Status: Active Protocol: Activity Type Activity Date Activity User E-sign Co-sign Detail Recorded Client Recorded Date Recorded By Document 09/09/24 15:53 [id number] 09/09/24 15:53 Document 09/16/24 15:22 [facility] [id number] 09/16/24 15:24 [facility] Document 09/23/24 16:10 [id number] 09/23/24 16:13 Document 09/30/24 15:56 [facility] [id number] 09/30/24 15:56 [facility] 09/09/24 09/16/24 09/23/24 15:53 15:22 16:10 Wound Care Center Nurse 3 4. L thomason superior -Ulcer Cleansing Rinsed/ Irrigated with Saline -Foul Odor after Cleansing No -Primary Dressing Applied AMD Dressing AMD Dressing 4x4 4x4,Silicone Border Foam 4x4 -AMD Dressing 4x4 1 1 -Silicone Border Foam 4x4 1 #3 LLE INF -Ulcer Cleansing Rinsed/ Irrigated with Saline -Foul Odor after Cleansing No -Primary Dressing Applied AMD Dressing AMD Dressing Silicone Border 4x4 4x4,Silicone Foam 4x4 Border Foam 4x4 -Other Dressing AMD -AMD Dressing 4x4 1 1 -Silicone Border Foam 4x4 1 1 #4 Rt med le -Ulcer Cleansing -Foul Odor after Cleansing -Primary Dressing Applied AMD Dressing 4x4,Silicone Border Foam 4x4 -Other Dressing -AMD Dressing 4x4 1 -Silicone Border Foam 4x4 1 LLE -Tubular Bandage Single Layer -Size of Tubigrip Used Size C -Size C ($) 1 -Other reapplied pts pt agrees to own tubigrip apply at home Treatment Response Procedure Tolerated Well Pain Scale: 0-10 Numeric Is Patient Pain Free? Yes Yes Yes WC - Visit Discharge Discharge Condition Stable Stable Stable Ambulatory Status Ambulatory Ambulatory Transportation Private Auto Private Auto Private Auto Medication Reconcilliation completed & No No provided to patient/care provider Clinical Summary of Care Provided Yes Yes 09/30/24 15:56 Wound Care Center Nurse 3 4. L thomason superior -Ulcer Cleansing -Foul Odor after Cleansing -Primary Dressing Applied -AMD Dressing 4x4 -Silicone Border Foam 4x4 #3 LLE INF -Ulcer Cleansing -Foul Odor after Cleansing -Primary Dressing Applied -Other Dressing -AMD Dressing 4x4 -Silicone Border Foam 4x4 #4 Rt med le -Ulcer Cleansing Rinsed/ Irrigated with Saline -Foul Odor after Cleansing No -Primary Dressing Applied AMD Dressing 4x4,Silicone Border Foam 4x4 -Other Dressing hydrogel -AMD Dressing 4x4 1 -Silicone Border Foam 4x4 1 LLE -Tubular Bandage Single Layer -Size of Tubigrip Used Size C -Size C ($) 1 -Other Treatment Response Procedure Tolerated Well Pain Scale: 0-10 Numeric Is Patient Pain Free? Yes WC - Visit Discharge Discharge Condition Stable Ambulatory Status Ambulatory Transportation Private Auto Medication Reconcilliation completed & provided to patient/care provider Clinical Summary of Care Provided Additional Wound Anesthesia Used: Cetacaine Tissue Removed: Devitalized traumatic skin flap Charges/Coding Procedures Integumentary 111xxx-113xx: 92175 Violette subq tissue 20 sq cm/< Assessment/Plan Assessment/Plan (1) Non-pressure chronic ulcer of right lower leg with fat layer exposed: CODE(S): L97.912 - Non-pressure chronic ulcer of unspecified part of right lower leg with fat layer exposed (2) Non-pressure chronic ulcer of left lower leg with fat layer exposed: CODE(S): L97.922 - Non-pressure chronic ulcer of unspecified part of left lower leg with fat layer exposed (3) Traumatic open wound of right lower leg: CODE(S): S81.801A - Unspecified open wound, right lower leg, initial encounter QUALIFIERS: Encounter type: subsequent encounter Qualified Code(s): S81.801D - Unspecified open wound, right lower leg, subsequent encounter (4) Traumatic open wound of left lower leg: CODE(S): S81.802A - Unspecified open wound, left lower leg, initial encounter QUALIFIERS: Encounter type: subsequent encounter Qualified Code(s): S81.802D - Unspecified open wound, left lower leg, subsequent encounter (5) Lumbar scoliosis: CODE(S): M41.9 - Scoliosis, unspecified QUALIFIERS: Scoliosis type: other secondary scoliosis Qualified Code(s): M41.56 - Other secondary scoliosis, lumbar region (6) Low back pain: CODE(S): M54.50 - Low back pain, unspecified (7) DDD (degenerative disc disease), lumbosacral: CODE(S): M51.37 - Other intervertebral disc degeneration, lumbosacral region (8) Hypothyroidism (acquired): CODE(S): E03.9 - Hypothyroidism, unspecified (9) Cataracts, bilateral: CODE(S): H26.9 - Unspecified cataract (10) History of tonsillectomy: CODE(S): Z90.89 - Acquired absence of other organs (11) History of IBS: CODE(S): Z87.19 - Personal history of other diseases of the digestive system (12) Former smoker: CODE(S): Z87.891 - Personal history of nicotine dependence (13) History of lumbar spinal fusion: CODE(S): Z98.1 - Arthrodesis status (14) History of hysterectomy: CODE(S): Z90.710 - Acquired absence of both cervix and uterus (15) History of cervical discectomy: CODE(S): Z98.890 - Other specified postprocedural states (16) History of total hip replacement: CODE(S): Z96.649 - Presence of unspecified artificial hip joint (17) Status post spinal disc removal: CODE(S): Z98.890 - Other specified postprocedural states PLAN: Plan This is a 74-year-old female who presented with traumatic wounds in both lower extremities. Although the patient does not relate significant swelling in her lower extremities, measures to prevent such swelling have been thoroughly discussed. The patient has been encouraged to elevate her lower extremities as much as possible. She has been advised to refrain from prolonged, idle sitting. She is to continue wearing her Tubigrips bilaterally on a daily basis. Activity has been encouraged. The patient has been encouraged to optimize her nutritional intake. The patient attests to the fact that her appetite is good, and she is consuming a well-balanced diet. The traumatic wounds in the left lower extremity are now completely healed and epithelialized. A traumatic wound remains on the right pretibial surface. We are to continue the use of collagen hydrogel and Hunter antimicrobial foam dressing, which contains PHMB. This is to be applied topically on a daily basis. The patient has been instructed on appropriate means of application. A noninvasive lower extremity arterial study was performed on June 13, 2024, the results of which revealed no evidence of significant arterial occlusive disease in the lower extremities. Review of the patient's recent laboratory results suggest no significant abnormalities. The patient does not appear to be anemic, serum protein and albumin appear normal, renal function is normal, etc. The patient is to return in 1 week for reevaluation. Total time: 24 minutes
== END 2024-10-06 23:59 | disposition home or self-care (01) ==
LOC: WC 14:45
PROVIDERS: PCP Family Medicine Geriatric Medicine; Referring Provider Family Medicine Geriatric Medicine; Visit Provider Surgery
DX: L97.222 Non-pressure chronic ulcer of left calf with fat layer exposed (principal); L97.912 Non-pressure chronic ulcer of unspecified part of right lower leg with fat layer exposed; Z98.1 Arthrodesis status; Z87.891 Personal history of nicotine dependence; E03.9 Hypothyroidism, unspecified; Z90.710 Acquired absence of both cervix and uterus; H26.9 Unspecified cataract; S81.802D Unspecified open wound, left lower leg, subsequent encounter; M41.56 Other secondary scoliosis, lumbar region; Z87.19 Personal history of other diseases of the digestive system; Z90.89 Acquired absence of other organs; Z96.649 Presence of unspecified artificial hip joint; M51.370 Other intervertebral disc degeneration, lumbosacral region with discogenic back pain only
CPT/HCPCS: 11042

== ENCOUNTER 2024-11-04 14:30 | Outpatient (RCR) | payer MEDICARE, OTHER, SELFPAY ==
[2024-10-07 14:42] VITALS: BP 133/76; PULSE 61; RESP 16; TEMP 36.8
--- NOTE | 2024-10-08 08:46 | WC ---
PHOTO 10/07/24 RIGHT SAMANTHA ENCARNACION
--- NOTE | 2024-10-09 13:25 | HP.PCM_ITS ---
History of Present Illness Date of Service: 10/07/24 Chief Complaint: Right lower extremity traumatic wound History of Wound: This is a 74-year-old female who has presented repeatedly with traumatic wounds to both lower extremities. A wound on the right pretibial surface persists, though all other lower extremity wounds have healed. The patient is mobile and active. She denies swelling in her legs. She sleeps on a flat surface at night. She denies a history of thrombophlebitis. The patient denies a history of congestive heart failure, myocardial infarction, diabetes mellitus, cerebrovascular accident, hypertension, renal disease, and pulmonary disease. She has a history of hypothyroidism. A limited venous duplex examination was performed on October 26, 2022, examining only the right lower extremity, and revealing no evidence of thrombophlebitis. Valvular competence was not fully evaluated. [facility] Medical History Non-pressure chronic ulcer of right lower leg with fat layer exposed Traumatic open wound of right lower leg Traumatic open wound of left lower leg Non-pressure chronic ulcer of left lower leg with fat layer exposed Non-pressure chronic ulcer of right lower leg with fat layer exposed Traumatic open wound of right lower leg with delayed healing Traumatic open wound of left lower leg with delayed healing Wears glasses Anxiety Alcohol use History of steroid therapy Easy bruising Back pain Injury of back Migraine headache Syncope History of IBS Former smoker Leg cramps History of edema History of stress test Cataracts, bilateral Arthritis Anemia Vitamin D deficiency, unspecified Hypothyroidism Home Medications ?Medication ?Instructions ?Recorded ?Last Taken ?Type lidocaine 5 % topical patch 2 patch topical DAILY 04/10 08/24 1 Day Ago History ~09/21/17 meloxicam 15 mg tablet 15 mg PO QDAY 05/03/1709/22 History doxepin 10 mg capsule 10 mg PO QHS 12/16/19 Unknow n History folic acid 400 mcg tablet 0.4 mg PO DAILY@0800 0 Unknown History linaclotide 145 mcg capsule 145 mcg PO DAILY 12/16/19 Unknown History estradiol 0.1 mg/24 hr semiweekly 2 patch transdermal MOTH 03/15/20 Unknown History transdermal patch (Bessie) acetaminophen 500 mg tablet 1,000 mg PO BID 01/06/22 U nknown History vitamin [id number] B1 100 mg-1 1 ml IM .QMO 01/06/22 Unknown History mg/mL intramuscular solution levothyroxine 50 mcg tablet 50 mcg PO DAILY 03/18/24 U nknown History gabapentin 100 mg capsule 100 mg PO BID 05/07/24 Unkno wn History loratadine 10 mg tablet 10 mg PO .prn 05/07/24 Unkno wn History sulfamethoxazole 800 1 tab PO Q12H #14 tabs 05/27 Unknown Rx mg-trimethoprim 160 mg tablet (Bactrim DS) cephalexin 500 mg capsule 500 mg PO 4X/DAY 07/08/24 Un known History doxycycline hyclate 100 mg tablet 100 mg PO BID Unknown History sulfamethoxazole 800 1 tab PO Q12H #14 tabs 07/08 Unknown Rx mg-trimethoprim 160 mg tablet (Bactrim DS) sulfamethoxazole 800 1 tab PO Q12H wound infectio n #14 09/10/24 Unknown Rx mg-trimethoprim 160 mg tablet tabs (Bactrim DS) Allergy/AdvReac Type Severity Reaction Status Date / Time No Known Allergies Allergy Verified 05/07/24 11:09 Family History Mother Rheumatoid arthritis Father Pancreatic cancer Cancer Grandfather Myocardial infarction Grandmother Thyroid disorder Surgical History Status post spinal disc removal History of tonsillectomy History of lumbar spinal fusion History of total hip replacement History of hysterectomy History of cervical discectomy Social History household members: spouse Smoking Status: Never smoker alcohol intake: current alcohol intake frequency: a few times a week Alcohol type: wine substance use type: does not use what type of physical activity do you participate in: other details: physical therapy frequency: 1-2 times per week Physical Exam Const alert, oriented x3, no apparent distress, average body habitus and no limitations Constitutional Narrative: The patient's BMI is 19.7. She is of thin body habitus. General Appearance: cooperative, comfortable, well kempt and well developed Orientation / Consciousness: awake, oriented to person, oriented to place and oriented to time Exam Limitations: no limitations HEENT normocephalic, head/scalp atraumatic and hearing grossly normal bilaterally Head and Scalp: normal to inspection, normocephalic and atraumatic Face and Sinus: normal facial exam Nose: external nose normal External Ear: external ears normal Eyes EOMs intact bilaterally General Eye: normal appearance of both eyes Neck full ROM Resp normal respiratory effort, normal air movement, no retractions and no use of accessory muscles Effort and Inspection: able to speak in complete sentences Extremity no calf tenderness General Extremity: Negative for clubbing or cyanosis Skin Wound Narrative: The patient's lower extremities appear warm and well-perfused. Pedal pulses are easily palpable bilaterally. There is no significant swelling or edema in the patient's lower extremities. The wounds on the patient's left lower extremity are completely healed and epithelialized. The traumatic wound on the patient's right pretibial surface persists. It is full-thickness in nature, extending through all layers of the dermis and into the subcutaneous tissues. Wound margins are well beveled. The base of the wound demonstrates a moderate amount of bioburden and nonviable tissue, with areas of pink, healthy granulation tissue. There is no sign of infection or cellulitis. Dimensions are documented elsewhere. The wound appears to be decreasing in size. Hair: normal Neuro oriented x3, CN's II-XII intact bilaterally, moves all extremities, no focal motor deficits and no sensory deficits noted Sensorium / Orientation: awake, alert, oriented to person, oriented to place and oriented to time Speech: speech normal Psych Appearance: grossly normal and appropriate Attitude: calm Activity / Motor Behavior: appropriate eye contact Speech: normal speech Mood & Affect: euthymic mood Thought Process: normal thought process Thought Content: normal thought content Attention / Concentration: attention grossly intact Debridement Note Debridement Note Wound debrided: Traumatic right pretibial wound Laterality: Right Type of Debridement: Excisional debridement Anesthesia Used: 5% Lidocaine Gel and Cetacaine Depth: Down to and including healthy tissue and in the subcutaneous layer Percentage of wound debrided: 100 Instrument Used: 5mm curette Tissue Removed: Bioburden and nonviable tissue Severity: Fat Layer Exposed Amount of bleeding with debridement: Mild Bleeding Controlled with: Compression and gauze Patient tolerated procedure: Patient tolerated procedure well Post-Debridement Measurements and Additional Note: Post-Debridement Measurements/Treatment JOE - Nurse 1 - General Ulcer Assessment Start: 10/07/24 14:42 Freq: Status: Active Protocol: RICARDOT Activity Type Activity Date Activity User E-sign Co-sign Detail Recorded Client Recorded Date Recorded By Document 10/07/24 14:42 EMEKA [id number] 10/07/24 14:50 10/07/24 14:42 - Today's Visit Information Type of service Follow-up Visit (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 Any new allergies or adverse reactions No Had a fall/change in ADL's that may No increase risk of falls Signs or symptoms of abuse and/or No neglect since last visit Have you been in the hospital since your No last visit? Has dressing in place as prescribed Yes Has compression in place as prescribed N/A Has offloadiing in place as prescribed N/A Experienced any changes in pain level or No management Left Footwear Regular Shoe Right Footwear Regular Shoe Pain Scale: 0-10 Numeric Is Patient Pain Free? Yes - Nurse 1 - General Ulcer Measurement Start: 10/07/24 14:42 Freq: Status: Active Protocol: Activity Type Activity Date Activity User E-sign Co-sign Detail Recorded Client Recorded Date Recorded By Document 10/07/24 14:42 [id number] 10/07/24 14:50 10/07/24 14:42 Wound Center Nurse 1 #4 Rt med le -Current Size (cm) - Length 2.5 -Current Size (cm) - Width 2 -Current Size (cm) - Depth 0.1 -Total Square Cm 5.0 -Date of Last Picture (Recall this 10/07/24 field) -Exudate Amt Medium -Exudate Type Serosanguineous -Wound Margin Distinct, Outline Attached -Granulation Amt Large (67-100%) -Granulation Quality [place],Red -Necrosis Amt Small (1-33%) -Necrotic Tissue Type Adherent Slough -Texture (Joyce-wound Skin Appearance) Assessed -Moisture (Joyce-wound Skin Appearance) Assessed -Color (Joyce-wound Skin Appearance) Assessed -Temperature (Joyce-wound Skin No Abnormality Appearance) (Pt Warm) -Tenderness on Palpation (Joyce-wound No Skin Appearance) -Ulcer Cleansing Soap and Water -Foul Odor after Cleansing No -Anesthetic Used 5% Lidocaine Gel - Nurse 2 - General Ulcer CM Notes Start: 10/07/24 14:42 Freq: Status: Active Protocol: Activity Type Activity Date Activity User E-sign Co-sign Detail Recorded Client Recorded Date Recorded By Document 10/07/24 15:01 [id number] 10/07/24 15:05 DS 10/07/24 15:01 Wound Center Nurse 2 -Time 15:01 -Correct Patient Yes -Correct Side, Site, Position Yes -Correct Procedure Yes -Procedure Performed Yes -Type of Procedure Debridement -Clinical Debridement Subcutaneous -Tissue Removed Subcutaneous -Post Debridement (cm) - Length 2.6 -Post Debridement (cm) - Width 2.6 -Post Debridement (cm) - Depth 0.1 -Total Square (Post) (cm) 6.76 -Area of Debridement (cm) - Length 2.6 -Area of Debridement (cm) - Width 2.6 -Total Square (Area) (cm) 6.76 -Tunneling No -Undermining/Tunneling No -Circular Undermining No -Wound/Ulcer Outcome Not Healed -Ulcer Cleansing gauze -Foul Odor after Cleansing No -Bioengineered Tissue No -Bleeding Controlled with Pressure -Treatment Response Procedure Tolerated Well -Debridement - Subq, 1st 20sq cm Yes Pain Scale: 0-10 Numeric Is Patient Pain Free? No right leg -Description Sharp -Intensity 6 -Duration (hours) Chronic -Pain Behavior Guarding, Irritability -Pain Aggravating Factors Debridement -Alleviating Factors/Interventions Emotional Support - Nurse 3 - General Ulcer D/C NN Start: 10/07/24 14:42 Freq: Status: Active Protocol: Activity Type Activity Date Activity User E-sign Co-sign Detail Recorded Client Recorded Date Recorded By Document 10/07/24 15:11 [facility] [id number] 10/07/24 15:13 [facility] 10/07/24 15:11 Wound Care Center Nurse 3 #4 Rt med le -Ulcer Cleansing Rinsed/ Irrigated with Saline -Foul Odor after Cleansing No -Primary Dressing Applied AMD Dressing 4x4,Silicone Border Foam 4x4 -Other Dressing hydrogel -Other Covering drsg per jf rn -AMD Dressing 4x4 1 -Silicone Border Foam 4x4 1 RLE -Other pt will apply own when goes home Pain Scale: 0-10 Numeric Is Patient Pain Free? Yes WC - Visit Discharge Discharge Condition Stable Ambulatory Status Ambulatory Transportation Private Auto Additional Wound Anesthesia Used: Cetacaine Tissue Removed: Devitalized traumatic skin flap Charges/Coding Procedures Integumentary 111xxx-113xx: 37078 Violette subq tissue 20 sq cm/< Assessment/Plan Assessment/Plan (1) Non-pressure chronic ulcer of right lower leg with fat layer exposed: CODE(S): L97.912 - Non-pressure chronic ulcer of unspecified part of right lower leg with fat layer exposed (2) Traumatic open wound of right lower leg: CODE(S): S81.801A - Unspecified open wound, right lower leg, initial encounter QUALIFIERS: Encounter type: subsequent encounter Qualified Code(s): S81.801D - Unspecified open wound, right lower leg, subsequent encounter (3) Lumbar scoliosis: CODE(S): M41.9 - Scoliosis, unspecified QUALIFIERS: Scoliosis type: other secondary scoliosis Qualified Code(s): M41.56 - Other secondary scoliosis, lumbar region (4) Low back pain: CODE(S): M54.50 - Low back pain, unspecified (5) DDD (degenerative disc disease), lumbosacral: CODE(S): M51.37 - Other intervertebral disc degeneration, lumbosacral region (6) Hypothyroidism (acquired): CODE(S): E03.9 - Hypothyroidism, unspecified (7) Cataracts, bilateral: CODE(S): H26.9 - Unspecified cataract (8) History of tonsillectomy: CODE(S): Z90.89 - Acquired absence of other organs (9) History of IBS: CODE(S): Z87.19 - Personal history of other diseases of the digestive system (10) Former smoker: CODE(S): Z87.891 - Personal history of nicotine dependence (11) History of lumbar spinal fusion: CODE(S): Z98.1 - Arthrodesis status (12) History of hysterectomy: CODE(S): Z90.710 - Acquired absence of both cervix and uterus (13) History of cervical discectomy: CODE(S): Z98.890 - Other specified postprocedural states (14) History of total hip replacement: CODE(S): Z96.649 - Presence of unspecified artificial hip joint (15) Status post spinal disc removal: CODE(S): Z98.890 - Other specified postprocedural states PLAN: Plan This is a 74-year-old female who presented with traumatic wounds in both lower extremities. Although the patient does not relate significant swelling in her lower extremities, measures to prevent such swelling have been thoroughly discussed. The patient has been encouraged to elevate her lower extremities as much as possible. She has been advised to refrain from prolonged, idle sitting. She is to continue wearing her Tubigrips bilaterally on a daily basis. Activity has been encouraged. The patient has been encouraged to optimize her nutritional intake. The patient attests to the fact that her appetite is good, and she is consuming a well-balanced diet. The traumatic wounds in the left lower extremity are completely healed and epithelialized. A traumatic wound remains on the right pretibial surface. We are to continue the use of collagen hydrogel and Hunter antimicrobial foam dressing, which contains PHMB. This is to be applied topically on a daily basis. The patient has been instructed on appropriate means of application. A noninvasive lower extremity arterial study was performed on June 13, 2024, the results of which revealed no evidence of significant arterial occlusive disease in the lower extremities. Review of the patient's recent laboratory results suggest no significant abnormalities. The patient does not appear to be anemic, serum protein and albumin appear normal, renal function is normal, etc. The patient is to return in 1 week for reeval uation. Total time: 22 minutes
[2024-10-14 14:48] VITALS: BP 150/74; PULSE 64; RESP 16; TEMP 36.6
--- NOTE | 2024-10-15 09:02 | WC ---
PHOTO 10/14/24 RIGHT MED LEG
--- NOTE | 2024-10-15 13:01 | HP.PCM_ITS ---
History of Present Illness Date of Service: 10/14/24 Chief Complaint: Right lower extremity traumatic wound History of Wound: This is a 74-year-old female who has presented repeatedly with traumatic wounds to both lower extremities. A wound on the right pretibial surface persists, though all other lower extremity wounds have healed. The patient is mobile and active. She denies swelling in her legs. She sleeps on a flat surface at night. She denies a history of thrombophlebitis. The patient denies a history of congestive heart failure, myocardial infarction, diabetes mellitus, cerebrovascular accident, hypertension, renal disease, and pulmonary disease. She has a history of hypothyroidism. A limited venous duplex examination was performed on October 26, 2022, examining only the right lower extremity, and revealing no evidence of thrombophlebitis. Valvular competence was not fully evaluated. [facility] Medical History (Updated 10/15/24 @ 13:[address] Natan Mcdaniel MD) Non-pressure chronic ulcer of right calf with fat layer exposed Non-pressure chronic ulcer of right lower leg with fat layer exposed Traumatic open wound of right lower leg Traumatic open wound of left lower leg Non-pressure chronic ulcer of left lower leg with fat layer exposed Non-pressure chronic ulcer of right lower leg with fat layer exposed Traumatic open wound of right lower leg with delayed healing Traumatic open wound of left lower leg with delayed healing Wears glasses Anxiety Alcohol use History of steroid therapy Easy bruising Back pain Injury of back Migraine headache Syncope History of IBS Former smoker Leg cramps History of edema History of stress test Cataracts, bilateral Arthritis Anemia Vitamin D deficiency, unspecified Hypothyroidism Home Medications ?Medication ?Instructions ?Recorded ?Last Taken ?Type lidocaine 5 % topical patch 2 patch topical DAILY 04/10 08/24 1 Day Ago History ~09/21/17 meloxicam 15 mg tablet 15 mg PO QDAY 05/03/1709/22 History doxepin 10 mg capsule 10 mg PO QHS 12/16/19 Unknow n History folic acid 400 mcg tablet 0.4 mg PO DAILY@0800 0 Unknown History linaclotide 145 mcg capsule 145 mcg PO DAILY 12/16/19 Unknown History estradiol 0.1 mg/24 hr semiweekly 2 patch transdermal MOTH 03/15/20 Unknown History transdermal patch (Bessie) acetaminophen 500 mg tablet 1,000 mg PO BID 09/30/22 U nknown History vitamin [id number] B1 100 mg-1 1 ml IM .QMO 01/06/22 Unknown History mg/mL intramuscular solution levothyroxine 50 mcg tablet 50 mcg PO DAILY 03/18/24 U nknown History gabapentin 100 mg capsule 100 mg PO BID 05/07/24 Unkno wn History loratadine 10 mg tablet 10 mg PO .prn 05/07/24 Unkno wn History sulfamethoxazole 800 1 tab PO Q12H #14 tabs 05/27 Unknown Rx mg-trimethoprim 160 mg tablet (Bactrim DS) cephalexin 500 mg capsule 500 mg PO 4X/DAY 07/08/24 Un known History doxycycline hyclate 100 mg tablet 100 mg PO BID Unknown History sulfamethoxazole 800 1 tab PO Q12H #14 tabs 07/08 Unknown Rx mg-trimethoprim 160 mg tablet (Bactrim DS) sulfamethoxazole 800 1 tab PO Q12H wound infectio n #14 09/10/24 Unknown Rx mg-trimethoprim 160 mg tablet tabs (Bactrim DS) Allergy/AdvReac Type Severity Reaction Status Date / Time No Known Allergies Allergy Verified 05/07/24 11:09 Family History Mother Rheumatoid arthritis Father Pancreatic cancer Cancer Grandfather Myocardial infarction Grandmother Thyroid disorder Surgical History Status post spinal disc removal History of tonsillectomy History of lumbar spinal fusion History of total hip replacement History of hysterectomy History of cervical discectomy Social History household members: spouse Smoking Status: Never smoker alcohol intake: current alcohol intake frequency: a few times a week Alcohol type: wine substance use type: does not use what type of physical activity do you participate in: other details: physical therapy frequency: 1-2 times per week Vital Signs Vital Signs Vital Signs: 10/14/24 14:48 Temperature 98 F Temperature Source Temporal Pulse Rate 64 Respiratory Rate 16 Blood Pressure 150/74 H Blood Pressure Mean 99 Blood Pressure Source Monitor Blood Pressure Position Sitting Blood Pressure Location Left Arm Oxygen Delivery Method Room Air Physical Exam Const alert, oriented x3, no apparent distress, average body habitus and no limit ations Constitutional Narrative: The patient's BMI is 19.7. She is of thin body habitus. General Appearance: cooperative, comfortable, well kempt and well developed Orientation / Consciousness: awake, oriented to person, oriented to place and oriented to time Exam Limitations: no limitations HEENT normocephalic, head/scalp atraumatic and hearing grossly normal bilaterally Head and Scalp: normal to inspection, normocephalic and atraumatic Face and Sinus: normal facial exam Nose: external nose normal External Ear: external ears normal Eyes EOMs intact bilaterally General Eye: normal appearance of both eyes Neck full ROM Resp normal respiratory effort, normal air movement, no retractions and no use of accessory muscles Effort and Inspection: able to speak in complete sentences Extremity no calf tenderness General Extremity: Negative for clubbing or cyanosis Skin Wound Narrative: The patient's lower extremities appear warm and well-perfused. Pedal pulses are easily palpable bilaterally. There is no significant swelling or edema in the patient's lower extremities. The wounds on the patient's left lower extremity are completely healed and epithelialized. The traumatic wound on the patient's right pretibial surface persists. It is full-thickness in nature, extending through all layers of the dermis and into the subcutaneous tissues. Wound margins are well beveled. The base of the wound demonstrates a small amount of bioburden and nonviable tissue, with areas of pink, healthy granulation tissue. There is no sign of infection or cellulitis. Dimensions are documented elsewhere. The wound appears to be decreasing in size. Hair: normal Neuro oriented x3, CN's II-XII intact bilaterally, moves all extremities, no focal motor deficits and no sensory deficits noted Sensorium / Orientation: awake, alert, oriented to person, oriented to place and oriented to time Speech: speech normal Psych Appearance: grossly normal and appropriate Attitude: calm Activity / Motor Behavior: appropriate eye contact Speech: normal speech Mood & Affect: euthymic mood Thought Process: normal thought process Thought Content: normal thought content Attention / Concentration: attention grossly intact Debridement Note Debridement Note Wound debrided: Traumatic right pretibial wound Laterality: Right Type of Debridement: Excisional debridement Anesthesia Used: 5% Lidocaine Gel and Cetacaine Depth: Down to and including healthy tissue and in the subcutaneous layer Percentage of wound debrided: 100 Instrument Used: 5mm curette Tissue Removed: Bioburden and nonviable tissue Severity: Fat Layer Exposed Amount of bleeding with debridement: Mild Bleeding Controlled with: Compression and gauze Patient tolerated procedure: Patient tolerated procedure well Post-Debridement Measurements and Additional Note: Post-Debridement Measurements/Treatment WC - Nurse 1 - General Ulcer Assessment Start: 10/07/24 14:42 Freq: Status: Active Protocol: QUIANA Activity Type Activity Date Activity User E-sign Co-sign Detail Recorded Client Recorded Date Recorded By Document 10/07/24 14:42 KW [id number] 10/07/24 14:50 KW Document 10/14/24 14:48 BM [id number] 10/14/24 14:51 BMF 10/07/24 10/14/24 14:42 14:48 WC - Today's Visit Information Type of service Follow-up Visit Follow-up Visit (Physician/PANTRY COOK (Physician/PANTRY COOK ) ) Arrival Mode Ambulatory Ambulatory Transfer Assistance None Patient Identification Verified (Name & Yes Yes ) Patient Requires Transmission-Based No Precautions Vital Signs Temperature (97.8 F-99.1 F) 98.2 F 98 F Temperature Source Temporal Temporal Pulse Rate (60-100) 61 64 Pulse Location Monitor Monitor Respiratory Rate (12-18) 16 16 Respiratory rate source Observation Observation Oxygen Delivery Method Room Air Room Air Blood Pressure (90/60-120/80) 133/76 H 150/74 H Blood Pressure Mean 95 99 Source Monitor Monitor Position Sitting Sitting Blood Pressure Location Right Arm Left Arm History Since Last Visit- (Skip if this is Patient's initial visit) Have you changed medications since your No No last visit? Any new allergies or adverse reactions No No Had a fall/change in ADL's that may No No increase risk of falls Signs or symptoms of abuse and/or No No neglect since last visit Have you been in the hospital since your No No last visit? Has dressing in place as prescribed Yes Yes Has compression in place as prescribed N/A No Has offloadiing in place as prescribed N/A N/A Experienced any changes in pain level or No No management Left Footwear Regular Shoe Regular Shoe Right Footwear Regular Shoe Regular Shoe Pain Scale: 0-10 Numeric Is Patient Pain Free? Yes Yes JOE Tay Nurse 1 - General Ulcer Measurement Start: 10/07/24 14:42 Freq: Status: Active Protocol: Activity Type Activity Date Activity User E-sign Co-sign Detail Recorded Client Recorded Date Recorded By Document 10/07/24 14:42 KW [id number] 10/07/24 14:50 KW Document 10/14/24 14:48 [id number] 10/14/24 14:51 [facility] 10/07/24 10/14/24 14:42 14:48 Wound Center Nurse 1 #4 Rt med le -Combined with other wound No -Current Size (cm) - Length 2.5 2.5 -Current Size (cm) - Width 2 2 -Current Size (cm) - Depth 0.1 0.1 -Total Square Cm 5.0 5.0 -Date of Last Picture (Recall this 10/07/24 10/14/24 field) -Photo Taken Yes -Epithelialization Small 1-33% -Tunneling No -Undermining/Tunneling No -Circular Undermining No -Exudate Amt Medium Medium -Exudate Type Serosanguineous Serosanguineous -Wound Margin Distinct, Flat & Intact Outline Attached -Granulation Amt Large (67-100%) Small (1-33%) -Granulation Quality [place],Red [place] -Slough/Fibrin Yes -Necrosis Amt Small (1-33%) Large (67-100%) -Necrotic Tissue Type Adherent Slough Adherent Slough -Texture (Joyce-wound Skin Appearance) Assessed Assessed, Scarring -Moisture (Joyce-wound Skin Appearance) Assessed Assessed -Color (Joyce-wound Skin Appearance) Assessed Assessed -Temperature (Joyce-wound Skin No Abnormality No Abnormality Appearance) (Pt Warm) (Pt Warm) -Tenderness on Palpation (Joyce-wound No No Skin Appearance) -Ulcer Cleansing Soap and Water Rinsed/ Irrigated with Saline -Foul Odor after Cleansing No No -Anesthetic Used 5% Lidocaine 5% Lidocaine Gel Gel WC - Nurse 2 - General Ulcer CM Notes Start: 10/07/24 14:42 Freq: Status: Active Protocol: Activity Type Activity Date Activity User E-sign Co-sign Detail Recorded Client Recorded Date Recorded By Document 10/07/24 15:01 DS [id number] 10/07/24 15:05 DS Document 10/14/24 15:25 DS [id number] 10/14/24 15:26 DS Edit Result 10/14/24 15:25 DS (1) [id number] 10/14/24 15:29 DS (1) #4 Rt med le - Post Debridement (cm) - Length => 2.5 - Post Debridement (cm) - Width => 2.0 - Post Debridement (cm) - Depth => 0.1 - Total Square (Post) (cm) => 5.00 - Area of Debridement (cm) - Length => 2.5 - Area of Debridement (cm) - Width => 2.0 - Total Square (Area) (cm) => 5.00 10/07/24 10/14/24 15:01 15:25 Wound Center Nurse 2 #4 Rt med le -Time 15: 15:25 -Correct Patient Yes Yes -Correct Side, Site, Position Yes Yes -Correct Procedure Yes Yes -Procedure Performed Yes Yes -Type of Procedure Debridement Debridement -Clinical Debridement Subcutaneous Subcutaneous -Tissue Removed Subcutaneous Subcutaneous -Post Debridement (cm) - Length 2.6 2.5 -Post Debridement (cm) - Width 2.6 2.0 -Post Debridement (cm) - Depth 0.1 0.1 -Total Square (Post) (cm) 6.76 5.00 -Area of Debridement (cm) - Length 2.6 2.5 -Area of Debridement (cm) - Width 2.6 2.0 -Total Square (Area) (cm) 6.76 5.00 -Tunneling No No -Undermining/Tunneling No No -Circular Undermining No No -Wound/Ulcer Outcome Not Healed Not Healed -Ulcer Cleansing gauze -Foul Odor after Cleansing No No -Bioengineered Tissue No No -Bleeding Controlled with Pressure Pressure -Treatment Response Procedure Procedure Tolerated Well Tolerated Well -Debridement - Subq, 1st 20sq cm Yes Yes Pain Scale: 0-10 Numeric Is Patient Pain Free? No No right leg -Description Sharp Sharp -Intensity 6 4 -Duration (hours) Chronic Chronic -Pain Behavior Guarding, Guarding, Irritability Irritability -Pain Aggravating Factors Debridement Debridement -Alleviating Factors/Interventions Emotional Emotional Support Support -Comments cetecaine spray WC - Nurse 3 - General Ulcer D/C NN Start: 10/07/24 14:42 Freq: Status: Active Protocol: Activity Type Activity Date Activity User E-sign Co-sign Detail Recorded Client Recorded Date Recorded By Document 10/07/24 15:11 [facility] [id number] 10/07/24 15:13 [facility] Document 10/14/24 15:35 [facility] [id number] 10/14/24 15:35 [facility] 10/07/24 10/14/24 15:11 15:35 Wound Care Center Nurse 3 #4 Rt med le -Ulcer Cleansing Rinsed/ Rinsed/ Irrigated with Irrigated with Saline Saline -Foul Odor after Cleansing No No -Primary Dressing Applied AMD Dressing Silicone Border 4x4,Silicone Foam 4x4 Border Foam 4x4 -Other Dressing hydrogel hydrogel -Primary Dressing Covered/Secured with Dry Gauze -Other Covering drsg per jf rn -AMD Dressing 4x4 1 -Silicone Border Foam 4x4 1 1 RLE -Other pt will apply pt refused new own when goes tubis. has some home at home Treatment Response Procedure Tolerated Well Pain Scale: 0-10 Numeric Is Patient Pain Free? Yes Yes WC - Visit Discharge Discharge Condition Stable Stable Ambulatory Status Ambulatory Ambulatory Transportation Private Auto Private Auto Additional Wound Anesthesia Used: Cetacaine Tissue Removed: Devitalized traumatic skin flap Charges/Coding Procedures Integumentary [id number]: [id number] [place] subq tissue 20 sq cm/< Assessment/Plan Assessment/Plan (1) Non-pressure chronic ulcer of right calf with fat layer exposed: CODE(S): L97.212 - Non-pressure chronic ulcer of right calf with fat layer exposed (2) Non-pressure chronic ulcer of right lower leg with fat layer exposed: CODE(S): L97.912 - Non-pressure chronic ulcer of unspecified part of right lower leg with fat layer exposed (3) Traumatic open wound of right lower leg: CODE(S): S81.801A - Unspecified open wound, right lower leg, initial encounter QUALIFIERS: Encounter type: subsequent encounter Qualified Code(s): S81.801D - Unspecified open wound, right lower leg, subsequent encounter (4) Lumbar scoliosis: CODE(S): M41.9 - Scoliosis, unspecified QUALIFIERS: Scoliosis type: other secondary scoliosis Qualified Code(s): M41.56 - Other secondary scoliosis, lumbar region (5) Low back pain: CODE(S): M54.50 - Low back pain, unspecified (6) DDD (degenerative disc disease), lumbosacral: CODE(S): M51.37 - Other intervertebral disc degeneration, lumbosacral region (7) Hypothyroidism (acquired): CODE(S): E03.9 - Hypothyroidism, unspecified (8) Cataracts, bilateral: CODE(S): H26.9 - Unspecified cataract (9) History of tonsillectomy: CODE(S): Z90.89 - Acquired absence of other organs (10) History of IBS: CODE(S): Z87.19 - Personal history of other diseases of the digestive system (11) Former smoker: CODE(S): Z87.891 - Personal history of nicotine dependence (12) History of lumbar spinal fusion: CODE(S): Z98.1 - Arthrodesis status (13) History of hysterectomy: CODE(S): Z90.710 - Acquired absence of both cervix and uterus (14) History of cervical discectomy: CODE(S): Z98.890 - Other specified postprocedural states (15) History of total hip replacement: CODE(S): Z96.649 - Presence of unspecified artificial hip joint (16) Status post spinal disc removal: CODE(S): Z98.890 - Other specified postprocedural states PLAN: Plan This is a 74-year-old female who presented with traumatic wounds in both lower extremities. Although the patient does not relate significant swelling in her lower extremities, measures to prevent such swelling have been thoroughly discussed. The patient has been encouraged to elevate her lower extremities as much as possible. She has been advised to refrain from prolonged, idle sitting. She is to continue wearing her Tubigrips bilaterally on a daily basis. Activity has been encouraged. The patient has been encouraged to optimize her nutritional intake. The patient attests to the fact that her appetite is good, and she is consuming a well-balanced diet. The traumatic wounds in the left lower extremity remain completely healed and epithelialized. A traumatic wound persists on the right pretibial surface. We are to continue the use of collagen hydrogel and Hunter antimicrobial foam dressing, which contains PHMB. This is to be applied topically on a daily basis. The patient has been instructed in the appropriate means of application. A noninvasive lower extremity arterial study was performed on June 13, 2024, the results of which revealed no evidence of significant arterial occlusive disease in the lower extremities. Review of the patient's recent laboratory results suggest no significant abnormalities. The patient does not appear to be anemic, serum protein and albumin appear normal, renal function is normal, etc. ultimately, the patient will likely benefit from the use of a cellular tissue product, such as EpiFix. Insurance pre-authorization will be sought. The patient is to return in 1 week for reevaluation. Total time: 24 minutes
[2024-10-21 14:33] VITALS: BP 139/73; PULSE 61; RESP 18; TEMP 36.4
--- NOTE | 2024-10-22 13:47 | WC ---
PHOTO 10/21/24 [facility]
--- NOTE | 2024-10-23 13:14 | HP.PCM_ITS ---
History of Present Illness Date of Service: 10/21/24 Chief Complaint: Right lower extremity traumatic wound History of Wound: This is a 74-year-old female who has presented repeatedly with traumatic wounds to both lower extremities. A wound on the right pretibial surface persists, though all other lower extremity wounds have healed. The patient is mobile and active. She denies swelling in her legs. She sleeps on a flat surface at night. She denies a history of thrombophlebitis. The patient denies a history of congestive heart failure, myocardial infarction, diabetes mellitus, cerebrovascular accident, hypertension, renal disease, and pulmonary disease. She has a history of hypothyroidism. A limited venous duplex examination was performed on October 26, 2022, examining only the right lower extremity, and revealing no evidence of thrombophlebitis. Valvular competence was not fully evaluated. FORMERLY [facility], [facility] Medical History Non-pressure chronic ulcer of right calf with fat layer exposed Non-pressure chronic ulcer of right lower leg with fat layer exposed Traumatic open wound of right lower leg Traumatic open wound of left lower leg Non-pressure chronic ulcer of left lower leg with fat layer exposed Non-pressure chronic ulcer of right lower leg with fat layer exposed Traumatic open wound of right lower leg with delayed healing Traumatic open wound of left lower leg with delayed healing Wears glasses Anxiety Alcohol use History of steroid therapy Easy bruising Back pain Injury of back Migraine headache Syncope History of IBS Former smoker Leg cramps History of edema History of stress test Cataracts, bilateral Arthritis Anemia Vitamin D deficiency, unspecified Hypothyroidism Home Medications ?Medication ?Instructions ?Recorded ?Last Taken ?Type lidocaine 5 % topical patch 2 patch topical DAILY 04/10 08/24 1 Day Ago History ~09/21/17 meloxicam 15 mg tablet 15 mg PO QDAY 05/03/1709/22 History doxepin 10 mg capsule 10 mg PO QHS 12/16/19 Unknow n History folic acid 400 mcg tablet 0.4 mg PO DAILY@0800 0 Unknown History linaclotide 145 mcg capsule 145 mcg PO DAILY 12/16/19 Unknown History estradiol 0.1 mg/24 hr semiweekly 2 patch transdermal MOTH 03/15/20 Unknown History transdermal patch (Bessie) acetaminophen 500 mg tablet 1,000 mg PO BID 09/30/22 U nknown History vitamin [id number] B1 100 mg-1 1 ml IM .QMO 01/06/22 Unknown History mg/mL intramuscular solution levothyroxine 50 mcg tablet 50 mcg PO DAILY 03/18/24 U nknown History gabapentin 100 mg capsule 100 mg PO BID 05/07/24 Unkno wn History loratadine 10 mg tablet 10 mg PO .prn 05/07/24 Unkno wn History sulfamethoxazole 800 1 tab PO Q12H #14 tabs 05/27 Unknown Rx mg-trimethoprim 160 mg tablet (Bactrim DS) cephalexin 500 mg capsule 500 mg PO 4X/DAY 07/08/24 Un known History doxycycline hyclate 100 mg tablet 100 mg PO BID Unknown History sulfamethoxazole 800 1 tab PO Q12H #14 tabs 07/08 Unknown Rx mg-trimethoprim 160 mg tablet (Bactrim DS) sulfamethoxazole 800 1 tab PO Q12H wound infectio n #14 09/10/24 Unknown Rx mg-trimethoprim 160 mg tablet tabs (Bactrim DS) Allergy/AdvReac Type Severity Reaction Status Date / Time No Known Allergies Allergy Verified 05/07/24 11:09 Family History Mother Rheumatoid arthritis Father Pancreatic cancer Cancer Grandfather Myocardial infarction Grandmother Thyroid disorder Surgical History Status post spinal disc removal History of tonsillectomy History of lumbar spinal fusion History of total hip replacement History of hysterectomy History of cervical discectomy Social History household members: spouse Smoking Status: Never smoker alcohol intake: current alcohol intake frequency: a few times a week Alcohol type: wine substance use type: does not use what type of physical activity do you participate in: other details: physical therapy frequency: 1-2 times per week Physical Exam Const alert, oriented x3, no apparent distress, average body habitus and no limitations Constitutional Narrative: The patient's BMI is 19.7. She is of thin body habitus. General Appearance: cooperative, comfortable, well kempt and well developed Orientation / Consciousness: awake, oriented to person, oriented to place and oriented to time Exam Limitations: no limitations HEENT normocephalic, head/scalp atraumatic and hearing grossly normal bilaterally Head and Scalp: normal to inspection, normocephalic and atraumatic Face and Sinus: normal facial exam Nose: external nose normal External Ear: external ears normal Eyes EOMs intact bilaterally General Eye: normal appearance of both eyes Neck full ROM Resp normal respiratory effort, normal air movement, no retractions and no use of accessory muscles Effort and Inspection: able to speak in complete sentences Extremity no calf tenderness General Extremity: normal exam except as noted Skin Wound Narrative: The patient's lower extremities appear warm and well-perfused. Pedal pulses are easily palpable bilaterally. There is no significant swelling or edema in the patient's lower extremities. The wounds on the patient's left lower extremity are completely healed and epithelialized. The traumatic wound on the patient's right pretibial surface persists. It is full-thickness in nature, extending through all layers of the dermis and into the subcutaneous tissues. Wound margins are well beveled. The base of the wound demonstrates a small amount of bioburden and nonviable tissue, with a predominance of pink, healthy granulation tissue. There is no sign of infection or cellulitis. Dimensions are documented elsewhere. The wound appears to be decreasing in size. Hair: normal Neuro oriented x3, CN's II-XII intact bilaterally, moves all extremities, no focal motor deficits and no sensory deficits noted Sensorium / Orientation: awake, alert, oriented to person, oriented to place and oriented to time Speech: speech normal Psych Appearance: grossly normal and appropriate Attitude: calm Activity / Motor Behavior: appropriate eye contact Speech: normal speech Mood & Affect: euthymic mood Thought Process: normal thought process Thought Content: normal thought content Attention / Concentration: attention grossly intact Debridement Note Debridement Note Wound debrided: Traumatic right pretibial wound Laterality: Right Type of Debridement: Excisional debridement Anesthesia Used: 5% Lidocaine Gel and Cetacaine Depth: Down to and including healthy tissue and in the subcutaneous layer Percentage of wound debrided: 100 Instrument Used: 5mm curette Tissue Removed: Bioburden and nonviable tissue Severity: Fat Layer Exposed Amount of bleeding with debridement: Mild Bleeding Controlled with: Compression and gauze Patient tolerated procedure: Patient tolerated procedure well Post-Debridement Measurements and Additional Note: Post-Debridement Measurements/Treatment WC - Nurse 1 - General Ulcer Assessment Start: 10/07/24 14:42 Freq: Status: Active Protocol: JOE.LOWSTEVENT Activity Type Activity Date Activity User E-sign Co-sign Detail Recorded Client Recorded Date Recorded By Document 10/07/24 14:42 KW [id number] 10/07/24 14:50 KW Document 10/14/24 14:48 BM [id number] 10/14/24 14:51 BM Document 10/21/24 14:33 KW [id number] 10/21/24 14:39 KW 10/07/24 10/14/24 10/21/24 14:42 14:48 14:33 - Today's Visit Information Type of service Follow-up Visit Follow-up Visit (Physician/[facility] (Physician/[employer] ) ) Arrival Mode Ambulatory Ambulatory Transfer Assistance None Patient Identification Verified (Name & Yes Yes ) Patient Requires Transmission-Based No Precautions Vital Signs Temperature (97.8 F-99.1 F) 98.2 F 98 F 97.6 F L Temperature Source Temporal Temporal Temporal Pulse Rate (60-100) 61 64 61 Pulse Location Monitor Monitor Monitor Respiratory Rate (12-18) 16 16 18 Respiratory rate source Observation Observation Observation Oxygen Delivery Method Room Air Room Air Room Air Blood Pressure (90/60-120/80) 133/76 H 150/74 H 139/73 H Blood Pressure Mean 95 99 95 Source Monitor Monitor Monitor Position Sitting Sitting Semi-Fowlers Blood Pressure Location Right Arm Left Arm Left Arm History Since Last Visit- (Skip if this is Patient's initial visit) Have you changed medications since your No No No last visit? Any new allergies or adverse reactions No No No Had a fall/change in ADL's that may No No No increase risk of falls Signs or symptoms of abuse and/or No No No neglect since last visit Have you been in the hospital since your No No No last visit? Has dressing in place as prescribed Yes Yes Yes Has compression in place as prescribed N/A No N/A Has offloadiing in place as prescribed N/A N/A N/A Experienced any changes in pain level or No No No management Left Footwear Regular Shoe Regular Shoe Regular Shoe Right Footwear Regular Shoe Regular Shoe Regular Shoe Pain Scale: 0-10 Numeric Is Patient Pain Free? Yes Yes Yes - Nurse 1 - General Ulcer Measurement Start: 10/07/24 14:42 Freq: Status: Active Protocol: Activity Type Activity Date Activity User E-sign Co-sign Detail Recorded Client Recorded Date Recorded By Document 10/07/24 14:42 [id number] 10/07/24 14:50 Document 10/14/24 14:48 [facility] [id number] 10/14/24 14:51 [facility] Document 10/21/24 14:33 KW [id number] 10/21/24 14:39 10/07/24 10/14/24 10/21/24 14:42 14:48 14:33 Wound Center Nurse 1 #4 Rt med le -Combined with other wound No -Current Size (cm) - Length 2.5 2.5 3 -Current Size (cm) - Width 2 2 2.5 -Current Size (cm) - Depth 0.1 0.1 0.1 -Total Square Cm 5.0 5.0 7.5 -Date of Last Picture (Recall this 10/07/24 10/14/24 10/21/24 field) -Photo Taken Yes -Epithelialization Small 1-33% -Tunneling No -Undermining/Tunneling No -Circular Undermining No -Exudate Amt Medium Medium Medium -Exudate Type Serosanguineous Serosanguineous Sanguineous -Wound Margin Distinct, Flat & Intact Distinct, Outline Outline Attached Attached -Granulation Amt Large (67-100%) Small (1-33%) Large (67-100%) -Granulation Quality Viking,Red Viking Viking,Red -Slough/Fibrin Yes -Necrosis Amt Small (1-33%) Large (67-100%) -Necrotic Tissue Type Adherent Slough Adherent Slough -Texture (Joyce-wound Skin Appearance) Assessed Assessed, Assessed Scarring -Moisture (Joyce-wound Skin Appearance) Assessed Assessed Assessed -Color (Joyce-wound Skin Appearance) Assessed Assessed Assessed, Ecchymosis -Temperature (Joyce-wound Skin No Abnormality No Abnormality No Abnormality Appearance) (Pt Warm) (Pt Warm) (Pt Warm) -Tenderness on Palpation (Joyce-wound No No No Skin Appearance) -Ulcer Cleansing Soap and Water Rinsed/ Rinsed/ Irrigated with Irrigated with Saline Saline -Foul Odor after Cleansing No No No -Anesthetic Used 5% Lidocaine 5% Lidocaine 5% Lidocaine Gel Gel Gel WC - Nurse 2 - General Ulcer CM Notes Start: 07/01/25 14:42 Freq: Status: Active Protocol: Activity Type Activity Date Activity User E-sign Co-sign Detail Recorded Client Recorded Date Recorded By Document 10/07/24 15:01 DS [id number] 10/07/24 15:05 DS Document 10/14/24 15:25 DS [id number] 10/14/24 15:26 DS Edit Result 10/14/24 15:25 DS (1) [id number] 10/14/24 15:29 DS Document 10/21/24 14:55 DS [id number] 10/21/24 14:58 DS (1) #4 Rt med le - Post Debridement (cm) - Length => 2.5 - Post Debridement (cm) - Width => 2.0 - Post Debridement (cm) - Depth => 0.1 - Total Square (Post) (cm) => 5.00 - Area of Debridement (cm) - Length => 2.5 - Area of Debridement (cm) - Width => 2.0 - Total Square (Area) (cm) => 5.00 10/07/24 10/14/24 10/21/24 15:01 15:25 14:55 Wound Center Nurse 2 #4 Rt med le -Time 15: 15:25 14:55 -Correct Patient Yes Yes Yes -Correct Side, Site, Position Yes Yes Yes -Correct Procedure Yes Yes Yes -Procedure Performed Yes Yes Yes -Type of Procedure Debridement Debridement Debridement -Clinical Debridement Subcutaneous Subcutaneous Subcutaneous -Tissue Removed Subcutaneous Subcutaneous Subcutaneous -Post Debridement (cm) - Length 2.6 2.5 3.0 -Post Debridement (cm) - Width 2.6 2.0 2.7 -Post Debridement (cm) - Depth 0.1 0.1 0.1 -Total Square (Post) (cm) 6.76 5.00 8.10 -Area of Debridement (cm) - Length 2.6 2.5 3.0 -Area of Debridement (cm) - Width 2.6 2.0 2.7 -Total Square (Area) (cm) 6.76 5.00 8.10 -Tunneling No No No -Undermining/Tunneling No No No -Circular Undermining No No No -Wound/Ulcer Outcome Not Healed Not Healed Not Healed -Ulcer Cleansing gauze gauze -Foul Odor after Cleansing No No No -Bioengineered Tissue No No No -Bleeding Controlled with Pressure Pressure Pressure -Treatment Response Procedure Procedure Procedure Tolerated Well Tolerated Well Tolerated Well -Debridement - Subq, 1st 20sq cm Yes Yes Yes Pain Scale: 0-10 Numeric Is Patient Pain Free? No No Yes right leg -Description Sharp Sharp -Intensity 6 4 -Duration (hours) Chronic Chronic -Pain Behavior Guarding, Guarding, Irritability Irritability -Pain Aggravating Factors Debridement Debridement -Alleviating Factors/Interventions Emotional Emotional Support Support -Comments cetecaine spray - Nurse 3 - General Ulcer D/C NN Start: 10/07/24 14:42 Freq: Status: Active Protocol: Activity Type Activity Date Activity User E-sign Co-sign Detail Recorded Client Recorded Date Recorded By Document 10/07/24 15:11 [facility] [id number] 10/07/24 15:13 [facility] Document 10/14/24 15:35 [facility] [id number] 10/14/24 15:35 [facility] Document 10/21/24 15:10 [facility] [id number] 10/21/24 15:11 [facility] 10/07/24 10/14/24 10/21/24 15:11 15:35 15:10 Wound Care Center Nurse 3 #4 Rt med le -Ulcer Cleansing Rinsed/ Rinsed/ Rinsed/ Irrigated with Irrigated with Irrigated with Saline Saline Saline -Foul Odor after Cleansing No No No -Primary Dressing Applied AMD Dressing Silicone Border AMD Dressing 4x4,Silicone Foam 4x4 4x4,Silicone Border Foam 4x4 Border Foam 4x4 -Other Dressing hydrogel hydrogel hydrogel -Primary Dressing Covered/Secured with Dry Gauze -Other Covering drsg per yessenia rn -AMD Dressing 4x4 1 1 -Silicone Border Foam 4x4 1 1 1 RLE -Other pt will apply pt refused new pt has d tubis own when goes tubis. has some at home, states home at home will apply Treatment Response Procedure Procedure Tolerated Well Tolerated Well Pain Scale: 0-10 Numeric Is Patient Pain Free? Yes Yes Yes - Visit Discharge Discharge Condition Stable Stable Stable Ambulatory Status Ambulatory Ambulatory Ambulatory Transportation Private Auto Private Auto Private Auto Additional Wound Anesthesia Used: Cetacaine Tissue Removed: Devitalized traumatic skin flap Charges/Coding Procedures Integumentary [id number]: [id number] Violette subq tissue 20 sq cm/< Assessment/Plan Assessment/Plan (1) Non-pressure chronic ulcer of right calf with fat layer exposed: CODE(S): L97.212 - Non-pressure chronic ulcer of right calf with fat layer exposed (2) Non-pressure chronic ulcer of right lower leg with fat layer exposed: CODE(S): L97.912 - Non-pressure chronic ulcer of unspecified part of right lower leg with fat layer exposed (3) Traumatic open wound of right lower leg: CODE(S): S81.801A - Unspecified open wound, right lower leg, initial encounter QUALIFIERS: Encounter type: subsequent encounter Qualified Code(s): S81.801D - Unspecified open wound, right lower leg, subsequent encounter (4) Lumbar scoliosis: CODE(S): M41.9 - Scoliosis, unspecified QUALIFIERS: Scoliosis type: other secondary scoliosis Qualified Code(s): M41.56 - Other secondary scoliosis, lumbar region (5) Low back pain: CODE(S): M54.50 - Low back pain, unspecified (6) DDD (degenerative disc disease), lumbosacral: CODE(S): M51.37 - Other intervertebral disc degeneration, lumbosacral region (7) Hypothyroidism (acquired): CODE(S): E03.9 - Hypothyroidism, unspecified (8) Cataracts, bilateral: CODE(S): H26.9 - Unspecified cataract (9) History of tonsillectomy: CODE(S): Z90.89 - Acquired absence of other organs (10) History of IBS: CODE(S): Z87.19 - Personal history of other diseases of the digestive system (11) Former smoker: CODE(S): Z87.891 - Personal history of nicotine dependence (12) History of lumbar spinal fusion: CODE(S): Z98.1 - Arthrodesis status (13) History of hysterectomy: CODE(S): Z90.710 - Acquired absence of both cervix and uterus (14) History of cervical discectomy: CODE(S): Z98.890 - Other specified postprocedural states (15) History of total hip replacement: CODE(S): Z96.649 - Presence of unspecified artificial hip joint (16) Status post spinal disc removal: CODE(S): Z98.890 - Other specified postprocedural states PLAN: Plan This is a 74-year-old female who presented with traumatic wounds in both lower extremities. Although the patient does not relate significant swelling in her lower extremities, measures to prevent such swelling have been thoroughly discussed. The patient has been encouraged to elevate her lower extremities as much as possible. She has been advised to refrain from prolonged, idle sitting. She is to continue wearing her Tubigrips bilaterally on a daily basis. Activity has been encouraged. The patient has been encouraged to optimize her nutritional intake. The patient attests to the fact that her appetite is good, and she is consuming a well-balanced diet. The traumatic wounds in the left lower extremity remain completely healed and epithelialized. A traumatic wound persists on the right pretibial surface. We are to continue the use of collagen hydrogel and Hunter antimicrobial foam dressing, which contains PHMB. This is to be applied topically on a daily basis. The patient has been instructed in the appropriate means of application. A noninvasive lower extremity arterial study was performed on June 13, 2024, the results of which revealed no evidence of significant arterial occlusive disease in the lower extremities. The patient will likely benefit from the use of a cellular tissue product, such as EpiFix. Insurance pre-authorization has been obtained. It is anticipated that the EpiFix allograft will be applied at the patient's next visit. The patient is to return in 1 week for reevaluation. Total time: 25 minutes
[2024-10-28 14:52] VITALS: BP 150/88; PULSE 69; RESP 18; TEMP 36.6
--- NOTE | 2024-10-29 10:21 | WC ---
PHOTO - RIGHT MED LEG 10-28-24
--- NOTE | 2024-10-30 15:35 | PCM.WC.HP ---
History of Present Illness Date of Service: 10/28/24 Chief Complaint: Right lower extremity traumatic wound History of Wound: This is a 74-year-old female who has presented repeatedly with traumatic wounds to both lower extremities. A wound on the right pretibial surface persists, though all other lower extremity wounds have healed. The patient is mobile and active. She denies swelling in her legs. She sleeps on a flat surface at night. She denies a history of thrombophlebitis. The patient denies a history of congestive heart failure, myocardial infarction, diabetes mellitus, cerebrovascular accident, hypertension, renal disease, and pulmonary disease. She has a history of hypothyroidism. A limited venous duplex examination was performed on October 26, 2022, examining only the right lower extremity, and revealing no evidence of thrombophlebitis. Valvular competence was not fully evaluated. [facility] Medical History Non-pressure chronic ulcer of right calf with fat layer exposed Non-pressure chronic ulcer of right lower leg with fat layer exposed Traumatic open wound of right lower leg Traumatic open wound of left lower leg Non-pressure chronic ulcer of left lower leg with fat layer exposed Non-pressure chronic ulcer of right lower leg with fat layer exposed Traumatic open wound of right lower leg with delayed healing Traumatic open wound of left lower leg with delayed healing Wears glasses Anxiety Alcohol use History of steroid therapy Easy bruising Back pain Injury of back Migraine headache Syncope History of IBS Former smoker Leg cramps History of edema History of stress test Cataracts, bilateral Arthritis Anemia Vitamin D deficiency, unspecified Hypothyroidism Home Medications ?Medication ?Instructions ?Recorded ?Last Taken ?Type lidocaine 5 % topical patch 2 patch topical DAILY 05/03/17 1 Day Ago History ~09/21/17 meloxicam 15 mg tablet 15 mg PO QDAY 05/03/17 09/22/17 History doxepin 10 mg capsule 10 mg PO QHS 12/16/19 Unknown History folic acid 400 mcg tablet 0.4 mg PO DAILY@0800 12/16/19 Unknown History linaclotide 145 mcg capsule 145 mcg PO DAILY 12/16/19 Unknown History estradiol 0.1 mg/24 hr semiweekly 2 patch transdermal MOTH 03/15/20 Unknown History transdermal patch (Bessie) acetaminophen 500 mg tablet 1,000 mg PO BID 01/06/22 Unknown History vitamin [id number] B1 100 mg-1 1 ml IM .QMO 01/06/22 Unknown History mg/mL intramuscular solution levothyroxine 50 mcg tablet 50 mcg PO DAILY 03/18/24 Unknown History gabapentin 100 mg capsule 100 mg PO BID 05/07/24 Unknown History loratadine 10 mg tablet 10 mg PO .prn 05/07/24 Unknown History sulfamethoxazole 800 1 tab PO Q12H #14 tabs 05/27/24 Unknown Rx mg-trimethoprim 160 mg tablet (Bactrim DS) cephalexin 500 mg capsule 500 mg PO 4X/DAY 07/08/24 Unknown History doxycycline hyclate 100 mg tablet 100 mg PO BID 07/08/24 Unknown History sulfamethoxazole 800 1 tab PO Q12H #14 tabs 07/08/24 Unknown Rx mg-trimethoprim 160 mg tablet (Bactrim DS) sulfamethoxazole 800 1 tab PO Q12H wound infection #14 09/10/24 Unknown Rx mg-trimethoprim 160 mg tablet tabs (Bactrim DS) Allergy/AdvReac Type Severity Reaction Status Date / Time No Known Allergies Allergy Verified 05/07/24 11:09 Family History Mother Rheumatoid arthritis Father Pancreatic cancer Cancer Grandfather Myocardial infarction Grandmother Thyroid disorder Surgical History Status post spinal disc removal History of tonsillectomy History of lumbar spinal fusion History of total hip replacement History of hysterectomy History of cervical discectomy Social History household members: spouse Smoking Status: Never smoker alcohol intake: current alcohol intake frequency: a few times a week Alcohol type: wine substance use type: does not use what type of physical activity do you participate in: other details: physical therapy frequency: 1-2 times per week Physical Exam Const alert, oriented x3, no apparent distress, average body habitus and no limitations Constitutional Narrative: The patient's BMI is 19.7. She is of thin body habitus. General Appearance: cooperative, comfortable, well kempt and well developed Orientation / Consciousness: awake, oriented to person, oriented to place and oriented to time Exam Limitations: no limitations HEENT normocephalic, head/scalp atraumatic and hearing grossly normal bilaterally Head and Scalp: normal to inspection, normocephalic and atraumatic Face and Sinus: normal facial exam Nose: external nose normal External Ear: external ears normal Eyes EOMs intact bilaterally General Eye: normal appearance of both eyes Neck full ROM Resp normal respiratory effort, normal air movement, no retractions and no use of accessory muscles Effort and Inspection: able to speak in complete sentences Extremity no calf tenderness General Extremity: normal exam except as noted Skin Wound Narrative: The patient's lower extremities appear warm and well-perfused. Pedal pulses are easily palpable bilaterally. There is no significant swelling or edema in the patient's lower extremities. The wounds on the patient's left lower extremity remain completely healed and epithelialized. The traumatic wound on the patient's right pretibial surface persists. It is full-thickness in nature, extending through all layers of the dermis and into the subcutaneous tissues. Wound margins are well beveled. The base of the wound demonstrates a small amount of bioburden and nonviable tissue, with a predominance of pink, healthy granulation tissue. There is no sign of infection or cellulitis. Dimensions are documented elsewhere. The wound appears to be decreasing in size. Hair: normal Neuro oriented x3, CN's II-XII intact bilaterally, moves all extremities, no focal motor deficits and no sensory deficits noted Sensorium / Orientation: awake, alert, oriented to person, oriented to place and oriented to time Speech: speech normal Psych Appearance: grossly normal and appropriate Attitude: calm Activity / Motor Behavior: appropriate eye contact Speech: normal speech Mood & Affect: euthymic mood Thought Process: normal thought process Thought Content: normal thought content Attention / Concentration: attention grossly intact Debridement Note Debridement Note Wound debrided: Traumatic right pretibial wound Laterality: Right Type of Debridement: Excisional debridement Anesthesia Used: 5% Lidocaine Gel and Cetacaine Depth: Down to and including healthy tissue and in the subcutaneous layer Percentage of wound debrided: 100 Instrument Used: 5mm curette Tissue Removed: Bioburden and nonviable tissue Severity: Fat Layer Exposed Amount of bleeding with debridement: Mild Bleeding Controlled with: Compression and gauze Patient tolerated procedure: Patient tolerated procedure well Post-Debridement Measurements and Additional Note: Post-Debridement Measurements/Treatment JOE - Nurse 1 - General Ulcer Assessment Start: 10/07/24 14:42 Freq: Status: Active Protocol: WC.LOWEXT Activity Type Activity Date Activity User E-sign Co-sign Detail Recorded Client Recorded Date Recorded By Document 10/07/24 14:42 KW [id number] 10/07/24 14:50 KW Document 10/14/24 14:48 [facility] [id number] 10/14/24 14:51 BM Document 10/21/24 14:33 KW [id number] 10/21/24 14:39 KW Document 10/28/24 14:52 [id number] 10/28/24 14:55 KW 10/07/24 10/14/24 10/21/24 14:42 14:48 14:33 - Today's Visit Information Type of service Follow-up Visit Follow-up Visit (Physician/COVERING AND LINING SUPERVISOR (Physician/COVERING AND LINING SUPERVISOR ) ) Arrival Mode Ambulatory Ambulatory Transfer Assistance None Patient Identification Verified (Name & Yes Yes ) Patient Requires Transmission-Based No Precautions Vital Signs Temperature (97.8 F-99.1 F) 98.2 F 98 F 97.6 F L Temperature Source Temporal Temporal Temporal Pulse Rate (60-100) 61 64 61 Pulse Location Monitor Monitor Monitor Respiratory Rate (12-18) 16 16 18 Respiratory rate source Observation Observation Observation Oxygen Delivery Method Room Air Room Air Room Air Blood Pressure (90/60-120/80) 133/76 H 150/74 H 139/73 H Blood Pressure Mean 95 99 95 Source Monitor Monitor Monitor Position Sitting Sitting Semi-Fowlers Blood Pressure Location Right Arm Left Arm Left Arm History Since Last Visit- (Skip if this is Patient's initial visit) Have you changed medications since your No No No last visit? Any new allergies or adverse reactions No No No Had a fall/change in ADL's that may No No No increase risk of falls Signs or symptoms of abuse and/or No No No neglect since last visit Have you been in the hospital since your No No No last visit? Has dressing in place as prescribed Yes Yes Yes Has compression in place as prescribed N/A No N/A Has offloadiing in place as prescribed N/A N/A N/A Experienced any changes in pain level or No No No management Left Footwear Regular Shoe Regular Shoe Regular Shoe Right Footwear Regular Shoe Regular Shoe Regular Shoe Pain Scale: 0-10 Numeric Is Patient Pain Free? Yes Yes Yes 10/28/24 14:52 - Today's Visit Information Type of service Follow-up Visit (Physician/COVERING AND LINING SUPERVISOR ) Arrival Mode Ambulatory Transfer Assistance Patient Identification Verified (Name & Yes ) Patient Requires Transmission-Based Precautions Vital Signs Temperature (97.8 F-99.1 F) 97.9 F Temperature Source Temporal Pulse Rate (60-100) 69 Pulse Location Monitor Respiratory Rate (12-18) 18 Respiratory rate source Observation Oxygen Delivery Method Room Air Blood Pressure (90/60-120/80) 150/88 H Blood Pressure Mean 108 Source Monitor Position Sitting Blood Pressure Location Left Arm History Since Last Visit- (Skip if this is Patient's initial visit) Have you changed medications since your No last visit? Any new allergies or adverse reactions No Had a fall/change in ADL's that may No increase risk of falls Signs or symptoms of abuse and/or No neglect since last visit Have you been in the hospital since your No last visit? Has dressing in place as prescribed Yes Has compression in place as prescribed Yes Has offloadiing in place as prescribed N/A Experienced any changes in pain level or No management Left Footwear Regular Shoe Right Footwear Regular Shoe Pain Scale: 0-10 Numeric Is Patient Pain Free? Yes - Nurse 1 - General Ulcer Measurement Start: 10/07/24 14:42 Freq: Status: Active Protocol: Activity Type Activity Date Activity User E-sign Co-sign Detail Recorded Client Recorded Date Recorded By Document 10/07/24 14:42 [id number] 10/07/24 14:50 Document 10/14/24 14:48 [facility] [id number] 10/14/24 14:51 [facility] Document 10/21/24 14:33 [id number] 10/21/24 14:39 Document 10/28/24 14:52 [id number] 10/28/24 14:55 10/07/24 10/14/24 10/21/24 14:42 14:48 14:33 Wound Center Nurse 1 #4 Rt med le -Combined with other wound No -Current Size (cm) - Length 2.5 2.5 3 -Current Size (cm) - Width 2 2 2.5 -Current Size (cm) - Depth 0.1 0.1 0.1 -Total Square Cm 5.0 5.0 7.5 -Date of Last Picture (Recall this 10/07/24 10/14/24 10/21/24 field) -Photo Taken Yes -Epithelialization Small 1-33% -Tunneling No -Undermining/Tunneling No -Circular Undermining No -Exudate Amt Medium Medium Medium -Exudate Type Serosanguineous Serosanguineous Sanguineous -Wound Margin Distinct, Flat & Intact Distinct, Outline Outline Attached Attached -Granulation Amt Large (67-100%) Small (1-33%) Large (67-100%) -Granulation Quality [place],Red [place],Red -Slough/Fibrin Yes -Necrosis Amt Small (1-33%) Large (67-100%) -Necrotic Tissue Type Adherent Slough Adherent Slough -Texture (Joyce-wound Skin Appearance) Assessed Assessed, Assessed Scarring -Moisture (Joyce-wound Skin Appearance) Assessed Assessed Assessed -Color (Joyce-wound Skin Appearance) Assessed Assessed Assessed, Ecchymosis -Temperature (Joyce-wound Skin No Abnormality No Abnormality No Abnormality Appearance) (Pt Warm) (Pt Warm) (Pt Warm) -Tenderness on Palpation (Joyce-wound No No No Skin Appearance) -Ulcer Cleansing Soap and Water Rinsed/ Rinsed/ Irrigated with Irrigated with Saline Saline -Foul Odor after Cleansing No No No -Anesthetic Used 5% Lidocaine 5% Lidocaine 5% Lidocaine Gel Gel Gel 10/28/24 14:52 Wound Center Nurse 1 #4 Rt med le -Combined with other wound -Current Size (cm) - Length 3 -Current Size (cm) - Width 3.5 -Current Size (cm) - Depth 0.1 -Total Square Cm 10.5 -Date of Last Picture (Recall this 10/28/24 field) -Photo Taken -Epithelialization -Tunneling -Undermining/Tunneling -Circular Undermining -Exudate Amt Medium -Exudate Type Serosanguineous -Wound Margin Distinct, Outline Attached -Granulation Amt Large (67-100%) -Granulation Quality Red -Slough/Fibrin -Necrosis Amt -Necrotic Tissue Type -Texture (Joyce-wound Skin Appearance) Assessed -Moisture (Joyce-wound Skin Appearance) Assessed -Color (Joyce-wound Skin Appearance) Assessed -Temperature (Joyce-wound Skin No Abnormality Appearance) (Pt Warm) -Tenderness on Palpation (Joyce-wound No Skin Appearance) -Ulcer Cleansing Rinsed/ Irrigated with Saline -Foul Odor after Cleansing No -Anesthetic Used 5% Lidocaine Gel WC - Nurse 2 - General Ulcer CM Notes Start: 10/07/24 14:42 Freq: Status: Active Protocol: Activity Type Activity Date Activity User E-sign Co-sign Detail Recorded Client Recorded Date Recorded By Document 10/07/24 15:01 DS [id number] 10/07/24 15:05 DS Document 10/14/24 15:25 DS [id number] 10/14/24 15:26 DS Edit Result 10/14/24 15:25 DS (1) [id number] 10/14/24 15:29 DS Document 10/21/24 14:55 DS [id number] 10/21/24 14:58 DS Document 10/28/24 15:26 DS [id number] 10/28/24 15:33 DS (1) #4 Rt med le - Post Debridement (cm) - Length => 2.5 - Post Debridement (cm) - Width => 2.0 - Post Debridement (cm) - Depth => 0.1 - Total Square (Post) (cm) => 5.00 - Area of Debridement (cm) - Length => 2.5 - Area of Debridement (cm) - Width => 2.0 - Total Square (Area) (cm) => 5.00 10/07/24 10/14/24 10/21/24 15:01 15:25 14:55 Wound Center Nurse 2 #4 Rt med le -Time 15: 15:25 14:55 -Correct Patient Yes Yes Yes -Correct Side, Site, Position Yes Yes Yes -Correct Procedure Yes Yes Yes -Procedure Performed Yes Yes Yes -Type of Procedure Debridement Debridement Debridement -Clinical Debridement Subcutaneous Subcutaneous Subcutaneous -Tissue Removed Subcutaneous Subcutaneous Subcutaneous -Post Debridement (cm) - Length 2.6 2.5 3.0 -Post Debridement (cm) - Width 2.6 2.0 2.7 -Post Debridement (cm) - Depth 0.1 0.1 0.1 -Total Square (Post) (cm) 6.76 5.00 8.10 -Area of Debridement (cm) - Length 2.6 2.5 3.0 -Area of Debridement (cm) - Width 2.6 2.0 2.7 -Total Square (Area) (cm) 6.76 5.00 8.10 -Tunneling No No No -Undermining/Tunneling No No No -Circular Undermining No No No -Wound/Ulcer Outcome Not Healed Not Healed Not Healed -Ulcer Cleansing gauze gauze -Foul Odor after Cleansing No No No -Bioengineered Tissue No No No -Bleeding Controlled with Pressure Pressure Pressure -Treatment Response Procedure Procedure Procedure Tolerated Well Tolerated Well Tolerated Well -Debridement - Subq, 1st 20sq cm Yes Yes Yes Pain Scale: 0-10 Numeric Is Patient Pain Free? No No Yes right leg -Description Sharp Sharp -Intensity 6 4 -Duration (hours) Chronic Chronic -Pain Behavior Guarding, Guarding, Irritability Irritability -Pain Aggravating Factors Debridement Debridement -Alleviating Factors/Interventions Emotional Emotional Support Support -Comments cetecaine spray 10/28/24 15:26 Wound Center Nurse 2 #4 Rt med le -Time 15:26 -Correct Patient Yes -Correct Side, Site, Position Yes -Correct Procedure Yes -Procedure Performed Yes -Type of Procedure Debridement -Clinical Debridement Subcutaneous -Tissue Removed Subcutaneous -Post Debridement (cm) - Length 3.0 -Post Debridement (cm) - Width 2.9 -Post Debridement (cm) - Depth 0.1 -Total Square (Post) (cm) 8.70 -Area of Debridement (cm) - Length 3.0 -Area of Debridement (cm) - Width 2.9 -Total Square (Area) (cm) 8.70 -Tunneling No -Undermining/Tunneling No -Circular Undermining No -Wound/Ulcer Outcome Not Healed -Ulcer Cleansing -Foul Odor after Cleansing No -Bioengineered Tissue No -Bleeding Controlled with Pressure -Treatment Response Procedure Tolerated Well -Debridement - Subq, 1st 20sq cm Yes Pain Scale: 0-10 Numeric Is Patient Pain Free? No right leg -Description Sharp,Throbbing -Intensity 6 -Duration (hours) Chronic -Pain Behavior Moaning, Guarding -Pain Aggravating Factors Debridement -Alleviating Factors/Interventions Distraction -Comments WC - Nurse 3 - General Ulcer D/C NN Start: 10/07/24 14:42 Freq: Status: Active Protocol: Activity Type Activity Date Activity User E-sign Co-sign Detail Recorded Client Recorded Date Recorded By Document 10/07/24 15:11 [facility] [id number] 10/07/24 15:13 BM Document 10/14/24 15:35 [facility] [id number] 10/14/24 15:35 [facility] Document 10/21/24 15:10 [facility] [id number] 10/21/24 15:11 BM Document 10/28/24 15:47 KW [id number] 10/28/24 15:48 KW 10/07/24 10/14/24 10/21/24 15:11 15:35 15:10 Wound Care Center Nurse 3 #4 Rt med le -Ulcer Cleansing Rinsed/ Rinsed/ Rinsed/ Irrigated with Irrigated with Irrigated with Saline Saline Saline -Foul Odor after Cleansing No No No -Primary Dressing Applied AMD Dressing Silicone Border AMD Dressing 4x4,Silicone Foam 4x4 4x4,Silicone Border Foam 4x4 Border Foam 4x4 -Other Dressing hydrogel hydrogel hydrogel -Primary Dressing Covered/Secured with Dry Gauze -Other Covering drsg per jf rn -AMD Dressing 4x4 1 1 -Silicone Border Foam 4x4 1 1 1 RLE -Other pt will apply pt refused new pt has d tubis own when goes tubis. has some at home, states home at home will apply Treatment Response Procedure Procedure Tolerated Well Tolerated Well Pain Scale: 0-10 Numeric Is Patient Pain Free? Yes Yes Yes WC - Visit Discharge Discharge Condition Stable Stable Stable Ambulatory Status Ambulatory Ambulatory Ambulatory Transportation Private Auto Private Auto Private Auto Medication Reconcilliation completed & provided to patient/care provider Clinical Summary of Care Provided 10/28/24 15:47 Wound Care Center Nurse 3 #4 Rt med le -Ulcer Cleansing Rinsed/ Irrigated with Saline -Foul Odor after Cleansing -Primary Dressing Applied AMD Dressing 4x4,Silicone Border Foam 4x4 -Other Dressing hydrogel -Primary Dressing Covered/Secured with -Other Covering -AMD Dressing 4x4 1 -Silicone Border Foam 4x4 1 RLE -Other Treatment Response Pain Scale: 0-10 Numeric Is Patient Pain Free? Yes WC - Visit Discharge Discharge Condition Stable Ambulatory Status Ambulatory Transportation Private Auto Medication Reconcilliation completed & No provided to patient/care provider Clinical Summary of Care Provided Yes Additional Wound Anesthesia Used: Cetacaine Tissue Removed: Devitalized traumatic skin flap Charges/Coding Procedures Integumentary [id number]: [id number] [place] subq tissue 20 sq cm/< Assessment/Plan Assessment/Plan (1) Non-pressure chronic ulcer of right calf with fat layer exposed: CODE(S): L97.212 - Non-pressure chronic ulcer of right calf with fat layer exposed (2) Non-pressure chronic ulcer of right lower leg with fat layer exposed: CODE(S): L97.912 - Non-pressure chronic ulcer of unspecified part of right lower leg with fat layer exposed (3) Traumatic open wound of right lower leg: CODE(S): S81.801A - Unspecified open wound, right lower leg, initial encounter QUALIFIERS: Encounter type: subsequent encounter Qualified Code(s): S81.801D - Unspecified open wound, right lower leg, subsequent encounter (4) Lumbar scoliosis: CODE(S): M41.9 - Scoliosis, unspecified QUALIFIERS: Scoliosis type: other secondary scoliosis Qualified Code(s): M41.56 - Other secondary scoliosis, lumbar region (5) Low back pain: CODE(S): M54.50 - Low back pain, unspecified (6) DDD (degenerative disc disease), lumbosacral: CODE(S): M51.37 - Other intervertebral disc degeneration, lumbosacral region (7) Hypothyroidism (acquired): CODE(S): E03.9 - Hypothyroidism, unspecified (8) Cataracts, bilateral: CODE(S): H26.9 - Unspecified cataract (9) History of tonsillectomy: CODE(S): Z90.89 - Acquired absence of other organs (10) History of IBS: CODE(S): Z87.19 - Personal history of other diseases of the digestive system (11) Former smoker: CODE(S): Z87.891 - Personal history of nicotine dependence (12) History of lumbar spinal fusion: CODE(S): Z98.1 - Arthrodesis status (13) History of hysterectomy: CODE(S): Z90.710 - Acquired absence of both cervix and uterus (14) History of cervical discectomy: CODE(S): Z98.890 - Other specified postprocedural states (15) History of total hip replacement: CODE(S): Z96.649 - Presence of unspecified artificial hip joint (16) Status post spinal disc removal: CODE(S): Z98.890 - Other specified postprocedural states PLAN: Plan This is a 74-year-old female who presented with traumatic wounds in both lower extremities. Although the patient does not relate significant swelling in her lower extremities, measures to prevent such swelling have been thoroughly discussed. The patient has been encouraged to elevate her lower extremities as much as possible. She has been advised to refrain from prolonged, idle sitting. She is to continue wearing her Tubigrips bilaterally on a daily basis. Activity has been encouraged. The patient has been encouraged to optimize her nutritional intake. The patient attests to the fact that her appetite is good, and she is consuming a well-balanced diet. The traumatic wounds in the left lower extremity remain completely healed and epithelialized. A traumatic wound persists on the right pretibial surface. We are to continue the use of collagen hydrogel and Hunter antimicrobial foam dressing, which contains PHMB. This is to be applied topically on a daily basis. The patient has been instructed in the appropriate means of application. A noninvasive lower extremity arterial study was performed on June 13, 2024, the results of which revealed no evidence of significant arterial occlusive disease in the lower extremities. The patient will likely benefit from the use of a cellular tissue product, such as EpiFix. Insurance pre-authorization has been obtained. It is anticipated that the EpiFix allograft will be applied at the patient's next visit. The patient is to return in 1 week for reevaluation. Total time: 24 minutes
[2024-11-04 14:24] VITALS: BP 127/99; PULSE 92; RESP 16; TEMP 36.7
--- NOTE | 2024-11-05 12:22 | PCM.WC.HP ---
History of Present Illness Date of Service: 11/04/24 Chief Complaint: Right lower extremity traumatic wound History of Wound: This is a 74-year-old female who has presented repeatedly with traumatic wounds to both lower extremities. A wound on the right pretibial surface persists, though all other lower extremity wounds have healed. The patient is mobile and active. She denies swelling in her legs. She sleeps on a flat surface at night. She denies a history of thrombophlebitis. The patient denies a history of congestive heart failure, myocardial infarction, diabetes mellitus, cerebrovascular accident, hypertension, renal disease, and pulmonary disease. She has a history of hypothyroidism. A limited venous duplex examination was performed on October 26, 2022, examining only the right lower extremity, and revealing no evidence of thrombophlebitis. Valvular competence was not fully evaluated. [facility] Medical History Non-pressure chronic ulcer of right calf with fat layer exposed Non-pressure chronic ulcer of right lower leg with fat layer exposed Traumatic open wound of right lower leg Traumatic open wound of left lower leg Non-pressure chronic ulcer of left lower leg with fat layer exposed Non-pressure chronic ulcer of right lower leg with fat layer exposed Traumatic open wound of right lower leg with delayed healing Traumatic open wound of left lower leg with delayed healing Wears glasses Anxiety Alcohol use History of steroid therapy Easy bruising Back pain Injury of back Migraine headache Syncope History of IBS Former smoker Leg cramps History of edema History of stress test Cataracts, bilateral Arthritis Anemia Vitamin D deficiency, unspecified Hypothyroidism Home Medications ?Medication ?Instructions ?Recorded ?Last Taken ?Type lidocaine 5 % topical patch 2 patch topical DAILY 05/03/17 1 Day Ago History ~09/21/17 meloxicam 15 mg tablet 15 mg PO QDAY 05/03/17 09/22/17 History doxepin 10 mg capsule 10 mg PO QHS 12/16/19 Unknown History folic acid 400 mcg tablet 0.4 mg PO DAILY@0800 12/16/19 Unknown History linaclotide 145 mcg capsule 145 mcg PO DAILY 12/16/19 Unknown History estradiol 0.1 mg/24 hr semiweekly 2 patch transdermal MOTH 03/15/20 Unknown History transdermal patch (Bessie) acetaminophen 500 mg tablet 1,000 mg PO BID 01/06/22 Unknown History vitamin [id number] B1 100 mg-1 1 ml IM .QMO 01/06/22 Unknown History mg/mL intramuscular solution levothyroxine 50 mcg tablet 50 mcg PO DAILY 03/18/24 Unknown History gabapentin 100 mg capsule 100 mg PO BID 05/07/24 Unknown History loratadine 10 mg tablet 10 mg PO .prn 05/07/24 Unknown History sulfamethoxazole 800 1 tab PO Q12H #14 tabs 05/27/24 Unknown Rx mg-trimethoprim 160 mg tablet (Bactrim DS) cephalexin 500 mg capsule 500 mg PO 4X/DAY 07/08/24 Unknown History doxycycline hyclate 100 mg tablet 100 mg PO BID 07/08/24 Unknown History sulfamethoxazole 800 1 tab PO Q12H #14 tabs 07/08/24 Unknown Rx mg-trimethoprim 160 mg tablet (Bactrim DS) sulfamethoxazole 800 1 tab PO Q12H wound infection #14 09/10/24 Unknown Rx mg-trimethoprim 160 mg tablet tabs (Bactrim DS) Allergy/AdvReac Type Severity Reaction Status Date / Time No Known Allergies Allergy Verified 05/07/24 11:09 Family History Mother Rheumatoid arthritis Father Pancreatic cancer Cancer Grandfather Myocardial infarction Grandmother Thyroid disorder Surgical History Status post spinal disc removal History of tonsillectomy History of lumbar spinal fusion History of total hip replacement History of hysterectomy History of cervical discectomy Social History household members: spouse Smoking Status: Never smoker alcohol intake: current alcohol intake frequency: a few times a week Alcohol type: wine substance use type: does not use what type of physical activity do you participate in: other details: physical therapy frequency: 1-2 times per week Vital Signs Vital Signs Vital Signs: 11/04/24 14:24 Temperature 98.1 F Temperature Source Temporal Pulse Rate 92 Respiratory Rate 16 Blood Pressure 127/99 H Blood Pressure Mean 108 Oxygen Delivery Method Room Air Physical Exam Const alert, oriented x3, no apparent distress, average body habitus and no limitations Constitutional Narrative: The patient's BMI is 19.7. She is of thin body habitus. General Appearance: cooperative, comfortable, well kempt and well developed Orientation / Consciousness: awake, oriented to person, oriented to place and oriented to time Exam Limitations: no limitations HEENT normocephalic, head/scalp atraumatic and hearing grossly normal bilaterally Head and Scalp: normal to inspection, normocephalic and atraumatic Face and Sinus: normal facial exam Nose: external nose normal External Ear: external ears normal Eyes EOMs intact bilaterally General Eye: normal appearance of both eyes Neck full ROM Resp normal respiratory effort, normal air movement, no retractions and no use of accessory muscles Effort and Inspection: able to speak in complete sentences Extremity no clubbing, cyanosis or edema and no calf tenderness General Extremity: normal exam except as noted Skin Wound Narrative: The patient's lower extremities appear warm and well-perfused. Pedal pulses are easily palpable bilaterally. There is no significant swelling or edema in the patient's lower extremities. The wounds on the patient's left lower extremity remain completely healed and epithelialized. The traumatic wound on the patient's right pretibial surface persists. It is full-thickness in nature, extending through all layers of the dermis and into the subcutaneous tissues. Wound margins are well beveled. The base of the wound demonstrates a small amount of bioburden and nonviable tissue, with a predominance of pink, healthy granulation tissue. There is evidence of epithelialization. There is no sign of infection or cellulitis. Dimensions are documented elsewhere. The wound appears to be slightly larger. Hair: normal Neuro oriented x3, CN's II-XII intact bilaterally, moves all extremities, no focal motor deficits and no sensory deficits noted Sensorium / Orientation: awake, alert, oriented to person, oriented to place and oriented to time Speech: speech normal Psych Appearance: grossly normal and appropriate Attitude: calm Activity / Motor Behavior: appropriate eye contact Speech: normal speech Mood & Affect: euthymic mood Thought Process: normal thought process Thought Content: normal thought content Attention / Concentration: attention grossly intact Debridement Note Debridement Note Wound debrided: Traumatic right pretibial wound Laterality: Right Type of Debridement: Excisional debridement Anesthesia Used: 5% Lidocaine Gel and Cetacaine Depth: Down to and including healthy tissue and in the subcutaneous layer Percentage of wound debrided: 100 Instrument Used: 5mm curette Tissue Removed: Bioburden and nonviable tissue Severity: Fat Layer Exposed Amount of bleeding with debridement: Mild Bleeding Controlled with: Compression and gauze Patient tolerated procedure: Patient tolerated procedure well Post-Debridement Measurements and Additional Note: Post-Debridement Measurements/Treatment WC - Nurse 1 - General Ulcer Assessment Start: 10/07/24 14:42 Freq: Status: Active Protocol: QUIANA Activity Type Activity Date Activity User E-sign Co-sign Detail Recorded Client Recorded Date Recorded By Document 10/07/24 14:42 KW [id number] 10/07/24 14:50 KW Document 10/14/24 14:48 BMF [id number] 10/14/24 14:51 BMF Document 10/21/24 14:33 KW [id number] 10/21/24 14:39 KW Document 10/28/24 14:52 KW [id number] 10/28/24 14:55 KW Document 11/04/24 14:24 KW [id number] 11/04/24 14:28 KW 10/07/24 10/14/24 10/21/24 14:42 14:48 14:33 WC - Today's Visit Information Type of service Follow-up Visit Follow-up Visit (Physician/CONCRETE LABORER (Physician/CONCRETE LABORER ) ) Arrival Mode Ambulatory Ambulatory Transfer Assistance None Patient Identification Verified (Name & Yes Yes ) Patient Requires Transmission-Based No Precautions Vital Signs Temperature (97.8 F-99.1 F) 98.2 F 98 F 97.6 F L Temperature Source Temporal Temporal Temporal Pulse Rate (60-100) 61 64 61 Pulse Location Monitor Monitor Monitor Respiratory Rate (12-18) 16 16 18 Respiratory rate source Observation Observation Observation Oxygen Delivery Method Room Air Room Air Room Air Blood Pressure (90/60-120/80) 133/76 H 150/74 H 139/73 H Blood Pressure Mean 95 99 95 Source Monitor Monitor Monitor Position Sitting Sitting Semi-Fowlers Blood Pressure Location Right Arm Left Arm Left Arm History Since Last Visit- (Skip if this is Patient's initial visit) Have you changed medications since your No No No last visit? Any new allergies or adverse reactions No No No Had a fall/change in ADL's that may No No No increase risk of falls Signs or symptoms of abuse and/or No No No neglect since last visit Have you been in the hospital since your No No No last visit? Has dressing in place as prescribed Yes Yes Yes Has compression in place as prescribed N/A No N/A Has offloadiing in place as prescribed N/A N/A N/A Experienced any changes in pain level or No No No management Left Footwear Regular Shoe Regular Shoe Regular Shoe Right Footwear Regular Shoe Regular Shoe Regular Shoe Pain Scale: 0-10 Numeric Is Patient Pain Free? Yes Yes Yes 10/28/24 11/04/24 14:52 14:24 - Today's Visit Information Type of service Follow-up Visit Follow-up Visit (Physician/CONCRETE LABORER (Physician/CONCRETE LABORER ) ) Arrival Mode Ambulatory Ambulatory Transfer Assistance Patient Identification Verified (Name & Yes Yes ) Patient Requires Transmission-Based Precautions Vital Signs Temperature (97.8 F-99.1 F) 97.9 F 98.1 F Temperature Source Temporal Temporal Pulse Rate (60-100) 69 92 Pulse Location Monitor Monitor Respiratory Rate (12-18) 18 16 Respiratory rate source Observation Observation Oxygen Delivery Method Room Air Room Air Blood Pressure (90/60-120/80) 150/88 H 127/99 H Blood Pressure Mean 108 108 Source Monitor Position Sitting Blood Pressure Location Left Arm History Since Last Visit- (Skip if this is Patient's initial visit) Have you changed medications since your No No last visit? Any new allergies or adverse reactions No No Had a fall/change in ADL's that may No No increase risk of falls Signs or symptoms of abuse and/or No No neglect since last visit Have you been in the hospital since your No No last visit? Has dressing in place as prescribed Yes Yes Has compression in place as prescribed Yes N/A Has offloadiing in place as prescribed N/A N/A Experienced any changes in pain level or No No management Left Footwear Regular Shoe Regular Shoe Right Footwear Regular Shoe Regular Shoe Pain Scale: 0-10 Numeric Is Patient Pain Free? Yes Yes - Nurse 1 - General Ulcer Measurement Start: 10/07/24 14:42 Freq: Status: Active Protocol: Activity Type Activity Date Activity User E-sign Co-sign Detail Recorded Client Recorded Date Recorded By Document 10/07/24 14:42 KW [id number] 10/07/24 14:50 KW Document 10/14/24 14:48 [facility] [id number] 10/14/24 14:51 [facility] Document 10/21/24 14:33 KW [id number] 10/21/24 14:39 Document 10/28/24 14:52 [id number] 10/28/24 14:55 KW Document 11/04/24 14:24 [id number] 11/04/24 14:28 KW 10/07/24 10/14/24 10/21/24 14:42 14:48 14:33 Wound Center Nurse 1 #4 Rt med le -Combined with other wound No -Current Size (cm) - Length 2.5 2.5 3 -Current Size (cm) - Width 2 2 2.5 -Current Size (cm) - Depth 0.1 0.1 0.1 -Total Square Cm 5.0 5.0 7.5 -Date of Last Picture (Recall this 10/07/24 10/14/24 10/21/24 field) -Photo Taken Yes -Epithelialization Small 1-33% -Tunneling No -Undermining/Tunneling No -Circular Undermining No -Exudate Amt Medium Medium Medium -Exudate Type Serosanguineous Serosanguineous Sanguineous -Wound Margin Distinct, Flat & Intact Distinct, Outline Outline Attached Attached -Granulation Amt Large (67-100%) Small (1-33%) Large (67-100%) -Granulation Quality Foosland,Red Foosland Foosland,Red -Slough/Fibrin Yes -Necrosis Amt Small (1-33%) Large (67-100%) -Necrotic Tissue Type Adherent Slough Adherent Slough -Texture (Joyce-wound Skin Appearance) Assessed Assessed, Assessed Scarring -Moisture (Joyce-wound Skin Appearance) Assessed Assessed Assessed -Color (Joyce-wound Skin Appearance) Assessed Assessed Assessed, Ecchymosis -Temperature (Joyce-wound Skin No Abnormality No Abnormality No Abnormality Appearance) (Pt Warm) (Pt Warm) (Pt Warm) -Tenderness on Palpation (Joyce-wound No No No Skin Appearance) -Ulcer Cleansing Soap and Water Rinsed/ Rinsed/ Irrigated with Irrigated with Saline Saline -Foul Odor after Cleansing No No No -Anesthetic Used 5% Lidocaine 5% Lidocaine 5% Lidocaine Gel Gel Gel 10/28/24 11/04/24 14:52 14:24 Wound Center Nurse 1 #4 Rt med le -Combined with other wound -Current Size (cm) - Length 3 3.5 -Current Size (cm) - Width 3.5 3.7 -Current Size (cm) - Depth 0.1 0.1 -Total Square Cm 10.5 12.95 -Date of Last Picture (Recall this 10/28/24 11/04/24 field) -Photo Taken -Epithelialization -Tunneling -Undermining/Tunneling -Circular Undermining -Exudate Amt Medium Large -Exudate Type Serosanguineous Serosanguineous -Wound Margin Distinct, Distinct, Outline Outline Attached Attached -Granulation Amt Large (67-100%) Large (67-100%) -Granulation Quality Red [place],Red -Slough/Fibrin -Necrosis Amt -Necrotic Tissue Type -Texture (Joyce-wound Skin Appearance) Assessed Assessed -Moisture (Joyce-wound Skin Appearance) Assessed Assessed, Maceration -Color (Joyce-wound Skin Appearance) Assessed Assessed -Temperature (Joyce-wound Skin No Abnormality No Abnormality Appearance) (Pt Warm) (Pt Warm) -Tenderness on Palpation (Joyce-wound No No Skin Appearance) -Ulcer Cleansing Rinsed/ Soap and Water Irrigated with Saline -Foul Odor after Cleansing No No -Anesthetic Used 5% Lidocaine 5% Lidocaine Gel Gel WC - Nurse 2 - General Ulcer CM Notes Start: 10/07/24 14:42 Freq: Status: Active Protocol: Activity Type Activity Date Activity User E-sign Co-sign Detail Recorded Client Recorded Date Recorded By Document 10/07/24 15:01 DS [id number] 10/07/24 15:05 DS Document 10/14/24 15:25 DS [id number] 10/14/24 15:26 DS Edit Result 10/14/24 15:25 DS (1) [id number] 10/14/24 15:29 DS Document 10/21/24 14:55 DS [id number] 10/21/24 14:58 DS Document 10/28/24 15:26 DS [id number] 10/28/24 15:33 DS Document 11/04/24 14:50 DS [id number] 11/04/24 14:53 DS (1) #4 Rt med le - Post Debridement (cm) - Length => 2.5 - Post Debridement (cm) - Width => 2.0 - Post Debridement (cm) - Depth => 0.1 - Total Square (Post) (cm) => 5.00 - Area of Debridement (cm) - Length => 2.5 - Area of Debridement (cm) - Width => 2.0 - Total Square (Area) (cm) => 5.00 10/07/24 10/14/24 10/21/24 15: 15:25 14:55 Wound Center Nurse 2 #4 Rt med le -Time 15: 15: 14:55 -Correct Patient Yes Yes Yes -Correct Side, Site, Position Yes Yes Yes -Correct Procedure Yes Yes Yes -Procedure Performed Yes Yes Yes -Type of Procedure Debridement Debridement Debridement -Clinical Debridement Subcutaneous Subcutaneous Subcutaneous -Tissue Removed Subcutaneous Subcutaneous Subcutaneous -Post Debridement (cm) - Length 2.6 2.5 3.0 -Post Debridement (cm) - Width 2.6 2.0 2.7 -Post Debridement (cm) - Depth 0.1 0.1 0.1 -Total Square (Post) (cm) 6.76 5.00 8.10 -Area of Debridement (cm) - Length 2.6 2.5 3.0 -Area of Debridement (cm) - Width 2.6 2.0 2.7 -Total Square (Area) (cm) 6.76 5.00 8.10 -Tunneling No No No -Undermining/Tunneling No No No -Circular Undermining No No No -Wound/Ulcer Outcome Not Healed Not Healed Not Healed -Ulcer Cleansing gauze gauze -Foul Odor after Cleansing No No No -Bioengineered Tissue No No No -Bleeding Controlled with Pressure Pressure Pressure -Treatment Response Procedure Procedure Procedure Tolerated Well Tolerated Well Tolerated Well -Debridement - Subq, 1st 20sq cm Yes Yes Yes Pain Scale: 0-10 Numeric Is Patient Pain Free? No No Yes right leg -Description Sharp Sharp -Intensity 6 4 -Duration (hours) Chronic Chronic -Pain Behavior Guarding, Guarding, Irritability Irritability -Pain Aggravating Factors Debridement Debridement -Alleviating Factors/Interventions Emotional Emotional Support Support -Comments cetecaine spray 10/28/24 11/04/24 15:26 14:50 Wound Center Nurse 2 #4 Rt med le -Time 15: 14:50 -Correct Patient Yes Yes -Correct Side, Site, Position Yes Yes -Correct Procedure Yes Yes -Procedure Performed Yes Yes -Type of Procedure Debridement Debridement -Clinical Debridement Subcutaneous Subcutaneous -Tissue Removed Subcutaneous Subcutaneous -Post Debridement (cm) - Length 3.0 3.9 -Post Debridement (cm) - Width 2.9 3.7 -Post Debridement (cm) - Depth 0.1 0.1 -Total Square (Post) (cm) 8.70 14.43 -Area of Debridement (cm) - Length 3.0 3.9 -Area of Debridement (cm) - Width 2.9 3.7 -Total Square (Area) (cm) 8.70 14.43 -Tunneling No No -Undermining/Tunneling No No -Circular Undermining No No -Wound/Ulcer Outcome Not Healed Not Healed -Ulcer Cleansing GAUZE -Foul Odor after Cleansing No No -Bioengineered Tissue No No -Bleeding Controlled with Pressure Pressure -Treatment Response Procedure Procedure Tolerated Well Tolerated Well -Debridement - Subq, 1st 20sq cm Yes Yes Pain Scale: 0-10 Numeric Is Patient Pain Free? No No right leg -Description Sharp,Throbbing Sharp,Throbbing -Intensity 6 6 -Duration (hours) Chronic -Pain Behavior Moaning, Guarding Guarding -Pain Aggravating Factors Debridement Debridement -Alleviating Factors/Interventions Distraction Distraction -Comments CETECAINE USED WC - Nurse 3 - General Ulcer D/C NN Start: 10/07/24 14:42 Freq: Status: Active Protocol: Activity Type Activity Date Activity User E-sign Co-sign Detail Recorded Client Recorded Date Recorded By Document 10/07/24 15:11 [employer] [id number] 10/07/24 15:13 [facility] Document 10/14/24 15:35 [facility] [id number] 10/14/24 15:35 [facility] Document 10/21/24 15:10 [facility] [id number] 10/21/24 15:11 [facility] Document 10/28/24 15:47 [id number] 10/28/24 15:48 Document 11/04/24 15:12 [employer] [id number] 11/04/24 15:12 [employer] 10/07/24 10/14/24 10/21/24 15:11 15:35 15:10 Wound Care Center Nurse 3 #4 Rt med le -Ulcer Cleansing Rinsed/ Rinsed/ Rinsed/ Irrigated with Irrigated with Irrigated with Saline Saline Saline -Foul Odor after Cleansing No No No -Primary Dressing Applied AMD Dressing Silicone Border AMD Dressing 4x4,Silicone Foam 4x4 4x4,Silicone Border Foam 4x4 Border Foam 4x4 -Other Dressing hydrogel hydrogel hydrogel -Primary Dressing Covered/Secured with Dry Gauze -Other Covering drsg per jf rn -AMD Dressing 4x4 1 1 -Aquacel Extra -Silicone Border Foam 4x4 1 1 1 RLE -Other pt will apply pt refused new pt has d tubis own when goes tubis. has some at home, states home at home will apply Treatment Response Procedure Procedure Tolerated Well Tolerated Well Pain Scale: 0-10 Numeric Is Patient Pain Free? Yes Yes Yes WC - Visit Discharge Discharge Condition Stable Stable Stable Ambulatory Status Ambulatory Ambulatory Ambulatory Transportation Private Auto Private Auto Private Auto Medication Reconcilliation completed & provided to patient/care provider Clinical Summary of Care Provided 10/28/24 11/04/24 15:47 15:12 Wound Care Center Nurse 3 #4 Rt med le -Ulcer Cleansing Rinsed/ Rinsed/ Irrigated with Irrigated with Saline Saline -Foul Odor after Cleansing No -Primary Dressing Applied AMD Dressing Aquacel Extra 4x4,Silicone Border Foam 4x4 -Other Dressing hydrogel SAMPLE SUPERABSORBER -Primary Dressing Covered/Secured with Dry Gauze & Roll Gauze, Secured with Tape -Other Covering -AMD Dressing 4x4 1 -Aquacel Extra 1 -Silicone Border Foam 4x4 1 RLE -Other PT HAS AMPLE SUPPLY AT HOME, PER HER Treatment Response Procedure Tolerated Well Pain Scale: 0-10 Numeric Is Patient Pain Free? Yes Yes WC - Visit Discharge Discharge Condition Stable Stable Ambulatory Status Ambulatory Ambulatory Transportation Private Auto Private Auto Medication Reconcilliation completed & No provided to patient/care provider Clinical Summary of Care Provided Yes Additional Wound Anesthesia Used: Cetacaine Tissue Removed: Devitalized traumatic skin flap Charges/Coding Procedures Integumentary [id number]: [id number] [place] subq tissue 20 sq cm/< Assessment/Plan Assessment/Plan (1) Non-pressure chronic ulcer of right calf with fat layer exposed: CODE(S): L97.212 - Non-pressure chronic ulcer of right calf with fat layer exposed (2) Non-pressure chronic ulcer of right lower leg with fat layer exposed: CODE(S): L97.912 - Non-pressure chronic ulcer of unspecified part of right lower leg with fat layer exposed (3) Traumatic open wound of right lower leg: CODE(S): S81.801A - Unspecified open wound, right lower leg, initial encounter QUALIFIERS: Encounter type: subsequent encounter Qualified Code(s): S81.801D - Unspecified open wound, right lower leg, subsequent encounter (4) Lumbar scoliosis: CODE(S): M41.9 - Scoliosis, unspecified QUALIFIERS: Scoliosis type: other secondary scoliosis Qualified Code(s): M41.56 - Other secondary scoliosis, lumbar region (5) Low back pain: CODE(S): M54.50 - Low back pain, unspecified (6) DDD (degenerative disc disease), lumbosacral: CODE(S): M51.37 - Other intervertebral disc degeneration, lumbosacral region (7) Hypothyroidism (acquired): CODE(S): E03.9 - Hypothyroidism, unspecified (8) Cataracts, bilateral: CODE(S): H26.9 - Unspecified cataract (9) History of tonsillectomy: CODE(S): Z90.89 - Acquired absence of other organs (10) History of IBS: CODE(S): Z87.19 - Personal history of other diseases of the digestive system (11) Former smoker: CODE(S): Z87.891 - Personal history of nicotine dependence (12) History of lumbar spinal fusion: CODE(S): Z98.1 - Arthrodesis status (13) History of hysterectomy: CODE(S): Z90.710 - Acquired absence of both cervix and uterus (14) History of cervical discectomy: CODE(S): Z98.890 - Other specified postprocedural states (15) History of total hip replacement: CODE(S): Z96.649 - Presence of unspecified artificial hip joint (16) Status post spinal disc removal: CODE(S): Z98.890 - Other specified postprocedural states PLAN: Plan This is a 74-year-old female who presented with traumatic wounds in both lower extremities. Although the patient does not relate significant swelling in her lower extremities, measures to prevent such swelling have been thoroughly discussed. The patient has been encouraged to elevate her lower extremities as much as possible. She has been advised to refrain from prolonged, idle sitting. She is to continue wearing her Tubigrips bilaterally on a daily basis. Activity has been encouraged. The patient has been encouraged to optimize her nutritional intake. The patient attests to the fact that her appetite is good, and she is consuming a well-balanced diet. The traumatic wounds in the left lower extremity remain completely healed and epithelialized. A traumatic wound persists on the right pretibial surface. It appears slightly larger this week, perhaps due to maceration from the wound drainage. Therefore, we are to transition to the use of Aquacel Extra, which will be applied topically on a daily basis. The patient has been instructed in the appropriate means of application. In addition, we are to implement the use of a superabsorber dressing to absorb wound drainage. A noninvasive lower extremity arterial study was performed on June 13, 2024, the results of which revealed no evidence of significant arterial occlusive disease in the lower extremities. It has been felt that the patient will benefit from the use of a cellular tissue product, such as EpiFix. Insurance pre-authorization has been obtained. Because the patient's wound is somewhat larger this visit, we are to modify her daily dressings, and will temporarily delay the use of the EpiFix allograft. The patient is to return in 1 week for reevaluation. Total time: 25 minutes
--- NOTE | 2024-11-05 13:21 | WC ---
PHOTO-RIGHT MED LEG 11/04/24
== END 2024-11-06 23:59 | disposition home or self-care (01) ==
LOC: WC 14:30
PROVIDERS: PCP Family Medicine Geriatric Medicine; Referring Provider Family Medicine Geriatric Medicine; Visit Provider Surgery
DX: L97.212 Non-pressure chronic ulcer of right calf with fat layer exposed (principal); M41.86 Other forms of scoliosis, lumbar region; Z90.710 Acquired absence of both cervix and uterus; M51.370 Other intervertebral disc degeneration, lumbosacral region with discogenic back pain only; E03.9 Hypothyroidism, unspecified; Z98.1 Arthrodesis status; H26.9 Unspecified cataract; Z87.891 Personal history of nicotine dependence; S81.801D Unspecified open wound, right lower leg, subsequent encounter; Z87.19 Personal history of other diseases of the digestive system; Z96.649 Presence of unspecified artificial hip joint; Z90.89 Acquired absence of other organs
CPT/HCPCS: 11042

== ENCOUNTER 2024-12-02 13:30 | Outpatient (RCR) | payer MEDICARE, OTHER, SELFPAY ==
[2024-11-11 14:33] VITALS: BP 131/65; PULSE 65; RESP 18; TEMP 36.3
--- NOTE | 2024-11-12 09:10 | WC ---
PHOTO: RT MED LEG 11.11.24
--- NOTE | 2024-11-12 09:10 | WC ---
PHOTO: RT MED LEG 11.11.24
--- NOTE | 2024-11-13 14:29 | HP.PCM_ITS ---
History of Present Illness Date of Service: 11/11/24 Chief Complaint: Right lower extremity traumatic wound History of Wound: This is a 74-year-old female who has presented repeatedly with traumatic wounds to both lower extremities. A wound on the right pretibial surface persists, though all other lower extremity wounds have healed. The patient is mobile and active. She denies swelling in her legs. She sleeps on a flat surface at night. She denies a history of thrombophlebitis. The patient denies a history of congestive heart failure, myocardial infarction, diabetes mellitus, cerebrovascular accident, hypertension, renal disease, and pulmonary disease. She has a history of hypothyroidism. A limited venous duplex examination was performed on October 26, 2022, examining only the right lower extremity, and revealing no evidence of thrombophlebitis. Valvular competence was not fully evaluated. [facility] Medical History Non-pressure chronic ulcer of right calf with fat layer exposed Non-pressure chronic ulcer of right lower leg with fat layer exposed Traumatic open wound of right lower leg Traumatic open wound of left lower leg Non-pressure chronic ulcer of left lower leg with fat layer exposed Non-pressure chronic ulcer of right lower leg with fat layer exposed Traumatic open wound of right lower leg with delayed healing Traumatic open wound of left lower leg with delayed healing Wears glasses Anxiety Alcohol use History of steroid therapy Easy bruising Back pain Injury of back Migraine headache Syncope History of IBS Former smoker Leg cramps History of edema History of stress test Cataracts, bilateral Arthritis Anemia Vitamin D deficiency, unspecified Hypothyroidism Home Medications ?Medication ?Instructions ?Recorded ?Last Taken ?Type lidocaine 5 % topical patch 2 patch topical DAILY 04/10 08/24 1 Day Ago History ~09/21/17 meloxicam 15 mg tablet 15 mg PO QDAY 05/03/1709/22 History doxepin 10 mg capsule 10 mg PO QHS 12/16/19 Unknow n History folic acid 400 mcg tablet 0.4 mg PO DAILY@0800 0 Unknown History linaclotide 145 mcg capsule 145 mcg PO DAILY 12/16/19 Unknown History estradiol 0.1 mg/24 hr semiweekly 2 patch transdermal MOTH 03/15/20 Unknown History transdermal patch (Bessie) acetaminophen 500 mg tablet 1,000 mg PO BID 09/30/22 U nknown History vitamin [id number] B1 100 mg-1 1 ml IM .QMO 01/06/22 Unknown History mg/mL intramuscular solution levothyroxine 50 mcg tablet 50 mcg PO DAILY 03/18/24 U nknown History gabapentin 100 mg capsule 100 mg PO BID 05/07/24 Unkno wn History loratadine 10 mg tablet 10 mg PO .prn 05/07/24 Unkno wn History sulfamethoxazole 800 1 tab PO Q12H #14 tabs 05/27 Unknown Rx mg-trimethoprim 160 mg tablet (Bactrim DS) cephalexin 500 mg capsule 500 mg PO 4X/DAY 07/08/24 Un known History doxycycline hyclate 100 mg tablet 100 mg PO BID Unknown History sulfamethoxazole 800 1 tab PO Q12H #14 tabs 07/08 Unknown Rx mg-trimethoprim 160 mg tablet (Bactrim DS) sulfamethoxazole 800 1 tab PO Q12H wound infectio n #14 09/10/24 Unknown Rx mg-trimethoprim 160 mg tablet tabs (Bactrim DS) Allergy/AdvReac Type Severity Reaction Status Date / Time No Known Allergies Allergy Verified 05/07/24 11:09 Family History Mother Rheumatoid arthritis Father Pancreatic cancer Cancer Grandfather Myocardial infarction Grandmother Thyroid disorder Surgical History Status post spinal disc removal History of tonsillectomy History of lumbar spinal fusion History of total hip replacement History of hysterectomy History of cervical discectomy Social History household members: spouse Smoking Status: Never smoker alcohol intake: current alcohol intake frequency: a few times a week Alcohol type: wine substance use type: does not use what type of physical activity do you participate in: other details: physical therapy frequency: 1-2 times per week Physical Exam Const alert, oriented x3, no apparent distress, average body habitus and no limitations Constitutional Narrative: The patient's BMI is 19.7. She is of thin body habitus. General Appearance: cooperative, comfortable, well kempt and well developed Orientation / Consciousness: awake, oriented to person, oriented to place and oriented to time Exam Limitations: no limitations HEENT normocephalic, head/scalp atraumatic and hearing grossly normal bilaterally Head and Scalp: normal to inspection, normocephalic and atraumatic Face and Sinus: normal facial exam Nose: external nose normal External Ear: external ears normal Eyes EOMs intact bilaterally General Eye: normal appearance of both eyes Neck full ROM Resp normal respiratory effort, normal air movement, no retractions and no use of accessory muscles Effort and Inspection: able to speak in complete sentences Extremity no clubbing, cyanosis or edema and no calf tenderness General Extremity: normal exam except as noted Skin Wound Narrative: The patient's lower extremities appear warm and well-perfused. Pedal pulses are easily palpable bilaterally. There is no significant swelling or edema in the patient's lower extremities. The wounds on the patient's left lower extremity remain completely healed and epithelialized. The traumatic wound on the patient's right pretibial surface persists. It is full-thickness in nature, extending through all layers of the dermis and into the subcutaneous tissues. Wound margins are well beveled. The base of the wound demonstrates a small amount of slough and bioburden, though with a predominance of pink, healthy granulation tissue. There is evidence of epithelialization. There is no sign of infection or cellulitis. Dimensions are documented elsewhere. The wound appears to be slightly smaller. Hair: normal Neuro oriented x3, CN's II-XII intact bilaterally, moves all extremities, no focal motor deficits and no sensory deficits noted Sensorium / Orientation: awake, alert, oriented to person, oriented to place and oriented to time Speech: speech normal Psych Appearance: grossly normal and appropriate Attitude: calm Activity / Motor Behavior: appropriate eye contact Speech: normal speech Mood & Affect: euthymic mood Thought Process: normal thought process Thought Content: normal thought content Attention / Concentration: attention grossly intact Debridement Note Debridement Note Wound debrided: Traumatic right pretibial wound Laterality: Right Type of Debridement: Excisional debridement Anesthesia Used: 5% Lidocaine Gel and Cetacaine Depth: Down to and including healthy tissue and in the subcutaneous layer Percentage of wound debrided: 100 Instrument Used: 5mm curette Tissue Removed: Bioburden and slough Severity: Fat Layer Exposed Amount of bleeding with debridement: Mild Bleeding Controlled with: Compression and gauze Patient tolerated procedure: Patient tolerated procedure well Post-Debridement Measurements and Additional Note: Post-Debridement Measurements/Treatment WC - Nurse 1 - General Ulcer Assessment Start: 11/11/24 14:32 Freq: Status: Active Protocol: QUIANA Activity Type Activity Date Activity User E-sign Co-sign Detail Recorded Client Recorded Date Recorded By Document 11/11/24 14:33 KW [id number] 11/11/24 14:41 11/11/24 14:33 - Today's Visit Information Type of service Follow-up Visit (Physician/CONTINUING EDUCATION INSTRUCTOR ) Arrival Mode Ambulatory Patient Identification Verified (Name & Yes ) Vital Signs Temperature (97.8 F-99.1 F) 97.4 F L Temperature Source Temporal Pulse Rate (60-100) 65 Pulse Location Monitor Respiratory Rate (12-18) 18 Respiratory rate source Observation Oxygen Delivery Method Room Air Blood Pressure (90/60-120/80) 131/65 H Blood Pressure Mean 87 Source Monitor Position Sitting Blood Pressure Location Left Arm History Since Last Visit- (Skip if this is Patient's initial visit) Have you changed medications since your No last visit? Any new allergies or adverse reactions No Had a fall/change in ADL's that may No increase risk of falls Signs or symptoms of abuse and/or No neglect since last visit Have you been in the hospital since your No last visit? Has dressing in place as prescribed Yes Has compression in place as prescribed Yes Has offloadiing in place as prescribed N/A Experienced any changes in pain level or No management Left Footwear Regular Shoe Right Footwear Regular Shoe Pain Scale: 0-10 Numeric Is Patient Pain Free? Yes - Nurse 1 - General Ulcer Measurement Start: 11/11/24 14:32 Freq: Status: Active Protocol: Activity Type Activity Date Activity User E-sign Co-sign Detail Recorded Client Recorded Date Recorded By Document 11/11/24 14:33 KW [id number] 11/11/24 14:41 11/11/24 14:33 Wound Center Nurse 1 #4 Rt med le -Current Size (cm) - Length 3 -Current Size (cm) - Width 1.5 -Current Size (cm) - Depth 0.1 -Total Square Cm 4.5 -Date of Last Picture (Recall this 11/11/24 field) -Exudate Amt Medium -Exudate Type Serosanguineous -Wound Margin Distinct, Outline Attached -Granulation Amt Large (67-100%) -Granulation Quality [place] -Texture (Joyce-wound Skin Appearance) Assessed -Moisture (Joyce-wound Skin Appearance) Assessed -Color (Joyce-wound Skin Appearance) Assessed -Temperature (Joyce-wound Skin No Abnormality Appearance) (Pt Warm) -Tenderness on Palpation (Joyce-wound No Skin Appearance) -Ulcer Cleansing Rinsed/ Irrigated with Saline -Foul Odor after Cleansing No -Anesthetic Used 5% Lidocaine Gel WC - Nurse 2 - General Ulcer CM Notes Start: 11/11/24 14:32 Freq: Status: Active Protocol: Activity Type Activity Date Activity User E-sign Co-sign Detail Recorded Client Recorded Date Recorded By Document 11/11/24 15:09 DS [id number] 11/11/24 15:12 DS 11/11/24 15:09 Wound Center Nurse 2 -Time 15:09 -Correct Patient Yes -Correct Side, Site, Position Yes -Correct Procedure Yes -Procedure Performed Yes -Type of Procedure Debridement -Clinical Debridement Subcutaneous -Tissue Removed Subcutaneous -Post Debridement (cm) - Length 3.0 -Post Debridement (cm) - Width 2.6 -Post Debridement (cm) - Depth 0.1 -Total Square (Post) (cm) 7.80 -Area of Debridement (cm) - Length 3.0 -Area of Debridement (cm) - Width 2.6 -Total Square (Area) (cm) 7.80 -Tunneling No -Undermining/Tunneling No -Circular Undermining No -Wound/Ulcer Outcome Not Healed -Ulcer Cleansing gauze -Foul Odor after Cleansing No -Bioengineered Tissue No -Bleeding Controlled with Pressure -Treatment Response Procedure Tolerated Well -Debridement - Subq, 1st 20sq cm Yes Pain Scale: 0-10 Numeric Is Patient Pain Free? Yes - Nurse 3 - General Ulcer D/C NN Start: 11/11/24 14:32 Freq: Status: Active Protocol: Activity Type Activity Date Activity User E-sign Co-sign Detail Recorded Client Recorded Date Recorded By Document 11/11/24 15:23 KW [id number] 11/11/24 15:24 KW 11/11/24 15:23 Wound Care Center Nurse 3 #4 Rt med le -Primary Dressing Applied AMD Dressing 4x4,Silicone Border Foam 6x6 -Other Dressing hydrogel then amd pad -AMD Dressing 4x4 1 -Silicone Border Foam 6x6 1 Pain Scale: 0-10 Numeric Is Patient Pain Free? Yes WC - Visit Discharge Discharge Condition Stable Ambulatory Status Walker Transportation Private Auto Medication Reconcilliation completed & No provided to patient/care provider Clinical Summary of Care Provided Yes Additional Wound Anesthesia Used: Cetacaine Tissue Removed: Devitalized traumatic skin flap Charges/Coding Procedures Integumentary [id number]: [id number] [place] subq tissue 20 sq cm/< Assessment/Plan Assessment/Plan (1) Non-pressure chronic ulcer of right calf with fat layer exposed: CODE(S): L97.212 - Non-pressure chronic ulcer of right calf with fat layer exposed (2) Non-pressure chronic ulcer of right lower leg with fat layer exposed: CODE(S): L97.912 - Non-pressure chronic ulcer of unspecified part of right lower leg with fat layer exposed (3) Traumatic open wound of right lower leg: CODE(S): S81.801A - Unspecified open wound, right lower leg, initial encounter QUALIFIERS: Encounter type: subsequent encounter Qualified Code(s): S81.801D - Unspecified open wound, right lower leg, subsequent encounter (4) Lumbar scoliosis: CODE(S): M41.9 - Scoliosis, unspecified QUALIFIERS: Scoliosis type: other secondary scoliosis Qualified Code(s): M41.56 - Other secondary scoliosis, lumbar region (5) Low back pain: CODE(S): M54.50 - Low back pain, unspecified (6) DDD (degenerative disc disease), lumbosacral: CODE(S): M51.37 - Other intervertebral disc degeneration, lumbosacral region (7) Hypothyroidism (acquired): CODE(S): E03.9 - Hypothyroidism, unspecified (8) Cataracts, bilateral: CODE(S): H26.9 - Unspecified cataract (9) History of tonsillectomy: CODE(S): Z90.89 - Acquired absence of other organs (10) History of IBS: CODE(S): Z87.19 - Personal history of other diseases of the digestive system (11) Former smoker: CODE(S): Z87.891 - Personal history of nicotine dependence (12) History of lumbar spinal fusion: CODE(S): Z98.1 - Arthrodesis status (13) History of hysterectomy: CODE(S): Z90.710 - Acquired absence of both cervix and uterus (14) History of cervical discectomy: CODE(S): Z98.890 - Other specified postprocedural states (15) History of total hip replacement: CODE(S): Z96.649 - Presence of unspecified artificial hip joint (16) Status post spinal disc removal: CODE(S): Z98.890 - Other specified postprocedural states PLAN: Plan This is a 74-year-old female who presented with traumatic wounds in both lower extremities. Although the patient does not relate significant swelling in her lower extremities, measures to prevent such swelling have been thoroughly discussed. The patient has been encouraged to elevate her lower extremities as much as possible. She has been advised to refrain from prolonged, idle sitting. She is to continue wearing her Tubigrips bilaterally on a daily basis. Activity has been encouraged. The patient has been encouraged to optimize her nutritional intake. The patient attests to the fact that her appetite is good, and she is consuming a well-balanced diet. The traumatic wounds in the left lower extremity remain completely healed and epithelialized. A traumatic wound persists on the right pretibial surface. It appears slightly smaller this week. We are to transition to the use of collagen hydrogel and a Hunter AMD foam with PHMB. The dressing is to be changed on a daily basis. The patient has been instructed in the appropriate means of application. In addition, we are to continue the use of a superabsorber dressing to absorb wound drainage. A noninvasive lower extremity arterial study was performed on June 13, 2024, the results of which revealed no evidence of significant arterial occlusive disease in the lower extremities. It has been felt that the patient will benefit from the use of a cellular tissue product, such as EpiFix. Insurance pre- authorization has been obtained. EpiFix applications may commence in the near future. The patient is to return in 1 week for reevaluation. Total time: 24 minutes
[2024-11-18 10:15] VITALS: BP 109/71; PULSE 72; RESP 18; TEMP 36.6
--- NOTE | 2024-11-18 12:12 | WC ---
PHOTO-RIGHT WEEKS 11/18/24
--- NOTE | 2024-11-18 12:12 | WC ---
PHOTO-RIGHT WEEKS 11/18/24
--- NOTE | 2024-11-19 13:32 | PCM.WC.HP ---
History of Present Illness Date of Service: 11/18/24 Chief Complaint: Right lower extremity traumatic wound History of Wound: This is a 74-year-old female who has presented repeatedly with traumatic wounds to both lower extremities. A wound on the right pretibial surface persists, though all other lower extremity wounds have healed. The patient is mobile and active. She denies swelling in her legs. She sleeps on a flat surface at night. She denies a history of thrombophlebitis. The patient denies a history of congestive heart failure, myocardial infarction, diabetes mellitus, cerebrovascular accident, hypertension, renal disease, and pulmonary disease. She has a history of hypothyroidism. A limited venous duplex examination was performed on October 26, 2022, examining only the right lower extremity, and revealing no evidence of thrombophlebitis. Valvular competence was not fully evaluated. [facility] Medical History Non-pressure chronic ulcer of right calf with fat layer exposed Non-pressure chronic ulcer of right lower leg with fat layer exposed Traumatic open wound of right lower leg Traumatic open wound of left lower leg Non-pressure chronic ulcer of left lower leg with fat layer exposed Non-pressure chronic ulcer of right lower leg with fat layer exposed Traumatic open wound of right lower leg with delayed healing Traumatic open wound of left lower leg with delayed healing Wears glasses Anxiety Alcohol use History of steroid therapy Easy bruising Back pain Injury of back Migraine headache Syncope History of IBS Former smoker Leg cramps History of edema History of stress test Cataracts, bilateral Arthritis Anemia Vitamin D deficiency, unspecified Hypothyroidism Home Medications ?Medication ?Instructions ?Recorded ?Last Taken ?Type lidocaine 5 % topical patch 2 patch topical DAILY 05/03/17 1 Day Ago History ~09/21/17 meloxicam 15 mg tablet 15 mg PO QDAY 05/03/17 09/22/17 History doxepin 10 mg capsule 10 mg PO QHS 12/16/19 Unknown History folic acid 400 mcg tablet 0.4 mg PO DAILY@0800 12/16/19 Unknown History linaclotide 145 mcg capsule 145 mcg PO DAILY 12/16/19 Unknown History estradiol 0.1 mg/24 hr semiweekly 2 patch transdermal MOTH 03/15/20 Unknown History transdermal patch (Bessie) acetaminophen 500 mg tablet 1,000 mg PO BID 01/06/22 Unknown History vitamin [id number] B1 100 mg-1 1 ml IM .QMO 01/06/22 Unknown History mg/mL intramuscular solution levothyroxine 50 mcg tablet 50 mcg PO DAILY 03/18/24 Unknown History gabapentin 100 mg capsule 100 mg PO BID 05/07/24 Unknown History loratadine 10 mg tablet 10 mg PO .prn 05/07/24 Unknown History sulfamethoxazole 800 1 tab PO Q12H #14 tabs 05/27/24 Unknown Rx mg-trimethoprim 160 mg tablet (Bactrim DS) cephalexin 500 mg capsule 500 mg PO 4X/DAY 07/08/24 Unknown History doxycycline hyclate 100 mg tablet 100 mg PO BID 07/08/24 Unknown History sulfamethoxazole 800 1 tab PO Q12H #14 tabs 07/08/24 Unknown Rx mg-trimethoprim 160 mg tablet (Bactrim DS) sulfamethoxazole 800 1 tab PO Q12H wound infection #14 09/10/24 Unknown Rx mg-trimethoprim 160 mg tablet tabs (Bactrim DS) Allergy/AdvReac Type Severity Reaction Status Date / Time No Known Allergies Allergy Verified 05/07/24 11:09 Family History Mother Rheumatoid arthritis Father Pancreatic cancer Cancer Grandfather Myocardial infarction Grandmother Thyroid disorder Surgical History Status post spinal disc removal History of tonsillectomy History of lumbar spinal fusion History of total hip replacement History of hysterectomy History of cervical discectomy Social History household members: spouse Smoking Status: Never smoker alcohol intake: current alcohol intake frequency: a few times a week Alcohol type: wine substance use type: does not use what type of physical activity do you participate in: other details: physical therapy frequency: 1-2 times per week Physical Exam Const alert, oriented x3, no apparent distress, average body habitus and no limitations Constitutional Narrative: The patient's BMI is 19.7. She is of thin body habitus. General Appearance: cooperative, comfortable, well kempt and well developed Orientation / Consciousness: awake, oriented to person, oriented to place and oriented to time Exam Limitations: no limitations HEENT normocephalic, head/scalp atraumatic and hearing grossly normal bilaterally Head and Scalp: normal to inspection, normocephalic and atraumatic Face and Sinus: normal facial exam Nose: external nose normal External Ear: external ears normal Eyes EOMs intact bilaterally General Eye: normal appearance of both eyes Neck full ROM Resp normal respiratory effort, normal air movement, no retractions and no use of accessory muscles Effort and Inspection: able to speak in complete sentences Extremity no clubbing, cyanosis or edema and no calf tenderness General Extremity: normal exam except as noted Skin Wound Narrative: The patient's lower extremities appear warm and well-perfused. Pedal pulses are easily palpable bilaterally. There is no significant swelling or edema in the patient's lower extremities. The wounds on the patient's left lower extremity remain completely healed and epithelialized. The traumatic wound on the patient's right pretibial surface persists. It is full-thickness in nature, extending through all layers of the dermis and into the subcutaneous tissues. Wound margins are well beveled. The base of the wound demonstrates a small amount of bioburden, though with a predominance of pink, healthy granulation tissue. There is evidence of epithelialization. There is no sign of infection or cellulitis. Dimensions are documented elsewhere. Hair: normal Neuro oriented x3, CN's II-XII intact bilaterally, moves all extremities, no focal motor deficits and no sensory deficits noted Sensorium / Orientation: awake, alert, oriented to person, oriented to place and oriented to time Speech: speech normal Psych Appearance: grossly normal and appropriate Attitude: calm Activity / Motor Behavior: appropriate eye contact Speech: normal speech Mood & Affect: euthymic mood Thought Process: normal thought process Thought Content: normal thought content Attention / Concentration: attention grossly intact Debridement Note Debridement Note Wound debrided: Traumatic right pretibial wound Laterality: Right Type of Debridement: Excisional debridement Anesthesia Used: 5% Lidocaine Gel and Cetacaine Depth: Down to and including healthy tissue and in the subcutaneous layer Percentage of wound debrided: 100 Instrument Used: 5mm curette Tissue Removed: Bioburden Severity: Fat Layer Exposed Amount of bleeding with debridement: Mild Bleeding Controlled with: Compression and gauze Patient tolerated procedure: Patient tolerated procedure well Debridement Free Text: The excisional debridement was well-tolerated. Following the debridement, an EpiFix allograft was applied. Based upon the wound dimensions, a 4.0 cm x 4.5 cm fenestrated EpiFix graft was selected for application. The EpiFix allograft was removed from its sterile packaging. It was applied topically to the wound and the appropriate orientation. 100% of the allograft was utilized. Dermabond was used to anchor the allograft in place at its edges. Adaptic Touch was then placed over the allograft, and was secured using Steri-Strips. Collagen hydrogel was applied over the Adaptic Touch, and a dry sterile occlusive gauze dressing was applied. This represents application #1 of an EpiFix allograft at this site. Post-Debridement Measurements and Additional Note: Post-Debridement Measurements/Treatment - Nurse 1 - General Ulcer Assessment Start: 11/11/24 14:32 Freq: Status: Active Protocol: JOE.GREGORIOEXSelina Activity Type Activity Date Activity User E-sign Co-sign Detail Recorded Client Recorded Date Recorded By Document 11/11/24 14:33 KW [id number] 11/11/24 14:41 KW Document 11/18/24 10:15 KW [id number] 11/18/24 10:22 KW 11/11/24 11/18/24 14:33 10:15 - Today's Visit Information Type of service Follow-up Visit Follow-up Visit (Physician/INSPECTOR BALANCE WHEEL [employer]ION (Physician/INSPECTOR BALANCE WHEEL [employer]ION ) ) Arrival Mode Ambulatory Ambulatory Patient Identification Verified (Name & Yes Yes ) Vital Signs Temperature (97.8 F-99.1 F) 97.4 F L 97.9 F Temperature Source Temporal Temporal Pulse Rate (60-100) 65 72 Pulse Location Monitor Monitor Respiratory Rate (12-18) 18 18 Respiratory rate source Observation Observation Oxygen Delivery Method Room Air Room Air Blood Pressure (90/60-120/80) 131/65 H 109/71 Blood Pressure Mean 87 83 Source Monitor Monitor Position Sitting Semi-Fowlers Blood Pressure Location Left Arm Right Arm History Since Last Visit- (Skip if this is Patient's initial visit) Have you changed medications since your No No last visit? Any new allergies or adverse reactions No No Had a fall/change in ADL's that may No No increase risk of falls Signs or symptoms of abuse and/or No No neglect since last visit Have you been in the hospital since your No No last visit? Has dressing in place as prescribed Yes Yes Has compression in place as prescribed Yes Yes Has offloadiing in place as prescribed N/A N/A Experienced any changes in pain level or No No management Left Footwear Regular Shoe Regular Shoe Right Footwear Regular Shoe Regular Shoe Pain Scale: 0-10 Numeric Is Patient Pain Free? Yes Yes - Nurse 1 - General Ulcer Measurement Start: 11/11/24 14:32 Freq: Status: Active Protocol: Activity Type Activity Date Activity User E-sign Co-sign Detail Recorded Client Recorded Date Recorded By Document 11/11/24 14:33 KW [id number] 11/11/24 14:41 KW Document 11/18/24 10:15 KW [id number] 11/18/24 10:22 KW 11/11/24 11/18/24 14:33 10:15 Wound Center Nurse 1 #4 Rt med le -Current Size (cm) - Length 3 -Current Size (cm) - Width 1.5 -Current Size (cm) - Depth 0.1 -Total Square Cm 4.5 -Date of Last Picture (Recall this 11/11/24 field) -Exudate Amt Medium Medium -Exudate Type Serosanguineous Serosanguineous -Wound Margin Distinct, Distinct, Outline Outline Attached Attached -Granulation Amt Large (67-100%) Large (67-100%) -Granulation Quality Gate Red -Texture (Joyce-wound Skin Appearance) Assessed Assessed -Moisture (Joyce-wound Skin Appearance) Assessed Assessed -Color (Joyce-wound Skin Appearance) Assessed Assessed -Temperature (Joyce-wound Skin No Abnormality No Abnormality Appearance) (Pt Warm) (Pt Warm) -Tenderness on Palpation (Joyce-wound No No Skin Appearance) -Ulcer Cleansing Rinsed/ Soap and Water Irrigated with Saline -Foul Odor after Cleansing No No -Anesthetic Used 5% Lidocaine 5% Lidocaine Gel Gel - Nurse 2 - General Ulcer CM Notes Start: 11/11/24 14:32 Freq: Status: Active Protocol: Activity Type Activity Date Activity User E-sign Co-sign Detail Recorded Client Recorded Date Recorded By Document 11/11/24 15:09 DS [id number] 11/11/24 15:12 DS Document 11/18/24 10:38 JF [id number] 11/18/24 10:40 JF 11/11/24 11/18/24 15:09 10:38 Wound Center Nurse 2 #4 Rt med le -Time 15:09 10:38 -Correct Patient Yes Yes -Correct Side, Site, Position Yes Yes -Correct Procedure Yes Yes -Procedure Performed Yes Yes -Type of Procedure Debridement Debridement -Clinical Debridement Subcutaneous Subcutaneous -Tissue Removed Subcutaneous Subcutaneous -Post Debridement (cm) - Length 3.0 3.3 -Post Debridement (cm) - Width 2.6 3.0 -Post Debridement (cm) - Depth 0.1 0.1 -Total Square (Post) (cm) 7.80 9.90 -Area of Debridement (cm) - Length 3.0 3.3 -Area of Debridement (cm) - Width 2.6 3.0 -Total Square (Area) (cm) 7.80 9.90 -Tunneling No No -Undermining/Tunneling No No -Circular Undermining No No -Wound/Ulcer Outcome Not Healed Not Healed -Ulcer Cleansing gauze Rinsed/ Irrigated with Saline -Foul Odor after Cleansing No No -Bioengineered Tissue No Yes -Type of Bioengineered Tissue Epifix Mesh -Expiration Date 04/09/29 -Product Lot Number [id number] -Percent Used 100 -Lot number of Saline Used [id number] -Bleeding Controlled with Pressure Pressure -Treatment Response Procedure Procedure Tolerated Well Tolerated Well -Offloading No -Debridement - Subq, 1st 20sq cm Yes No -Apply Skin Sub - 1st 25 sq cm - Legs 1 -Epifix Mesh Application 1-4 (per sq 11 cm) Pain Scale: 0-10 Numeric Is Patient Pain Free? Yes Yes - Nurse 3 - General Ulcer D/C NN Start: 11/11/24 14:32 Freq: Status: Active Protocol: Activity Type Activity Date Activity User E-sign Co-sign Detail Recorded Client Recorded Date Recorded By Document 11/11/24 15:23 KW [id number] 11/11/24 15:24 KW Document 11/18/24 10:49 KW [id number] 11/18/24 10:50 KW 11/11/24 11/18/24 15:23 10:49 Wound Care Center Nurse 3 #4 Rt med le -Primary Dressing Applied AMD Dressing Silicone Border 4x4,Silicone Foam 6x6 Border Foam 6x6 -Other Dressing hydrogel then amd pad -AMD Dressing 4x4 1 -Silicone Border Foam 6x6 1 1 Pain Scale: 0-10 Numeric Is Patient Pain Free? Yes Yes - Visit Discharge Discharge Condition Stable Stable Ambulatory Status [facility] Ambulatory Transportation Private Auto Private Auto Medication Reconcilliation completed & No No provided to patient/care provider Clinical Summary of Care Provided Yes Yes Additional Wound Anesthesia Used: Cetacaine Charges/Coding Procedures Integumentary 150xxx-152xx: 58197 Skin sub graft trnk/arm/leg Assessment/Plan Assessment/Plan (1) Non-pressure chronic ulcer of right calf with fat layer exposed: CODE(S): L97.212 - Non-pressure chronic ulcer of right calf with fat layer exposed (2) Non-pressure chronic ulcer of right lower leg with fat layer exposed: CODE(S): L97.912 - Non-pressure chronic ulcer of unspecified part of right lower leg with fat layer exposed (3) Traumatic open wound of right lower leg: CODE(S): S81.801A - Unspecified open wound, right lower leg, initial encounter QUALIFIERS: Encounter type: subsequent encounter Qualified Code(s): S81.801D - Unspecified open wound, right lower leg, subsequent encounter (4) Lumbar scoliosis: CODE(S): M41.9 - Scoliosis, unspecified QUALIFIERS: Scoliosis type: other secondary scoliosis Qualified Code(s): M41.56 - Other secondary scoliosis, lumbar region (5) Low back pain: CODE(S): M54.50 - Low back pain, unspecified (6) DDD (degenerative disc disease), lumbosacral: CODE(S): M51.37 - Other intervertebral disc degeneration, lumbosacral region (7) Hypothyroidism (acquired): CODE(S): E03.9 - Hypothyroidism, unspecified (8) Cataracts, bilateral: CODE(S): H26.9 - Unspecified cataract (9) History of tonsillectomy: CODE(S): Z90.89 - Acquired absence of other organs (10) History of IBS: CODE(S): Z87.19 - Personal history of other diseases of the digestive system (11) Former smoker: CODE(S): Z87.891 - Personal history of nicotine dependence (12) History of lumbar spinal fusion: CODE(S): Z98.1 - Arthrodesis status (13) History of hysterectomy: CODE(S): Z90.710 - Acquired absence of both cervix and uterus (14) History of cervical discectomy: CODE(S): Z98.890 - Other specified postprocedural states (15) History of total hip replacement: CODE(S): Z96.649 - Presence of unspecified artificial hip joint (16) Status post spinal disc removal: CODE(S): Z98.890 - Other specified postprocedural states PLAN: Plan This is a 74-year-old female who presented with traumatic wounds in both lower extremities. Although the patient does not relate significant swelling in her lower extremities, measures to prevent such swelling have been thoroughly discussed. The patient has been encouraged to elevate her lower extremities as much as possible. She has been advised to refrain from prolonged, idle sitting. She is to continue wearing her Tubigrips bilaterally on a daily basis. Activity has been encouraged. The patient has been encouraged to optimize her nutritional intake. The patient attests to the fact that her appetite is good, and she is consuming a well-balanced diet. The traumatic wounds in the left lower extremity remain completely healed and epithelialized. A traumatic wound persists on the right pretibial surface. An EpiFix allograft has been applied to the ulceration on the right pretibial surface. This represents the first such application of an allograft at this site. Insurance preauthorization has been obtained several weeks previously, but the status of the wound has not been suitable for application of the allograft until today. Since initial preauthorization approval, the recipient site had enlarged in size slightly, and clinical concerns existed as to the nature of the devitalized material at the wound surface. However, as of today, the wound is devoid of significant necrotic and devitalized material, and appears suitable for application of the EpiFix allograft. The allograft is to be left in place, undisturbed, until the patient returns in 1 week for reevaluation. A noninvasive lower extremity arterial study was performed on June 13, 2024, the results of which revealed no evidence of significant arterial occlusive disease in the lower extremities. Total time: 26 minutes
[2024-11-25 14:43] VITALS: BP 126/77; PULSE 65; RESP 18; TEMP 36.6
--- NOTE | 2024-11-26 12:17 | WC ---
[facility] 11/25/24
--- NOTE | 2024-11-26 12:17 | WC ---
PHOTO-RIGHT [facility] 11/25/24
--- NOTE | 2024-11-27 12:51 | PCM.WC.HP ---
History of Present Illness Date of Service: 11/25/24 Chief Complaint: Right lower extremity traumatic wound History of Wound: This is a 74-year-old female who has presented repeatedly with traumatic wounds to both lower extremities. A wound on the right pretibial surface persists, though all other lower extremity wounds have healed. The patient is mobile and active. She denies swelling in her legs. She sleeps on a flat surface at night. She denies a history of thrombophlebitis. The patient denies a history of congestive heart failure, myocardial infarction, diabetes mellitus, cerebrovascular accident, hypertension, renal disease, and pulmonary disease. She has a history of hypothyroidism. A limited venous duplex examination was performed on October 26, 2022, examining only the right lower extremity, and revealing no evidence of thrombophlebitis. Valvular competence was not fully evaluated. PENDING SALE TO [facility] Medical History Non-pressure chronic ulcer of right calf with fat layer exposed Non-pressure chronic ulcer of right lower leg with fat layer exposed Traumatic open wound of right lower leg Traumatic open wound of left lower leg Non-pressure chronic ulcer of left lower leg with fat layer exposed Non-pressure chronic ulcer of right lower leg with fat layer exposed Traumatic open wound of right lower leg with delayed healing Traumatic open wound of left lower leg with delayed healing Wears glasses Anxiety Alcohol use History of steroid therapy Easy bruising Back pain Injury of back Migraine headache Syncope History of IBS Former smoker Leg cramps History of edema History of stress test Cataracts, bilateral Arthritis Anemia Vitamin D deficiency, unspecified Hypothyroidism Home Medications ?Medication ?Instructions ?Recorded ?Last Taken ?Type lidocaine 5 % topical patch 2 patch topical DAILY 05/03/17 1 Day Ago History ~09/21/17 meloxicam 15 mg tablet 15 mg PO QDAY 05/03/17 09/22/17 History doxepin 10 mg capsule 10 mg PO QHS 12/16/19 Unknown History folic acid 400 mcg tablet 0.4 mg PO DAILY@0800 12/16/19 Unknown History linaclotide 145 mcg capsule 145 mcg PO DAILY 12/16/19 Unknown History estradiol 0.1 mg/24 hr semiweekly 2 patch transdermal MOTH 03/15/20 Unknown History transdermal patch (Bessie) acetaminophen 500 mg tablet 1,000 mg PO BID 01/06/22 Unknown History vitamin P40-puhshrw B1 100 mg-1 1 ml IM .QMO 01/06/22 Unknown History mg/mL intramuscular solution levothyroxine 50 mcg tablet 50 mcg PO DAILY 03/18/24 Unknown History gabapentin 100 mg capsule 100 mg PO BID 05/07/24 Unknown History loratadine 10 mg tablet 10 mg PO .prn 05/07/24 Unknown History sulfamethoxazole 800 1 tab PO Q12H #14 tabs 05/27/24 Unknown Rx mg-trimethoprim 160 mg tablet (Bactrim DS) cephalexin 500 mg capsule 500 mg PO 4X/DAY 07/08/24 Unknown History doxycycline hyclate 100 mg tablet 100 mg PO BID 07/08/24 Unknown History sulfamethoxazole 800 1 tab PO Q12H #14 tabs 07/08/24 Unknown Rx mg-trimethoprim 160 mg tablet (Bactrim DS) sulfamethoxazole 800 1 tab PO Q12H wound infection #14 09/10/24 Unknown Rx mg-trimethoprim 160 mg tablet tabs (Bactrim DS) Allergy/AdvReac Type Severity Reaction Status Date / Time No Known Allergies Allergy Verified 05/07/24 11:09 Family History Mother Rheumatoid arthritis Father Pancreatic cancer Cancer Grandfather Myocardial infarction Grandmother Thyroid disorder Surgical History Status post spinal disc removal History of tonsillectomy History of lumbar spinal fusion History of total hip replacement History of hysterectomy History of cervical discectomy Social History household members: spouse Smoking Status: Never smoker alcohol intake: current alcohol intake frequency: a few times a week Alcohol type: wine substance use type: does not use what type of physical activity do you participate in: other details: physical therapy frequency: 1-2 times per week Physical Exam Const alert, oriented x3, no apparent distress, average body habitus and no limitations Constitutional Narrative: The patient's BMI is 19.7. She is of thin body habitus. General Appearance: cooperative, comfortable, well kempt and well developed Orientation / Consciousness: awake, oriented to person, oriented to place and oriented to time Exam Limitations: no limitations HEENT normocephalic, head/scalp atraumatic and hearing grossly normal bilaterally Head and Scalp: normal to inspection, normocephalic and atraumatic Face and Sinus: normal facial exam Nose: external nose normal External Ear: external ears normal Eyes EOMs intact bilaterally General Eye: normal appearance of both eyes Neck full ROM Resp normal respiratory effort, normal air movement, no retractions and no use of accessory muscles Effort and Inspection: able to speak in complete sentences Extremity no clubbing, cyanosis or edema and no calf tenderness General Extremity: normal exam except as noted Skin Wound Narrative: The patient's lower extremities appear warm and well-perfused. Pedal pulses are easily palpable bilaterally. There is no significant swelling or edema in the patient's lower extremities. The wounds on the patient's left lower extremity remain completely healed and epithelialized. The traumatic wound on the patient's right pretibial surface appears pink and healthy in appearance. There is no sign of infection or cellulitis. An EpiFix allograft which was applied 1 week prior remains intact and firmly adherent. Wound dimensions are documented elsewhere. Hair: normal Neuro oriented x3, CN's II-XII intact bilaterally, moves all extremities, no focal motor deficits and no sensory deficits noted Sensorium / Orientation: awake, alert, oriented to person, oriented to place and oriented to time Speech: speech normal Psych Appearance: grossly normal and appropriate Attitude: calm Activity / Motor Behavior: appropriate eye contact Speech: normal speech Mood & Affect: euthymic mood Thought Process: normal thought process Thought Content: normal thought content Attention / Concentration: attention grossly intact Debridement Note Debridement Note Debridement Free Text: No debridement was performed today. However, the EpiFix allograft, placed 1 week ago, was dressed with Adaptic Touch, which was secured with Steri-Strips, over which collagen hydrogel was placed, followed by a dry sterile gauze dressing. No debridement was completed: No debridement was completed today Post-Debridement Measurements and Additional Note: Post-Debridement Measurements/Treatment JOE - Nurse 1 - General Ulcer Assessment Start: 11/11/24 14:32 Freq: Status: Active Protocol: QUIANA Activity Type Activity Date Activity User E-sign Co-sign Detail Recorded Client Recorded Date Recorded By Document 11/11/24 14:33 KW [id number] 11/11/24 14:41 KW Document 11/18/24 10:15 KW [id number] 11/18/24 10:22 KW Document 11/25/24 14:43 KW [id number] 11/25/24 15:05 KW 11/11/24 11/18/24 11/25/24 14:33 10:15 14:43 - Today's Visit Information Type of service Follow-up Visit Follow-up Visit Follow-up Visit (Physician/SHOT HOLE DRILLER (Physician/SHOT HOLE DRILLER (Physician/SHOT HOLE DRILLER ) ) ) Arrival Mode Ambulatory Ambulatory Ambulatory Patient Identification Verified (Name & Yes Yes Yes ) Vital Signs Temperature (97.8 F-99.1 F) 97.4 F L 97.9 F 97.9 F Temperature Source Temporal Temporal Temporal Pulse Rate (60-100) 65 72 65 Pulse Location Monitor Monitor Monitor Respiratory Rate (12-18) 18 18 18 Respiratory rate source Observation Observation Observation Oxygen Delivery Method Room Air Room Air Room Air Blood Pressure (90/60-120/80) 131/65 H 109/71 126/77 H Blood Pressure Mean 87 83 93 Source Monitor Monitor Monitor Position Sitting Semi-Fowlers Semi-Fowlers Blood Pressure Location Left Arm Right Arm Left Arm History Since Last Visit- (Skip if this is Patient's initial visit) Have you changed medications since your No No No last visit? Any new allergies or adverse reactions No No No Had a fall/change in ADL's that may No No No increase risk of falls Signs or symptoms of abuse and/or No No No neglect since last visit Have you been in the hospital since your No No No last visit? Has dressing in place as prescribed Yes Yes Yes Has compression in place as prescribed Yes Yes N/A Has offloadiing in place as prescribed N/A N/A N/A Experienced any changes in pain level or No No No management Left Footwear Regular Shoe Regular Shoe Regular Shoe Right Footwear Regular Shoe Regular Shoe Regular Shoe Pain Scale: 0-10 Numeric Is Patient Pain Free? Yes Yes Yes - Nurse 1 - General Ulcer Measurement Start: 11/11/24 14:32 Freq: Status: Active Protocol: Activity Type Activity Date Activity User E-sign Co-sign Detail Recorded Client Recorded Date Recorded By Document 11/11/24 14:33 KW [id number] 11/11/24 14:41 KW Document 11/18/24 10:15 KW [id number] 11/18/24 10:22 KW Document 11/25/24 14:43 KW [id number] 11/25/24 15:05 KW 11/11/24 11/18/24 11/25/24 14:33 10:15 14:43 Wound Center Nurse 1 #4 Rt med le -Current Size (cm) - Length 3 -Current Size (cm) - Width 1.5 -Current Size (cm) - Depth 0.1 -Total Square Cm 4.5 -Date of Last Picture (Recall this 11/11/24 11/25/24 field) -Exudate Amt Medium Medium Small -Exudate Type Serosanguineous Serosanguineous Serosanguineous -Wound Margin Distinct, Distinct, Distinct, Outline Outline Outline Attached Attached Attached -Granulation Amt Large (67-100%) Large (67-100%) Large (67-100%) -Granulation Quality [place] Red [place] -Texture (Joyce-wound Skin Appearance) Assessed Assessed Assessed -Moisture (Joyce-wound Skin Appearance) Assessed Assessed Assessed -Color (Joyce-wound Skin Appearance) Assessed Assessed Assessed -Temperature (Joyce-wound Skin No Abnormality No Abnormality No Abnormality Appearance) (Pt Warm) (Pt Warm) (Pt Warm) -Tenderness on Palpation (Joyce-wound No No No Skin Appearance) -Ulcer Cleansing Rinsed/ Soap and Water Soap and Water Irrigated with Saline -Foul Odor after Cleansing No No No -Anesthetic Used 5% Lidocaine 5% Lidocaine 5% Lidocaine Gel Gel Gel WC - Nurse 2 - General Ulcer CM Notes Start: 11/11/24 14:32 Freq: Status: Active Protocol: Activity Type Activity Date Activity User E-sign Co-sign Detail Recorded Client Recorded Date Recorded By Document 11/11/24 15:09 DS [id number] 11/11/24 15:12 DS Document 11/18/24 10:38 [id number] 11/18/24 10:40 Document 11/25/24 15:10 [facility] [id number] 11/25/24 15:18 [facility] 11/11/24 11/18/24 11/25/24 15:09 10:38 15:10 Wound Center Nurse 2 #4 Rt med le -Time 15: 10:38 15:10 -Correct Patient Yes Yes -Correct Side, Site, Position Yes Yes -Correct Procedure Yes Yes -Procedure Performed Yes Yes No -Type of Procedure Debridement Debridement -Clinical Debridement Subcutaneous Subcutaneous -Tissue Removed Subcutaneous Subcutaneous -Post Debridement (cm) - Length 3.0 3.3 3.1 -Post Debridement (cm) - Width 2.6 3.0 2.8 -Post Debridement (cm) - Depth 0.1 0.1 0.1 -Total Square (Post) (cm) 7.80 9.90 8.68 -Area of Debridement (cm) - Length 3.0 3.3 3.1 -Area of Debridement (cm) - Width 2.6 3.0 2.8 -Total Square (Area) (cm) 7.80 9.90 8.68 -Tunneling No No No -Undermining/Tunneling No No No -Circular Undermining No No No -Wound/Ulcer Outcome Not Healed Not Healed Not Healed -Ulcer Cleansing gauze Rinsed/ JOYCE WOUND Irrigated with WASHED WELL W/ Saline NS -Foul Odor after Cleansing No No -Bioengineered Tissue No Yes -Type of Bioengineered Tissue Epifix Mesh -Expiration Date 04/09/29 -Product Lot Number [id number] -Percent Used 100 -Lot number of Saline Used [id number] -Bleeding Controlled with Pressure Pressure NA -Treatment Response Procedure Procedure Procedure Tolerated Well Tolerated Well Tolerated Well -Offloading No -Debridement - Subq, 1st 20sq cm Yes No -Apply Skin Sub - 1st 25 sq cm - Legs 1 -Epifix Mesh Application 1-4 (per sq 11 cm) -Wound Comment(s) EPIMESH INTACT, WILL LEAVE FOR ANOTHER WEEK. [place], ADAPTIC TOUCH APPLIED. Pain Scale: 0-10 Numeric Is Patient Pain Free? Yes Yes Yes WC - Nurse 3 - General Ulcer D/C NN Start: 11/11/24 14:32 Freq: Status: Active Protocol: Activity Type Activity Date Activity User E-sign Co-sign Detail Recorded Client Recorded Date Recorded By Document 11/11/24 15:23 KW [id number] 11/11/24 15:24 KW Document 11/18/24 10:49 KW [id number] 11/18/24 10:50 KW Document 11/25/24 15:21 [facility] [id number] 11/25/24 15:22 BM 11/11/24 11/18/24 11/25/24 15:23 10:49 15:21 Wound Care Center Nurse 3 #4 Rt med le -Primary Dressing Applied AMD Dressing Silicone Border Silicone Border 4x4,Silicone Foam 6x6 Foam 6x6 Border Foam 6x6 -Other Dressing hydrogel then HYDROGEL amd pad -AMD Dressing 4x4 1 -Silicone Border Foam 6x6 1 1 1 LLE -Other PT REFUSES NEW TUBI. HAS MULTIPLES AT HOME SHE STATES Treatment Response Procedure Tolerated Well Pain Scale: 0-10 Numeric Is Patient Pain Free? Yes Yes Yes WC - Visit Discharge Discharge Condition Stable Stable Stable Ambulatory Status Walker Ambulatory Ambulatory Transportation Private Auto Private Auto Private Auto Medication Reconcilliation completed & No No provided to patient/care provider Clinical Summary of Care Provided Yes Yes Charges/Coding Visit Charges Office Visits / Consults: [id number] OV L3 Est 20min Assessment/Plan Assessment/Plan (1) Non-pressure chronic ulcer of right calf with fat layer exposed: CODE(S): L97.212 - Non-pressure chronic ulcer of right calf with fat layer exposed (2) Non-pressure chronic ulcer of right lower leg with fat layer exposed: CODE(S): L97.912 - Non-pressure chronic ulcer of unspecified part of right lower leg with fat layer exposed (3) Traumatic open wound of right lower leg: CODE(S): S81.801A - Unspecified open wound, right lower leg, initial encounter QUALIFIERS: Encounter type: subsequent encounter Qualified Code(s): S81.801D - Unspecified open wound, right lower leg, subsequent encounter (4) Lumbar scoliosis: CODE(S): M41.9 - Scoliosis, unspecified QUALIFIERS: Scoliosis type: other secondary scoliosis Qualified Code(s): M41.56 - Other secondary scoliosis, lumbar region (5) Low back pain: CODE(S): M54.50 - Low back pain, unspecified (6) DDD (degenerative disc disease), lumbosacral: CODE(S): M51.37 - Other intervertebral disc degeneration, lumbosacral region (7) Hypothyroidism (acquired): CODE(S): E03.9 - Hypothyroidism, unspecified (8) Cataracts, bilateral: CODE(S): H26.9 - Unspecified cataract (9) History of tonsillectomy: CODE(S): Z90.89 - Acquired absence of other organs (10) History of IBS: CODE(S): Z87.19 - Personal history of other diseases of the digestive system (11) Former smoker: CODE(S): Z87.891 - Personal history of nicotine dependence (12) History of lumbar spinal fusion: CODE(S): Z98.1 - Arthrodesis status (13) History of hysterectomy: CODE(S): Z90.710 - Acquired absence of both cervix and uterus (14) History of cervical discectomy: CODE(S): Z98.890 - Other specified postprocedural states (15) History of total hip replacement: CODE(S): Z96.649 - Presence of unspecified artificial hip joint (16) Status post spinal disc removal: CODE(S): Z98.890 - Other specified postprocedural states PLAN: Plan This is a 74-year-old female who presented with traumatic wounds in both lower extremities. Although the patient does not relate significant swelling in her lower extremities, measures to prevent such swelling have been thoroughly discussed. The patient has been encouraged to elevate her lower extremities as much as possible. She has been advised to refrain from prolonged, idle sitting. She is to continue wearing her Tubigrips bilaterally on a daily basis. Activity has been encouraged. The patient has been encouraged to optimize her nutritional intake. The patient attests to the fact that her appetite is good, and she is consuming a well-balanced diet. The traumatic wounds in the left lower extremity remain completely healed and epithelialized. A traumatic wound persists on the right pretibial surface. An EpiFix allograft (#1) was applied to the right pretibial ulceration last week. It appears to be intact and firmly attached. Therefore, the decision was made to leave the allograft in place, undisturbed, to be reevaluated one week hence. The patient is to leave the dressing in place and undisturbed, and will return in 1 week for reevaluation. Total time: 22 minutes
--- NOTE | 2024-11-27 12:51 | PCM.WC.HP ---
History of Present Illness Date of Service: 11/25/24 Chief Complaint: Right lower extremity traumatic wound History of Wound: This is a 74-year-old female who has presented repeatedly with traumatic wounds to both lower extremities. A wound on the right pretibial surface persists, though all other lower extremity wounds have healed. The patient is mobile and active. She denies swelling in her legs. She sleeps on a flat surface at night. She denies a history of thrombophlebitis. The patient denies a history of congestive heart failure, myocardial infarction, diabetes mellitus, cerebrovascular accident, hypertension, renal disease, and pulmonary disease. She has a history of hypothyroidism. A limited venous duplex examination was performed on October 26, 2022, examining only the right lower extremity, and revealing no evidence of thrombophlebitis. Valvular competence was not fully evaluated. [facility] Medical History Non-pressure chronic ulcer of right calf with fat layer exposed Non-pressure chronic ulcer of right lower leg with fat layer exposed Traumatic open wound of right lower leg Traumatic open wound of left lower leg Non-pressure chronic ulcer of left lower leg with fat layer exposed Non-pressure chronic ulcer of right lower leg with fat layer exposed Traumatic open wound of right lower leg with delayed healing Traumatic open wound of left lower leg with delayed healing Wears glasses Anxiety Alcohol use History of steroid therapy Easy bruising Back pain Injury of back Migraine headache Syncope History of IBS Former smoker Leg cramps History of edema History of stress test Cataracts, bilateral Arthritis Anemia Vitamin D deficiency, unspecified Hypothyroidism Home Medications ?Medication ?Instructions ?Recorded ?Last Taken ?Type lidocaine 5 % topical patch 2 patch topical DAILY 05/03/17 1 Day Ago History ~09/21/17 meloxicam 15 mg tablet 15 mg PO QDAY 05/03/17 09/22/17 History doxepin 10 mg capsule 10 mg PO QHS 12/16/19 Unknown History folic acid 400 mcg tablet 0.4 mg PO DAILY@0800 12/16/19 Unknown History linaclotide 145 mcg capsule 145 mcg PO DAILY 12/16/19 Unknown History estradiol 0.1 mg/24 hr semiweekly 2 patch transdermal MOTH 03/15/20 Unknown History transdermal patch (Bessie) acetaminophen 500 mg tablet 1,000 mg PO BID 01/06/22 Unknown History vitamin H86-roeghyt B1 100 mg-1 1 ml IM .QMO 01/06/22 Unknown History mg/mL intramuscular solution levothyroxine 50 mcg tablet 50 mcg PO DAILY 03/18/24 Unknown History gabapentin 100 mg capsule 100 mg PO BID 05/07/24 Unknown History loratadine 10 mg tablet 10 mg PO .prn 05/07/24 Unknown History sulfamethoxazole 800 1 tab PO Q12H #14 tabs 05/27/24 Unknown Rx mg-trimethoprim 160 mg tablet (Bactrim DS) cephalexin 500 mg capsule 500 mg PO 4X/DAY 07/08/24 Unknown History doxycycline hyclate 100 mg tablet 100 mg PO BID 07/08/24 Unknown History sulfamethoxazole 800 1 tab PO Q12H #14 tabs 07/08/24 Unknown Rx mg-trimethoprim 160 mg tablet (Bactrim DS) sulfamethoxazole 800 1 tab PO Q12H wound infection #14 09/10/24 Unknown Rx mg-trimethoprim 160 mg tablet tabs (Bactrim DS) Allergy/AdvReac Type Severity Reaction Status Date / Time No Known Allergies Allergy Verified 05/07/24 11:09 Family History Mother Rheumatoid arthritis Father Pancreatic cancer Cancer Grandfather Myocardial infarction Grandmother Thyroid disorder Surgical History Status post spinal disc removal History of tonsillectomy History of lumbar spinal fusion History of total hip replacement History of hysterectomy History of cervical discectomy Social History household members: spouse Smoking Status: Never smoker alcohol intake: current alcohol intake frequency: a few times a week Alcohol type: wine substance use type: does not use what type of physical activity do you participate in: other details: physical therapy frequency: 1-2 times per week Physical Exam Const alert, oriented x3, no apparent distress, average body habitus and no limitations Constitutional Narrative: The patient's BMI is 19.7. She is of thin body habitus. General Appearance: cooperative, comfortable, well kempt and well developed Orientation / Consciousness: awake, oriented to person, oriented to place and oriented to time Exam Limitations: no limitations HEENT normocephalic, head/scalp atraumatic and hearing grossly normal bilaterally Head and Scalp: normal to inspection, normocephalic and atraumatic Face and Sinus: normal facial exam Nose: external nose normal External Ear: external ears normal Eyes EOMs intact bilaterally General Eye: normal appearance of both eyes Neck full ROM Resp normal respiratory effort, normal air movement, no retractions and no use of accessory muscles Effort and Inspection: able to speak in complete sentences Extremity no clubbing, cyanosis or edema and no calf tenderness General Extremity: normal exam except as noted Skin Wound Narrative: The patient's lower extremities appear warm and well-perfused. Pedal pulses are easily palpable bilaterally. There is no significant swelling or edema in the patient's lower extremities. The wounds on the patient's left lower extremity remain completely healed and epithelialized. The traumatic wound on the patient's right pretibial surface appears pink and healthy in appearance. There is no sign of infection or cellulitis. An EpiFix allograft which was applied 1 week prior remains intact and firmly adherent. Wound dimensions are documented elsewhere. Hair: normal Neuro oriented x3, CN's II-XII intact bilaterally, moves all extremities, no focal motor deficits and no sensory deficits noted Sensorium / Orientation: awake, alert, oriented to person, oriented to place and oriented to time Speech: speech normal Psych Appearance: grossly normal and appropriate Attitude: calm Activity / Motor Behavior: appropriate eye contact Speech: normal speech Mood & Affect: euthymic mood Thought Process: normal thought process Thought Content: normal thought content Attention / Concentration: attention grossly intact Debridement Note Debridement Note Debridement Free Text: No debridement was performed today. However, the EpiFix allograft, placed 1 week ago, was dressed with Adaptic Touch, which was secured with Steri-Strips, over which collagen hydrogel was placed, followed by a dry sterile gauze dressing. No debridement was completed: No debridement was completed today Post-Debridement Measurements and Additional Note: Post-Debridement Measurements/Treatment JOE - Nurse 1 - General Ulcer Assessment Start: 11/11/24 14:32 Freq: Status: Active Protocol: QUIANA Activity Type Activity Date Activity User E-sign Co-sign Detail Recorded Client Recorded Date Recorded By Document 11/11/24 14:33 KW [id number] 11/11/24 14:41 KW Document 11/18/24 10:15 KW [id number] 11/18/24 10:22 KW Document 11/25/24 14:43 KW [id number] 11/25/24 15:05 KW 11/11/24 11/18/24 11/25/24 14:33 10:15 14:43 - Today's Visit Information Type of service Follow-up Visit Follow-up Visit Follow-up Visit (Physician/BEEHIVE KILN CHARCOAL BURNER (Physician/BEEHIVE KILN CHARCOAL BURNER (Physician/BEEHIVE KILN CHARCOAL BURNER ) ) ) Arrival Mode Ambulatory Ambulatory Ambulatory Patient Identification Verified (Name & Yes Yes Yes ) Vital Signs Temperature (97.8 F-99.1 F) 97.4 F L 97.9 F 97.9 F Temperature Source Temporal Temporal Temporal Pulse Rate (60-100) 65 72 65 Pulse Location Monitor Monitor Monitor Respiratory Rate (12-18) 18 18 18 Respiratory rate source Observation Observation Observation Oxygen Delivery Method Room Air Room Air Room Air Blood Pressure (90/60-120/80) 131/65 H 109/71 126/77 H Blood Pressure Mean 87 83 93 Source Monitor Monitor Monitor Position Sitting Semi-Fowlers Semi-Fowlers Blood Pressure Location Left Arm Right Arm Left Arm History Since Last Visit- (Skip if this is Patient's initial visit) Have you changed medications since your No No No last visit? Any new allergies or adverse reactions No No No Had a fall/change in ADL's that may No No No increase risk of falls Signs or symptoms of abuse and/or No No No neglect since last visit Have you been in the hospital since your No No No last visit? Has dressing in place as prescribed Yes Yes Yes Has compression in place as prescribed Yes Yes N/A Has offloadiing in place as prescribed N/A N/A N/A Experienced any changes in pain level or No No No management Left Footwear Regular Shoe Regular Shoe Regular Shoe Right Footwear Regular Shoe Regular Shoe Regular Shoe Pain Scale: 0-10 Numeric Is Patient Pain Free? Yes Yes Yes - Nurse 1 - General Ulcer Measurement Start: 11/11/24 14:32 Freq: Status: Active Protocol: Activity Type Activity Date Activity User E-sign Co-sign Detail Recorded Client Recorded Date Recorded By Document 11/11/24 14:33 KW [id number] 11/11/24 14:41 KW Document 11/18/24 10:15 KW [id number] 11/18/24 10:22 KW Document 11/25/24 14:43 KW [id number] 11/25/24 15:05 KW 11/11/24 11/18/24 11/25/24 14:33 10:15 14:43 Wound Center Nurse 1 #4 Rt med le -Current Size (cm) - Length 3 -Current Size (cm) - Width 1.5 -Current Size (cm) - Depth 0.1 -Total Square Cm 4.5 -Date of Last Picture (Recall this 11/11/24 11/25/24 field) -Exudate Amt Medium Medium Small -Exudate Type Serosanguineous Serosanguineous Serosanguineous -Wound Margin Distinct, Distinct, Distinct, Outline Outline Outline Attached Attached Attached -Granulation Amt Large (67-100%) Large (67-100%) Large (67-100%) -Granulation Quality [place] -Texture (Joyce-wound Skin Appearance) Assessed Assessed Assessed -Moisture (Joyce-wound Skin Appearance) Assessed Assessed Assessed -Color (Joyce-wound Skin Appearance) Assessed Assessed Assessed -Temperature (Joyce-wound Skin No Abnormality No Abnormality No Abnormality Appearance) (Pt Warm) (Pt Warm) (Pt Warm) -Tenderness on Palpation (Joyce-wound No No No Skin Appearance) -Ulcer Cleansing Rinsed/ Soap and Water Soap and Water Irrigated with Saline -Foul Odor after Cleansing No No No -Anesthetic Used 5% Lidocaine 5% Lidocaine 5% Lidocaine Gel Gel Gel WC - Nurse 2 - General Ulcer CM Notes Start: 11/11/24 14:32 Freq: Status: Active Protocol: Activity Type Activity Date Activity User E-sign Co-sign Detail Recorded Client Recorded Date Recorded By Document 11/11/24 15:09 DS [id number] 11/11/24 15:12 DS Document 11/18/24 10:38 [id number] 11/18/24 10:40 Document 11/25/24 15:10 [facility] [id number] 11/25/24 15:18 [facility] 11/11/24 11/18/24 11/25/24 15:09 10:38 15:10 Wound Center Nurse 2 #4 Rt med le -Time 15: 10:38 15:10 -Correct Patient Yes Yes -Correct Side, Site, Position Yes Yes -Correct Procedure Yes Yes -Procedure Performed Yes Yes No -Type of Procedure Debridement Debridement -Clinical Debridement Subcutaneous Subcutaneous -Tissue Removed Subcutaneous Subcutaneous -Post Debridement (cm) - Length 3.0 3.3 3.1 -Post Debridement (cm) - Width 2.6 3.0 2.8 -Post Debridement (cm) - Depth 0.1 0.1 0.1 -Total Square (Post) (cm) 7.80 9.90 8.68 -Area of Debridement (cm) - Length 3.0 3.3 3.1 -Area of Debridement (cm) - Width 2.6 3.0 2.8 -Total Square (Area) (cm) 7.80 9.90 8.68 -Tunneling No No No -Undermining/Tunneling No No No -Circular Undermining No No No -Wound/Ulcer Outcome Not Healed Not Healed Not Healed -Ulcer Cleansing gauze Rinsed/ JYOCE WOUND Irrigated with WASHED WELL W/ Saline NS -Foul Odor after Cleansing No No -Bioengineered Tissue No Yes -Type of Bioengineered Tissue Epifix Mesh -Expiration Date 04/09/29 -Product Lot Number [id number] -Percent Used 100 -Lot number of Saline Used [id number] -Bleeding Controlled with Pressure Pressure NA -Treatment Response Procedure Procedure Procedure Tolerated Well Tolerated Well Tolerated Well -Offloading No -Debridement - Subq, 1st 20sq cm Yes No -Apply Skin Sub - 1st 25 sq cm - Legs 1 -Epifix Mesh Application 1-4 (per sq 11 cm) -Wound Comment(s) EPIMESH INTACT, WILL LEAVE FOR ANOTHER WEEK. [place], ADAPTIC TOUCH APPLIED. Pain Scale: 0-10 Numeric Is Patient Pain Free? Yes Yes Yes WC - Nurse 3 - General Ulcer D/C NN Start: 11/11/24 14:32 Freq: Status: Active Protocol: Activity Type Activity Date Activity User E-sign Co-sign Detail Recorded Client Recorded Date Recorded By Document 11/11/24 15:23 KW [id number] 11/11/24 15:24 KW Document 11/18/24 10:49 KW [id number] 11/18/24 10:50 KW Document 11/25/24 15:21 [facility] [id number] 11/25/24 15:22 BM 11/11/24 11/18/24 11/25/24 15:23 10:49 15:21 Wound Care Center Nurse 3 #4 Rt med le -Primary Dressing Applied AMD Dressing Silicone Border Silicone Border 4x4,Silicone Foam 6x6 Foam 6x6 Border Foam 6x6 -Other Dressing hydrogel then HYDROGEL amd pad -AMD Dressing 4x4 1 -Silicone Border Foam 6x6 1 1 1 LLE -Other PT REFUSES NEW TUBI. HAS MULTIPLES AT HOME SHE STATES Treatment Response Procedure Tolerated Well Pain Scale: 0-10 Numeric Is Patient Pain Free? Yes Yes Yes WC - Visit Discharge Discharge Condition Stable Stable Stable Ambulatory Status Walker Ambulatory Ambulatory Transportation Private Auto Private Auto Private Auto Medication Reconcilliation completed & No No provided to patient/care provider Clinical Summary of Care Provided Yes Yes Charges/Coding Visit Charges Office Visits / Consults: 20623 OV L3 Est 20min Assessment/Plan Assessment/Plan (1) Non-pressure chronic ulcer of right calf with fat layer exposed: CODE(S): L97.212 - Non-pressure chronic ulcer of right calf with fat layer exposed (2) Non-pressure chronic ulcer of right lower leg with fat layer exposed: CODE(S): L97.912 - Non-pressure chronic ulcer of unspecified part of right lower leg with fat layer exposed (3) Traumatic open wound of right lower leg: CODE(S): S81.801A - Unspecified open wound, right lower leg, initial encounter QUALIFIERS: Encounter type: subsequent encounter Qualified Code(s): S81.801D - Unspecified open wound, right lower leg, subsequent encounter (4) Lumbar scoliosis: CODE(S): M41.9 - Scoliosis, unspecified QUALIFIERS: Scoliosis type: other secondary scoliosis Qualified Code(s): M41.56 - Other secondary scoliosis, lumbar region (5) Low back pain: CODE(S): M54.50 - Low back pain, unspecified (6) DDD (degenerative disc disease), lumbosacral: CODE(S): M51.37 - Other intervertebral disc degeneration, lumbosacral region (7) Hypothyroidism (acquired): CODE(S): E03.9 - Hypothyroidism, unspecified (8) Cataracts, bilateral: CODE(S): H26.9 - Unspecified cataract (9) History of tonsillectomy: CODE(S): Z90.89 - Acquired absence of other organs (10) History of IBS: CODE(S): Z87.19 - Personal history of other diseases of the digestive system (11) Former smoker: CODE(S): Z87.891 - Personal history of nicotine dependence (12) History of lumbar spinal fusion: CODE(S): Z98.1 - Arthrodesis status (13) History of hysterectomy: CODE(S): Z90.710 - Acquired absence of both cervix and uterus (14) History of cervical discectomy: CODE(S): Z98.890 - Other specified postprocedural states (15) History of total hip replacement: CODE(S): Z96.649 - Presence of unspecified artificial hip joint (16) Status post spinal disc removal: CODE(S): Z98.890 - Other specified postprocedural states PLAN: Plan This is a 74-year-old female who presented with traumatic wounds in both lower extremities. Although the patient does not relate significant swelling in her lower extremities, measures to prevent such swelling have been thoroughly discussed. The patient has been encouraged to elevate her lower extremities as much as possible. She has been advised to refrain from prolonged, idle sitting. She is to continue wearing her Tubigrips bilaterally on a daily basis. Activity has been encouraged. The patient has been encouraged to optimize her nutritional intake. The patient attests to the fact that her appetite is good, and she is consuming a well-balanced diet. The traumatic wounds in the left lower extremity remain completely healed and epithelialized. A traumatic wound persists on the right pretibial surface. An EpiFix allograft (#1) was applied to the right pretibial ulceration last week. It appears to be intact and firmly attached. Therefore, the decision was made to leave the allograft in place, undisturbed, to be reevaluated one week hence. The patient is to leave the dressing in place and undisturbed, and will return in 1 week for reevaluation. Total time: 22 minutes
[2024-12-02 13:40] VITALS: BP 130/87; PULSE 66; RESP 16; TEMP 36.7
--- NOTE | 2024-12-03 14:06 | WC ---
PHOTO-RIGHT MED LEG 12/02/24
--- NOTE | 2024-12-03 14:06 | WC ---
PHOTO-RIGHT MED LEG 12/02/24
--- NOTE | 2024-12-07 18:12 | HP.PCM_ITS ---
History of Present Illness Date of Service: 12/02/24 Chief Complaint: Right lower extremity traumatic wound History of Wound: This is a 74-year-old female who has presented repeatedly with traumatic wounds to both lower extremities. A wound on the right pretibial surface persists, though all other lower extremity wounds have healed. The patient is mobile and active. She denies swelling in her legs. She sleeps on a flat surface at night. She denies a history of thrombophlebitis. The patient denies a history of congestive heart failure, myocardial infarction, diabetes mellitus, cerebrovascular accident, hypertension, renal disease, and pulmonary disease. She has a history of hypothyroidism. A limited venous duplex examination was performed on October 26, 2022, examining only the right lower extremity, and revealing no evidence of thrombophlebitis. Valvular competence was not fully evaluated. [facility] Medical History Non-pressure chronic ulcer of right calf with fat layer exposed Non-pressure chronic ulcer of right lower leg with fat layer exposed Traumatic open wound of right lower leg Traumatic open wound of left lower leg Non-pressure chronic ulcer of left lower leg with fat layer exposed Non-pressure chronic ulcer of right lower leg with fat layer exposed Traumatic open wound of right lower leg with delayed healing Traumatic open wound of left lower leg with delayed healing Wears glasses Anxiety Alcohol use History of steroid therapy Easy bruising Back pain Injury of back Migraine headache Syncope History of IBS Former smoker Leg cramps History of edema History of stress test Cataracts, bilateral Arthritis Anemia Vitamin D deficiency, unspecified Hypothyroidism Home Medications ?Medication ?Instructions ?Recorded ?Last Taken ?Type lidocaine 5 % topical patch 2 patch topical DAILY 04/10 08/24 1 Day Ago History ~09/21/17 meloxicam 15 mg tablet 15 mg PO QDAY 05/03/1709/22 History doxepin 10 mg capsule 10 mg PO QHS 12/16/19 Unknow n History folic acid 400 mcg tablet 0.4 mg PO DAILY@0800 0 Unknown History linaclotide 145 mcg capsule 145 mcg PO DAILY 12/16/19 Unknown History estradiol 0.1 mg/24 hr semiweekly 2 patch transdermal MOTH 03/15/20 Unknown History transdermal patch (Bessie) acetaminophen 500 mg tablet 1,000 mg PO BID 09/30/22 U nknown History vitamin G13-vappomb B1 100 mg-1 1 ml IM .QMO 01/06/22 Unknown History mg/mL intramuscular solution levothyroxine 50 mcg tablet 50 mcg PO DAILY 03/18/24 U nknown History gabapentin 100 mg capsule 100 mg PO BID 05/07/24 Unkno wn History loratadine 10 mg tablet 10 mg PO .prn 05/07/24 Unkno wn History sulfamethoxazole 800 1 tab PO Q12H #14 tabs 05/27 Unknown Rx mg-trimethoprim 160 mg tablet (Bactrim DS) cephalexin 500 mg capsule 500 mg PO 4X/DAY 07/08/24 Un known History doxycycline hyclate 100 mg tablet 100 mg PO BID Unknown History sulfamethoxazole 800 1 tab PO Q12H #14 tabs 07/08 Unknown Rx mg-trimethoprim 160 mg tablet (Bactrim DS) sulfamethoxazole 800 1 tab PO Q12H wound infectio n #14 09/10/24 Unknown Rx mg-trimethoprim 160 mg tablet tabs (Bactrim DS) Allergy/AdvReac Type Severity Reaction Status Date / Time No Known Allergies Allergy Verified 05/07/24 11:09 Family History Mother Rheumatoid arthritis Father Pancreatic cancer Cancer Grandfather Myocardial infarction Grandmother Thyroid disorder Surgical History Status post spinal disc removal History of tonsillectomy History of lumbar spinal fusion History of total hip replacement History of hysterectomy History of cervical discectomy Social History household members: spouse Smoking Status: Never smoker alcohol intake: current alcohol intake frequency: a few times a week Alcohol type: wine substance use type: does not use what type of physical activity do you participate in: other details: physical therapy frequency: 1-2 times per week Physical Exam Const alert, oriented x3, no apparent distress, average body habitus and no limitations Constitutional Narrative: The patient's BMI is 19.7. She is of thin body habitus. General Appearance: cooperative, comfortable, well kempt and well developed Orientation / Consciousness: awake, oriented to person, oriented to place and oriented to time Exam Limitations: no limitations HEENT normocephalic, head/scalp atraumatic and hearing grossly normal bilaterally Head and Scalp: normal to inspection, normocephalic and atraumatic Face and Sinus: normal facial exam Nose: external nose normal External Ear: external ears normal Eyes EOMs intact bilaterally General Eye: normal appearance of both eyes Neck full ROM Resp normal respiratory effort, normal air movement, no retractions and no use of accessory muscles Effort and Inspection: able to speak in complete sentences Extremity no clubbing, cyanosis or edema and no calf tenderness General Extremity: normal exam except as noted Skin Wound Narrative: The patient's lower extremities appear warm and well-perfused. Pedal pulses are easily palpable bilaterally. There is no significant swelling or edema in the patient's lower extremities. The wounds on the patient's left lower extremity remain completely healed and epithelialized. The traumatic wound on the patient's right pretibial surface appears pink and healthy in appearance, with remnants of an allograft which was placed 2 weeks ago. There is evidence of pink healthy granulation tissue. There is no sign of infection or cellulitis. Wound dimensions are documented elsewhere. The wound appears to be decreasing in size. Hair: normal Neuro oriented x3, CN's II-XII intact bilaterally, moves all extremities, no focal motor deficits and no sensory deficits noted Sensorium / Orientation: awake, alert, oriented to person, oriented to place and oriented to time Speech: speech normal Psych Appearance: grossly normal and appropriate Attitude: calm Activity / Motor Behavior: appropriate eye contact Speech: normal speech Mood & Affect: euthymic mood Thought Process: normal thought process Thought Content: normal thought content Attention / Concentration: attention grossly intact Debridement Note Debridement Note Wound debrided: Traumatic right pretibial wound Laterality: Right Type of Debridement: Excisional debridement Anesthesia Used: 5% Lidocaine Gel Depth: Down to and including healthy tissue and in the subcutaneous layer Percentage of wound debrided: 100 Instrument Used: 5mm curette Tissue Removed: Bioburden and remnants of a prior EpiFix allograft Severity: Fat Layer Exposed Amount of bleeding with debridement: Mild Bleeding Controlled with: Compression and gauze Patient tolerated procedure: Patient tolerated procedure well Debridement Free Text: The excisional debridement was well-tolerated. Following the debridement, an EpiFix allograft was applied. Based upon the wound dimensions, a 4.0 cm x 4.5 cm fenestrated EpiFix graft was selected for application. The EpiFix allograft was removed from its sterile packaging. It was applied topically to the wound in the appropriate orientation. 100% of the allograft was utilized. Adaptic Touch was then placed over the allograft, and was secured using Steri-Strips. Collagen hydrogel was applied over the Adaptic Touch, and a dry, sterile occlusive gauze dressing was applied. This represents the second such application of an EpiFix allograft at this site Post-Debridement Measurements and Additional Note: Post-Debridement Measurements/Treatment - Nurse 1 - General Ulcer Assessment Start: 11/11/24 14:32 Freq: Status: Active Protocol: JOE.LOWSTEVENT Activity Type Activity Date Activity User E-sign Co-sign Detail Recorded Client Recorded Date Recorded By Document 11/11/24 14:33 KW [id number] 11/11/24 14:41 KW Document 11/18/24 10:15 KW [id number] 11/18/24 10:22 KW Document 11/25/24 14:43 KW [id number] 11/25/24 15:05 KW Document 12/02/24 13:40 BMF [id number] 12/02/24 13:55 BMF 11/11/24 11/18/24 11/25/24 14:33 10:15 14:43 - Today's Visit Information Type of service Follow-up Visit Follow-up Visit Follow-up Visit (Physician/OIL WELL SERVICE OPERATOR HELPER (Physician/OIL WELL SERVICE OPERATOR HELPER (Physician/OIL WELL SERVICE OPERATOR HELPER ) ) ) Arrival Mode Ambulatory Ambulatory Ambulatory Transfer Assistance Patient Identification Verified (Name & Yes Yes Yes ) Patient Requires Transmission-Based Precautions Vital Signs Temperature (97.8 F-99.1 F) 97.4 F L 97.9 F 97.9 F Temperature Source Temporal Temporal Temporal Pulse Rate (60-100) 65 72 65 Pulse Location Monitor Monitor Monitor Respiratory Rate (12-18) 18 18 18 Respiratory rate source Observation Observation Observation Oxygen Delivery Method Room Air Room Air Room Air Blood Pressure (90/60-120/80) 131/65 H 109/71 126/77 H Blood Pressure Mean 87 83 93 Source Monitor Monitor Monitor Position Sitting Semi-Fowlers Semi-Fowlers Blood Pressure Location Left Arm Right Arm Left Arm History Since Last Visit- (Skip if this is Patient's initial visit) Have you changed medications since your No No No last visit? Any new allergies or adverse reactions No No No Had a fall/change in ADL's that may No No No increase risk of falls Signs or symptoms of abuse and/or No No No neglect since last visit Have you been in the hospital since your No No No last visit? Has dressing in place as prescribed Yes Yes Yes Has compression in place as prescribed Yes Yes N/A Has offloadiing in place as prescribed N/A N/A N/A Experienced any changes in pain level or No No No management Left Footwear Regular Shoe Regular Shoe Regular Shoe Right Footwear Regular Shoe Regular Shoe Regular Shoe Pain Scale: 0-10 Numeric Is Patient Pain Free? Yes Yes Yes 12/02/24 13:40 - Today's Visit Information Type of service Follow-up Visit (Physician/OIL WELL SERVICE OPERATOR HELPER ) Arrival Mode Ambulatory Transfer Assistance None Patient Identification Verified (Name & Yes ) Patient Requires Transmission-Based No Precautions Vital Signs Temperature (97.8 F-99.1 F) 98.1 F Temperature Source Temporal Pulse Rate (60-100) 66 Pulse Location Monitor Respiratory Rate (12-18) 16 Respiratory rate source Observation Oxygen Delivery Method Room Air Blood Pressure (90/60-120/80) 130/87 H Blood Pressure Mean 101 Source Monitor Position Sitting Blood Pressure Location Left Arm History Since Last Visit- (Skip if this is Patient's initial visit) Have you changed medications since your No last visit? Any new allergies or adverse reactions No Had a fall/change in ADL's that may No increase risk of falls Signs or symptoms of abuse and/or No neglect since last visit Have you been in the hospital since your No last visit? Has dressing in place as prescribed Yes Has compression in place as prescribed No Has offloadiing in place as prescribed N/A Experienced any changes in pain level or No management Left Footwear Regular Shoe Right Footwear Regular Shoe Pain Scale: 0-10 Numeric Is Patient Pain Free? Yes - Nurse 1 - General Ulcer Measurement Start: 11/11/24 14:32 Freq: Status: Active Protocol: Activity Type Activity Date Activity User E-sign Co-sign Detail Recorded Client Recorded Date Recorded By Document 11/11/24 14:33 KW [id number] 11/11/24 14:41 KW Document 11/18/24 10:15 KW [id number] 11/18/24 10:22 KW Document 11/25/24 14:43 KW [id number] 11/25/24 15:05 KW Document 12/02/24 13:40 BM [id number] 12/02/24 13:55 BMF 11/11/24 11/18/24 11/25/24 14:33 10:15 14:43 Wound Center Nurse 1 #4 Rt med le -Combined with other wound -Current Size (cm) - Length 3 -Current Size (cm) - Width 1.5 -Current Size (cm) - Depth 0.1 -Total Square Cm 4.5 -Date of Last Picture (Recall this 11/11/24 11/25/24 field) -Photo Taken -Epithelialization -Tunneling -Undermining/Tunneling -Circular Undermining -Exudate Amt Medium Medium Small -Exudate Type Serosanguineous Serosanguineous Serosanguineous -Wound Margin Distinct, Distinct, Distinct, Outline Outline Outline Attached Attached Attached -Granulation Amt Large (67-100%) Large (67-100%) Large (67-100%) -Granulation Quality Filer Red Filer -Slough/Fibrin -Necrosis Amt -Necrotic Tissue Type -Texture (Joyce-wound Skin Appearance) Assessed Assessed Assessed -Moisture (Joyce-wound Skin Appearance) Assessed Assessed Assessed -Color (Joyce-wound Skin Appearance) Assessed Assessed Assessed -Temperature (Joyce-wound Skin No Abnormality No Abnormality No Abnormality Appearance) (Pt Warm) (Pt Warm) (Pt Warm) -Tenderness on Palpation (Joyce-wound No No No Skin Appearance) -Ulcer Cleansing Rinsed/ Soap and Water Soap and Water Irrigated with Saline -Foul Odor after Cleansing No No No -Anesthetic Used 5% Lidocaine 5% Lidocaine 5% Lidocaine Gel Gel Gel 12/02/24 13:40 Wound Center Nurse 1 #4 Rt med le -Combined with other wound No -Current Size (cm) - Length 2.2 -Current Size (cm) - Width 2.3 -Current Size (cm) - Depth 0.1 -Total Square Cm 5.06 -Date of Last Picture (Recall this 12/02/24 field) -Photo Taken Yes -Epithelialization Medium 34-66% -Tunneling No -Undermining/Tunneling No -Circular Undermining No -Exudate Amt Medium -Exudate Type Serosanguineous -Wound Margin Flat & Intact -Granulation Amt Large (67-100%) -Granulation Quality Filer -Slough/Fibrin Yes -Necrosis Amt Small (1-33%) -Necrotic Tissue Type Adherent Slough -Texture (Joyce-wound Skin Appearance) Assessed -Moisture (Joyce-wound Skin Appearance) Assessed,Dry/ Scaly -Color (Joyce-wound Skin Appearance) Assessed -Temperature (Joyce-wound Skin No Abnormality Appearance) (Pt Warm) -Tenderness on Palpation (Joyce-wound No Skin Appearance) -Ulcer Cleansing Soap and Water -Foul Odor after Cleansing No -Anesthetic Used 5% Lidocaine Gel WC - Nurse 2 - General Ulcer CM Notes Start: 11/11/24 14:32 Freq: Status: Active Protocol: Activity Type Activity Date Activity User E-sign Co-sign Detail Recorded Client Recorded Date Recorded By Document 11/11/24 15:09 DS [id number] 11/11/24 15:12 DS Document 11/18/24 10:38 [id number] 11/18/24 10:40 Document 11/25/24 15:10 [facility] [id number] 11/25/24 15:18 [facility] Document 12/02/24 14:35 DS [id number] 12/02/24 14:36 DS 11/11/24 11/18/24 11/25/24 15:09 10:38 15:10 Wound Center Nurse 2 #4 Rt med le -Time 15:09 10:38 15:10 -Correct Patient Yes Yes -Correct Side, Site, Position Yes Yes -Correct Procedure Yes Yes -Procedure Performed Yes Yes No -Type of Procedure Debridement Debridement -Clinical Debridement Subcutaneous Subcutaneous -Tissue Removed Subcutaneous Subcutaneous -Post Debridement (cm) - Length 3.0 3.3 3.1 -Post Debridement (cm) - Width 2.6 3.0 2.8 -Post Debridement (cm) - Depth 0.1 0.1 0.1 -Total Square (Post) (cm) 7.80 9.90 8.68 -Area of Debridement (cm) - Length 3.0 3.3 3.1 -Area of Debridement (cm) - Width 2.6 3.0 2.8 -Total Square (Area) (cm) 7.80 9.90 8.68 -Tunneling No No No -Undermining/Tunneling No No No -Circular Undermining No No No -Wound/Ulcer Outcome Not Healed Not Healed Not Healed -Ulcer Cleansing gauze Rinsed/ JOYCE WOUND Irrigated with WASHED WELL W/ Saline NS -Foul Odor after Cleansing No No -Bioengineered Tissue No Yes -Type of Bioengineered Tissue Epifix Mesh -Expiration Date 04/09/29 -Product Lot Number [id number] -Percent Used 100 -Lot number of Saline Used [id number] -Bleeding Controlled with Pressure Pressure NA -Treatment Response Procedure Procedure Procedure Tolerated Well Tolerated Well Tolerated Well -Offloading No -Debridement - Subq, 1st 20sq cm Yes No -Apply Skin Sub - 1st 25 sq cm - Legs 1 -Epifix Mesh Application 1-4 (per sq 11 cm) -Wound Comment(s) EPIMESH INTACT, WILL LEAVE FOR ANOTHER WEEK. [place]ERIS, ADAPTIC TOUCH APPLIED. Pain Scale: 0-10 Numeric Is Patient Pain Free? Yes Yes Yes 12/02/24 14:35 Wound Center Nurse 2 #4 Rt med le -Time 14:35 -Correct Patient Yes -Correct Side, Site, Position Yes -Correct Procedure Yes -Procedure Performed Yes -Type of Procedure Debridement -Clinical Debridement Subcutaneous -Tissue Removed Subcutaneous -Post Debridement (cm) - Length 3.0 -Post Debridement (cm) - Width 2.5 -Post Debridement (cm) - Depth 0.1 -Total Square (Post) (cm) 7.50 -Area of Debridement (cm) - Length 3.0 -Area of Debridement (cm) - Width 2.5 -Total Square (Area) (cm) 7.50 -Tunneling No -Undermining/Tunneling No -Circular Undermining No -Wound/Ulcer Outcome Not Healed -Ulcer Cleansing GAUZE -Foul Odor after Cleansing No -Bioengineered Tissue Yes -Type of Bioengineered Tissue Epifix Mesh -Expiration Date 04/09/29 -Product Lot Number [id number] -Percent Used 100 -Lot number of Saline Used [id number] -Bleeding Controlled with Pressure -Treatment Response Procedure Tolerated Well -Offloading -Debridement - Subq, 1st 20sq cm No -Apply Skin Sub - 1st 25 sq cm - Legs 1 -Epifix Mesh Application 1-4 (per sq 11 cm) -Wound Comment(s) Pain Scale: 0-10 Numeric Is Patient Pain Free? Yes WC - Nurse 3 - General Ulcer D/C NN Start: 11/11/24 14:32 Freq: Status: Active Protocol: Activity Type Activity Date Activity User E-sign Co-sign Detail Recorded Client Recorded Date Recorded By Document 11/11/24 15:23 KW [id number] 11/11/24 15:24 KW Document 11/18/24 10:49 KW [id number] 11/18/24 10:50 KW Document 11/25/24 15:21 [facility] [id number] 11/25/24 15:22 [facility] Document 12/02/24 14:48 KW [id number] 12/02/24 14:48 KW 11/11/24 11/18/24 11/25/24 15:23 10:49 15:21 Wound Care Center Nurse 3 #4 Rt med le -Primary Dressing Applied AMD Dressing Silicone Border Silicone Border 4x4,Silicone Foam 6x6 Foam 6x6 Border Foam 6x6 -Other Dressing hydrogel then HYDROGEL amd pad -AMD Dressing 4x4 1 -Silicone Border Foam 6x6 1 1 1 LLE -Other PT REFUSES NEW TUBI. HAS MULTIPLES AT HOME SHE STATES Treatment Response Procedure Tolerated Well Pain Scale: 0-10 Numeric Is Patient Pain Free? Yes Yes Yes WC - Visit Discharge Discharge Condition Stable Stable Stable Ambulatory Status Walker Ambulatory Ambulatory Transportation Private Auto Private Auto Private Auto Medication Reconcilliation completed & No No provided to patient/care provider Clinical Summary of Care Provided Yes Yes 12/02/24 14:48 Wound Care Center Nurse 3 #4 Rt med le -Primary Dressing Applied Silicone Border Foam 6x6 -Other Dressing -AMD Dressing 4x4 -Silicone Border Foam 6x6 1 LLE -Other Treatment Response Pain Scale: 0-10 Numeric Is Patient Pain Free? Yes WC - Visit Discharge Discharge Condition Stable Ambulatory Status Ambulatory Transportation Private Auto Medication Reconcilliation completed & No provided to patient/care provider Clinical Summary of Care Provided Yes Charges/Coding Procedures Integumentary [id number]: [id number] Skin sub graft trnk/arm/leg Assessment/Plan Assessment/Plan (1) Non-pressure chronic ulcer of right calf with fat layer exposed: CODE(S): L97.212 - Non-pressure chronic ulcer of right calf with fat layer exposed (2) Non-pressure chronic ulcer of right lower leg with fat layer exposed: CODE(S): L97.912 - Non-pressure chronic ulcer of unspecified part of right lower leg with fat layer exposed (3) Traumatic open wound of right lower leg: CODE(S): S81.801A - Unspecified open wound, right lower leg, initial encounter QUALIFIERS: Encounter type: subsequent encounter Qualified Cod e(s): S81.801D - Unspecified open wound, right lower leg, subsequent encounter (4) Lumbar scoliosis: CODE(S): M41.9 - Scoliosis, unspecified QUALIFIERS: Scoliosis type: other secondary scoliosis Qualified Code(s): M41.56 - Other secondary scoliosis, lumbar region (5) Low back pain: CODE(S): M54.50 - Low back pain, unspecified (6) DDD (degenerative disc disease), lumbosacral: CODE(S): M51.37 - Other intervertebral disc degeneration, lumbosacral region (7) Hypothyroidism (acquired): CODE(S): E03.9 - Hypothyroidism, unspecified (8) Cataracts, bilateral: CODE(S): H26.9 - Unspecified cataract (9) History of tonsillectomy: CODE(S): Z90.89 - Acquired absence of other organs (10) History of IBS: CODE(S): Z87.19 - Personal history of other diseases of the digestive system (11) Former smoker: CODE(S): Z87.891 - Personal history of nicotine dependence (12) History of lumbar spinal fusion: CODE(S): Z98.1 - Arthrodesis status (13) History of hysterectomy: CODE(S): Z90.710 - Acquired absence of both cervix and uterus (14) History of cervical discectomy: CODE(S): Z98.890 - Other specified postprocedural states (15) History of total hip replacement: CODE(S): Z96.649 - Presence of unspecified artificial hip joint (16) Status post spinal disc removal: CODE(S): Z98.890 - Other specified postprocedural states PLAN: Plan This is a 74-year-old female who presented with traumatic wounds in both lower extremities. Although the patient does not relate significant swelling in her lower extremities, measures to prevent such swelling have been thoroughly discussed. The patient has been encouraged to elevate her lower extremities as much as possible. She has been advised to refrain from prolonged, idle sitting. She is to continue wearing her Tubigrips bilaterally on a daily basis. Activity has been encouraged. The patient has been encouraged to optimize her nutritional intake. The patient attests to the fact that her appetite is good, and she is consuming a well-balanced diet. The traumatic wounds in the left lower extremity remain completely healed and epithelialized. A traumatic wound persists on the right pretibial surface. An EpiFix allograft (#2) was applied to the right pretibial ulceration at this visit. It is to remain in place and undisturbed until the patient returns in 1 week. The patient will return in 1 week for reevaluation. Total time: 26 minutes
--- NOTE | 2024-12-07 18:12 | HP.PCM_ITS ---
History of Present Illness Date of Service: 12/02/24 Chief Complaint: Right lower extremity traumatic wound History of Wound: This is a 74-year-old female who has presented repeatedly with traumatic wounds to both lower extremities. A wound on the right pretibial surface persists, though all other lower extremity wounds have healed. The patient is mobile and active. She denies swelling in her legs. She sleeps on a flat surface at night. She denies a history of thrombophlebitis. The patient denies a history of congestive heart failure, myocardial infarction, diabetes mellitus, cerebrovascular accident, hypertension, renal disease, and pulmonary disease. She has a history of hypothyroidism. A limited venous duplex examination was performed on October 26, 2022, examining only the right lower extremity, and revealing no evidence of thrombophlebitis. Valvular competence was not fully evaluated. [facility] Medical History Non-pressure chronic ulcer of right calf with fat layer exposed Non-pressure chronic ulcer of right lower leg with fat layer exposed Traumatic open wound of right lower leg Traumatic open wound of left lower leg Non-pressure chronic ulcer of left lower leg with fat layer exposed Non-pressure chronic ulcer of right lower leg with fat layer exposed Traumatic open wound of right lower leg with delayed healing Traumatic open wound of left lower leg with delayed healing Wears glasses Anxiety Alcohol use History of steroid therapy Easy bruising Back pain Injury of back Migraine headache Syncope History of IBS Former smoker Leg cramps History of edema History of stress test Cataracts, bilateral Arthritis Anemia Vitamin D deficiency, unspecified Hypothyroidism Home Medications ?Medication ?Instructions ?Recorded ?Last Taken ?Type lidocaine 5 % topical patch 2 patch topical DAILY 04/10 08/24 1 Day Ago History ~09/21/17 meloxicam 15 mg tablet 15 mg PO QDAY 05/03/1709/22 History doxepin 10 mg capsule 10 mg PO QHS 12/16/19 Unknow n History folic acid 400 mcg tablet 0.4 mg PO DAILY@0800 0 Unknown History linaclotide 145 mcg capsule 145 mcg PO DAILY 12/16/19 Unknown History estradiol 0.1 mg/24 hr semiweekly 2 patch transdermal MOTH 03/15/20 Unknown History transdermal patch (Bessie) acetaminophen 500 mg tablet 1,000 mg PO BID 09/30/22 U nknown History vitamin B24-ptxstdg B1 100 mg-1 1 ml IM .QMO 01/06/22 Unknown History mg/mL intramuscular solution levothyroxine 50 mcg tablet 50 mcg PO DAILY 03/18/24 U nknown History gabapentin 100 mg capsule 100 mg PO BID 05/07/24 Unkno wn History loratadine 10 mg tablet 10 mg PO .prn 05/07/24 Unkno wn History sulfamethoxazole 800 1 tab PO Q12H #14 tabs 05/27 Unknown Rx mg-trimethoprim 160 mg tablet (Bactrim DS) cephalexin 500 mg capsule 500 mg PO 4X/DAY 07/08/24 Un known History doxycycline hyclate 100 mg tablet 100 mg PO BID Unknown History sulfamethoxazole 800 1 tab PO Q12H #14 tabs 07/08 Unknown Rx mg-trimethoprim 160 mg tablet (Bactrim DS) sulfamethoxazole 800 1 tab PO Q12H wound infectio n #14 09/10/24 Unknown Rx mg-trimethoprim 160 mg tablet tabs (Bactrim DS) Allergy/AdvReac Type Severity Reaction Status Date / Time No Known Allergies Allergy Verified 05/07/24 11:09 Family History Mother Rheumatoid arthritis Father Pancreatic cancer Cancer Grandfather Myocardial infarction Grandmother Thyroid disorder Surgical History Status post spinal disc removal History of tonsillectomy History of lumbar spinal fusion History of total hip replacement History of hysterectomy History of cervical discectomy Social History household members: spouse Smoking Status: Never smoker alcohol intake: current alcohol intake frequency: a few times a week Alcohol type: wine substance use type: does not use what type of physical activity do you participate in: other details: physical therapy frequency: 1-2 times per week Physical Exam Const alert, oriented x3, no apparent distress, average body habitus and no limitations Constitutional Narrative: The patient's BMI is 19.7. She is of thin body habitus. General Appearance: cooperative, comfortable, well kempt and well developed Orientation / Consciousness: awake, oriented to person, oriented to place and oriented to time Exam Limitations: no limitations HEENT normocephalic, head/scalp atraumatic and hearing grossly normal bilaterally Head and Scalp: normal to inspection, normocephalic and atraumatic Face and Sinus: normal facial exam Nose: external nose normal External Ear: external ears normal Eyes EOMs intact bilaterally General Eye: normal appearance of both eyes Neck full ROM Resp normal respiratory effort, normal air movement, no retractions and no use of accessory muscles Effort and Inspection: able to speak in complete sentences Extremity no clubbing, cyanosis or edema and no calf tenderness General Extremity: normal exam except as noted Skin Wound Narrative: The patient's lower extremities appear warm and well-perfused. Pedal pulses are easily palpable bilaterally. There is no significant swelling or edema in the patient's lower extremities. The wounds on the patient's left lower extremity remain completely healed and epithelialized. The traumatic wound on the patient's right pretibial surface appears pink and healthy in appearance, with remnants of an allograft which was placed 2 weeks ago. There is evidence of pink healthy granulation tissue. There is no sign of infection or cellulitis. Wound dimensions are documented elsewhere. The wound appears to be decreasing in size. Hair: normal Neuro oriented x3, CN's II-XII intact bilaterally, moves all extremities, no focal motor deficits and no sensory deficits noted Sensorium / Orientation: awake, alert, oriented to person, oriented to place and oriented to time Speech: speech normal Psych Appearance: grossly normal and appropriate Attitude: calm Activity / Motor Behavior: appropriate eye contact Speech: normal speech Mood & Affect: euthymic mood Thought Process: normal thought process Thought Content: normal thought content Attention / Concentration: attention grossly intact Debridement Note Debridement Note Wound debrided: Traumatic right pretibial wound Laterality: Right Type of Debridement: Excisional debridement Anesthesia Used: 5% Lidocaine Gel Depth: Down to and including healthy tissue and in the subcutaneous layer Percentage of wound debrided: 100 Instrument Used: 5mm curette Tissue Removed: Bioburden and remnants of a prior EpiFix allograft Severity: Fat Layer Exposed Amount of bleeding with debridement: Mild Bleeding Controlled with: Compression and gauze Patient tolerated procedure: Patient tolerated procedure well Debridement Free Text: The excisional debridement was well-tolerated. Following the debridement, an EpiFix allograft was applied. Based upon the wound dimensions, a 4.0 cm x 4.5 cm fenestrated EpiFix graft was selected for application. The EpiFix allograft was removed from its sterile packaging. It was applied topically to the wound in the appropriate orientation. 100% of the allograft was utilized. Adaptic Touch was then placed over the allograft, and was secured using Steri-Strips. Collagen hydrogel was applied over the Adaptic Touch, and a dry, sterile occlusive gauze dressing was applied. This represents the second such application of an EpiFix allograft at this site Post-Debridement Measurements and Additional Note: Post-Debridement Measurements/Treatment - Nurse 1 - General Ulcer Assessment Start: 11/11/24 14:32 Freq: Status: Active Protocol: JOE.LOWSTEVENT Activity Type Activity Date Activity User E-sign Co-sign Detail Recorded Client Recorded Date Recorded By Document 11/11/24 14:33 KW [id number] 11/11/24 14:41 KW Document 11/18/24 10:15 KW [id number] 11/18/24 10:22 KW Document 11/25/24 14:43 KW [id number] 11/25/24 15:05 KW Document 12/02/24 13:40 BMF [id number] 12/02/24 13:55 BMF 11/11/24 11/18/24 11/25/24 14:33 10:15 14:43 - Today's Visit Information Type of service Follow-up Visit Follow-up Visit Follow-up Visit (Physician/MANAGER CONTRACTING (Physician/MANAGER CONTRACTING (Physician/MANAGER CONTRACTING ) ) ) Arrival Mode Ambulatory Ambulatory Ambulatory Transfer Assistance Patient Identification Verified (Name & Yes Yes Yes ) Patient Requires Transmission-Based Precautions Vital Signs Temperature (97.8 F-99.1 F) 97.4 F L 97.9 F 97.9 F Temperature Source Temporal Temporal Temporal Pulse Rate (60-100) 65 72 65 Pulse Location Monitor Monitor Monitor Respiratory Rate (12-18) 18 18 18 Respiratory rate source Observation Observation Observation Oxygen Delivery Method Room Air Room Air Room Air Blood Pressure (90/60-120/80) 131/65 H 109/71 126/77 H Blood Pressure Mean 87 83 93 Source Monitor Monitor Monitor Position Sitting Semi-Fowlers Semi-Fowlers Blood Pressure Location Left Arm Right Arm Left Arm History Since Last Visit- (Skip if this is Patient's initial visit) Have you changed medications since your No No No last visit? Any new allergies or adverse reactions No No No Had a fall/change in ADL's that may No No No increase risk of falls Signs or symptoms of abuse and/or No No No neglect since last visit Have you been in the hospital since your No No No last visit? Has dressing in place as prescribed Yes Yes Yes Has compression in place as prescribed Yes Yes N/A Has offloadiing in place as prescribed N/A N/A N/A Experienced any changes in pain level or No No No management Left Footwear Regular Shoe Regular Shoe Regular Shoe Right Footwear Regular Shoe Regular Shoe Regular Shoe Pain Scale: 0-10 Numeric Is Patient Pain Free? Yes Yes Yes 12/02/24 13:40 - Today's Visit Information Type of service Follow-up Visit (Physician/MANAGER CONTRACTING ) Arrival Mode Ambulatory Transfer Assistance None Patient Identification Verified (Name & Yes ) Patient Requires Transmission-Based No Precautions Vital Signs Temperature (97.8 F-99.1 F) 98.1 F Temperature Source Temporal Pulse Rate (60-100) 66 Pulse Location Monitor Respiratory Rate (12-18) 16 Respiratory rate source Observation Oxygen Delivery Method Room Air Blood Pressure (90/60-120/80) 130/87 H Blood Pressure Mean 101 Source Monitor Position Sitting Blood Pressure Location Left Arm History Since Last Visit- (Skip if this is Patient's initial visit) Have you changed medications since your No last visit? Any new allergies or adverse reactions No Had a fall/change in ADL's that may No increase risk of falls Signs or symptoms of abuse and/or No neglect since last visit Have you been in the hospital since your No last visit? Has dressing in place as prescribed Yes Has compression in place as prescribed No Has offloadiing in place as prescribed N/A Experienced any changes in pain level or No management Left Footwear Regular Shoe Right Footwear Regular Shoe Pain Scale: 0-10 Numeric Is Patient Pain Free? Yes - Nurse 1 - General Ulcer Measurement Start: 11/11/24 14:32 Freq: Status: Active Protocol: Activity Type Activity Date Activity User E-sign Co-sign Detail Recorded Client Recorded Date Recorded By Document 11/11/24 14:33 KW [id number] 11/11/24 14:41 KW Document 11/18/24 10:15 KW [id number] 11/18/24 10:22 KW Document 11/25/24 14:43 KW [id number] 11/25/24 15:05 KW Document 12/02/24 13:40 BM [id number] 12/02/24 13:55 BMF 11/11/24 11/18/24 11/25/24 14:33 10:15 14:43 Wound Center Nurse 1 #4 Rt med le -Combined with other wound -Current Size (cm) - Length 3 -Current Size (cm) - Width 1.5 -Current Size (cm) - Depth 0.1 -Total Square Cm 4.5 -Date of Last Picture (Recall this 11/11/24 11/25/24 field) -Photo Taken -Epithelialization -Tunneling -Undermining/Tunneling -Circular Undermining -Exudate Amt Medium Medium Small -Exudate Type Serosanguineous Serosanguineous Serosanguineous -Wound Margin Distinct, Distinct, Distinct, Outline Outline Outline Attached Attached Attached -Granulation Amt Large (67-100%) Large (67-100%) Large (67-100%) -Granulation Quality [place] -Slough/Fibrin -Necrosis Amt -Necrotic Tissue Type -Texture (Joyce-wound Skin Appearance) Assessed Assessed Assessed -Moisture (Joyce-wound Skin Appearance) Assessed Assessed Assessed -Color (Joyce-wound Skin Appearance) Assessed Assessed Assessed -Temperature (Joyce-wound Skin No Abnormality No Abnormality No Abnormality Appearance) (Pt Warm) (Pt Warm) (Pt Warm) -Tenderness on Palpation (Joyce-wound No No No Skin Appearance) -Ulcer Cleansing Rinsed/ Soap and Water Soap and Water Irrigated with Saline -Foul Odor after Cleansing No No No -Anesthetic Used 5% Lidocaine 5% Lidocaine 5% Lidocaine Gel Gel Gel 12/02/24 13:40 Wound Center Nurse 1 #4 Rt med le -Combined with other wound No -Current Size (cm) - Length 2.2 -Current Size (cm) - Width 2.3 -Current Size (cm) - Depth 0.1 -Total Square Cm 5.06 -Date of Last Picture (Recall this 12/02/24 field) -Photo Taken Yes -Epithelialization Medium 34-66% -Tunneling No -Undermining/Tunneling No -Circular Undermining No -Exudate Amt Medium -Exudate Type Serosanguineous -Wound Margin Flat & Intact -Granulation Amt Large (67-100%) -Granulation Quality [place] -Slough/Fibrin Yes -Necrosis Amt Small (1-33%) -Necrotic Tissue Type Adherent Slough -Texture (Joyce-wound Skin Appearance) Assessed -Moisture (Joyce-wound Skin Appearance) Assessed,Dry/ Scaly -Color (Joyce-wound Skin Appearance) Assessed -Temperature (Joyce-wound Skin No Abnormality Appearance) (Pt Warm) -Tenderness on Palpation (Joyce-wound No Skin Appearance) -Ulcer Cleansing Soap and Water -Foul Odor after Cleansing No -Anesthetic Used 5% Lidocaine Gel WC - Nurse 2 - General Ulcer CM Notes Start: 11/11/24 14:32 Freq: Status: Active Protocol: Activity Type Activity Date Activity User E-sign Co-sign Detail Recorded Client Recorded Date Recorded By Document 11/11/24 15:09 DS [id number] 11/11/24 15:12 DS Document 11/18/24 10:38 [id number] 11/18/24 10:40 Document 11/25/24 15:10 [facility] [id number] 11/25/24 15:18 [facility] Document 12/02/24 14:35 DS [id number] 12/02/24 14:36 DS 11/11/24 11/18/24 11/25/24 15:09 10:38 15:10 Wound Center Nurse 2 #4 Rt med le -Time 15:09 10:38 15:10 -Correct Patient Yes Yes -Correct Side, Site, Position Yes Yes -Correct Procedure Yes Yes -Procedure Performed Yes Yes No -Type of Procedure Debridement Debridement -Clinical Debridement Subcutaneous Subcutaneous -Tissue Removed Subcutaneous Subcutaneous -Post Debridement (cm) - Length 3.0 3.3 3.1 -Post Debridement (cm) - Width 2.6 3.0 2.8 -Post Debridement (cm) - Depth 0.1 0.1 0.1 -Total Square (Post) (cm) 7.80 9.90 8.68 -Area of Debridement (cm) - Length 3.0 3.3 3.1 -Area of Debridement (cm) - Width 2.6 3.0 2.8 -Total Square (Area) (cm) 7.80 9.90 8.68 -Tunneling No No No -Undermining/Tunneling No No No -Circular Undermining No No No -Wound/Ulcer Outcome Not Healed Not Healed Not Healed -Ulcer Cleansing gauze Rinsed/ JOYCE WOUND Irrigated with WASHED WELL W/ Saline NS -Foul Odor after Cleansing No No -Bioengineered Tissue No Yes -Type of Bioengineered Tissue Epifix Mesh -Expiration Date 04/09/29 -Product Lot Number [id number] -Percent Used 100 -Lot number of Saline Used [id number] -Bleeding Controlled with Pressure Pressure NA -Treatment Response Procedure Procedure Procedure Tolerated Well Tolerated Well Tolerated Well -Offloading No -Debridement - Subq, 1st 20sq cm Yes No -Apply Skin Sub - 1st 25 sq cm - Legs 1 -Epifix Mesh Application 1-4 (per sq 11 cm) -Wound Comment(s) EPIMESH INTACT, WILL LEAVE FOR ANOTHER WEEK. [place], ADAPTIC TOUCH APPLIED. Pain Scale: 0-10 Numeric Is Patient Pain Free? Yes Yes Yes 12/02/24 14:35 Wound Center Nurse 2 #4 Rt med le -Time 14:35 -Correct Patient Yes -Correct Side, Site, Position Yes -Correct Procedure Yes -Procedure Performed Yes -Type of Procedure Debridement -Clinical Debridement Subcutaneous -Tissue Removed Subcutaneous -Post Debridement (cm) - Length 3.0 -Post Debridement (cm) - Width 2.5 -Post Debridement (cm) - Depth 0.1 -Total Square (Post) (cm) 7.50 -Area of Debridement (cm) - Length 3.0 -Area of Debridement (cm) - Width 2.5 -Total Square (Area) (cm) 7.50 -Tunneling No -Undermining/Tunneling No -Circular Undermining No -Wound/Ulcer Outcome Not Healed -Ulcer Cleansing GAUZE -Foul Odor after Cleansing No -Bioengineered Tissue Yes -Type of Bioengineered Tissue Epifix Mesh -Expiration Date 04/09/29 -Product Lot Number [id number] -Percent Used 100 -Lot number of Saline Used [id number] -Bleeding Controlled with Pressure -Treatment Response Procedure Tolerated Well -Offloading -Debridement - Subq, 1st 20sq cm No -Apply Skin Sub - 1st 25 sq cm - Legs 1 -Epifix Mesh Application 1-4 (per sq 11 cm) -Wound Comment(s) Pain Scale: 0-10 Numeric Is Patient Pain Free? Yes WC - Nurse 3 - General Ulcer D/C NN Start: 11/11/24 14:32 Freq: Status: Active Protocol: Activity Type Activity Date Activity User E-sign Co-sign Detail Recorded Client Recorded Date Recorded By Document 11/11/24 15:23 KW [id number] 11/11/24 15:24 KW Document 11/18/24 10:49 KW [id number] 11/18/24 10:50 KW Document 11/25/24 15:21 [facility] [id number] 11/25/24 15:22 [facility] Document 12/02/24 14:48 KW [id number] 12/02/24 14:48 KW 11/11/24 11/18/24 11/25/24 15:23 10:49 15:21 Wound Care Center Nurse 3 #4 Rt med le -Primary Dressing Applied AMD Dressing Silicone Border Silicone Border 4x4,Silicone Foam 6x6 Foam 6x6 Border Foam 6x6 -Other Dressing hydrogel then HYDROGEL amd pad -AMD Dressing 4x4 1 -Silicone Border Foam 6x6 1 1 1 LLE -Other PT REFUSES NEW TUBI. HAS MULTIPLES AT HOME SHE STATES Treatment Response Procedure Tolerated Well Pain Scale: 0-10 Numeric Is Patient Pain Free? Yes Yes Yes WC - Visit Discharge Discharge Condition Stable Stable Stable Ambulatory Status Walker Ambulatory Ambulatory Transportation Private Auto Private Auto Private Auto Medication Reconcilliation completed & No No provided to patient/care provider Clinical Summary of Care Provided Yes Yes 12/02/24 14:48 Wound Care Center Nurse 3 #4 Rt med le -Primary Dressing Applied Silicone Border Foam 6x6 -Other Dressing -AMD Dressing 4x4 -Silicone Border Foam 6x6 1 LLE -Other Treatment Response Pain Scale: 0-10 Numeric Is Patient Pain Free? Yes WC - Visit Discharge Discharge Condition Stable Ambulatory Status Ambulatory Transportation Private Auto Medication Reconcilliation completed & No provided to patient/care provider Clinical Summary of Care Provided Yes Charges/Coding Procedures Integumentary [id number]: [id number] Skin sub graft trnk/arm/leg Assessment/Plan Assessment/Plan (1) Non-pressure chronic ulcer of right calf with fat layer exposed: CODE(S): L97.212 - Non-pressure chronic ulcer of right calf with fat layer exposed (2) Non-pressure chronic ulcer of right lower leg with fat layer exposed: CODE(S): L97.912 - Non-pressure chronic ulcer of unspecified part of right lower leg with fat layer exposed (3) Traumatic open wound of right lower leg: CODE(S): S81.801A - Unspecified open wound, right lower leg, initial encounter QUALIFIERS: Encounter type: subsequent encounter Qualified Cod e(s): S81.801D - Unspecified open wound, right lower leg, subsequent encounter (4) Lumbar scoliosis: CODE(S): M41.9 - Scoliosis, unspecified QUALIFIERS: Scoliosis type: other secondary scoliosis Qualified Code(s): M41.56 - Other secondary scoliosis, lumbar region (5) Low back pain: CODE(S): M54.50 - Low back pain, unspecified (6) DDD (degenerative disc disease), lumbosacral: CODE(S): M51.37 - Other intervertebral disc degeneration, lumbosacral region (7) Hypothyroidism (acquired): CODE(S): E03.9 - Hypothyroidism, unspecified (8) Cataracts, bilateral: CODE(S): H26.9 - Unspecified cataract (9) History of tonsillectomy: CODE(S): Z90.89 - Acquired absence of other organs (10) History of IBS: CODE(S): Z87.19 - Personal history of other diseases of the digestive system (11) Former smoker: CODE(S): Z87.891 - Personal history of nicotine dependence (12) History of lumbar spinal fusion: CODE(S): Z98.1 - Arthrodesis status (13) History of hysterectomy: CODE(S): Z90.710 - Acquired absence of both cervix and uterus (14) History of cervical discectomy: CODE(S): Z98.890 - Other specified postprocedural states (15) History of total hip replacement: CODE(S): Z96.649 - Presence of unspecified artificial hip joint (16) Status post spinal disc removal: CODE(S): Z98.890 - Other specified postprocedural states PLAN: Plan This is a 74-year-old female who presented with traumatic wounds in both lower extremities. Although the patient does not relate significant swelling in her lower extremities, measures to prevent such swelling have been thoroughly discussed. The patient has been encouraged to elevate her lower extremities as much as possible. She has been advised to refrain from prolonged, idle sitting. She is to continue wearing her Tubigrips bilaterally on a daily basis. Activity has been encouraged. The patient has been encouraged to optimize her nutritional intake. The patient attests to the fact that her appetite is good, and she is consuming a well-balanced diet. The traumatic wounds in the left lower extremity remain completely healed and epithelialized. A traumatic wound persists on the right pretibial surface. An EpiFix allograft (#2) was applied to the right pretibial ulceration at this visit. It is to remain in place and undisturbed until the patient returns in 1 week. The patient will return in 1 week for reevaluation. Total time: 26 minutes
== END 2024-12-07 23:59 | disposition home or self-care (01) ==
LOC: WC 13:30
PROVIDERS: PCP Family Medicine Geriatric Medicine; Referring Provider Family Medicine Geriatric Medicine; Visit Provider Surgery
DX: L97.212 Non-pressure chronic ulcer of right calf with fat layer exposed (principal); L97.912 Non-pressure chronic ulcer of unspecified part of right lower leg with fat layer exposed; Z90.710 Acquired absence of both cervix and uterus; H26.9 Unspecified cataract; M51.370 Other intervertebral disc degeneration, lumbosacral region with discogenic back pain only; Z98.1 Arthrodesis status; Z87.891 Personal history of nicotine dependence; E03.9 Hypothyroidism, unspecified; M41.56 Other secondary scoliosis, lumbar region; S81.801D Unspecified open wound, right lower leg, subsequent encounter; Z90.89 Acquired absence of other organs; Z87.19 Personal history of other diseases of the digestive system; Z98.890 Other specified postprocedural states
CPT/HCPCS: 11042; 15271; 99213; Q4186; G0463

== ENCOUNTER 2025-01-06 14:30 | Outpatient (RCR) | payer MEDICARE, OTHER, SELFPAY ==
[2024-12-09 14:33] VITALS: BP 136/75; PULSE 61; RESP 18; TEMP 35.8
[2024-12-16 14:41] VITALS: BP 139/77; PULSE 82; RESP 18; TEMP 36.1
[2024-12-23 14:03] VITALS: BP 136/77; PULSE 68; RESP 18; TEMP 36.6
[2024-12-30 10:01] VITALS: BP 136/69; PULSE 60; RESP 16; TEMP 36.2
[2025-01-06 14:41] VITALS: BP 113/56; PULSE 66; RESP 18; TEMP 36.2
== END 2025-01-06 23:59 | disposition home or self-care (01) ==
LOC: WC 14:30
PROVIDERS: PCP Family Medicine Geriatric Medicine; Referring Provider Family Medicine Geriatric Medicine; Visit Provider Surgery
DX: L97.212 Non-pressure chronic ulcer of right calf with fat layer exposed (principal); L97.912 Non-pressure chronic ulcer of unspecified part of right lower leg with fat layer exposed; Z87.891 Personal history of nicotine dependence; H26.9 Unspecified cataract; M51.370 Other intervertebral disc degeneration, lumbosacral region with discogenic back pain only; G89.29 Other chronic pain; E03.9 Hypothyroidism, unspecified; Z98.1 Arthrodesis status; Z90.710 Acquired absence of both cervix and uterus; S81.801D Unspecified open wound, right lower leg, subsequent encounter; M41.56 Other secondary scoliosis, lumbar region; Z90.89 Acquired absence of other organs; Z87.19 Personal history of other diseases of the digestive system; Z98.890 Other specified postprocedural states; Z96.649 Presence of unspecified artificial hip joint
CPT/HCPCS: 15271; Q4186

== ENCOUNTER 2025-02-03 14:30 | Outpatient (RCR) | payer MEDICARE, OTHER, SELFPAY ==
[2025-01-13 14:53] VITALS: BP 149/87; PULSE 64; RESP 18; TEMP 36.2
--- NOTE | 2025-01-14 13:58 | WC ---
PHOTO 01/13/25
--- NOTE | 2025-01-15 13:40 | PCM.WC.HP ---
History of Present Illness Date of Service: 01/13/25 Chief Complaint: Right lower extremity traumatic wound History of Wound: This is a 74-year-old female who has presented repeatedly with traumatic wounds to both lower extremities. A wound on the right pretibial surface persists, though all other lower extremity wounds have healed. The patient is mobile and active. She denies swelling in her legs. She sleeps on a flat surface at night. She denies a history of thrombophlebitis. The patient denies a history of congestive heart failure, myocardial infarction, diabetes mellitus, cerebrovascular accident, hypertension, renal disease, and pulmonary disease. She has a history of hypothyroidism. A limited venous duplex examination was performed on October 26, 2022, examining only the right lower extremity, and revealing no evidence of thrombophlebitis. Valvular competence was not fully evaluated. [facility] Medical History Non-pressure chronic ulcer of right calf with fat layer exposed Non-pressure chronic ulcer of right lower leg with fat layer exposed Traumatic open wound of right lower leg Traumatic open wound of left lower leg Non-pressure chronic ulcer of left lower leg with fat layer exposed Non-pressure chronic ulcer of right lower leg with fat layer exposed Traumatic open wound of right lower leg with delayed healing Traumatic open wound of left lower leg with delayed healing Wears glasses Anxiety Alcohol use History of steroid therapy Easy bruising Back pain Injury of back Migraine headache Syncope History of IBS Former smoker Leg cramps History of edema History of stress test Cataracts, bilateral Arthritis Anemia Vitamin D deficiency, unspecified Hypothyroidism Home Medications ?Medication ?Instructions ?Recorded ?Last Taken ?Type lidocaine 5 % topical patch 2 patch topical DAILY 05/03/17 1 Day Ago History ~09/21/17 meloxicam 15 mg tablet 15 mg PO QDAY 05/03/17 09/22/17 History doxepin 10 mg capsule 10 mg PO QHS 12/16/19 Unknown History folic acid 400 mcg tablet 0.4 mg PO DAILY@0800 12/16/19 Unknown History linaclotide 145 mcg capsule 145 mcg PO DAILY 12/16/19 Unknown History estradiol 0.1 mg/24 hr semiweekly 2 patch transdermal MOTH 03/15/20 Unknown History transdermal patch (Bessie) acetaminophen 500 mg tablet 1,000 mg PO BID 01/06/22 Unknown History vitamin [id number] B1 100 mg-1 1 ml IM .QMO 01/06/22 Unknown History mg/mL intramuscular solution levothyroxine 50 mcg tablet 50 mcg PO DAILY 03/18/24 Unknown History gabapentin 100 mg capsule 100 mg PO BID 05/07/24 Unknown History loratadine 10 mg tablet 10 mg PO .prn 05/07/24 Unknown History sulfamethoxazole 800 1 tab PO Q12H #14 tabs 05/27/24 Unknown Rx mg-trimethoprim 160 mg tablet (Bactrim DS) cephalexin 500 mg capsule 500 mg PO 4X/DAY 07/08/24 Unknown History doxycycline hyclate 100 mg tablet 100 mg PO BID 07/08/24 Unknown History sulfamethoxazole 800 1 tab PO Q12H #14 tabs 07/08/24 Unknown Rx mg-trimethoprim 160 mg tablet (Bactrim DS) sulfamethoxazole 800 1 tab PO Q12H wound infection #14 09/10/24 Unknown Rx mg-trimethoprim 160 mg tablet tabs (Bactrim DS) Allergy/AdvReac Type Severity Reaction Status Date / Time No Known Allergies Allergy Verified 05/07/24 11:09 Family History Mother Rheumatoid arthritis Father Pancreatic cancer Cancer Grandfather Myocardial infarction Grandmother Thyroid disorder Surgical History Status post spinal disc removal History of tonsillectomy History of lumbar spinal fusion History of total hip replacement History of hysterectomy History of cervical discectomy Social History household members: spouse Smoking Status: Never smoker alcohol intake: current alcohol intake frequency: a few times a week Alcohol type: wine substance use type: does not use what type of physical activity do you participate in: other details: physical therapy frequency: 1-2 times per week Physical Exam Const alert, oriented x3, no apparent distress, average body habitus and no limitations Constitutional Narrative: The patient's BMI is 19.7. She is of thin body habitus. General Appearance: cooperative, comfortable, well kempt and well developed Orientation / Consciousness: awake, oriented to person, oriented to place and oriented to time Exam Limitations: no limitations HEENT normocephalic, head/scalp atraumatic and hearing grossly normal bilaterally Head and Scalp: normal to inspection, normocephalic and atraumatic Face and Sinus: normal facial exam Nose: external nose normal External Ear: external ears normal Eyes EOMs intact bilaterally General Eye: normal appearance of both eyes Neck full ROM Resp normal respiratory effort, normal air movement, no retractions and no use of accessory muscles Effort and Inspection: able to speak in complete sentences Extremity no clubbing, cyanosis or edema and no calf tenderness Skin Wound Narrative: The patient's lower extremities appear warm and well-perfused. Pedal pulses are easily palpable bilaterally. There is no significant swelling or edema in the patient's lower extremities. The wounds on the patient's left lower extremity remain completely healed and epithelialized. The traumatic wound on the patient's right pretibial surface appears pink and healthy in appearance with a small amount of bioburden. There is evidence of granulation tissue and peripheral epithelialization. There is no sign of infection or cellulitis. Wound dimensions are documented elsewhere. The wound has changed in size very little within the last week. Wound margins are well beveled. Hair: normal Neuro oriented x3, CN's II-XII intact bilaterally, moves all extremities, no focal motor deficits and no sensory deficits noted Sensorium / Orientation: awake, alert, oriented to person, oriented to place and oriented to time Speech: speech normal Psych Appearance: grossly normal and appropriate Attitude: calm Activity / Motor Behavior: appropriate eye contact Speech: normal speech Mood & Affect: euthymic mood Thought Process: normal thought process Thought Content: normal thought content Attention / Concentration: attention grossly intact Memory / Cognition: memory grossly intact Insight: insight good Judgement: judgement good Debridement Note Debridement Note Wound debrided: Traumatic right pretibial wound Laterality: Right Type of Debridement: Excisional debridement Anesthesia Used: 5% Lidocaine Gel and Cetacaine Depth: Down to and including healthy tissue and in the subcutaneous layer Percentage of wound debrided: 100 Instrument Used: 5mm curette Tissue Removed: Bioburden Severity: Fat Layer Exposed Amount of bleeding with debridement: Mild Bleeding Controlled with: Compression and gauze Patient tolerated procedure: Patient tolerated procedure well Debridement Free Text: The excisional debridement was well-tolerated. Following the debridement, an EpiFix allograft was applied. Based upon the wound dimensions, a 4 cm x 4.5 cm EpiMesh graft was selected for application. The EpiMesh allograft was removed from its sterile packaging. It was applied topically to the wound in the appropriate orientation. 100% of the allograft was utilized through stacking. The allograft covered 100% of the wound surface. Adaptic Touch was then placed over the allograft, and was secured using Steri-Strips. Collagen hydrogel was applied over the Adaptic Touch, and a dry, sterile occlusive gauze dressing was applied. This represents the 8th such application of an allograft at this site. Post-Debridement Measurements and Additional Note: Post-Debridement Measurements/Treatment - Nurse 1 - General Ulcer Assessment Start: 01/13/25 14:53 Freq: Status: Active Protocol: QUIANA Activity Type Activity Date Activity User E-sign Co-sign Detail Recorded Client Recorded Date Recorded By Document 01/13/25 14:53 RB [id number] 01/13/25 14:55 RB 01/13/25 14:53 WC - Today's Visit Information Type of service Follow-up Visit (Physician/CRUSHER [facility]SEMBLER ) Arrival Mode Ambulatory Transfer Assistance None Patient Identification Verified (Name & Yes ) Patient Requires Transmission-Based No Precautions Vital Signs Temperature (97.8 F-99.1 F) 97.1 F L Temperature Source Temporal Pulse Rate (60-100) 64 Pulse Location Monitor Respiratory Rate (12-18) 18 Respiratory rate source Observation Blood Pressure (90/60-120/80) 149/87 H Blood Pressure Mean 107 Source Monitor Position Semi-Fowlers Blood Pressure Location Left Arm History Since Last Visit- (Skip if this is Patient's initial visit) Have you changed medications since your No last visit? Any new allergies or adverse reactions No Had a fall/change in ADL's that may No increase risk of falls Signs or symptoms of abuse and/or No neglect since last visit Have you been in the hospital since your No last visit? Has dressing in place as prescribed Yes Has compression in place as prescribed Yes Has offloadiing in place as prescribed N/A Experienced any changes in pain level or No management Pain Scale: 0-10 Numeric Is Patient Pain Free? Yes - Nurse 1 - General Ulcer Measurement Start: 01/13/25 14:53 Freq: Status: Active Protocol: Activity Type Activity Date Activity User E-sign Co-sign Detail Recorded Client Recorded Date Recorded By Document 01/13/25 14:53 APOORVA [id number] 01/13/25 14:55 RB 01/13/25 14:53 Wound Center Nurse 1 #4 Rt med le -Combined with other wound No -Current Size (cm) - Length 2.5 -Current Size (cm) - Width 1.9 -Current Size (cm) - Depth 0.1 -Total Square Cm 4.75 -Photo Taken Yes -Tunneling No -Undermining/Tunneling No -Circular Undermining No -Exudate Amt Medium -Exudate Type Serosanguineous -Wound Margin Distinct, Outline Attached -Granulation Amt Medium (34-66%) -Granulation Quality Sanborn -Slough/Fibrin Yes -Necrosis Amt Medium (34-66%) -Necrotic Tissue Type Adherent Slough -Structure Exposed N/A -Texture (Joyce-wound Skin Appearance) Friable -Moisture (Joyce-wound Skin Appearance) Assessed -Color (Joyce-wound Skin Appearance) Assessed -Temperature (Joyce-wound Skin No Abnormality Appearance) (Pt Warm) -Tenderness on Palpation (Joyce-wound No Skin Appearance) -Ulcer Cleansing Wound Cleanser -Foul Odor after Cleansing No -Anesthetic Used 5% Lidocaine Gel Lower Limb Edema Present Yes Right Calf (cm) 28.2 Right Ankle (cm) 17 WC - Nurse 2 - General Ulcer CM Notes Start: 01/13/25 14:53 Freq: Status: Active Protocol: Activity Type Activity Date Activity User E-sign Co-sign Detail Recorded Client Recorded Date Recorded By Document 01/13/25 15:14 JAIDEN [id number] 01/13/25 15:16 JAIDEN 01/13/25 15:14 Wound Center Nurse 2 #4 Rt med le -Time 15:14 -Correct Patient Yes -Correct Side, Site, Position Yes -Correct Procedure Yes -Procedure Performed Yes -Type of Procedure Debridement -Clinical Debridement Subcutaneous -Tissue Removed Subcutaneous -Post Debridement (cm) - Length 2.7 -Post Debridement (cm) - Width 2 -Post Debridement (cm) - Depth 0.1 -Total Square (Post) (cm) 5.4 -Area of Debridement (cm) - Length 2.7 -Area of Debridement (cm) - Width 2 -Total Square (Area) (cm) 5.4 -Tunneling No -Undermining/Tunneling No -Circular Undermining No -Wound/Ulcer Outcome Not Healed -Ulcer Cleansing Rinsed/ Irrigated with Saline -Foul Odor after Cleansing No -Bioengineered Tissue Yes -Type of Bioengineered Tissue Epifix Mesh -Expiration Date 07/08/29 -Product Lot Number [id number] -Percent Used 100 -Lot number of Saline Used [id number] -Bleeding Controlled with Pressure -Treatment Response Procedure Tolerated Well -Offloading No -Debridement - Subq, 1st 20sq cm No -Apply Skin Sub - 1st 25 sq cm - Legs 1 -Epifix Mesh Application 1-4 (per sq 11 cm) Pain Scale: 0-10 Numeric Is Patient Pain Free? Yes WC - Nurse 3 - General Ulcer D/C NN Start: 01/13/25 14:53 Freq: Status: Active Protocol: Activity Type Activity Date Activity User E-sign Co-sign Detail Recorded Client Recorded Date Recorded By Document 01/13/25 15:24 ML [id number] 01/13/25 15:25 ML 01/13/25 15:24 Wound Care Center Nurse 3 #4 Rt med le -Primary Dressing Applied Silicone Border Foam 6x6 -Silicone Border Foam 6x6 1 Pain Scale: 0-10 Numeric Is Patient Pain Free? Yes Charges/Coding Procedures Integumentary [id number]: [id number] Skin sub graft trnk/arm/leg Assessment/Plan Assessment/Plan (1) Non-pressure chronic ulcer of right calf with fat layer exposed: CODE(S): L97.212 - Non-pressure chronic ulcer of right calf with fat layer exposed (2) Non-pressure chronic ulcer of right lower leg with fat layer exposed: CODE(S): L97.912 - Non-pressure chronic ulcer of unspecified part of right lower leg with fat layer exposed (3) Traumatic open wound of right lower leg: CODE(S): S81.801A - Unspecified open wound, right lower leg, initial encounter QUALIFIERS: Encounter type: subsequent encounter Qualified Code(s): S81.801D - Unspecified open wound, right lower leg, subsequent encounter (4) Lumbar scoliosis: CODE(S): M41.9 - Scoliosis, unspecified QUALIFIERS: Scoliosis type: other secondary scoliosis Qualified Code(s): M41.56 - Other secondary scoliosis, lumbar region (5) Low back pain: CODE(S): M54.50 - Low back pain, unspecified QUALIFIERS: Chronicity: chronic Back pain laterality: unspecified Sciatica presence: unspecified whether sciatica present Qualified Code(s): M54.50 - Low back pain, unspecified; G89.29 - Other chronic pain (6) DDD (degenerative disc disease), lumbosacral: CODE(S): M51.37 - Other intervertebral disc degeneration, lumbosacral region QUALIFIERS: Disc-related pain type: unspecified whether pain present Qualified Code(s): M51.379 - Other intervertebral disc degeneration, lumbosacral region without mention of lumbar back pain or lower extremity pain (7) Hypothyroidism (acquired): CODE(S): E03.9 - Hypothyroidism, unspecified (8) Cataracts, bilateral: CODE(S): H26.9 - Unspecified cataract QUALIFIERS: Cataract type: unspecified Qualified Code(s): H26.9 - Unspecified cataract (9) History of tonsillectomy: CODE(S): Z90.89 - Acquired absence of other organs (10) History of IBS: CODE(S): Z87.19 - Personal history of other diseases of the digestive system (11) Former smoker: CODE(S): Z87.891 - Personal history of nicotine dependence (12) History of lumbar spinal fusion: CODE(S): Z98.1 - Arthrodesis status (13) History of hysterectomy: CODE(S): Z90.710 - Acquired absence of both cervix and uterus (14) History of cervical discectomy: CODE(S): Z98.890 - Other specified postprocedural states (15) History of total hip replacement: CODE(S): Z96.649 - Presence of unspecified artificial hip joint QUALIFIERS: Laterality: unspecified laterality Qualified Code(s): Z96.649 - Presence of unspecified artificial hip joint (16) Status post spinal disc removal: CODE(S): Z98.890 - Other specified postprocedural states PLAN: Plan This is a 74-year-old female who presented with traumatic wounds in both lower extremities. Although the patient does not relate significant swelling in her lower extremities, measures to prevent such swelling have been thoroughly discussed. The patient has been encouraged to elevate her lower extremities as much as possible. She has been advised to refrain from prolonged, idle sitting. She is to continue wearing her Tubigrips bilaterally on a daily basis. Activity has been encouraged. The patient has been encouraged to optimize her nutritional intake. The patient attests to the fact that her appetite is good, and she is consuming a well-balanced diet. The traumatic wounds in the left lower extremity remain completely healed and epithelialized. A traumatic wound persists on the right pretibial surface, which is progressively decreasing in size. An EpiFix/EpiMesh allograft (#8) was applied to the right pretibial ulceration at this visit. It is to remain in place and undisturbed until the patient returns in 1 week for reevaluation. Total time: 25 minutes
[2025-01-20 14:42] VITALS: BP 138/65; PULSE 61; RESP 18; TEMP 36.5
--- NOTE | 2025-01-21 14:32 | WC ---
PHOTO-RIGHT WEEKS 01/20/25
--- NOTE | 2025-01-21 16:50 | PCM.WC.HP ---
History of Present Illness Date of Service: 01/20/25 Chief Complaint: Right lower extremity traumatic wound History of Wound: This is a 74-year-old female who has presented repeatedly with traumatic wounds to both lower extremities. A wound on the right pretibial surface persists, though all other lower extremity wounds have healed. The patient is mobile and active. She denies swelling in her legs. She sleeps on a flat surface at night. She denies a history of thrombophlebitis. The patient denies a history of congestive heart failure, myocardial infarction, diabetes mellitus, cerebrovascular accident, hypertension, renal disease, and pulmonary disease. She has a history of hypothyroidism. A limited venous duplex examination was performed on October 26, 2022, examining only the right lower extremity, and revealing no evidence of thrombophlebitis. Valvular competence was not fully evaluated. [facility] Medical History Non-pressure chronic ulcer of right calf with fat layer exposed Non-pressure chronic ulcer of right lower leg with fat layer exposed Traumatic open wound of right lower leg Traumatic open wound of left lower leg Non-pressure chronic ulcer of left lower leg with fat layer exposed Non-pressure chronic ulcer of right lower leg with fat layer exposed Traumatic open wound of right lower leg with delayed healing Traumatic open wound of left lower leg with delayed healing Wears glasses Anxiety Alcohol use History of steroid therapy Easy bruising Back pain Injury of back Migraine headache Syncope History of IBS Former smoker Leg cramps History of edema History of stress test Cataracts, bilateral Arthritis Anemia Vitamin D deficiency, unspecified Hypothyroidism Home Medications ?Medication ?Instructions ?Recorded ?Last Taken ?Type lidocaine 5 % topical patch 2 patch topical DAILY 05/03/17 1 Day Ago History ~09/21/17 meloxicam 15 mg tablet 15 mg PO QDAY 05/03/17 09/22/17 History doxepin 10 mg capsule 10 mg PO QHS 12/16/19 Unknown History folic acid 400 mcg tablet 0.4 mg PO DAILY@0800 12/16/19 Unknown History linaclotide 145 mcg capsule 145 mcg PO DAILY 12/16/19 Unknown History estradiol 0.1 mg/24 hr semiweekly 2 patch transdermal MOTH 03/15/20 Unknown History transdermal patch (Bessie) acetaminophen 500 mg tablet 1,000 mg PO BID 01/06/22 Unknown History vitamin D02-wxitmof B1 100 mg-1 1 ml IM .QMO 01/06/22 Unknown History mg/mL intramuscular solution levothyroxine 50 mcg tablet 50 mcg PO DAILY 03/18/24 Unknown History gabapentin 100 mg capsule 100 mg PO BID 05/07/24 Unknown History loratadine 10 mg tablet 10 mg PO .prn 05/07/24 Unknown History sulfamethoxazole 800 1 tab PO Q12H #14 tabs 05/27/24 Unknown Rx mg-trimethoprim 160 mg tablet (Bactrim DS) cephalexin 500 mg capsule 500 mg PO 4X/DAY 07/08/24 Unknown History doxycycline hyclate 100 mg tablet 100 mg PO BID 07/08/24 Unknown History sulfamethoxazole 800 1 tab PO Q12H #14 tabs 07/08/24 Unknown Rx mg-trimethoprim 160 mg tablet (Bactrim DS) sulfamethoxazole 800 1 tab PO Q12H wound infection #14 09/10/24 Unknown Rx mg-trimethoprim 160 mg tablet tabs (Bactrim DS) Allergy/AdvReac Type Severity Reaction Status Date / Time No Known Allergies Allergy Verified 05/07/24 11:09 Family History Mother Rheumatoid arthritis Father Pancreatic cancer Cancer Grandfather Myocardial infarction Grandmother Thyroid disorder Surgical History Status post spinal disc removal History of tonsillectomy History of lumbar spinal fusion History of total hip replacement History of hysterectomy History of cervical discectomy Social History household members: spouse Smoking Status: Never smoker alcohol intake: current alcohol intake frequency: a few times a week Alcohol type: wine substance use type: does not use what type of physical activity do you participate in: other details: physical therapy frequency: 1-2 times per week Physical Exam Const alert, oriented x3, no apparent distress, average body habitus and no limitations Constitutional Narrative: The patient's BMI is 19.7. She is of thin body habitus. General Appearance: cooperative, comfortable, well kempt and well developed Orientation / Consciousness: awake, oriented to person, oriented to place and oriented to time Exam Limitations: no limitations HEENT normocephalic, head/scalp atraumatic and hearing grossly normal bilaterally Head and Scalp: normal to inspection, normocephalic and atraumatic Face and Sinus: normal facial exam Nose: external nose normal External Ear: external ears normal Eyes EOMs intact bilaterally General Eye: normal appearance of both eyes Neck full ROM Resp normal respiratory effort, normal air movement, no retractions and no use of accessory muscles Effort and Inspection: able to speak in complete sentences Extremity no clubbing, cyanosis or edema and no calf tenderness Skin Wound Narrative: The patient's lower extremities appear warm and well-perfused. Pedal pulses are easily palpable bilaterally. There is no significant swelling or edema in the patient's lower extremities. The wounds on the patient's left lower extremity remain completely healed and epithelialized. The traumatic wound on the patient's right pretibial surface appears pink and healthy in appearance with a small amount of bioburden. There is evidence of granulation tissue and peripheral epithelialization. There is no sign of infection or cellulitis. Wound dimensions are documented elsewhere. The wound has changed in size very little within the last week. Wound margins are well beveled. Hair: normal Neuro oriented x3, CN's II-XII intact bilaterally, moves all extremities, no focal motor deficits and no sensory deficits noted Sensorium / Orientation: awake, alert, oriented to person, oriented to place and oriented to time Speech: speech normal Psych Appearance: grossly normal and appropriate Attitude: calm Activity / Motor Behavior: appropriate eye contact Speech: normal speech Mood & Affect: euthymic mood Thought Process: normal thought process Thought Content: normal thought content Attention / Concentration: attention grossly intact Memory / Cognition: memory grossly intact Insight: insight good Judgement: judgement good Debridement Note Debridement Note Wound debrided: Traumatic right pretibial wound Laterality: Right Type of Debridement: Excisional debridement Anesthesia Used: 5% Lidocaine Gel and Cetacaine Depth: Down to and including healthy tissue and in the subcutaneous layer Percentage of wound debrided: 100 Instrument Used: 5mm curette Tissue Removed: Bioburden Severity: Fat Layer Exposed Amount of bleeding with debridement: Mild Bleeding Controlled with: Compression and gauze Patient tolerated procedure: Patient tolerated procedure well Debridement Free Text: The excisional debridement was well-tolerated. Following the debridement, an EpiMesh allograft was applied. Based upon the wound dimensions, a 4 cm x 4.5 cm EpiMesh graft was selected for application. The EpiMesh allograft was removed from its sterile packaging. It was applied topically to the wound in the appropriate orientation. 100% of the allograft was utilized through stacking. The allograft covered 100% of the wound surface. Adaptic Touch was then placed over the allograft, and was secured using Steri-Strips. Collagen hydrogel was applied over the Adaptic Touch, and a dry, sterile occlusive gauze dressing was applied. This represents the 9th such application of an allograft at this site. Post-Debridement Measurements and Additional Note: Post-Debridement Measurements/Treatment - Nurse 1 - General Ulcer Assessment Start: 01/13/25 14:53 Freq: Status: Active Protocol: JOE.LOWEXT Activity Type Activity Date Activity User E-sign Co-sign Detail Recorded Client Recorded Date Recorded By Document 01/13/25 14:53 RB [id number] 01/13/25 14:55 RB Document 01/20/25 14:42 RB [id number] 01/20/25 14:45 RB 01/13/25 01/20/25 14:53 14:42 - Today's Visit Information Type of service Follow-up Visit Follow-up Visit (Physician/[employer] [facility] (Physician/[employer] ) ) Arrival Mode Ambulatory Ambulatory Transfer Assistance None None Patient Identification Verified (Name & Yes Yes ) Patient Requires Transmission-Based No No Precautions Vital Signs Temperature (97.8 F-99.1 F) 97.1 F L 97.7 F L Temperature Source Temporal Temporal Pulse Rate (60-100) 64 61 Pulse Location Monitor Monitor Respiratory Rate (12-18) 18 18 Respiratory rate source Observation Observation Blood Pressure (90/60-120/80) 149/87 H 138/65 H Blood Pressure Mean 107 89 Source Monitor Monitor Position Semi-Fowlers Semi-Fowlers Blood Pressure Location Left Arm Right Arm History Since Last Visit- (Skip if this is Patient's initial visit) Have you changed medications since your No No last visit? Any new allergies or adverse reactions No No Had a fall/change in ADL's that may No No increase risk of falls Signs or symptoms of abuse and/or No No neglect since last visit Have you been in the hospital since your No No last visit? Has dressing in place as prescribed Yes Yes Has compression in place as prescribed Yes Yes Has offloadiing in place as prescribed N/A N/A Experienced any changes in pain level or No No management Left Footwear Regular Shoe Right Footwear Regular Shoe Pain Scale: 0-10 Numeric Is Patient Pain Free? Yes Yes WC - Nurse 1 - General Ulcer Measurement Start: 01/13/25 14:53 Freq: Status: Active Protocol: Activity Type Activity Date Activity User E-sign Co-sign Detail Recorded Client Recorded Date Recorded By Document 01/13/25 14:53 RB [id number] 01/13/25 14:55 RB Document 01/20/25 14:42 RB [id number] 01/20/25 14:45 RB 01/13/25 01/20/25 14:53 14:42 Wound Center Nurse 1 #4 Rt med le -Combined with other wound No No -Current Size (cm) - Length 2.5 2.5 -Current Size (cm) - Width 1.9 1.8 -Current Size (cm) - Depth 0.1 0.1 -Total Square Cm 4.75 4.50 -Photo Taken Yes Yes -Tunneling No No -Undermining/Tunneling No No -Circular Undermining No No -Exudate Amt Medium Medium -Exudate Type Serosanguineous Serosanguineous -Wound Margin Distinct, Distinct, Outline Outline Attached Attached -Granulation Amt Medium (34-66%) Medium (34-66%) -Granulation Quality [place] -Slough/Fibrin Yes Yes -Necrosis Amt Medium (34-66%) Medium (34-66%) -Necrotic Tissue Type Adherent Slough Adherent Slough -Structure Exposed N/A N/A -Texture (Joyce-wound Skin Appearance) Friable Assessed, Scarring -Moisture (Joyce-wound Skin Appearance) Assessed Assessed -Color (Joyce-wound Skin Appearance) Assessed Assessed -Temperature (Joyce-wound Skin No Abnormality No Abnormality Appearance) (Pt Warm) (Pt Warm) -Tenderness on Palpation (Joyce-wound No No Skin Appearance) -Ulcer Cleansing Wound Cleanser Rinsed/ Irrigated with Saline -Foul Odor after Cleansing No No -Anesthetic Used 5% Lidocaine 5% Lidocaine Gel Gel Lower Limb Edema Present Yes Yes Right Calf (cm) 28.2 27.5 Right Ankle (cm) 17 15.5 WC - Nurse 2 - General Ulcer CM Notes Start: 01/13/25 14:53 Freq: Status: Active Protocol: Activity Type Activity Date Activity User E-sign Co-sign Detail Recorded Client Recorded Date Recorded By Document 01/13/25 15:14 JF [id number] 01/13/25 15:16 JF Document 01/20/25 15:20 DS [id number] 01/20/25 15:32 DS Edit Result 01/20/25 15:20 DS (1) [id number] 01/20/25 15:34 DS (1) #4 Rt med le - Offloading => No - Apply Skin Sub - 1st 25 sq cm - Legs => 1 - Epifix Mesh Application 1-4 (per sq cm => 11 ) 01/13/25 01/20/25 15:14 15:20 Wound Center Nurse 2 #4 Rt med le -Time 15:14 15:21 -Correct Patient Yes Yes -Correct Side, Site, Position Yes Yes -Correct Procedure Yes Yes -Procedure Performed Yes Yes -Type of Procedure Debridement Debridement -Clinical Debridement Subcutaneous Subcutaneous -Tissue Removed Subcutaneous Subcutaneous -Post Debridement (cm) - Length 2.7 2.5 -Post Debridement (cm) - Width 2 2.0 -Post Debridement (cm) - Depth 0.1 0.1 -Total Square (Post) (cm) 5.4 5.00 -Area of Debridement (cm) - Length 2.7 2.5 -Area of Debridement (cm) - Width 2 2.0 -Total Square (Area) (cm) 5.4 5.00 -Tunneling No No -Undermining/Tunneling No No -Circular Undermining No No -Wound/Ulcer Outcome Not Healed Not Healed -Ulcer Cleansing Rinsed/ gauze Irrigated with Saline -Foul Odor after Cleansing No No -Bioengineered Tissue Yes Yes -Type of Bioengineered Tissue Epifix Mesh Epifix Mesh -Expiration Date 07/08/29 07/08/29 -Product Lot Number [id number] -Percent Used 100 100 -Lot number of Saline Used [id number] -Bleeding Controlled with Pressure Pressure -Treatment Response Procedure Procedure Tolerated Well Tolerated Well -Offloading No No -Debridement - Subq, 1st 20sq cm No No -Apply Skin Sub - 1st 25 sq cm - Legs 1 1 -Epifix Mesh Application 1-4 (per sq 11 11 cm) Pain Scale: 0-10 Numeric Is Patient Pain Free? Yes Yes WC - Nurse 3 - General Ulcer D/C NN Start: 01/13/25 14:53 Freq: Status: Active Protocol: Activity Type Activity Date Activity User E-sign Co-sign Detail Recorded Client Recorded Date Recorded By Document 01/13/25 15:24 ML [id number] 01/13/25 15:25 ML Document 01/20/25 15:45 JF [id number] 01/20/25 15:45 JF 01/13/25 01/20/25 15:24 15:45 Wound Care Center Nurse 3 #4 Rt med le -Primary Dressing Applied Silicone Border Silicone Border Foam 6x6 Foam 4x4 -Silicone Border Foam 4x4 1 -Silicone Border Foam 6x6 1 Pain Scale: 0-10 Numeric Is Patient Pain Free? Yes Yes WC - Visit Discharge Discharge Condition Stable Ambulatory Status Ambulatory Transportation Private Auto Medication Reconcilliation completed & Yes provided to patient/care provider Clinical Summary of Care Provided Yes Charges/Coding Procedures Integumentary [id number]: [id number] Skin sub graft trnk/arm/leg Assessment/Plan Assessment/Plan (1) Non-pressure chronic ulcer of right calf with fat layer exposed: CODE(S): L97.212 - Non-pressure chronic ulcer of right calf with fat layer exposed (2) Non-pressure chronic ulcer of right lower leg with fat layer exposed: CODE(S): L97.912 - Non-pressure chronic ulcer of unspecified part of right lower leg with fat layer exposed (3) Traumatic open wound of right lower leg: CODE(S): S81.801A - Unspecified open wound, right lower leg, initial encounter QUALIFIERS: Encounter type: subsequent encounter Qualified Code(s): S81.801D - Unspecified open wound, right lower leg, subsequent encounter (4) Lumbar scoliosis: CODE(S): M41.9 - Scoliosis, unspecified QUALIFIERS: Scoliosis type: other secondary scoliosis Qualified Code(s): M41.56 - Other secondary scoliosis, lumbar region (5) Low back pain: CODE(S): M54.50 - Low back pain, unspecified QUALIFIERS: Chronicity: chronic Back pain laterality: unspecified Sciatica presence: unspecified whether sciatica present Qualified Code(s): M54.50 - Low back pain, unspecified; G89.29 - Other chronic pain (6) DDD (degenerative disc disease), lumbosacral: CODE(S): M51.37 - Other intervertebral disc degeneration, lumbosacral region QUALIFIERS: Disc-related pain type: unspecified whether pain present Qualified Code(s): M51.379 - Other intervertebral disc degeneration, lumbosacral region without mention of lumbar back pain or lower extremity pain (7) Hypothyroidism (acquired): CODE(S): E03.9 - Hypothyroidism, unspecified (8) Cataracts, bilateral: CODE(S): H26.9 - Unspecified cataract QUALIFIERS: Cataract type: unspecified Qualified Code(s): H26.9 - Unspecified cataract (9) History of tonsillectomy: CODE(S): Z90.89 - Acquired absence of other organs (10) History of IBS: CODE(S): Z87.19 - Personal history of other diseases of the digestive system (11) Former smoker: CODE(S): Z87.891 - Personal history of nicotine dependence (12) History of lumbar spinal fusion: CODE(S): Z98.1 - Arthrodesis status (13) History of hysterectomy: CODE(S): Z90.710 - Acquired absence of both cervix and uterus (14) History of cervical discectomy: CODE(S): Z98.890 - Other specified postprocedural states (15) History of total hip replacement: CODE(S): Z96.649 - Presence of unspecified artificial hip joint QUALIFIERS: Laterality: unspecified laterality Qualified Code(s): Z96.649 - Presence of unspecified artificial hip joint (16) Status post spinal disc removal: CODE(S): Z98.890 - Other specified postprocedural states PLAN: Plan This is a 74-year-old female who presented with traumatic wounds in both lower extremities. Although the patient does not relate significant swelling in her lower extremities, measures to prevent such swelling have been thoroughly discussed and implemented. The patient has been encouraged to elevate her lower extremities as much as possible. She has been advised to refrain from prolonged, idle sitting. She is to continue wearing her Tubigrips bilaterally on a daily basis. Activity has been encouraged. The patient has been encouraged to optimize her nutritional intake. The patient attests to the fact that her appetite is good, and she is consuming a well-balanced diet. The traumatic wounds in the left lower extremity remain completely healed and epithelialized. A traumatic wound persists on the right pretibial surface, which is progressively, though slowly, decreasing in size. An EpiMesh allograft (#9) was applied to the right pretibial ulceration at this visit. It is to remain in place and undisturbed until the patient returns in 1 week for reevaluation. Total time: 26 minutes
[2025-01-27 14:58] VITALS: BP 151/62; PULSE 70; RESP 16; TEMP 36.4
--- NOTE | 2025-01-28 09:12 | WC ---
PHOTO-RIGHT WEEKS 01/27/25
--- NOTE | 2025-01-29 14:42 | PCM.WC.HP ---
History of Present Illness Date of Service: 01/27/25 Chief Complaint: Right lower extremity traumatic wound History of Wound: This is a 74-year-old female who has presented repeatedly with traumatic wounds to both lower extremities. A wound on the right pretibial surface persists, though all other lower extremity wounds have healed. The patient is mobile and active. She denies swelling in her legs. She sleeps on a flat surface at night. She denies a history of thrombophlebitis. The patient denies a history of congestive heart failure, myocardial infarction, diabetes mellitus, cerebrovascular accident, hypertension, renal disease, and pulmonary disease. She has a history of hypothyroidism. A limited venous duplex examination was performed on October 26, 2022, examining only the right lower extremity, and revealing no evidence of thrombophlebitis. Valvular competence was not fully evaluated. [facility] [place] Medical History Non-pressure chronic ulcer of right calf with fat layer exposed Non-pressure chronic ulcer of right lower leg with fat layer exposed Traumatic open wound of right lower leg Traumatic open wound of left lower leg Non-pressure chronic ulcer of left lower leg with fat layer exposed Non-pressure chronic ulcer of right lower leg with fat layer exposed Traumatic open wound of right lower leg with delayed healing Traumatic open wound of left lower leg with delayed healing Wears glasses Anxiety Alcohol use History of steroid therapy Easy bruising Back pain Injury of back Migraine headache Syncope History of IBS Former smoker Leg cramps History of edema History of stress test Cataracts, bilateral Arthritis Anemia Vitamin D deficiency, unspecified Hypothyroidism Home Medications ?Medication ?Instructions ?Recorded ?Last Taken ?Type lidocaine 5 % topical patch 2 patch topical DAILY 05/03/17 1 Day Ago History ~09/21/17 meloxicam 15 mg tablet 15 mg PO QDAY 05/03/17 09/22/17 History doxepin 10 mg capsule 10 mg PO QHS 12/16/19 Unknown History folic acid 400 mcg tablet 0.4 mg PO DAILY@0800 12/16/19 Unknown History linaclotide 145 mcg capsule 145 mcg PO DAILY 12/16/19 Unknown History estradiol 0.1 mg/24 hr semiweekly 2 patch transdermal MOTH 03/15/20 Unknown History transdermal patch (Bessie) acetaminophen 500 mg tablet 1,000 mg PO BID 01/06/22 Unknown History vitamin [id number] B1 100 mg-1 1 ml IM .QMO 01/06/22 Unknown History mg/mL intramuscular solution levothyroxine 50 mcg tablet 50 mcg PO DAILY 03/18/24 Unknown History gabapentin 100 mg capsule 100 mg PO BID 05/07/24 Unknown History loratadine 10 mg tablet 10 mg PO .prn 05/07/24 Unknown History sulfamethoxazole 800 1 tab PO Q12H #14 tabs 05/27/24 Unknown Rx mg-trimethoprim 160 mg tablet (Bactrim DS) cephalexin 500 mg capsule 500 mg PO 4X/DAY 07/08/24 Unknown History doxycycline hyclate 100 mg tablet 100 mg PO BID 07/08/24 Unknown History sulfamethoxazole 800 1 tab PO Q12H #14 tabs 07/08/24 Unknown Rx mg-trimethoprim 160 mg tablet (Bactrim DS) sulfamethoxazole 800 1 tab PO Q12H wound infection #14 09/10/24 Unknown Rx mg-trimethoprim 160 mg tablet tabs (Bactrim DS) Allergy/AdvReac Type Severity Reaction Status Date / Time No Known Allergies Allergy Verified 05/07/24 11:09 Family History Mother Rheumatoid arthritis Father Pancreatic cancer Cancer Grandfather Myocardial infarction Grandmother Thyroid disorder Surgical History Status post spinal disc removal History of tonsillectomy History of lumbar spinal fusion History of total hip replacement History of hysterectomy History of cervical discectomy Social History household members: spouse Smoking Status: Never smoker alcohol intake: current alcohol intake frequency: a few times a week Alcohol type: wine substance use type: does not use what type of physical activity do you participate in: other details: physical therapy frequency: 1-2 times per week Physical Exam Const alert, oriented x3, no apparent distress, average body habitus and no limitations Constitutional Narrative: The patient's BMI is 19.7. She is of thin body habitus. General Appearance: cooperative, comfortable, well kempt and well developed Orientation / Consciousness: awake, oriented to person, oriented to place and oriented to time Exam Limitations: no limitations HEENT normocephalic, head/scalp atraumatic and hearing grossly normal bilaterally Head and Scalp: normal to inspection, normocephalic and atraumatic Face and Sinus: normal facial exam Nose: external nose normal External Ear: external ears normal Eyes EOMs intact bilaterally General Eye: normal appearance of both eyes Neck full ROM Resp normal respiratory effort, normal air movement, no retractions and no use of accessory muscles Effort and Inspection: able to speak in complete sentences Extremity no clubbing, cyanosis or edema and no calf tenderness Skin Wound Narrative: The patient's lower extremities appear warm and well-perfused. Pedal pulses are easily palpable bilaterally. There is no significant swelling or edema in the patient's lower extremities. The wounds on the patient's left lower extremity remain completely healed and epithelialized. The traumatic wound on the patient's right pretibial surface appears pink and healthy in appearance with a small amount of bioburden. There is evidence of granulation tissue and peripheral epithelialization. There is no sign of infection or cellulitis. Wound dimensions are documented elsewhere. The wound has changed in size very little within the last week. Wound margins are well beveled. Hair: normal Neuro oriented x3, CN's II-XII intact bilaterally, moves all extremities, no focal motor deficits and no sensory deficits noted Sensorium / Orientation: awake, alert, oriented to person, oriented to place and oriented to time Speech: speech normal Psych Appearance: grossly normal and appropriate Attitude: calm Activity / Motor Behavior: appropriate eye contact Speech: normal speech Mood & Affect: euthymic mood Thought Process: normal thought process Thought Content: normal thought content Attention / Concentration: attention grossly intact Memory / Cognition: memory grossly intact Insight: insight good Judgement: judgement good Debridement Note Debridement Note Wound debrided: Traumatic right pretibial wound Laterality: Right Type of Debridement: Excisional debridement Anesthesia Used: 5% Lidocaine Gel and Cetacaine Depth: Down to and including healthy tissue and in the subcutaneous layer Percentage of wound debrided: 100 Instrument Used: 5mm curette Tissue Removed: Bioburden Severity: Fat Layer Exposed Amount of bleeding with debridement: Mild Bleeding Controlled with: Compression and gauze Patient tolerated procedure: Patient tolerated procedure well Post-Debridement Measurements and Additional Note: Post-Debridement Measurements/Treatment JOE - Nurse 1 - General Ulcer Assessment Start: 01/13/25 14:53 Freq: Status: Active Protocol: QUIANA Activity Type Activity Date Activity User E-sign Co-sign Detail Recorded Client Recorded Date Recorded By Document 01/13/25 14:53 RB [id number] 01/13/25 14:55 RB Document 01/20/25 14:42 RB [id number] 01/20/25 14:45 RB Document 01/27/25 14:58 JF [id number] 01/27/25 15:02 JF 01/13/25 01/20/25 01/27/25 14:53 14:42 14:58 - Today's Visit Information Type of service Follow-up Visit Follow-up Visit Follow-up Visit (Physician/GRANULATING MACHINE OPERATOR (Physician/GRANULATING MACHINE OPERATOR (Physician/GRANULATING MACHINE OPERATOR ) ) ) Arrival Mode Ambulatory Ambulatory Ambulatory Transfer Assistance None None Patient Identification Verified (Name & Yes Yes No ) Patient Requires Transmission-Based No No No Precautions Vital Signs Temperature (97.8 F-99.1 F) 97.1 F L 97.7 F L 97.5 F L Temperature Source Temporal Temporal Temporal Pulse Rate (60-100) 64 61 70 Pulse Location Monitor Monitor Monitor Respiratory Rate (12-18) 18 18 16 Respiratory rate source Observation Observation Blood Pressure (90/60-120/80) 149/87 H 138/65 H 151/62 H Blood Pressure Mean 107 89 91 Source Monitor Monitor Monitor Position Semi-Fowlers Semi-Fowlers Semi-Fowlers Blood Pressure Location Left Arm Right Arm Right Arm History Since Last Visit- (Skip if this is Patient's initial visit) Have you changed medications since your No No Yes last visit? Any new allergies or adverse reactions No No No Had a fall/change in ADL's that may No No No increase risk of falls Signs or symptoms of abuse and/or No No No neglect since last visit Have you been in the hospital since your No No No last visit? Has dressing in place as prescribed Yes Yes Yes Has compression in place as prescribed Yes Yes No Has offloadiing in place as prescribed N/A N/A N/A Experienced any changes in pain level or No No No management Left Footwear Regular Shoe Regular Shoe Right Footwear Regular Shoe Regular Shoe Pain Scale: 0-10 Numeric Is Patient Pain Free? Yes Yes Yes - Nurse 1 - General Ulcer Measurement Start: 01/13/25 14:53 Freq: Status: Active Protocol: Activity Type Activity Date Activity User E-sign Co-sign Detail Recorded Client Recorded Date Recorded By Document 01/13/25 14:53 RB [id number] 01/13/25 14:55 RB Document 01/20/25 14:42 RB [id number] 01/20/25 14:45 RB Document 01/27/25 14:58 JF [id number] 01/27/25 15:02 JF 01/13/25 01/20/25 01/27/25 14:53 14:42 14:58 Wound Center Nurse 1 #4 Rt med le -Combined with other wound No No No -Current Size (cm) - Length 2.5 2.5 2.5 -Current Size (cm) - Width 1.9 1.8 2 -Current Size (cm) - Depth 0.1 0.1 0.1 -Total Square Cm 4.75 4.50 5.0 -Photo Taken Yes Yes Yes -Epithelialization Medium 34-66% -Tunneling No No No -Undermining/Tunneling No No -Circular Undermining No No No -Exudate Amt Medium Medium Medium -Exudate Type Serosanguineous Serosanguineous Serosanguineous -Wound Margin Distinct, Distinct, Flat & Intact Outline Outline Attached Attached -Granulation Amt Medium (34-66%) Medium (34-66%) Medium (34-66%) -Granulation Quality [place] -Slough/Fibrin Yes Yes Yes -Necrosis Amt Medium (34-66%) Medium (34-66%) Small (1-33%) -Necrotic Tissue Type Adherent Slough Adherent Slough Adherent Slough -Structure Exposed N/A N/A N/A -Texture (Joyce-wound Skin Appearance) Friable Assessed, Assessed Scarring -Moisture (Joyce-wound Skin Appearance) Assessed Assessed No Abnormality, Dry/Scaly -Color (Joyce-wound Skin Appearance) Assessed Assessed Assessed -Temperature (Joyce-wound Skin No Abnormality No Abnormality No Abnormality Appearance) (Pt Warm) (Pt Warm) (Pt Warm) -Tenderness on Palpation (Joyce-wound No No No Skin Appearance) -Ulcer Cleansing Wound Cleanser Rinsed/ Soap and Water Irrigated with Saline -Foul Odor after Cleansing No No No -Anesthetic Used 5% Lidocaine 5% Lidocaine 4% Lidocaine Gel Gel Solution Lower Limb Edema Present Yes Yes No Right Calf (cm) 28.2 27.5 Right Ankle (cm) 17 15.5 WC - Nurse 2 - General Ulcer CM Notes Start: 01/13/25 14:53 Freq: Status: Active Protocol: Activity Type Activity Date Activity User E-sign Co-sign Detail Recorded Client Recorded Date Recorded By Document 01/13/25 15:14 JF [id number] 01/13/25 15:16 JF Document 01/20/25 15:20 DS [id number] 01/20/25 15:32 DS Edit Result 01/20/25 15:20 DS (1) [id number] 01/20/25 15:34 DS Document 01/27/25 15:23 DS [id number] 01/27/25 15:26 DS (1) #4 Rt med le - Offloading => No - Apply Skin Sub - 1st 25 sq cm - Legs => 1 - Epifix Mesh Application 1-4 (per sq cm => 11 ) 01/13/25 01/20/25 01/27/25 15:14 15:20 15:23 Wound Center Nurse 2 #4 Rt med le -Time 15:14 15:21 15:23 -Correct Patient Yes Yes Yes -Correct Side, Site, Position Yes Yes Yes -Correct Procedure Yes Yes Yes -Procedure Performed Yes Yes Yes -Type of Procedure Debridement Debridement Debridement -Clinical Debridement Subcutaneous Subcutaneous Subcutaneous -Tissue Removed Subcutaneous Subcutaneous Subcutaneous -Post Debridement (cm) - Length 2.7 2.5 2.4 -Post Debridement (cm) - Width 2 2.0 2.0 -Post Debridement (cm) - Depth 0.1 0.1 0.1 -Total Square (Post) (cm) 5.4 5.00 4.80 -Area of Debridement (cm) - Length 2.7 2.5 2.4 -Area of Debridement (cm) - Width 2 2.0 2.0 -Total Square (Area) (cm) 5.4 5.00 4.80 -Tunneling No No No -Undermining/Tunneling No No No -Circular Undermining No No No -Wound/Ulcer Outcome Not Healed Not Healed Not Healed -Ulcer Cleansing Rinsed/ gauze Rinsed/ Irrigated with Irrigated with Saline Saline -Foul Odor after Cleansing No No No -Bioengineered Tissue Yes Yes No -Type of Bioengineered Tissue Epifix Mesh Epifix Mesh -Expiration Date 07/08/29 07/08/29 -Product Lot Number [id number] -Percent Used 100 100 -Lot number of Saline Used [id number] -Bleeding Controlled with Pressure Pressure Pressure -Treatment Response Procedure Procedure Procedure Tolerated Well Tolerated Well Tolerated Well -Offloading No No -Debridement - Subq, 1st 20sq cm No No Yes -Apply Skin Sub - 1st 25 sq cm - Legs 1 1 -Epifix Mesh Application 1-4 (per sq 11 11 cm) Pain Scale: 0-10 Numeric Is Patient Pain Free? Yes Yes Yes - Nurse 3 - General Ulcer D/C NN Start: 01/13/25 14:53 Freq: Status: Active Protocol: Activity Type Activity Date Activity User E-sign Co-sign Detail Recorded Client Recorded Date Recorded By Document 01/13/25 15:24 ML [id number] 01/13/25 15:25 ML Document 01/20/25 15:45 JF [id number] 01/20/25 15:45 JF Document 01/27/25 15:31 DS [id number] 01/27/25 15:32 DS 01/13/25 01/20/25 01/27/25 15:24 15:45 15:31 Wound Care Center Nurse 3 #4 Rt med le -Primary Dressing Applied Silicone Border Silicone Border Aquacel AG 4x4, Foam 6x6 Foam 4x4 Silicone Border Foam 4x4 -Aquacel AG 4x4 1 -Silicone Border Foam 4x4 1 1 -Silicone Border Foam 6x6 1 Pain Scale: 0-10 Numeric Is Patient Pain Free? Yes Yes Yes - Visit Discharge Discharge Condition Stable Stable Ambulatory Status Ambulatory Ambulatory Transportation Private Auto Private Auto Medication Reconcilliation completed & Yes provided to patient/care provider Clinical Summary of Care Provided Yes Charges/Coding Procedures Integumentary [id number]: [id number] [place] subq tissue 20 sq cm/< Assessment/Plan Assessment/Plan (1) Non-pressure chronic ulcer of right calf with fat layer exposed: CODE(S): L97.212 - Non-pressure chronic ulcer of right calf with fat layer exposed (2) Non-pressure chronic ulcer of right lower leg with fat layer exposed: CODE(S): L97.912 - Non-pressure chronic ulcer of unspecified part of right lower leg with fat layer exposed (3) Traumatic open wound of right lower leg: CODE(S): S81.801A - Unspecified open wound, right lower leg, initial encounter QUALIFIERS: Encounter type: subsequent encounter Qualified Code(s): S81.801D - Unspecified open wound, right lower leg, subsequent encounter (4) Lumbar scoliosis: CODE(S): M41.9 - Scoliosis, unspecified QUALIFIERS: Scoliosis type: other secondary scoliosis Qualified Code(s): M41.56 - Other secondary scoliosis, lumbar region (5) Low back pain: CODE(S): M54.50 - Low back pain, unspecified QUALIFIERS: Chronicity: chronic Back pain laterality: unspecified Sciatica presence: unspecified whether sciatica present Qualified Code(s): M54.50 - Low back pain, unspecified; G89.29 - Other chronic pain (6) DDD (degenerative disc disease), lumbosacral: CODE(S): M51.37 - Other intervertebral disc degeneration, lumbosacral region QUALIFIERS: Disc-related pain type: unspecified whether pain present Qualified Code(s): M51.379 - Other intervertebral disc degeneration, lumbosacral region without mention of lumbar back pain or lower extremity pain (7) Hypothyroidism (acquired): CODE(S): E03.9 - Hypothyroidism, unspecified (8) Cataracts, bilateral: CODE(S): H26.9 - Unspecified cataract QUALIFIERS: Cataract type: unspecified Qualified Code(s): H26.9 - Unspecified cataract (9) History of tonsillectomy: CODE(S): Z90.89 - Acquired absence of other organs (10) History of IBS: CODE(S): Z87.19 - Personal history of other diseases of the digestive system (11) Former smoker: CODE(S): Z87.891 - Personal history of nicotine dependence (12) History of lumbar spinal fusion: CODE(S): Z98.1 - Arthrodesis status (13) History of hysterectomy: CODE(S): Z90.710 - Acquired absence of both cervix and uterus (14) History of cervical discectomy: CODE(S): Z98.890 - Other specified postprocedural states (15) History of total hip replacement: CODE(S): Z96.649 - Presence of unspecified artificial hip joint QUALIFIERS: Laterality: unspecified laterality Qualified Code(s): Z96.649 - Presence of unspecified artificial hip joint (16) Status post spinal disc removal: CODE(S): Z98.890 - Other specified postprocedural states PLAN: Plan This is a 74-year-old female who presented with traumatic wounds in both lower extremities. Although the patient does not relate significant swelling in her lower extremities, measures to prevent such swelling have been thoroughly discussed and implemented. The patient has been encouraged to elevate her lower extremities as much as possible. She has been advised to refrain from prolonged, idle sitting. She is to continue wearing her Tubigrips bilaterally on a daily basis. Activity has been encouraged. The patient has been encouraged to optimize her nutritional intake. The patient attests to the fact that her appetite is good, and she is consuming a well-balanced diet. The traumatic wounds in the left lower extremity remain completely healed and epithelialized. A traumatic wound persists on the right pretibial surface, which is progressively, though slowly, decreasing in size. An EpiMesh allograft (#9) was applied to the right pretibial ulceration last week. However, rather than apply the 10th and final EpiFix allograft at this visit, we are to implement the use of moistened Aquacel Ag topically, which will be applied on a daily basis. The patient has been instructed in the appropriate means of application. The patient is to return in 1 week for reevaluation. It is anticipated that the 10th and final EpiFix allograft will be applied at that time. Total time: 24 minutes
[2025-02-03 14:27] VITALS: BP 135/78; PULSE 65; RESP 18; TEMP 36.2
--- NOTE | 2025-02-03 23:07 | PCM.WC.HP ---
History of Present Illness Date of Service: 02/03/25 Chief Complaint: Right lower extremity traumatic wound History of Wound: This is a 75-year-old female who has presented repeatedly with traumatic wounds to both lower extremities. A wound on the right pretibial surface persists, though all other lower extremity wounds have healed. The patient is mobile and active. She denies swelling in her legs. She sleeps on a flat surface at night. She denies a history of thrombophlebitis. The patient denies a history of congestive heart failure, myocardial infarction, diabetes mellitus, cerebrovascular accident, hypertension, renal disease, and pulmonary disease. She has a history of hypothyroidism. A limited venous duplex examination was performed on October 26, 2022, examining only the right lower extremity, and revealing no evidence of thrombophlebitis. Valvular competence was not fully evaluated. COUNT INCLUDES [facility] Medical History Non-pressure chronic ulcer of right calf with fat layer exposed Non-pressure chronic ulcer of right lower leg with fat layer exposed Traumatic open wound of right lower leg Traumatic open wound of left lower leg Non-pressure chronic ulcer of left lower leg with fat layer exposed Non-pressure chronic ulcer of right lower leg with fat layer exposed Traumatic open wound of right lower leg with delayed healing Traumatic open wound of left lower leg with delayed healing Wears glasses Anxiety Alcohol use History of steroid therapy Easy bruising Back pain Injury of back Migraine headache Syncope History of IBS Former smoker Leg cramps History of edema History of stress test Cataracts, bilateral Arthritis Anemia Vitamin D deficiency, unspecified Hypothyroidism Home Medications ?Medication ?Instructions ?Recorded ?Last Taken ?Type lidocaine 5 % topical patch 2 patch topical DAILY 05/03/17 1 Day Ago History ~09/21/17 meloxicam 15 mg tablet 15 mg PO QDAY 05/03/17 09/22/17 History doxepin 10 mg capsule 10 mg PO QHS 12/16/19 Unknown History folic acid 400 mcg tablet 0.4 mg PO DAILY@0800 12/16/19 Unknown History linaclotide 145 mcg capsule 145 mcg PO DAILY 12/16/19 Unknown History estradiol 0.1 mg/24 hr semiweekly 2 patch transdermal MOTH 03/15/20 Unknown History transdermal patch (Bessie) acetaminophen 500 mg tablet 1,000 mg PO BID 01/06/22 Unknown History vitamin [id number] B1 100 mg-1 1 ml IM .QMO 01/06/22 Unknown History mg/mL intramuscular solution levothyroxine 50 mcg tablet 50 mcg PO DAILY 03/18/24 Unknown History gabapentin 100 mg capsule 100 mg PO BID 05/07/24 Unknown History loratadine 10 mg tablet 10 mg PO .prn 05/07/24 Unknown History sulfamethoxazole 800 1 tab PO Q12H #14 tabs 05/27/24 Unknown Rx mg-trimethoprim 160 mg tablet (Bactrim DS) cephalexin 500 mg capsule 500 mg PO 4X/DAY 07/08/24 Unknown History doxycycline hyclate 100 mg tablet 100 mg PO BID 07/08/24 Unknown History sulfamethoxazole 800 1 tab PO Q12H #14 tabs 07/08/24 Unknown Rx mg-trimethoprim 160 mg tablet (Bactrim DS) sulfamethoxazole 800 1 tab PO Q12H wound infection #14 09/10/24 Unknown Rx mg-trimethoprim 160 mg tablet tabs (Bactrim DS) Allergy/AdvReac Type Severity Reaction Status Date / Time No Known Allergies Allergy Verified 05/07/24 11:09 Family History Mother Rheumatoid arthritis Father Pancreatic cancer Cancer Grandfather Myocardial infarction Grandmother Thyroid disorder Surgical History Status post spinal disc removal History of tonsillectomy History of lumbar spinal fusion History of total hip replacement History of hysterectomy History of cervical discectomy Social History household members: spouse Smoking Status: Never smoker alcohol intake: current alcohol intake frequency: a few times a week Alcohol type: wine substance use type: does not use what type of physical activity do you participate in: other details: physical therapy frequency: 1-2 times per week Vital Signs Vital Signs Vital Signs: 02/03/25 14:27 Temperature 97.2 F L Temperature Source Temporal Pulse Rate 65 Respiratory Rate 18 Blood Pressure 135/78 H Blood Pressure Mean 97 Blood Pressure Source Monitor Blood Pressure Position Sitting Blood Pressure Location Left Arm Physical Exam Const alert, oriented x3, no apparent distress, average body habitus and no limitations Constitutional Narrative: The patient's BMI is 19.7. She is of thin body habitus. General Appearance: cooperative, comfortable, well kempt and well developed Orientation / Consciousness: awake, oriented to person, oriented to place and oriented to time Exam Limitations: no limitations HEENT normocephalic, head/scalp atraumatic and hearing grossly normal bilaterally Head and Scalp: normal to inspection, normocephalic and atraumatic Face and Sinus: normal facial exam Nose: external nose normal External Ear: external ears normal Eyes EOMs intact bilaterally General Eye: normal appearance of both eyes Neck full ROM Resp normal respiratory effort, normal air movement, no retractions and no use of accessory muscles Effort and Inspection: able to speak in complete sentences Extremity no clubbing, cyanosis or edema and no calf tenderness Skin Wound Narrative: The patient's lower extremities appear warm and well-perfused. Pedal pulses are easily palpable bilaterally. There is no significant swelling or edema in the patient's lower extremities. The wounds on the patient's left lower extremity remain completely healed and epithelialized. The traumatic wound on the patient's right pretibial surface appears pink and healthy in appearance with a small amount of bioburden. There is evidence of granulation tissue and peripheral epithelialization. There is no sign of infection or cellulitis. Wound dimensions are documented elsewhere. The wound has diminished in size within the last week. Wound margins are well beveled. Hair: normal Neuro oriented x3, CN's II-XII intact bilaterally, moves all extremities, no focal motor deficits and no sensory deficits noted Sensorium / Orientation: awake, alert, oriented to person, oriented to place and oriented to time Speech: speech normal Psych Appearance: grossly normal and appropriate Attitude: calm Activity / Motor Behavior: appropriate eye contact Speech: normal speech Mood & Affect: euthymic mood Thought Process: normal thought process Thought Content: normal thought content Attention / Concentration: attention grossly intact Memory / Cognition: memory grossly intact Insight: insight good Judgement: judgement good Debridement Note Debridement Note Wound debrided: Traumatic right pretibial wound Laterality: Right Type of Debridement: Excisional debridement Anesthesia Used: 5% Lidocaine Gel and Cetacaine Depth: Down to and including healthy tissue and in the subcutaneous layer Percentage of wound debrided: 100 Instrument Used: 5mm curette Tissue Removed: Bioburden Severity: Fat Layer Exposed Amount of bleeding with debridement: Mild Bleeding Controlled with: Compression and gauze Patient tolerated procedure: Patient tolerated procedure well Debridement Free Text: The excisional debridement was well-tolerated. Following the debridement, an EpiFix allograft was applied. Based upon the wound dimensions, a 2 cm x 2 cm EpiFix graft was selected for application. The EpiFix allograft was removed from its sterile packaging. It was applied topically to the wound in the appropriate orientation. 100% of the allograft was utilized. The allograft covered 100% of the wound surface. Adaptic Touch was then placed over the allograft, and was secured using Steri-Strips. Collagen hydrogel was applied over the Adaptic Touch, and a dry, sterile, occlusive gauze dressing was applied. This represents the 10th such application of an allograft at this site. Post-Debridement Measurements and Additional Note: Post-Debridement Measurements/Treatment - Nurse 1 - General Ulcer Assessment Start: 01/13/25 14:53 Freq: Status: Active Protocol: QUIANA Activity Type Activity Date Activity User E-sign Co-sign Detail Recorded Client Recorded Date Recorded By Document 01/13/25 14:53 RB [id number] 01/13/25 14:55 RB Document 01/20/25 14:42 RB [id number] 01/20/25 14:45 RB Document 01/27/25 14:58 JF [id number] 01/27/25 15:02 JF Document 02/03/25 14:27 RB [id number] 02/03/25 14:30 RB 01/13/25 01/20/25 01/27/25 14:53 14:42 14:58 - Today's Visit Information Type of service Follow-up Visit Follow-up Visit Follow-up Visit (Physician/TRAFFIC MONITOR SPECIALIST (Physician/TRAFFIC MONITOR SPECIALIST (Physician/TRAFFIC MONITOR SPECIALIST ) ) ) Arrival Mode Ambulatory Ambulatory Ambulatory Transfer Assistance None None Patient Identification Verified (Name & Yes Yes No ) Patient Requires Transmission-Based No No No Precautions Vital Signs Temperature (97.8 F-99.1 F) 97.1 F L 97.7 F L 97.5 F L Temperature Source Temporal Temporal Temporal Pulse Rate (60-100) 64 61 70 Pulse Location Monitor Monitor Monitor Respiratory Rate (12-18) 18 18 16 Respiratory rate source Observation Observation Blood Pressure (90/60-120/80) 149/87 H 138/65 H 151/62 H Blood Pressure Mean 107 89 91 Source Monitor Monitor Monitor Position Semi-Fowlers Semi-Fowlers Semi-Fowlers Blood Pressure Location Left Arm Right Arm Right Arm History Since Last Visit- (Skip if this is Patient's initial visit) Have you changed medications since your No No Yes last visit? Any new allergies or adverse reactions No No No Had a fall/change in ADL's that may No No No increase risk of falls Signs or symptoms of abuse and/or No No No neglect since last visit Have you been in the hospital since your No No No last visit? Has dressing in place as prescribed Yes Yes Yes Has compression in place as prescribed Yes Yes No Has offloadiing in place as prescribed N/A N/A N/A Experienced any changes in pain level or No No No management Left Footwear Regular Shoe Regular Shoe Right Footwear Regular Shoe Regular Shoe Pain Scale: 0-10 Numeric Is Patient Pain Free? Yes Yes Yes 02/03/25 14:27 - Today's Visit Information Type of service Follow-up Visit (Physician/TRAFFIC MONITOR SPECIALIST ) Arrival Mode Ambulatory Transfer Assistance None Patient Identification Verified (Name & Yes ) Patient Requires Transmission-Based No Precautions Vital Signs Temperature (97.8 F-99.1 F) 97.2 F L Temperature Source Temporal Pulse Rate (60-100) 65 Pulse Location Monitor Respiratory Rate (12-18) 18 Respiratory rate source Observation Blood Pressure (90/60-120/80) 135/78 H Blood Pressure Mean 97 Source Monitor Position Sitting Blood Pressure Location Left Arm History Since Last Visit- (Skip if this is Patient's initial visit) Have you changed medications since your No last visit? Any new allergies or adverse reactions No Had a fall/change in ADL's that may No increase risk of falls Signs or symptoms of abuse and/or No neglect since last visit Have you been in the hospital since your No last visit? Has dressing in place as prescribed Yes Has compression in place as prescribed Yes Has offloadiing in place as prescribed N/A Experienced any changes in pain level or No management Left Footwear Regular Shoe Right Footwear Regular Shoe Pain Scale: 0-10 Numeric Is Patient Pain Free? Yes - Nurse 1 - General Ulcer Measurement Start: 01/13/25 14:53 Freq: Status: Active Protocol: Activity Type Activity Date Activity User E-sign Co-sign Detail Recorded Client Recorded Date Recorded By Document 01/13/25 14:53 RB [id number] 01/13/25 14:55 RB Document 01/20/25 14:42 RB [id number] 01/20/25 14:45 RB Document 01/27/25 14:58 JF [id number] 01/27/25 15:02 JF Document 02/03/25 14:27 RB [id number] 02/03/25 14:30 RB 01/13/25 01/20/25 01/27/25 14:53 14:42 14:58 Wound Center Nurse 1 #4 Rt med le -Combined with other wound No No No -Current Size (cm) - Length 2.5 2.5 2.5 -Current Size (cm) - Width 1.9 1.8 2 -Current Size (cm) - Depth 0.1 0.1 0.1 -Total Square Cm 4.75 4.50 5.0 -Photo Taken Yes Yes Yes -Epithelialization Medium 34-66% -Tunneling No No No -Undermining/Tunneling No No -Circular Undermining No No No -Exudate Amt Medium Medium Medium -Exudate Type Serosanguineous Serosanguineous Serosanguineous -Wound Margin Distinct, Distinct, Flat & Intact Outline Outline Attached Attached -Granulation Amt Medium (34-66%) Medium (34-66%) Medium (34-66%) -Granulation Quality State [place] State [place] -Slough/Fibrin Yes Yes Yes -Necrosis Amt Medium (34-66%) Medium (34-66%) Small (1-33%) -Necrotic Tissue Type Adherent Slough Adherent Slough Adherent Slough -Structure Exposed N/A N/A N/A -Texture (Joyce-wound Skin Appearance) Friable Assessed, Assessed Scarring -Moisture (Joyce-wound Skin Appearance) Assessed Assessed No Abnormality, Dry/Scaly -Color (Joyce-wound Skin Appearance) Assessed Assessed Assessed -Temperature (Joyce-wound Skin No Abnormality No Abnormality No Abnormality Appearance) (Pt Warm) (Pt Warm) (Pt Warm) -Tenderness on Palpation (Joyce-wound No No No Skin Appearance) -Ulcer Cleansing Wound Cleanser Rinsed/ Soap and Water Irrigated with Saline -Foul Odor after Cleansing No No No -Anesthetic Used 5% Lidocaine 5% Lidocaine 4% Lidocaine Gel Gel Solution Lower Limb Edema Present Yes Yes No Right Calf (cm) 28.2 27.5 Right Ankle (cm) 17 15.5 02/03/25 14:27 Wound Center Nurse 1 #4 Rt med le -Combined with other wound No -Current Size (cm) - Length 2.3 -Current Size (cm) - Width 1.5 -Current Size (cm) - Depth 0.1 -Total Square Cm 3.45 -Photo Taken Yes -Epithelialization -Tunneling No -Undermining/Tunneling No -Circular Undermining No -Exudate Amt Medium -Exudate Type Serosanguineous -Wound Margin Distinct, Outline Attached -Granulation Amt Medium (34-66%) -Granulation Quality [place] -Slough/Fibrin Yes -Necrosis Amt Medium (34-66%) -Necrotic Tissue Type Adherent Slough -Structure Exposed N/A -Texture (Joyce-wound Skin Appearance) Assessed, Scarring -Moisture (Joyce-wound Skin Appearance) Assessed -Color (Joyce-wound Skin Appearance) Assessed -Temperature (Joyce-wound Skin No Abnormality Appearance) (Pt Warm) -Tenderness on Palpation (Joyce-wound No Skin Appearance) -Ulcer Cleansing Wound Cleanser -Foul Odor after Cleansing No -Anesthetic Used 5% Lidocaine Gel Lower Limb Edema Present Yes Right Calf (cm) 27.2 Right Ankle (cm) 16 - Nurse 2 - General Ulcer CM Notes Start: 01/13/25 14:53 Freq: Status: Active Protocol: Activity Type Activity Date Activity User E-sign Co-sign Detail Recorded Client Recorded Date Recorded By Document 01/13/25 15:14 [id number] 01/13/25 15:16 Document 01/20/25 15:20 DS [id number] 01/20/25 15:32 DS Edit Result 01/20/25 15:20 DS (1) [id number] 01/20/25 15:34 DS Document 01/27/25 15:23 DS [id number] 01/27/25 15:26 DS Document 02/03/25 14:53 DS [id number] 02/03/25 15:01 DS (1) #4 Rt med le - Offloading => No - Apply Skin Sub - 1st 25 sq cm - Legs => 1 - Epifix Mesh Application 1-4 (per sq cm => 11 ) 01/13/25 01/20/25 01/27/25 15:14 15:20 15:23 Wound Center Nurse 2 #4 Rt med le -Time 15:14 15:21 15:23 -Correct Patient Yes Yes Yes -Correct Side, Site, Position Yes Yes Yes -Correct Procedure Yes Yes Yes -Procedure Performed Yes Yes Yes -Type of Procedure Debridement Debridement Debridement -Clinical Debridement Subcutaneous Subcutaneous Subcutaneous -Tissue Removed Subcutaneous Subcutaneous Subcutaneous -Post Debridement (cm) - Length 2.7 2.5 2.4 -Post Debridement (cm) - Width 2 2.0 2.0 -Post Debridement (cm) - Depth 0.1 0.1 0.1 -Total Square (Post) (cm) 5.4 5.00 4.80 -Area of Debridement (cm) - Length 2.7 2.5 2.4 -Area of Debridement (cm) - Width 2 2.0 2.0 -Total Square (Area) (cm) 5.4 5.00 4.80 -Tunneling No No No -Undermining/Tunneling No No No -Circular Undermining No No No -Wound/Ulcer Outcome Not Healed Not Healed Not Healed -Ulcer Cleansing Rinsed/ gauze Rinsed/ Irrigated with Irrigated with Saline Saline -Foul Odor after Cleansing No No No -Bioengineered Tissue Yes Yes No -Type of Bioengineered Tissue Epifix Mesh Epifix Mesh -Expiration Date 07/08/29 07/08/29 -Product Lot Number [id number] -Percent Used 100 100 -Lot number of Saline Used [id number] -Bleeding Controlled with Pressure Pressure Pressure -Treatment Response Procedure Procedure Procedure Tolerated Well Tolerated Well Tolerated Well -Offloading No No -Debridement - Subq, 1st 20sq cm No No Yes -Apply Skin Sub - 1st 25 sq cm - Legs 1 1 -Epifix Application 1-4 (per sq cm) -Epifix Mesh Application 1-4 (per sq 11 11 cm) Pain Scale: 0-10 Numeric Is Patient Pain Free? Yes Yes Yes 02/03/25 14:53 Wound Center Nurse 2 #4 Rt med le -Time 14:53 -Correct Patient Yes -Correct Side, Site, Position Yes -Correct Procedure Yes -Procedure Performed Yes -Type of Procedure Debridement -Clinical Debridement Subcutaneous -Tissue Removed Subcutaneous -Post Debridement (cm) - Length 2.1 -Post Debridement (cm) - Width 1.4 -Post Debridement (cm) - Depth 0.1 -Total Square (Post) (cm) 2.94 -Area of Debridement (cm) - Length 2.1 -Area of Debridement (cm) - Width 1.4 -Total Square (Area) (cm) 2.94 -Tunneling No -Undermining/Tunneling No -Circular Undermining No -Wound/Ulcer Outcome Not Healed -Ulcer Cleansing gauze -Foul Odor after Cleansing No -Bioengineered Tissue Yes -Type of Bioengineered Tissue Epifix -Expiration Date 06/07/29 -Product Lot Number [id number] -Percent Used 100 -Lot number of Saline Used [id number] -Bleeding Controlled with Pressure -Treatment Response Procedure Tolerated Well -Offloading -Debridement - Subq, 1st 20sq cm No -Apply Skin Sub - 1st 25 sq cm - Legs 1 -Epifix Application 1-4 (per sq cm) 4 -Epifix Mesh Application 1-4 (per sq cm) Pain Scale: 0-10 Numeric Is Patient Pain Free? Yes - Nurse 3 - General Ulcer D/C NN Start: 01/13/25 14:53 Freq: Status: Active Protocol: Activity Type Activity Date Activity User E-sign Co-sign Detail Recorded Client Recorded Date Recorded By Document 01/13/25 15:24 ML [id number] 01/13/25 15:25 ML Document 01/20/25 15:45 [id number] 01/20/25 15:45 Document 01/27/25 15:31 DS [id number] 01/27/25 15:32 DS Document 02/03/25 15:26 JF [id number] 02/03/25 15:26 01/13/25 01/20/25 01/27/25 15:24 15:45 15:31 Wound Care Center Nurse 3 #4 Rt med le -Primary Dressing Applied Silicone Border Silicone Border Aquacel AG 4x4, Foam 6x6 Foam 4x4 Silicone Border Foam 4x4 -Aquacel AG 4x4 1 -Silicone Border Foam 4x4 1 1 -Silicone Border Foam 6x6 1 Pain Scale: 0-10 Numeric Is Patient Pain Free? Yes Yes Yes WC - Visit Discharge Discharge Condition Stable Stable Ambulatory Status Ambulatory Ambulatory Transportation Private Auto Private Auto Medication Reconcilliation completed & Yes provided to patient/care provider Clinical Summary of Care Provided Yes 02/03/25 15:26 Wound Care Center Nurse 3 #4 Rt med le -Primary Dressing Applied Silicone Border Foam 4x4 -Aquacel AG 4x4 -Silicone Border Foam 4x4 1 -Silicone Border Foam 6x6 Pain Scale: 0-10 Numeric Is Patient Pain Free? Yes WC - Visit Discharge Discharge Condition Stable Ambulatory Status Ambulatory Transportation Private Auto Medication Reconcilliation completed & Yes provided to patient/care provider Clinical Summary of Care Provided Yes Charges/Coding Procedures Integumentary [id number]: [id number] Skin sub graft trnk/arm/leg Assessment/Plan Assessment/Plan (1) Non-pressure chronic ulcer of right calf with fat layer exposed: CODE(S): L97.212 - Non-pressure chronic ulcer of right calf with fat layer exposed (2) Non-pressure chronic ulcer of right lower leg with fat layer exposed: CODE(S): L97.912 - Non-pressure chronic ulcer of unspecified part of right lower leg with fat layer exposed (3) Traumatic open wound of right lower leg: CODE(S): S81.801A - Unspecified open wound, right lower leg, initial encounter QUALIFIERS: Encounter type: subsequent encounter Qualified Code(s): S81.801D - Unspecified open wound, right lower leg, subsequent encounter (4) Lumbar scoliosis: CODE(S): M41.9 - Scoliosis, unspecified QUALIFIERS: Scoliosis type: other secondary scoliosis Qualified Code(s): M41.56 - Other secondary scoliosis, lumbar region (5) Low back pain: CODE(S): M54.50 - Low back pain, unspecified QUALIFIERS: Chronicity: chronic Back pain laterality: unspecified Sciatica presence: unspecified whether sciatica present Qualified Code(s): M54.50 - Low back pain, unspecified; G89.29 - Other chronic pain (6) DDD (degenerative disc disease), lumbosacral: CODE(S): M51.37 - Other intervertebral disc degeneration, lumbosacral region QUALIFIERS: Disc-related pain type: unspecified whether pain present Qualified Code(s): M51.379 - Other intervertebral disc degeneration, lumbosacral region without mention of lumbar back pain or lower extremity pain (7) Hypothyroidism (acquired): CODE(S): E03.9 - Hypothyroidism, unspecified (8) Cataracts, bilateral: CODE(S): H26.9 - Unspecified cataract QUALIFIERS: Cataract type: unspecified Qualified Code(s): H26.9 - Unspecified cataract (9) History of tonsillectomy: CODE(S): Z90.89 - Acquired absence of other organs (10) History of IBS: CODE(S): Z87.19 - Personal history of other diseases of the digestive system (11) Former smoker: CODE(S): Z87.891 - Personal history of nicotine dependence (12) History of lumbar spinal fusion: CODE(S): Z98.1 - Arthrodesis status (13) History of hysterectomy: CODE(S): Z90.710 - Acquired absence of both cervix and uterus (14) History of cervical discectomy: CODE(S): Z98.890 - Other specified postprocedural states (15) History of total hip replacement: CODE(S): Z96.649 - Presence of unspecified artificial hip joint QUALIFIERS: Laterality: unspecified laterality Qualified Code(s): Z96.649 - Presence of unspecified artificial hip joint (16) Status post spinal disc removal: CODE(S): Z98.890 - Other specified postprocedural states PLAN: Plan This is a 75-year-old female who presented with traumatic wounds in both lower extremities. Although the patient does not relate significant swelling in her lower extremities, measures to prevent such swelling have been thoroughly discussed and implemented. The patient has been encouraged to elevate her lower extremities as much as possible. She has been advised to refrain from prolonged, idle sitting. She is to continue wearing her Tubigrips bilaterally on a daily basis. Activity has been encouraged. The patient has been encouraged to optimize her nutritional intake. The patient attests to the fact that her appetite is good, and she is consuming a well-balanced diet. The traumatic wounds in the left lower extremity remain completely healed and epithelialized. A traumatic wound persists on the right pretibial surface, which is progressively, though slowly, decreasing in size. An EpiFix allograft (#10) was applied to the right pretibial ulceration at this visit. The allograft and its dressing are to be left intact and undisturbed until the patient's return visit in 1 week. Total time: 26 minutes
--- NOTE | 2025-02-04 10:00 | WC ---
PHOTO-RIGHT WEEKS 02/03/25
== END 2025-02-06 23:59 | disposition home or self-care (01) ==
LOC: WC 14:30
PROVIDERS: PCP Family Medicine Geriatric Medicine; Referring Provider Family Medicine Geriatric Medicine; Visit Provider Surgery
DX: L97.212 Non-pressure chronic ulcer of right calf with fat layer exposed (principal); Z98.1 Arthrodesis status; Z90.710 Acquired absence of both cervix and uterus; Z87.891 Personal history of nicotine dependence; G89.29 Other chronic pain; H26.9 Unspecified cataract; M51.370 Other intervertebral disc degeneration, lumbosacral region with discogenic back pain only; E03.9 Hypothyroidism, unspecified; S81.801D Unspecified open wound, right lower leg, subsequent encounter; M54.50 Low back pain, unspecified; Z87.19 Personal history of other diseases of the digestive system; Z90.89 Acquired absence of other organs; Z96.649 Presence of unspecified artificial hip joint; M41.56 Other secondary scoliosis, lumbar region
CPT/HCPCS: 11042; 15271; Q4186

== ENCOUNTER 2025-03-03 14:30 | Outpatient (RCR) | payer MEDICARE, OTHER, SELFPAY ==
[2025-02-10 14:35] VITALS: BP 154/70; PULSE 69; RESP 18; TEMP 36.6
--- NOTE | 2025-02-10 15:25 | WC ---
PHOTO-RIGHT WEEKS 02/10/25
--- NOTE | 2025-02-10 16:12 | PCM.WC.HP ---
History of Present Illness Date of Service: 02/10/25 Chief Complaint: Right lower extremity traumatic wound History of Wound: This is a 75-year-old female who has presented repeatedly with traumatic wounds to both lower extremities. A wound on the right pretibial surface persists, though all other lower extremity wounds have healed. The patient is mobile and active. She denies swelling in her legs. She sleeps on a flat surface at night. She denies a history of thrombophlebitis. The patient denies a history of congestive heart failure, myocardial infarction, diabetes mellitus, cerebrovascular accident, hypertension, renal disease, and pulmonary disease. She has a history of hypothyroidism. A limited venous duplex examination was performed on October 26, 2022, examining only the right lower extremity, and revealing no evidence of thrombophlebitis. Valvular competence was not fully evaluated. [facility] Medical History Non-pressure chronic ulcer of right calf with fat layer exposed Non-pressure chronic ulcer of right lower leg with fat layer exposed Traumatic open wound of right lower leg Traumatic open wound of left lower leg Non-pressure chronic ulcer of left lower leg with fat layer exposed Non-pressure chronic ulcer of right lower leg with fat layer exposed Traumatic open wound of right lower leg with delayed healing Traumatic open wound of left lower leg with delayed healing Wears glasses Anxiety Alcohol use History of steroid therapy Easy bruising Back pain Injury of back Migraine headache Syncope History of IBS Former smoker Leg cramps History of edema History of stress test Cataracts, bilateral Arthritis Anemia Vitamin D deficiency, unspecified Hypothyroidism Home Medications ?Medication ?Instructions ?Recorded ?Last Taken ?Type lidocaine 5 % topical patch 2 patch topical DAILY 05/03/17 1 Day Ago History ~09/21/17 meloxicam 15 mg tablet 15 mg PO QDAY 05/03/17 09/22/17 History doxepin 10 mg capsule 10 mg PO QHS 12/16/19 Unknown History folic acid 400 mcg tablet 0.4 mg PO DAILY@0800 12/16/19 Unknown History linaclotide 145 mcg capsule 145 mcg PO DAILY 12/16/19 Unknown History estradiol 0.1 mg/24 hr semiweekly 2 patch transdermal MOTH 03/15/20 Unknown History transdermal patch (Bessie) acetaminophen 500 mg tablet 1,000 mg PO BID 01/06/22 Unknown History vitamin I50-ewirhux B1 100 mg-1 1 ml IM .QMO 01/06/22 Unknown History mg/mL intramuscular solution levothyroxine 50 mcg tablet 50 mcg PO DAILY 03/18/24 Unknown History gabapentin 100 mg capsule 100 mg PO BID 05/07/24 Unknown History loratadine 10 mg tablet 10 mg PO .prn 05/07/24 Unknown History sulfamethoxazole 800 1 tab PO Q12H #14 tabs 05/27/24 Unknown Rx mg-trimethoprim 160 mg tablet (Bactrim DS) cephalexin 500 mg capsule 500 mg PO 4X/DAY 07/08/24 Unknown History doxycycline hyclate 100 mg tablet 100 mg PO BID 07/08/24 Unknown History sulfamethoxazole 800 1 tab PO Q12H #14 tabs 07/08/24 Unknown Rx mg-trimethoprim 160 mg tablet (Bactrim DS) sulfamethoxazole 800 1 tab PO Q12H wound infection #14 09/10/24 Unknown Rx mg-trimethoprim 160 mg tablet tabs (Bactrim DS) Allergy/AdvReac Type Severity Reaction Status Date / Time No Known Allergies Allergy Verified 05/07/24 11:09 Family History Mother Rheumatoid arthritis Father Pancreatic cancer Cancer Grandfather Myocardial infarction Grandmother Thyroid disorder Surgical History Status post spinal disc removal History of tonsillectomy History of lumbar spinal fusion History of total hip replacement History of hysterectomy History of cervical discectomy Social History household members: spouse Smoking Status: Never smoker alcohol intake: current alcohol intake frequency: a few times a week Alcohol type: wine substance use type: does not use what type of physical activity do you participate in: other details: physical therapy frequency: 1-2 times per week Vital Signs Vital Signs Vital Signs: 02/10/25 14:35 Temperature 97.8 F Temperature Source Temporal Pulse Rate 69 Respiratory Rate 18 Blood Pressure 154/70 H Blood Pressure Mean 98 Blood Pressure Source Monitor Blood Pressure Position Semi-Fowlers Blood Pressure Location Left Arm Physical Exam Const alert, oriented x3, no apparent distress, average body habitus and no limitations Constitutional Narrative: The patient's BMI is 19.7. She is of thin body habitus. General Appearance: cooperative, comfortable, well kempt and well developed Orientation / Consciousness: awake, oriented to person, oriented to place and oriented to time Exam Limitations: no limitations HEENT normocephalic, head/scalp atraumatic and hearing grossly normal bilaterally Head and Scalp: normal to inspection, normocephalic and atraumatic Face and Sinus: normal facial exam Nose: external nose normal External Ear: external ears normal Eyes EOMs intact bilaterally General Eye: normal appearance of both eyes Neck full ROM Resp normal respiratory effort, normal air movement, no retractions and no use of accessory muscles Effort and Inspection: able to speak in complete sentences Extremity no clubbing, cyanosis or edema and no calf tenderness Skin Wound Narrative: The patient's lower extremities appear warm and well-perfused. Pedal pulses are easily palpable bilaterally. There is no significant swelling or edema in the patient's lower extremities. The wounds on the patient's left lower extremity remain completely healed and epithelialized. The traumatic wound on the patient's right pretibial surface appears pink and healthy in appearance with a small amount of bioburden. There is evidence of granulation tissue and peripheral epithelialization. There is no sign of infection or cellulitis. Wound dimensions are documented elsewhere. The wound has diminished in size within the last week. Wound margins are well beveled. Hair: normal Neuro oriented x3, CN's II-XII intact bilaterally, moves all extremities, no focal motor deficits and no sensory deficits noted Sensorium / Orientation: awake, alert, oriented to person, oriented to place and oriented to time Speech: speech normal Psych Appearance: grossly normal and appropriate Attitude: calm Activity / Motor Behavior: appropriate eye contact Speech: normal speech Mood & Affect: euthymic mood Thought Process: normal thought process Thought Content: normal thought content Attention / Concentration: attention grossly intact Memory / Cognition: memory grossly intact Insight: insight good Judgement: judgement good Debridement Note Debridement Note Wound debrided: Traumatic right pretibial wound Laterality: Right Type of Debridement: Excisional debridement Anesthesia Used: 5% Lidocaine Gel and Cetacaine Depth: Down to and including healthy tissue and in the subcutaneous layer Percentage of wound debrided: 100 Instrument Used: 5mm curette Tissue Removed: Bioburden and residual EpiFix allograft Severity: Fat Layer Exposed Amount of bleeding with debridement: Mild Bleeding Controlled with: Compression and gauze Patient tolerated procedure: Patient tolerated procedure well Post-Debridement Measurements and Additional Note: Post-Debridement Measurements/Treatment - Nurse 1 - General Ulcer Assessment Start: 02/10/25 14:35 Freq: Status: Active Protocol: QUIANA Activity Type Activity Date Activity User E-sign Co-sign Detail Recorded Client Recorded Date Recorded By Document 02/10/25 14:35 APOORVA [id number] 02/10/25 14:37 RB 02/10/25 14:35 WC - Today's Visit Information Type of service Follow-up Visit (Physician/COLLAR SETTER ) Arrival Mode Ambulatory Transfer Assistance None Patient Identification Verified (Name & Yes ) Patient Requires Transmission-Based No Precautions Vital Signs Temperature (97.8 F-99.1 F) 97.8 F Temperature Source Temporal Pulse Rate (60-100) 69 Pulse Location Monitor Respiratory Rate (12-18) 18 Respiratory rate source Observation Blood Pressure (90/60-120/80) 154/70 H Blood Pressure Mean 98 Source Monitor Position Semi-Fowlers Blood Pressure Location Left Arm History Since Last Visit- (Skip if this is Patient's initial visit) Have you changed medications since your No last visit? Any new allergies or adverse reactions No Had a fall/change in ADL's that may No increase risk of falls Signs or symptoms of abuse and/or No neglect since last visit Have you been in the hospital since your No last visit? Has dressing in place as prescribed Yes Has compression in place as prescribed Yes Has offloadiing in place as prescribed N/A Experienced any changes in pain level or No management Left Footwear Regular Shoe Right Footwear Regular Shoe Pain Scale: 0-10 Numeric Is Patient Pain Free? Yes [facility] Nurse 1 - General Ulcer Measurement Start: 02/10/25 14:35 Freq: Status: Active Protocol: Activity Type Activity Date Activity User E-sign Co-sign Detail Recorded Client Recorded Date Recorded By Document 02/10/25 14:35 APOORVA [id number] 02/10/25 14:37 RB 02/10/25 14:35 Wound Center Nurse 1 #4 Rt med le -Combined with other wound No -Current Size (cm) - Length 1.8 -Current Size (cm) - Width 1.4 -Current Size (cm) - Depth 0.1 -Total Square Cm 2.52 -Photo Taken Yes -Tunneling No -Undermining/Tunneling No -Circular Undermining No -Exudate Amt Medium -Exudate Type Serosanguineous -Wound Margin Distinct, Outline Attached -Granulation Amt Medium (34-66%) -Granulation Quality [place] -Slough/Fibrin Yes -Necrosis Amt Medium (34-66%) -Necrotic Tissue Type Adherent Slough -Structure Exposed N/A -Texture (Joyce-wound Skin Appearance) Assessed -Moisture (Joyce-wound Skin Appearance) Assessed -Color (Joyce-wound Skin Appearance) Assessed -Temperature (Joyce-wound Skin No Abnormality Appearance) (Pt Warm) -Tenderness on Palpation (Joyce-wound No Skin Appearance) -Ulcer Cleansing Wound Cleanser -Foul Odor after Cleansing No -Anesthetic Used 5% Lidocaine Gel Lower Limb Edema Present Yes Right Calf (cm) 28 Right Ankle (cm) 16.6 WC - Nurse 2 - General Ulcer CM Notes Start: 02/10/25 14:35 Freq: Status: Active Protocol: Activity Type Activity Date Activity User E-sign Co-sign Detail Recorded Client Recorded Date Recorded By Document 02/10/25 14:56 DS [id number] 02/10/25 15:02 DS 02/10/25 14:56 Wound Center Nurse 2 #4 Rt med le -Time 14:56 -Correct Patient Yes -Correct Side, Site, Position Yes -Correct Procedure Yes -Procedure Performed Yes -Type of Procedure Debridement -Clinical Debridement Subcutaneous -Tissue Removed Subcutaneous -Post Debridement (cm) - Length 1.9 -Post Debridement (cm) - Width 1.2 -Post Debridement (cm) - Depth 0.1 -Total Square (Post) (cm) 2.28 -Area of Debridement (cm) - Length 1.9 -Area of Debridement (cm) - Width 1.2 -Total Square (Area) (cm) 2.28 -Tunneling No -Undermining/Tunneling No -Circular Undermining No -Wound/Ulcer Outcome Not Healed -Ulcer Cleansing gauze -Foul Odor after Cleansing No -Bioengineered Tissue No -Bleeding Controlled with Pressure -Treatment Response Procedure Tolerated Well -Debridement - Subq, 1st 20sq cm Yes Pain Scale: 0-10 Numeric Is Patient Pain Free? Yes WC - Nurse 3 - General Ulcer D/C NN Start: 02/10/25 14:35 Freq: Status: Active Protocol: Activity Type Activity Date Activity User E-sign Co-sign Detail Recorded Client Recorded Date Recorded By Document 02/10/25 15:15 JAIDEN [id number] 02/10/25 15:15 JAIDEN 02/10/25 15:15 Wound Care Center Nurse 3 #4 Rt med le -Ulcer Cleansing Rinsed/ Irrigated with Saline -Foul Odor after Cleansing No -Primary Dressing Applied Aquacel Extra, Silicone Border Foam 4x4 -Aquacel Extra 1 -Silicone Border Foam 4x4 1 Pain Scale: 0-10 Numeric Is Patient Pain Free? Yes WC - Visit Discharge Discharge Condition Stable Ambulatory Status Ambulatory Transportation Private Auto Medication Reconcilliation completed & Yes provided to patient/care provider Clinical Summary of Care Provided Yes Charges/Coding Procedures Integumentary [id number]: [id number] [place] subq tissue 20 sq cm/< Assessment/Plan Assessment/Plan (1) Non-pressure chronic ulcer of right calf with fat layer exposed: CODE(S): L97.212 - Non-pressure chronic ulcer of right calf with fat layer exposed (2) Non-pressure chronic ulcer of right lower leg with fat layer exposed: CODE(S): L97.912 - Non-pressure chronic ulcer of unspecified part of right lower leg with fat layer exposed (3) Traumatic open wound of right lower leg: CODE(S): S81.801A - Unspecified open wound, right lower leg, initial encounter QUALIFIERS: Encounter type: subsequent encounter Qualified Code(s): S81.801D - Unspecified open wound, right lower leg, subsequent encounter (4) Lumbar scoliosis: CODE(S): M41.9 - Scoliosis, unspecified QUALIFIERS: Scoliosis type: other secondary scoliosis Qualified Code(s): M41.56 - Other secondary scoliosis, lumbar region (5) Low back pain: CODE(S): M54.50 - Low back pain, unspecified QUALIFIERS: Chronicity: chronic Back pain laterality: unspecified Sciatica presence: unspecified whether sciatica present Qualified Code(s): M54.50 - Low back pain, unspecified; G89.29 - Other chronic pain (6) DDD (degenerative disc disease), lumbosacral: CODE(S): M51.37 - Other intervertebral disc degeneration, lumbosacral region QUALIFIERS: Disc-related pain type: unspecified whether pain present Qualified Code(s): M51.379 - Other intervertebral disc degeneration, lumbosacral region without mention of lumbar back pain or lower extremity pain (7) Hypothyroidism (acquired): CODE(S): E03.9 - Hypothyroidism, unspecified (8) Cataracts, bilateral: CODE(S): H26.9 - Unspecified cataract QUALIFIERS: Cataract type: unspecified Qualified Code(s): H26.9 - Unspecified cataract (9) History of tonsillectomy: CODE(S): Z90.89 - Acquired absence of other organs (10) History of IBS: CODE(S): Z87.19 - Personal history of other diseases of the digestive system (11) Former smoker: CODE(S): Z87.891 - Personal history of nicotine dependence (12) History of lumbar spinal fusion: CODE(S): Z98.1 - Arthrodesis status (13) History of hysterectomy: CODE(S): Z90.710 - Acquired absence of both cervix and uterus (14) History of cervical discectomy: CODE(S): Z98.890 - Other specified postprocedural states (15) History of total hip replacement: CODE(S): Z96.649 - Presence of unspecified artificial hip joint QUALIFIERS: Laterality: unspecified laterality Qualified Code(s): Z96.649 - Presence of unspecified artificial hip joint (16) Status post spinal disc removal: CODE(S): Z98.890 - Other specified postprocedural states PLAN: Plan This is a 75-year-old female who presented with traumatic wounds in both lower extremities. Although the patient does not relate significant swelling in her lower extremities, measures to prevent such swelling have been thoroughly discussed and implemented. The patient has been encouraged to elevate her lower extremities as much as possible. She has been advised to refrain from prolonged, idle sitting. She is to continue wearing her Tubigrips bilaterally on a daily basis. Activity has been encouraged. The patient has been encouraged to optimize her nutritional intake. The patient attests to the fact that her appetite is good, and she is consuming a well-balanced diet. The traumatic wounds in the left lower extremity remain completely healed and epithelialized. A traumatic wound persists on the right pretibial surface, which is progressively, though slowly, decreasing in size. A total of 10 EpiFix allografts have been applied in the recent past. We are to implement the use of moistened Aquacel Extra topically to the wound on a daily basis. The patient has been instructed in the appropriate means of application, and has been provided the necessary supplies. She is to return in 1 week for reevaluation. Total time: 24 minutes
[2025-02-17 14:29] VITALS: BP 140/82; PULSE 70; RESP 16; TEMP 36.9
--- NOTE | 2025-02-17 15:38 | PCM.WC.HP ---
History of Present Illness Date of Service: 02/17/25 Chief Complaint: Right lower extremity traumatic wound History of Wound: This is a 75-year-old female who has presented repeatedly with traumatic wounds to both lower extremities. A wound on the right pretibial surface persists, though all other lower extremity wounds have healed. The patient is mobile and active. She denies swelling in her legs. She sleeps on a flat surface at night. She denies a history of thrombophlebitis. The patient denies a history of congestive heart failure, myocardial infarction, diabetes mellitus, cerebrovascular accident, hypertension, renal disease, and pulmonary disease. She has a history of hypothyroidism. A limited venous duplex examination was performed on October 26, 2022, examining only the right lower extremity, and revealing no evidence of thrombophlebitis. Valvular competence was not fully evaluated. [facility] Medical History Non-pressure chronic ulcer of right calf with fat layer exposed Non-pressure chronic ulcer of right lower leg with fat layer exposed Traumatic open wound of right lower leg Traumatic open wound of left lower leg Non-pressure chronic ulcer of left lower leg with fat layer exposed Non-pressure chronic ulcer of right lower leg with fat layer exposed Traumatic open wound of right lower leg with delayed healing Traumatic open wound of left lower leg with delayed healing Wears glasses Anxiety Alcohol use History of steroid therapy Easy bruising Back pain Injury of back Migraine headache Syncope History of IBS Former smoker Leg cramps History of edema History of stress test Cataracts, bilateral Arthritis Anemia Vitamin D deficiency, unspecified Hypothyroidism Home Medications ?Medication ?Instructions ?Recorded ?Last Taken ?Type lidocaine 5 % topical patch 2 patch topical DAILY 05/03/17 1 Day Ago History ~09/21/17 meloxicam 15 mg tablet 15 mg PO QDAY 05/03/17 09/22/17 History doxepin 10 mg capsule 10 mg PO QHS 12/16/19 Unknown History folic acid 400 mcg tablet 0.4 mg PO DAILY@0800 12/16/19 Unknown History linaclotide 145 mcg capsule 145 mcg PO DAILY 12/16/19 Unknown History estradiol 0.1 mg/24 hr semiweekly 2 patch transdermal MOTH 03/15/20 Unknown History transdermal patch (Bessie) acetaminophen 500 mg tablet 1,000 mg PO BID 01/06/22 Unknown History vitamin [id number] B1 100 mg-1 1 ml IM .QMO 01/06/22 Unknown History mg/mL intramuscular solution levothyroxine 50 mcg tablet 50 mcg PO DAILY 03/18/24 Unknown History gabapentin 100 mg capsule 100 mg PO BID 05/07/24 Unknown History loratadine 10 mg tablet 10 mg PO .prn 05/07/24 Unknown History sulfamethoxazole 800 1 tab PO Q12H #14 tabs 05/27/24 Unknown Rx mg-trimethoprim 160 mg tablet (Bactrim DS) cephalexin 500 mg capsule 500 mg PO 4X/DAY 07/08/24 Unknown History doxycycline hyclate 100 mg tablet 100 mg PO BID 07/08/24 Unknown History sulfamethoxazole 800 1 tab PO Q12H #14 tabs 07/08/24 Unknown Rx mg-trimethoprim 160 mg tablet (Bactrim DS) sulfamethoxazole 800 1 tab PO Q12H wound infection #14 09/10/24 Unknown Rx mg-trimethoprim 160 mg tablet tabs (Bactrim DS) Allergy/AdvReac Type Severity Reaction Status Date / Time No Known Allergies Allergy Verified 05/07/24 11:09 Family History Mother Rheumatoid arthritis Father Pancreatic cancer Cancer Grandfather Myocardial infarction Grandmother Thyroid disorder Surgical History Status post spinal disc removal History of tonsillectomy History of lumbar spinal fusion History of total hip replacement History of hysterectomy History of cervical discectomy Social History household members: spouse Smoking Status: Never smoker alcohol intake: current alcohol intake frequency: a few times a week Alcohol type: wine substance use type: does not use what type of physical activity do you participate in: other details: physical therapy frequency: 1-2 times per week Vital Signs Vital Signs Vital Signs: 02/17/25 14:29 Temperature 98.5 F Temperature Source Temporal Pulse Rate 70 Respiratory Rate 16 Blood Pressure 140/82 H Blood Pressure Mean 101 Blood Pressure Source Monitor Blood Pressure Position Sitting Blood Pressure Location Left Arm Oxygen Delivery Method Room Air Physical Exam Const alert, oriented x3, no apparent distress, average body habitus and no limitations Constitutional Narrative: The patient's BMI is 19.7. She is of thin body habitus. General Appearance: cooperative, comfortable, well kempt and well developed Orientation / Consciousness: awake, oriented to person, oriented to place and oriented to time Exam Limitations: no limitations HEENT normocephalic, head/scalp atraumatic and hearing grossly normal bilaterally Head and Scalp: normal to inspection, normocephalic and atraumatic Face and Sinus: normal facial exam Nose: external nose normal External Ear: external ears normal Eyes EOMs intact bilaterally General Eye: normal appearance of both eyes Neck full ROM Resp normal respiratory effort, normal air movement, no retractions and no use of accessory muscles Effort and Inspection: able to speak in complete sentences Extremity no clubbing, cyanosis or edema and no calf tenderness Skin Wound Narrative: The patient's lower extremities appear warm and well-perfused. Pedal pulses are easily palpable bilaterally. There is no significant swelling or edema in the patient's lower extremities. The wounds on the patient's left lower extremity remain completely healed and epithelialized. The traumatic wound on the patient's right pretibial surface appears pink and healthy in appearance with a small amount of bioburden. There is evidence of granulation tissue and increasing peripheral epithelialization. There is no sign of infection or cellulitis. Wound dimensions are documented elsewhere. The wound has diminished in size within the last week. Wound margins are well beveled. Hair: normal Neuro oriented x3, CN's II-XII intact bilaterally, moves all extremities, no focal motor deficits and no sensory deficits noted Sensorium / Orientation: awake, alert, oriented to person, oriented to place and oriented to time Speech: speech normal Psych Appearance: grossly normal and appropriate Attitude: calm Activity / Motor Behavior: appropriate eye contact Speech: normal speech Mood & Affect: euthymic mood Thought Process: normal thought process Thought Content: normal thought content Attention / Concentration: attention grossly intact Memory / Cognition: memory grossly intact Insight: insight good Judgement: judgement good Debridement Note Debridement Note Wound debrided: Traumatic right pretibial wound Laterality: Right Type of Debridement: Excisional debridement Anesthesia Used: 5% Lidocaine Gel and Cetacaine Depth: Down to and including healthy tissue and in the subcutaneous layer Percentage of wound debrided: 100 Instrument Used: 5mm curette Tissue Removed: Bioburden Severity: Fat Layer Exposed Amount of bleeding with debridement: Mild Bleeding Controlled with: Compression and gauze Patient tolerated procedure: Patient tolerated procedure well Post-Debridement Measurements and Additional Note: Post-Debridement Measurements/Treatment - Nurse 1 - General Ulcer Assessment Start: 02/10/25 14:35 Freq: Status: Active Protocol: QUIANA Activity Type Activity Date Activity User E-sign Co-sign Detail Recorded Client Recorded Date Recorded By Document 02/10/25 14:35 RB [id number] 02/10/25 14:37 RB Document 02/17/25 14:29 TS [id number] 02/17/25 14:33 TS 02/10/25 02/17/25 14:35 14:29 WC - Today's Visit Information Type of service Follow-up Visit Follow-up Visit (Physician/CANT GANG SAWYER (Physician/CANT GANG SAWYER ) ) Arrival Mode Ambulatory Ambulatory Transfer Assistance None Patient Identification Verified (Name & Yes Yes ) Patient Requires Transmission-Based No No Precautions Safety Precautions Fall Prevention Vital Signs Temperature (97.8 F-99.1 F) 97.8 F 98.5 F Temperature Source Temporal Temporal Pulse Rate (60-100) 69 70 Pulse Location Monitor Monitor Respiratory Rate (12-18) 18 16 Respiratory rate source Observation Observation Oxygen Delivery Method Room Air Blood Pressure (90/60-120/80) 154/70 H 140/82 H Blood Pressure Mean 98 101 Source Monitor Monitor Position Semi-Fowlers Sitting Blood Pressure Location Left Arm Left Arm History Since Last Visit- (Skip if this is Patient's initial visit) Have you changed medications since your No No last visit? Any new allergies or adverse reactions No No Had a fall/change in ADL's that may No No increase risk of falls Signs or symptoms of abuse and/or No No neglect since last visit Have you been in the hospital since your No No last visit? Has dressing in place as prescribed Yes Yes Has compression in place as prescribed Yes N/A Has offloadiing in place as prescribed N/A N/A Experienced any changes in pain level or No management Left Footwear Regular Shoe Regular Shoe Right Footwear Regular Shoe Regular Shoe Pain Scale: 0-10 Numeric Is Patient Pain Free? Yes Yes - Nurse 1 - General Ulcer Measurement Start: 02/10/25 14:35 Freq: Status: Active Protocol: Activity Type Activity Date Activity User E-sign Co-sign Detail Recorded Client Recorded Date Recorded By Document 02/10/25 14:35 RB [id number] 02/10/25 14:37 RB Document 02/17/25 14:29 TS [id number] 02/17/25 14:33 TS 02/10/25 02/17/25 14:35 14:29 Wound Center Nurse 1 #4 Rt med le -Combined with other wound No No -Current Size (cm) - Length 1.8 1.6 -Current Size (cm) - Width 1.4 1 -Current Size (cm) - Depth 0.1 0.1 -Total Square Cm 2.52 1.6 -Date of Last Picture (Recall this 02/17/25 field) -Photo Taken Yes Yes -Tunneling No No -Undermining/Tunneling No No -Circular Undermining No No -Exudate Amt Medium Small -Exudate Type Serosanguineous Serous -Wound Margin Distinct, Distinct, Outline Outline Attached Attached -Granulation Amt Medium (34-66%) Medium (34-66%) -Granulation Quality Custer Custer,Red -Slough/Fibrin Yes -Necrosis Amt Medium (34-66%) -Necrotic Tissue Type Adherent Slough -Structure Exposed N/A -Texture (Joyce-wound Skin Appearance) Assessed Assessed -Moisture (Joyce-wound Skin Appearance) Assessed Assessed -Color (Joyce-wound Skin Appearance) Assessed Assessed -Temperature (Joyce-wound Skin No Abnormality No Abnormality Appearance) (Pt Warm) (Pt Warm) -Tenderness on Palpation (Joyce-wound No Skin Appearance) -Ulcer Cleansing Wound Cleanser Soap and Water -Foul Odor after Cleansing No No -Anesthetic Used 5% Lidocaine 5% Lidocaine Gel Gel Lower Limb Edema Present Yes No Right Calf (cm) 28 Point of measurement (cm from the medial 16.5 instep) Right Ankle (cm) 16.6 Point of Measurement (cm from the medial 28 instep) WC - Nurse 2 - General Ulcer CM Notes Start: 02/10/25 14:35 Freq: Status: Active Protocol: Activity Type Activity Date Activity User E-sign Co-sign Detail Recorded Client Recorded Date Recorded By Document 02/10/25 14:56 DS [id number] 02/10/25 15:02 DS Document 02/17/25 14:45 DS [id number] 02/17/25 14:49 DS 02/10/25 02/17/25 14:56 14:45 Wound Center Nurse 2 #4 Rt med le -Time 14:56 14:45 -Correct Patient Yes Yes -Correct Side, Site, Position Yes Yes -Correct Procedure Yes Yes -Procedure Performed Yes Yes -Type of Procedure Debridement Debridement -Clinical Debridement Subcutaneous Subcutaneous -Tissue Removed Subcutaneous Subcutaneous -Post Debridement (cm) - Length 1.9 1.5 -Post Debridement (cm) - Width 1.2 0.8 -Post Debridement (cm) - Depth 0.1 0.1 -Total Square (Post) (cm) 2.28 1.20 -Area of Debridement (cm) - Length 1.9 1.5 -Area of Debridement (cm) - Width 1.2 0.8 -Total Square (Area) (cm) 2.28 1.20 -Tunneling No No -Undermining/Tunneling No No -Circular Undermining No -Wound/Ulcer Outcome Not Healed Not Healed -Ulcer Cleansing gauze gauze -Foul Odor after Cleansing No No -Bioengineered Tissue No No -Bleeding Controlled with Pressure Pressure -Treatment Response Procedure Procedure Tolerated Well Tolerated Well -Debridement - Subq, 1st 20sq cm Yes Yes Pain Scale: 0-10 Numeric Is Patient Pain Free? Yes Yes - Nurse 3 - General Ulcer D/C NN Start: 02/10/25 14:35 Freq: Status: Active Protocol: Activity Type Activity Date Activity User E-sign Co-sign Detail Recorded Client Recorded Date Recorded By Document 02/10/25 15:15 [id number] 02/10/25 15:15 Document 02/17/25 14:49 RB [id number] 02/17/25 14:50 RB Edit Result 02/17/25 14:49 RB (1) [id number] 02/17/25 15:10 RB (1) #4 Rt med le - Primary Dressing Applied C Hydrogel, => AMD Dressing 4x4,C NonAdherent => Hydrogel,Silicone Contact Layer => Border Foam 4x4 - AMD Dressing 4x4 => 1 - Silicone Border Foam 4x4 => 1 RLE - Size D ($) 2 => 1 02/10/25 02/17/25 15:15 14:49 Wound Care Center Nurse 3 #4 Rt med le -Ulcer Cleansing Rinsed/ Rinsed/ Irrigated with Irrigated with Saline Saline -Foul Odor after Cleansing No -Primary Dressing Applied Aquacel Extra, AMD Dressing Silicone Border 4x4,C Hydrogel, Foam 4x4 Silicone Border Foam 4x4 -Primary Dressing Covered/Secured with Dry Gauze, Secured with Tape -AMD Dressing 4x4 1 -Aquacel Extra 1 -Hydrogel 1 -Silicone Border Foam 4x4 1 1 RLE -Tubular Bandage Double Layer -Size of Tubigrip Used Size D -Size D ($) 1 Treatment Response Procedure Tolerated Well Pain Scale: 0-10 Numeric Is Patient Pain Free? Yes Yes WC - Visit Discharge Discharge Condition Stable Stable Ambulatory Status Ambulatory Ambulatory Transportation Private Auto Private Auto Medication Reconcilliation completed & Yes No provided to patient/care provider Clinical Summary of Care Provided Yes Yes Charges/Coding Procedures Integumentary [id number]: [id number] [place] subq tissue 20 sq cm/< Assessment/Plan Assessment/Plan (1) Non-pressure chronic ulcer of right calf with fat layer exposed: CODE(S): L97.212 - Non-pressure chronic ulcer of right calf with fat layer exposed (2) Non-pressure chronic ulcer of right lower leg with fat layer exposed: CODE(S): L97.912 - Non-pressure chronic ulcer of unspecified part of right lower leg with fat layer exposed (3) Traumatic open wound of right lower leg: CODE(S): S81.801A - Unspecified open wound, right lower leg, initial encounter QUALIFIERS: Encounter type: subsequent encounter Qualified Code(s): S81.801D - Unspecified open wound, right lower leg, subsequent encounter (4) Lumbar scoliosis: CODE(S): M41.9 - Scoliosis, unspecified QUALIFIERS: Scoliosis type: other secondary scoliosis Qualified Code(s): M41.56 - Other secondary scoliosis, lumbar region (5) Low back pain: CODE(S): M54.50 - Low back pain, unspecified QUALIFIERS: Chronicity: chronic Back pain laterality: unspecified Sciatica presence: unspecified whether sciatica present Qualified Code(s): M54.50 - Low back pain, unspecified; G89.29 - Other chronic pain (6) DDD (degenerative disc disease), lumbosacral: CODE(S): M51.37 - Other intervertebral disc degeneration, lumbosacral region QUALIFIERS: Disc-related pain type: unspecified whether pain present Qualified Code(s): M51.379 - Other intervertebral disc degeneration, lumbosacral region without mention of lumbar back pain or lower extremity pain (7) Hypothyroidism (acquired): CODE(S): E03.9 - Hypothyroidism, unspecified (8) Cataracts, bilateral: CODE(S): H26.9 - Unspecified cataract QUALIFIERS: Cataract type: unspecified Qualified Code(s): H26.9 - Unspecified cataract (9) History of tonsillectomy: CODE(S): Z90.89 - Acquired absence of other organs (10) History of IBS: CODE(S): Z87.19 - Personal history of other diseases of the digestive system (11) Former smoker: CODE(S): Z87.891 - Personal history of nicotine dependence (12) History of lumbar spinal fusion: CODE(S): Z98.1 - Arthrodesis status (13) History of hysterectomy: CODE(S): Z90.710 - Acquired absence of both cervix and uterus (14) History of cervical discectomy: CODE(S): Z98.890 - Other specified postprocedural states (15) History of total hip replacement: CODE(S): Z96.649 - Presence of unspecified artificial hip joint QUALIFIERS: Laterality: unspecified laterality Qualified Code(s): Z96.649 - Presence of unspecified artificial hip joint (16) Status post spinal disc removal: CODE(S): Z98.890 - Other specified postprocedural states PLAN: Plan This is a 75-year-old female who presented with traumatic wounds in both lower extremities. Although the patient does not relate significant swelling in her lower extremities, measures to prevent such swelling have been thoroughly discussed and implemented. The patient has been encouraged to elevate her lower extremities as much as possible. She has been advised to refrain from prolonged, idle sitting. She is to continue wearing her Tubigrips bilaterally on a daily basis. Activity has been encouraged. The patient has been encouraged to optimize her nutritional intake. The patient attests to the fact that her appetite is good, and she is consuming a well-balanced diet. The traumatic wounds in the left lower extremity remain completely healed and epithelialized. A traumatic wound persists on the right pretibial surface, which is progressively, though slowly, decreasing in size. A total of 10 EpiFix allografts have been applied in the recent past. We are to implement the use of collagen hydrogel and Hunter AMD foam with PHMB. This is to be applied on a daily basis. The patient has been instructed in the appropriate means of application, and has been provided the necessary supplies. She is to return in 1 week for reevaluation. Total time: 25 minutes
--- NOTE | 2025-02-18 08:53 | WC ---
PHOTO-RIGHT WEEKS 02/17/25
[2025-02-24 14:12] VITALS: BP 149/51; PULSE 65; RESP 18; TEMP 35.8
--- NOTE | 2025-02-24 19:40 | PCM.WC.HP ---
History of Present Illness Date of Service: 02/24/25 Chief Complaint: Right lower extremity traumatic wound History of Wound: This is a 75-year-old female who has presented repeatedly with traumatic wounds to both lower extremities. A wound on the right pretibial surface persists, though all other lower extremity wounds have healed. The patient is mobile and active. She denies swelling in her legs. She sleeps on a flat surface at night. She denies a history of thrombophlebitis. The patient denies a history of congestive heart failure, myocardial infarction, diabetes mellitus, cerebrovascular accident, hypertension, renal disease, and pulmonary disease. She has a history of hypothyroidism. A limited venous duplex examination was performed on October 26, 2022, examining only the right lower extremity, and revealing no evidence of thrombophlebitis. Valvular competence was not fully evaluated. [facility] Medical History Non-pressure chronic ulcer of right calf with fat layer exposed Non-pressure chronic ulcer of right lower leg with fat layer exposed Traumatic open wound of right lower leg Traumatic open wound of left lower leg Non-pressure chronic ulcer of left lower leg with fat layer exposed Non-pressure chronic ulcer of right lower leg with fat layer exposed Traumatic open wound of right lower leg with delayed healing Traumatic open wound of left lower leg with delayed healing Wears glasses Anxiety Alcohol use History of steroid therapy Easy bruising Back pain Injury of back Migraine headache Syncope History of IBS Former smoker Leg cramps History of edema History of stress test Cataracts, bilateral Arthritis Anemia Vitamin D deficiency, unspecified Hypothyroidism Home Medications ?Medication ?Instructions ?Recorded ?Last Taken ?Type lidocaine 5 % topical patch 2 patch topical DAILY 05/03/17 1 Day Ago History ~09/21/17 meloxicam 15 mg tablet 15 mg PO QDAY 05/03/17 09/22/17 History doxepin 10 mg capsule 10 mg PO QHS 12/16/19 Unknown History folic acid 400 mcg tablet 0.4 mg PO DAILY@0800 12/16/19 Unknown History linaclotide 145 mcg capsule 145 mcg PO DAILY 12/16/19 Unknown History estradiol 0.1 mg/24 hr semiweekly 2 patch transdermal MOTH 03/15/20 Unknown History transdermal patch (Bessie) acetaminophen 500 mg tablet 1,000 mg PO BID 01/06/22 Unknown History vitamin [id number] B1 100 mg-1 1 ml IM .QMO 01/06/22 Unknown History mg/mL intramuscular solution levothyroxine 50 mcg tablet 50 mcg PO DAILY 03/18/24 Unknown History gabapentin 100 mg capsule 100 mg PO BID 05/07/24 Unknown History loratadine 10 mg tablet 10 mg PO .prn 05/07/24 Unknown History sulfamethoxazole 800 1 tab PO Q12H #14 tabs 05/27/24 Unknown Rx mg-trimethoprim 160 mg tablet (Bactrim DS) cephalexin 500 mg capsule 500 mg PO 4X/DAY 07/08/24 Unknown History doxycycline hyclate 100 mg tablet 100 mg PO BID 07/08/24 Unknown History sulfamethoxazole 800 1 tab PO Q12H #14 tabs 07/08/24 Unknown Rx mg-trimethoprim 160 mg tablet (Bactrim DS) sulfamethoxazole 800 1 tab PO Q12H wound infection #14 09/10/24 Unknown Rx mg-trimethoprim 160 mg tablet tabs (Bactrim DS) Allergy/AdvReac Type Severity Reaction Status Date / Time No Known Allergies Allergy Verified 05/07/24 11:09 Family History Mother Rheumatoid arthritis Father Pancreatic cancer Cancer Grandfather Myocardial infarction Grandmother Thyroid disorder Surgical History Status post spinal disc removal History of tonsillectomy History of lumbar spinal fusion History of total hip replacement History of hysterectomy History of cervical discectomy Social History household members: spouse Smoking Status: Never smoker alcohol intake: current alcohol intake frequency: a few times a week Alcohol type: wine substance use type: does not use what type of physical activity do you participate in: other details: physical therapy frequency: 1-2 times per week Vital Signs Vital Signs Vital Signs: 02/24/25 14:12 Temperature 96.5 F L Temperature Source Temporal Pulse Rate 65 Respiratory Rate 18 Blood Pressure 149/51 H Blood Pressure Mean 83 Blood Pressure Source Monitor Blood Pressure Position Semi-Fowlers Blood Pressure Location Left Arm Physical Exam Const alert, oriented x3, no apparent distress, average body habitus and no limitations Constitutional Narrative: The patient's BMI is 19.7. She is of thin body habitus. General Appearance: cooperative, comfortable, well kempt and well developed Orientation / Consciousness: awake, oriented to person, oriented to place and oriented to time Exam Limitations: no limitations HEENT normocephalic, head/scalp atraumatic and hearing grossly normal bilaterally Head and Scalp: normal to inspection, normocephalic and atraumatic Face and Sinus: normal facial exam Nose: external nose normal External Ear: external ears normal Eyes EOMs intact bilaterally General Eye: normal appearance of both eyes Alignment: alignment normal Neck full ROM Resp normal respiratory effort, normal air movement, no retractions and no use of accessory muscles Effort and Inspection: able to speak in complete sentences Extremity no clubbing, cyanosis or edema and no calf tenderness Skin Wound Narrative: The patient's lower extremities appear warm and well-perfused. Pedal pulses are easily palpable bilaterally. There is no significant swelling or edema in the patient's lower extremities. The wounds on the patient's left lower extremity remain completely healed and epithelialized. The traumatic wound on the patient's right pretibial surface appears pink and healthy in appearance with a small amount of bioburden. There is evidence of granulation tissue and increasing peripheral epithelialization. There is no sign of infection or cellulitis. Wound dimensions are documented elsewhere. The wound has not changed in size significantly since the patient's last visit. Wound margins are well beveled. Hair: normal Neuro oriented x3, CN's II-XII intact bilaterally, moves all extremities, no focal motor deficits and no sensory deficits noted Sensorium / Orientation: awake, alert, oriented to person, oriented to place and oriented to time Speech: speech normal Psych Appearance: grossly normal and appropriate Attitude: calm Activity / Motor Behavior: appropriate eye contact Speech: normal speech Mood & Affect: euthymic mood Thought Process: normal thought process Thought Content: normal thought content Attention / Concentration: attention grossly intact Memory / Cognition: memory grossly intact Insight: insight good Judgement: judgement good Debridement Note Debridement Note Wound debrided: Traumatic right pretibial wound Laterality: Right Type of Debridement: Excisional debridement Anesthesia Used: 5% Lidocaine Gel and Cetacaine Depth: Down to and including healthy tissue and in the subcutaneous layer Percentage of wound debrided: 100 Instrument Used: 5mm curette Tissue Removed: Bioburden Severity: Fat Layer Exposed Amount of bleeding with debridement: Mild Bleeding Controlled with: Compression and gauze Patient tolerated procedure: Patient tolerated procedure well Post-Debridement Measurements and Additional Note: Post-Debridement Measurements/Treatment WC - Nurse 1 - General Ulcer Assessment Start: 02/10/25 14:35 Freq: Status: Active Protocol: QUIANA Activity Type Activity Date Activity User E-sign Co-sign Detail Recorded Client Recorded Date Recorded By Document 02/10/25 14:35 RB [id number] 02/10/25 14:37 RB Document 02/17/25 14:29 TS [id number] 02/17/25 14:33 TS Document 02/24/25 14:12 JF [id number] 02/24/25 14:16 JF 02/10/25 02/17/25 02/24/25 14:35 14:29 14:12 WC - Today's Visit Information Type of service Follow-up Visit Follow-up Visit Follow-up Visit (Physician/DATA PROGRAMMER (Physician/DATA PROGRAMMER (Physician/DATA PROGRAMMER ) ) ) Arrival Mode Ambulatory Ambulatory Ambulatory Transfer Assistance None Patient Identification Verified (Name & Yes Yes Yes ) Patient Requires Transmission-Based No No No Precautions Safety Precautions Fall Prevention Vital Signs Temperature (97.8 F-99.1 F) 97.8 F 98.5 F 96.5 F L Temperature Source Temporal Temporal Temporal Pulse Rate (60-100) 69 70 65 Pulse Location Monitor Monitor Monitor Respiratory Rate (12-18) 18 16 18 Respiratory rate source Observation Observation Observation Oxygen Delivery Method Room Air Blood Pressure (90/60-120/80) 154/70 H 140/82 H 149/51 H Blood Pressure Mean 98 101 83 Source Monitor Monitor Monitor Position Semi-Fowlers Sitting Semi-Fowlers Blood Pressure Location Left Arm Left Arm Left Arm History Since Last Visit- (Skip if this is Patient's initial visit) Have you changed medications since your No No Yes last visit? Any new allergies or adverse reactions No No No Had a fall/change in ADL's that may No No No increase risk of falls Signs or symptoms of abuse and/or No No No neglect since last visit Have you been in the hospital since your No No No last visit? Has dressing in place as prescribed Yes Yes Yes Has compression in place as prescribed Yes N/A Yes Has offloadiing in place as prescribed N/A N/A N/A Experienced any changes in pain level or No No management Left Footwear Regular Shoe Regular Shoe Regular Shoe Right Footwear Regular Shoe Regular Shoe Regular Shoe Pain Scale: 0-10 Numeric Is Patient Pain Free? Yes Yes Yes WC - Nurse 1 - General Ulcer Measurement Start: 02/10/25 14:35 Freq: Status: Active Protocol: Activity Type Activity Date Activity User E-sign Co-sign Detail Recorded Client Recorded Date Recorded By Document 02/10/25 14:35 RB [id number] 02/10/25 14:37 RB Document 02/17/25 14:29 TS [id number] 02/17/25 14:33 TS Document 02/24/25 14:12 JF [id number] 02/24/25 14:16 JF 02/10/25 02/17/25 02/24/25 14:35 14:29 14:12 Wound Center Nurse 1 #4 Rt med le -Combined with other wound No No No -Current Size (cm) - Length 1.8 1.6 1.8 -Current Size (cm) - Width 1.4 1 1.5 -Current Size (cm) - Depth 0.1 0.1 0.1 -Total Square Cm 2.52 1.6 2.70 -Date of Last Picture (Recall this 02/17/25 field) -Photo Taken Yes Yes Yes -Epithelialization Small 1-33% -Tunneling No No No -Undermining/Tunneling No No No -Circular Undermining No No No -Exudate Amt Medium Small Medium -Exudate Type Serosanguineous Serous Serosanguineous -Wound Margin Distinct, Distinct, Flat & Intact Outline Outline Attached Attached -Granulation Amt Medium (34-66%) Medium (34-66%) Large (67-100%) -Granulation Quality [place]z,Red Red -Slough/Fibrin Yes Yes -Necrosis Amt Medium (34-66%) Small (1-33%) -Necrotic Tissue Type Adherent Slough Adherent Slough -Structure Exposed N/A N/A -Texture (Joyce-wound Skin Appearance) Assessed Assessed Assessed, Scarring -Moisture (Joyce-wound Skin Appearance) Assessed Assessed Assessed,Dry/ Scaly -Color (Joyce-wound Skin Appearance) Assessed Assessed Assessed -Temperature (Joyce-wound Skin No Abnormality No Abnormality No Abnormality Appearance) (Pt Warm) (Pt Warm) (Pt Warm) -Tenderness on Palpation (Joyce-wound No No Skin Appearance) -Ulcer Cleansing Wound Cleanser Soap and Water Rinsed/ Irrigated with Saline -Foul Odor after Cleansing No No No -Anesthetic Used 5% Lidocaine 5% Lidocaine 5% Lidocaine Gel Gel Gel Lower Limb Edema Present Yes No No Right Calf (cm) 28 Point of measurement (cm from the medial 16.5 instep) Right Ankle (cm) 16.6 Point of Measurement (cm from the medial 28 instep) WC - Nurse 2 - General Ulcer CM Notes Start: 02/10/25 14:35 Freq: Status: Active Protocol: Activity Type Activity Date Activity User E-sign Co-sign Detail Recorded Client Recorded Date Recorded By Document 02/10/25 14:56 DS [id number] 02/10/25 15:02 DS Document 02/17/25 14:45 DS [id number] 02/17/25 14:49 DS Document 02/24/25 14:31 DS [id number] 02/24/25 14:35 DS 02/10/25 02/17/25 02/24/25 14:56 14:45 14:31 Wound Center Nurse 2 #4 Rt med le -Time 14:56 14:45 14:31 -Correct Patient Yes Yes Yes -Correct Side, Site, Position Yes Yes Yes -Correct Procedure Yes Yes Yes -Procedure Performed Yes Yes Yes -Type of Procedure Debridement Debridement Debridement -Clinical Debridement Subcutaneous Subcutaneous Subcutaneous -Tissue Removed Subcutaneous Subcutaneous Subcutaneous -Post Debridement (cm) - Length 1.9 1.5 1.5 -Post Debridement (cm) - Width 1.2 0.8 1.2 -Post Debridement (cm) - Depth 0.1 0.1 0.1 -Total Square (Post) (cm) 2.28 1.20 1.80 -Area of Debridement (cm) - Length 1.9 1.5 1.5 -Area of Debridement (cm) - Width 1.2 0.8 1.2 -Total Square (Area) (cm) 2.28 1.20 1.80 -Tunneling No No No -Undermining/Tunneling No No No -Circular Undermining No No -Wound/Ulcer Outcome Not Healed Not Healed Not Healed -Ulcer Cleansing gauze gauze gauze -Foul Odor after Cleansing No No No -Bioengineered Tissue No No No -Bleeding Controlled with Pressure Pressure Pressure -Treatment Response Procedure Procedure Procedure Tolerated Well Tolerated Well Tolerated Well -Offloading No -Debridement - Subq, 1st 20sq cm Yes Yes Yes Pain Scale: 0-10 Numeric Is Patient Pain Free? Yes Yes Yes WC - Nurse 3 - General Ulcer D/C NN Start: 02/10/25 14:35 Freq: Status: Active Protocol: Activity Type Activity Date Activity User E-sign Co-sign Detail Recorded Client Recorded Date Recorded By Document 02/10/25 15:15 JF [id number] 02/10/25 15:15 JF Document 02/17/25 14:49 RB [id number] 02/17/25 14:50 RB Edit Result 02/17/25 14:49 RB (1) [id number] 02/17/25 15:10 RB Document 02/24/25 14:49 JF [id number] 02/24/25 14:49 JF (1) #4 Rt med le - Primary Dressing Applied C Hydrogel, => AMD Dressing 4x4,C NonAdherent => Hydrogel,Silicone Contact Layer => Border Foam 4x4 - AMD Dressing 4x4 => 1 - Silicone Border Foam 4x4 => 1 RLE - Size D ($) 2 => 1 02/10/25 02/17/25 02/24/25 15:15 14:49 14:49 Wound Care Center Nurse 3 #4 Rt med le -Ulcer Cleansing Rinsed/ Rinsed/ Rinsed/ Irrigated with Irrigated with Irrigated with Saline Saline Saline -Foul Odor after Cleansing No No -Primary Dressing Applied Aquacel Extra, AMD Dressing Aquacel Extra, Silicone Border 4x4,C Hydrogel, Silicone Border Foam 4x4 Silicone Border Foam 4x4 Foam 4x4 -Primary Dressing Covered/Secured with Dry Gauze, Secured with Tape -AMD Dressing 4x4 1 -Aquacel Extra 1 1 -Hydrogel 1 -Silicone Border Foam 4x4 1 1 1 RLE -Tubular Bandage Double Layer Single Layer -Size of Tubigrip Used Size D Size D -Size D ($) 1 1 Treatment Response Procedure Tolerated Well Pain Scale: 0-10 Numeric Is Patient Pain Free? Yes Yes Yes - Visit Discharge Discharge Condition Stable Stable Stable Ambulatory Status Ambulatory Ambulatory Ambulatory Transportation Private Auto Private Auto Private Auto Medication Reconcilliation completed & Yes No Yes provided to patient/care provider Clinical Summary of Care Provided Yes Yes Yes Charges/Coding Procedures Integumentary [id number]: [id number] [place] subq tissue 20 sq cm/< Assessment/Plan Assessment/Plan (1) Non-pressure chronic ulcer of right calf with fat layer exposed: CODE(S): L97.212 - Non-pressure chronic ulcer of right calf with fat layer exposed (2) Non-pressure chronic ulcer of right lower leg with fat layer exposed: CODE(S): L97.912 - Non-pressure chronic ulcer of unspecified part of right lower leg with fat layer exposed (3) Traumatic open wound of right lower leg: CODE(S): S81.801A - Unspecified open wound, right lower leg, initial encounter QUALIFIERS: Encounter type: subsequent encounter Qualified Code(s): S81.801D - Unspecified open wound, right lower leg, subsequent encounter (4) Lumbar scoliosis: CODE(S): M41.9 - Scoliosis, unspecified QUALIFIERS: Scoliosis type: other secondary scoliosis Qualified Code(s): M41.56 - Other secondary scoliosis, lumbar region (5) Low back pain: CODE(S): M54.50 - Low back pain, unspecified QUALIFIERS: Chronicity: chronic Back pain laterality: unspecified Sciatica presence: unspecified whether sciatica present Qualified Code(s): M54.50 - Low back pain, unspecified; G89.29 - Other chronic pain (6) DDD (degenerative disc disease), lumbosacral: CODE(S): M51.37 - Other intervertebral disc degeneration, lumbosacral region QUALIFIERS: Disc-related pain type: unspecified whether pain present Qualified Code(s): M51.379 - Other intervertebral disc degeneration, lumbosacral region without mention of lumbar back pain or lower extremity pain (7) Hypothyroidism (acquired): CODE(S): E03.9 - Hypothyroidism, unspecified (8) Cataracts, bilateral: CODE(S): H26.9 - Unspecified cataract QUALIFIERS: Cataract type: unspecified Qualified Code(s): H26.9 - Unspecified cataract (9) History of tonsillectomy: CODE(S): Z90.89 - Acquired absence of other organs (10) History of IBS: CODE(S): Z87.19 - Personal history of other diseases of the digestive system (11) Former smoker: CODE(S): Z87.891 - Personal history of nicotine dependence (12) History of lumbar spinal fusion: CODE(S): Z98.1 - Arthrodesis status (13) History of hysterectomy: CODE(S): Z90.710 - Acquired absence of both cervix and uterus (14) History of cervical discectomy: CODE(S): Z98.890 - Other specified postprocedural states (15) History of total hip replacement: CODE(S): Z96.649 - Presence of unspecified artificial hip joint QUALIFIERS: Laterality: unspecified laterality Qualified Code(s): Z96.649 - Presence of unspecified artificial hip joint (16) Status post spinal disc removal: CODE(S): Z98.890 - Other specified postprocedural states PLAN: Plan This is a 75-year-old female who presented with traumatic wounds in both lower extremities. Although the patient does not relate significant swelling in her lower extremities, measures to prevent such swelling have been thoroughly discussed and implemented. The patient has been encouraged to elevate her lower extremities as much as possible. She has been advised to refrain from prolonged, idle sitting. She is to continue wearing her Tubigrips bilaterally on a daily basis. Activity has been encouraged. The patient has been encouraged to optimize her nutritional intake. The patient attests to the fact that her appetite is good, and she is consuming a well-balanced diet. The traumatic wounds in the left lower extremity remain completely healed and epithelialized. A traumatic wound persists on the right pretibial surface, which is progressively, though slowly, decreasing in size. A total of 10 EpiFix allografts have been applied in the recent past. We are to implement the use of moistened Aquacel Extra topically to the wound, which will be applied by the patient on a daily basis. The patient has been instructed in the appropriate means of application, and has been provided the necessary supplies. She is to return in 1 week for reevaluation. Total time: 24 minutes
--- NOTE | 2025-02-25 09:35 | WC ---
PHOTO-LEFT WEEKS 02/24/25
--- NOTE | 2025-02-25 09:40 | WC ---
PHOTO-RIGHT WEEKS 02/24/25
[2025-03-03 14:30] VITALS: BP 161/76; PULSE 78; RESP 16; TEMP 36.5
--- NOTE | 2025-03-03 19:22 | HP.PCM_ITS ---
History of Present Illness Date of Service: 03/03/25 Chief Complaint: Right lower extremity traumatic wound History of Wound: This is a 75-year-old female who has presented repeatedly with traumatic wounds to both lower extremities. A wound on the right pretibial surface persists, though all other lower extremity wounds have healed. The patient is mobile and active. She denies swelling in her legs. She sleeps on a flat surface at night. She denies a history of thrombophlebitis. The patient denies a history of congestive heart failure, myocardial infarction, diabetes mellitus, cerebrovascular accident, hypertension, renal disease, and pulmonary disease. She has a history of hypothyroidism. A limited venous duplex examination was performed on October 26, 2022, examining only the right lower extremity, and revealing no evidence of thrombophlebitis. Valvular competence was not fully evaluated. [facility] Medical History Non-pressure chronic ulcer of right calf with fat layer exposed Non-pressure chronic ulcer of right lower leg with fat layer exposed Traumatic open wound of right lower leg Traumatic open wound of left lower leg Non-pressure chronic ulcer of left lower leg with fat layer exposed Non-pressure chronic ulcer of right lower leg with fat layer exposed Traumatic open wound of right lower leg with delayed healing Traumatic open wound of left lower leg with delayed healing Wears glasses Anxiety Alcohol use History of steroid therapy Easy bruising Back pain Injury of back Migraine headache Syncope History of IBS Former smoker Leg cramps History of edema History of stress test Cataracts, bilateral Arthritis Anemia Vitamin D deficiency, unspecified Hypothyroidism Home Medications ?Medication ?Instructions ?Recorded ?Last Taken ?Type lidocaine 5 % topical patch 2 patch topical DAILY 04/10 08/24 1 Day Ago History ~09/21/17 meloxicam 15 mg tablet 15 mg PO QDAY 05/03/1709/22 History doxepin 10 mg capsule 10 mg PO QHS 12/16/19 Unknow n History folic acid 400 mcg tablet 0.4 mg PO DAILY@0800 0 Unknown History linaclotide 145 mcg capsule 145 mcg PO DAILY 12/16/19 Unknown History estradiol 0.1 mg/24 hr semiweekly 2 patch transdermal MOTH 03/15/20 Unknown History transdermal patch (Bessie) acetaminophen 500 mg tablet 1,000 mg PO BID 09/30/22 U nknown History vitamin [id number] B1 100 mg-1 1 ml IM .QMO 01/06/22 Unknown History mg/mL intramuscular solution levothyroxine 50 mcg tablet 50 mcg PO DAILY 03/18/24 U nknown History gabapentin 100 mg capsule 100 mg PO BID 05/07/24 Unkno wn History loratadine 10 mg tablet 10 mg PO .prn 05/07/24 Unkno wn History sulfamethoxazole 800 1 tab PO Q12H #14 tabs 05/27 Unknown Rx mg-trimethoprim 160 mg tablet (Bactrim DS) cephalexin 500 mg capsule 500 mg PO 4X/DAY 07/08/24 Un known History doxycycline hyclate 100 mg tablet 100 mg PO BID Unknown History sulfamethoxazole 800 1 tab PO Q12H #14 tabs 07/08 Unknown Rx mg-trimethoprim 160 mg tablet (Bactrim DS) sulfamethoxazole 800 1 tab PO Q12H wound infectio n #14 09/10/24 Unknown Rx mg-trimethoprim 160 mg tablet tabs (Bactrim DS) Allergy/AdvReac Type Severity Reaction Status Date / Time No Known Allergies Allergy Verified 05/07/24 11:09 Family History Mother Rheumatoid arthritis Father Pancreatic cancer Cancer Grandfather Myocardial infarction Grandmother Thyroid disorder Surgical History Status post spinal disc removal History of tonsillectomy History of lumbar spinal fusion History of total hip replacement History of hysterectomy History of cervical discectomy Social History household members: spouse Smoking Status: Never smoker alcohol intake: current alcohol intake frequency: a few times a week Alcohol type: wine substance use type: does not use what type of physical activity do you participate in: other details: physical therapy frequency: 1-2 times per week Vital Signs Vital Signs Vital Signs: 03/03/25 14:30 Temperature 97.7 F L Temperature Source Temporal Pulse Rate 78 Respiratory Rate 16 Blood Pressure 161/76 H Blood Pressure Mean 104 Blood Pressure Source Manual Blood Pressure Location Left Arm Oxygen Delivery Method Room Air Physical Exam Const alert, oriented x3, no apparent distress, average body habitus and no limitations Constitutional Narrative: The patient's BMI is 19.7. She is of thin body habitus. General Appearance: cooperative, comfortable, well kempt and well developed Orientation / Consciousness: awake, oriented to person, oriented to place and oriented to time Exam Limitations: no limitations HEENT normocephalic, head/scalp atraumatic and hearing grossly normal bilaterally Head and Scalp: normal to inspection, normocephalic and atraumatic Face and Sinus: normal facial exam Nose: external nose normal External Ear: external ears normal Eyes EOMs intact bilaterally General Eye: normal appearance of both eyes Alignment: alignment normal Neck full ROM Resp normal respiratory effort, normal air movement, no retractions and no use of accessory muscles Effort and Inspection: able to speak in complete sentences Extremity no clubbing, cyanosis or edema and no calf tenderness Skin Wound Narrative: The patient's lower extremities appear warm and well-perfused. Pedal pulses are easily palpable bilaterally. There is no significant swelling or edema in the patient's lower extremities. The wounds on the patient's left lower extremity remain completely healed and epithelialized. The traumatic wound on the patient's right pretibial surface appears pink and healthy in appearance with a small amount of bioburden. There is evidence of granulation tissue and increasing peripheral epithelialization. There is no sign of infection or cellulitis. Wound dimensions are documented elsewhere. The wound has decreased in size significantly since the patient's last visit. Wound margins are well beveled. Hair: normal Neuro oriented x3, CN's II-XII intact bilaterally, moves all extremities, no focal motor deficits and no sensory deficits noted Sensorium / Orientation: awake, alert, oriented to person, oriented to place and oriented to time Speech: speech normal Psych Appearance: grossly normal and appropriate Attitude: calm Activity / Motor Behavior: appropriate eye contact Speech: normal speech Mood & Affect: euthymic mood Thought Process: normal thought process Thought Content: normal thought content Attention / Concentration: attention grossly intact Memory / Cognition: memory grossly intact Insight: insight good Judgement: judgement good Debridement Note Debridement Note Wound debrided: Traumatic right pretibial wound Laterality: Right Type of Debridement: Excisional debridement Anesthesia Used: 5% Lidocaine Gel and Cetacaine Depth: Down to and including healthy tissue and in the subcutaneous layer Percentage of wound debrided: 100 Instrument Used: 5mm curette Tissue Removed: Bioburden Severity: Fat Layer Exposed Amount of bleeding with debridement: Mild Bleeding Controlled with: Compression and gauze Patient tolerated procedure: Patient tolerated procedure well Post-Debridement Measurements and Additional Note: Post-Debridement Measurements/Treatment WC - Nurse 1 - General Ulcer Assessment Start: 02/10/25 14:35 Freq: Status: Active Protocol: QUIANA Activity Type Activity Date Activity User E-sign Co-sign Detail Recorded Client Recorded Date Recorded By Document 02/10/25 14:35 RB [id number] 02/10/25 14:37 RB Document 02/17/25 14:29 TS [id number] 02/17/25 14:33 TS Document 02/24/25 14:12 JF [id number] 02/24/25 14:16 JF Document 03/03/25 14:30 TS [id number] 03/03/25 14:36 TS 02/10/25 02/17/25 02/24/25 14:35 14:29 14:12 WC - Today's Visit Information Type of service Follow-up Visit Follow-up Visit Follow-up Visit (Physician/DATA WAREHOUSE DEVELOPER (Physician/DATA WAREHOUSE DEVELOPER (Physician/DATA WAREHOUSE DEVELOPER ) ) ) Arrival Mode Ambulatory Ambulatory Ambulatory Transfer Assistance None Patient Identification Verified (Name & Yes Yes Yes ) Patient Requires Transmission-Based No No No Precautions Safety Precautions Fall Prevention Vital Signs Temperature (97.8 F-99.1 F) 97.8 F 98.5 F 96.5 F L Temperature Source Temporal Temporal Temporal Pulse Rate (60-100) 69 70 65 Pulse Location Monitor Monitor Monitor Respiratory Rate (12-18) 18 16 18 Respiratory rate source Observation Observation Observation Oxygen Delivery Method Room Air Blood Pressure (90/60-120/80) 154/70 H 140/82 H 149/51 H Blood Pressure Mean 98 101 83 Source Monitor Monitor Monitor Position Semi-Fowlers Sitting Semi-Fowlers Blood Pressure Location Left Arm Left Arm Left Arm History Since Last Visit- (Skip if this is Patient's initial visit) Have you changed medications since your No No Yes last visit? Any new allergies or adverse reactions No No No Had a fall/change in ADL's that may No No No increase risk of falls Signs or symptoms of abuse and/or No No No neglect since last visit Have you been in the hospital since your No No No last visit? Has dressing in place as prescribed Yes Yes Yes Has compression in place as prescribed Yes N/A Yes Has offloadiing in place as prescribed N/A N/A N/A Experienced any changes in pain level or No No management Left Footwear Regular Shoe Regular Shoe Regular Shoe Right Footwear Regular Shoe Regular Shoe Regular Shoe Pain Scale: 0-10 Numeric Is Patient Pain Free? Yes Yes Yes 03/03/25 14:30 WC - Today's Visit Information Type of service Follow-up Visit (Physician/DATA WAREHOUSE DEVELOPER ) Arrival Mode Ambulatory Transfer Assistance Patient Identification Verified (Name & Yes ) Patient Requires Transmission-Based No Precautions Safety Precautions Fall Prevention Vital Signs Temperature (97.8 F-99.1 F) 97.7 F L Temperature Source Temporal Pulse Rate (60-100) 78 Pulse Location Monitor Respiratory Rate (12-18) 16 Respiratory rate source Observation Oxygen Delivery Method Room Air Blood Pressure (90/60-120/80) 161/76 H Blood Pressure Mean 104 Source Manual Position Blood Pressure Location Left Arm History Since Last Visit- (Skip if this is Patient's initial visit) Have you changed medications since your No last visit? Any new allergies or adverse reactions No Had a fall/change in ADL's that may No increase risk of falls Signs or symptoms of abuse and/or No neglect since last visit Have you been in the hospital since your No last visit? Has dressing in place as prescribed Yes Has compression in place as prescribed Yes Has offloadiing in place as prescribed N/A Experienced any changes in pain level or No management Left Footwear Regular Shoe Right Footwear Regular Shoe Pain Scale: 0-10 Numeric Is Patient Pain Free? Yes WC - Nurse 1 - General Ulcer Measurement Start: 02/10/25 14:35 Freq: Status: Active Protocol: Activity Type Activity Date Activity User E-sign Co-sign Detail Recorded Client Recorded Date Recorded By Document 02/10/25 14:35 RB [id number] 02/10/25 14:37 RB Document 02/17/25 14:29 TS [id number] 02/17/25 14:33 TS Document 02/24/25 14:12 JF [id number] 02/24/25 14:16 JF Document 03/03/25 14:30 TS [id number] 03/03/25 14:36 TS 02/10/25 02/17/25 02/24/25 14:35 14:29 14:12 Wound Center Nurse 1 #4 Rt med le -Combined with other wound No No No -Current Size (cm) - Length 1.8 1.6 1.8 -Current Size (cm) - Width 1.4 1 1.5 -Current Size (cm) - Depth 0.1 0.1 0.1 -Total Square Cm 2.52 1.6 2.70 -Date of Last Picture (Recall this 02/17/25 field) -Photo Taken Yes Yes Yes -Epithelialization Small 1-33% -Tunneling No No No -Undermining/Tunneling No No No -Circular Undermining No No No -Exudate Amt Medium Small Medium -Exudate Type Serosanguineous Serous Serosanguineous -Wound Margin Distinct, Distinct, Flat & Intact Outline Outline Attached Attached -Granulation Amt Medium (34-66%) Medium (34-66%) Large (67-100%) -Granulation Quality Haswell Haswell,Red Red -Slough/Fibrin Yes Yes -Necrosis Amt Medium (34-66%) Small (1-33%) -Necrotic Tissue Type Adherent Slough Adherent Slough -Structure Exposed N/A N/A -Texture (Joyce-wound Skin Appearance) Assessed Assessed Assessed, Scarring -Moisture (Joyce-wound Skin Appearance) Assessed Assessed Assessed,Dry/ Scaly -Color (Joyce-wound Skin Appearance) Assessed Assessed Assessed -Temperature (Joyce-wound Skin No Abnormality No Abnormality No Abnormality Appearance) (Pt Warm) (Pt Warm) (Pt Warm) -Tenderness on Palpation (Joyce-wound No No Skin Appearance) -Ulcer Cleansing Wound Cleanser Soap and Water Rinsed/ Irrigated with Saline -Foul Odor after Cleansing No No No -Anesthetic Used 5% Lidocaine 5% Lidocaine 5% Lidocaine Gel Gel Gel Lower Limb Edema Present Yes No No Right Calf (cm) 28 Point of measurement (cm from the medial 16.5 instep) Right Ankle (cm) 16.6 Point of Measurement (cm from the medial 28 instep) 03/03/25 14:30 Wound Center Nurse 1 #4 Rt med le -Combined with other wound No -Current Size (cm) - Length 1.6 -Current Size (cm) - Width 1.1 -Current Size (cm) - Depth 0.1 -Total Square Cm 1.76 -Date of Last Picture (Recall this 03/03/25 field) -Photo Taken Yes -Epithelialization -Tunneling -Undermining/Tunneling No -Circular Undermining No -Exudate Amt Small -Exudate Type Serosanguineous -Wound Margin Distinct, Outline Attached -Granulation Amt Medium (34-66%) -Granulation Quality Haswell,Red -Slough/Fibrin No -Necrosis Amt -Necrotic Tissue Type -Structure Exposed None/Limited to Skin Breakdown -Texture (Joyce-wound Skin Appearance) Assessed -Moisture (Joyce-wound Skin Appearance) Assessed -Color (Joyce-wound Skin Appearance) Assessed -Temperature (Joyce-wound Skin No Abnormality Appearance) (Pt Warm) -Tenderness on Palpation (Joyce-wound Skin Appearance) -Ulcer Cleansing Rinsed/ Irrigated with Saline -Foul Odor after Cleansing No -Anesthetic Used 5% Lidocaine Gel Lower Limb Edema Present Right Calf (cm) Point of measurement (cm from the medial instep) Right Ankle (cm) Point of Measurement (cm from the medial instep) WC - Nurse 2 - General Ulcer CM Notes Start: 02/10/25 14:35 Freq: Status: Active Protocol: Activity Type Activity Date Activity User E-sign Co-sign Detail Recorded Client Recorded Date Recorded By Document 02/10/25 14:56 DS [id number] 02/10/25 15:02 DS Document 02/17/25 14:45 DS [id number] 02/17/25 14:49 DS Document 02/24/25 14:31 DS [id number] 02/24/25 14:35 DS Document 03/03/25 14:50 [id number] 03/03/25 14:53 02/10/25 02/17/25 02/24/25 14:56 14:45 14:31 Wound Center Nurse 2 #4 Rt med le -Time 14:56 14:45 14:31 -Correct Patient Yes Yes Yes -Correct Side, Site, Position Yes Yes Yes -Correct Procedure Yes Yes Yes -Procedure Performed Yes Yes Yes -Type of Procedure Debridement Debridement Debridement -Clinical Debridement Subcutaneous Subcutaneous Subcutaneous -Tissue Removed Subcutaneous Subcutaneous Subcutaneous -Post Debridement (cm) - Length 1.9 1.5 1.5 -Post Debridement (cm) - Width 1.2 0.8 1.2 -Post Debridement (cm) - Depth 0.1 0.1 0.1 -Total Square (Post) (cm) 2.28 1.20 1.80 -Area of Debridement (cm) - Length 1.9 1.5 1.5 -Area of Debridement (cm) - Width 1.2 0.8 1.2 -Total Square (Area) (cm) 2.28 1.20 1.80 -Tunneling No No No -Undermining/Tunneling No No No -Circular Undermining No No -Wound/Ulcer Outcome Not Healed Not Healed Not Healed -Ulcer Cleansing gauze gauze gauze -Foul Odor after Cleansing No No No -Bioengineered Tissue No No No -Bleeding Controlled with Pressure Pressure Pressure -Treatment Response Procedure Procedure Procedure Tolerated Well Tolerated Well Tolerated Well -Offloading No -Debridement - Subq, 1st 20sq cm Yes Yes Yes Pain Scale: 0-10 Numeric Is Patient Pain Free? Yes Yes Yes 03/03/25 14:50 Wound Center Nurse 2 #4 Rt med le -Time 14:50 -Correct Patient Yes -Correct Side, Site, Position Yes -Correct Procedure Yes -Procedure Performed Yes -Type of Procedure Debridement -Clinical Debridement Subcutaneous -Tissue Removed Subcutaneous -Post Debridement (cm) - Length 1.5 -Post Debridement (cm) - Width 1.2 -Post Debridement (cm) - Depth 0.1 -Total Square (Post) (cm) 1.80 -Area of Debridement (cm) - Length 1.5 -Area of Debridement (cm) - Width 1.2 -Total Square (Area) (cm) 1.80 -Tunneling No -Undermining/Tunneling No -Circular Undermining No -Wound/Ulcer Outcome Not Healed -Ulcer Cleansing gauze -Foul Odor after Cleansing No -Bioengineered Tissue No -Bleeding Controlled with Pressure -Treatment Response Procedure Tolerated Well -Offloading No -Debridement - Subq, 1st 20sq cm Yes Pain Scale: 0-10 Numeric Is Patient Pain Free? Yes - Nurse 3 - General Ulcer D/C NN Start: 02/10/25 14:35 Freq: Status: Active Protocol: Activity Type Activity Date Activity User E-sign Co-sign Detail Recorded Client Recorded Date Recorded By Document 02/10/25 15:15 JF [id number] 02/10/25 15:15 JF Document 02/17/25 14:49 RB [id number] 02/17/25 14:50 RB Edit Result 02/17/25 14:49 RB (1) [id number] 02/17/25 15:10 RB Document 02/24/25 14:49 JF [id number] 02/24/25 14:49 JF Document 03/03/25 15:04 RB [id number] 03/03/25 15:06 RB (1) #4 Rt med le - Primary Dressing Applied C Hydrogel, => AMD Dressing 4x4,C NonAdherent => Hydrogel,Silicone Contact Layer => Border Foam 4x4 - AMD Dressing 4x4 => 1 - Silicone Border Foam 4x4 => 1 RLE - Size D ($) 2 => 1 02/10/25 02/17/25 02/24/25 15:15 14:49 14:49 Wound Care Center Nurse 3 #4 Rt med le -Ulcer Cleansing Rinsed/ Rinsed/ Rinsed/ Irrigated with Irrigated with Irrigated with Saline Saline Saline -Foul Odor after Cleansing No No -Primary Dressing Applied Aquacel Extra, AMD Dressing Aquacel Extra, Silicone Border 4x4,C Hydrogel, Silicone Border Foam 4x4 Silicone Border Foam 4x4 Foam 4x4 -Primary Dressing Covered/Secured with Dry Gauze, Secured with Tape -AMD Dressing 4x4 1 -Aquacel Extra 1 1 -Hydrogel 1 -Silicone Border Foam 4x4 1 1 1 RLE -Tubular Bandage Double Layer Single Layer -Size of Tubigrip Used Size D Size D -Size D ($) 1 1 -Stockings Treatment Response Procedure Tolerated Well Pain Scale: 0-10 Numeric Is Patient Pain Free? Yes Yes Yes WC - Visit Discharge Discharge Condition Stable Stable Stable Ambulatory Status Ambulatory Ambulatory Ambulatory Transportation Private Auto Private Auto Private Auto Medication Reconcilliation completed & Yes No Yes provided to patient/care provider Clinical Summary of Care Provided Yes Yes Yes 03/03/25 15:04 Wound Care Center Nurse 3 #4 Rt med le -Ulcer Cleansing Rinsed/ Irrigated with Saline -Foul Odor after Cleansing -Primary Dressing Applied Aquacel Extra, Silicone Border Foam 4x4 -Primary Dressing Covered/Secured with -AMD Dressing 4x4 -Aquacel Extra 1 -Hydrogel -Silicone Border Foam 4x4 1 RLE -Tubular Bandage -Size of Tubigrip Used -Size D ($) -Stockings Yes: pt own tubigrip single Treatment Response Procedure Tolerated Well Pain Scale: 0-10 Numeric Is Patient Pain Free? Yes WC - Visit Discharge Discharge Condition Stable Ambulatory Status Ambulatory Transportation Private Auto Medication Reconcilliation completed & No provided to patient/care provider Clinical Summary of Care Provided Yes Charges/Coding Procedures Integumentary [id number]: [id number] [place] subq tissue 20 sq cm/< Assessment/Plan Assessment/Plan (1) Non-pressure chronic ulcer of right calf with fat layer exposed: CODE(S): L97.212 - Non-pressure chronic ulcer of right calf with fat layer exposed (2) Non-pressure chronic ulcer of right lower leg with fat layer exposed: CODE(S): L97.912 - Non-pressure chronic ulcer of unspecified part of right lower leg with fat layer exposed (3) Traumatic open wound of right lower leg: CODE(S): S81.801A - Unspecified open wound, right lower leg, initial encounter QUALIFIERS: Encounter type: subsequent encounter Qualified Code(s): S81.801D - Unspecified open wound, right lower leg, subsequent encounter (4) Lumbar scoliosis: CODE(S): M41.9 - Scoliosis, unspecified QUALIFIERS: Scoliosis type: other secondary scoliosis Qualified Code(s): M41.56 - Other secondary scoliosis, lumbar region (5) Low back pain: CODE(S): M54.50 - Low back pain, unspecified QUALIFIERS: Chronicity: chronic Back pain laterality: unspecified Sciatica presence: unspecified whether sciatica present Qualified Code(s): M54.50 - Low back pain, unspecified; G89.29 - Other chronic pain (6) DDD (degenerative disc disease), lumbosacral: CODE(S): M51.37 - Other intervertebral disc degeneration, lumbosacral region QUALIFIERS: Disc-related pain type: unspecified whether pain present Qualified Code(s): M51.379 - Other intervertebral disc degeneration, lumbosacral region without mention of lumbar back pain or lower extremity pain (7) Hypothyroidism (acquired): CODE(S): E03.9 - Hypothyroidism, unspecified (8) Cataracts, bilateral: CODE(S): H26.9 - Unspecified cataract QUALIFIERS: Cataract type: unspecified Qualified Code(s): H26.9 - Unspecified cataract (9) History of tonsillectomy: CODE(S): Z90.89 - Acquired absence of other organs (10) History of IBS: CODE(S): Z87.19 - Personal history of other diseases of the digestive system (11) Former smoker: CODE(S): Z87.891 - Personal history of nicotine dependence (12) History of lumbar spinal fusion: CODE(S): Z98.1 - Arthrodesis status (13) History of hysterectomy: CODE(S): Z90.710 - Acquired absence of both cervix and uterus (14) History of cervical discectomy: CODE(S): Z98.890 - Other specified postprocedural states (15) History of total hip replacement: CODE(S): Z96.649 - Presence of unspecified artificial hip joint QUALIFIERS: Laterality: unspecified laterality Qualified Code(s): Z96.649 - Presence of unspecified artificial hip joint (16) Status post spinal disc removal: CODE(S): Z98.890 - Other specified postprocedural states PLAN: Plan This is a 75-year-old female who presented with traumatic wounds in both lower e xtremities. Although the patient does not relate significant swelling in her lower extremities, measures to prevent such swelling have been thoroughly discussed and implemented. The patient has been encouraged to elevate her lower extremities as much as possible. She has been advised to refrain from prolonged, idle sitting. She is to continue wearing her Tubigrips bilaterally on a daily basis. Activity has been encouraged. The patient has been encouraged to optimize her nutritional intake. The patient attests to the fact that her appetite is good, and she is consuming a well-balanced diet. The traumatic wounds in the left lower extremity remain completely healed and epithelialized. A traumatic wound persists on the right pretibial surface, which is progressively, though slowly, decreasing in size. A total of 10 EpiFix allografts have been applied in the recent past. We are to continue the use of moistened Aquacel Extra topically to the wound, which will be applied by the [facility] ient on a daily basis. The patient has been instructed in the appropriate means of application, and has been provided the necessary supplies. She is to return in 1 week for reevaluation. Total time: 22 minutes
--- NOTE | 2025-03-04 11:44 | WC ---
PHOTO-RIGHT WEEKS 03/03/25
== END 2025-03-08 23:59 | disposition home or self-care (01) ==
LOC: WC 14:30
PROVIDERS: PCP Family Medicine Geriatric Medicine; Referring Provider Family Medicine Geriatric Medicine; Visit Provider Surgery
DX: L97.212 Non-pressure chronic ulcer of right calf with fat layer exposed (principal); M51.370 Other intervertebral disc degeneration, lumbosacral region with discogenic back pain only; H26.9 Unspecified cataract; E03.9 Hypothyroidism, unspecified; Z90.710 Acquired absence of both cervix and uterus; Z87.891 Personal history of nicotine dependence; Z98.1 Arthrodesis status; G89.29 Other chronic pain; M41.56 Other secondary scoliosis, lumbar region; Z96.649 Presence of unspecified artificial hip joint; Z87.19 Personal history of other diseases of the digestive system; Z90.89 Acquired absence of other organs; S81.801D Unspecified open wound, right lower leg, subsequent encounter
CPT/HCPCS: 11042

== ENCOUNTER → 2025-03-03 | Outpatient (CLI) | payer MEDICARE, OTHER, SELFPAY ==
[2025-03-03 11:07] LABS: Hematocrit 40.7 % (37-47); Hemoglobin 13.5 g/dL (12.0-15.0); Immature Granulocytes Count 0.010 X10^3/uL (0.0-0.0); Mean Corp Hgb Conc 33.2 g/dL (32-36); Mean Corpuscular Volume 96.4 fL (81-99); Mean Platelet Vol. 9.4 fl (6.2-12.0); NRBC Flagged by Analyzer 0 % (0-5); Platelet Count 324 K/mm3 (150-450); RBC Distribution Width CV 11.4 % (11.6-14.6); RBC Distribution Width SD 40.2 fl (35.1-43.9); Red Blood Count 4.22 M/mm3 (4.2-5.4); White Blood Count 3.9 K/mm3 (4.4-11.0)
[2025-03-03 12:22] LABS: Vitamin D,25 Hydroxy 57.2 ng/mL (30-100)
[2025-03-03 12:33] LABS: AST(SGOT) 25 U/L (<=31); Alanine Aminotransfer ALT/SGPT 10 U/L (<=34); Albumin, Serum 4.7 g/dL (3.4-4.8); Alkaline Phosphatase 53 U/L (35-104); Anion Gap 13 (5-15); BUN 11 mg/dL (4-19); BUN/Creat Ratio 15.9 RATIO (10-20); Calcium,Total 9.5 mg/dL (7.6-11.0); Carbon Dioxide 24.5 mmol/L (21.0-32.0); Chloride 95 mmol/L (98-108); Globulin 2.5 g/dL (2.2-4.2); Glucose 90 mg/dL (70-99); Potassium 4.3 mmol/L (3.3-5.1)
[2025-03-03 18:58] LABS: Xtra Tube Kwok EXTRA TUBE
== END | disposition home or self-care (01) ==
LOC: POLAB3 10:57
PROVIDERS: PCP Family Medicine Geriatric Medicine; Visit Provider Family Medicine Geriatric Medicine
DX: E03.9 Hypothyroidism, unspecified (principal); E55.9 Vitamin D deficiency, unspecified; R53.83 Other fatigue
CPT/HCPCS: 36415; 80053; 82306; 85025

== ENCOUNTER 2025-03-31 14:30 | Outpatient (RCR) | payer MEDICARE, OTHER, SELFPAY ==
[2025-03-10 14:17] VITALS: BP 163/57; PULSE 70; RESP 16; TEMP 36.4
--- NOTE | 2025-03-10 14:53 | PCM.WC.HP ---
History of Present Illness Date of Service: 03/10/25 Chief Complaint: Right lower extremity traumatic wound History of Wound: This is a 75-year-old female who has presented repeatedly with traumatic wounds to both lower extremities. A wound on the right pretibial surface persists, though all other lower extremity wounds have healed. The patient is mobile and active. She denies swelling in her legs. She sleeps on a flat surface at night. She denies a history of thrombophlebitis. The patient denies a history of congestive heart failure, myocardial infarction, diabetes mellitus, cerebrovascular accident, hypertension, renal disease, and pulmonary disease. She has a history of hypothyroidism. A limited venous duplex examination was performed on October 26, 2022, examining only the right lower extremity, and revealing no evidence of thrombophlebitis. Valvular competence was not fully evaluated. [facility] Medical History Non-pressure chronic ulcer of right calf with fat layer exposed Non-pressure chronic ulcer of right lower leg with fat layer exposed Traumatic open wound of right lower leg Traumatic open wound of left lower leg Non-pressure chronic ulcer of left lower leg with fat layer exposed Non-pressure chronic ulcer of right lower leg with fat layer exposed Traumatic open wound of right lower leg with delayed healing Traumatic open wound of left lower leg with delayed healing Wears glasses Anxiety Alcohol use History of steroid therapy Easy bruising Back pain Injury of back Migraine headache Syncope History of IBS Former smoker Leg cramps History of edema History of stress test Cataracts, bilateral Arthritis Anemia Vitamin D deficiency, unspecified Hypothyroidism Home Medications ?Medication ?Instructions ?Recorded ?Last Taken ?Type lidocaine 5 % topical patch 2 patch topical DAILY 05/03/17 1 Day Ago History ~09/21/17 meloxicam 15 mg tablet 15 mg PO QDAY 05/03/17 09/22/17 History doxepin 10 mg capsule 10 mg PO QHS 12/16/19 Unknown History folic acid 400 mcg tablet 0.4 mg PO DAILY@0800 12/16/19 Unknown History linaclotide 145 mcg capsule 145 mcg PO DAILY 12/16/19 Unknown History estradiol 0.1 mg/24 hr semiweekly 2 patch transdermal MOTH 03/15/20 Unknown History transdermal patch (Bessie) acetaminophen 500 mg tablet 1,000 mg PO BID 01/06/22 Unknown History vitamin [id number] B1 100 mg-1 1 ml IM .QMO 01/06/22 Unknown History mg/mL intramuscular solution levothyroxine 50 mcg tablet 50 mcg PO DAILY 03/18/24 Unknown History gabapentin 100 mg capsule 100 mg PO BID 05/07/24 Unknown History loratadine 10 mg tablet 10 mg PO .prn 05/07/24 Unknown History sulfamethoxazole 800 1 tab PO Q12H #14 tabs 05/27/24 Unknown Rx mg-trimethoprim 160 mg tablet (Bactrim DS) cephalexin 500 mg capsule 500 mg PO 4X/DAY 07/08/24 Unknown History doxycycline hyclate 100 mg tablet 100 mg PO BID 07/08/24 Unknown History sulfamethoxazole 800 1 tab PO Q12H #14 tabs 07/08/24 Unknown Rx mg-trimethoprim 160 mg tablet (Bactrim DS) sulfamethoxazole 800 1 tab PO Q12H wound infection #14 09/10/24 Unknown Rx mg-trimethoprim 160 mg tablet tabs (Bactrim DS) Allergy/AdvReac Type Severity Reaction Status Date / Time No Known Allergies Allergy Verified 05/07/24 11:09 Family History Mother Rheumatoid arthritis Father Pancreatic cancer Cancer Grandfather Myocardial infarction Grandmother Thyroid disorder Surgical History Status post spinal disc removal History of tonsillectomy History of lumbar spinal fusion History of total hip replacement History of hysterectomy History of cervical discectomy Social History household members: spouse Smoking Status: Never smoker alcohol intake: current alcohol intake frequency: a few times a week Alcohol type: wine substance use type: does not use what type of physical activity do you participate in: other details: physical therapy frequency: 1-2 times per week Vital Signs Vital Signs Vital Signs: 03/10/25 14:17 Temperature 97.5 F L Temperature Source Temporal Pulse Rate 70 Respiratory Rate 16 Blood Pressure 163/57 H Blood Pressure Mean 92 Oxygen Delivery Method Room Air Physical Exam Const alert, oriented x3, no apparent distress, average body habitus and no limitations Constitutional Narrative: The patient's BMI is 19.7. She is of thin body habitus. General Appearance: cooperative, comfortable, well kempt and well developed Orientation / Consciousness: awake, oriented to person, oriented to place and oriented to time Exam Limitations: no limitations HEENT normocephalic, head/scalp atraumatic and hearing grossly normal bilaterally Head and Scalp: normal to inspection, normocephalic and atraumatic Face and Sinus: normal facial exam Nose: external nose normal External Ear: external ears normal Eyes EOMs intact bilaterally General Eye: normal appearance of both eyes Alignment: alignment normal Neck full ROM Resp normal respiratory effort, normal air movement, no retractions and no use of accessory muscles Effort and Inspection: able to speak in complete sentences Extremity no clubbing, cyanosis or edema and no calf tenderness Skin Wound Narrative: The patient's lower extremities appear warm and well-perfused. Pedal pulses are easily palpable bilaterally. There is no significant swelling or edema in the patient's lower extremities. The wounds on the patient's left lower extremity remain completely healed and epithelialized. The traumatic wound on the patient's right pretibial surface appears pink and healthy in appearance with a small amount of bioburden. There is evidence of granulation tissue and increasing peripheral epithelialization. There is no sign of infection or cellulitis. Wound dimensions are documented elsewhere. The wound has decreased in size significantly since the patient's last visit. Wound margins are well beveled. Hair: normal Neuro oriented x3, CN's II-XII intact bilaterally, moves all extremities, no focal motor deficits and no sensory deficits noted Sensorium / Orientation: awake, alert, oriented to person, oriented to place and oriented to time Speech: speech normal Psych Appearance: grossly normal and appropriate Attitude: calm Activity / Motor Behavior: appropriate eye contact Speech: normal speech Mood & Affect: euthymic mood Thought Process: normal thought process Thought Content: normal thought content Attention / Concentration: attention grossly intact Memory / Cognition: memory grossly intact Insight: insight good Judgement: judgement good Debridement Note Debridement Note Wound debrided: Traumatic right pretibial wound Laterality: Right Type of Debridement: Excisional debridement Anesthesia Used: 5% Lidocaine Gel and Cetacaine Depth: Down to and including healthy tissue and in the subcutaneous layer Percentage of wound debrided: 100 Instrument Used: 5mm curette Tissue Removed: Bioburden Severity: Fat Layer Exposed Amount of bleeding with debridement: Mild Bleeding Controlled with: Compression and gauze Patient tolerated procedure: Patient tolerated procedure well Post-Debridement Measurements and Additional Note: Post-Debridement Measurements/Treatment WC - Nurse 1 - General Ulcer Assessment Start: 03/10/25 14:16 Freq: Status: Active Protocol: QUIANA Activity Type Activity Date Activity User E-sign Co-sign Detail Recorded Client Recorded Date Recorded By Document 03/10/25 14:17 [id number] 03/10/25 14:22 TS 03/10/25 14:17 WC - Today's Visit Information Type of service Follow-up Visit (Physician/[employer]SIST[employer] ) Arrival Mode Ambulatory Patient Identification Verified (Name & Yes ) Patient Requires Transmission-Based No Precautions Safety Precautions Fall Prevention Vital Signs Temperature (97.8 F-99.1 F) 97.5 F L Temperature Source Temporal Pulse Rate (60-100) 70 Pulse Location Monitor Respiratory Rate (12-18) 16 Respiratory rate source Observation Oxygen Delivery Method Room Air Blood Pressure (90/60-120/80) 163/57 H Blood Pressure Mean 92 History Since Last Visit- (Skip if this is Patient's initial visit) Have you changed medications since your No last visit? Signs or symptoms of abuse and/or No neglect since last visit Have you been in the hospital since your No last visit? Has dressing in place as prescribed Yes Has compression in place as prescribed No Left Footwear Regular Shoe Right Footwear Regular Shoe Pain Scale: 0-10 Numeric Is Patient Pain Free? No - Nurse 1 - General Ulcer Measurement Start: 03/10/25 14:16 Freq: Status: Active Protocol: Activity Type Activity Date Activity User E-sign Co-sign Detail Recorded Client Recorded Date Recorded By Document 03/10/25 14:17 [id number] 03/10/25 14:22 TS 03/10/25 14:17 Wound Center Nurse 1 #4 Rt med le -Current Size (cm) - Length 1.5 -Current Size (cm) - Width 1 -Current Size (cm) - Depth 0.1 -Total Square Cm 1.5 -Date of Last Picture (Recall this 03/10/25 field) -Photo Taken Yes -Exudate Amt Small -Exudate Type Serosanguineous -Wound Margin Distinct, Outline Attached -Granulation Amt Medium (34-66%) -Granulation Quality [place],Red -Slough/Fibrin No -Structure Exposed None/Limited to Skin Breakdown -Texture (Joyce-wound Skin Appearance) Assessed -Moisture (Joyce-wound Skin Appearance) Assessed -Color (Joyce-wound Skin Appearance) Not Assessed -Temperature (Joyce-wound Skin No Abnormality Appearance) (Pt Warm) -Ulcer Cleansing Soap and Water -Foul Odor after Cleansing No -Anesthetic Used 5% Lidocaine Gel Lower Limb Edema Present No Point of measurement (cm from the medial 27 instep) Point of Measurement (cm from the medial 16.2 instep) WC - Nurse 2 - General Ulcer CM Notes Start: 03/10/25 14:16 Freq: Status: Active Protocol: Activity Type Activity Date Activity User E-sign Co-sign Detail Recorded Client Recorded Date Recorded By Document 03/10/25 14:34 DS [id number] 03/10/25 14:36 DS 03/10/25 14:34 Wound Center Nurse 2 #4 Rt med le -Time 14:34 -Correct Patient Yes -Correct Side, Site, Position Yes -Correct Procedure Yes -Procedure Performed Yes -Type of Procedure Debridement -Clinical Debridement Subcutaneous -Tissue Removed Subcutaneous -Post Debridement (cm) - Length 1.1 -Post Debridement (cm) - Width 0.7 -Post Debridement (cm) - Depth 0.1 -Total Square (Post) (cm) 0.77 -Area of Debridement (cm) - Length 1.1 -Area of Debridement (cm) - Width 0.7 -Total Square (Area) (cm) 0.77 -Tunneling No -Undermining/Tunneling No -Circular Undermining No -Wound/Ulcer Outcome Not Healed -Ulcer Cleansing gauze -Foul Odor after Cleansing No -Bioengineered Tissue No -Bleeding Controlled with Pressure -Treatment Response Procedure Tolerated Well -Debridement - Subq, 1st 20sq cm Yes -Wound Comment(s) cetecaine used Pain Scale: 0-10 Numeric Is Patient Pain Free? No RLE -Description Aching -Intensity 5 -Duration (hours) Chronic -Pain Behavior Facial Grimacing -Pain Aggravating Factors Debridement -Alleviating Factors/Interventions Will continue to monitor WC - Nurse 3 - General Ulcer D/C NN Start: 03/10/25 14:16 Freq: Status: Active Protocol: Activity Type Activity Date Activity User E-sign Co-sign Detail Recorded Client Recorded Date Recorded By Document 03/10/25 14:46 TS [id number] 03/10/25 14:47 TS 03/10/25 14:46 Wound Care Center Nurse 3 #4 Rt med le -Ulcer Cleansing Rinsed/ Irrigated with Saline -Primary Dressing Applied Aquacel Extra, Silicone Border Foam 4x4 -Patient Supplied Dressing Yes -Aquacel Extra 0 -Silicone Border Foam 4x4 1 -Wound Comment(s) Pt refused tubigrip Pain Scale: 0-10 Numeric Is Patient Pain Free? Yes WC - Visit Discharge Discharge Condition Stable Ambulatory Status Ambulatory Transportation Private Auto Medication Reconcilliation completed & No provided to patient/care provider Clinical Summary of Care Provided Yes Charges/Coding Procedures Integumentary [id number]: [id number] [place] subq tissue 20 sq cm/< Assessment/Plan Assessment/Plan (1) Non-pressure chronic ulcer of right calf with fat layer exposed: CODE(S): L97.212 - Non-pressure chronic ulcer of right calf with fat layer exposed (2) Non-pressure chronic ulcer of right lower leg with fat layer exposed: CODE(S): L97.912 - Non-pressure chronic ulcer of unspecified part of right lower leg with fat layer exposed (3) Traumatic open wound of right lower leg: CODE(S): S81.801A - Unspecified open wound, right lower leg, initial encounter QUALIFIERS: Encounter type: subsequent encounter Qualified Code(s): S81.801D - Unspecified open wound, right lower leg, subsequent encounter (4) Lumbar scoliosis: CODE(S): M41.9 - Scoliosis, unspecified QUALIFIERS: Scoliosis type: other secondary scoliosis Qualified Code(s): M41.56 - Other secondary scoliosis, lumbar region (5) Low back pain: CODE(S): M54.50 - Low back pain, unspecified QUALIFIERS: Chronicity: chronic Back pain laterality: unspecified Sciatica presence: unspecified whether sciatica present Qualified Code(s): M54.50 - Low back pain, unspecified; G89.29 - Other chronic pain (6) DDD (degenerative disc disease), lumbosacral: CODE(S): M51.37 - Other intervertebral disc degeneration, lumbosacral region QUALIFIERS: Disc-related pain type: unspecified whether pain present Qualified Code(s): M51.379 - Other intervertebral disc degeneration, lumbosacral region without mention of lumbar back pain or lower extremity pain (7) Hypothyroidism (acquired): CODE(S): E03.9 - Hypothyroidism, unspecified (8) Cataracts, bilateral: CODE(S): H26.9 - Unspecified cataract QUALIFIERS: Cataract type: unspecified Qualified Code(s): H26.9 - Unspecified cataract (9) History of tonsillectomy: CODE(S): Z90.89 - Acquired absence of other organs (10) History of IBS: CODE(S): Z87.19 - Personal history of other diseases of the digestive system (11) Former smoker: CODE(S): Z87.891 - Personal history of nicotine dependence (12) History of lumbar spinal fusion: CODE(S): Z98.1 - Arthrodesis status (13) History of hysterectomy: CODE(S): Z90.710 - Acquired absence of both cervix and uterus (14) History of cervical discectomy: CODE(S): Z98.890 - Other specified postprocedural states (15) History of total hip replacement: CODE(S): Z96.649 - Presence of unspecified artificial hip joint QUALIFIERS: Laterality: unspecified laterality Qualified Code(s): Z96.649 - Presence of unspecified artificial hip joint (16) Status post spinal disc removal: CODE(S): Z98.890 - Other specified postprocedural states PLAN: Plan This is a 75-year-old female who presented with traumatic wounds in both lower extremities. Although the patient does not relate significant swelling in her lower extremities, measures to prevent such swelling have been thoroughly discussed and implemented. The patient has been encouraged to elevate her lower extremities as much as possible. She has been advised to refrain from prolonged, idle sitting. She is to continue wearing her Tubigrips bilaterally on a daily basis. Activity has been encouraged. The patient has been encouraged to optimize her nutritional intake. The patient attests to the fact that her appetite is good, and she is consuming a well-balanced diet. The traumatic wounds in the left lower extremity remain completely healed and epithelialized. A traumatic wound persists on the right pretibial surface, which is progressively decreasing in size. A total of 10 EpiFix allografts have been applied in the recent past. We are to continue the use of moistened Aquacel Extra topically to the wound, which will be applied by the patient on a daily basis. The patient has been instructed in the appropriate means of application, and has been provided the necessary supplies. She is to return in 1 week for reevaluation. Total time: 24 minutes
--- NOTE | 2025-03-11 08:52 | WC ---
PHOTO-RIGHT WEEKS 03/10/25
[2025-03-17 14:34] VITALS: BP 135/63; PULSE 66; RESP 18; TEMP 35.7
--- NOTE | 2025-03-17 15:12 | PCM.WC.HP ---
History of Present Illness Date of Service: 03/17/25 Chief Complaint: Right lower extremity traumatic wound History of Wound: This is a 75-year-old female who has presented repeatedly with traumatic wounds to both lower extremities. A wound on the right pretibial surface persists, though all other lower extremity wounds have healed. The patient is mobile and active. She denies swelling in her legs. She sleeps on a flat surface at night. She denies a history of thrombophlebitis. The patient denies a history of congestive heart failure, myocardial infarction, diabetes mellitus, cerebrovascular accident, hypertension, renal disease, and pulmonary disease. She has a history of hypothyroidism. A limited venous duplex examination was performed on October 26, 2022, examining only the right lower extremity, and revealing no evidence of thrombophlebitis. Valvular competence was not fully evaluated. FORMERLY [facility] Medical History Non-pressure chronic ulcer of right calf with fat layer exposed Non-pressure chronic ulcer of right lower leg with fat layer exposed Traumatic open wound of right lower leg Traumatic open wound of left lower leg Non-pressure chronic ulcer of left lower leg with fat layer exposed Non-pressure chronic ulcer of right lower leg with fat layer exposed Traumatic open wound of right lower leg with delayed healing Traumatic open wound of left lower leg with delayed healing Wears glasses Anxiety Alcohol use History of steroid therapy Easy bruising Back pain Injury of back Migraine headache Syncope History of IBS Former smoker Leg cramps History of edema History of stress test Cataracts, bilateral Arthritis Anemia Vitamin D deficiency, unspecified Hypothyroidism Home Medications ?Medication ?Instructions ?Recorded ?Last Taken ?Type lidocaine 5 % topical patch 2 patch topical DAILY 05/03/17 1 Day Ago History ~09/21/17 meloxicam 15 mg tablet 15 mg PO QDAY 05/03/17 09/22/17 History doxepin 10 mg capsule 10 mg PO QHS 12/16/19 Unknown History folic acid 400 mcg tablet 0.4 mg PO DAILY@0800 12/16/19 Unknown History linaclotide 145 mcg capsule 145 mcg PO DAILY 12/16/19 Unknown History estradiol 0.1 mg/24 hr semiweekly 2 patch transdermal MOTH 03/15/20 Unknown History transdermal patch (Bessie) acetaminophen 500 mg tablet 1,000 mg PO BID 01/06/22 Unknown History vitamin [id number] B1 100 mg-1 1 ml IM .QMO 01/06/22 Unknown History mg/mL intramuscular solution levothyroxine 50 mcg tablet 50 mcg PO DAILY 03/18/24 Unknown History gabapentin 100 mg capsule 100 mg PO BID 05/07/24 Unknown History loratadine 10 mg tablet 10 mg PO .prn 05/07/24 Unknown History sulfamethoxazole 800 1 tab PO Q12H #14 tabs 05/27/24 Unknown Rx mg-trimethoprim 160 mg tablet (Bactrim DS) cephalexin 500 mg capsule 500 mg PO 4X/DAY 07/08/24 Unknown History doxycycline hyclate 100 mg tablet 100 mg PO BID 07/08/24 Unknown History sulfamethoxazole 800 1 tab PO Q12H #14 tabs 07/08/24 Unknown Rx mg-trimethoprim 160 mg tablet (Bactrim DS) sulfamethoxazole 800 1 tab PO Q12H wound infection #14 09/10/24 Unknown Rx mg-trimethoprim 160 mg tablet tabs (Bactrim DS) Allergy/AdvReac Type Severity Reaction Status Date / Time No Known Allergies Allergy Verified 05/07/24 11:09 Family History Mother Rheumatoid arthritis Father Pancreatic cancer Cancer Grandfather Myocardial infarction Grandmother Thyroid disorder Surgical History Status post spinal disc removal History of tonsillectomy History of lumbar spinal fusion History of total hip replacement History of hysterectomy History of cervical discectomy Social History household members: spouse Smoking Status: Never smoker alcohol intake: current alcohol intake frequency: a few times a week Alcohol type: wine substance use type: does not use what type of physical activity do you participate in: other details: physical therapy frequency: 1-2 times per week Vital Signs Vital Signs Vital Signs: 03/17/25 14:34 Temperature 96.3 F L Temperature Source Temporal Pulse Rate 66 Respiratory Rate 18 Blood Pressure 135/63 H Blood Pressure Mean 87 Physical Exam Const alert, oriented x3, no apparent distress, average body habitus and no limitations Constitutional Narrative: The patient's BMI is 19.7. She is of thin body habitus. General Appearance: cooperative, comfortable, well kempt and well developed Orientation / Consciousness: awake, oriented to person, oriented to place and oriented to time Exam Limitations: no limitations HEENT normocephalic, head/scalp atraumatic and hearing grossly normal bilaterally Head and Scalp: normal to inspection, normocephalic and atraumatic Face and Sinus: normal facial exam Nose: external nose normal External Ear: external ears normal Eyes EOMs intact bilaterally General Eye: normal appearance of both eyes Alignment: alignment normal Neck full ROM Resp normal respiratory effort, normal air movement, no retractions and no use of accessory muscles Effort and Inspection: able to speak in complete sentences Extremity no clubbing, cyanosis or edema and no calf tenderness Skin Wound Narrative: The patient's lower extremities appear warm and well-perfused. Pedal pulses are easily palpable bilaterally. There is no significant swelling or edema in the patient's lower extremities. The wounds on the patient's left lower extremity remain completely healed and epithelialized. The traumatic wound on the patient's right pretibial surface appears pink and healthy in appearance with a small amount of bioburden. There is evidence of pink, healthy, granulation tissue and increasing peripheral epithelialization. Wound margins are well beveled. The wound continues to decrease in size significantly. Dimensions are documented elsewhere. There is no sign of infection or cellulitis. Hair: normal Neuro oriented x3, CN's II-XII intact bilaterally, moves all extremities, no focal motor deficits and no sensory deficits noted Sensorium / Orientation: awake, alert, oriented to person, oriented to place and oriented to time Speech: speech normal Psych Appearance: grossly normal and appropriate Attitude: calm Activity / Motor Behavior: appropriate eye contact Speech: normal speech Mood & Affect: euthymic mood Thought Process: normal thought process Thought Content: normal thought content Attention / Concentration: attention grossly intact Memory / Cognition: memory grossly intact Insight: insight good Judgement: judgement good Debridement Note Debridement Note Wound debrided: Traumatic right pretibial wound Laterality: Right Type of Debridement: Excisional debridement Anesthesia Used: 5% Lidocaine Gel and Cetacaine Depth: Down to and including healthy tissue and in the subcutaneous layer Percentage of wound debrided: 100 Instrument Used: 3mm curette Tissue Removed: Bioburden Severity: Fat Layer Exposed Amount of bleeding with debridement: Mild Bleeding Controlled with: Compression and gauze Patient tolerated procedure: Patient tolerated procedure well Post-Debridement Measurements and Additional Note: Post-Debridement Measurements/Treatment WC - Nurse 1 - General Ulcer Assessment Start: 03/10/25 14:16 Freq: Status: Active Protocol: QUIANA Activity Type Activity Date Activity User E-sign Co-sign Detail Recorded Client Recorded Date Recorded By Document 03/10/25 14:17 [id number] 03/10/25 14:22 TS Document 03/17/25 14:34 [id number] 03/17/25 14:39 03/10/25 03/17/25 14:17 14:34 WC - Today's Visit Information Type of service Follow-up Visit Follow-up Visit (Physician/GENERAL MATCHER (Physician/GENERAL MATCHER ) ) Arrival Mode Ambulatory Ambulatory Transfer Assistance Manual Patient Identification Verified (Name & Yes Yes ) Patient Requires Transmission-Based No No Precautions Safety Precautions Fall Prevention NA Vital Signs Temperature (97.8 F-99.1 F) 97.5 F L 96.3 F L Temperature Source Temporal Temporal Pulse Rate (60-100) 70 66 Pulse Location Monitor Respiratory Rate (12-18) 16 18 Respiratory rate source Observation Observation Oxygen Delivery Method Room Air Blood Pressure (90/60-120/80) 163/57 H 135/63 H Blood Pressure Mean 92 87 History Since Last Visit- (Skip if this is Patient's initial visit) Have you changed medications since your No No last visit? Any new allergies or adverse reactions No Had a fall/change in ADL's that may No increase risk of falls Signs or symptoms of abuse and/or No No neglect since last visit Have you been in the hospital since your No No last visit? Has dressing in place as prescribed Yes Yes Has compression in place as prescribed No Yes Has offloadiing in place as prescribed N/A Experienced any changes in pain level or No management Left Footwear Regular Shoe Regular Shoe Right Footwear Regular Shoe Regular Shoe Pain Scale: 0-10 Numeric Is Patient Pain Free? No Yes - Nurse 1 - General Ulcer Measurement Start: 03/10/25 14:16 Freq: Status: Active Protocol: Activity Type Activity Date Activity User E-sign Co-sign Detail Recorded Client Recorded Date Recorded By Document 03/10/25 14:17 [id number] 03/10/25 14:22 TS Document 03/17/25 14:34 [id number] 03/17/25 14:39 03/10/25 03/17/25 14:17 14:34 Wound Center Nurse 1 #4 Rt med le -Combined with other wound No -Current Size (cm) - Length 1.5 0.7 -Current Size (cm) - Width 1 0.4 -Current Size (cm) - Depth 0.1 0.1 -Total Square Cm 1.5 0.28 -Date of Last Picture (Recall this 03/10/25 03/17/25 field) -Photo Taken Yes Yes -Epithelialization Medium 34-66% -Tunneling No -Undermining/Tunneling No -Circular Undermining No -Exudate Amt Small Medium -Exudate Type Serosanguineous Serosanguineous -Wound Margin Distinct, Distinct, Outline Outline Attached Attached -Granulation Amt Medium (34-66%) Small (1-33%) -Granulation Quality [place],Red [place],Red -Slough/Fibrin No No -Necrosis Amt None Present (0 %) -Structure Exposed None/Limited to N/A Skin Breakdown -Texture (Joyce-wound Skin Appearance) Assessed Assessed -Moisture (Joyce-wound Skin Appearance) Assessed Assessed -Color (Joyce-wound Skin Appearance) Not Assessed Assessed -Temperature (Joyce-wound Skin No Abnormality No Abnormality Appearance) (Pt Warm) (Pt Warm) -Tenderness on Palpation (Joyce-wound No Skin Appearance) -Ulcer Cleansing Soap and Water Soap and Water -Foul Odor after Cleansing No No -Anesthetic Used 5% Lidocaine 5% Lidocaine Gel Gel Lower Limb Edema Present No No Point of measurement (cm from the medial 27 instep) Point of Measurement (cm from the medial 16.2 instep) WC - Nurse 2 - General Ulcer CM Notes Start: 03/10/25 14:16 Freq: Status: Active Protocol: Activity Type Activity Date Activity User E-sign Co-sign Detail Recorded Client Recorded Date Recorded By Document 03/10/25 14:34 DS [id number] 03/10/25 14:36 DS Document 03/17/25 14:42 [id number] 03/17/25 14:45 03/10/25 03/17/25 14:34 14:42 Wound Center Nurse 2 #4 Rt med le -Time 14:34 14:43 -Correct Patient Yes Yes -Correct Side, Site, Position Yes Yes -Correct Procedure Yes Yes -Procedure Performed Yes Yes -Type of Procedure Debridement Debridement -Clinical Debridement Subcutaneous Subcutaneous -Tissue Removed Subcutaneous Subcutaneous -Post Debridement (cm) - Length 1.1 0.7 -Post Debridement (cm) - Width 0.7 0.4 -Post Debridement (cm) - Depth 0.1 0.1 -Total Square (Post) (cm) 0.77 0.28 -Area of Debridement (cm) - Length 1.1 0.7 -Area of Debridement (cm) - Width 0.7 0.4 -Total Square (Area) (cm) 0.77 0.28 -Tunneling No No -Undermining/Tunneling No No -Circular Undermining No No -Wound/Ulcer Outcome Not Healed Not Healed -Ulcer Cleansing gauze gauze -Foul Odor after Cleansing No No -Bioengineered Tissue No No -Bleeding Controlled with Pressure -Treatment Response Procedure Tolerated Well -Debridement - Subq, 1st 20sq cm Yes Yes -Wound Comment(s) cetecaine used Pain Scale: 0-10 Numeric Is Patient Pain Free? No Yes RLE -Description Aching -Intensity 5 -Duration (hours) Chronic -Pain Behavior Facial Grimacing -Pain Aggravating Factors Debridement -Alleviating Factors/Interventions Will continue to monitor - Nurse 3 - General Ulcer D/C NN Start: 03/10/25 14:16 Freq: Status: Active Protocol: Activity Type Activity Date Activity User E-sign Co-sign Detail Recorded Client Recorded Date Recorded By Document 03/10/25 14:46 [id number] 03/10/25 14:47 Document 03/17/25 14:46 [id number] 03/17/25 14:47 03/10/25 03/17/25 14:46 14:46 Wound Care Center Nurse 3 #4 Rt med le -Ulcer Cleansing Rinsed/ Not Cleansed Irrigated with Saline -Foul Odor after Cleansing No -Negative Pressure Wound Therapy N/A -Primary Dressing Applied Aquacel Extra, Aquacel Extra, Silicone Border Silicone Border Foam 4x4 Foam 4x4 -Primary Dressing Covered/Secured with Dry Gauze -Patient Supplied Dressing Yes Yes -Aquacel Extra 0 0 -Silicone Border Foam 4x4 1 1 -Wound Comment(s) Pt refused tubigrip Pain Scale: 0-10 Numeric Is Patient Pain Free? Yes Yes - Visit Discharge Discharge Condition Stable Stable Ambulatory Status Ambulatory Ambulatory Transportation Private Auto Private Auto Medication Reconcilliation completed & No No provided to patient/care provider Clinical Summary of Care Provided Yes Yes Charges/Coding Procedures Integumentary [id number]: [id number] [place] subq tissue 20 sq cm/< Assessment/Plan Assessment/Plan (1) Non-pressure chronic ulcer of right calf with fat layer exposed: CODE(S): L97.212 - Non-pressure chronic ulcer of right calf with fat layer exposed (2) Non-pressure chronic ulcer of right lower leg with fat layer exposed: CODE(S): L97.912 - Non-pressure chronic ulcer of unspecified part of right lower leg with fat layer exposed (3) Traumatic open wound of right lower leg: CODE(S): S81.801A - Unspecified open wound, right lower leg, initial encounter QUALIFIERS: Encounter type: subsequent encounter Qualified Code(s): S81.801D - Unspecified open wound, right lower leg, subsequent encounter (4) Lumbar scoliosis: CODE(S): M41.9 - Scoliosis, unspecified QUALIFIERS: Scoliosis type: other secondary scoliosis Qualified Code(s): M41.56 - Other secondary scoliosis, lumbar region (5) Low back pain: CODE(S): M54.50 - Low back pain, unspecified QUALIFIERS: Chronicity: chronic Back pain laterality: unspecified Sciatica presence: unspecified whether sciatica present Qualified Code(s): M54.50 - Low back pain, unspecified; G89.29 - Other chronic pain (6) DDD (degenerative disc disease), lumbosacral: CODE(S): M51.37 - Other intervertebral disc degeneration, lumbosacral region QUALIFIERS: Disc-related pain type: unspecified whether pain present Qualified Code(s): M51.379 - Other intervertebral disc degeneration, lumbosacral region without mention of lumbar back pain or lower extremity pain (7) Hypothyroidism (acquired): CODE(S): E03.9 - Hypothyroidism, unspecified (8) Cataracts, bilateral: CODE(S): H26.9 - Unspecified cataract QUALIFIERS: Cataract type: unspecified Qualified Code(s): H26.9 - Unspecified cataract (9) History of tonsillectomy: CODE(S): Z90.89 - Acquired absence of other organs (10) History of IBS: CODE(S): Z87.19 - Personal history of other diseases of the digestive system (11) Former smoker: CODE(S): Z87.891 - Personal history of nicotine dependence (12) History of lumbar spinal fusion: CODE(S): Z98.1 - Arthrodesis status (13) History of hysterectomy: CODE(S): Z90.710 - Acquired absence of both cervix and uterus (14) History of cervical discectomy: CODE(S): Z98.890 - Other specified postprocedural states (15) History of total hip replacement: CODE(S): Z96.649 - Presence of unspecified artificial hip joint QUALIFIERS: Laterality: unspecified laterality Qualified Code(s): Z96.649 - Presence of unspecified artificial hip joint (16) Status post spinal disc removal: CODE(S): Z98.890 - Other specified postprocedural states PLAN: Plan This is a 75-year-old female who presented with traumatic wounds in both lower extremities. Although the patient does not relate significant swelling in her lower extremities, measures to prevent such swelling have been thoroughly discussed and implemented. The patient has been encouraged to elevate her lower extremities as much as possible. She has been advised to refrain from prolonged, idle sitting. She is to continue wearing her Tubigrips bilaterally on a daily basis. Activity has been encouraged. The patient has been encouraged to optimize her nutritional intake. The patient attests to the fact that her appetite is good, and she is consuming a well-balanced diet. The traumatic wounds in the left lower extremity remain completely healed and epithelialized. A traumatic wound persists on the right pretibial surface, which is progressively decreasing in size. A total of 10 EpiFix allografts have been applied in the recent past. We are to continue the use of moistened Aquacel Extra topically to the wound, which will be applied by the patient on a daily basis. The patient has been instructed in the appropriate means of application, and has been provided the necessary supplies. She is to return in 2 weeks for reevaluation. Total time: 22 minutes
--- NOTE | 2025-03-18 09:10 | WC ---
PHOTO-RLE 03/17/25
[2025-03-31 14:27] VITALS: BP 126/60; PULSE 70; RESP 18; TEMP 35.8
--- NOTE | 2025-03-31 15:33 | PCM.WC.HP ---
History of Present Illness Date of Service: 03/31/25 Chief Complaint: Right lower extremity traumatic wound History of Wound: This is a 75-year-old female who has presented repeatedly with traumatic wounds to both lower extremities. A wound on the right pretibial surface persisted, though all other lower extremity wounds have healed. The patient is mobile and active. She denies swelling in her legs. She sleeps on a flat surface at night. She denies a history of thrombophlebitis. The patient denies a history of congestive heart failure, myocardial infarction, diabetes mellitus, cerebrovascular accident, hypertension, renal disease, and pulmonary disease. She has a history of hypothyroidism. A limited venous duplex examination was performed on October 26, 2022, examining only the right lower extremity, and revealing no evidence of thrombophlebitis. Valvular competence was not fully evaluated. [facility] Medical History Non-pressure chronic ulcer of right calf with fat layer exposed Non-pressure chronic ulcer of right lower leg with fat layer exposed Traumatic open wound of right lower leg Traumatic open wound of left lower leg Non-pressure chronic ulcer of left lower leg with fat layer exposed Non-pressure chronic ulcer of right lower leg with fat layer exposed Traumatic open wound of right lower leg with delayed healing Traumatic open wound of left lower leg with delayed healing Wears glasses Anxiety Alcohol use History of steroid therapy Easy bruising Back pain Injury of back Migraine headache Syncope History of IBS Former smoker Leg cramps History of edema History of stress test Cataracts, bilateral Arthritis Anemia Vitamin D deficiency, unspecified Hypothyroidism Home Medications ?Medication ?Instructions ?Recorded ?Last Taken ?Type lidocaine 5 % topical patch 2 patch topical DAILY 05/03/17 1 Day Ago History ~09/21/17 meloxicam 15 mg tablet 15 mg PO QDAY 05/03/17 09/22/17 History doxepin 10 mg capsule 10 mg PO QHS 12/16/19 Unknown History folic acid 400 mcg tablet 0.4 mg PO DAILY@0800 12/16/19 Unknown History linaclotide 145 mcg capsule 145 mcg PO DAILY 12/16/19 Unknown History estradiol 0.1 mg/24 hr semiweekly 2 patch transdermal MOTH 03/15/20 Unknown History transdermal patch (Bessie) acetaminophen 500 mg tablet 1,000 mg PO BID 01/06/22 Unknown History vitamin I60-pdeoryp B1 100 mg-1 1 ml IM .QMO 01/06/22 Unknown History mg/mL intramuscular solution levothyroxine 50 mcg tablet 50 mcg PO DAILY 03/18/24 Unknown History gabapentin 100 mg capsule 100 mg PO BID 05/07/24 Unknown History loratadine 10 mg tablet 10 mg PO .prn 05/07/24 Unknown History sulfamethoxazole 800 1 tab PO Q12H #14 tabs 05/27/24 Unknown Rx mg-trimethoprim 160 mg tablet (Bactrim DS) cephalexin 500 mg capsule 500 mg PO 4X/DAY 07/08/24 Unknown History doxycycline hyclate 100 mg tablet 100 mg PO BID 07/08/24 Unknown History sulfamethoxazole 800 1 tab PO Q12H #14 tabs 07/08/24 Unknown Rx mg-trimethoprim 160 mg tablet (Bactrim DS) sulfamethoxazole 800 1 tab PO Q12H wound infection #14 09/10/24 Unknown Rx mg-trimethoprim 160 mg tablet tabs (Bactrim DS) Allergy/AdvReac Type Severity Reaction Status Date / Time No Known Allergies Allergy Verified 05/07/24 11:09 Family History Mother Rheumatoid arthritis Father Pancreatic cancer Cancer Grandfather Myocardial infarction Grandmother Thyroid disorder Surgical History Status post spinal disc removal History of tonsillectomy History of lumbar spinal fusion History of total hip replacement History of hysterectomy History of cervical discectomy Social History household members: spouse Smoking Status: Never smoker alcohol intake: current alcohol intake frequency: a few times a week Alcohol type: wine substance use type: does not use what type of physical activity do you participate in: other details: physical therapy frequency: 1-2 times per week Vital Signs Vital Signs Vital Signs: 03/31/25 14:27 Temperature 96.5 F L Temperature Source Temporal Pulse Rate 70 Respiratory Rate 18 Blood Pressure 126/60 H Blood Pressure Mean 82 Oxygen Delivery Method Room Air Physical Exam Const alert, oriented x3, no apparent distress, average body habitus and no limitations Constitutional Narrative: The patient's BMI is 19.7. She is of thin body habitus. General Appearance: cooperative, comfortable, well kempt and well developed Orientation / Consciousness: awake, oriented to person, oriented to place and oriented to time Exam Limitations: no limitations HEENT normocephalic, head/scalp atraumatic and hearing grossly normal bilaterally Head and Scalp: normal to inspection, normocephalic and atraumatic Face and Sinus: normal facial exam Nose: external nose normal External Ear: external ears normal Eyes EOMs intact bilaterally General Eye: normal appearance of both eyes Alignment: alignment normal Neck full ROM Resp normal respiratory effort, normal air movement, no retractions and no use of accessory muscles Effort and Inspection: able to speak in complete sentences Extremity no clubbing, cyanosis or edema and no calf tenderness Skin Wound Narrative: The patient's lower extremities appear warm and well-perfused. Pedal pulses are easily palpable bilaterally. There is no significant swelling or edema in the patient's lower extremities. The wounds on the patient's left lower extremity remain completely healed and epithelialized. The traumatic wound on the patient's right pretibial surface is now completely healed and epithelialized. All lower extremity wounds have now been successfully healed. Hair: normal Neuro oriented x3, CN's II-XII intact bilaterally, moves all extremities, no focal motor deficits and no sensory deficits noted Sensorium / Orientation: awake, alert, oriented to person, oriented to place and oriented to time Speech: speech normal Psych Appearance: grossly normal and appropriate Attitude: calm Activity / Motor Behavior: appropriate eye contact Speech: normal speech Mood & Affect: euthymic mood Thought Process: normal thought process Thought Content: normal thought content Attention / Concentration: attention grossly intact Memory / Cognition: memory grossly intact Insight: insight good Judgement: judgement good Debridement Note Debridement Note No debridement was completed: No debridement was completed today (The patient's wounds are completely healed and epithelialized.) Post-Debridement Measurements and Additional Note: Post-Debridement Measurements/Treatment - Nurse 1 - General Ulcer Assessment Start: 03/10/25 14:16 Freq: Status: Active Protocol: QUIANA Activity Type Activity Date Activity User E-sign Co-sign Detail Recorded Client Recorded Date Recorded By Document 03/10/25 14:17 TS [id number] 03/10/25 14:22 TS Document 03/17/25 14:34 [id number] 03/17/25 14:39 Document 03/31/25 14:27 [id number] 03/31/25 14:35 03/10/25 03/17/25 03/31/25 14:17 14:34 14:27 - Today's Visit Information Type of service Follow-up Visit Follow-up Visit Follow-up Visit (Physician/TIME RECORDER (Physician/TIME RECORDER (Physician/TIME RECORDER ) ) ) Arrival Mode Ambulatory Ambulatory Ambulatory Transfer Assistance Manual Patient Identification Verified (Name & Yes Yes No ) Patient Requires Transmission-Based No No Precautions Safety Precautions Fall Prevention NA Vital Signs Temperature (97.8 F-99.1 F) 97.5 F L 96.3 F L 96.5 F L Temperature Source Temporal Temporal Temporal Pulse Rate (60-100) 70 66 70 Pulse Location Monitor Monitor Respiratory Rate (12-18) 16 18 18 Respiratory rate source Observation Observation Observation Oxygen Delivery Method Room Air Room Air Blood Pressure (90/60-120/80) 163/57 H 135/63 H 126/60 H Blood Pressure Mean 92 87 82 History Since Last Visit- (Skip if this is Patient's initial visit) Have you changed medications since your No No No last visit? Any new allergies or adverse reactions No No Had a fall/change in ADL's that may No No increase risk of falls Signs or symptoms of abuse and/or No No No neglect since last visit Have you been in the hospital since your No No No last visit? Has dressing in place as prescribed Yes Yes Yes Has compression in place as prescribed No Yes N/A Has offloadiing in place as prescribed N/A N/A Experienced any changes in pain level or No No management Left Footwear Regular Shoe Regular Shoe Regular Shoe Right Footwear Regular Shoe Regular Shoe Regular Shoe Pain Scale: 0-10 Numeric Is Patient Pain Free? No Yes Yes - Nurse 1 - General Ulcer Measurement Start: 03/10/25 14:16 Freq: Status: Active Protocol: Activity Type Activity Date Activity User E-sign Co-sign Detail Recorded Client Recorded Date Recorded By Document 03/10/25 14:17 [id number] 03/10/25 14:22 Document 03/17/25 14:34 [id number] 03/17/25 14:39 Document 03/31/25 14:27 [id number] 03/31/25 14:35 03/10/25 03/17/25 03/31/25 14:17 14:34 14:27 Wound Center Nurse 1 #4 Rt med le -Combined with other wound No No -Current Size (cm) - Length 1.5 0.7 0.1 -Current Size (cm) - Width 1 0.4 0.1 -Current Size (cm) - Depth 0.1 0.1 0.1 -Total Square Cm 1.5 0.28 0.01 -Date of Last Picture (Recall this 03/10/25 03/17/25 03/31/25 field) -Photo Taken Yes Yes Yes -Epithelialization Medium 34-66% Large 67-100% -Tunneling No No -Undermining/Tunneling No No -Circular Undermining No No -Exudate Amt Small Medium None Present -Exudate Type Serosanguineous Serosanguineous -Wound Margin Distinct, Distinct, Flat & Intact Outline Outline Attached Attached -Granulation Amt Medium (34-66%) Small (1-33%) None Present (0 %) -Granulation Quality [employer],Red [employer],Red [place] [employer],Red -Slough/Fibrin No No No -Necrosis Amt None Present (0 None Present (0 %) %) -Structure Exposed None/Limited to N/A N/A Skin Breakdown -Texture (Joyce-wound Skin Appearance) Assessed Assessed Assessed -Moisture (Joyce-wound Skin Appearance) Assessed Assessed Assessed -Color (Joyce-wound Skin Appearance) Not Assessed Assessed Assessed -Temperature (Joyce-wound Skin No Abnormality No Abnormality No Abnormality Appearance) (Pt Warm) (Pt Warm) (Pt Warm) -Tenderness on Palpation (Joyce-wound No No Skin Appearance) -Ulcer Cleansing Soap and Water Soap and Water Soap and Water -Foul Odor after Cleansing No No No -Anesthetic Used 5% Lidocaine 5% Lidocaine 5% Lidocaine Gel Gel Gel Lower Limb Edema Present No No No Point of measurement (cm from the medial 27 instep) Point of Measurement (cm from the medial 16.2 instep) WC - Nurse 2 - General Ulcer CM Notes Start: 03/10/25 14:16 Freq: Status: Active Protocol: Activity Type Activity Date Activity User E-sign Co-sign Detail Recorded Client Recorded Date Recorded By Document 03/10/25 14:34 DS [id number] 03/10/25 14:36 DS Document 03/17/25 14:42 GM [id number] 03/17/25 14:45 GM Edit Result 03/17/25 14:42 GM (1) [id number] 03/18/25 13:11 GM Document 03/31/25 14:51 DS [id number] 03/31/25 14:52 DS Edit Result 03/31/25 14:51 DS (2) [id number] 03/31/25 15:25 DS (1) #4 Rt med le - Bleeding Controlled with => Pressure - Treatment Response => Procedure => Tolerated Well - Wound Comment(s) => cetacaine (2) #4 Rt med le - Post Debridement (cm) - Length => 0 - Post Debridement (cm) - Width => 0 - Post Debridement (cm) - Depth => 0 - Total Square (Post) (cm) => 0 - Area of Debridement (cm) - Length => 0 - Area of Debridement (cm) - Width => 0 - Total Square (Area) (cm) => 0 03/10/25 03/17/25 03/31/25 14:34 14:42 14:51 Wound Center Nurse 2 #4 Rt med le -Time 14:34 14:43 14:51 -Correct Patient Yes Yes Yes -Correct Side, Site, Position Yes Yes Yes -Correct Procedure Yes Yes -Procedure Performed Yes Yes No -Type of Procedure Debridement Debridement -Clinical Debridement Subcutaneous Subcutaneous -Tissue Removed Subcutaneous Subcutaneous -Post Debridement (cm) - Length 1.1 0.7 0 -Post Debridement (cm) - Width 0.7 0.4 0 -Post Debridement (cm) - Depth 0.1 0.1 0 -Total Square (Post) (cm) 0.77 0.28 0 -Area of Debridement (cm) - Length 1.1 0.7 0 -Area of Debridement (cm) - Width 0.7 0.4 0 -Total Square (Area) (cm) 0.77 0.28 0 -Tunneling No No -Undermining/Tunneling No No -Circular Undermining No No -Wound/Ulcer Outcome Not Healed Not Healed Healed- Epithelialized -Ulcer Cleansing gauze gauze -Foul Odor after Cleansing No No -Bioengineered Tissue No No -Bleeding Controlled with Pressure Pressure -Treatment Response Procedure Procedure Tolerated Well Tolerated Well -Debridement - Subq, 1st 20sq cm Yes Yes -Wound Comment(s) cetecaine used cetacaine Pain Scale: 0-10 Numeric Is Patient Pain Free? No Yes Yes RLE -Description Aching -Intensity 5 -Duration (hours) Chronic -Pain Behavior Facial Grimacing -Pain Aggravating Factors Debridement -Alleviating Factors/Interventions Will continue to monitor WC - Nurse 3 - General Ulcer D/C NN Start: 03/10/25 14:16 Freq: Status: Active Protocol: Activity Type Activity Date Activity User E-sign Co-sign Detail Recorded Client Recorded Date Recorded By Document 03/10/25 14:46 TS [id number] 03/10/25 14:47 TS Document 03/17/25 14:46 GM [id number] 03/17/25 14:47 GM Document 03/31/25 14:54 DS [id number] 03/31/25 14:55 DS 03/10/25 03/17/25 03/31/25 14:46 14:46 14:54 Wound Care Center Nurse 3 #4 Rt med le -Ulcer Cleansing Rinsed/ Not Cleansed Irrigated with Saline -Foul Odor after Cleansing No -Negative Pressure Wound Therapy N/A -Primary Dressing Applied Aquacel Extra, Aquacel Extra, Silicone Border Silicone Border Silicone Border Foam 4x4 Foam 4x4 Foam 4x4 -Primary Dressing Covered/Secured with Dry Gauze -Patient Supplied Dressing Yes Yes -Aquacel Extra 0 0 -Silicone Border Foam 4x4 1 1 1 -Wound Comment(s) Pt refused pt d/c tubigrip Pain Scale: 0-10 Numeric Is Patient Pain Free? Yes Yes Yes WC - Visit Discharge Discharge Condition Stable Stable Stable Ambulatory Status Ambulatory Ambulatory Ambulatory Transportation Private Auto Private Auto Private Auto Medication Reconcilliation completed & No No provided to patient/care provider Clinical Summary of Care Provided Yes Yes Charges/Coding Visit Charges Office Visits / Consults: [id number] OV L3 Est 20min Assessment/Plan Assessment/Plan (1) Non-pressure chronic ulcer of right calf with fat layer exposed: CODE(S): L97.212 - Non-pressure chronic ulcer of right calf with fat layer exposed (2) Non-pressure chronic ulcer of right lower leg with fat layer exposed: CODE(S): L97.912 - Non-pressure chronic ulcer of unspecified part of right lower leg with fat layer exposed (3) Traumatic open wound of right lower leg: CODE(S): S81.801A - Unspecified open wound, right lower leg, initial encounter QUALIFIERS: Encounter type: subsequent encounter Qualified Code(s): S81.801D - Unspecified open wound, right lower leg, subsequent encounter (4) Lumbar scoliosis: CODE(S): M41.9 - Scoliosis, unspecified QUALIFIERS: Scoliosis type: other secondary scoliosis Qualified Code(s): M41.56 - Other secondary scoliosis, lumbar region (5) Low back pain: CODE(S): M54.50 - Low back pain, unspecified QUALIFIERS: Chronicity: chronic Back pain laterality: unspecified Sciatica presence: unspecified whether sciatica present Qualified Code(s): M54.50 - Low back pain, unspecified; G89.29 - Other chronic pain (6) DDD (degenerative disc disease), lumbosacral: CODE(S): M51.37 - Other intervertebral disc degeneration, lumbosacral region QUALIFIERS: Disc-related pain type: unspecified whether pain present Qualified Code(s): M51.379 - Other intervertebral disc degeneration, lumbosacral region without mention of lumbar back pain or lower extremity pain (7) Hypothyroidism (acquired): CODE(S): E03.9 - Hypothyroidism, unspecified (8) Cataracts, bilateral: CODE(S): H26.9 - Unspecified cataract QUALIFIERS: Cataract type: unspecified Qualified Code(s): H26.9 - Unspecified cataract (9) History of tonsillectomy: CODE(S): Z90.89 - Acquired absence of other organs (10) History of IBS: CODE(S): Z87.19 - Personal history of other diseases of the digestive system (11) Former smoker: CODE(S): Z87.891 - Personal history of nicotine dependence (12) History of lumbar spinal fusion: CODE(S): Z98.1 - Arthrodesis status (13) History of hysterectomy: CODE(S): Z90.710 - Acquired absence of both cervix and uterus (14) History of cervical discectomy: CODE(S): Z98.890 - Other specified postprocedural states (15) History of total hip replacement: CODE(S): Z96.649 - Presence of unspecified artificial hip joint QUALIFIERS: Laterality: unspecified laterality Qualified Code(s): Z96.649 - Presence of unspecified artificial hip joint (16) Status post spinal disc removal: CODE(S): Z98.890 - Other specified postprocedural states PLAN: Plan This is a 75-year-old female who presented with traumatic wounds in both lower extremities. As of this visit, the patient's right lower extremity wound is completely healed and epithelialized. All wounds are now successfully healed. Therefore, the patient is to be discharged, and will follow-up henceforth on an as needed basis. She has been encouraged to pad and protect the recently healed ulceration for 10 to 14 days to prevent inadvertent trauma to the area. Total time: 22 minutes
--- NOTE | 2025-04-01 09:11 | WC ---
PHOTO-RIGHT WEEKS 03/31/25
== END 2025-04-08 14:14 | disposition home or self-care (01) ==
LOC: WC 14:30
PROVIDERS: PCP Family Medicine Geriatric Medicine; Referring Provider Family Medicine Geriatric Medicine; Visit Provider Surgery
DX: L97.212 Non-pressure chronic ulcer of right calf with fat layer exposed (principal); Z90.710 Acquired absence of both cervix and uterus; E03.9 Hypothyroidism, unspecified; M51.370 Other intervertebral disc degeneration, lumbosacral region with discogenic back pain only; G89.29 Other chronic pain; H26.9 Unspecified cataract; Z87.891 Personal history of nicotine dependence; Z98.1 Arthrodesis status; M41.56 Other secondary scoliosis, lumbar region; Z87.19 Personal history of other diseases of the digestive system; Z90.89 Acquired absence of other organs; Z96.649 Presence of unspecified artificial hip joint; S81.801D Unspecified open wound, right lower leg, subsequent encounter
CPT/HCPCS: 11042; 99212; G0463